=== PATIENT | female | born 2000 | race African-American/Black ===

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

== ENCOUNTER 2018-11-23 10:47 | Emergency (ER) | payer OTHER, SELFPAY ==
--- NOTE | 2018-11-23 11:02 | ER ---
Nurse's Notes [facility] Name: Emily Rahman Age: 18 yrs Sex: Female : 2000 Arrival Date: 11/23/2018 Time: 10:51 Bed Waiting Private MD: Diagnosis: Otitis media, unspecified, left ear Presentation: 11/23 10:58 Presenting complaint: Patient states: my left ear has been clogged for like a week. aa5 Transition of care: patient was not received from another setting of care. Onset of symptoms was November 16, 2018. Risk Assessment: Do you want to hurt yourself or someone else? Patient reports no desire to harm self or others. Initial Sepsis Screen: Does the patient meet any 2 criteria? No. Patient's initial sepsis screen is negative. Does the patient have a suspected source of infection? No. Patient's initial sepsis screen is negative. Care prior to arrival: None. 10:58 Method Of Arrival: Ambulatory aa5 10:58 Acuity: CUCA 5 aa5 Triage Assessment: 10:59 General: Appears in no apparent distress. Behavior is calm, cooperative. Pain: Denies aa5 pain. EENT: Reports "clogged ear". 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 - Social history:: Smoking status: Patient/guardian denies using tobacco. - Ebola Screening: : Patient negative for fever greater than or equal to 101.5 degrees Fahrenheit, and additional compatible Ebola Virus Disease symptoms Patient denies exposure to infectious person Patient denies travel to an Ebola-affected area in the 21 days before illness onset No symptoms or risks identified at this time. Screenin:00 Abuse screen: Denies threats or abuse. Nutritional screening: No deficits noted. aa5 Tuberculosis screening: No symptoms or risk factors identified. Fall Risk None identified. Assessment: 11:00 General: Appears comfortable, Behavior is calm, cooperative. Pain: Denies pain. Neuro: aa5 Level of Consciousness is awake, alert, obeys commands, Oriented to person, place, time, situation. Cardiovascular: Patient's skin is warm and dry. Respiratory: Airway is patent Respiratory effort is even, unlabored, Respiratory pattern is regular, symmetrical. GI: No signs and/or symptoms were reported involving the gastrointestinal system. : No signs and/or symptoms were reported regarding the genitourinary system. EENT: Reports "my left ear was clogged" . Derm: Skin is dry, Skin is normal, Skin temperature is warm. Musculoskeletal: Range of motion: intact in all extremities. Vital Signs: 10:59 BP 128 / 79; Pulse 76; Resp 18; Temp 98.2; Pulse Ox 99% ; Weight 89.81 kg; Height 5 ft. aa5 4 in. (162.56 cm); Pain 0/10; 10:59 Body Mass Index 33.99 (89.81 kg, 162.56 cm) aa5 ED Course: 10:51 Patient arrived in ED. mr 10:51 Peyton Westbrook [facility]C [facility] kb 10:51 Vijay Fowler MD is Attending Physician. kb 10:59 Triage completed. aa5 11:00 Arm band placed on right wrist. aa5 11:00 Patient has correct armband on for positive identification. aa5 11:00 No provider procedures requiring assistance completed. Patient did not have IV access aa5 during this emergency room visit. 11:09 Brianna Villegas, RN is Primary Nurse. aa5 Administered Medications: No medications were administered Outcome: 11:01 Discharge ordered by MD. kb 11:22 Discharged to home ambulatory. aj 11:22 Condition: good 11:22 Discharge instructions given to patient, Instructed on discharge instructions, follow up and referral plans. medication usage, Demonstrated understanding of instructions, follow-up care, medications, Prescriptions given X 1. 11:22 Patient left the ED. aj Signatures: Peyton Westbrook FNP-C FNP-Cara Pena RN RN aj Rivera, Mary mr Brianna Villegas, SOHA RN aa5 Corrections: (The following items were deleted from the chart) 11:28 11:00 Derm: Skin is pink, warm \\T\\ dry. aa5 aa5
--- NOTE | 2018-11-23 11:02 | EDPHYS ---
Physician Documentation [facility] Name: Emily Rahman Age: 18 yrs Sex: Female : 2000 Arrival Date: 11/23/2018 Time: 10:51 Bed Waiting Private MD: ED Physician Vijay Fowler HPI: 11/23 11:03 This 18 yrs old Black Female presents to ER via Ambulatory with complaints of Ear Pain. kb 11:03 The patient presents with "clogged". The complaints affect the left ear. Onset: The kb symptoms/episode began/occurred 1 week(s) ago. Modifying factors: The symptoms are alleviated by nothing, the symptoms are aggravated by nothing. Associated signs and symptoms: The patient has no apparent associated signs or symptoms. Severity of symptoms: At their worst the symptoms were moderate in the emergency department the symptoms are unchanged. The patient has not experienced similar symptoms in the past. The patient has not recently seen a physician. Pt reports her left ear has been clogged for a week. . BUSHLER: 10:59 LMP 11/16/2018 aa5 Historical: - Allergies: 10:59 No Known Allergies; aa5 - Home Meds: 10:59 None [Active]; aa5 - PMHx: 10:59 None; aa5 - PSHx: 10:59 Tonsillectomy; aa5 - Immunization history:: Adult Immunizations up to date. - Social history:: Smoking status: Patient/guardian denies using tobacco. - Ebola Screening: : Patient negative for fever greater than or equal to 101.5 degrees Fahrenheit, and additional compatible Ebola Virus Disease symptoms Patient denies exposure to infectious person Patient denies travel to an Ebola-affected area in the 21 days before illness onset No symptoms or risks identified at this time. ROS: 11:02 Constitutional: Negative for fever, chills, and weight loss, Cardiovascular: Negative kb for chest pain, palpitations, and edema, Respiratory: Negative for shortness of breath, cough, wheezing, and pleuritic chest pain, Abdomen/GI: Negative for abdominal pain, nausea, vomiting, diarrhea, and constipation, MS/Extremity: Negative for injury and deformity, Skin: Negative for injury, rash, and discoloration, Neuro: Negative for headache, weakness, numbness, tingling, and seizure. 11:02 ENT: Positive for ear pain. Exam: 11:02 Constitutional: This is a well developed, well nourished patient who is awake, alert, kb and in no acute distress. Head/Face: Normocephalic, atraumatic. Chest/axilla: Normal chest wall appearance and motion. Nontender with no deformity. No lesions are appreciated. Cardiovascular: Regular rate and rhythm with a normal S1 and S2. No gallops, murmurs, or rubs. Normal PMI, no JVD. No pulse deficits. Respiratory: Lungs have equal breath sounds bilaterally, clear to auscultation and percussion. No rales, rhonchi or wheezes noted. No increased work of breathing, no retractions or nasal flaring. Abdomen/GI: Soft, non-tender, with normal bowel sounds. No distension or tympany. No guarding or rebound. No evidence of tenderness throughout. Back: No spinal tenderness. No costovertebral tenderness. Full range of motion. Skin: Warm, dry with normal turgor. Normal color with no rashes, no lesions, and no evidence of cellulitis. MS/ Extremity: Pulses equal, no cyanosis. Neurovascular intact. Full, normal range of motion. Neuro: Awake and alert, GCS 15, oriented to person, place, time, and situation. Cranial nerves II-XII grossly intact. Motor strength 5/5 in all extremities. Sensory grossly intact. Cerebellar exam normal. Normal gait. 11:02 ENT: External ear(s): are unremarkable, Ear canal(s): marked amount of cerumen, no impaction, TM's: bulging, on the left. Vital Signs: 10:59 BP 128 / 79; Pulse 76; Resp 18; Temp 98.2; Pulse Ox 99% ; Weight 89.81 kg; Height 5 ft. aa5 4 in. (162.56 cm); Pain 0/10; 10:59 Body Mass Index 33.99 (89.81 kg, 162.56 cm) aa5 MDM: 10:52 Patient medically screened. kb 11:01 Data reviewed: vital signs, nurses notes. Data interpreted: Pulse oximetry: on room air kb is 99 %. Interpretation: normal. Counseling: I had a detailed discussion with the patient and/or guardian regarding: the historical points, exam findings, and any diagnostic results supporting the discharge/admit diagnosis, the need for outpatient follow up, an ENT specialist, to return to the emergency department if symptoms worsen or persist or if there are any questions or concerns that arise at home. Administered Medications: No medications were administered Disposition: 11:57 Co-signature as Attending Physician, Vijay Fowler MD. rn Disposition: 11/23/18 11:01 Discharged to Home. Impression: Otitis media, unspecified, left ear. - Condition is Stable. - Discharge Instructions: Otitis Media, Adult, [id number]. - Prescriptions for Amoxicillin 875 mg Oral Tablet - take 1 tablet by ORAL route every 12 hours for 10 days; 20 tablet. - Medication Reconciliation Form, Thank You Letter, Antibiotic Education, Prescription Opioid Use form. - Follow up: Emergency Department; When: As needed; Reason: Worsening of condition. Follow up: Private Physician; When: 2 - 3 days; Reason: Recheck today's complaints, Continuance of care, Re-evaluation by your physician. Signatures: Peyton Westbrook, [facility] CASH ON DELIVERY CLERK-Cara Pena RN Vijay Buck MD MD rn Calderon, Audri, RN RN aa5 Corrections: (The following items were deleted from the chart) 11:22 11:01 11/23/2018 11:01 Discharged to Home. Impression: Otitis media, unspecified, left aj ear. Condition is Stable. Forms are Medication Reconciliation Form, Thank You Letter, Antibiotic Education, Prescription Opioid Use. Follow up: Emergency Department; When: As needed; Reason: Worsening of condition. Follow up: Private Physician; When: 2 - 3 days; Reason: Recheck today's complaints, Continuance of care, Re-evaluation by your physician. kb
[2018-11-23 11:29] VITALS: BP 128/79; TEMP 98.2; O2SAT 99
== END 2018-11-23 11:22 | disposition home or self-care (01) ==
LOC: ER 10:47
DX: H66.92 Otitis media, unspecified, left ear (principal)
CPT/HCPCS: 99282

== ENCOUNTER 2019-06-23 13:26 | Emergency (ER) | payer OTHER, SELFPAY ==
--- OUTSIDE RECORDS SUMMARY | 2019-06-23 13:28 | XMS REPORT | Summary of Care ---
:2000 Author Organization [facility] Address [address] [place] [address] Care Team Providers Name Role Phone Doctor Unassigned, [place] Insurance Hmo Unavailable Ami Rahman Primary Care Provider Reason for Referral (Routine) Status Reason Specialty Diagnoses / Referred By Referred To Procedures Contact Contact New Request Maternal Diagnoses Supervision of high risk , antepartum Radha Arboleda Medicine Procedures CONSULT MATERNAL MEDICINE ULTRASOUND Preferred Location: [facility] [address] [place] [address] Reason for Visit Reason Comments Care Encounter Details Date Type Department Care Team Description 02/21/2019 Routine [facility]- Radha Arboleda Supervision of high risk , antepartum (Primary Dx); Visit [facility]; [address] Obesity affecting in second trimester [facility] [address] [place], [place] [phone] [id number] Allergies No Known Allergiesdocumented as of this encounter (statuses as of 02/21/2019) Medications Medication Sig Dispensed Refills Start Date End Date Status PNV 67-iron ps-folate Take 1 Each by 30 capsule 11 04/22/2017 Active no.1-dha (VITAFOL mouth daily. ULTRA) 29 mg iron- 1 mg-200 mg CapIndications: Missed menses doxylamine-pyridoxine Take 2 tablets by 120 tablet 1 05/20/2017 Active , vit B6, (DICLEGIS) mouth at bedtime. 10-10 mg per tabletIndications: Nausea and vomiting during prior to 22 weeks gestation ferrous sulfate 325 Take 1 tablet by 60 tablet 2 12/10/2017 Active mg (65 mg iron) mouth 2 (two) tabletIndications: times daily. Anemia of mother in , antepartum ascorbic acid, Take 1 tablet by 90 tablet 2 12/10/2017 Active vitamin C, 500 mg mouth 3 (three) tabletIndications: times daily. Anemia of mother in , antepartum documented as of this encounter (statuses as of 02/21/2019) Active Problems Patient Care Coordination Note iol 12-18-17 at 7am Problem Noted Date Susceptible to varicella (non-immune), currently 12/20/2018 Overview: Address pp [facility] 12/17/2018 Supervision of high risk , antepartum 04/22/2017 Obesity affecting 04/22/2017 Estimated Date of Delivery Comments Yes 08/17/2019 Based on last menstrual period of 11/10/2018 (Within Days) documented as of this encounter (statuses as of 02/21/2019) Resolved Problems Problem Noted Date Resolved Date Contraceptive management 10/27/2017 12/17/2018 Overview: Declines tubal Nausea and vomiting during prior to 22 weeks 05/20/2017 12/17/2018 gestation Abnormal maternal glucose tolerance, antepartum 04/23/2017 12/17/2018 Overview: passed 3hr Susceptible to varicella (non-immune), currently 04/23/20172018 documented as of this encounter (statuses as of 02/21/2019) Immunizations Name Administration Dates Next Due Tdap 10/13/2017 documented as of this encounter Social History Tobacco Use Types Packs/Day Years Used Date Never Smoker Smokeless Tobacco: Never Used Alcohol Use Drinks/Week oz/Week Comments No last sexual intercourse 12/09/2018 Estimated Date of Delivery Comments Yes 08/17/2019 Based on last menstrual period of 11/10/2018 (Within Days) Sex Assigned at Date Recorded Not on file Job Start Date Occupation Industry Not on file Not on file Not on file Travel History Travel Start Travel End No recent travel history available. documented as of this encounter Last Filed Vital Signs Vital Sign Reading Time Taken Comments Blood Pressure 134/77 02/21/2019 2:44 PM CDT Pulse 101 02/21/2019 2:44 PM CDT Temperature 37 C (98.6 F) 02/21/2019 2:44 PM CDT Respiratory Rate 16 02/21/2019 2:44 PM CDT Oxygen Saturation - - Inhaled Oxygen Concentration - - Weight 94.1 kg (207 lb 8 oz) 02/21/2019 2:44 PM CDT Height 160 cm (5' 3") 02/21/2019 2:44 PM CDT Body Mass Index 36.76 02/21/2019 2:44 PM CDT documented in this encounter Progress Notes Radha Arboleda, WIND OPERATIONS SUPERVISOR - 02/21/2019 6:00 PM CDT Chief complaint: Chief Complaint Patient presents with Care HPI CC: Follow Up Visit Emily Rahman is a 19 year old, , Black or female. Patient's last menstrual period was 11/10/2018 (within days). She is 14w5d with an intrauterine . Her estimated date of delivery is 2019, by Last Menstrual Period. She has no complaints today. She denies FM, contractions, LOF and bleeding today. Histories OB History Para Term AB Living 2 1 1 1 SAB TAB Ectopic Multiple Live Births 1 # Outcome Date GA Lbr Eben/2nd Weight Sex Delivery Anes PTL Lv 2 Current 1 Term 12/17/17 38w6d 5 lb 6 oz (2.438 kg) F VAGINAL N KRISTEL OB History Para Term AB Living 2 1 1 1 SAB TAB Ectopic Multiple Live Births 1 # Outcome Date GA Lbr Eben/2nd Weight Sex Delivery Anes PTL Lv 2 Current 1 Term 12/17/17 38w6d 5 lb 6 oz (2.438 kg) F VAGINAL N KRISTEL Past Medical History: Diagnosis Date Abnormal maternal glucose tolerance, antepartum 04/23/2017 Asthma 2001 resolved Family History Problem Relation Age of Onset Hypertension Mother Diabetes Maternal Aunt Arthritis NoFHx Asthma NoFHx defects NoFHx Breast Cancer NoFHx Colon Cancer NoFHx Ovarian Cancer NoFHx Uterine Cancer NoFHx Cancer NoFHx Depression NoFHx Genetic NoFHx Heart NoFHx High cholesterol NoFHx Mental retardation NoFHx Neurological NoFHx Osteoporosis NoFHx Psychiatry NoFHx Family Status Relation Name Status Mo (Not Specified) MAunt (Not Specified) NoFHx (Not Specified) Past Surgical History: Procedure Laterality Date CONSULT INTERVENTIONAL RADIOLOGY on Right gluteus TONSILLECTOMY 2004 Social History Socioeconomic History Marital status: Single Spouse name: Not on file Number of children: Not on file Years of education: Not on file Highest education level: Not on file Occupational History Not on file Social Needs Financial resource strain: Not on file Food insecurity: Worry: Not on file Inability: Not on file Transportation needs: Medical: Not on file Non-medical: Not on file Tobacco Use Smoking status: Never Smoker Smokeless tobacco: Never Used Substance and Sexual Activity Alcohol use: No Comment: last sexual intercourse 12/09/2018 Drug use: No Sexual activity: Yes Partners: Male Comment: last sexual intercourse 04/01/2017 Lifestyle Physical activity: Days per week: Not on file Minutes per session: Not on file Stress: Not on file Relationships Social connections: Talks on phone: Not on file Gets together: Not on file Attends pentecostalism service: Not on file Active member of club or organization: Not on file Attends meetings of clubs or organizations: Not on file Relationship status: Not on file Intimate partner violence: Fear of current or ex partner: Not on file Emotionally abused: Not on file Physically abused: Not on file Forced sexual activity: Not on file Other Topics Concern Not on file Social History Narrative Patient currently lives with mother and child. Patient denies history of abuse. Family has no pets Social History Substance and Sexual Activity Sexual Activity Yes Partners: Male Comment: last sexual intercourse 04/01/2017 Labs No new labs Radiology Radiology pending. Allergies Emily has No Known Allergies. Medications Emily has a current medication list which includes the following prescription(s ): ascorbic acid (vitamin c), ferrous sulfate, doxylamine-pyridoxine (vit b6), and pnv 67-iron ps-folate no.1-dha. Review of Systems Eyes: Negative for visual disturbance. Cardiovascular: Negative for leg swelling. Gastrointestinal: Negative for abdominal pain, nausea and vomiting. Genitourinary: Negative for vaginal bleeding, vaginal discharge and pelvic pain. Neurological: Negative for headaches. BP 134/77 (BP Location: Right arm, Patient Position: Sitting, BP CUFF SIZE: Adult Medium) | Pulse 101 | Temp 37 C (98.6 F) (Oral) | Resp 16 | Ht 5' 3" (1.6 m) | Wt 207 lb 8 oz (94.1 kg) | LMP11/10/2018 (Within Days) | BMI 36.76 kg/m Pregravid BMI: Could not be calculated Physical Exam PHYSICAL: General Exam: Neurological: Normal Abdomen: Normal Extremities: Normal Pelvic Exam: Uterus: 12cm Weeks Assessment/Plan Supervision of high risk , antepartum (primary encounter diagnosis) [facility] Comment:Routine Visit Plan: POCT URINALYSIS W SPECIFIC GRAVITY, CONSULT MATERNAL MEDICINE ULTRASOUND Preferred Location: [place] Denies zika virus risk, signs and symptoms such as fever,rash,joint pain, conjunctivitis (red eyes), muscle pain, headaches; outside [place] travel to areas affected by zika, and FOB exposure to zika. Educated on use of mosquito repellent. Obesity affecting in second trimester Comment: See BMI Plan: Patient encouraged to limit weight gain and sensible diet. Return to clinic in 4 weeks. Discussed treatment options. Medications as ordered. Reviewed patient instructions and provided printed copy. This visit did not involve counseling and coordination that comprised more than 50% of the visit time. [facility] Hua 02/21/2019 3:04 PM documented in this encounter Plan of Treatment Date Type Specialty Care Team Description 03/21/2019 Routine Visit OB Satellites Radha Arboleda FNP [address] [place] [address] [phone] Health Maintenance Due Date Last Done Comments MENINGOCOCCAL B VACCINES (1 01/10/2008 of 2 - Risk Bexsero 2-dose series) VARICELLA VACCINES (1 of 2 - 2011 13+ 2-dose series) HPV VACCINES (1 - Female 2013 3-dose series) PAP SMEAR 2019 INFLUENZA VACCINE (#1) 2019 CHLAMYDIA SCREENING 12/18/2019 12/17/2018, 12/09/2017, 10/13/2017, Additional history exists DTaP,Tdap,and Td Vaccines (2 10/14/2027 10/13/2017 - Td) MENINGOCOCCAL VACCINE Aged Out No longer eligible based on patient's age to complete this topic PNEUMOCOCCAL 0-64 YEARS Aged Out No longer eligible COMBINED SERIES based on patient's age to complete this topic documented as of this encounter Procedures Procedure Name Priority Date/Time Associated Diagnosis Comments POCT URINALYSIS Routine 02/21/2019 2:44 PM Supervision of high Results for this CDT risk , procedure are in antepartum the results section. documented in this encounter Results POCT URINALYSIS W SPECIFIC GRAVITY (02/21/2019 2:44 PM CDT) POCT U SP GRAV . 1.005 - 1.025 mg/dl POCT PH U . 5 - 8 mg/dl POCT U LEUK EST . Negative - Negative POCT U NIT . Negative - Negative POCT U PROT 2+ Negative - Negative POCT U GLU neg Negative - Negative POCT U KETONE . Negative - Negative POCT U UROBILI . 0.2 - 1 mg/dl POCT U BILI . Negative - Negative POCT U BLD . Negative - Negative POCT U COLOR POCT U APPEAR Specimen Urine - URINE, CLEAN CATCH documented in this encounter Visit Diagnoses Diagnosis Supervision of high risk , antepartum - Primary [facility] Obesity affecting in second trimester documented in this encounter Insurance Payer Benefit Plan / Subscriber ID Effective Dates Phone Address Type Group [facility] xxxxxxxxx 2019-Present Medicaid HEALTH PLAN - HEALTH MANAGED MEDICAID documented as of this encounter Advance Directives Name Relationship Healthcare Agent Relationship Communication Julieth Espinosa Mother Primary healthcare agent
--- OUTSIDE RECORDS SUMMARY | 2019-06-23 13:28 | XMS REPORT ---
:2000 [facility] Address [address] [place] [address] Dr. Vergara [address] [place] [address] Care Team Providers Name Role Phone Unavailable Unavailable Unavailable Problems This patient has no known problems. Allergies, Adverse Reactions, Alerts This patient has no known allergies or adverse reactions. Medications This patient has no known medications.
--- OUTSIDE RECORDS SUMMARY | 2019-06-23 13:29 | XMS REPORT | Summary of Care ---
:2000 Author Organization [facility] Address [address] [place] [address] Care Team Providers Name Role Phone Doctor Unassigned, [place] Insurance Hmo Unavailable Josiah Ami Marcela BRUSH HEAD MAKER Primary Care Provider Reason for Visit Reason Comments ULTRASOUND (Routine) Status Reason Specialty Diagnoses / Referred By Referred To Procedures Contact Contact Closed Maternal Diagnoses Supervision of high risk , antepartum [place], Medicine Procedures CONSULT MATERNAL MEDICINE ULTRASOUND Preferred Location: Moro Theresa , [facility] [address] [facility] [place] [address] Encounter Details Date Type Department Care Team Description 02/23/2019 Event Staff Visit [facility] Sabrina Vickers Uterine size- date Ultrasound- Araseli Bahena MD discrepancy in second [address] [facility] [place], [place] [address] [place], [place] [phone] [address] Allergies No Known Allergiesdocumented as of this encounter (statuses as of 02/23/2019) Medications Medication Sig Dispensed Refills Start Date [...] as of this encounter (statuses as of 02/23/2019) Active Problems Patient Care Coordination Note iol 12-18-17 at 7am Problem Noted Date Susceptible to varicella (non-immune), currently 12/20/2018 Overview: Address pp Multiparity 12/17/2018 Supervision of high risk , antepartum 04/22/2017 Obesity affecting 04/22/2017 Estimated Date of Delivery Comments Yes 08/17/2019 Based on last menstrual period of 11/10/2018 (Within Days) documented as of this encounter (statuses as of 02/23/2019) Resolved Problems Problem Noted Date Resolved Date Contraceptive management 10/27/2017 12/17/2018 Overview: Declines tubal Nausea and vomiting during prior to 22 weeks 05/20/2017 12/17/2018 gestation Abnormal maternal glucose tolerance, antepartum 04/23/2017 12/17/2018 Overview: passed 3hr Susceptible to varicella (non-immune), currently 04/23/20172018 documented as of this encounter (statuses as of 02/23/2019) Immunizations Name Administration Dates Next Due Tdap [...] of this encounter Last Filed Vital Signs Not on filedocumented in this encounter Plan of Treatment Date Type Specialty Care Team Description 03/21/2019 Routine Visit OB Satellites RoblesRadha, BRUSH HEAD MAKER [address] [place] [address] [phone] 03/22/2019 Event Staff Visit Maternal Medicine Health Maintenance Due Date Last Done Comments [...] this topic documented as of this encounter Results Not on filedocumented in this encounter Visit Diagnoses Diagnosis Uterine size-date discrepancy in second trimester Uterine size date discrepancy, antepartum condition or complication documented in this encounter Insurance Payer Benefit Plan / Subscriber ID Effective Dates Phone Address Type Group [facility] xxxxxxxxx 2019-Present Medicaid HEALTH PLAN - HEALTH MANAGED MEDICAID documented as of this encounter Advance Directives Name Relationship Healthcare Agent Relationship Communication Julieth Espinosa Mother Primary healthcare agent
--- OUTSIDE RECORDS SUMMARY | 2019-06-23 13:29 | XMS REPORT | Summary of Care ---
:2000 Author Organization [facility] Address [address] [place] [address] Care Team Providers Name Role Phone Doctor Unassigned, [place] Insurance Hmo Unavailable Ami Rahman [facility] Primary Care Provider Reason for Visit Reason Comments Care Encounter Details Date Type Department Care Team Description 03/22/2019 Routine [facility]- Ami Rahman, [employer] [address] [place] [facility] [place] [address] [phone] Supervision of high risk , antepartum (Primary Dx); Visit [place] Theresa Lord, [facility] [address] [facility] [place] [address] [phone] Multiparity; [address] Susceptible to varicella (non-immune), currently ; [place], [place] Obesity affecting in second trimester [id number] Allergies No Known Allergiesdocumented as of this encounter (statuses as of 03/22/2019) Medications Medication Sig Dispensed Refills Start Date [...] as of this encounter (statuses as of 03/22/2019) Active Problems Patient Care Coordination Note iol 12-18-17 at 7am Problem Noted Date Susceptible to varicella (non-immune), currently 12/20/2018 Overview: Address pp Multiparity 12/17/2018 Supervision of high risk , antepartum 04/22/2017 Obesity affecting 04/22/2017 Estimated Date of Delivery Comments Yes 08/17/2019 Based on last menstrual period of 11/10/2018 (Within Days) documented as of this encounter (statuses as of 03/22/2019) Resolved Problems Problem Noted Date Resolved Date Contraceptive management 10/27/2017 12/17/2018 Overview: Declines tubal Nausea and vomiting during prior to 22 weeks 05/20/2017 12/17/2018 gestation Abnormal maternal glucose tolerance, antepartum 04/23/2017 12/17/2018 Overview: passed 3hr Susceptible to varicella (non-immune), currently 04/23/20172018 documented as of this encounter (statuses as of 03/22/2019) Immunizations Name Administration Dates Next Due Tdap [...] Sign Reading Time Taken Comments Blood Pressure 113/72 03/22/2019 2:25 PM CDT Pulse 93 03/22/2019 2:25 PM CDT Temperature 36.9 C (98.5 F) 03/22/2019 2:25 PM CDT Respiratory Rate 16 03/22/2019 2:25 PM CDT Oxygen Saturation - - Inhaled Oxygen Concentration - - Weight 93.4 kg (206 lb) 03/22/2019 2:25 PM CDT Height 160 cm (5' 3") 03/22/2019 2:25 PM CDT Body Mass Index 36.49 03/22/2019 2:25 PM CDT documented in this encounter Progress Notes Theresa Lord, WHCNP - 03/22/2019 2:15 PM CDT Chief complaint: Chief Complaint Patient presents with Care HPI CC: Follow Up Visit Emily Rahman is a 19 year old, , Black or female. Patient's last menstrual period was 11/10/2018 (within days). She is 18w6d with an intrauterine . Her estimated date of delivery is 2019, by Last Menstrual Period. She has no complaints today. Histories OB History Para Term AB [...] sexual intercourse 04/01/2017 Labs No new labs and Routine Visit on 02/21/2019 Component Date Value POCT U SP GRAV 02/21/2019 . POCT PH U 02/21/2019 . POCT U LEUK EST 02/21/2019 . POCT U NIT 02/21/2019 . POCT U PROT 02/21/2019 2+ POCT U GLU 02/21/2019 neg POCT U KETONE 02/21/2019 . POCT U UROBILI 02/21/2019 . POCT U BILI 02/21/2019 . POCT U BLD 02/21/2019 . Routine Visit on 01/17/2019 Component Date Value POCT U SP GRAV 01/17/2019 . POCT PH U 01/17/2019 . POCT U LEUK EST 01/17/2019 . POCT U NIT 01/17/2019 . POCT U PROT 01/17/2019 neg POCT U GLU 01/17/2019 neg POCT U KETONE 01/17/2019 . POCT U UROBILI 01/17/2019 . POCT U BILI 01/17/2019 . POCT U BLD 01/17/2019 . Leather Dresser Visit on 12/23/2018 Component Date Value GLUC 1 HR 12/23/2018 90* Radiology Radiology pending. Allergies Emily has No Known Allergies. Medications Emily has a current medication list which includes the following prescription(s ): ascorbic acid (vitamin c), ferrous sulfate, doxylamine-pyridoxine (vit b6), and pnv 67-iron ps-folate no.1-dha. Review of Systems Constitutional: Negative. HENT: Negative. Eyes: Negative. Respiratory: Negative. Breasts: Negative. Cardiovascular: Negative. Gastrointestinal: Negative. Genitourinary: Negative. Musculoskeletal: Negative. Skin: Negative. Neurological: Negative. Psychiatric/Behavioral: Negative. Endocrine: Endocrine negative BP 113/72 (BP Location: Right arm, Patient Position: Sitting, BP CUFF SIZE: Adult Medium) | Pulse 93 | Temp 36.9 C (98.5 F) (Oral) | Resp 16 | Ht 5 ' 3" (1.6 m) | Wt 206 lb (93.4 kg) | LMP 11/10/2018 (Within Days) | BMI 36.49 kg/m Pregravid BMI: Could not be calculated Physical Exam PHYSICAL: General Exam: Neurological: Normal Abdomen: Normal gravid Extremities: Normal Pelvic Exam: Uterus: 19 Weeks Assessment/Plan Return to clinic in 4 weeks. Denies zika virus risk, signs and symptoms such as fever,rash,joint pain, conjunctivitis (red eyes),muscle pain, headaches; outside [place] travel to areas affected by zika, and FOB exposure to zika. Educated on use of mosquito repellent. Supervision of high risk , antepartum (primary encounter diagnosis) Multiparity Comment: routine visit Plan: POCT URINALYSIS W SPECIFIC GRAVITY, QUAD SCRN Susceptible to varicella (non-immune), currently Comment: no mgmt today Plan: address pp Obesity affecting in second trimester Comment: see bmi Plan: limit weight gain and sensible diet. This visit did not involve counseling and coordination that comprised more than 50% of the visit time. LINDA Vergara 03/22/2019 2:53 PM documented in this encounter Plan of Treatment Date Type Specialty Care Team Description 04/19/2019 Routine Visit OB Satellites Theresa Lord WHCNP [address] [place] [address] [phone] Name Type Priority Associated Diagnoses Order Schedule QUAD SCRN LAB Routine Supervision of high risk , Ordered: 2018 antepartum Health Maintenance Due Date Last Done Comments [...] Date/Time Associated Diagnosis Comments POCT URINALYSIS Routine 03/22/2019 2:31 PM Supervision of high Results for this CDT risk , procedure are in antepartum the results section. documented in this encounter Results POCT URINALYSIS W SPECIFIC GRAVITY (03/22/2019 2:31 PM CDT) POCT U SP GRAV . 1.005 - 1.025 mg/dl POCT PH U . 5 - 8 mg/dl POCT U LEUK EST . Negative - Negative POCT U NIT . Negative - Negative POCT U PROT Trace Negative - Negative POCT U GLU Neg Negative - Negative POCT U KETONE . Negative - Negative POCT U UROBILI . 0.2 - 1 mg/dl POCT U BILI . Negative - Negative POCT U BLD . Negative - Negative POCT U COLOR POCT U APPEAR Specimen Urine - URINE, CLEAN CATCH documented in this encounter Visit Diagnoses Diagnosis Supervision of high risk , antepartum - Primary Multiparity Susceptible to varicella (non-immune), currently Supervision of other high-risk Obesity affecting in second trimester documented in this encounter Insurance Payer Benefit Plan / Subscriber ID Effective Dates Phone Address Type Group [place] [facility] [place] [facility] xxxxxxxxx 2019-Present Medicaid HEALTH PLAN - HEALTH MANAGED MEDICAID documented as of this encounter Advance Directives Name Relationship Healthcare Agent Relationship Communication Julieth Espinosa Mother Primary healthcare agent
--- OUTSIDE RECORDS SUMMARY | 2019-06-23 13:29 | XMS REPORT | Summary of Care ---
:2000 Author Organization [facility] Address [address] [place] [address] Care Team Providers Name Role Phone Doctor Unassigned, [place] Insurance Hmo Unavailable Ami Rahman Primary Care Provider Encounter Details Date Type Department Care Team Description 02/23/[address] [facility] [place], [facility] [address] [facility] [address] [place] [address] [place] [address] [phone] Allergies No Known Allergiesdocumented as of this [...] Active Problems Patient Care Coordination Note iol 6-15-18 at 7am Problem Noted Date Susceptible to [...] Description 03/21/2019 Routine Visit OB Satellites Radha Arboleda, OPERATION SUPERVISOR [address] [place] [address] [phone] 03/22/2019 Coal Bagger Visit Maternal Medicine Health Maintenance Due Date [...] Results Not on filedocumented in this encounter Insurance Payer Benefit Plan / Subscriber ID Effective Dates Phone Address Type Group [facility] xxxxxxxxx 2019-Present Medicaid HEALTH PLAN - HEALTH MANAGED MEDICAID documented as of this encounter Advance Directives Name Relationship Healthcare Agent Relationship Communication Juliethvicky Espinosa Mother Primary healthcare agent
--- OUTSIDE RECORDS SUMMARY | 2019-06-23 13:29 | XMS REPORT | Summary of Care ---
:2000 Author Organization [facility] Address [address] [place] [address] Care Team Providers Name Role Phone Doctor Unassigned, [place] Insurance Hmo Unavailable Ami Rahman Primary Care Provider Reason for Referral (Routine) Status Reason Specialty Diagnoses / Referred By Referred To Procedures Contact Contact New Request Maternal Diagnoses Supervision of high risk , antepartum Radha Arboleda Medicine Procedures CONSULT MATERNAL MEDICINE ULTRASOUND Preferred Location: NATI Serna [address] [place] [address] Reason for Visit Reason Comments Care Encounter Details Date Type Department Care Team Description 02/21/2019 Routine [facility]- Radha Arboleda Supervision of high risk , antepartum (Primary Dx); Visit NATI Serna Multiparity; [address] Obesity affecting in second trimester [facility] [address] [place], [place] [phone] [address] Allergies No Known Allergiesdocumented as of [...] in this encounter Progress Notes Radha Arboleda, CORRECTIONS UNIT SUPERVISOR - 02/21/2019 6:00 PM CDT Chief [...] file Gets together: Not on file Attends restoration service: Not on file Active member of [...] GRAVITY, CONSULT MATERNAL MEDICINE ULTRASOUND Preferred Location: [place] Denies zika virus risk, signs and symptoms [...] OB Satellites Radha Arboleda FNP [address] [place] [address] [phone] Health Maintenance Due Date Last Done Comments [...] ID Effective Dates Phone Address Type Group [facility] xxxxxxxxx 2019-Present Medicaid HEALTH PLAN - HEALTH MANAGED MEDICAID documented as of this encounter Advance Directives Name Relationship Healthcare Agent Relationship Communication Julieth Espinosa Mother Primary healthcare agent
--- OUTSIDE RECORDS SUMMARY | 2019-06-23 13:30 | XMS REPORT | Summary of Care ---
:2000 Author Organization [facility] Address [address] [place] [address] Care Team Providers Name Role Phone Doctor Unassigned, [place] Insurance Hmo Unavailable Dee Rahmanily Marcela MASH PREPARATORY OPERATOR Primary Care Provider Reason for Visit Reason Comments LAB Encounter Details Date Type Department Care Team Description 03/22/2019 Telephone [facility] Theresa Lord, LAB [address] [place] [address] [address] [facility] [phone] [place] [address] Allergies No Known Allergiesdocumented as of [...] Description 04/19/2019 Routine Visit OB Satellites Theresa Lord, WHCNP [address] [place] [address] [phone] Health Maintenance Due Date Last Done Comments [...] ID Effective Dates Phone Address Type Group [place] [facility] [place] CHILDRENS xxxxxxxxx 2019-Present Medicaid HEALTH PLAN - HEALTH MANAGED MEDICAID documented as of this encounter Advance Directives Name Relationship Healthcare Agent Relationship Communication Julieth Espinosa Mother Primary healthcare agent
--- OUTSIDE RECORDS SUMMARY | 2019-06-23 13:30 | XMS REPORT | Summary of Care ---
:2000 Author Organization [facility] Address [address] [place] [address] Care Team Providers Name Role Phone Doctor Unassigned, [place] Insurance Hmo Unavailable Dee Rahmanily Marcela CORROSION CONTROL SPECIALIST Primary Care Provider Reason for Visit Reason Comments LAB Encounter Details Date Type Department Care Team Description 03/22/2019 Telephone [facility] Theresa Lord, LAB [address] [place] [address] [address] [facility] [phone] [place] [address] Allergies No Known Allergiesdocumented as of this encounter (statuses as of 03/23/2019) Medications Medication Sig Dispensed Refills Start Date [...] as of this encounter (statuses as of 03/23/2019) Active Problems Patient Care Coordination Note iol 12-18-17 at 7am Problem Noted Date Susceptible to varicella (non-immune), currently 12/20/2018 Overview: Address pp Multiparity 12/17/2018 Supervision of high risk , antepartum 04/22/2017 Obesity affecting 04/22/2017 Estimated Date of Delivery Comments Yes 08/17/2019 Based on last menstrual period of 11/10/2018 (Within Days) documented as of this encounter (statuses as of 03/23/2019) Resolved Problems Problem Noted Date Resolved Date Contraceptive management 10/27/2017 12/17/2018 Overview: Declines tubal Nausea and vomiting during prior to 22 weeks 05/20/2017 12/17/2018 gestation Abnormal maternal glucose tolerance, antepartum 04/23/2017 12/17/2018 Overview: passed 3hr Susceptible to varicella (non-immune), currently 04/23/20172018 documented as of this encounter (statuses as of 03/23/2019) Immunizations Name Administration Dates Next Due Tdap [...] OB Satellites Theresa Lord, WHCNP [address] [place] [address] [phone] Health Maintenance Due Date Last Done Comments [...] ID Effective Dates Phone Address Type Group [place] [facility] [place] CHILDRENS xxxxxxxxx 2019-Present Medicaid HEALTH PLAN - HEALTH MANAGED MEDICAID documented as of this encounter Advance Directives Name Relationship Healthcare Agent Relationship Communication Julieth Espinosa Mother Primary healthcare agent
--- OUTSIDE RECORDS SUMMARY | 2019-06-23 13:30 | XMS REPORT | Summary of Care ---
:2000 Author Organization [facility] Address [address] [place] [address] Care Team Providers Name Role Phone Doctor Unassigned, [place] Insurance Hmo Unavailable Dee Rahmanily Marcela MANUAL QA TESTER Primary Care Provider Reason for Visit Reason Comments LAB Encounter Details Date Type Department Care Team Description 03/22/2019 Telephone [facility] Theresa Lord, LAB [address] [place] [address] [address] [facility] [phone] [place] [address] Allergies No Known Allergiesdocumented as [...] OB Satellites Theresa Lord, WHCNP [address] [place] [address] [phone] Health Maintenance Due Date Last Done Comments [...] ID Effective Dates Phone Address Type Group [place] [facility] [place] CH[facility]DRENS xxxxxxxxx 2019-Present Medicaid HEALTH PLAN - HEALTH MANAGED MEDICAID documented as of this encounter Advance Directives Name Relationship Healthcare Agent Relationship Communication Julieth Espinosa Mother Primary healthcare agent
[2019-06-23] MEDS ORDERED: ONDANSETRON 4 MG/2 ML VIAL ONE (14:32)
[2019-06-23] MEDS ORDERED: NA CHLORIDE 0.9% 1,000 ML ONE (14:32)
[2019-06-23 15:13] LABS: Absolute Lymphocytes (CBC) 2.3 K/uL (0.7-4.9); Basophils % 0.3 % (0-1.3); Hematocrit 33.5 % (36.0-45.0); Lymphocytes % 21.6 % (15.3-44.8); MPV 9.9 fL (7.6-11.3); RBC Red Blood Cell Count 4.58 M/uL (3.86-4.86)
[2019-06-23 15:28] LABS: ALT/SGPT 12 U/L (12-78); AST/SGOT 10 U/L (15-37); Albumin 2.8 g/dL (3.4-5.0); Alkaline Phosphatase 150 U/L (45-117); BUN Blood Urea Nitrogen 6 mg/dL (7-18); Bicarbonate 24 mmol/L (21-32); Bilirubin Direct 0.1 mg/dL (0-0.2); Bilirubin Total 0.3 mg/dL (0.2-1.0); Glucose Level 81 mg/dL (74-106); Lipase 99 U/L (73-393); Potassium 3.3 mmol/L (3.5-5.1); Protein, Total 6.9 g/dL (6.4-8.2); Sodium Level 138 mmol/L (136-145)
[2019-06-23 16:23] LABS: Urine Blood NEGATIVE (NEG); Urine Glucose NEGATIVE (NEG); Urine Protein NEGATIVE (NEG); Urine Specific Gravity 1.015 (1.005-1.030)
[2019-06-23 16:37] LABS: Urine Bacteria 20-50 /HPF (<20); Urine Culture Reflex Order NOT NEEDED; Urine RBC <5 /HPF (NONE SEEN)
--- NOTE | 2019-06-23 17:08 | ER ---
Nurse's Notes [facility] Name: Emily Rahman Age: 19 yrs Sex: Female : 2000 Arrival Date: 06/23/2019 Time: 13:29 Bed 24 Private MD: Diagnosis: Urinary tract infection, site not specified;Vomiting, unspecified Presentation: 06/23 13:51 Presenting complaint: Patient states: N/V/D and epigastric pain that began 3 days ago. ss Pt is 32 weeks . Denies lower abd discomfort. Believes she picked up the same stomach bug that her daughter had as she has similar symptoms. Transition of care: patient was not received from another setting of care. Onset of symptoms was June 20, 2019. Risk Assessment: Do you want to hurt yourself or someone else? Patient reports no desire to harm self or others. Initial Sepsis Screen: Does the patient meet any 2 criteria? HR > 90 bpm. Does the patient have a suspected source of infection? No. Patient's initial sepsis screen is negative. Care prior to arrival: None. 13:51 Method Of Arrival: Ambulatory ss 13:51 Acuity: CUCA 3 ss BARTACKER: 14:50 2, Full Term 1 tr5 Historical: - Allergies: 13:52 No Known Allergies; ss - Home Meds: 13:52 None [Active]; ss - PMHx: 13:52 None; ss - PSHx: 13:52 Tonsillectomy; ss - Immunization history:: Adult Immunizations up to date. - Social history:: Smoking status: Patient/guardian denies using tobacco. - Ebola Screening: : Patient denies exposure to infectious person Patient denies travel to an Ebola-affected area in the 21 days before illness onset. - Family history:: not pertinent. - Hospitalizations: : No recent hospitalization is reported. Screenin:50 Abuse screen: Denies threats or abuse. Nutritional screening: No deficits noted. tr5 Tuberculosis screening: No symptoms or risk factors identified. Fall Risk None identified. Assessment: 14:50 General: Appears uncomfortable, Behavior is calm, cooperative, appropriate for age. tr5 Pain: Complains of pain in abdomen. Neuro: Level of Consciousness is awake, alert, obeys commands, Oriented to person, place, time, Bakery Machine Mechanic Supervisor are equal bilaterally Moves all extremities. Cardiovascular: Heart tones present Capillary refill < 3 seconds. Respiratory: Airway is patent Respiratory effort is even, unlabored, Respiratory pattern is regular, symmetrical. GI: Bowel sounds present X 4 quads. Abd is soft X 4 quads. GI: Reports upper abdominal pain, diarrhea, nausea, vomiting. : No signs and/or symptoms were reported regarding the genitourinary system. EENT: No signs and/or symptoms were reported regarding the EENT system. Derm: No signs and/or symptoms reported regarding the dermatologic system. Musculoskeletal: No signs and/or symptoms reported regarding the musculoskeletal system. 16:00 Reassessment: Patient appears in no apparent distress at this time. Patient and/or tr5 family updated on plan of care and expected duration. Pain level reassessed. Patient is alert, oriented x 3, equal unlabored respirations, skin warm/dry/pink. Vital Signs: 13:50 BP 111 / 75; Pulse 111; Resp 16; Temp 98.5; Pulse Ox 100% on R/A; Weight 94.8 kg; ss Height 5 ft. 4 in. (162.56 cm); Pain 6/10; 15:00 BP 97 / 71; Pulse 92; Resp 16; Pulse Ox 100% on R/A; tr5 13:50 Body Mass Index 35.87 (94.80 kg, 162.56 cm) ss Vitals: 14:50 Heart Tones 140 BPM. tr5 ED Course: 13:29 Patient arrived in ED. as 13:50 Lewis Mitchell, RN is Primary Nurse. tr5 13:52 Triage completed. ss 13:53 Arm band placed on right wrist. ss 14:11 Vijay Fowler MD is Attending Physician. rn 14:40 Initial lab(s) drawn, by mo, sent to lab. Inserted saline lock: 22 gauge in right tr5 antecubital area, using aseptic technique. 14:50 Bed in low position. Call light in reach. Side rails up X 1. tr5 14:56 Flu Sent. tr5 17:37 No provider procedures requiring assistance completed. IV discontinued. tr5 Administered Medications: 14:56 Drug: Zofran 4 mg Route: IVP; Site: right antecubital; tr5 14:59 Drug: NS 0.9% 1000 ml Route: IV; Rate: 1000 ml; Site: right antecubital; tr5 Outcome: 17:07 Discharge ordered by . rn 17:37 Discharged to home ambulatory. tr5 17:37 Condition: stable 17:37 Discharge instructions given to patient. 17:41 Patient left the ED. tr5 Signatures: Colleen Castaneda Roman, MD MD rn Smirch, Shelby, RN RN ss Rodriguez, Tommie, RN RN tr5
--- NOTE | 2019-06-23 17:09 | EDPHYS ---
Physician Documentation [facility] Name: Emily Rahman Age: 19 yrs Sex: Female : 2000 Arrival Date: 06/23/2019 Time: 13:29 Bed 24 Private MD: ED Physician Vijay Fowler HPI: 06/23 15:08 This 19 yrs old Black Female presents to ER via Ambulatory with complaints of Vomiting, rn diarrhea. 15:08 The patient presents to the emergency department with nausea, vomiting, diarrhea. rn Onset: The symptoms/episode began/occurred 3 day(s) ago. Possible causes: unknown. The symptoms are aggravated by nothing. The symptoms are alleviated by nothing. Severity of symptoms: At their worst the symptoms were mild in the emergency department the symptoms are unchanged. The patient has not experienced similar symptoms in the past. Reports nausea/vomiting/diarrhea, began 3 days ago, is 32 weeks but does not feel like anything wrong with . Daughter with similar symptoms recently and told has stomach bug. Throwing up about 3 times/day. No fever. No abd pain. No leakage of fluid or vaginal bleeding. . RELAY MAN: 14:50 2, Full Term 1 tr5 Historical: - Allergies: 13:52 No Known Allergies; ss - Home Meds: 13:52 None [Active]; ss - PMHx: 13:52 None; ss - PSHx: 13:52 Tonsillectomy; ss - Immunization history:: Adult Immunizations up to date. - Social history:: Smoking status: Patient/guardian denies using tobacco. - Ebola Screening: : Patient denies exposure to infectious person Patient denies travel to an Ebola-affected area in the 21 days before illness onset. - Family history:: not pertinent. - Hospitalizations: : No recent hospitalization is reported. ROS: 15:08 Constitutional: Negative for fever, chills, and weight loss, Eyes: Negative for injury, rn pain, redness, and discharge, Neck: Negative for injury, pain, and swelling, Cardiovascular: Negative for chest pain, palpitations, and edema, Respiratory: Negative for shortness of breath, cough, wheezing, and pleuritic chest pain, Abdomen/GI: Negative for diarrhea, and constipation, MS/Extremity: Negative for injury and deformity, Skin: Negative for injury, rash, and discoloration, Neuro: Negative for headache, weakness, numbness, tingling, and seizure. Exam: 15:08 Constitutional: This is a well developed, well nourished patient who is awake, alert, rn and in no acute distress. Laying on back watching something on her phone. Head/Face: Normocephalic, atraumatic. Eyes: Pupils equal round and reactive to light, extra-ocular motions intact. Lids and lashes normal. Conjunctiva and sclera are non-icteric and not injected. Cornea within normal limits. Periorbital areas with no swelling, redness, or edema. ENT: MMM Cardiovascular: Tachycardic, regular, No pulse deficits. Respiratory: No increased work of breathing, no retractions or nasal flaring. Abdomen/GI: soft, non-tender, no rebound or gaurding, no focal tenderness MS/ Extremity: Pulses equal, no cyanosis. Neurovascular intact. Full, normal range of motion. Equal circumference. Neuro: Awake and alert, GCS 15 Vital Signs: 13:50 BP 111 / 75; Pulse 111; Resp 16; Temp 98.5; Pulse Ox 100% on R/A; Weight 94.8 kg; ss Height 5 ft. 4 in. (162.56 cm); Pain 6/10; 15:00 BP 97 / 71; Pulse 92; Resp 16; Pulse Ox 100% on R/A; tr5 13:50 Body Mass Index 35.87 (94.80 kg, 162.56 cm) ss MDM: 14:11 Patient medically screened. rn 17:02 Differential diagnosis: viral gastroenteritis, gastroenteritis. Data reviewed: vital rn signs, nurses notes, lab test result(s), and as a result, I will discharge patient. Counseling: I had a detailed discussion with the patient and/or guardian regarding: the historical points, exam findings, and any diagnostic results supporting the discharge/admit diagnosis, lab results, the need for outpatient follow up, to return to the emergency department if symptoms worsen or persist or if there are any questions or concerns that arise at home. Special discussion: I discussed with the patient/guardian in detail that at this point there is no indication for admission to the hospital. It is understood, however, that if the symptoms persist or worsen the patient needs to return immediately for re-evaluation. ED course: Pt improved, some bacteria in urine, will dc home with zofran and macrobid.. 06/23 14:22 Order name: Basic Metabolic Panel; Complete Time: 15:51 rn 06/23 14:22 Order name: CBC with Diff; Complete Time: 15:51 rn 06/23 14:22 Order name: Creatinine for Radiology; Complete Time: 15:51 rn 06/23 14:22 Order name: Hepatic Function; Complete Time: 15:51 rn 06/23 14:22 Order name: Lipase; Complete Time: 15:51 rn 06/23 14:22 Order name: Urine Microscopic Only; Complete Time: 17:01 rn 06/23 14:22 Order name: IV Saline Lock; Complete Time: 15:00 rn 06/23 14:22 Order name: Labs collected and sent; Complete Time: 15:00 rn 06/23 14:22 Order name: Urine Dipstick-Ancillary (obtain specimen); Complete Time: 16:10 06/23 14:23 Order name: Flu; Complete Time: 16:24 rn 06/23 16:11 Order name: Urine Dipstick--Ancillary (enter results); Complete Time: 17:01 [facility] 06/23 16:11 Order name: Urine --Ancillary (enter results); Complete Time: 17:01 [facility] 06/23 14:22 Order name: FHT's; Complete Time: 14:59 rn Administered Medications: 14:56 Drug: Zofran 4 mg Route: IVP; Site: right antecubital; tr5 14:59 Drug: NS 0.9% 1000 ml Route: IV; Rate: 1000 ml; Site: right antecubital; tr5 Disposition: 06/23/19 17:07 Discharged to Home. Impression: Urinary tract infection, site not specified, Vomiting, unspecified. - Condition is Stable. - Discharge Instructions: Urinary Tract Infection, Adult. - Prescriptions for Zofran ODT 4 mg Oral tablet,disintegrating - place 1 tablet by TRANSLINGUAL route every 8 hours As needed; 15 tablet. Macrobid 100 mg Oral Capsule - take 1 capsule by ORAL route every 12 hours for 7 days; 14 capsule. - Medication Reconciliation Form, Thank You Letter, Antibiotic Education, Prescription Opioid Use form. - Follow up: Private Physician; When: As needed; Reason: Recheck today's complaints, Re-evaluation by your physician. - Problem is new. - Symptoms have improved. Signatures: Dispatcher [employer] Vijay Jordan MD MD rn Smirch, Shelby, RN RN ss Rodriguez, Tommie, RN RN tr5 Corrections: (The following items were deleted from the chart) 17:41 17:07 06/23/2019 17:07 Discharged to Home. Impression: Urinary tract infection, site tr5 not specified; Vomiting, unspecified. Condition is Stable. Forms are Medication Reconciliation Form, Thank You Letter, Antibiotic Education, Prescription Opioid Use. Follow up: Private Physician; When: As needed; Reason: Recheck today's complaints, Re-evaluation by your physician. Problem is new. Symptoms have improved. rn
[2019-06-23 18:09] VITALS: TEMP 98.5; O2SAT 100
[2019-06-23 18:10] VITALS: BP 97/71
== END 2019-06-23 17:41 | disposition home or self-care (01) ==
LOC: ER 13:26
DX: O23.43 Unspecified infection of urinary tract in pregnancy, third trimester (principal); Z3A.32 32 weeks gestation of pregnancy
CPT/HCPCS: 85025; 80048; 36415; 81025; 80076; 83690; 87804 ×2; 96374; 99284; J7030; J2405; 81003; 81015

== ENCOUNTER 2019-10-14 14:07 | Emergency (ER) | payer OTHER ==
--- OUTSIDE RECORDS SUMMARY | 2019-10-14 14:09 | XMS REPORT ---
:2000 Author Organization [facility] t Address [address] Vergara [address] [place] [id number] Care Team Providers Name Role Phone Unavailable Unavailable Unavailable Problems This patient has no known problems. Allergies, Adverse Reactions, Alerts This patient has no known allergies or adverse reactions. Medications This patient has no known medications.
--- OUTSIDE RECORDS SUMMARY | 2019-10-14 14:12 | XMS REPORT | Summary of Care ---
:2000 Author Organization [facility] Address [address] [place] [address] Care Team Providers Name Role Phone Doctor Unassigned, Name Insurance Hmo Unavailable Naheed Lord HUMERA Primary Care Provider Reason for Visit Reason Comments Blood Pressure (Routine) Status Reason Specialty Diagnoses / Referred By Referred To Procedures Contact Contact New Request OB Satellites Diagnoses Susceptible to varicella (non-immune), currently Obesity (BMI 30-39.9) 39 weeks gestation of (spontaneous vaginal delivery) Single live History of asthma Supervision of high risk , antepartum Monique Friedman FNP [facility] [address] Procedures DISCHARGE FOLLOW-UP: [employer] [place] [address] Encounter Details Date Type Department Care Team Description 08/18/2019 Nurse Visit [facility]- Thiago Lord [facility] [address] [place] [address] [facility] check [place] [facility] [address] [place] [address] Allergies No Known Allergiesdocumented as of this encounter (statuses as of 08/18/2019) Medications Medication Sig Dispensed Refills Start Date End Date Status docusate calcium 240 Take 1 capsule by 60 capsule 1 08/12/2019 Active mg capsuleIndications: mouth once daily 39 weeks gestation of as needed for , Constipation. (spontaneous vaginal delivery), [facility] ibuprofen 600 mg Take 1 tablet by 60 tablet 1 08/12/2019 Active tabletIndications: 39 mouth every 6 weeks gestation of (six) hours as , needed (Pain). (spontaneous vaginal Take with food or delivery), [facility] milk. Iron Fum & P-FA-Vit B Take 1 capsule by 30 capsule 2 0 Active & C No.9 (INTEGRA mouth daily. PLUS) 125 mg iron- 1 mg CapIndications: 39 weeks gestation of , (spontaneous vaginal delivery), [facility] documented as of this encounter (statuses as of 08/18/2019) Active Problems Patient Care Coordination Note iol 12-18-17 at 7am Problem Noted Date (spontaneous vaginal delivery) 08/12/2019 Single live 08/12/2019 History of asthma 08/12/2019 Gestational hypertension 08/11/2019 Obesity (BMI 30-39.9) 08/10/2019 39 weeks gestation of 08/10/2019 Susceptible to varicella (non-immune), currently pregn ant 12/20/2018 Overview: Address pp documented as of this encounter (statuses as of 08/18/2019) Resolved Problems Problem Noted Date Resolved Date Multip[facility] 12/17/2018 08/13/2019 Contraceptive management 10/27/2017 12/17/2018 Overview: Declines tubal Nausea and vomiting during prior to 22 weeks 05/2012/17/2018 gestation Abnormal maternal glucose tolerance, antepartum 04/23/2017 12/17/2018 Overview: passed 3hr Susceptible to varicella (non-immune), currently 12/17/2018 Supervision of high risk , antepartum 04/22/2017 08/13/2019 Obesity affecting 04/22/2017 08/13/2019 documented as of this encounter (statuses as of 08/18/2019) Immunizations Name Administration Dates Next Due Tdap 05/30/2019, 10/13/2017 Varicella (varivax)(chicken pox) 08/13/2019 () documented as of this encounter Social History Tobacco Use Types Packs/Day Years Used Date Never Smoker Smokeless Tobacco: Never Used Alcohol Use Drinks/Week oz/Week Comments No last sexual inte rcourse 12/09/2018 Sex Assigned at Date Recorded Not on file Job Start Date Occupation Industry Not on file Not on file Not on file Travel History Travel Start Travel End No recent travel history available. documented as of this encounter Last Filed Vital Signs Vital Sign Reading Time Taken Comments Blood Pressure 124/80 08/18/2019 3:56 PM DIAL BRUSHER Pulse 92 08/18/2019 3:56 PM DIAL BRUSHER Temperature 37.2 C (99 F) 08/18/2019 3:56 PM DIAL BRUSHER Respiratory Rate 16 08/18/2019 3:56 PM DIAL BRUSHER Oxygen Saturation - - Inhaled Oxygen Concentration - - Weight 86.6 kg (190 lb 14.4 oz) 08/18/2019 3:56 PM DIAL BRUSHER Height 160 cm (5' 3") 08/18/2019 3:56 PM DIAL BRUSHER Body Mass Index 33.82 08/18/2019 3:56 PM DIAL BRUSHER documented in this encounter Progress Notes Loretta Preciado RN - 08/18/2019 9:00 AM CSTPatient present for 1 week bp check post delivery. Vitals WNL, Patient denies BAJWA, blurry vision, and or swelling. Strict er warnings given. Patient verbalized understanding. LORETTA PRECIADO RN 08/18/2019 3:59 PM BRUSHER documented in this encounter Plan of Treatment Date Type Specialty Care Team Description 09/01/2019 Routine Visit OB Satellites [facility] [address], [place] [address] [phone] Health Maintenance Due Date Last Done Comments WELL CARE VISIT: -01/10/2020 2019 YEARS (yearly) PAP SMEAR 04/24/2020 Postponed from 2019 (Preg nant or ) HPV VACCINES (1 - Female 06/03/2020 Postpon ed from 2-dose series) 2009 (Preg nant or ) MENINGOCOCCAL B VACCINES (1 06/12/2020 Post poned from of 2 - Risk Bexsero 2-dose 01/09 ( or series) ) INFLUENZA VACCINE (#1) 2020 Postponed from 03/06/2019 (Refu sed) VARICELLA VACCINES (1 of 2 06/13/2020 Postp oned from - 2-dose childhood series) 01/09 ( or ) CHLAMYDIA SCREENING 07/26/2020 07/26/2019, 12/17/2018, 12/09/2017, Additional history exists DTaP,Tdap,and Td Vaccines 05/30/2029 05/30/2019, 10/13/2017 (3 - Td) MENINGOCOCCAL VACCINE Aged Out No longer eligible based on patient 's age to complete this topic PNEUMOCOCCAL 0-64 YEARS Aged Out No longe r eligible COMBINED SERIES based on patient 's age to complete this topic documented as of this encounter Results Not on filedocumented in this encounter Visit Diagnoses Diagnosis Blood pressure check - Primary Screening for hypertension documented in this encounter Insurance Payer Benefit Plan / Subscriber ID Effective Dates Phone Addre ss Type Group [place] [employer] [place] [employer] xxxxxxxxx 2019-Present Medicaid HEALTH PLAN - HEALTH MANAGED MEDICAID documented as of this encounter Advance Directives Name Relationship Healthcare Agent Relationship Co mmunication Julieth Espinosa Mother Primary healthcare agent
--- OUTSIDE RECORDS SUMMARY | 2019-10-14 14:13 | XMS REPORT | Summary of Care ---
:2000 Author Organization [facility] Address [address] [place] [address] Care Team Providers Name Role Phone Doctor Unassigned, Name Insurance Hmo Unavailable Naheed Lord [facility] Primary Care Provider Reason for Visit Reason Comments Care Encounter Details Date Type Department Care Team Description 07/26/2019 Routine [facility] [place], [facility] vision of high risk , antepartum (Primary Dx); Visit [place] Theresa Farfan [facility]; [address] Susceptible to varicella (no n-immune), currently ; [facility] Obesity affecting in third [facility] [phone] [facility] [phone] [place] [address] Allergies No Known Allergiesdocumented as of this encounter (statuses as of 07/26/2019) Medications Medication Sig Dispensed Refills Start Date End Date Status PNV 67-iron ps-folate Take 1 Each by 30 capsule 11 04/22/2017 Active no.1-dha (VITAFOL mouth daily. ULTRA) 29 mg iron- 1 mg-200 mg CapIndications: Missed menses doxylamine-pyridoxine Take 2 tablets by 120 tablet 1 7 Active , vit B6, (DICLEGIS) mouth at [...] as of this encounter (statuses as of 07/26/2019) Active Problems Patient Care Coordination Note iol 6-15-18 at 7am Problem Noted Date Susceptible to varicella (non-immune), currently pregn ant 12/20/2018 Overview: Address pp [facility] 12/17/2018 Supervision of high risk , antepartum 017 Obesity affecting 04/22/2017 Estimated Date of Delivery Comments Yes 08/17/2019 Based on last menstr ual period of 11/10/2018 (Within Days) documented as of this encounter (statuses as of 07/26/2019) Resolved Problems Problem Noted Date Resolved Date Contraceptive management 10/27/2017 12/17/2018 Overview: Declines tubal Nausea and vomiting during prior to 22 weeks 05/2012/17/2018 gestation Abnormal maternal glucose tolerance, antepartum 04/23/2017 12/17/2018 Overview: passed 3hr Susceptible to varicella (non-immune), currently 12/17/2018 documented as of this encounter (statuses as of 07/26/2019) Immunizations Name Administration Dates Next Due Tdap 05/30/2019, 10/13/2017 documented as of this encounter Social History Tobacco Use Types Packs/Day Years Used Date Never Smoker Smokeless Tobacco: Never Used Alcohol Use Drinks/Week oz/Week Comments No last sexual inte rcourse 12/09/2018 Estimated Date of Delivery Comments Yes 08/17/2019 Based on last menstr ual period of 11/10/2018 (Within Days) Sex Assigned at Date Recorded Not on file Job Start Date Occupation Industry Not on file Not on file Not on file Travel History Travel Start Travel End No recent travel history available. documented as of this encounter Last Filed Vital Signs Vital Sign Reading Time Taken Comments Blood Pressure 134/87 07/26/2019 3:14 PM BOW MACHINE OPERATOR Pulse 92 07/26/2019 3:14 PM BOW MACHINE OPERATOR Temperature 37.7 C (99.9 F) 07/26/2019 3:14 PM BOW MACHINE OPERATOR Respiratory Rate 16 07/26/2019 3:14 PM BOW MACHINE OPERATOR Oxygen Saturation - - Inhaled Oxygen Concentration - - Weight 96.4 kg (212 lb 8 oz) 07/26/2019 3:14 PM BOW MACHINE OPERATOR Height 165.1 cm (5' 5") 07/26/2019 3:14 PM BOW MACHINE OPERATOR Body Mass Index 35.36 07/26/2019 3:14 PM BOW MACHINE OPERATOR documented in this encounter Progress Notes Pham Sharma RN - 07/26/2019 2:45 PM CSTPatient BW has been scheduled for IOL on 08/10/2019 @ 39.0wks, 7:30pm. Theresa Alvarez HUMERA - 07/26/2019 2:45 PM BOW MACHINE OPERATOR Chief complaint: Chief Complaint Patient presents with Care HPI CC: Follow Up Visit Emily Rahman is a 19 year old, , Black or female. Patient's last menstrual period was 11/10/2018 (within days). She is 36w6d with an intrauterine . Her estimated date of delivery is 08/17/2019, by Last Menstrual Period. She has no complaints today. She reports +FM and denies contractions, LOF and bleeding today. Histories OB History Para Term AB Living 2 1 1 1 SAB TAB Ectopic Multiple Live Births 1 # Outcome Date GA Lbr Eben/2nd Weight Sex Delivery Anes PTL Lv 2 Current 1 Term 12/17/17 38w6d 5 lb 6 oz (2.438 kg) F VAGINAL N KRISTEL Past Medical History: Diagnosis Date Abnormal maternal glucose tolerance, antepartum 04/23/2017 Asthma 2000 resolved Family History Problem Relation Age of [...] file Gets together: Not on file Attends [employer] service: Not on file Active member of [...] last sexual intercourse 04/01/2017 Labs No new labs, Labs are pending. and Routine Visit on 07/11/2019 Component Date Value POCT U SP GRAV 07/11/2019 . POCT PH U 07/11/2019 . POCT U LEUK EST 07/11/2019 . POCT U NIT 07/11/2019 . POCT U PROT 07/11/2019 Trace POCT U GLU 07/11/2019 Neg POCT U KETONE 07/11/2019 . POCT U UROBILI 07/11/2019 . POCT U BILI 07/11/2019 . POCT U BLD 07/11/2019 . Routine Visit on 06/13/2019 Component Date Value POCT U SP GRAV 06/13/2019 . POCT PH U 06/13/2019 . POCT U LEUK EST 06/13/2019 . POCT U NIT 06/13/2019 . POCT U PROT 06/13/2019 1+ POCT U GLU 06/13/2019 Neg POCT U KETONE 06/13/2019 . POCT U UROBILI 06/13/2019 . POCT U BILI 06/13/2019 . POCT U BLD 06/13/2019 . Routine Visit on 05/30/2019 Component Date Value HIV 1/2 Ag-Ab with Reflex 05/30/2019 Negative HIV Semi-quantitative 05/30/2019 0.08 POCT U SP GRAV 05/30/2019 . POCT PH U 05/30/2019 . POCT U LEUK EST 05/30/2019 . POCT U NIT 05/30/2019 . POCT U PROT 05/30/2019 1+ POCT U GLU 05/30/2019 Neg POCT U KETONE 05/30/2019 . POCT U UROBILI 05/30/2019 . POCT U BILI 05/30/2019 . POCT U BLD 05/30/2019 . Routine Visit on 05/16/2019 Component Date Value GLUC 1 HR 05/16/2019 113* WBC 05/16/2019 9.96 RBC 05/16/2019 4.55 HGB 05/16/2019 10.9* HCT 05/16/2019 36.0 MCV 05/16/2019 79.1* MCH 05/16/2019 24.0* MCHC 05/16/2019 30.3* RDW-SD 05/16/2019 38.5* RDW-CV 05/16/2019 13.5 PLT 05/16/2019 271 MPV 05/16/2019 12.1 NRBC/100 WBC 05/16/2019 0.0 NRBC x10^3 05/16/2019 <0.01 GRAN MAT (NEUT) % 05/16/2019 70.4 IMM GRAN % 05/16/2019 0.30 LYMPH % 05/16/2019 24.0 MONO % 05/16/2019 4.9 EOS % 05/16/2019 0.3 BASO % 05/16/2019 0.1 GRAN MAT x10^3(ANC) 05/16/2019 7.01 IMM GRAN x10^3 05/16/2019 0.03 LYMPH x10^3 05/16/2019 2.39 MONO x10^3 05/16/2019 0.49 EOS x10^3 05/16/2019 0.03 BASO x10^3 05/16/2019 <0.03 POCT U SP GRAV 05/16/2019 . POCT PH U 05/16/2019 . POCT U LEUK EST 05/16/2019 . POCT U NIT 05/16/2019 . POCT U PROT 05/16/2019 Trace POCT U GLU 05/16/2019 Neg POCT U KETONE 05/16/2019 . POCT U UROBILI 05/16/2019 . POCT U BILI 05/16/2019 . POCT U BLD 05/16/2019 . Syphilis IgG/IgM 05/16/2019 Non-reactive Radiology No new radiology. Allergies Emily has No Known Allergies. Medications Emily has a current medication list which includes the following prescription(s): ascorbic acid (vitamin c), ferrous sulfate, doxylamine- pyridoxine (vit b6), and pnv 67-iron ps-folate no.1-dha. Review of Systems Constitutional: Negative. HENT: Negative. Eyes: Negative. Respiratory: Negative. Breasts: Negative. Cardiovascular: Negative. Gastrointestinal: Negative. Genitourinary: Negative. Musculoskeletal: Negative. Skin: Negative. Neurological: Negative. Psychiatric/Behavioral: Negative. Endocrine: Endocrine negative BP 134/87 (BP Location: Right arm, Patient Position: Sitting, BP CUFF SIZE: Adult Medium) | Pulse 92 | Temp 37.7 C (99.9 F) (Oral) | Resp 16 | Ht 5' 5" (1.651 m) | Wt 212 lb 8 oz (96.4 kg) | LMP 11/10/2018 (Within Days) | BMI 35.36 kg/m Pregravid BMI: Could not be calculated Physical Exam PHYSICAL: General Exam: Neurological: Normal Abdomen: Normal gravid Extremities: Normal Pelvic Exam: Uterus: 37 Weeks Assessment/Plan Return to clinic in 1 weeks. Denies zika virus risk, signs and symptoms such as fever,rash,joint pain, conjunctivitis (red eyes),muscle pain, headaches; outside [place] travel to areas affected by zika, and FOB exposure to zika. Educated on use of mosquito repellent. Supervision of high risk , antepartum (primary encounter diagnosis) [facility] Comment: routine Plan: POCT URINALYSIS W SPECIFIC GRAVITY Susceptible to varicella (non-immune), currently Comment: no mgmt today Plan: address pp Obesity affecting in third trimester Comment: see bmi Plan: limit weight gain and sensible diet. This visit did not involve counseling and coordination that comprised more than 50% of the visit time. LINDA Vergara 07/26/2019 3:32 PM MACHINE OPERATOR documented in this encounter Plan of Treatment Date Type Specialty Care Team Description 08/02/2019 Routine Visit OB Satellites Steven Lord WHCNP [address], [place] [address] [phone] Name Type Priority Associated Diagnoses Date/Ti me GROUP B STREPTOCOCCUS BY LAB Routine Supervision of h igh risk 07/26/2019 3:37 PM PCR , antepartum BOW MACHINE OPERATOR GC & CHLAMYDIA AMPLIFIED LAB Routine Supervision of h igh risk 07/26/2019 3:37 PM ASSAY , antepartum BOW MACHINE OPERATOR CBC WITH DIFF LAB Routine Supervision of high risk 3:36 PM , antepartum BOW MACHINE OPERATOR CBC WITH DIFFERENTIAL LAB Routine Supervision of high risk 07/26/2019 3:36 PM , antepartum BOW MACHINE OPERATOR Health Maintenance Due Date Last Done Comments CHLAMYDIA SCREENING 12/18/2019 12/17/2018, 12/09/2017, 10/13/2017, Additional history exists PAP SMEAR 04/24/2020 Postponed from 2019 (Preg [...] 2-dose childhood series) 01/09 ( or ) DTaP,Tdap,and Td Vaccines 05/30/2029 05/30/2019, 10/13/2017 (3 - Td) MENINGOCOCCAL VACCINE Aged Out No longer eligible based on patient 's age to complete this topic PNEUMOCOCCAL 0-64 YEARS Aged Out No longe r eligible COMBINED SERIES based on patient 's age to complete this topic documented as of this encounter Procedures Procedure Name Priority Date/Time Associated Diagnosis Comme nts POCT URINALYSIS Routine 07/26/2019 3:46 PM Supervision of [facility] h Results for this BOW MACHINE OPERATOR risk , procedure ar e in antepartum the results section. documented in this encounter Results POCT URINALYSIS W SPECIFIC GRAVITY (07/26/2019 3:46 PM BOW MACHINE OPERATOR) Pathologist Sig nature POCT U SP GRAV . 1.005 - [...] Diagnoses Diagnosis Supervision of high risk , ante - Primary [facility] Susceptible to varicella (non-immune), c urrently Supervision of other high-risk Obesity affecting in third [facility] documented in this encounter Insurance Payer Benefit Plan / Subscriber ID Effective Dates Phone Addre ss Type Group [place] [place] [employer] [place] [employer] xxxxxxxxx 2019-Present Medicaid HEALTH PLAN - HEALTH MANAGED MEDICAID documented as of this encounter Advance Directives Name Relationship Healthcare Agent Relationship Co mmunication Julieth Espinosa Mother Primary healthcare agent
--- OUTSIDE RECORDS SUMMARY | 2019-10-14 14:13 | XMS REPORT | Summary of Care ---
:2000 Author Organization [facility] Address [address] [place] [address] Care Team Providers Name Role Phone Doctor Unassigned, Name Insurance Hmo Unavailable Naheed Lord [facility] Primary Care Provider Reason for Visit Reason Comments Care Encounter Details Date Type Department Care Team Description 08/03/2019 Routine [facility]- A[place]ijonathon, Super vision of high Visit Araseli Farfan HUMERA risk , [address] antepartum ([place], [place] ST [place]x) [phone] ALIZA A [phone] [place] [address] Allergies No Known Allergiesdocumented as of this encounter (statuses as of 08/03/2019) Medications Medication Sig Dispensed Refills Start Date [...] as of this encounter (statuses as of 08/03/2019) Active Problems Patient Care Coordination Note iol 6-15-18 at 7am Problem Noted Date Susceptible to varicella (non-immune), currently pregn ant 12/20/2018 Overview: Address pp Multiparity 12/17/2018 Supervision of high risk , antepartum 017 Obesity affecting 04/22/2017 Estimated Date of Delivery Comments Yes 08/17/2019 Based on last menstr ual period of 11/10/2018 (Within Days) documented as of this encounter (statuses as of 08/03/2019) Resolved Problems Problem Noted Date Resolved Date Contraceptive management 10/27/2017 12/17/2018 Overview: Declines tubal Nausea and vomiting during prior to 22 weeks 05/2012/17/2018 gestation Abnormal maternal glucose tolerance, antepartum 04/23/2017 12/17/2018 Overview: passed 3hr Susceptible to varicella (non-immune), currently 12/17/2018 documented as of this encounter (statuses as of 08/03/2019) Immunizations Name Administration Dates Next Due Tdap [...] Sign Reading Time Taken Comments Blood Pressure 116/75 08/03/2019 1:39 PM PODIATRY DOCTOR Pulse 116 08/03/2019 1:39 PM PODIATRY DOCTOR Temperature 37 C (98.6 F) 08/03/2019 1:39 PM PODIATRY DOCTOR Respiratory Rate 16 08/03/2019 1:39 PM PODIATRY DOCTOR Oxygen Saturation - - Inhaled Oxygen Concentration - - Weight 95.4 kg (210 lb 4 oz) 08/03/2019 1:39 PM PODIATRY DOCTOR Height 165.1 cm (5' 5") 08/03/2019 1:39 PM PODIATRY DOCTOR Body Mass Index 34.99 08/03/2019 1:39 PM PODIATRY DOCTOR documented in this encounter Progress Notes Theresa Lord, WHCNP - 08/03/2019 12:45 PM CST Chief complaint: Chief Complaint Patient presents with Care HPI CC: Follow Up Visit Emily Rahman is a 19 year old, , Black or female. Patient's last menstrual period was 11/10/2018 (within days). She is 38w0d with an intrauterine . Her estimated date [...] file Gets together: Not on file Attends sabianism service: Not on file Active member of [...] No new labs and Routine Visit on 07/26/2019 Component Date Value POCT U SP GRAV 07/26/2019 . POCT PH U 07/26/2019 . POCT U LEUK EST 07/26/2019 . POCT U NIT 07/26/2019 . POCT U PROT 07/26/2019 Trace POCT U GLU 07/26/2019 Neg POCT U KETONE 07/26/2019 . POCT U UROBILI 07/26/2019 . POCT U BILI 07/26/2019 . POCT U BLD 07/26/2019 . Group B Streptococcus by* 07/26/2019 Negative C. trachomatis Nucleic A* 07/26/2019 Negative N. gonorrhoeae Nucleic A* 07/26/2019 Negative WBC 07/26/2019 9.86 RBC 07/26/2019 4.85 HGB 07/26/2019 10.4* HCT 07/26/2019 35.9 MCV 07/26/2019 74.0* MCH 07/26/2019 21.4* MCHC 07/26/2019 29.0* RDW-SD 07/26/2019 40.7 RDW-CV 07/26/2019 15.4 PLT 07/26/2019 261 MPV 07/26/2019 12.9 NRBC/100 WBC 07/26/2019 0.0 NRBC x10^3 07/26/2019 <0.01 GRAN MAT (NEUT) % 07/26/2019 61.2 IMM GRAN % 07/26/2019 0.50 LYMPH % 07/26/2019 28.8 MONO % 07/26/2019 8.7 EOS % 07/26/2019 0.7 BASO % 07/26/2019 0.1 GRAN MAT x10^3(ANC) 07/26/2019 6.03 IMM GRAN x10^3 07/26/2019 0.05 LYMPH x10^3 07/26/2019 2.84 MONO x10^3 07/26/2019 0.86 EOS x10^3 07/26/2019 0.07 BASO x10^3 07/26/2019 <0.03 Routine Visit on 07/11/2019 Component Date Value [...] Negative. Psychiatric/Behavioral: Negative. Endocrine: Endocrine negative BP 116/75 (BP Location: Right arm, Patient Position: Sitting, BP CUFF SIZE: Adult Medium) | Pulse 116 | Temp 37 C (98.6 F) (Oral) | Resp 16 | Ht 5' 5" (1.651 m) | Wt 210 lb 4 oz (95.4 kg) | LMP 11/10/2018 (Within Days) | BMI 34.99 kg/m Pregravid BMI: Could not be calculated Physical Exam PHYSICAL: General Exam: Neurological: Normal Abdomen: Normal gravid Extremities: Normal Pelvic Exam: Uterus: 38 Weeks Assessment/Plan Return to clinic in 1 weeks. IOL schedule for 20 at 1930. Patient desires induction all paperwork given. Induction risk and benefits discussed. Patient verbalized understanding. Labor warning given, patient verbalized understanding Denies zika virus risk, signs and symptoms such as fever,rash,joint pain, conjunctivitis (red eyes),muscle pain, headaches; outside [place] travel to areas affected by zika, and FOB exposure to zika. Educated on use of mosquito repellent. Supervision of high risk , antepartum Comment: routine Plan: POCT URINALYSIS W SPECIFIC GRAVITY This visit did not involve counseling and coordination that comprised more than 50% of the visit time. LINDA Vergara 08/03/2019 1:59 PM ATRY DOCTOR documented in this encounter Plan of Treatment Date Type Specialty Care Team Description 08/08/2019 Routine Visit OB Satellites Steven Lord WHCNP [address], [place] [address] [phone] Health Maintenance Due Date Last Done Comments WELL CARE VISIT: 06-2501/10/2020 2019 YEARS (yearly) PAP SMEAR 04/24/2020 Postponed [...] Associated Diagnosis Comme nts POCT URINALYSIS Routine 08/03/2019 1:42 PM Supervision of [facility] Results for this PODIATRY DOCTOR risk , procedure ar e in antepartum the results section. documented in this encounter Results POCT URINALYSIS W SPECIFIC GRAVITY (08/03/2019 1:42 PM PODIATRY DOCTOR) Pathologist Sig nature POCT U SP GRAV . 1.005 - 1.025 mg/dl POCT PH U . 5 - 8 mg/dl POCT U LEUK EST . Negative - Negative POCT U NIT . Negative - Negative POCT U PROT 1+ Negative - Negative POCT U GLU Neg [...] of high risk , ante - Primary documented in this encounter Insurance Payer Benefit Plan / Subscriber ID Effective Dates Phone Addre ss Type Group [place] [facility] [place] [facility] xxxxxxxxx 2019-Present Medicaid HEALTH PLAN - HEALTH MANAGED MEDICAID documented as of this encounter Advance Directives Name Relationship Healthcare Agent Relationship Co mmunication Julieth Espinosa Mother Primary healthcare agent
--- OUTSIDE RECORDS SUMMARY | 2019-10-14 14:13 | XMS REPORT | Summary of Care ---
:2000 Author Organization [facility] Address [address] [place] [address] Care Team Providers Name Role Phone Doctor Unassigned, Name Insurance Hmo Unavailable Naheed Lord [facility] Primary Care Provider Reason for Visit Reason Comments Care Encounter Details Date Type Department Care Team Description 08/03/2019 Routine [facility] Health [facility]- Akinsijonathon, Super vision of high Visit Araseli Farfan HUMERA risk , [address] antepartum (Primary [place], [place]) [phone] ALIZA A [phone] [place] [address] Allergies No Known Allergiesdocumented as [...] Comments Blood Pressure 116/75 08/03/2019 1:39 PM ORTHOPEDIC SPECIALIST Pulse 116 08/03/2019 1:39 PM ORTHOPEDIC SPECIALIST Temperature 37 C (98.6 F) 08/03/2019 1:39 PM ORTHOPEDIC SPECIALIST Respiratory Rate 16 08/03/2019 1:39 PM ORTHOPEDIC SPECIALIST Oxygen Saturation - - Inhaled Oxygen Concentration - - Weight 95.4 kg (210 lb 4 oz) 08/03/2019 1:39 PM ORTHOPEDIC SPECIALIST Height 165.1 cm (5' 5") 08/03/2019 1:39 PM ORTHOPEDIC SPECIALIST Body Mass Index 34.99 08/03/2019 1:39 PM ORTHOPEDIC SPECIALIST documented in this encounter Progress Notes Theresa [...] visit time. LINDA Vergara 08/03/2019 1:59 PM OPEDIC SPECIALIST documented in this encounter Plan of Treatment Date Type Specialty Care Team Description 08/08/2019 Routine Visit OB Satellites Steven Lord WHCNP [address] [place], [place] [address] [phone] Health Maintenance Due Date Last Done Comments WELL CARE VISIT: 06-2501/09/2010 YEARS (yearly) PAP SMEAR 04/24/2020 Postponed from [...] URINALYSIS Routine 08/03/2019 1:42 PM Supervision of [facility] Results for this ORTHOPEDIC SPECIALIST risk , procedure ar e in antepartum the results section. documented in this encounter Results POCT URINALYSIS W SPECIFIC GRAVITY (08/03/2019 1:42 PM ORTHOPEDIC SPECIALIST) Pathologist Sig nature POCT U SP GRAV [...]
--- OUTSIDE RECORDS SUMMARY | 2019-10-14 14:15 | XMS REPORT | Summary of Care ---
:2000 Author Organization [facility] Address [address] [place] [id number] Care Team Providers Name Role Phone Doctor Unassigned, Name Insurance Hmo Unavailable [facility] Provider Reason for Referral (Routine) Status Reason Specialty Diagnoses / Referred By Referred To Procedures Contact Contact New Request OB Satellites Diagnoses Susceptible to varicella (non-immune), currently Obesity (BMI 30-39.9) 39 weeks gestation of (spontaneous vaginal delivery) Single live History of asthma Supervision of high risk , antepartum Monique Friedman FNP Multiparity [address] Procedures DISCHARGE FOLLOW-UP: [facility] [address] Reason for Visit Auth/Cert Status Reason Specialty Diagnoses / Referred By Contact Refe rred To Contact Procedures Obstetrics Diagnoses Labor J3c [address] [place] [phone] Phone: Fax: Encounter Details Date Type Department Care Team Description 08/10/2019 - Hospital Encounter Mother Baby Unit Sabrina Vickers (spontaneous 08/13/2019 (J7C) MD Shruti vaginal delivery) [address] [place] [address] [id number] [place] [address] [id number] Allergies No Known Allergiesdocumented as of this encounter (statuses as of 08/13/2019) Medications Medication Sig Dispensed Refills Start Date End Date Status docusate calcium Take 1 capsule 60 capsule 1 08/12/2019 Active 240 mg by mouth once capsuleIndications daily as : 39 weeks needed for gestation of Constipation. , (spontaneous vaginal delivery), Multiparity ibuprofen 600 mg Take 1 tablet 60 tablet 1 08/12/2019 Active tabletIndications: by mouth every 39 weeks gestation 6 (six) hours of , as needed (spontaneous (Pain). Take vaginal delivery), with food or Multiparity milk. Iron Fum & Take 1 capsule 30 capsule 2 08/12/2019 Ac tive P-FA-Vit B & C by mouth No.9 (INTEGRA daily. PLUS) 125 mg iron- 1 mg CapIndications: 39 weeks gestation of , (spontaneous vaginal delivery), Multiparity PNV 67-iron Take 1 Each by 30 capsule 11 04/22/2017 08/12/2019 Discontinued ps-folate no.1-dha mouth daily. (VITAFOL ULTRA) 29 mg iron- 1 mg-200 mg CapIndications: Missed menses doxylamine-pyridox Take 2 tablets 120 tablet 1 05/20/20170 01/2020 Discontinued ine, vit B6, by mouth at (DICLEGIS) 10-10 bedtime. mg per tabletIndications: Nausea and vomiting during prior to 22 weeks gestation ferrous sulfate Take 1 tablet 60 tablet 2 12/10/2017 0 Discontinued 325 mg (65 mg by mouth 2 iron) (two) times tabletIndications: daily. Anemia of mother in , antepartum ascorbic acid, Take 1 tablet 90 tablet 2 12/10/2017 08/12/2019 Discontinued vitamin C, 500 mg by mouth 3 tabletIndications: (three) times Anemia of mother daily. in , antepartum documented as of this encounter (statuses as of 08/13/2019) Active Problems Patient Care Coordination Note iol 12-18-17 at 7am Problem Noted Date (spontaneous vaginal delivery) 08/12/2019 Single live 08/12/2019 History of asthma 08/12/2019 Gestational hypertension 08/11/2019 Obesity (BMI 30-39.9) 08/10/2019 39 weeks gestation of 08/10/2019 Susceptible to varicella (non-immune), currently pregn ant 12/20/2018 Overview: Address pp Comments Yes documented as of this encounter (statuses as of 08/13/2019) Resolved Problems Problem Noted Date Resolved Date Multiparity 12/17/2018 08/13/2019 Contraceptive management 10/27/2017 12/17/2018 Overview: Declines tubal Nausea and vomiting during prior to 22 weeks 05/2012/17/2018 gestation Abnormal maternal glucose tolerance, antepartum 04/23/2017 12/17/2018 Overview: passed 3hr Susceptible to varicella (non-immune), currently 12/17/2018 Supervision of high risk , antepartum 04/22/2017 08/13/2019 Obesity affecting 04/22/2017 08/13/2019 documented as of this encounter (statuses as of 08/13/2019) Immunizations Name Administration Dates Next Due Tdap 05/30/2019, 10/13/2017 Varicella (varivax)(chicken pox) 08/13/2019 () documented as of this encounter Social History Tobacco Use Types Packs/Day Years Used Date Never Smoker Smokeless Tobacco: Never Used Alcohol Use Drinks/Week oz/Week Comments No last sexual inte rcourse 12/09/2018 Comments Yes Sex Assigned at Date Recorded Not on file Job Start Date Occupation Industry Not on file Not on file Not on file Travel History Travel Start Travel End No recent travel history available. documented as of this encounter Last Filed Vital Signs Vital Sign Reading Time Taken Comments Blood Pressure 119/76 08/13/2019 8:00 AM COPY EDITOR Pulse 74 08/13/2019 8:00 AM COPY EDITOR Temperature 37 C (98.6 F) 08/13/2019 8:00 AM COPY EDITOR Respiratory Rate 18 08/13/2019 8:00 AM COPY EDITOR Oxygen Saturation 99% 08/13/2019 8:00 AM COPY EDITOR Inhaled Oxygen Concentration - - Weight 94.3 kg (208 lb) 08/10/2019 8:00 PM COPY EDITOR Height 162 cm (5' 3.78") 08/10/2019 8:00 PM COPY EDITOR Body Mass Index 35.95 08/10/2019 8:00 PM COPY EDITOR documented in this encounter Discharge Summaries Josie Torres CNM - 08/13/2019 8:30 AM CST DISCHARGE SUMMARY - VAGINAL DELIVERY Date of Service: 08/13/2019 ADMIT DATE: 08/10/2019 DISCHARGE DATE: 08/13/2019 ATTENDING MD: Dr Sabrina Vickers ATTENDING MD AT DISCHARGE: Sabrina Vickers MD PHYSICIAN/CNM: Josie Torres CNM PCP: Theresa Lord REASON FOR ADMISSION Admit For: IOL at term For: routine care FINAL DIAGNOSIS: (the reason, after study, for admitting the patient to the hospital) S/P Vaginal Delivery SECONDARY DIAGNOSIS: (any diagnosis that, on this admission, required clinical evaluation, therapeutic treatment, diagnostic procedures, extended hospital stay, or additional nursing care/monitoring): Principal Problem: (spontaneous vaginal delivery) (08/12/2019) POA: No Assessment: 39 week gestation Plan: discharge home today as held yesterday due to nutritional needs of Active Problems: Susceptible to varicella (non-immune), currently (12/20/2018) POA: Yes Assessment: Plan: To receive varicella vaccine prior to discharge. Second dose to be given 4-6 weeks and to avoid for 3 months after last dose. Obesity (BMI 30-39.9) (08/10/2019) POA: Yes Assessment: Plan: address in clinic and educate on diet and exercise 39 weeks gestation of (08/10/2019) POA: Yes Assessment: Plan: delivered Gestational hypertension (08/11/2019) POA: No Assessment: asymptomatic with normal BP Plan: reviewed ER precautions Monitor BP at home RTC 1 week for BP check Single live (08/12/2019) POA: No Assessment: Plan: care by pedi History of asthma (08/12/2019) POA: Yes Assessment: asymptomatic Plan: inhaler as needed PRINCIPAL PROCEDURE: Cephalic vaginal delivery ADDITIONAL PROCEDURES: epidural anesthesia Electronic monitor SUBJECTIVE Patient has no complaints. Patient denies SOB, vertigo, BAJWA, blurred vision, epigastric pain or palpitations. Patient reports voiding without difficulty with good urine output. Patient reports ambulating unassisted without difficulty. Tolerating diet, passing flatus. Breast/bottle feeding. No evidence of depression. Patient desires discharge home today. Condition at discharge was good. SIGNIFICANT LAB/X-RAYS: HCT (%) Date Value 08/12/2019 35.5 (L) HGB (g/dL) Date Value 08/12/2019 10.3 (L) 08/11/2019 10.8 (L) Rubella: immune Type and Screen: O and RH postive DIET: Regular diet ACTIVITY: as tolerated, no strenuous activity and no heavy lifting PHYSICAL EXAM General: well-developed, well-nourished HEENT: pupils equal, round, reactive to light; extraocular movements intact; oropharynx clear; moistmucous membranes Neck: supple, no lymphadenopathy, no bruits, no JVD Lungs: clear to auscultation bilaterally Cardiology: S1, S2 normal; no murmurs, rubs or gallops Abdomen: guarding - no tenderness - normal : fundus firm with normal lochia, perineum healing Extremities: no clubbing, cyanosis, or edema Skin: no rashes Neuro: alert and oriented x 3 DISCHARGE MEDICATIONS: Current Discharge Medication List START taking these medications Details docusate calcium (SURFAK) 240 mg Take 240 mg by mouth once daily as needed for Constipation. Qty: 60 capsule, Refills: 1 Start date: 08/12/2019 Associated Diagnoses: 39 weeks gestation of ; (spontaneous vaginal delivery); Multiparity ibuprofen (IBU) 600 mg Take 600 mg by mouth every 6 (six) hours as needed (Pain). Take with food or milk. Qty: 60 tablet, Refills: 1 Start date: 08/12/2019 Associated Diagnoses: 39 weeks gestation of ; (spontaneous vaginal delivery); Multiparity Iron Fum & P-FA-Vit B & C No.9 (INTEGRA PLUS) 1 capsule Take 1 capsule by mouth daily. Qty: 30 capsule, Refills: 2 Start date: 08/12/2019 Associated Diagnoses: 39 weeks gestation of ; (spontaneous vaginal delivery); Multiparity STOP taking these medications ascorbic acid (vitamin C) (VITAMIN C) 500 mg Comments: Reason for Stopping: ferrous sulfate 325 mg Comments: Reason for Stopping: doxylamine-pyridoxine (vit B6) (DICLEGIS) 2 tablets Comments: Reason for Stopping: PNV 67-iron ps-folate no.1-dha (VITAFOL ULTRA) 1 Each Comments: Reason for Stopping: WOUND CARE: routine pericare DISCHARGE: Discharged: Home INSTRUCTIONS Routine instructions reviewed with patient. Precautions re: bleed/injury, depression, infection & DVT's reviewed. She was instructed to return to ER if Temp greater that 100.4 F, BAJWA unresolved with pain medications, visual disturbances including double or blurry vision, seeing spots, upper ABD pain or vaginal bleeding greater than 1 pad per hour. Pelvicrest for 6 weeks and no heavy lifting. FOLLOW-UP APPOINTMENT: With [facility] in 1 week for BP check and 3 week(s) for routine visit. Josie Torres APRN CNM EDITOR Associated attestation - Sabrina Vickers MD - 08/13/2019 2:15 PM CSTS/P . Patient was evaluated by Josie Torres CNM before discharge home. I personally participated in the evaluation of the patient and agree with the plan as written. Please see Ms. oTrres's note for additional details.Monique Friedman FNP - 08/12/2019 7:37 AM CST DISCHARGE SUMMARY - VAGINAL DELIVERY Date of Service: 08/12/2019 ADMIT DATE: 08/10/2019 DISCHARGE DATE: 08/12/2019 ATTENDING MD: Sabrina Vickers MD ATTENDING MD AT DISCHARGE: Bri Galdamez MD, CNM/PEANUT SORTER: NATI Gilbert PCP: Theresa Lord REASON FOR ADMISSION Admit For: IOL For: care for FINAL DIAGNOSIS: (the reason, after study, for admitting the patient to the hospital) S/P Vaginal Delivery SECONDARY DIAGNOSIS: (any diagnosis that, on this admission, required clinical evaluation, therapeutic treatment, diagnostic procedures, extended hospital stay, or additional nursing care/monitoring): GHTN Principal Problem: (spontaneous vaginal delivery) (08/12/2019) POA: No Assessment: Delivered Plan: Routine course Active Problems: 39 weeks gestation of (08/10/2019) POA: Yes Single live (08/12/2019) POA: No Assessment: 2660g with 9/9 Apgars Plan: Infant in care of pediatricians Susceptible to varicella (non-immune), currently (12/20/2018) POA: Yes Assessment: Varicella non-immune Plan: Pt aware she needs the varicella vaccine prior to d/c home and # 2 vaccine at 4-6wks pp. Pt also aware to avoid for 3 months post vaccine. Obesity (BMI 30-39.9) (08/10/2019) POA: Yes Assessment: see BMI Plan: advised to avoid excessive exertion during immediate 6 weeks PP and encouraged healthy dietarymodification. Gestational hypertension (08/11/2019) POA: No Assessment: tox labs negative, Pr/Cr ration of 0.1. Pt r/i for GHTN PP BP readings ranging from 110's-130's/ 80's-90's, Discussed signs and symptoms of PIH , pt is asymptomatic. Plan: Keep monitoring and D/C home today w/ 1 week F/U on BP recheck at the clinic. Strong ED warnings given History of asthma (08/12/2019) POA: Yes Assessment: no recent hospitalization or hx of intubation Plan: Albuterol PRN, ED warnings given PRINCIPAL PROCEDURE: Cephalic vaginal delivery ADDITIONAL PROCEDURES: Past Surgical History: Procedure Laterality Date CONSULT INTERVENTIONAL RADIOLOGY on Right gluteus TONSILLECTOMY 2004 [facility] SIGNIFICANT LAB/X-RAYS: HCT (%) Date Value 08/12/2019 35.5 (L) HGB (g/dL) Date Value 08/12/2019 10.3 (L) 08/11/2019 10.8 (L) Rubella: immune Varicella: not immune Type and Screen: O and RH postive S: Patient has no complaints. Patient denies sob, vertigo, headache, blurred vision, epigastric pain orpalpitations. Patient reports voiding without difficulty with good urine output. Patient reports ambulating unassisted without difficulty. Tolerating diet, passing flatus. Breast/bottlefeeding. Happy with new baby.No evidence of depression. Patient desires discharge home today. Contraception: Nothing O: General: Alert and oriented. No apparent distress Affect appropriate Heart: regular rate and rhythm. Lungs: good inspiratory effort to inspections, lungs clear to auscultation bilaterally. Breast: soft Abdomen: soft non-tender. Fundus: firm at umbilicus Perineum: intact, no edema, hematoma or abcess Lochia: scant rubra, no clots Extremities: no edema bilaterally. No calf tenderness BP: (93-151)/(62-99) Temp: [36.8 C (98.3 F)-37.9 C (100.2 F)] Temp source: Oral (08/12 0400) Pulse: [76-115] Resp: [16-18] SpO2: [95 %-100 %] Height: -- Weight: -- BMI (calculated): -- P: Routine instructions reviewed w/ pt. Precautions re: bleed/injury, depression, infection & DVT's reviewed. She was instructed to return to ER if Temp greater than 100.4F, headache unresolved with pain medications, visual disturbances including double orblurry vision, seeing spots, upper abdominal pain, or vaginal bleeding greater than 1 pad per hour. Pelvic rest 6 weeks, and no heavy lifting. DIET: Regular diet ACTIVITY: as tolerated, no strenuous activity and no heavy lifting DISCHARGE MEDICATIONS: Current Discharge Medication List START taking these medications Details docusate calcium (SURFAK) 240 mg Take 240 mg by mouth once daily as needed for Constipation. Qty: 60 capsule, Refills: 1 Start date: 08/12/2019 Associated Diagnoses: 39 weeks gestation of ; (spontaneous vaginal delivery); Multiparity ibuprofen (IBU) 600 mg Take 600 mg by mouth every 6 (six) hours as needed (Pain). Take with food or milk. Qty: 60 tablet, Refills: 1 Start date: 08/12/2019 Associated Diagnoses: 39 weeks gestation of ; (spontaneous vaginal delivery); Multiparity Iron Fum & P-FA-Vit B & C No.9 (INTEGRA PLUS) 1 capsule Take 1 capsule by mouth daily. Qty: 30 capsule, Refills: 2 Start date: 08/12/2019 Associated Diagnoses: 39 weeks gestation of ; (spontaneous vaginal delivery); Multiparity STOP taking these medications ascorbic acid (vitamin C) (VITAMIN C) 500 mg Comments: Reason for Stopping: ferrous sulfate 325 mg Comments: Reason for Stopping: doxylamine-pyridoxine (vit B6) (DICLEGIS) 2 tablets Comments: Reason for Stopping: PNV 67-iron ps-folate no.1-dha (VITAFOL ULTRA) 1 Each Comments: Reason for Stopping: WOUND CARE: .Encouraged appropriate pericare DISCHARGE: Discharged: Home CONDITION AT TIME OF DISCHARGE: Stable FOLLOW-UP APPOINTMENT: With [facility] in 1 week for BP check and in 3 week(s) PP visit. NATI Gilbert EDITOR Associated attestation - Bri Galdamez MD - 08/13/2019 8:01 AM CSTAgree with CNM's note and plan of management.documented in this encounter Discharge Instructions Margaret Frederick RN - 08/13/2019Multidisciplinary Discharge Instructions (may include diet, dressing changes, activity limits, written materials given to patient: DIET: Eat a well balanced diet; drink 6-8 glasses of fluids daily; eat fruits and green, leafy vegetables. DAILY ACTIVITIES: 1. As much as you feel able to do. Rest when you are tired. 2. Limitations: Specify; No heavy lifting other than your baby for 4 weeks if you had surgery. TREATMENT AT HOME 1. Use a well-fitting bra to prevent breast engorgement 2. Resume intercourse as instructed by your physician. 3. Do not use douches or tampons for four weeks. 4. To help prevent urinary tract infection; after each urination and bowel movement, wipe and dry from front to back and change nathaniel pad. 5. Follow discharge instructions regarding baby care. 6. Follow family planning instructions. IMMEDIATE TREATMENT - Call Clinic or Your Physician 1. Increase in pain and tenderness of uterus. 2. Increased vaginal bleeding (bright red blood which soaks 2 pads in 1 hour or pass large clots). 3. Foul smelling vaginal discharge. 4. Burning in the tube that empties the urine from the bladder. 5. Painful breast engorgement or cracked nipples. 6. Pain, discharges, or gaping incision. 7. Temperature greater than 38.0C or 100.4F 8. Pain and tenderness of calf or thigh muscles. 9. No bowel movements in 4 days. For Problems or Questions Call: OB Clinic Family Planning [phone] or Emergency: Go to the closest emergency room or call 911 documented in this encounter Progress Notes Osiris Maldonado MD - 08/11/2019 7:39 AM CST PROGRESS NOTE GHTN - based on mild-ranging BP and P/C 0.1 - BP 110s-130s/60-80s - asymptomatic 08/10/2019 22:05 HGB 10.8 (L) HCT 36.6 PLT x10^3 247 CREATININE 0.50 URIC ACID 4.1 P/C ratio urine 0.1 ALTv 10 AST(SGOT) 22 LDH 433 Osiris Maldonado MD iJoel Palma MD - 08/11/2019 7:21 AM CSTIntrapartum Progress Note 08/11/2019 7:21 AM Subjective: Patient has no complaints Objective: Vitals last 24 hours: Temp: [36.8 C (98.2 F)-37 C (98.6 F)] 36.8 C (98.2 F) Pulse: [68-116] 89 Resp: [18-19] 18 BP: (113-145)/(64-93) 128/82 Intake/Output : No intake/output data recorded. I/O last 3 completed shifts: In: 1065 [I.V.:1065] Out: - Assessment Active movement: Yes Mode: EFM Uterine Activity: Mode: [place] Contractions (number / 10 minute): 2 Contraction duration (seconds): 50-60 Resting tone: Soft;Palpation Membrane Status Membrane status: Intact Cervical Exam % / -3 Assessment/Plan: Emily Rahman is a 19 year old at 39w1d OB Assessment: IOL, GHTN OB Plan: FB@2220, Pit@2230, tox labs Emily Rahman is a 19 year old at 39w0d by d/u(10) who presents for IOL. IOL - SVE: 07/30/-3 - Contractions (number / 10 minute): placed - FB @ 2230, pit @2330 Anemia of -H/H 10.4/35.9 on 07/26/2019 -CBC 10.8/36.6 Obesity affecting -Body mass index is 35.86 kg/m. -The patient is asked to make an attempt to improve diet and exercise patterns to aid in medical management of this problem. Asthma -Diagnosed in childhood -No hospitalizations/ intubations -Last used emergency inhaler 8-9 months ago Antepartum course reviewed - 1 h 115, 3h 109 , sero negative, Rimmune, VZVnot immune, O positive/IAT negative, GBS negative, NoPap - 19 yrs old - H/H, plt: 10.4 / 35.9, 261 on 07/26/2019 - [facility] Fetus - Presentation on admission: vertex - anterior placenta - EFW: 6lbs 7oz by 2U/S - FHT reactive baseline rate 150's - Normal anatomy scan Joel Mccurdy MD EDITOR Associated attestation - Bri Galdamez MD - 08/11/2019 1:23 PM CSTI personally examined the patient on 08/11/[address] Hayes's resident note as written. I actively participated in the decision-making process. Please see the resident's note for additional details. documented in this encounter Plan of Treatment Date Type Specialty Care Team Description 08/18/2019 Nurse Visit OB Satellites Visit, [facility] Nurse 09/01/2019 Routine Visit OB Satellites Steven Lord, BENP [address], [place] [address] [phone] Health Maintenance Due Date Last Done Comments [...] encounter Procedures Procedure Name Priority Date/Time Associated Comments Diagnosis CBC WITH DIFFERENTIAL Routine 08/12/2019 3:42 Re sults for this AM COPY EDITOR procedure are i n the results section. CBC WITH DIFFERENTIAL Routine 08/12/2019 3:42 Re sults for this AM COPY EDITOR procedure are i n the results section. VENOUS CORD GAS RADHA 08/11/2019 5:27 Results for this PM COPY EDITOR procedure are i n the results section. ARTERIAL CORD GAS RADHA 08/11/2019 5:27 Result s for this PM COPY EDITOR procedure are i n the results section. PROTEIN CREAT RATIO STAT 08/11/2019 6:19 Resu lts for this URINE RANDOM AM COPY EDITOR procedure are i n the results section. URINALYSIS STAT 08/11/2019 6:19 Results for this AM COPY EDITOR procedure are i n the results section. CBC WITH DIFFERENTIAL STAT 08/11/2019 1:31 Re sults for this AM COPY EDITOR procedure are i n the results section. CBC WITH DIFFERENTIAL STAT 08/11/2019 1:31 Re sults for this AM COPY EDITOR procedure are i n the results section. LACTATE DEHYDROGENASE STAT 08/11/2019 1:31 Re sults for this AM COPY EDITOR procedure are i n the results section. GALV ONLY - SYPHILIS RADHA 08/10/2019 10:05 Res ults for this IGG/IGM PM COPY EDITOR procedure are i n the results section. HEPATITIS B SURFACE RADHA 08/10/2019 10:05 Resu lts for this ANTIGEN PM COPY EDITOR procedure are i n the results section. URIC ACID STAT Add-On 08/10/2019 10:05 Results for this PM COPY EDITOR procedure are i n the results section. ALANINE AMINO STAT Add-On 08/10/2019 10:05 Results fo r this TRANSFERASE(SGPT PM COPY EDITOR procedure a re in the results section. CREATININE STAT Add-On 08/10/2019 10:05 Results for this PM COPY EDITOR procedure are i n the results section. SGOT (ASPARTATE AMINO STAT Add-On 08/10/2019 10:05 Re sults for this TRANSFER) PM COPY EDITOR procedure are i n the results section. RHO (D) IMMUNE Routine 08/10/2019 10:04 Results f or this GLOBULIN PM COPY EDITOR procedure are i n the results section. HB ABO GROUPING RADHA 08/10/2019 10:04 Results for this PM COPY EDITOR procedure are i n the results section. documented in this encounter Results CBC WITH DIFFERENTIAL (08/12/2019 3:42 AM COPY EDITOR) Pathologist Sig nature WBC 14.22 (H) 4.30 - 11.10 [facility] 10*3/L SERVICES RBC 4.80 3.93 - 5.25 [facility] 10*6/L SERVICES HGB 10.3 (L) 11.6 - 15.0 [facility] g/dL SERVICES HCT 35.5 (L) 35.7 - 45.2 % [facility] MCV 74.0 (L) 80.6 - 95.5 fL [facility] MCH 21.5 (L) 25.9 - 32.8 pg [facility] MCHC 29.0 (L) 31.6 - 35.1 [facility] g/dL SERVICES RDW-SD 44.3 39.0 - 49.9 fL [facility] RDW-CV 16.9 (H) 12.0 - 15.5 % [facility] PLT 206 166 - 358 [facility] 10*3/L SERVICES MPV 12.1 9.5 - 12.9 fL [facility] NRBC/100 WBC 0.0 0.0 - 10.0 /100 [facility] WBCs SERVICES NRBC x10^3 <0.01 10*3/L [facility] GRAN MAT (NEUT) % 70.9 % [facility] IMM GRAN % 0.50 % [facility] LYMPH % 21.0 % [facility] MONO % 7.2 % [facility] EOS % 0.2 % [facility] BASO % 0.2 % [facility] GRAN MAT x10^3(ANC) 10.09 (H) 1.88 - 7.09 [facility] 10*3/uL SERVICES IMM GRAN x10^3 0.07 (H) 0.00 - 0.06 [facility] 10*3/uL SERVICES LYMPH x10^3 2.98 1.32 - 3.29 [facility] 10*3/uL SERVICES MONO x10^3 1.02 (H) 0.33 - 0.92 [facility] 10*3/uL SERVICES EOS x10^3 0.03 0.03 - 0.39 [facility] 10*3/uL SERVICES BASO x10^3 0.03 0.01 - 0.07 [facility] 10*3/uL SERVICES Specimen Blood - HAND, LEFT Performing Organization Address City/[facility]/Zipcode Phone Number [facility] CLIA: [id number], [address] [place] [address] [address] [facility] ARTERIAL CORD GAS (08/11/2019 5:27 PM COPY EDITOR) Pathologist Sig nature BASE EXCESS, CORD -4.9 mEq/L [facility] AC PH, CORD (BEAKER) 7.28 7.18 - 7.38 [facility] PC02, CORD 49 32 - 66 mmHg [facility] PO2, CORD 29 10 - 30 mmHg [facility] BICARBONATE, CORD 22 17 - 27 mEq/L [facility] Specimen Blood - CORD Performing Organization Address [facility] Phone Number [facility] CLIA: [id number], [address] [place] [address] [address] [facility] VENOUS CORD GAS (08/11/2019 5:27 PM COPY EDITOR) Pathologist Sig nature VENOUS BASE EXCESS, -2.4 mEq/L [facility] CORD SERVICES VENOUS PH, CORD 7.37 7.25 - 7.45 [facility] VENOUS PC02, CORD 41 27 - 49 mmHg [facility] VENOUS PO2, CORD 38 17 - 41 mmHg [facility] VENOUS BICARBONATE, 23 12 - 29 mEq/L [facility] CORD SERVICES Specimen Blood - CORD Performing Organization Address City/[facility] Cent[facility]ode Phone Number [facility] CLIA: [id number], [address] [place] [address] 555 [facility] Urinalysis (08/11/2019 6:19 AM COPY EDITOR) APPEARANCE Hazy (A) Clear [facility] COLOR Yellow Yellow [facility] PH 6.0 4.8 - 8.0 [facility] SP GRAVITY 1.018 1.003 - 1.030 [facility] GLU U QUAL Normal Normal [facility] BLOOD NegativeComment: Negative [facility] INTERFERENCE FROM SERVICES ASCORBIC ACID MAY CAUSE FALSE NEGATIVE RESULT KETONES 5 mg/dL (A) Negative [facility] PROTEIN 30 mg/dL (A) Negative [facility] UROBILIN 4.0 mg/dL (A) Normal [facility] BILIRUBIN Negative Negative [facility] NITRITE Negative Negative [facility] LEUK REFUGIO 25/uL (A) Negative [facility] RBC/HPF 2 0 - 3 HPF [facility] WBC/HPF 7 (H) 0 - 5 HPF [facility] BACTERIA Moderate (A) Negative [facility] MUCOUS Marked (A) Negative LPF [facility] SQ EPITH 9 (H) <=2 HPF [facility] Specimen Urine - URINE, CLEAN CATCH Performing Organization Address City/[facility] Centercooh Phone Number [facility] CLIA: [id number], [address] [place] [address] 555 [facility] Protein CREAT Ratio Urine Random (08/11/2019 6:19 AM COPY EDITOR) Pathologist Sig nature T. PROT U 12 mg/dL [facility] CREAT U 215.7 mg/dL [facility] Protein/Creatinine 0.1 0.0 - 2.0 [facility] SERVIC ES Ratio Urine Specimen Urine - URINE, CLEAN CATCH Performing Organization Address [facility] Centercooh Phone Number [facility] CLIA: [id number], [address] [place] [address] 555 [facility] CBC WITH DIFFERENTIAL (08/11/2019 1:31 AM COPY EDITOR) Pathologist Sig nature WBC 7.61 4.30 - 11.10 [facility] 10*3/L SERVICES RBC 4.99 3.93 - 5.25 [facility] 10*6/L SERVICES HGB 10.8 (L) 11.6 - 15.0 [facility] g/dL SERVICES HCT 36.6 35.7 - 45.2 % [facility] MCV 73.3 (L) 80.6 - 95.5 fL [facility] MCH 21.6 (L) 25.9 - 32.8 pg [facility] MCHC 29.5 (L) 31.6 - 35.1 [facility] g/dL SERVICES RDW-SD 43.4 39.0 - 49.9 fL [facility] RDW-CV 17.0 (H) 12.0 - 15.5 % [facility] PLT 247 166 - 358 [facility] 10*3/L SERVICES MPV 11.5 9.5 - 12.9 fL [facility] NRBC/100 WBC 0.0 0.0 - 10.0 /100 [facility] WBCs SERVICES NRBC x10^3 <0.01 10*3/L [facility] GRAN MAT (NEUT) % 50.4 % [facility] IMM GRAN % 0.30 % [facility] LYMPH % 39.9 % [facility] MONO % 8.3 % [facility] EOS % 0.8 % [facility] BASO % 0.3 % [facility] GRAN MAT x10^3(ANC) 3.84 1.88 - 7.09 [facility] 10*3/uL SERVICES IMM GRAN x10^3 <0.03 0.00 - 0.06 [facility] 10*3/uL SERVICES LYMPH x10^3 3.04 1.32 - 3.29 [facility] 10*3/uL SERVICES MONO x10^3 0.63 0.33 - 0.92 [facility] 10*3/uL SERVICES EOS x10^3 0.06 0.03 - 0.39 [facility] 10*3/uL SERVICES BASO x10^3 <0.03 0.01 - 0.07 [facility] 10*3/uL SERVICES Specimen Blood - ARM, LEFT Performing Organization Address City/State/Zipcode Phone Number [facility] CLIA: [id number], [address] [place] [address] 555 [facility] Lactate Dehydrogenase (08/11/2019 1:31 AM COPY EDITOR) Pathologist Sig nature LDH 433 300 - 600 U/L [facility] Specimen Blood - ARM, LEFT Performing Organization Address City/State/Zipcode Phone Number [facility] CLIA: [id number], [address] [place] [address] 555 [facility] Alanine Amino Transferase (SGPT) (08/10/2019 10:05 PM COPY EDITOR) Pathologist Sig [facility] ALTv 10 5 - 35 U/L [facility] Specimen Blood - ARM, RIGHT Performing Organization Address City/[facility]/Zipcode Phone Number [facility] CLIA: [id number], [address] [place] [address] 555 [facility] SGOT (Asparate Amino Transfer) (08/10/2019 10:05 PM COPY EDITOR) Pathologist Sig [facility] AST(SGOT) 22 13 - 40 U/L [facility] SERVICES Specimen Blood - ARM, RIGHT Performing Organization Address [facility] Centercode Phone Number [facility] CLIA: [id number], [address] [place] [address] 555 [facility] Serum Creatinine (08/10/2019 10:05 PM COPY EDITOR) Pathologist [facility] CREATININE 0.50 0.50 - 1.04 [facility] mg/dL SERVICES eGFR Calculation 155.7 mL/min/1.73m2 [facility] (Non-) SERVICES eGFR Calculation 188.8 mL/min/1.73m2 [facility] () SERVICES Specimen Blood - ARM, RIGHT Narrative Performed At Association of Glomerular Filtration Rate (GFR) and St aging [facility] of Kidney Disease* + + +------- ------ + | GFR (mL/min/1.73 m2) | With Kidney Damage | Wi thout Kidney Damage + + +------- ------ + | >90 | Stage one | Normal + + +------- ------ + | 60-89 | Stage two | Decreased GFR + + +------- ------ + | 30-59 | Stage three | Stage three + + +------- ------ + | 15-29 | Stage four | Stage four + + +------- ------ + | <15 (or dialysis) | Stage five | Stage five + + +------- ------ + *Each stage assumes the associated GFR level has been in effect for at least three months. Stages 1 to 5, wit h or without kidney disease, indicate chronic kidney disease. Notes: Determination of stages one and two (with eGFR >59mL/min/1.73 m2) requires estimation of kidney damag e for at least three months as defined by structural or func tional abnormalities of the kidney, manifested by either: Pathological abnormalities or Markers of kidney damage (including abnormalities in the composition of the blo od or urine or abnormalities in imaging tests) . Performing Organization Address [facility]/Zipcode Phone Number [facility] CLIA: [id number], [address] [place] [address] [address] [facility] Uric Acid Serum (08/10/2019 10:05 PM COPY EDITOR) Pathologist Sig [facility] URIC ACID 4.1 2.9 - 6.0 mg/dL [facility] Specimen Blood - ARM, RIGHT Performing Organization Address [facility]/Zipcode Phone Number [facility] CLIA: [id number], [address] [place] [address] [address] [facility] GALV ONLY - SYPHILIS IGG/IGM (08/10/2019 10:05 PM COPY EDITOR) Pathologist [facility] Syphilis IgG/IgM Non-reactive Non-reactive [facility] Specimen Blood - VENOUS Narrative Performed At [facility] Non-reactive - No serologic evidence of T. pallidum infection. Cannot exclude incubating or early syphilis . Submit a second specimen in 2-4 weeks if syphilis is clinically suspected. Equivocal - Further testing to follow. Reactive - Further testing to follow. Performing Organization Address [facility] [place] [facility] Centercooh Phone Number [facility] CLIA: [id number], [address] [place] [address] [address] [facility] Hepatitis B Surface Antigen (08/10/2019 10:05 PM COPY EDITOR) [facility] HBsAg Negative Negative [facility] HBsAg 0.04 [facility] Semi-Quantitative SERVICES Specimen Blood - ARM, RIGHT Performing Organization Address [facility] [place] [facility] Centercode Phone Number [facility] CLIA: [id number], [address] [place] [address] 555 [facility] RHO (D) IMMUNE GLOBULIN (08/10/2019 10:04 PM COPY EDITOR) Pathologist Sig [facility] RHIG CANDIDATE? No- see comment LAB Comment: Patient is not a candidate for RhIg- Patient is Rh Pos itive. Performed at [facility] - [facility] Blood [facility] [address] [place] [address], [place], [place] [address] Toll Free: [phone] CLIA No. [id number] Specimen Blood - VENOUS Performing Organization Address City/State/Zipcode Phone Number [facility] Type and Screen - ONCE RADHA (08/10/2019 10:04 PM COPY EDITOR) Pathologist Sig nature ABO & RH O POSITIVE LAB Comment: Performed at [facility] Services - [facility] Blood [place] [address] Toll Free: [phone] CLIA No. [id number] IAT Negative LAB Comment: Performed at [facility] Services - [facility] Blood [place] [address] Toll Free: [phone] CLIA No. [id number] Specimen Blood - VENOUS Performing Organization Address City/State/Zipcode Phone Number [facility] documented in this encounter Visit Diagnoses Diagnosis (spontaneous vaginal delivery) - Jazlyn petersen Normal delivery Susceptible to varicella (non-immune), c urrently Supervision of other high-risk Obesity (BMI 30-39.9) Obesity, unspecified 39 weeks gestation of state, incidental Single live Outcome of delivery, single liveborn History of asthma Personal history of other diseases of re spiratory system Supervision of high risk , ante Multiparity Obesity affecting Gestational hypertension Unspecified hypertension complicating pr egnancy, childbirth, or the puerperium, unspecified as to episode of care documented in this encounter Administered Medications Medication Order MAR Action Action Date Dose Rate Site acetaminophen (TYLENOL) tablet Given 08/13/2019 4:19 AM COPY EDITOR 650 mg 650 mg 650 mg, Oral, Q6HPRN, Starting Zeina 08/11/19 at 2044, Until Discontinued, Routine, Pain (scale 1-3) Given 08/12/2019 6:45 PM COPY EDITOR 650 mg Given 08/12/2019 10:22 AM COPY EDITOR 650 mg docusate calcium (SURFAK) capsule 240 mg Given 08/13/2019 7:58 AM COPY EDITOR 240 mg 240 mg, Oral, QDAILYPRN, Starting Zeina 08/11/19 at 2044, Until Discontinued, Routine, Constipation ferrous sulfate tablet 325 mg Given 08/13/2019 7:58 AM COPY EDITOR 325 mg 325 mg, Oral, DAILY, First dose on Thu08/12/19 at 0900, Until Discontinued, Routine Given 08/12/2019 10:21 AM COPY EDITOR 325 mg ibuprofen (IBU) tablet 600 mg Given 08/13/2019 4:20 AM COPY EDITOR 600 mg 600 mg, Oral, Q6HPRN, Starting Zeina 08/11/19 at 2044, Until Discontinued, Routine, Pain (scale 4-6) Given 08/12/2019 4:07 PM COPY EDITOR 600 mg Given 08/12/2019 8:34 AM COPY EDITOR 600 mg vitamin w/FA (PRENATABS RX) Given 08/13/2019 7:[address] 1 tablet tablet 1 tablet 1 tablet, Oral, DAILY, First dose on Thu08/12/19 at 0900, Until Discontinued, Routine Given 08/12/2019 10:22 AM COPY EDITOR 1 tablet varicella virus vaccine live (VARIVAX (P F)) injection 0.5 mL 0.5 mL, Subcutaneous, ONCE-PRIOR TO DISC HARGE, 1 dose, Starting 08/13/19 at 0726, Until Discontinued, Routine, Give vaccine prior to dis charge Medication Order MAR Action Action Date Dose Rate Site amnioinfusion IV infusion via Given 08/11/2019 2:06 PM 1,000 mL 750 mL/hr GRAVITY 0.9 NaCL 1,000 mL COPY EDITOR at 750 mL/hr, Intrauterine, ONCE, 1 dose, Zeina 08/11/19 at 1400, RADHA, Infuse via gravity 750 ml over 1 hour. Once 750 mL has been infused, the infusion may be dicsontinued or decreased to 100 mL/hr until the liter is complete. Notify Supervisor [employer] if uterine resting tone exceeds 25 mmHg at any time during the amnioinfusion. Obstetrics (KARINA) Aminoinfusion Orders, D5W-LR IV infusion 1,000 mL New Bag 08/10/2019 10:02 PM COPY EDITOR 1,000 mL 125 mL/hr at 125 mL/hr, IV Infusion, CONTINUOUS, Starting 08/10/19 at 2200, Until Zeina 08/11/19 at 2045, Routine lactated ringers IV infusion 500 New Bag 08/11/2019 10:[address] 500 mL 999 mL/hr mL at 999 mL/hr, 500 mL, IV Infusion, ONCE, 1 dose, Zeina 08/11/19 at 1145, Routine LR 1000 mL + oxytocin 20 Rate Change 08/11/2019 2:30 PM 2 julio-u nits/min 6 mL/hr units IV Solution COPY EDITOR 2 julio-units/min (6 mL/hr), at 6 mL/hr, IV Infusion, TITRATE, Starting 08/10/19 at 2155, Until Zeina 08/11/19 at 2046, RADHA, Oxytocin Induction / Augmentation of Labor. Rate Change 08/11/2019 2:00 PM COPY EDITOR 6 julio-units/min 18 mL/hr Rate Change 08/11/2019 12:45 PM COPY EDITOR 10 julio-units/min 30 mL/hr LR 1000 mL + oxytocin 20 units IV Given 08/11/2019 9:20 PM COPY EDITOR 125 mL/hr Solution at 125 mL/hr, IV Infusion, ONCE, 1 dose, Zeina 08/11/19 at 2100, Routine ondansetron (ZOFRAN (PF)) injection 4 mg Given 08/11/2019 1:12 AM COPY EDITOR 4 mg 4 mg, Slow IV Push, ONCE, 1 dose, Zeina 08/11/19 at 0215, Routine sodium citrate-citric acid (BICITRA) 500-334 Given 12/2019 10:38 AM COPY EDITOR 30 mL mg/5 mL solution 30 mL 30 mL, Oral, PRE-PROCEDURE ONCE, 1 dose, Starting 08/10/19 at 2151, Until Zeina 08/11/19 at 1038, Routine, Surgery/Procedure documented in this encounter Insurance Payer Benefit Plan / Subscriber ID Effective Dates Phone Addre ss Type Group [place] xxxxxxxxx 2019-Present Medicaid HEALTH PLAN - HEALTH MANAGED MEDICAID documented as of this encounter Advance Directives Name Relationship Healthcare Agent Relationship Co mmunication Julieth Espinosa Mother Primary healthcare agent
--- OUTSIDE RECORDS SUMMARY | 2019-10-14 14:15 | XMS REPORT | Summary of Care ---
:2000 Author Organization [facility] Address [address] [place] [address] Care Team Providers Name Role Phone Doctor Unassigned, Name Insurance Hmo Unavailable Naheed Lord [facility] Primary Care Provider Reason for Visit Reason Comments Care Encounter Details Date Type Department Care Team Description 09/01/2019 Routine [facility] Col[facility] Lord Visit Araseli Farfan [facility] follow-up (Primary [address]) [facility] [id number] [facility] [phone] [place] [address] Allergies No Known Allergiesdocumented as of this encounter (statuses as of 09/01/2019) Medications Medication Sig Dispensed Refills Start Date [...] as of this encounter (statuses as of 09/01/2019) Active Problems Patient Care Coordination Note iol 6-15-18 at 7am Problem Noted Date Routine follow-up 09/01/2019 History of asthma 08/12/2019 Gestational hypertension 08/11/2019 Obesity (BMI 30-39.9) 08/10/2019 Susceptible to varicella (non-immune), currently pregn ant 12/20/2018 Overview: Address pp documented as of this encounter (statuses as of 09/01/2019) Resolved Problems Problem Noted Date Resolved Date (spontaneous vaginal delivery) 08/12/201909/01 Single live 08/12/2019 09/01/2019 39 weeks gestation of 08/10/2019 09/01/19 20 Multiparity 12/17/2018 08/13/2019 Contraceptive management 10/27/2017 12/17/2018 Overview: Declines tubal Nausea and vomiting during prior to 22 weeks 05/2012/17/2018 gestation Abnormal maternal glucose tolerance, antepartum 04/23/2017 12/17/2018 Overview: passed 3hr Susceptible to varicella (non-immune), currently 12/17/2018 Supervision of high risk , antepartum 04/22/2017 08/13/2019 Obesity affecting 04/22/2017 08/13/2019 documented as of this encounter (statuses as of 09/01/2019) Immunizations Name Administration Dates Next Due Tdap [...] Sign Reading Time Taken Comments Blood Pressure 114/68 09/01/2019 10:15 AM LINE CONSTRUCTION SUPERVISOR Pulse 74 09/01/2019 10:15 AM LINE CONSTRUCTION SUPERVISOR Temperature 36.7 C (98.1 F) 09/01/2019 10:15 AM LINE CONSTRUCTION SUPERVISOR Respiratory Rate 16 09/01/2019 10:15 AM LINE CONSTRUCTION SUPERVISOR Oxygen Saturation - - Inhaled Oxygen Concentration - - Weight 85.3 kg (188 lb 2 oz) 09/01/2019 10:15 AM LINE CONSTRUCTION SUPERVISOR Height 162.6 cm (5' 4") 09/01/2019 10:15 AM LINE CONSTRUCTION SUPERVISOR Body Mass Index 32.29 09/01/2019 10:15 AM LINE CONSTRUCTION SUPERVISOR documented in this encounter Patient Instructions Patient InstructionsPranav Mitchell RN - 09/01/2019 9:30 AM LINE CONSTRUCTION SUPERVISOR Etonogestrel implant What is this medicine? ETONOGESTREL (et oh marielena DERIC trel) is a contraceptive ( control) device. It is used to prevent . It can be used for up to 3 years. How should I use this medicine? This device is inserted just under the skin on the inner side of your upper arm by a health nurse care manager. Talk to your family sociologist regarding the use of this medicine in children. Special care may be needed. What side effects may I notice from receiving this medicine? Side effects that you should report to your doctor or health nurse care manager as soon as possible: allergic reactions like skin rash, itching or hives, swelling of the face, lips, or tongue breast lumps changes in emotions or moods depressed mood heavy or prolonged menstrual bleeding pain, irritation, swelling, or bruising at the insertion site scar at site of insertion signs of infection at the insertion site such as fever, and skin redness, pain or discharge signs of signs and symptoms of a blood clot such as breathing problems; changes in vision; chest pain; severe, sudden headache; pain, swelling, warmth in the leg; trouble speaking; sudden numbness or weakness of the face, arm or leg signs and symptoms of liver injury like dark yellow or brown urine; general ill feeling or flu-like symptoms; light-colored stools; loss of appetite; nausea; right upper belly pain; unusually weak or tired; yellowing of the eyes or skin unusual vaginal bleeding, discharge signs and symptoms of a stroke like changes in vision; confusion; trouble speaking or understanding; severe headaches; sudden numbness or weakness of the face, arm or leg; trouble walking; dizziness; loss of balance or coordination Side effects that usually do not require medical attention (report to your doctor or health nurse care manager if they continue or are bothersome): acne back pain breast pain changes in weight dizziness general ill feeling or flu-like symptoms headache irregular menstrual bleeding nausea sore throat vaginal irritation or inflammation What may interact with this medicine? Do not take this medicine with any of the following medications: amprenavir bosentan fosamprenavir This medicine may also interact with the following medications: barbiturate medicines for inducing sleep or treating seizures certain medicines for fungal infections like ketoconazole and itraconazole grapefruit juice griseofulvin medicines to treat seizures like carbamazepine, felbamate, oxcarbazepine, phenytoin, topiramate modafinil phenylbutazone rifampin rufinamide some medicines to treat HIV infection like atazanavir, indinavir, lopinavir, nelfinavir, tipranavir, ritonavir Cecilia's wort What if I miss a dose? This does not apply. Where should I keep my medicine? This drug is given in a hospital or clinic and will not be stored at home. What should I tell my health care provider before I take this medicine? They need to know if you have any of these conditions: abnormal vaginal bleeding blood vessel disease or blood clots cancer of the breast, cervix, or liver depression diabetes gallbladder disease headaches heart disease or recent heart attack high blood pressure high cholesterol kidney disease liver disease renal disease seizures tobacco smoker an unusual or allergic reaction to etonogestrel, other hormones, anesthetics or antiseptics, medicines, foods, dyes, or preservatives or trying to get breast-feeding What should I watch for while using this medicine? This product does not protect you against HIV infection (AIDS) or other sexually transmitted diseases. You should be able to feel the implant by pressing your fingertips over the skin where it was inserted. Contact your doctor if you cannot feel the implant, and use a non-hormonal control method (such as condoms) until your doctor confirms that the implant is in place. If you feel that the implant may have broken or become bent while in your arm, contact your healthcare provider. NOTE:This sheet is a summary. It may not cover all possible information. If you have questions aboutthis medicine, talk to your doctor, pharmacist, or health care provider. Copyright 2018 Elsevier Understanding Depression Youve just had a baby. You expected to be excited and happy. But instead you find yourself cryingfor no reason. You may have trouble coping with your daily tasks. You feel sad, tired, and hopeless most of the time. You may even feel ashamed or guilty. But what youre going through is not your fault and you can feel better. Talk to your healthcare provider. He or she can help. What is depression? Depression is a mood disorder that affects the way you think and feel. The most common symptom is a feeling of deep sadness. You may also feel as if you just cant cope with life. Other symptoms include: Gaining or losing a lot of weight Sleeping too much or too little Feeling tired all the time Feeling restless Crying a lot Having too little or too much appetite. Withdrawing from friends and family Having headaches, aches and pains, or stomach problems that won't go away. Fears of harming your baby Lack of interest in your baby Feeling worthless or guilty No longer finding pleasure in things you used to Having trouble thinking clearly or making decisions Thinking about or suicide Depression after childbirth You may be weepy and tired right after giving . These feelings are normal. Theyre sometimes called the baby blues. These blues go away after 1 to 2 weeks. However, (meaning after ) depression lasts much longer and is more severe than the "baby blues." It can make you feel sad and hopeless. You may also fear that your baby will be harmed and worry about being a bad mother. What causes depression? The exact cause of depression is unknown. Changes in brain chemistry or structure are believed to play a big role in depression.It may be due to changes in your hormones during and after childbirth. You may also be tired from caring for your baby and adjusting to being a mother. All thesefactors may make you feel depressed. In some cases, your genes may also play a role. Depression can be treated There are many ways to treat depression. Talking to your healthcare provider is the firststep toward feeling better. When to call your healthcare provider Call your healthcare provider if you: Cry for no clear reason Have trouble sleeping, eating, and making choices Questions whether you can handle caring for a baby Have intense feelings of sadness, anxiety, or despair that prevent you from being able to do yourdaily tasks Resources National Helper of Mental Wlwpei750-069-8916xpx.[facility].nih.gov National [place] on Mental Bdmwzvb950-115-8679uim.elia.org Mental Health Clwosde068-850-4131qoo.[facility].org National Suicide Qelbcqj897-914-8383 (800-SUICIDE) Reji last reviewed this educational content on 01/03/201719997768-1083 [employer]. [address] [place] [address]. All rights reserved. This information is not intended as a substitute for professional medical care. Always follow your healthcare professional's instructions. Control Choices control keeps you from getting during sex. There are many types of control. Some are more effective than others. New types are being tested all the time. Your healthcare provider can help you decide which type of control is best for you. But no matter which type you choose, you and your partnermust use it the right way each time you have sex.Some of the most common types are described below. Condom A condom is a thin covering that fits over the penis. (The female condom fits inside the vagina.) A condom catches sperm that come out of the penis during sex. Spermicide Spermicide is a gel, foam, cream, tablet, or sponge (although the sponge has barrier properties in addition to spermicidal properties). It is put in the vagina before sex to kill sperm. Diaphragm and cervical cap Diaphragms and cervical caps are round rubber cups that keep sperm out of the uterus. They also holdspermicide in place. Intrauterine device (IUD) An IUD is a small device that is placed in the uterus by a healthcare provider to prevent . The pill The control pill is taken daily. It contains hormones that stop a womans body from releasing an egg each month. Other hormones Hormones that stop a womans egg from being released each month can be delivered in other ways. These include injection, implant, patch, or vaginal ring. Other choices Here are some other control methods: Male sterilization (vasectomy). Thisis surgery that ties off or cuts the tubes (vas deferens) in the testes. This is done so spermcan'tcome out when the man ejaculates. Female sterilization. Thisis surgery to block or cut the woman's fallopian tubes. It can be done by placing a tool into the uterus (hysteroscopy). This is done toplacesmall coils into the fallopian tubes. The FDA has placed restrictions on this method. If you are interested in this method, talk with your healthcare provider about possible risks. Female sterilization can also be donethroughthe belly (laparoscopy) to block the tubes. Or to removepart or all of the tubes. Withdrawal method. This is when the male doesn't ejaculate into the vagina. Instead he withdraws his penis justbefore he ejaculates. But the failure rate for this method ranges from 22% to 28%. Fertility awareness method. This is when a woman keeps track of her fertile days. She only has sex at times when she is not likely to get . This method is hard for women who have irregular periods. Emergency contraception (EC) Emergency contraception can help prevent after unprotected sex. Hormone pills (morning after pills) are available over the counter to anyone. A second type of EC, a copper IUD, needs to be inserted by a trainedhealthcare provider. Either type of EC can be used up to 5 days after sex. But it should be taken as soon as possible. The sooner it is used after unprotected sex, the more likely it is to be effective. EC will not work if youre already . Things to consider Think about the following: Choose a type of control that is easy for you to use. Read the package and follow your healthcare provider's instructionsto learn to use your control the right way. Most forms of control don't protect you from sexually transmitted infections (STIs). To protect against STIs, always use a latex condom. If you are allergic to latex, a nonlatex condom may offer some protection. [employer] | Anywhere last reviewed this educational content on 12/04/201819999976-2293 [employer]. [address] [place] [address]. All rights reserved. This information is not intended as a substitute for professional medical care. Always follow your healthcare professional's instructions. CONSTRUCTION SUPERVISOR documented in this encounter Progress Notes Theresa Lord, WHCNP - 09/01/2019 9:30 AM CST Chief complaint: Chief Complaint Patient presents with Care HPI The patient is here for a routine PP visit. She has no complaints today. She states that she is /formula feeding her infant, is bonding well, and coping well with less sleep. She reports that she has no pain, small lochia, and denies all s/s of PP depression. She wants nexplanon for PP contraception. Histories OB History Para Term AB Living 2 2 2 2 SAB TAB Ectopic Multiple Live Births 0 2 # Outcome Date GA Lbr Eben/2nd Weight Sex Delivery Anes PTL Lv 2 Term 08/11/19 39w1d 5 lb 13.8 oz (2.66 kg) M NORMAL SPONT EPI KRISTEL 1 Term 12/17/17 38w6d 5 lb 6 oz (2.438 kg) F VAGINAL N KRISTEL Past Medical History: Diagnosis Date Abnormal maternal glucose tolerance, antepartum 04/23/2017 Asthma 2001 resolved Gestational hypertension 08/11/2019 Family History Problem Relation Age of Onset [...] file Gets together: Not on file Attends anabaptist service: Not on file Active member of [...] intercourse 04/01/2017 Labs No new labs and Admission on 08/10/2019, Discharged on 08/13/2019 Component Date Value HBsAg 08/10/2019 Negative HBsAg Semi-Quantitative 08/10/2019 0.04 Syphilis IgG/IgM 08/10/2019 Non-reactive ABO & RH 08/10/2019 O POSITIVE IAT 08/10/2019 Negative VENOUS BASE EXCESS, CORD 08/11/2019 -2.4 VENOUS PH, CORD 08/11/2019 7.37 VENOUS PC02, CORD 08/11/2019 41 VENOUS PO2, CORD 08/11/2019 38 VENOUS BICARBONATE, CORD 08/11/2019 23 BASE EXCESS, CORD 08/11/2019 -4.9 AC PH, CORD (BEAKER) 08/11/2019 7.28 PC02, CORD 08/11/2019 49 PO2, CORD 08/11/2019 29 BICARBONATE, CORD 08/11/2019 22 URIC ACID 08/10/2019 4.1 T. PROT U 08/11/2019 12 CREAT U 08/11/2019 215.7 Protein/Creatinine Ratio* 08/11/2019 0.1 CREATININE 08/10/2019 0.50 eGFR Calculation (Non-Af* 08/10/2019 155.7 eGFR Calculation (Karyn* 08/10/2019 188.8 AST(SGOT) 08/10/2019 22 ALTv 08/10/2019 10 LDH 08/11/2019 433 APPEARANCE 08/11/2019 Hazy* COLOR 08/11/2019 Yellow PH 08/11/2019 6.0 SP GRAVITY 08/11/2019 1.018 GLU U QUAL 08/11/2019 Normal BLOOD 08/11/2019 Negative KETONES 08/11/2019 5 mg/dL* PROTEIN 08/11/2019 30 mg/dL* UROBILIN 08/11/2019 4.0 mg/dL* BILIRUBIN 08/11/2019 Negative NITRITE 08/11/2019 Negative LEUK REFUGIO 08/11/2019 25/uL* RBC/HPF 08/11/2019 2 WBC/HPF 08/11/2019 7* BACTERIA 08/11/2019 Moderate* MUCOUS 08/11/2019 Marked* SQ EPITH 08/11/2019 9* WBC 08/11/2019 7.61 RBC 08/11/2019 4.99 HGB 08/11/2019 10.8* HCT 08/11/2019 36.6 MCV 08/11/2019 73.3* MCH 08/11/2019 21.6* MCHC 08/11/2019 29.5* RDW-SD 08/11/2019 43.4 RDW-CV 08/11/2019 17.0* PLT 08/11/2019 247 MPV 08/11/2019 11.5 NRBC/100 WBC 08/11/2019 0.0 NRBC x10^3 08/11/2019 <0.01 GRAN MAT (NEUT) % 08/11/2019 50.4 IMM GRAN % 08/11/2019 0.30 LYMPH % 08/11/2019 39.9 MONO % 08/11/2019 8.3 EOS % 08/11/2019 0.8 BASO % 08/11/2019 0.3 GRAN MAT x10^3(ANC) 08/11/2019 3.84 IMM GRAN x10^3 08/11/2019 <0.03 LYMPH x10^3 08/11/2019 3.04 MONO x10^3 08/11/2019 0.63 EOS x10^3 08/11/2019 0.06 BASO x10^3 08/11/2019 <0.03 RHIG CANDIDATE? 08/10/2019 No- see comment WBC 08/12/2019 14.22* RBC 08/12/2019 4.80 HGB 08/12/2019 10.3* HCT 08/12/2019 35.5* MCV 08/12/2019 74.0* MCH 08/12/2019 21.5* MCHC 08/12/2019 29.0* RDW-SD 08/12/2019 44.3 RDW-CV 08/12/2019 16.9* PLT 08/12/2019 206 MPV 08/12/2019 12.1 NRBC/100 WBC 08/12/2019 0.0 NRBC x10^3 08/12/2019 <0.01 GRAN MAT (NEUT) % 08/12/2019 70.9 IMM GRAN % 08/12/2019 0.50 LYMPH % 08/12/2019 21.0 MONO % 08/12/2019 7.2 EOS % 08/12/2019 0.2 BASO % 08/12/2019 0.2 GRAN MAT x10^3(ANC) 08/12/2019 10.09* IMM GRAN x10^3 08/12/2019 0.07* LYMPH x10^3 08/12/2019 2.98 MONO x10^3 08/12/2019 1.02* EOS x10^3 08/12/2019 0.03 BASO x10^3 08/12/2019 0.03 Routine Visit on 08/03/2019 Component Date Value POCT U SP GRAV 08/03/2019 . POCT PH U 08/03/2019 . POCT U LEUK EST 08/03/2019 . POCT U NIT 08/03/2019 . POCT U PROT 08/03/2019 1+ POCT U GLU 08/03/2019 Neg POCT U KETONE 08/03/2019 . POCT U UROBILI 08/03/2019 . POCT U BILI 08/03/2019 . POCT U BLD 08/03/2019 . Routine Visit on 07/26/2019 Component Date Value [...] 06/13/2019 . POCT U BLD 06/13/2019 . Radiology No new radiology. Allergies Emily has No Known Allergies. Medications Emily has a current medication list which includes the following prescription(s): iron fum & p-fa-vit b & c no.9, docusate calcium, and ibuprofen. Review of Systems Constitutional: Negative. HENT: Negative. Eyes: Negative. Respiratory: Negative. Breasts: Negative. Cardiovascular: Negative. Gastrointestinal: Negative. Genitourinary: Negative. Musculoskeletal: Negative. Skin: Negative. Neurological: Negative. Psychiatric/Behavioral: Negative. Endocrine: Endocrine negative BP 114/68 (BP Location: Right arm, Patient Position: Sitting, BP CUFF SIZE: Adult Medium) | Pulse 74 | Temp 36.7 C (98.1 F) (Oral) | Resp 16 | Ht 5' 4" (1.626 m) | Wt 188 lb 2 oz (85.3 kg) | LMP 11/10/2018 (Within Days) | BMI 32.29 kg/m Pregravid BMI: Could not be calculated Physical Exam Vitals reviewed. Constitutional: She is oriented to person, place, and time. She appears well- developed, well-nourished and well-groomed. Cardiovascular: Regular rate and rhythm. No peripheral edema present. Pulmonary/Chest: Normal inspiratory effort. Abdominal: Abdomen is soft. Normal appearance. No mass palpated. No tenderness present. There is no hepatosplenomegaly, splenomegaly or hepatomegaly. There is no rigidity and no guarding. No hernia palpated or inspected. Fundus firm Neuro/Psychiatric: She has a normal mood and affect. She is oriented to person, place, and time. Skin: Skin normal. Breast: Right breast exhibits no mass, no nipple discharge and no tenderness. Left breast exhibits no mass, no nipple discharge and no tenderness. Breasts are symmetrical. Normal left breast and normalright breast Rectal: Rectal exam with normal anal tone. No mass, no external hemorrhoid and no internal hemorrhoid palpated or inspected. normal rectum External genitalia: Normal external genitalia appropriate for age. Normal hair distribution. No labial lesion. Vagina:No lesion inspected. Normal estrogen effect. Normal support. Vaginal discharge found. Lochia WNL, small rubra Uterus: Uterus is normal size, normal contour, normal position and non-tender. Involution WNL Normal uterus Assessment/Plan Return to clinic in 3 weeks. for WWE and contraceptive management Routine follow-up (primary encounter diagnosis) Comment: routine Plan: as needed mgmt This visit did not involve counseling and coordination that comprised more than 50% of the visit time. LINDA Vergara 09/01/2019 10:40 AM CONSTRUCTION SUPERVISOR Pranav Mitchell, RN - 09/01/2019 9:30 AM CSTPt in clinic today for 3 wk pp visit. 1) Delivery method vaginal 2) Patient delivered on 08/11/2019 at [facility] 3) Patient is currently /bottlefeeding 4) Desired BCM: nexplanon 5) Patient denies pp depression CONSTRUCTION SUPERVISOR documented in this encounter Plan of Treatment Health Maintenance Due Date Last Done Comments [...] filedocumented in this encounter Visit Diagnoses Diagnosis Routine follow-up - Primary documented in this encounter Insurance Payer Benefit Plan / Subscriber ID Effective Dates Phone Addre ss Type Group [place] [employer] [place] [employer] xxxxxxxxx 2019-Present Medicaid HEALTH PLAN - HEALTH MANAGED MEDICAID documented as of this encounter Advance Directives Name Relationship Healthcare Agent Relationship Co mmunication Julieth Espinosa Mother Primary healthcare agent
--- OUTSIDE RECORDS SUMMARY | 2019-10-14 14:16 | XMS REPORT | Summary of Care ---
:2000 Author Organization [facility] Address [address] [place] [address] Care Team Providers Name Role Phone Doctor Unassigned, Name Insurance Hmo Unavailable Naheed Lord [facility] Primary Care Provider Reason for Visit Reason Comments CONTROL Well Woman Exam Encounter Details Date Type Department Care Team Description [facility] female [facility] (Primary Dx); Araseli Farfan [facility] Well woman exam; [address] Obesity (BMI 30-39.9); [place], [place] A Need for HPV vaccination [id number] [place] [address] [phone] Allergies No Known Allergiesdocumented as of this encounter (statuses as of 09/23/2019) Medications Medication Sig Dispensed Refills Start Date [...] gestation of , (spontaneous vaginal delivery), [facility], or Other Ordered Dose Route Frequency Start Date End Date Status Facility Administered Medication etonogestrel (NEXPLANON) 68 mg Sdrm ONCE NOW 09/23/201909/04 Ended implant 68 mgIndications: Encounter for female control documented as of this encounter (statuses as of 09/23/2019) Active Problems Patient Care Coordination Note iol 6-15-18 at 7am Problem Noted Date Routine follow-up 09/01/2019 History of asthma 08/12/2019 Gestational hypertension 08/11/2019 Obesity (BMI 30-39.9) 08/10/2019 Susceptible to varicella (non-immune), currently pregn ant 12/20/2018 Overview: Address pp documented as of this encounter (statuses as of 09/23/2019) Resolved Problems Problem Noted Date Resolved Date [...] as of this encounter (statuses as of 09/23/2019) Immunizations Name Administration Dates Next Due HPV9 09/23/2019 Tdap 05/30/2019, 10/13/2017 Varicella (varivax)(chicken pox) 08/13/2019 [...] Sign Reading Time Taken Comments Blood Pressure 125/77 09/23/2019 3:15 PM CDT Pulse 78 09/23/2019 3:15 PM CDT Temperature 37.1 C (98.8 F) 09/23/2019 3:15 PM CDT Respiratory Rate 16 09/23/2019 3:15 PM CDT Oxygen Saturation - - Inhaled Oxygen Concentration - - Weight 85.5 kg (188 lb 7 oz) 09/23/2019 3:15 PM CDT Height 162.6 cm (5' 4") 09/23/2019 3:15 PM CDT Body Mass Index 32.35 09/23/2019 3:15 PM CDT documented in this encounter Progress Notes Theresa Lord, WHCNP - 09/23/2019 3:00 PM CDT Chief complaint: Chief Complaint Patient presents with CONTROL Well Woman Exam HPI: the patient is here today for WWE and contraceptive management/. She reports she is doing well with no issues or concerns today. She desires STI testing today but declines the need for HIV testingtoday. She reports she desires nexplanon for control on today. She is currently on her menses t hat started on 09/17/19. Pt (denies) current or past physical, sexual or emotional abuse. Histories OB History Para Term AB Living [...] activity: Yes Partners: Male Comment: last sexual intercourse: Before baby Lifestyle Physical activity: Days per week: Not on file Minutes per session: Not on file Stress: Not on file Relationships Social connections: Talks on phone: Not on file Gets together: Not on file Attends jew service: Not on file Active member of [...] Activity Yes Partners: Male Comment: last sexual intercourse: Before baby Labs Labs are pending. Radiology No new radiology. Allergies Emily has No Known Allergies. Medications Emily has a current medication list which includes the following prescription(s): docusate calcium,ibuprofen, and iron fum & p-fa-vit b & c no.9. Review of Systems Constitutional: Negative. HENT: Negative. Eyes: Negative. Respiratory: Negative. Breasts: Negative. Cardiovascular: Negative. Gastrointestinal: Negative. Genitourinary: Negative. Musculoskeletal: Negative. Skin: Negative. Neurological: Negative. Psychiatric/Behavioral: Negative. Endocrine: Endocrine negative BP 125/77 (BP Location: Right arm, Patient Position: Sitting, BP CUFF SIZE: Adult Medium) | Pulse 78 | Temp 37.1 C (98.8 F) (Oral) | Resp 16 | Ht 5' 4" (1.626 m) | Wt 188 lb 7 oz (85.5 kg) | BMI 32.35 kg/m Pregravid BMI: Could not be calculated Physical Exam Vitals reviewed. Constitutional: She is oriented to person, place, and time. She appears well- developed. Her body habitus is normal. Neck: No tenderness and no mass. No thyroid nodules and no thyromegaly palpated. No neck adenopathy. Cardiovascular: Regular rate and rhythm. No gallop, no friction rub and no murmur auscultated. No peripheral edema present. Pulmonary/Chest: Breath sounds clear to auscultation. Normal inspiratory effort. Abdominal: Abdomen is soft. No mass palpated. No tenderness present. There is no hepatosplenomegaly,splenomegaly or hepatomegaly. There is no rigidity. No hernia palpated or inspected. Neuro/Psychiatric: She has a normal mood and affect. She is oriented to person, place, and time. Skin: No lesion, no rash and no ulceration present. Lymphadenopathy: No neck adenopathy present. No axillary adenopathy present. No inguinal adenopathy present. Breast: Right breast exhibits no mass, no nipple discharge and no tenderness. Left breast exhibits no mass, no nipple discharge and no tenderness. Breasts are symmetrical. Normal left breast and normalright breast Rectal: Rectal exam with normal anal tone. No mass, no external hemorrhoid and no internal hemorrhoid palpated or inspected. External genitalia: Normal external genitalia appropriate for age. Normal hair distribution. No labial lesion. Urethral meatus: Normal urethral meatus size, location and no lesion. No prolapse present. Normal urethral meatus Urethra: Normal urethra. No urethral tenderness, no mass and no urethral scarring palpated. Bladder: Bladder has no fullness, no mass palpated and no tenderness. Normal bladder Vagina:Normal vagina. No lesion inspected. Normal estrogen effect. Normal support. No abnormal vaginal discharge found. Cervix: Normal cervix. No lesion. No tenderness and no discharge present. Uterus: Uterus is normal size, normal contour, normal position and non-tender. Normal uterus Adnexa: Right adnexa without tenderness, ovary enlargement or mass. Left adnexa without tenderness, ovary enlargement or mass. Normal left adnexa and normal right adnexa Anus/perineum: Normal perineum and normal anus. Assessment/Plan Return to clinic in 2 weeks. for telehealth visit due to current COVID-19 Return to clinic in 1 year for WWE or sooner as needed Rubella/VZV: immune/pending BMI 32 Td 2019 Pap Smear: today Gardasil: Gardasil #1 today, #2 in 2 months, and #3 in 6 months Mammogram/Guaiac/Colonoscopy Encounter for female control (primary encounter diagnosis) Comment: as ordered Plan: POCT TEST Well woman exam Comment: routine Plan: PAP Smear-Liquid Based, GC & CHLAMYDIA AMPLIFIED ASSAY, PAP Smear-Liquid Based, GC & CHLAMYDIA AMPLIFIED ASSAY Obesity (BMI 30-39.9) Comment: see bmi Plan: BMI discussed, appropriate weight gain, sensible diet, and exercise HPV Vac Comment: desires Plan: Gardasil #1 today, #2 in 2 months, and #3 in 6 months This visit did not involve counseling and coordination that comprised more than 50% of the visit time LINDA Vergara 09/23/2019 3:49 PM . Theresa Lord WHCNP - 09/23/2019 3:00 PM CDTNexplanon PLACEMENT PROCEDURE NOTE Preoperative Diagnoses: desires LARC The risks, benefits and alternatives were discussed. The patient voiced her understanding. She wished to proceed and an informed consent was obtained. Patient has been identified by name and and will be undergoing Nexplanon placement. Patient is right handed. Patient, procedure and site have been confirmed by the following clinicians: Dolly Lord DNP and Loretta Lopez RN . Timeout performed by LINDA Vergara at [id number]. Procedure: The patient is placed on the exam table in a supine position. Her non-dominant arm is flexed at the elbow and externally rotated so her wrist is parallel to her ear and her hand is positioned next to her head. The inner aspect of the upper arm is marked at 8cm and 12cm superior to the medial epicondyle, in the mid-portion of the upper arm, parallel with the humerus. The surface of the inner arm is then prepped with alcohol. Sterile drapes are applied. The insertion area is injected subcutaneously with 2 ccs of lidocaine 1% without epinephrine along the planned insertion tunnel. The Nex planon insertion needle is then inserted at 8cm superior to the medial epicondyle, using counter traction and lifting the skin to keep the needle in the subdermal connective tissue. The needle is advanced to 12 cm above the medial epicondyle. The cannula is then retracted and needle is removed. Thereis minimal bleeding from the insertion site. The Nexplanon capsule is easily palpable by myself and the patient. Sterile gauze and a pressure dressing is placed over the insertion site. The patient tolerated the procedure well and there were no complications. Post-procedure instructions given. Patient verbalized understanding. Findings/Assessment Nexplanon inserted successfully, patient tolerated procedure well Plan Return to clinic in 2 weeks. Nexplanon Lot #: [id number] Year removal date: 09/25 Patient palpated implant: Yes Loretta Romero RN - 09/23/2019 3:00 PM CDT19 year old presents to the clinic for wwe. 1) Previous BCM: none 2) Desired BCM: nexplanon 3) LMP: 09/04/2019 4) Last [place]: before baby 5) Last Pap: never Results: N/a 6) Tdap: 2019 7) Gardasil: unsure 8) C/O: Pt denies any symptoms 9) Patient denies history of physical, emotional, or sexual abuse. Patient states that she currently feels safe at home. Pt in clinic for Nexplanon placement. Last date of sexual intercourse was before baby. LMP 09/04/2019 UPT negative. Informed consent signed and obtained from pt Pt instructed to use a back up control method for the first 7 days, side effects and ER warnings discussed, verbalized understanding. Nexplanon (lot:[id number] exp:12/28/21)dispensed from clinic stock to provider for placement. LORETTA PRECIADO RN 09/23/2019 3:37 PM documented in this encounter Plan of Treatment Date Type Specialty Care Team Description 10/07/2019 [facility]medicine Visit [facility] Lord[facility] [address], [place] [address] [phone] 11/23/2019 Nurse Visit [facility] Satellites Visit, [facility] Nurse Name Type Priority Associated Diagnoses Date/Ti me PAP Smear-Liquid Based LAB Routine Well woman exam 3:45 PM CDT GC & CHLAMYDIA AMPLIFIED LAB Routine Well woman exam 09/23/2019 3:45 PM CDT ASSAY Name Type Priority Associated Diagnoses Order S chedule PAP Smear-Liquid LAB Routine Well woman exam Expected : 09/23/2019, Based Expires: 2020 GC & CHLAMYDIA LAB Routine Well woman exam Expected: 09/23/2019, AMPLIFIED ASSAY Expires: GARDASIL 9 (HPV 9V) IMMUNIZATION/I Routine Need for HPV 3 Occu rrences VACCINE NJECTION vaccination starting 2019 until 1, 1 completed Health Maintenance Due Date Last Done Comments [...] Name Priority Date/Time Associated Diagnosis Comme nts GARDASIL 9 (HPV 9V) Routine 09/23/2019 4:08 PM Need for HPV VACCINE CDT vaccination POCT TEST Routine 09/23/2019 3:16 PM Encounter for female Results for this CDT control procedure are in the results section. documented in this encounter Results POCT TEST (09/23/2019 3:16 PM CDT) Pathologist Sig nature POCT PREG Negative On board controls acceptable Yes with C Line POCT PREG LOT # POCT PREG TEST DATE Specimen Urine - URINE, CLEAN CATCH documented in this encounter Visit Diagnoses Diagnosis Encounter for female control - Jazlyn petersen Other specified contraceptive management Well woman exam Routine general medical examination at a health care facility Obesity (BMI 30-39.9) Obesity, unspecified Need for HPV vaccination Need for prophylactic vaccination and in oculation against other viral diseases documented in this encounter Administered Medications Medication Order MAR Action Action Date Dose Rate Site etonogestrel (NEXPLANON) Given 09/23/2019 3:45 PM CDT 68 mg Left Arm implant 68 mg 68 mg, Subdermal, ONCE NOW, 1 dose, Thu09/23/19 at 1645, Routine, Use approved by: SUPERVISORY CBP OFFICER documented in this encounter Insurance Payer Benefit Plan / Subscriber ID Effective Dates Phone Addre ss Type Group [place] xxxxxxxxx 2019-Present Medicaid HEALTH PLAN - HEALTH MANAGED MEDICAID documented as of this encounter Advance Directives Name Relationship Healthcare Agent Relationship Co mmunication Julieth Espinosa Mother Primary healthcare agent
--- OUTSIDE RECORDS SUMMARY | 2019-10-14 14:16 | XMS REPORT | Summary of Care ---
:2000 Author Organization [facility] Address [address] [place] [address] Care Team Providers Name Role Phone Doctor Unassigned, Name Insurance Hmo Unavailable Naheed Lord Primary Care Provider Reason for Visit Reason Comments Appointment telehealth Encounter Details Date Type Department Care Team Description 10/06/2019 Telephone [facility]- Theresa Lord Mai ointment LINDA Sahu (telehealth) [address] [facility] [address] [facility] [id number] [place], [place] [id number] Allergies No Known Allergiesdocumented as of this encounter (statuses as of 10/06/2019) Medications Medication Sig Dispensed Refills Start Date [...] as of this encounter (statuses as of 10/06/2019) Active Problems Patient Care Coordination Note iol 6-15-18 at 7am Problem Noted Date Routine follow-up 09/01/2019 History of asthma 08/12/2019 Gestational hypertension 08/11/2019 Obesity (BMI 30-39.9) 08/10/2019 Susceptible to varicella (non-immune), currently pregn ant 12/20/2018 Overview: Address pp documented as of this encounter (statuses as of 10/06/2019) Resolved Problems Problem Noted Date Resolved Date [...] as of this encounter (statuses as of 10/06/2019) Immunizations Name Administration Dates Next Due HPV9 [...] Treatment Date Type Specialty Care Team Description 11/23/2019 Nurse Visit [facility] Satellites Visit, [facility] Nurse Health Maintenance Due Date Last Done Comments HPV VACCINES (2 - Female 10/21/2019 09/23/2019 3-dose series) WELL CARE VISIT: -01/10/2020 2019 YEARS (yearly) MENINGOCOCCAL B VACCINES (1 06/12/2020 Post poned from of 2 - Risk Bexsero 2-dose 01/09 ( or series) ) INFLUENZA VACCINE (#1) 2020 Postponed from 03/06/2019 (Refu sed) VARICELLA VACCINES (1 of 2 06/13/2020 Postp oned from - 2-dose childhood series) 01/09 ( or ) CHLAMYDIA SCREENING 09/22/2020 09/23/2019, 07/26/2019, 12/17/2018, Additional history exists PAP SMEAR 09/22/2022 09/23/2019 DTaP,Tdap,and Td Vaccines 05/30/2029 05/30/2019, 10/13/2017 (3 [...]
--- OUTSIDE RECORDS SUMMARY | 2019-10-14 14:16 | XMS REPORT | Summary of Care ---
:2000 Author Organization [facility] Address [address] [place] [address] Care Team Providers Name Role Phone Doctor Unassigned, Name Insurance Hmo Unavailable Naheed Lord [facility] Primary Care Provider Encounter Details Date Type Department Care Team Description 09/23/2019 Orders Only [facility] Doctor Unassigned, No [address] [facility] [place] [address] [address] [place] [address] Allergies No Known Allergiesdocumented as of this encounter (statuses as of 09/29/2019) Medications Medication Sig Dispensed Refills Start Date [...] as of this encounter (statuses as of 09/29/2019) Active Problems Patient Care Coordination Note iol 12-18-17 at 7am Problem Noted Date Routine follow-up 09/01/2019 History of asthma 08/12/2019 Gestational hypertension 08/11/2019 Obesity (BMI 30-39.9) 08/10/2019 Susceptible to varicella (non-immune), currently pregn ant 12/20/2018 Overview: Address pp documented as of this encounter (statuses as of 09/29/2019) Resolved Problems Problem Noted Date Resolved Date [...] as of this encounter (statuses as of 09/29/2019) Immunizations Name Administration Dates Next Due HPV9 [...] 10/07/2019 Telemedicine Visit [facility] Thiago Lord, CNP [address] [facility] [place] [address] [phone] 11/23/2019 Nurse Visit [facility] Satellites Visit, [facility] Nurse Health Maintenance Due Date Last [...] Name Priority Date/Time Associated Diagnosis Comme nts CONSENT FOR CONTRACEPTION Routine 09/23/2019 12:01 AM CDT documented in this encounter Results Not on filedocumented in this encounter Insurance Payer Benefit Plan / Subscriber ID Effective Dates Phone Addre ss Type Group [place] xxxxxxxxx 2019-Present Medicaid HEALTH PLAN - HEALTH MANAGED MEDICAID documented as of this encounter Advance Directives Name Relationship Healthcare Agent Relationship Co mmunication Julieth Espinosa Mother Primary healthcare agent
--- OUTSIDE RECORDS SUMMARY | 2019-10-14 14:16 | XMS REPORT | Summary of Care ---
:2000 Author Organization [facility] Address [address] [place] [address] Care Team Providers Name Role Phone Doctor Unassigned, Name Insurance Hmo Unavailable Naheed Lord [facility] Primary Care Provider Reason for Visit Reason Comments CONTROL Well Woman Exam Encounter Details Date Type Department Care Team Description [facility]/23[facility] for female control (Primary Dx); Araseli Farfan [facility] Well woman exam; [address] Obesity (BMI 30-39.9); [place], [place] A Need for HPV vaccination [id number] [place] [address] [phone] Allergies No Known Allergiesdocumented as of this [...] file Gets together: Not on file Attends shinto service: Not on file Active member of [...] . Timeout performed by LINDA Vergara at 1785. Procedure: The patient is placed on the [...] clinic in 2 weeks. Nexplanon Lot #: [id number] Year removal date: 09/25 Patient palpated implant: Yes Loretta Romero RN - 09/23/2019 3:00 PM CDT19 year old presents to the clinic for wwe. 1) Previous BCM: none 2) Desired BCM: nexplanon 3) LMP: 09/04/2019 4) Last [place]: before baby 5) Last Pap: never Results: [...] and ER warnings discussed, verbalized understanding. Nexplanon (lot:[id number] exp:12/28/21)dispensed from clinic stock to provider for placement. LORETTA PRECIADO RN 09/23/2019 3:37 PM documented in this encounter Plan of Treatment Date Type Specialty Care Team Description 10/07/2019 Telemedicine Visit [facility] [address], [place] [address] [phone] 11/23/2019 Nurse Visit [facility] Satellites Visit, [facility] Nurse Name Type Priority Associated Diagnoses Date/Ti [...] Thu09/23/19 at 1645, Routine, Use approved by: DISPATCHER CHIEF OIL documented in this encounter Insurance Payer Benefit Plan / Subscriber ID Effective Dates Phone Addre ss Type Group [place] [place] xxxxxxxxx 2019-Present Medicaid HEALTH PLAN - HEALTH MANAGED MEDICAID documented as of this encounter Advance Directives Name Relationship Healthcare Agent Relationship Co mmunication Julieth Espinosa Mother Primary healthcare agent
[2019-10-14 15:01] LABS: Urine Blood 1+ (NEG); Urine Glucose NEGATIVE (NEG); Urine Protein 1+ (NEG); Urine Specific Gravity 1.015 (1.005-1.030)
[2019-10-14] MEDS ORDERED: ONDANSETRON 4 MG/2 ML VIAL ONE (15:07)
[2019-10-14] MEDS ORDERED: KETOROLAC 30 MG/ML INJ ONE (15:07)
[2019-10-14] MEDS ORDERED: NA CHLORIDE 0.9% 1,000 ML ONE (15:07)
[2019-10-14 15:43] LABS: Absolute Lymphocytes (CBC) 1.3 K/uL (0.7-4.9); Basophils % 0.4 % (0-1.3); Hematocrit 40.3 % (36.0-45.0); Lymphocytes % 12.4 % (15.3-44.8); MPV 9.9 fL (7.6-11.3); RBC Red Blood Cell Count 5.64 M/uL (3.86-4.86)
[2019-10-14 15:49] LABS: Urine Specific Gravity 1.015 (1.005-1.030)
[2019-10-14 16:02] LABS: Albumin 3.6 g/dL (3.4-5.0); Bilirubin Direct 0.2 mg/dL (0-0.2); Bilirubin Total 0.9 mg/dL (0.2-1.0); Potassium 3.4 mmol/L (3.5-5.1); Protein, Total 8.5 g/dL (6.4-8.2)
--- NOTE | 2019-10-14 16:02 | RAD REPORT ---
EXAM DESCRIPTION: CT - Stone Protocol - 10/14/2019 3:44 pm CLINICAL HISTORY: Flank pain. Right flank pain COMPARISON: No comparisons TECHNIQUE: Axial images were obtained without oral or IV contrast. Lack of contrast limits solid org an and vascular assessment. The [id number] spans the entirety of the system partially obscuring uppermost abdomen and lung bases. Coronal reformatted images were obtained and reviewed. All CT scans are performed using dose optimization technique as appropriate and may include automated exposure control or mA/KV adjustment according to patient size. FINDINGS: The lower lung fu are clear. Imaged portions of the liver and spleen show no suspicious findings on non-contrast imaging. The panc reas and adrenal glands are normal. No pathologic lymphadenopathy in the abdomen or pelvis. No urinary tract stones or obstructive uropathy. No bowel obstruction, free air, free fluid or abscess. Normal appendix noted. No significant bony abnormality. IMPRESSION: No urinary tract stones or obstructive uropathy.
--- NOTE | 2019-10-14 16:17 | ER ---
Nurse's Notes [facility] Name: Emily Rahman Age: 19 yrs Sex: Female : 2000 Arrival Date: 10/14/2019 Time: 14:13 Bed 20 Private MD: Diagnosis: Right Flank Pain, UTI Presentation: 10/13 14:21 Chief complaint: Patient states: Right flank pain x 2 days, denies urinary symptoms, jl7 denies N/V/D, denies cough, denies SOB. Pt's temp 102.7 in triage, pt denies knowledge of having a fever, denies chills. Coronavirus screen: Patient denies a cough. Patient denies shortness of breath or difficulty breathing. Patient reports a measured and/or subjective temperature greater than 100.4F. Patient denies travel on a cruise ship or to a country the [facility] currently lists as an affected area. Patient denies contact with known and/or suspected case of COVID-19. Ebola Screen: No symptoms or risks identified at this time. Initial Sepsis Screen: Does the patient meet any 2 criteria? Temp <36.0*C (96.8*F)) or > 38.3*C (100.9*F). HR > 90 bpm. Does the patient have a suspected source of infection? No. Patient's initial sepsis screen is negative. Risk Assessment: Do you want to hurt yourself or someone else? Patient reports no desire to harm self or others. Onset of symptoms was October 12, 2019. Care prior to arrival: None. 14:21 Method Of Arrival: Ambulatory [facility] 14:21 Acuity: [facility] 3 jl7 Triage Assessment: 14:27 General: Appears in no apparent distress. uncomfortable, Behavior is calm, cooperative, jl7 appropriate for age. Pain: Complains of pain in right flank Pain currently is 8 out of 10 on a pain scale. 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 - Social history:: Smoking status: Patient denies any tobacco usage or history of. Screenin:40 Abuse screen: Denies threats or abuse. Nutritional screening: No deficits noted. Tuberculosis screening: No symptoms or risk factors identified. Fall Risk None identified. Assessment: 14:45 General: Appears in no apparent distress. Behavior is calm, cooperative. Pain: Complains of pain in anterior aspect of right lateral abdomen Pain radiates to low back area Pain currently is 7 out of 10 on a pain scale. Pain began 2-3 days ago. Neuro: Level of Consciousness is awake, alert, Oriented to person, place, time. Cardiovascular: Heart tones S1 S2 Capillary refill < 3 seconds Patient's skin is warm and dry. Pulses are palpable in right radial artery, right dorsalis pedis artery, left radial artery and left dorsalis pedis artery. Respiratory: Airway is patent Respiratory effort is even, unlabored, Respiratory pattern is regular, symmetrical, Breath sounds are clear. GI: Abdomen is non-distended, Bowel sounds present X 4 quads. Abd is non tender. : No signs and/or symptoms were reported regarding the genitourinary system. Denies burning with urination, urinary frequency. EENT: No signs and/or symptoms were reported regarding the EENT system. Derm: No signs and/or symptoms reported regarding the dermatologic system. Musculoskeletal: No signs and/or symptoms reported regarding the musculoskeletal system. Vital Signs: 14:21 BP 179 / 77; Pulse 117; Resp 17; Temp 102.7; Pulse Ox 100% ; Weight 85.28 kg; Height 5 jl7 ft. 4 in. (162.56 cm); Pain 8/10; 16:13 BP 118 / 78; Pulse 106; Resp 16; Temp 99.9; Pulse Ox 100% ; ah 14:21 Body Mass Index 32.27 (85.28 kg, 162.56 cm) jl7 ED Course: 14:13 Patient arrived in ED. am2 14:16 Andrea Tapia MD is Attending Physician. kdr 14:26 Triage completed. jl7 14:27 Arm band placed on right wrist. jl7 14:56 Fátima Mendoza, RN is Primary Nurse. ah 15:28 Radiology exam delayed due to test not completed at this time. vm2 15:40 Patient has correct armband on for positive identification. Placed in gown. Bed in low ah position. Call light in reach. 15:[address] via wheelchair. 15:41 Inserted saline lock: 20 gauge in right antecubital area, using aseptic technique. 15:44 CT Stone Protocol In Process Unspecified. EDMS 16:40 No provider procedures requiring assistance completed. IV discontinued, intact, ah bleeding controlled, No redness/swelling at site. Pressure dressing applied. Administered Medications: 15:15 Drug: NS 0.9% 1000 ml Route: IV; Rate: 1 bolus; Site: right antecubital; 16:41 Follow up: Response: No adverse reaction; IV Status: Completed infusion; IV Intake: ah 1000ml 15:18 Drug: Zofran (Ondansetron) 4 mg Route: IVP; Site: right antecubital; 16:14 Follow up: Response: No adverse reaction; Nausea is decreased 15:30 Drug: TORadol - Ketorolac 15 mg Route: IVP; Site: right antecubital; 16:15 Follow up: Response: No adverse reaction; Pain is decreased ah Intake: 16:41 IV: 1000ml; Total: 1000ml. Outcome: 16:17 Discharge ordered by . kdr 16:39 Discharged to home ambulatory. ah 16:39 Condition: good 16:39 Discharge instructions given to patient, Instructed on discharge instructions, follow up and referral plans. medication usage, Demonstrated understanding of instructions, follow-up care, medications, Prescriptions given X 2. 16:42 Patient left the ED. Signatures: Dispatcher [employer] EDMS Andrea Tapia MD MD kdr Leal, Jahala RN RN [email or web address] Cara Beauchamp [facility] Fátima Mendoza, RN RN
--- NOTE | 2019-10-14 16:17 | EDPHYS ---
Physician Documentation [facility] Name: Emily Rahman Age: 19 yrs Sex: Female : 2000 Arrival Date: 10/14/2019 Time: 14:13 Bed 20 Private MD: ED Physician Andrea Tapia HPI: 10/13 16:45 This 19 yrs old Black Female presents to ER via Ambulatory with complaints of Flank kdr Pain. 16:45 The patient complains of pain in the Right flank pain. The pain does not radiate. kdr Onset: The symptoms/episode began/occurred gradually, 2 day(s) ago. Modifying factors: The symptoms are alleviated by nothing. the symptoms are aggravated by nothing. Associated signs and symptoms: Pertinent positives: nausea. Severity of pain: At its worst the pain was moderate in the emergency department the pain is unchanged. The patient has not experienced similar symptoms in the past. The patient has not recently seen a physician. 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 - Social history:: Smoking status: Patient denies any tobacco usage or history of. ROS: 16:45 Constitutional: Negative for fever, chills, and weight loss, Eyes: Negative for injury, kdr pain, redness, and discharge, Neck: Negative for injury, pain, and swelling, Cardiovascular: Negative for chest pain, palpitations, and edema, Respiratory: Negative for shortness of breath, cough, wheezing, and pleuritic chest pain, Abdomen/GI: Negative for abdominal pain, nausea, vomiting, diarrhea, and constipation, MS/Extremity: Negative for injury and deformity, Skin: Negative for injury, rash, and discoloration, Neuro: Negative for headache, weakness, numbness, tingling, and seizure activity. Psych: Negative for depression, anxiety, suicide ideation, homicidal ideation, and hallucinations, Allergy/Immunology: Negative for hives, rash, and allergies, Endocrine: Negative for neck swelling, polydipsia, polyuria, polyphagia, and marked weight changes. 16:45 Back: Positive for of the right mid back. Exam: 16:45 Constitutional: This is a well developed, well nourished patient who is awake, alert, kdr and in no acute distress. Head/Face: Normocephalic, atraumatic. Eyes: Pupils equal round and reactive to light, extra-ocular motions intact. Lids and lashes normal. Conjunctiva and sclera are non-icteric and not injected. Cornea within normal limits. Periorbital areas with no swelling, redness, or edema. Neck: Trachea midline, no thyromegaly or masses palpated, and no cervical lymphadenopathy. Supple, full range of motion without nuchal rigidity, or vertebral point tenderness. No Meningismus. Chest/axilla: Normal chest wall appearance and motion. Nontender with no deformity. No lesions are appreciated. Cardiovascular: Regular rate and rhythm with a normal S1 and S2. No gallops, murmurs, or rubs. Normal PMI, no JVD. No pulse deficits. Respiratory: Lungs have equal breath sounds bilaterally, clear to auscultation and percussion. No rales, rhonchi or wheezes noted. No increased work of breathing, no retractions or nasal flaring. Abdomen/GI: Soft, non-tender, with normal bowel sounds. No distension or tympany. No guarding or rebound. No evidence of tenderness throughout. Skin: Warm, dry with normal turgor. Normal color with no rashes, no lesions, and no evidence of cellulitis. 16:45 Abdomen/GI: Palpation: mild abdominal tenderness, in the posterior aspect of right lateral abdomen. Vital Signs: 14:21 BP 179 / 77; Pulse 117; Resp 17; Temp 102.7; Pulse Ox 100% ; Weight 85.28 kg; Height 5 jl7 ft. 4 in. (162.56 cm); Pain 8/10; 16:13 BP 118 / 78; Pulse 106; Resp 16; Temp 99.9; Pulse Ox 100% ; ah 14:21 Body Mass Index 32.27 (85.28 kg, 162.56 cm) jl7 MDM: 16:17 Patient medically screened. kdr 16:45 Data reviewed: vital signs, nurses notes, lab test result(s), radiologic studies. kdr Counseling: I had a detailed discussion with the patient and/or guardian regarding: the historical points, exam findings, and any diagnostic results supporting the discharge/admit diagnosis, lab results, radiology results, the need for outpatient follow up. 10/13 14:48 Order name: Urine Dipstick--Ancillary (enter results); Complete Time: 16:10 10/13 14:58 Order name: Basic Metabolic Panel; Complete Time: 16:10 [facility] 10/13 14:58 Order name: CBC with Diff; Complete Time: 16:11 [facility] 10/13 14:58 Order name: Creatinine for Radiology; Complete Time: 16:11 kdr 10/13 14:58 Order name: Hepatic Function; Complete Time: 16:11 [facility] 10/13 15:36 Order name: Urine --Ancillary (enter results); Complete Time: 16:11 10/13 14:58 Order name: IV Saline Lock; Complete Time: 15:39 kdr 10/13 14:58 Order name: Labs collected and sent; Complete Time: 15:39 kdr 10/13 14:58 Order name: Urine Dipstick-Ancillary (obtain specimen); Complete Time: 15:39 [facility] 10/13 14:58 Order name: Urine Test (obtain specimen); Complete Time: 15:39 [facility] 10/13 14:58 Order name: CT Stone Protocol; Complete Time: 16:11 kdr Administered Medications: 15:15 Drug: NS 0.9% 1000 ml Route: IV; Rate: 1 bolus; Site: right antecubital; ah 16:41 Follow up: Response: No adverse reaction; IV Status: Completed infusion; IV Intake: ah 1000ml 15:18 Drug: Zofran (Ondansetron) 4 mg Route: IVP; Site: right antecubital; ah 16:14 Follow up: Response: No adverse reaction; Nausea is decreased 15:30 Drug: TORadol - Ketorolac 15 mg Route: IVP; Site: right antecubital; ah 16:15 Follow up: Response: No adverse reaction; Pain is decreased Disposition: 10/14/19 16:17 Discharged to Home. Impression: Right Flank Pain, UTI. - Condition is Fair. - Discharge Instructions: Urinary Tract Infection, Adult, [id number], Flank Pain, [id number]. - Prescriptions for Ibuprofen 600 mg Oral Tablet - take 1 tablet by ORAL route every 6 hours As needed take with food; 30 tablet. Bactrim DS 800- 160 mg Oral Tablet - take 1 tablet by ORAL route every 12 hours for 3 days; 6 tablet. - Medication Reconciliation Form, Thank You Letter, Antibiotic Education form. - Follow up: Private Physician; When: 2 - 3 days; Reason: If symptoms return, Further diagnostic work-up, Recheck today's complaints, Continuance of care, Re-evaluation by your physician. - Problem is new. - Symptoms have improved. Signatures: Dispatcher [employer] EDIA Andrea Tapia MD MD [facility] Steve Greer RN RN jl7 Fátima Mendoza RN RN Corrections: (The following items were deleted from the chart) 16:42 16:17 10/14/2019 16:17 Discharged to Home. Impression: Right Flank Pain, UTI. Condition ah is Fair. Forms are Medication Reconciliation Form, Thank You Letter, Antibiotic Education, Prescription Opioid Use. Follow up: Private Physician; When: 2 - 3 days; Reason: If symptoms return, Further diagnostic work-up, Recheck today's complaints, Continuance of care, Re-evaluation by your physician. Problem is new. Symptoms have improved. kdr
[2019-10-14 16:51] VITALS: O2SAT 100
[2019-10-14 16:52] VITALS: BP 118/78; TEMP 99.9
== END 2019-10-14 16:42 | disposition home or self-care (01) ==
LOC: ER 14:07
DX: N39.0 Urinary tract infection, site not specified (principal)
CPT/HCPCS: 96361; 85025; 80048; 36415; 81025; 80076; 81003; 76377; 74176; 96375; 96374; 99284; J7030; J2405

== ENCOUNTER 2022-05-17 14:38 | Emergency (ER) | payer BC, OTHER ==
--- OUTSIDE RECORDS SUMMARY | 2022-05-17 14:44 | XMS REPORT | Continuity of Care Document ---
:2000 Author Organization [facility] t Address [address] [place] [address] [address] [place] [address] Care Team Providers Name Role Phone Visit, [place] Nurse Attending Clinician Unavailable Theresa Salgado Attending Clinician [phone] THERESA LORD Attending Clinician Unavailable Doctor Unassigned, [place] Attending Clinician Unavailable Sabrina Vickers MD Attending Clinician Ami Paige Attending Clinician Ultrasound, [place] Attending Clinician Unavailable Radha Barnett Attending Clinician Sabrina Vickers MD Admitting Clinician Payers Payer Name Policy Type Policy Number Effective Date Expiration Date Alexa RODRIGUEZ [id number] 2019 HEALTH 00:00:00 Problems Condition Condition Condition Status Onset Resolution Last Treating Co mments Source Name Details Category Date Date Treatment Clinician Date Nexplanon Nexplanon Disease Active 2020-[address] in place 5-06 ity of 00:00: [place] [id number] Medical Branch Other Other Disease Active 2020-0 Univers general general 5-06 ity of counseling [place] and advice and advice 00 [facility] dical for for Branch contracept contracept margie margie management management Routine Routine Disease Active 2020-0 Univers 2-27 it y of follow-up follow-up 00:00: [facility] Disease Active 2020-0 Univers (spontaneo (spontaneo 2-07 it y of [place] vaginal [place] vaginal [place] delivery[place] 00 [facility] Branch Single Single Disease Active 2020-0 Univers live live 2-07 it y of 00:00: [address] History of History of Disease Active 2020-0 U nivers asthma asthma 2-07 ity of 00:00: [address] Gestationa Gestationa Disease Active 2020-0 U nivers l l 2-06 ity of hypertensi hypertensi [place] [facility] Obesity Obesity Disease Active 2019- Univers (BMI (BMI 2-05 ity of 30-39.9) 30-39.9) 00:00: [address] 39 weeks 39 weeks Disease Active 2019- Unive rs gestation gestation 2-05 ity of of of 00:00: [place] 00 [facility] Susceptibl Susceptibl Disease Active Overview : Univers e to e to 6-17 Address ity of varicella varicella 00:00: pp Karlee holden (non-immun (non-immun 00 Me dical e), e), Branch currently currently Multiparit Multiparit Disease Active U nivers y y 6-14 ity of 00:00: [address] Obesity Obesity Disease Active 2016-07 Univers affecting affecting 0-18 [place] [facility] Supervisio Supervisio Disease Active 2016-07 U nivers n of high n of high 0-18 ity of risk risk 00:00: [place] , , 00 Me dical antepartum antepartum Br anch Allergies, Adverse Reactions, Alerts Allergy Allergy Status Severity Reaction(s) Onset Inactive Treating Comm ents Source Name Type Date Date Clinician NO KNOWN Drug Active Univers ALLERGIE Class ity of S [facility] Social History Social Habit Start Date Stop Date Quantity Comments Source ASSERTION 2018-11-24 University of 00:00:00 [facility] Exposure to Not sure [facility] SARS-CoV-2 [facility] (event) [place] Sex Assigned At Universit y of [facility] Tobacco use and 2020-02-20 2020-02-20 Never used Universit y of exposure 00:00:00 00:00:00 [facility] Alcohol intake 2020-02-20 2020-02-20 Current University of 00:00:00 00:00:00 non-drinker of [facility] alcohol (finding) Branch Alcohol Comment 2018-12-17 2018-12-17 last sexual Universi ty of 00:00:00 00:00:00 intercourse [facility] 12/09/2018 Branch Smoking Status Start Date Stop Date Source Never smoker [facility] Branch Medications Ordered Filled Start Stop Current Ordering Indication Dosage Frequency Signature Comments Components Source Medication Medication Date Date Medication? Clinician (SIG) Name Name etonogestre 2020- No [id number] 68mg Univers l -22 09-20 ity of (NEXPLANON) 21:45: 20:45 [place] implant 68 00 :00 Medical mg Branch etonogestre 2020- No [id number] 68mg 68 mg, Univers l 09-22-20 Subdermal, ity of (NEXPLANON) 21:45: 20:45 ONCE NOW, [place] implant 68 00 :00 1 dose, Medica l mg [facility] 09/23/19 at 1645, Routine
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
Use approved by: STRAW HAT WASHER OPERATOR varicella Yes .5mL 0.5 mL, Unive rs virus 208 Subcutaneo ity of vaccine 13:26: , [place] live 45 ONCE-PRIOR Medical (VARIVAX TO Branch (PF)) DISCHARGE, injection 1 dose, 0.5 mL Starting 08/13/19 at 0726, Until Discontinu ed, Routine, Give vaccine prior to discharge ferrous Yes 325mg 325 mg, Univer s sulfate 2-07 Oral, ity of tablet 325 15:00: DAILY, [place] mg 00 First dose Medical on Thu Branch 08/12/19 at 0900, Until Discontinu ed, Routine ibuprofen Yes 600mg 600 mg, Univ ers (IBU) 2-07 Oral, ity of tablet 600 02:45: Q6HPRN, [place] mg 55 Starting Medical [place] 08/11/19 Branch at 2044, Until Discontinu ed, Routine, Pain (scale 4-6) acetaminoph 2020-0 Yes 650mg 650 mg, Un yanira en 2- Oral, ity of (TYLENOL) 02:45: Q6HPRN, [place] tablet 650 55 Starting Medic al mg [place] 08/11/19 Branch at 2044, Until Discontinu ed, Routine, Pain (scale 1-3) diphenhydrA 2020-0 Yes 25mg 25 mg, Univ ers MINE 2- Oral, ity of (BENADRYL) 02:45: Q6HPRN, [place] tablet 25 55 Starting Medica l mg [place] 08/11/19 Branch at 2044, Until Discontinu ed, Routine, Sleep, Itching ondansetron 2020-0 Yes 4mg 4 mg, Slow Univers (ZOFRAN 2- IV Push, ity of (PF)) 02:45: Q8HPRN, [place] injection 4 55 Starting Medi surya mg [place] 08/11/19 Branch at 2044, Until Discontinu ed, Routine, Nausea and Vomiting (N/V) simethicone 2020-0 Yes 160mg 160 mg, Un yanira (GAS RELIEF 2- Oral, ity of (SIMETHICON 02:45: PC+HSPRN, [place] E)) 55 Starting Medical chewable [place] 08/11/19 Branc h tablet 160 at 2044, mg Until Discontinu ed, Routine, Gas docusate 2020-0 Yes 240mg 240 mg, Unive rs calcium 2- Oral, ity of (SURFAK) 02:45: QDAILYPRN, [place] capsule 240 55 Starting Medi surya mg [place] 08/11/19 Branch at 2044, Until Discontinu ed, Routine, Constipati on magnesium 2020-0 Yes 30mL 30 mL, Univer s hydroxide 2-07 Oral, ity of (MILK OF 02:45: QDAILYPRN, [place] MAGNESIA) 55 Starting Medica l 400 mg/5 mL [place] 08/11/19 Br anch suspension at 2044, 30 mL Until Discontinu ed, Routine, Constipati on benzocaine- 2020-0 Yes Topical, Un yanira menthol 2-07 PRN, ity of (DERMOPLAST 02:45: [place] ) 20-0.5 % 55 [place] 08/11/19 Med ical topical at 2044, Branch spray Until Discontinu ed, Routine, Perineum discomfort docusate 2020-0 Yes [id number] 240mg Take 1 Un yanira calcium 240 2-07 capsule by it y of mg capsule 00:00: mouth once [place] 00 daily as Medical needed for Branch Constipati on. ibuprofen 2020-0 Yes [id number] 600mg Take 1 U nivers 600 mg 2-07 tablet by ity of tablet 00:00: mouth [place] 00 every 6 Medical (six) Branch hours as needed (Pain). Take with food or milk. Iron Fum & 2020-0 Yes [id number] 1{capsu Take 1 Univers P-FA-Vit B 2-07 le} capsule by ity of & C No.9 00:00: mouth [place] (INTEGRA 00 daily. Medical PLUS) 125 Branch mg iron- 1 mg Cap docusate 2020-0 Yes [id number] 240mg Take 1 Un yanira calcium 240 2-07 capsule by it y of mg capsule 00:00: mouth once [place] 00 daily as Medical needed for Branch Constipati on. ibuprofen 2020-0 Yes [id number] 600mg Take 1 U nivers 600 mg 2-07 tablet by ity of tablet 00:00: mouth [place] 00 every 6 Medical (six) Branch hours as needed (Pain). Take with food or milk. Iron Fum & 2020-0 Yes [id number] 1{capsu Take 1 Univers P-FA-Vit B 2-07 le} capsule by ity of & C No.9 00:00: mouth [place] (INTEGRA 00 daily. Medical PLUS) 125 Branch mg iron- 1 mg Cap docusate 2020-0 Yes [id number] 240mg Take 1 Un yanira calcium 240 2-07 capsule by it y of mg capsule 00:00: mouth once [place] 00 daily as Medical needed for Branch Constipati on. ibuprofen 2020-0 Yes [id number] 600mg Take 1 U nivers 600 mg 2-07 tablet by ity of tablet 00:00: mouth [place] 00 every 6 Medical (six) Branch hours as needed (Pain). Take with food or milk. Iron Fum & 2020-0 Yes [id number] 1{capsu Take 1 Univers P-FA-Vit B 2-07 le} capsule by ity of & C No.9 00:00: mouth [place] (INTEGRA 00 daily. Medical PLUS) 125 Branch mg iron- 1 mg Cap docusate 2020-0 Yes [id number] 240mg Take 1 Un yanira calcium 240 2-07 capsule by it y of mg capsule 00:00: mouth once [place] 00 daily as Medical needed for Branch Constipati on. ibuprofen 2020-0 Yes [id number] 600mg Take 1 U nivers 600 mg 2-07 tablet by ity of tablet 00:00: mouth [place] 00 every 6 Medical (six) Branch hours as needed (Pain). Take with food or milk. Iron Fum & 2020-0 Yes [id number] 1{capsu Take 1 Univers P-FA-Vit B 2-07 le} capsule by ity of & C No.9 00:00: mouth [place] (INTEGRA 00 daily. Medical PLUS) 125 Branch mg iron- 1 mg Cap docusate 2020-0 Yes [id number] 240mg Take 1 Un yanira calcium 240 2-07 capsule by it y of mg capsule 00:00: mouth once [place] 00 daily as Medical needed for Branch Constipati on. ibuprofen 2020-0 Yes [id number] 600mg Take 1 U nivers 600 mg 2-07 tablet by ity of tablet 00:00: mouth [place] 00 every 6 Medical (six) Branch hours as needed (Pain). Take with food or milk. Iron Fum & 2020-0 Yes [id number] 1{capsu Take 1 Univers P-FA-Vit B 2-07 le} capsule by ity of & C No.9 00:00: mouth [place] (INTEGRA 00 daily. Medical PLUS) 125 Branch mg iron- 1 mg Cap docusate 2020-0 Yes [id number] 240mg Take 1 Un yanira calcium 240 2-07 capsule by it y of mg capsule 00:00: mouth once [place] 00 daily as Medical needed for Branch Constipati on. ibuprofen 2020-0 Yes [id number] 600mg Take 1 U nivers 600 mg 2-07 tablet by ity of tablet 00:00: mouth [place] 00 every 6 Medical (six) Branch hours as needed (Pain). Take with food or milk. Iron Fum & 2020-0 Yes [id number] 1{capsu Take 1 Univers P-FA-Vit B 2-07 le} capsule by ity of & C No.9 00:00: mouth [place] (INTEGRA 00 daily. Medical PLUS) 125 Branch mg iron- 1 mg Cap docusate 2020-0 Yes [id number] 240mg Take 1 Un yanira calcium 240 2-07 capsule by it y of mg capsule 00:00: mouth once [place] 00 daily as Medical needed for Branch Constipati on. ibuprofen 2020-0 Yes [id number] 600mg Take 1 U nivers 600 mg 2-07 tablet by ity of tablet 00:00: mouth [place] 00 every 6 Medical (six) Branch hours as needed (Pain). Take with food or milk. Iron Fum & 2020-0 Yes [id number] 1{capsu Take 1 Univers P-FA-Vit B 2-07 le} capsule by ity of & C No.9 00:00: mouth [place] (INTEGRA 00 daily. Medical PLUS) 125 Branch mg iron- 1 mg Cap docusate 2020-0 Yes [id number] 240mg Take 1 Un yanira calcium 240 2-07 capsule by it y of mg capsule 00:00: mouth once [place] 00 daily as Medical needed for Branch Constipati on. ibuprofen 2020-0 Yes [id number] 600mg Take 1 U nivers 600 mg 2-07 tablet by ity of tablet 00:00: mouth [place] 00 every 6 Medical (six) Branch hours as needed (Pain). Take with food or milk. Iron Fum & 2020-0 Yes [id number] 1{capsu Take 1 Univers P-FA-Vit B 2-07 le} capsule by ity of & C No.9 00:00: mouth [place] (INTEGRA 00 daily. Medical PLUS) 125 Branch mg iron- 1 mg Cap docusate 2020-0 Yes [id number] 240mg Take 1 Un yanira calcium 240 2-07 capsule by it y of mg capsule 00:00: mouth once [place] 00 daily as Medical needed for Branch Constipati on. ibuprofen 2020-0 Yes [id number] 600mg Take 1 U nivers 600 mg 2-07 tablet by ity of tablet 00:00: mouth [place] 00 every 6 Medical (six) Branch hours as needed (Pain). Take with food or milk. Iron Fum & 2020-0 Yes [id number] 1{capsu Take 1 Univers P-FA-Vit B 2-07 le} capsule by ity of & C No.9 00:00: mouth [place] (INTEGRA 00 daily. Medical PLUS) 125 Branch mg iron- 1 mg Cap docusate 2020-0 Yes [id number] 240mg Take 1 Un yanira calcium 240 2-07 capsule by it y of mg capsule 00:00: mouth once [place] 00 daily as Medical needed for Branch Constipati on. ibuprofen 2019-0 Yes [id number] 600mg Take 1 U nivers 600 mg 2-07 tablet by ity of tablet 00:00: mouth [place] 00 every 6 Medical (six) Branch hours as needed (Pain). Take with food or milk. Iron Fum & 2020-0 Yes [id number] 1{capsu Take 1 Univers P-FA-Vit B 2-07 le} capsule by ity of & C No.9 00:00: mouth [place] (INTEGRA 00 daily. Medical PLUS) 125 Branch mg iron- 1 mg Cap amnioinfusi 2020- No 1000mL at 750 U nivers on IV 206 02-06 mL/hr, ity of infusion 20:00: 20:06 Intrauteri [place] via GRAVITY 00 :00 ne, ONCE, Med ical 0.9 NaCL 1 dose, Branch 1,000 mL Ze[place] 08/11/19 at 1400, RADHA
In fuse via gravity 750 ml over 1 hour.&nbsp ; Once 750 mL has been infused, the infusion may be dicsontinu ed or decreased to 100 mL/hr until the liter is complete.& nbsp;&nbsp ;Notify Automatic Cigar Wrapper Tender if uterine resting tone exceeds 25 mmHg at any time during the amnioinfus ion. Obst etrics (KARINA) Aminoinfus ion Orders
lactated 2019-2019- No 500mL at 999 Unive rs ringers IV 2 02-06 mL/hr, 500 it y of infusion 17:45: 16:45 mL, IV [place] 500 mL 00 :00 Infusion, Medical ONCE, 1 Branch dose, Zeina 08/11/19 at 1145, Routine ondansetron 2019- No 4mg 4 mg, Slow Univers (ZOFRAN 2 02-06 IV Push, ity of (PF)) 08:15: 07:12 ONCE, 1 [place] injection 4 00 :00 dose, [place] Med ical mg 08/11/19 at Branch 0215, Routine D5W-LR IV 2020-0 2020- No 1000mL at 125 Uni vers infusion 08-11-07 mL/hr, IV ity o f 1,000 mL 04:00: 02:46 Infusion, [place] as 00 :09 CONTINUOUS Medical , Starting Branch 08/10/19 at 2200, Until Zeina 08/11/19 at 204, Routine LR 1000 mL 2019-0 2020- No 2mU/min 2 Uni vers + oxytocin 08-11 julio-unit it y of 20 units IV 03:55: 02:46 s/min (6 [place] Solution 08 :09 mL/hr), at Medic al 6 mL/hr, Branch IV Infusion, TITRATE, Starting 08/10/19 at 2155, Until [place] 08/11/19 at 2045, RADHA, Oxytocin Induction / Augmentati on of Labor. sodium 2019-0 2020- No 30mL 30 mL, Univers citrate-cit 08-11 Oral, ity of jaycee acid 03:51: 16:38 PRE-PROCED [place] (BICITRA) 29 :00 URE ONCE, Medic al 500-334 1 dose, Branch mg/5 mL Starting solution 30 Thu08/10/19 mL at 215, Until Discontinu ed, Routine, Surgery/Pr ocedure ferrous 2018-0 Yes [id number] 325mg Take 1 Un yanira sulfate 325 6-07 tablet by ity of mg (65 mg 00:00: mouth 2 [place] iron) 00 (two) Medical tablet times Branch daily. ascorbic 2018-0 Yes [id number] 500mg Take 1 U nivers acid, 6-07 tablet by ity of vitamin C, 00:00: mouth 3 [place] 500 mg 00 (three) Medical tablet times Branch daily. ferrous 2018-0 Yes [id number] 325mg Take 1 Un yanira sulfate 325 6-07 tablet by ity of mg (65 mg 00:00: mouth 2 [place] iron) 00 (two) Medical tablet times Branch daily. ascorbic 2018-0 Yes [id number] 500mg Take 1 U nivers acid, 6-07 tablet by ity of vitamin C, 00:00: mouth 3 [place] 500 mg 00 (three) Medical tablet times Branch daily. ferrous 2018-0 Yes [id number] 325mg Take 1 Un yanira sulfate 325 6-07 tablet by ity of mg (65 mg 00:00: mouth 2 [place] iron) 00 (two) Medical tablet times Branch daily. ascorbic 2018-0 Yes [id number] 500mg Take 1 U nivers acid, 6-07 tablet by ity of vitamin C, 00:00: mouth 3 [place] 500 mg 00 (three) Medical tablet times Branch daily. ferrous 2018-0 Yes [id number] 325mg Take 1 Un yanira sulfate 325 6-07 tablet by ity of mg (65 mg 00:00: mouth 2 [place] iron) 00 (two) Medical tablet times Branch daily. ascorbic 2018-0 Yes [id number] 500mg Take 1 U nivers acid, 6-07 tablet by ity of vitamin C, 00:00: mouth 3 [place] 500 mg 00 (three) Medical tablet times Branch daily. ferrous 2017-0 Yes [id number] 325mg Take 1 Un yanira sulfate 325 6-07 tablet by ity of mg (65 mg 00:00: mouth 2 [place] iron) 00 (two) Medical tablet times Branch daily. ascorbic 2017-0 Yes [id number] 500mg Take 1 U nivers acid, 6-07 tablet by ity of vitamin C, 00:00: mouth 3 [place] 500 mg 00 (three) Medical tablet times Branch daily. ferrous 2017-0 Yes [id number] 325mg Take 1 Un yanira sulfate 325 6-07 tablet by ity of mg (65 mg 00:00: mouth 2 [place] iron) 00 (two) Medical tablet times Branch daily. ascorbic 2017-0 Yes [id number] 500mg Take 1 U nivers acid, 6-07 tablet by ity of vitamin C, 00:00: mouth 3 [place] 500 mg 00 (three) Medical tablet times Branch daily. ferrous 2018-0 Yes [id number] 325mg Take 1 Un yanira sulfate 325 6-07 tablet by ity of mg (65 mg 00:00: mouth 2 [place] iron) 00 (two) Medical tablet times Branch daily. ascorbic 2018-0 Yes [id number] 500mg Take 1 U nivers acid, 6-07 tablet by ity of vitamin C, 00:00: mouth 3 [place] 500 mg 00 (three) Medical tablet times Branch daily. ferrous 2018-0 Yes [id number] 325mg Take 1 Un yanira sulfate 325 6-07 tablet by ity of mg (65 mg 00:00: mouth 2 [place] iron) 00 (two) Medical tablet times Branch daily. ascorbic 2017- Yes [id number] 500mg Take 1 U nivers acid, 6-07 tablet by ity of vitamin C, 00:00: mouth 3 [place] 500 mg 00 (three) Medical tablet times Branch daily. ferrous 2017-0 Yes [id number] 325mg Take 1 Un yanira sulfate 325 6-07 tablet by ity of mg (65 mg 00:00: mouth 2 [place] iron) 00 (two) Medical tablet times Branch daily. ascorbic 2017-0 Yes [id number] 500mg Take 1 U nivers acid, 6-07 tablet by ity of vitamin C, 00:00: mouth 3 [place] 500 mg 00 (three) Medical tablet times Branch daily. ferrous 2017- Yes [id number] 325mg Take 1 Un yanira sulfate 325 6-07 tablet by ity of mg (65 mg 00:00: mouth 2 [place] iron) 00 (two) Medical tablet times Branch daily. ascorbic 2017- Yes [id number] 500mg Take 1 U nivers acid, 6-07 tablet by ity of vitamin C, 00:00: mouth 3 [place] 500 mg 00 (three) Medical tablet times Branch daily. ferrous 2017- Yes [id number] 325mg Take 1 Un yanira sulfate 325 6-07 tablet by ity of mg (65 mg 00:00: mouth 2 [place] iron) 00 (two) Medical tablet times Branch daily. ascorbic 2017- Yes [id number] 500mg Take 1 U nivers acid, 6-07 tablet by ity of vitamin C, 00:00: mouth 3 [place] 500 mg 00 (three) Medical tablet times Branch daily. ferrous 2020- No [id number] 325mg Take 1 U nivers sulfate 325 6-07 02-07 tablet by it y of mg (65 mg 00:00: 00:00 mouth 2 [place] iron) 00 :00 (two) Medical tablet times Branch daily. ascorbic 2020- No [id number] 500mg Take 1 Univers acid, 6-07 02-07 tablet by ity of vitamin C, 00:00: 00:00 mouth 3 [place] 500 mg 00 :00 (three) Medical tablet times Branch daily. doxylamine- 2016-07 Yes [id number] 2{tbl} Take 2 Univers pyridoxine, 1-15 tablets by it y of vit B6, 00:00: mouth at [facility]) 00 bedtime. Medic al 10-10 mg Branch per tablet doxylamine2016-07 Yes [id number] 2{tbl} Take 2 Univers pyridoxine, 1-15 tablets by it y of vit B6, 00:00: mouth at [facility]) 00 bedtime. Medic al 10-10 mg Branch per tablet doxylamine2016-07 Yes [id number] 2{tbl} Take 2 Univers pyridoxine, 1-15 tablets by it y of vit B6, 00:00: mouth at [facility]) 00 bedtime. Medic al 10-10 mg Branch per tablet doxylamine2016-07 Yes [id number] 2{tbl} Take 2 Univers pyridoxine, 1-15 tablets by it y of vit B6, 00:00: mouth at [facility] 00 bedtime. Medic al 10-10 mg Branch per tablet doxylamine2016-07 Yes [id number] 2{tbl} Take 2 Univers pyridoxine, 1-15 tablets by it y of vit B6, 00:00: mouth at [facility]) 00 bedtime. Medic al 10-10 mg Branch per tablet doxylamine2016-07 Yes [id number] 2{tbl} Take 2 Univers pyridoxine, 1-15 tablets by it y of vit B6, 00:00: mouth at [facility] 00 bedtime. Medic al 10-10 mg Branch per tablet doxylamine2016-07 Yes [id number] 2{tbl} Take 2 Univers pyridoxine, 1-15 tablets by it y of vit B6, 00:00: mouth at [facility]) 00 bedtime. Medic al 10-10 mg Branch per tablet doxylamine2016-07 Yes [id number] 2{tbl} Take 2 Univers pyridoxine, 1-15 tablets by it y of vit B6, 00:00: mouth at [place] ([facility]) 00 bedtime. Medic al 10-10 mg Branch per tablet doxylamine2016-07 Yes [id number] 2{tbl} Take 2 Univers pyridoxine, 1-15 tablets by it y of vit B6, 00:00: mouth at [place] ([facility]) 00 bedtime. Medic al 10-10 mg Branch per tablet doxylamine- 2016-07 Yes [id number] 2{tbl} Take 2 Univers pyridoxine, 1-15 tablets by it y of vit B6, 00:00: mouth at [place] ([facility]) 00 bedtime. Medic al 10-10 mg Branch per tablet doxylamine- 2016-07 Yes [id number] 2{tbl} Take 2 Univers pyridoxine, 1-15 tablets by it y of vit B6, 00:00: mouth at [place] ([facility]) 00 bedtime. Medic al 10-10 mg Branch per tablet doxylamine- 2016-07 2020- No [id number] 2{tbl} Take 2 Univers pyridoxine, 1-15 02-07 tablets by i ty of vit B6, 00:00: 00:00 mouth at [place] ([facility]) 00 :00 bedtime. Medic al 10-10 mg Branch per tablet PNV 67-iron 2016-07 Yes [id number] 1{each} Take 1 Univers ps-folate 0-18 Each by ity of no.1-dha 00:00: mouth [place] (VITAFOL 00 daily. Medical ULTRA) 29 Branch mg iron- 1 mg-200 mg Cap PNV 67-iron 2016-07 Yes [id number] 1{each} Take 1 Univers ps-folate 0-18 Each by ity of no.1-dha 00:00: mouth [place] (VITAFOL 00 daily. Medical ULTRA) 29 Branch mg iron- 1 mg-200 mg Cap PNV 67-iron 2016-07 Yes [id number] 1{each} Take 1 Univers ps-folate 0-18 Each by ity of no.1-dha 00:00: mouth [place] (VITAFOL 00 daily. Medical ULTRA) 29 Branch mg iron- 1 mg-200 mg Cap PNV 67-iron 2016-07 Yes [id number] 1{each} Take 1 Univers ps-folate 0-18 Each by ity of no.1-dha 00:00: mouth [place] (VITAFOL 00 daily. Medical ULTRA) 29 Branch mg iron- 1 mg-200 mg Cap PNV 67-iron 2016-07 Yes [id number] 1{each} Take 1 Univers ps-folate 0-18 Each by ity of no.1-dha 00:00: mouth [place] (VITAFOL 00 daily. Medical ULTRA) 29 Branch mg iron- 1 mg-200 mg Cap PNV 67-iron 2016-07 Yes [id number] 1{each} Take 1 Univers ps-folate 0-18 Each by ity of no.1-dha 00:00: mouth [place] (VITAFOL 00 daily. Medical ULTRA) 29 Branch mg iron- 1 mg-200 mg Cap PNV 67-iron 2016-07 Yes [id number] 1{each} Take 1 Univers ps-folate 0-18 Each by ity of no.1-dha 00:00: mouth [place] (VITAFOL 00 daily. Medical ULTRA) 29 Branch mg iron- 1 mg-200 mg Cap PNV 67-iron 2016-07 Yes [id number] 1{each} Take 1 Univers ps-folate 0-18 Each by ity of no.1-dha 00:00: mouth [place] (VITAFOL 00 daily. Medical ULTRA) 29 Branch mg iron- 1 mg-200 mg Cap PNV 67-iron 2016-07 Yes [id number] 1{each} Take 1 Univers ps-folate 0-18 Each by ity of no.1-dha 00:00: mouth [place] (VITAFOL 00 daily. Medical ULTRA) 29 Branch mg iron- 1 mg-200 mg Cap PNV 67-iron 2016-07 Yes [id number] 1{each} Take 1 Univers ps-folate 0-18 Each by ity of no.1-dha 00:00: mouth [place] (VITAFOL 00 daily. Medical ULTRA) 29 Branch mg iron- 1 mg-200 mg Cap PNV 67-iron 2016-07 Yes [id number] 1{each} Take 1 Univers ps-folate 0-18 Each by ity of no.1-dha 00:00: mouth [place] (VITAFOL 00 daily. Medical ULTRA) 29 Branch mg iron- 1 mg-200 mg Cap PNV 67-iron 2016-07 2020- No [id number] 1{each} Take 1 Univers ps-folate 0-18 02-07 Each by ity of no.1-dha 00:00: 00:00 mouth [place] (VITAFOL 00 :00 daily. Medical ULTRA) 29 Branch mg iron- 1 mg-200 mg Cap Immunizations Ordered Filled Immunization Date Status Comments [facility] e Immunization Name Name HPV9 2020-02-20 Completed [facility] 00:00:00 [facility] HPV9 2019-09-23 Completed University of 00:00:00 [place] [facility] HPV9 2019-09-23 Completed University of 00:00:00 [place] [facility] HPV9 2019-09-23 Completed University of 00:00:00 [place] [facility] HPV9 2019-09-23 Completed University of 00:00:00 [place] [facility] HPV9 2019-09-23 Completed University of 00:00:00 [place] [facility] HPV9 2019-09-23 Completed University of 00:00:00 [place] [facility] HPV9 2019-09-23 Completed University of 00:00:00 [place] [facility] Tdap 2019-05-30 Completed University of 00:00:00 [place] [facility] Tdap 2019-05-30 Completed University of 00:00:00 [place] [facility] Tdap 2019-05-30 Completed University of 00:00:00 [place] [facility] Tdap 2019-05-30 Completed University of 00:00:00 [place] [facility] Tdap 2019-05-30 Completed University of 00:00:00 [place] [facility] Tdap 2019-05-30 Completed University of 00:00:00 [facility] Tdap 2019-05-30 Completed [facility] 00:00:00 [facility] Tdap 2019-05-30 Completed [facility] 00:00:00 [facility] Tdap 2019-05-30 Completed [facility] 00:00:00 [facility] Tdap 2019-05-30 Completed [facility] 00:00:00 [facility] Tdap 2019-05-30 Completed [facility] 00:00:00 [facility] TDAP 2019-05-30 Completed [facility] 00:00:00 [facility] TDAP 2019-05-30 Completed [facility] 00:00:00 [facility] Tdap 2017-10-13 Completed [facility] 00:00:00 [facility] Tdap 2017-10-13 Completed [facility] 00:00:00 [facility] Tdap 2017-10-13 Completed [facility] 00:00:00 [facility] Tdap 2017-10-13 Completed [facility] 00:00:00 [facility] Tdap 2017-10-13 Completed [facility] 00:00:00 [facility] Tdap 2017-10-13 Completed [facility] 00:00:00 [facility] Tdap 2017-10-13 Completed [facility] 00:00:00 [facility] Tdap 2017-10-13 Completed [facility] 00:00:00 [facility] Tdap 2017-10-13 Completed University of 00:00:00 [facility] Tdap 2017-10-13 Completed [facility] 00:00:00 [facility] Tdap 2017-10-13 Completed [facility] 00:00:00 [facility] Tdap 2017-10-13 Completed [facility] 00:00:00 [facility] TDAP 2017-10-13 Completed University [facility] 00:00:00 [facility] TDAP 2017-10-13 Completed [facility] 00:00:00 [facility] Tdap 2017-10-13 Completed [facility] 00:00:00 [facility] Tdap 2017-10-13 Completed [facility] 00:00:00 [facility] Tdap 2017-10-13 Completed [facility] of 00:00:00 [facility] Tdap 2017-10-13 Completed [facility] of 00:00:00 [facility] Tdap 2017-10-13 Completed [facility] 00:00:00 [facility] Tdap 2017-10-13 Completed [facility] 00:00:00 [facility] Tdap 2017-10-13 Completed [facility] 00:00:00 [facility] Vital Signs Vital Name Observation Time Observation Value Comments Source Systolic blood 2020-02-20 18:45:00 109 mm[Hg] Univer sity of pressure [facility] Diastolic blood 2020-02-20 18:45:00 73 mm[Hg] Unive rsity of [facility] Heart rate 2020-02-20 18:45:00 77 /min [facility] Body temperature 2020-02-20 18:45:00 36.89 Isa [facility] rate 2020-02-20 18:45:00 16 /min [facility] Body height 2020-02-20 18:45:00 162.6 cm [facility] Body weight 2020-02-20 18:45:00 91.768 kg [facility] BMI 2020-02-20 18:45:00 34.73 kg/m2 [facility] Systolic blood 2019-09-23 20:15:00 125 mm[Hg] Univer sity of pressure [facility] Diastolic blood 2019-09-23 20:15:00 77 mm[Hg] Unive rsity of pressure [facility] Heart rate 2019-09-23 20:15:00 78 /min [facility]i ty [facility] Body temperature 2019-09-23 20:15:00 37.11 Isa Univ ersity of [facility] Respiratory rate 2019-09-23 20:15:00 16 /min Univ ersity of [facility] Body height 2019-09-23 20:15:00 162.6 cm [facility] Body weight 2019-09-23 20:15:00 85.475 kg [facility] BMI 2019-09-23 20:15:00 32.35 kg/m2 [facility] Systolic blood 2019-09-01 16:15:00 114 mm[Hg] Univer sity of pressure [facility] Diastolic blood 2019-09-01 16:15:00 68 mm[Hg] Unive rsity of pressure [facility] Heart rate 2019-09-01 16:15:00 74 /min [facility] Body temperature 2019-09-01 16:15:00 36.72 Isa Univ ersity of [facility] Respiratory rate 2019-09-01 16:15:00 16 /min Univ ersity of [facility] Body height 2019-09-01 16:15:00 162.6 cm [facility] Body weight 2019-09-01 16:15:00 85.333 kg [facility] BMI 2019-09-01 16:15:00 32.29 kg/m2 [facility] Systolic blood 2019-08-18 21:56:00 124 mm[Hg] Univer sity of pressure [facility] Diastolic blood 2019-08-18 21:56:00 80 mm[Hg] Unive rsity of pressure [facility] Heart rate 2019-08-18 21:56:00 92 /min [facility] Body temperature 2019-08-18 21:56:00 37.22 Isa Univ ersity of [facility] Respiratory rate 2019-08-18 21:56:00 16 /min Univ ersity of [facility] Body height 2019-08-18 21:56:00 160 cm [facility] Body weight 2019-08-18 21:56:00 86.592 kg [facility] BMI 2019-08-18 21:56:00 33.82 kg/m2 [facility] Systolic blood 2019-08-13 14:00:00 119 mm[Hg] Univer sity of pressure [facility] Diastolic blood 2019-08-13 14:00:00 76 mm[Hg] Unive rsity of pressure [facility] Heart rate 2019-08-13 14:00:00 74 /min Universi ty of [facility] Body temperature 2019-08-13 14:00:00 37 Isa Univ ersity of [facility] Respiratory rate 2019-08-13 14:00:00 18 /min Univ ersity of [facility] Oxygen saturation in 2019-08-13 14:00:00 99 /min University of Arterial blood by [facility] Pulse oximetry Branch Body height 2019-08-11 02:00:00 162 cm Universi ty of [facility] Body weight 2019-08-11 02:00:00 94.348 kg [facility] BMI 2019-08-11 02:00:00 35.95 kg/m2 Universi ty of [facility] Systolic blood 2019-08-03 19:39:00 116 mm[Hg] Univer sity of pressure [facility] Diastolic blood 2019-08-03 19:39:00 75 mm[Hg] Unive rsity of pressure [facility] Heart rate 2019-08-03 19:39:00 116 /min Universi ty of [facility] Body temperature 2019-08-03 19:39:00 37 Isa Univ ersity of [facility] Respiratory rate 2019-08-03 19:39:00 16 /min Univ ersity of [facility] Body height 2019-08-03 19:39:00 165.1 cm Universi ty of [facility] Body weight 2019-08-03 19:39:00 95.369 kg Universi ty [facility] BMI 2019-08-03 19:39:00 34.99 kg/m2 Universi ty of [facility] Systolic blood 2019-07-26 21:14:00 134 mm[Hg] Univer sity of pressure [facility] Diastolic blood 2019-07-26 21:14:00 87 mm[Hg] Unive rsity of pressure [facility] Heart rate 2019-07-26 21:14:00 92 /min Universi ty of [facility] Body temperature 2019-07-26 21:14:00 37.72 Isa Univ ersity of [facility] Respiratory rate 2019-07-26 21:14:00 16 /min Univ ersity of [facility] Body height 2019-07-26 21:14:00 165.1 cm [facility]i [facility] Body weight 2019-07-26 21:14:00 96.389 kg [facility] BMI 2019-07-26 21:14:00 35.36 kg/m2 [facility] Systolic blood 2019-03-22 19:25:00 113 mm[Hg] Univer sity of pressure [facility] Diastolic blood 2019-03-22 19:25:00 72 mm[Hg] Unive rsity of pressure [facility] Heart rate 2019-03-22 19:25:00 93 /min [facility]i [facility] Body temperature 2019-03-22 19:25:00 36.94 Isa Univ ersity of [facility] Respiratory rate 2019-03-22 19:25:00 16 /min Univ [facility] Body height 2019-03-22 19:25:00 160 cm [facility]i [facility] Body weight 2019-03-22 19:25:00 93.441 kg [facility] BMI 2019-03-22 19:25:00 36.49 kg/m2 [facility] Systolic blood 2019-02-21 19:44:00 134 mm[Hg] Univer sity of pressure [facility] Diastolic blood 2019-02-21 19:44:00 77 mm[Hg] Unive rsity of pressure [facility] Heart rate 2019-02-21 19:44:00 101 /min [facility] Body temperature 2019-02-21 19:44:00 37 Isa Univ ersity of [facility] Respiratory rate 2019-02-21 19:44:00 16 /min Univ ersity of [facility] Body height 2019-02-21 19:44:00 160 cm [facility] Body weight 2019-02-21 19:44:00 94.121 kg [facility] BMI 2019-02-21 19:44:00 36.76 kg/m2 [facility] Procedures Procedure Date / Time Performing Clinician Source Performed GARDASIL 9 (HPV 9V) 2020-02-20 19:16:37 Theresa Lord [facility] VACCINE [facility] ASSIGNMENT OF BENEFITS 2020-02-20 18:38:40 Doctor Unassigned, No [facility] GARDASIL 9 (HPV 9V) 2019-09-23 21:08:55 Theresa Lord [facility] POCT TEST 2019-09-23 20:16:00 Theresa Lord [facility] CONSENT FOR 2019-09-23 05:01:00 Doctor Unassigned, No [facility] CONTRACEPTION [facility] CBC WITH DIFFERENTIAL 2019-08-12 09:42:00 Tasha Alberto [facility] VENOUS CORD GAS 2019-08-11 23:27:00 Pedro Carranza [facility] URINALYSIS 2019-08-11 12:19:00 Sergio [facility] PROTEIN CREAT RATIO 2019-08-11 12:19:00 Sergio [facility] URINE RANDOM [facility] LACTATE DEHYDROGENASE 2019-08-11 07:31:00 Sergio [facility] CBC WITH DIFFERENTIAL 2019-08-11 07:31:00 Sergio [facility] SGOT (ASPARTATE AMINO 2019-08-11 04:05:00 Sergio [facility] TRANSFER) Medical Branch CREATININE 2019-08-11 04:05:00 Sergio [facility] ALANINE AMINO 2019-08-11 04:05:00 Sergio [facility] TRANSFERASE(SGPT Medical Branch URIC ACID 2019-08-11 04:05:00 Sergio [facility] HEPATITIS B SURFACE 2019-08-11 04:05:00 Pedro Carranza [facility] ANTIGEN [facility] GALV ONLY - SYPHILIS 2019-08-11 04:05:00 Pedro Carranza [facility] IGG/IGM [facility] HB ABO GROUPING 2019-08-11 04:04:00 Pedro Carranza [facility] RHO (D) IMMUNE GLOBULIN 2019-08-11 04:04:00 Tasha Alberto [facility] ersity [facility] POCT URINALYSIS 2019-08-03 19:42:00 Theresa Lord Univers ity [facility] POCT URINALYSIS 2019-07-26 21:46:00 Theresa Lord Univers ity [facility] POCT URINALYSIS 2019-03-22 19:31:00 Theresa Lord Univers ity [facility] POCT URINALYSIS 2019-02-21 19:44:00 Theresa Lord Univers [facility] Encounters Start End Encounter Admission Attending Care Care Encounter Source Date/Time Date/Time Type Type Clinicians Facility Department ID 2020-05-23 2020-05-23 Outpatient R [facility] [id number] Univers 14:00:00 14:00:00 ity of [facility] 2020-02-20 2020-02-20 [facility] 1.2 .840.114 [id number] Univers 13:40:12 14:05:43 Visit Theresa Lord [employer]PERATOR 350.1.13. 10 ity [facility] [id number] Darrin as MATERNAL [phone] Med ical & CHILD [address] [place] [address] 2020-02-20 2020-02-20 [facility] [id number] Univers 13:30:00 13:30:00 THERESA henson [facility] 2020-02-20 2020-02-20 Orders Doctor ARELI 1.2.840.114 [id number] Univers 00:00:00 00:00:00 Only Unassigned, LINDA 350.1.13.10 ity of [facility] 4.2.7.2.686 Darrin as [phone] [address] 2019-11-23 2019-11-23 Outpatient R [facility] [id number] Univers 13:00:00 13:00:00 ity of [facility] 2019-11-09 2019-11-09 [facility] [id number] Univers 14:15:00 14:15:00 THERESA huang o [facility] 2019-11-09 2019-11-09 [facility] 1.2.840.114 [id number] Univers 12:42:08 12:57:08 ne Visit Theresa Naheed [employer] W[employer]ER OPERATOR [id number] ity of [facility] [id number] Darrin as MATERNAL [id number] [facility] & [address] 2019-10-07 2019-10-07 Outpatient R RISA, [facility] [id number] Univers 13:30:00 13:30:00 THERESA ity o f [facility] 2019-10-06 2019-10-06 [facility] [id number] Univers 08:45:00 08:45:00 THERESA ceceliay o f [facility] 2019-10-06 2019-10-06 Telephone [facility] 1.2.840.114 [id number] Univers 00:00:00 00:00:00 [facility] STRAW HAT WASHER OPERATOR 350.1.13.10 ity of [facility] 4.2.7.2.686 Darrin as MATERNAL [phone] [address] 2019-09-23 2019-09-23 Office [facility] [id number] Univers 15:04:55 16:09:38 Visit Theresa C [employer]AW H[employer] WASHER OPERATOR [id number] ity of [facility] 4.2.7.2.686 Darrin as MATERNAL [id number] [address] 2019-09-23 2019-09-23 Outpatient R RISA, [facility] [id number] Univers 15:00:00 15:00:00 THERESA huang o [facility] 2019-09-23 2019-09-23 Orders Doctor [place] 1.2.840.114 [id number] Univers 00:00:00 00:00:00 Only Unassigned, LINDA 350.1.13.[address] [place] [facility] 4.2.7.2.686 Darrin as [phone] [address] 2019-09-01 2019-09-01 Routine [facility] [id number] Univers 10:02:22 10:17:22 Theresa C [employer] H[employer] W[employer]ER OPERATOR 350.1.13.10 ity of Visit REGIONAL 4.2.7.2.686 Darrin as MATERNAL [phone] [facility] ical & CHILD [address] [place] [address] 2019-09-01 2019-09-01 Outpatient R RISA [facility] [id number] Univers 09:30:00 09:30:00 THERESA raiy o f [facility] 2019-08-18 2019-08-18 Nurse Visit, Ang-Rmchp Nurse [facility] 1.2 .840.114 [id number] Univers 09:28:08 09:52:41 Visit Theresa Lord C [employer] H[employer] W[employer]ER OPERATOR 350.1.13. 10 ity of [facility] 4.2.7.2.686 Darrin as MATERNAL [phone] [facility] & CHILD [address] [place] [address] 2019-08-10 2019-08-13 [facility] [id number] Univers 18:34:00 14:36:00 Encounter Sabrina MCKEON 350.1.13.[address] [facility] 4.2.7.2.686 Darrin as [id number] [address] 2019-08-03 2019-08-03 Routine Risa [facility] [id number] Univers 13:13:09 13:53:30 Theresa C STRAW HAT WASHER OPERATOR 350.1.13.10 ity of Visit [facility] 4.2.7.2.686 Darrin as MATERNAL [phone] [facility] & CHILD [address] [place] [address] 2019-07-26 2019-07-26 Routine Risa, [facility] [id number] Univers 14:51:29 15:37:05 Theresa C STRAW HAT WASHER OPERATOR 350.1.13.10 ity of Visit [facility] 4.2.7.2.686 Darrin as MATERNAL [phone] [facility] & CHILD [address] [place] [address] 2019-03-22 2019-03-22 Routine Theresa Lord [facility] [id number] [id number] Univers 14:01:38 14:51:32 JosiahAmi Marcela [employer]AW H[employer] WASHER OPERATOR 350.1.13.10 ity of Visit REGIONAL 4.2.7.2.686 Darrin [address] MATERNAL [phone] [facility] ical & CHILD [address] [place] [address] 2019-03-22 2019-03-22 Telephone Marcussidrajonathon DEEDUARDA 1.2.840.114 [id number] Univers 00:00:00 00:00:00 Theresa Farfan STRAW HAT WASHER OPERATOR 350.1.13.10 ity of [facility] 4.2.7.2.686 Darrin [address] MATERNAL [phone] [facility] ical & CHILD [address] [place] [address] 2019-02-23 2019-02-23 Unscrambler Ultrasound, Crystal [facility] 1.2 .840.114 [id number] [facility] 11:21:38 11:46:18 Visit Sabrina Vickers STRAW H[employer] WASHER OPERATOR 350.1.13.10 ity of [facility]AL 4.2.7.2.686 Darrin as MATERNAL [phone] [facility] ical & CHILD [facility] 2019-02-23 2019-02-23 Abstract Robles [facility] 1.2.840.114 [id number] Univers 00:00:00 00:00:00 Radha Moody STRAW HAT WASHER OPERATOR 350.1.13.10 ity of [facility] 4.2.7.2.686 Darrin as MATERNAL [id number] [facility] & CHILD [address] [place] [address] 2019-02-21 2019-02-21 Routine Robles [facility] 1.2.840.114 [id number] Univers 14:37:15 15:06:20 Stephennda R STRAW HAT WASHER OPERATOR 350.1.13.10 ity of Visit REGIONAL 4.2.7.2.686 Darrin as MATERNAL [id number] [facility] ical & CHILD [address] [place] [address] Results Test Description Test Time Test Comments Results Result Comments Source POCT TEST 2019-09-23 20:17:00 Test Item Value Reference Range Interpretation Comme nts POCT PREG (test code = 1605) Negative On board controls acceptable with C Line (test code = 3574) Yes POCT PREG LOT # (test code = 3575) POCT PREG TEST DATE (test code = 3576) [id number] 20:17:00 Test Item Value Reference Range Interpretation Comments POCT PREG (test code = 1605) Negative On board controls acceptable with C Yes Line (test code = 3574) POCT PREG LOT # (test code = 3575) POCT PREG TEST DATE (test code = 3576) [facility] [place] [id number] 14:54:00 Test Item Value Reference Range Interpretation Comments Syphilis IgG/IgM (test Non-reactive Non-reactive code = 46917-5) FARHAD (test code = FARHAD) Non-reactive - No serologic evidence of T. pallidum infection. Cannot exclude incubating or early syphilis. Submit a second specimen in 2-4 weeks if syphilis is clinically suspected. Equivocal - Further testing to follow. Reactive - Further testing to follow. Lab Interpretation (test Normal code = 63470-4) [facility] [id number] 10:19:00 Test Item Value Reference Range Interpretation Comments WBC (test code = See_Comment H [Automated 0090-2) message] The system which generated this result transmit darren reference range : 4.30 - 11.10 10*3/?L. The reference range was not used to interpret this result as normal/abnormal . RBC (test code = See_Comment [Automated 849-8) message] The system which generated this result transmit darren reference range : 3.93 - 5.25 10*6/?L. The reference range was not used to interpret this result as normal/abnormal . HGB (test code = 10.3 g/dL 11.6-15 L 718-7) HCT (test code = 35.5 % 35.7-45.2 L 4544-3) MCV (test code = 74.0 fL 80.6-95.5 L 787-2) MCH (test code = 21.5 pg 25.9-32.8 L 785-6) MCHC (test code = 29.0 g/dL 31.6-35.1 L 786-4) RDW-SD (test code = 44.3 fL 39-49.9 26480-3) RDW-CV (test code = 16.9 % 12-15.5 H 788-0) PLT (test code = See_Comment [Automated 777-3) message] The system which generated this result transmit darren reference range : 166 - 358 10*3/ ?L. The reference range was not u sed to interpret th is result as normal/abnormal . MPV (test code = 12.1 fL 9.5-12.9 29802-8) NRBC/100 WBC (test See_Comment [Automat ed code = 9642962979) message] The system which generated this result transmit darren reference range : 0.0 - 10.0 /100 WBCs. The reference range was not used to interpret this result as normal/abnormal . NRBC x10^3 (test code <0.01 See_Comment [Auto mated = 5051277621) message] The system which generated this result transmit darren reference range : 10*3/?L. The reference range was not used to interpret this result as normal/abnormal . GRAN MAT (NEUT) % 70.9 % (test code = 770-8) IMM GRAN % (test code 0.50 % = 8026698840) LYMPH % (test code = 21.0 % 736-9) MONO % (test code = 7.2 % 5905-5) EOS % (test code = 0.2 % 713-8) BASO % (test code = 0.2 % 706-2) GRAN MAT x10^3(ANC) 10.09 10*3/uL 1.88-7.09 H (test code = 0674135775) IMM GRAN x10^3 (test 0.07 10*3/uL 0-0.06 H code = 0650294792) LYMPH x10^3 (test code 2.98 10*3/uL 1.32-3.29 = 731-0) MONO x10^3 (test code 1.02 10*3/uL 0.33-0.92 H = 742-7) EOS x10^3 (test code = 0.03 10*3/uL 0.03-0.39 711-2) BASO x10^3 (test code 0.03 10*3/uL 0.01-0.07 = 704-7) Lab Interpretation Abnormal (test code = 85425-7) [facility] (D) IMMUNE [id number] 02:49:21 Test Item Value Reference Range Interpretation Comments RHIG CANDIDATE? No- see comment Patient i s not a (test code = candidate for R hIg- 5055) Patient is Rh Positive.Perfor med at [facility] Laboratory Services - [facility] Blood [address] [place] [address]Pexp Free: [phone] A No. [id number] [facility] [id number] 23:39:00 Test Item Value Reference Range Interpretation Comments VENOUS BASE EXCESS, mEq/L CORD (test code = 3587925216) VENOUS PH, CORD (test 7.25-7.45 code = 5572525389) VENOUS PC02, CORD See_Comment [Automate d message] The (test code = system which ge nerated 0526868583) this result tra nsmitted reference range : 27 - 49 mmHg. The refer ence range was not used to interpret this result as normal/abnormal . VENOUS PO2, CORD (test See_Comment [Aut omated message] The code = 7192208337) system [facility] generated this result tra nsmitted reference range : 17 - 41 mmHg. The refer ence range was not used to interpret this result as normal/abnormal . VENOUS BICARBONATE, See_Comment [Automa darren message] The CORD (test code = system wh ch generated 3371372411) this result tra nsmitted reference range : 12 - 29 mEq/L. The refe rence range was not used to interpret this result as normal/abnormal . [facility] BranchAR[facility]IAL CORD [id number] 23:39:00 Test Item Value Reference Range Interpretation Comments BASE EXCESS, CORD mEq/L (test code = 9842124919) AC PH, CORD (BEAKER) 7.18-7.38 (test code = 4491475500) PC02, CORD (test code See_Comment [Auto mated message] The = 8635511348) system which g enerated this result transmit darren reference range : 32 - 66 mmHg. The refer ence range was not used to interpret this result as normal/abnormal . PO2, CORD (test code See_Comment [Autom ated message] The = 9950985848) system which g enerated this result transmit darren reference range : 10 - 30 mmHg. The refer ence range was not used to interpret this result as normal/abnormal . BICARBONATE, CORD See_Comment [Automate d message] The (test code = system which ge nerated this 1092126407) result transmit darren reference range : 17 - 27 mEq/L. The refe rence range was not used to interpret this result as normal/abnormal . [facility] Ratio Urine [id number] 13:03:00 Test Item Value Reference Range Interpretation Comments T. PROT U (test code = 2888-6) 12 mg/dL CREAT U (test code = 4514381972) 215.7 mg/dL Protein/Creatinine Ratio Urine 0.0-2.0 (test code = 9072144294) [facility]inalysis2020-02-[facility] 12:45:00 Test Item Value Reference Range Interpretation Comments APPEARANCE (test code = Hazy Clear A 3814210743) COLOR (test code = Yellow Yellow 0029193510) PH (test code = 4.8-8.0 5536516343) SP GRAVITY (test code = 1.003-1.030 8744005924) GLU U QUAL (test code = Normal Normal 0936850150) BLOOD (test code = Negative Negative INTERFERE NCE FROM 7508560502) ASCORBIC ACID M AY CAUSE FALSE NEG ATIVE RESULT KETONES (test code = 5 mg/dL Negative A 7192665704) PROTEIN (test code = 30 mg/dL Negative A 2887-8) UROBILIN (test code = 4.0 mg/dL Normal A 5567969848) BILIRUBIN (test code = Negative Negative 5631704858) NITRITE (test code = Negative Negative 2049222072) LEUK REFUGIO (test code = 25/uL Negative A 9896545334) RBC/HPF (test code = See_Comment [Autom ated message] 6309096214) The system [employer] generated this result transmitted ref erence range: 0 - 3 HP F. The reference range was not used to int erpret this result as normal/abnormal . WBC/HPF (test code = See_Comment H [Autom ated message] 8993124891) The system [employer] generated this result transmitted ref erence range: 0 - 5 HP F. The reference range was not used to int erpret this result as normal/abnormal . BACTERIA (test code = Moderate Negative A 8751173353) MUCOUS (test code = Marked Negative LPF A 6082064293) SQ EPITH (test code = See_Comment H [Auto mated message] 6631796470) The system [employer] generated this result transmitted ref erence range: <=2 HPF. The reference range was not used to int erpret this result as normal/abnormal . Lab Interpretation Abnormal (test code = 54995-4) [facility] Surface [id number] 09:09:00 Test Item Value Reference Range Interpretation Comments HBsAg Semi-Quantitative (test code = Negative Negative 5195-3) [facility] [id number] 08:41:00 Test Item Value Reference Range Interpretation Comments LDH (test code = 6079321866) 433 U/L 300-600 Lab Interpretation (test code = Normal 42410-8) [facility] [id number] 08:11:00 Test Item Value Reference Range Interpretation Comments URIC ACID (test code = 3098018634) 4.1 mg/dL 2.9-6 Lab Interpretation (test code = Normal 83275-5) [facility] [id number] 08:11:00 Test Item Value Reference Range Interpretation Comments CREATININE (test code 0.50 mg/dL 0.5-1.04 = 0087150225) eGFR Calculation mL/min/1.73m2 (Non-) (test code = 0626313322) eGFR Calculation mL/min/1.73m2 () (test code = 0896326898) FARHAD (test code = FARHAD) Association of Glomerular Filtration Rate (GFR) and Staging of Kidney Disease* + -+ + ---+| GFR (mL/min/1.73 m2) ?| With Kidney Damage ?| ?Without Kidney Damage+ -------+ ------+ ---------+| ?>90 ?| ?Stage one ?| ? Normal ?+ --+ -+ ----+| ?60-89 ?| ?Stage two ?| ? Decreased GFR ? + -+ + ---+| ?30-59 ?| ?Stage three ?| ? Stage three ? + -+ + ---+| ?15-29 ?| ?Stage four ? | ? Stage four ?+ --+ -+ ----+| ?<15 (or dialysis) ? ?| ?Stage five ? | ? Stage five ?+ --+ -+ ----+ *Each stage assumes the associated GFR level has been in effect for at least three months. ?Stages 1 to 5, with or without kidney disease, indicate chronic kidney disease. Notes: Determination of stages one and two (with eGFR >59mL/min/1.73 m2) requires estimation of kidney damage for at least three months as defined by structural or functional abnormalities of the kidney, manifested by either:Pathological abnormalities or Markers of kidney damage (including abnormalities in the composition of the blood or urine or abnormalities in imaging tests). [facility] (Asparate Amino Transfer)2019-08-11 08:11:00 Test Item Value Reference Range Interpretation Comments AST(SGOT) (test code = 7372547856) 22 U/L 13-40 Lab Interpretation (test code = Normal 60642-7) [facility]anine Amino Transferase (SGPT)2019-08-11 08:11:00 Test Item Value Reference Range Interpretation Comments ALTv (test code = 1742-6) 10 U/L 5-35 Lab Interpretation (test code = Normal 53328-6) [facility] WITH [id number] 07:44:00 Test Item Value Reference Range Interpretation Comments WBC (test code = See_Comment [Automated 7527-2) message] The sy stem which generated this result transmitted reference range : 4.30 - 11.10 10*3/?L. The reference range was not used to interpret this result as normal/abnormal . RBC (test code = See_Comment [Automated 933-8) message] The sy stem which generated this result transmitted reference range : 3.93 - 5.25 10*6/?L. The reference range was not used to interpret this result as normal/abnormal . HGB (test code = 10.8 g/dL 11.6-15 L 718-7) HCT (test code = 36.6 % 35.7-45.2 4544-3) MCV (test code = 73.3 fL 80.6-95.5 L 787-2) MCH (test code = 21.6 pg 25.9-32.8 L 785-6) MCHC (test code = 29.5 g/dL 31.6-35.1 L 786-4) RDW-SD (test code = 43.4 fL 39-49.9 54607-9) RDW-CV (test code = 17.0 % 12-15.5 H 788-0) PLT (test code = See_Comment [Automated 777-3) message] The sy stem which generated this result transmitted reference range : 166 - 358 10*3/ ?L. The reference r gladys was not used to interpret this result as normal/abnormal . MPV (test code = 11.5 fL 9.5-12.9 99816-0) NRBC/100 WBC (test See_Comment [Automat ed code = 9501010315) message] The system which generated this result transmitted reference range : 0.0 - 10.0 /100 WBCs. The refer ence range was not u sed to interpret th is result as normal/abnormal . NRBC x10^3 (test code <0.01 See_Comment [Auto mated = 9490183851) message] The s ystem which generated this result transmitted reference range : 10*3/?L. The reference range was not used to interpret this result as normal/abnormal . GRAN MAT (NEUT) % 50.4 % (test code = 770-8) IMM GRAN % (test code 0.30 % = 7648692606) LYMPH % (test code = 39.9 % 736-9) MONO % (test code = 8.3 % 5905-5) EOS % (test code = 0.8 % 713-8) BASO % (test code = 0.3 % 706-2) GRAN MAT x10^3(ANC) 3.84 10*3/uL 1.88-7.09 (test code = 3308101516) IMM GRAN x10^3 (test <0.03 0-0.06 code = 0377223832) LYMPH x10^3 (test code 3.04 10*3/uL 1.32-3.29 = 731-0) MONO x10^3 (test code 0.63 10*3/uL 0.33-0.92 = 742-7) EOS x10^3 (test code = 0.06 10*3/uL 0.03-0.39 711-2) BASO x10^3 (test code <0.03 0.01-0.07 = 704-7) Lab Interpretation Abnormal (test code = 33915-4) [facility] HospitalType and Screen - ONCE [id number] 04:44:04 Test Item Value Reference Range Interpretation Comments ABO & RH (test code O POSITIVE Performe d at [facility] = 20) Laboratory Serv [facility] Blood Bank3 01 [facility] [id number] Free: [phone] A No. [id number] IAT (test code = Negative Performed a t [facility] 1185) Laboratory Serv [facility] Blood Bank3 [facility] [id number] Free: [phone] A No. [id number] [facility] W SPECIFIC [id number] 19:42:00 Test Item Value Reference Range Interpretation Comments POCT U SP GRAV (test code = 3255) . 1.005-1.025 POCT PH U (test code = 3254) . 5-8 POCT U LEUK EST (test code = 3263) . Negative - Negative POCT U NIT (test code = 3262) . Negative - Negative POCT U PROT (test code = 3259) 1+ Negative - Negative POCT U GLU (test code = 3256) Neg Negative - Negative POCT U KETONE (test code = 3258) . Negative - Negative POCT U UROBILI (test code = 3260) . 0.2-1 POCT U BILI (test code = 3261) . Negative - Negative POCT U BLD (test code = 3257) . Negative - Negative POCT U COLOR (test code = 3266) POCT U APPEAR (test code = 3267) [facility] [id number] 19:42:00 Test Item Value Reference Range Interpretation Comments POCT U SP GRAV (test code = 3255) . 1.005-1.025 POCT PH U (test code = 3254) . 5-8 POCT U LEUK EST (test code = 3263) . Negative - Negative POCT U NIT (test code = 3262) . Negative - Negative POCT U PROT (test code = 3259) 1+ Negative - Negative POCT U GLU (test code = 3256) Neg Negative - Negative POCT U KETONE (test code = 3258) . Negative - Negative POCT U UROBILI (test code = 3260) . 0.2-1 POCT U BILI (test code = 3261) . Negative - Negative POCT U BLD (test code = 3257) . Negative - Negative POCT U COLOR (test code = 3266) POCT U APPEAR (test code = 3267) [facility] URINALYSIS W SPECIFIC [id number] 21:46:00 Test Item Value Reference Range Interpretation Comments POCT U SP GRAV (test code = 3255) . 1.005-1.025 POCT PH U (test code = 3254) . 5-8 POCT U LEUK EST (test code = 3263) . Negative - Negative POCT U NIT (test code = 3262) . Negative - Negative POCT U PROT (test code = 3259) Trace Negative - Negative POCT U GLU (test code = 3256) Neg Negative - Negative POCT U KETONE (test code = 3258) . Negative - Negative POCT U UROBILI (test code = 3260) . 0.2-1 POCT U BILI (test code = 3261) . Negative - Negative POCT U BLD (test code = 3257) . Negative - Negative POCT U COLOR (test code = 3266) POCT U APPEAR (test code = 3267) [facility] URINALYSIS W SPECIFIC [id number] 19:31:00 Test Item Value Reference Range Interpretation Comments POCT U SP GRAV (test code = 3255) . 1.005-1.025 POCT PH U (test code = 3254) . 5-8 POCT U LEUK EST (test code = 3263) . Negative - Negative POCT U NIT (test code = 3262) . Negative - Negative POCT U PROT (test code = 3259) Trace Negative - Negative POCT U GLU (test code = 3256) Neg Negative - Negative POCT U KETONE (test code = 3258) . Negative - Negative POCT U UROBILI (test code = 3260) . 0.2-1 POCT U BILI (test code = 3261) . Negative - Negative POCT U BLD (test code = 3257) . Negative - Negative POCT U COLOR (test code = 3266) POCT U APPEAR (test code = 3267) [facility] URINALYSIS W SPECIFIC [id number] 19:45:00 Test Item Value Reference Range Interpretation Comments POCT U SP GRAV (test code = . 1.005-1.025 3255) POCT PH U (test code = 3254) . 5-8 POCT U LEUK EST (test code = . Negative - Negative 3263) POCT U NIT (test code = 3262) . Negative - Negative POCT U PROT (test code = 3259) 2+ Negative - Negative POCT U GLU (test code = 3256) neg Negative - Negative POCT U KETONE (test code = 3258) . Negative - Negative POCT U UROBILI (test code = . 0.2-1 3260) POCT U BILI (test code = 3261) . Negative - Negative POCT U BLD (test code = 3257) . Negative - Negative POCT U COLOR (test code = 3266) POCT U APPEAR (test code = 3267) Lab Interpretation (test code = Abnormal 62698-0) [facility] URINALYSIS W SPECIFIC [id number] 19:45:00 Test Item Value Reference Range Interpretation Comments POCT U SP GRAV (test code = . 1.005-1.025 3255) POCT PH U (test code = 3254) . 5-8 POCT U LEUK EST (test code = . Negative - Negative 3263) POCT U NIT (test code = 3262) . Negative - Negative POCT U PROT (test code = 3259) 2+ Negative - Negative POCT U GLU (test code = 3256) neg Negative - Negative POCT U KETONE (test code = 3258) . Negative - Negative POCT U UROBILI (test code = . 0.2-1 3260) POCT U BILI (test code = 3261) . Negative - Negative POCT U BLD (test code = 3257) . Negative - Negative POCT U COLOR (test code = 3266) POCT U APPEAR (test code = 3267) Lab Interpretation (test code = Abnormal 12084-9) [facility]"
--- NOTE | 2022-05-17 16:21 | ER ---
Nurse's Notes [facility] Name: Emily Rahman Age: 22 yrs Sex: Female : 2000 Arrival Date: 05/17/2022 Time: 14:45 Bed 12 Private MD: Diagnosis: Streptococcal pharyngitis Presentation: 05/17 15:08 Chief complaint: Patient states: chest pain started when waking up at 10am today and mb9 comes and goes. Pt states she has a sore throat for 2 days and that her daughter has the flu. Coronavirus screen: Vaccine status: Patient reports receiving the 2nd dose of the covid vaccine. Ebola Screen: No symptoms or risks identified at this time. Initial Sepsis Screen: Does the patient meet any 2 criteria? No. Patient's initial sepsis screen is negative. Does the patient have a suspected source of infection? No. Patient's initial sepsis screen is negative. Risk Assessment: Do you want to hurt yourself or someone else? Patient reports no desire to harm self or others. Onset of symptoms was May 17, 2022. 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 - Social history:: Smoking status: Reported history of juuling and/or vaping. Screenin:12 Abuse screen: Denies threats or abuse. Nutritional screening: No deficits noted. mb9 Tuberculosis screening: No symptoms or risk factors identified. Fall Risk None identified. Assessment: 15:12 General: Appears in no apparent distress. comfortable, Behavior is calm, cooperative, mb9 appropriate for age. Pain: Complains of pain in chest Pain does not radiate. Pain currently is 0 out of 10 on a pain scale. Quality of pain is described as aching, Pain began suddenly, Is intermittent. Neuro: Level of Consciousness is awake, alert, obeys commands, Oriented to person, place, time, situation, Appropriate for age. Cardiovascular: Heart tones S1 S2 present Rhythm is regular. Respiratory: Reports cough that is non-productive, Airway is patent Respiratory effort is even, unlabored, Respiratory pattern is regular, symmetrical, Breath sounds are clear bilaterally. GI: Abdomen is round Bowel sounds present X 4 quads. Reports nausea, pt states she threw up yesterday. : No signs and/or symptoms were reported regarding the genitourinary system. EENT: No signs and/or symptoms were reported regarding the EENT system. Derm: Skin is intact, Skin is dry, Skin is normal, Skin temperature is warm. Musculoskeletal: Range of motion: intact in all extremities. 16:44 General: Appears in no apparent distress. comfortable, Behavior is calm, cooperative, mb9 appropriate for age. Pain:. Neuro: Level of Consciousness is awake, alert, obeys commands, Oriented to person, place, time, situation, Appropriate for age. Cardiovascular: Heart tones S1 S2 present Rhythm is regular. Respiratory: Airway is patent Respiratory effort is even, unlabored, Respiratory pattern is regular, symmetrical, Breath sounds are clear bilaterally. Derm: Skin is pink, warm \T\ dry. Vital Signs: 15:08 BP 127 / 82; Pulse 80; Resp 16; Temp 99.1(O); Pulse Ox 100% on R/A; Weight 113.4 kg mb9 (R); Height 5 ft. 6 in. (167.64 cm) (R); Pain 5/10; 15:10 BP 127 / 82; Pulse 80; Resp 16; Temp 99.1; Pulse Ox 100% ; mb9 16:51 BP 122 / 81; Pulse 74; Resp 16; Pulse Ox 100% on R/A; mb9 15:08 Body Mass Index 40.35 (113.40 kg, 167.64 cm) 9 ED Course: 14:45 Patient arrived in ED. as 14:48 [facility] jl9 14:48 Sudha Wren MD is Attending Physician. jl9 15:01 Brianna Villegas, SOHA is Primary Nurse. aa5 15:01 Arm band placed on. mb9 15:01 Bed in low position. Call light in reach. Side rails up X 1. Client placed on 9 continuous cardiac and pulse oximetry monitoring. NIBP monitoring applied. color television console monitor on. 15:10 Triage completed. mb9 15:19 No provider procedures requiring assistance completed. Patient maintains SpO2 mb9 saturation greater than 95% on room air. 15:25 Strep Sent. mb9 15:25 Flu Sent. mb9 16:51 Patient did not have IV access during this emergency room visit. mb9 Administered Medications: No medications were administered Medication: 15:18 VIS not applicable for this client. mb9 Outcome: 16:20 Discharge ordered by . jl9 16:51 Discharged to home ambulatory. mb9 16:51 Condition: stable 16:51 Discharge instructions given to patient, Instructed on discharge instructions, follow up and referral plans. Demonstrated understanding of instructions, follow-up care, medications, Prescriptions given X 2. 16:51 Patient left the ED. mb9 Signatures: Colleen Castaneda Audri, RN RN Saman Gleason Mary Beth, RN RN mb9 Corrections: (The following items were deleted from the chart) 15:12 15:11 Home Meds: Ferrous Sulfate Oral; mb9 mb9 15:12 15:11 PSHx: None; mb9 mb9
--- NOTE | 2022-05-17 16:21 | EDPHYS ---
Physician Documentation [facility] Name: Emily Rahman Age: 22 yrs Sex: Female : 2000 Arrival Date: 05/17/2022 Time: 14:45 Bed 12 Private MD: ED Physician Sudha Wren HPI: 05/17 16:16 This 22 yrs old Black Female presents to ER via Ambulatory with complaints of Sore jl9 Throat. Family at home sick with the flu. . 16:16 Onset: The symptoms/episode began/occurred yesterday. Associated signs and symptoms: jl9 Pertinent positives: sore throat. Modifying factors: The patient symptoms are alleviated by nothing, the patient symptoms are aggravated by swallowing. 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 - Social history:: Smoking status: Reported history of juuling and/or vaping. ROS: 16:17 Constitutional: Negative for fever, chills, and weight loss, Eyes: Negative for injury, jl9 pain, redness, and discharge. 16:17 Neck: Negative for injury, pain, and swelling, Cardiovascular: Negative for chest pain, palpitations, and edema, Respiratory: Negative for shortness of breath, cough, wheezing, and pleuritic chest pain, Abdomen/GI: Negative for abdominal pain, nausea, vomiting, diarrhea, and constipation, Back: Negative for injury and pain, : Negative for injury, bleeding, discharge, and swelling, MS/Extremity: Negative for injury and deformity, Skin: Negative for injury, rash, and discoloration, Neuro: Negative for headache, weakness, numbness, tingling, and seizure, Psych: Negative for depression, anxiety, suicide ideation, homicidal ideation, and hallucinations, Allergy/Immunology: Negative for hives, rash, and allergies, Endocrine: Negative for neck swelling, polydipsia, polyuria, polyphagia, and marked weight changes, Hematologic/Lymphatic: Negative for swollen nodes, abnormal bleeding, and unusual bruising. 16:17 ENT: Positive for sore throat. Exam: 16:17 Constitutional: This is a well developed, well nourished patient who is awake, alert, jl9 and in no acute distress. Head/Face: Normocephalic, atraumatic. Eyes: Pupils equal round and reactive to light, extra-ocular motions intact. Lids and lashes normal. Conjunctiva and sclera are non-icteric and not injected. Cornea within normal limits. Periorbital areas with no swelling, redness, or edema. Neck: Trachea midline, no thyromegaly or masses palpated, and no cervical lymphadenopathy. Supple, full range of motion without nuchal rigidity, or vertebral point tenderness. No Meningismus. Chest/axilla: Normal chest wall appearance and motion. Nontender with no deformity. No lesions are appreciated. 16:17 Cardiovascular: Regular rate and rhythm with a normal S1 and S2. No gallops, murmurs, or rubs. Normal PMI, no JVD. No pulse deficits. Respiratory: Lungs have equal breath sounds bilaterally, clear to auscultation and percussion. No rales, rhonchi or wheezes noted. No increased work of breathing, no retractions or nasal flaring. Abdomen/GI: Soft, non-tender, with normal bowel sounds. No distension or tympany. No guarding or rebound. No evidence of tenderness throughout. Back: No spinal tenderness. No costovertebral tenderness. Full range of motion. Skin: Warm, dry with normal turgor. Normal color with no rashes, no lesions, and no evidence of cellulitis. MS/ Extremity: Pulses equal, no cyanosis. Neurovascular intact. Full, normal range of motion. Neuro: Awake and alert, GCS 15, oriented to person, place, time, and situation. Cranial nerves II-XII grossly intact. Motor strength 5/5 in all extremities. Sensory grossly intact. Cerebellar exam normal. Normal gait. Psych: Awake, alert, with orientation to person, place and time. Behavior, mood, and affect are within normal limits. 16:17 ENT: External ear(s): are unremarkable, Ear canal(s): are normal, TM's: are normal, Nose: is normal, Mouth: is normal, Posterior pharynx: erythema, exudate. Vital Signs: 15:08 BP 127 / 82; Pulse 80; Resp 16; Temp 99.1(O); Pulse Ox 100% on R/A; Weight 113.4 kg mb9 (R); Height 5 ft. 6 in. (167.64 cm) (R); Pain 5/10; 15:10 BP 127 / 82; Pulse 80; Resp 16; Temp 99.1; Pulse Ox 100% ; mb9 16:51 BP 122 / 81; Pulse 74; Resp 16; Pulse Ox 100% on R/A; mb9 15:08 Body Mass Index 40.35 (113.40 kg, 167.64 cm) 9 MDM: 15:02 Patient medically screened. jl9 16:17 Differential diagnosis: viral Infection, bacterial infection, URI. Data reviewed: vital jl9 signs, nurses notes. Counseling: I had a detailed discussion with the patient and/or guardian regarding: the historical points, exam findings, and any diagnostic results supporting the discharge/admit diagnosis, lab results, the need for outpatient follow up, to return to the emergency department if symptoms worsen or persist or if there are any questions or concerns that arise at home. 05/17 15:10 Order name: Flu; Complete Time: 16:16 jl9 05/17 15:10 Order name: Strep; Complete Time: 16:16 jl9 Administered Medications: No medications were administered Disposition Summary: 05/17/22 16:20 Discharge Ordered Location: Home jl9 Condition: Stable jl9 Diagnosis - Streptococcal pharyngitis jl9 Followup: jl9 - With: Private Physician - When: 1 - 2 days - Reason: Recheck today's complaints, Continuance of care, Re-evaluation by your physician Discharge Instructions: - Discharge Summary Sheet jl9 - Strep Throat, Adult jl9 Forms: - Medication Reconciliation Form jl9 - Thank You Letter jl9 - Antibiotic Education jl9 - Prescription Opioid Use jl9 Prescriptions: - Augmentin 875-125 mg Oral Tablet - take 1 tablet by ORAL route every 12 hours for 10 days; 20 tablet; Refills: 0, jl9 Product Selection Permitted - Medrol (Branden) 4 mg Oral Tablets, Dose Pack - take 1 tablet by ORAL route as directed - follow package instructions; 1 jl9 packet; Refills: 0, Product Selection Permitted Signatures: Dispatcher [employer] Saman Rasheed9 Anat Persaud RN RN mb9 Corrections: (The following items were deleted from the chart) : 15:11 Home Meds: Ferrous Sulfate Oral; brian mb9 15 15:11 PSHx: None; brian mb9
[2022-05-17 17:14] VITALS: TEMP 99.1; O2SAT 100
[2022-05-17 17:50] VITALS: BP 122/81
== END 2022-05-17 16:51 | disposition home or self-care (01) ==
LOC: ER 14:38
DX: J02.0 Streptococcal pharyngitis (principal)
CPT/HCPCS: 87081; 87804; 99284

== ENCOUNTER 2022-12-07 13:25 | Emergency (ER) | payer OTHER ==
--- OUTSIDE RECORDS SUMMARY | 2022-12-07 13:30 | XMS REPORT | Continuity of Care Document ---
:2000 Author Organization [facility] t Address [address] [facility] [address] [place] [address] Care Team Providers Name Role Phone Theresa Salgado Primary Care Physician [phone] JOSIE ERAZO Attending Clinician Unavailable Josie Erazo CNM Attending Clinician Doctor Unassigned, [place] Attending Clinician Unavailable THERESA LORD Attending Clinician Unavailable Theresa Salgado Attending Clinician [phone] Visit, Sarahchstewart Nurse Attending Clinician Unavailable Sabrina Vickers MD Attending Clinician Ami Paige Attending Clinician Ultrasound, Crytsal Attending Clinician Unavailable Radha Barnett Attending Clinician Sabrina Vickers MD Admitting Clinician Payers Payer Name Policy Type Policy Number Effective Date Expiration Date S fernandoce [place]ID OF [place] [id number] 2022 00:00:00 [place] [facility] [id number] 2019 HEALTH 00:00:00 Problems Condition Condition Condition Status Onset Resolution Last Treating Co mments Source Name Details Category Date Date Treatment Clinician Date Nexplanon Nexplanon Disease Active Uni vers in place in place 11-08 ity of 00:00: [place] [address] Medical Branch Other Other Disease Active 2020-0 Univers general general 5-06 [place] of counseling [place] and advice and advice 00 Me dical for for Branch contracept contracept margie margie management management Routine Routine Disease Active 2020-0 Univers 2-27 [place] of [place] [facility] Disease Active 2020-0 Univers (spontaneo (spontaneo 2-07 [place] y of [place] vaginal [place] vaginal [place] delivery[place] delivery[place] 00 [facility] Single Single Disease Active 2020-0 Univers live live 2-07 it y of 00:00: [place] [facility] Branch History of History of Disease Active 2020-0 U nivers asthma asthma 2-07 ity of 00:00: [place] [facility] Gestationa Gestationa Disease Active 2020-0 U nivers l l 2-06 ity of hypertensi hypertensi 00:[place] [facility] Gestationa Gestationa Disease Active 2020-0 U nivers l l 2-06 ity of hypertensi hypertensi 00:[place] [facility] Obesity Obesity Disease Active 2020-0 Univers (BMI (BMI 2-05 ity of 30-39.9) 30-39.9) 00:00: [facility] 39 weeks 39 weeks Disease Active 2020-0 Unive rs gestation gestation 2-05 ity of of of 00:00: [place] 00 [facility] Susceptibl Susceptibl Disease Active 2019 Overview : Univers e to e to 6-17 Formattin ity of varicella varicella 00:00: g of this [place] (non-immun (non-immun 00 note Me dical e), e), might be Branch currently currently different from the original. Address pp Multiparit Multiparit Disease Active 2019- U nivers y y 6-14 ity of 00:00: [facility] Branch Obesity Obesity Disease Active 2016-07 Univers affecting affecting 0-18 [place] of [place] [facility] Supervisio Supervisio Disease Active 2016-07 U nivers n of high n of high 0-18 ity of risk risk 00:00: [place] , , 00 Me dical antepartum antepartum Br anch Allergies, Adverse Reactions, Alerts Allergy Allergy Status Severity Reaction(s) Onset Inactive Treating Comm ents Source Name Type Date Date Clinician NO KNOWN Drug Active Univers ALLERGIE Class ity of S [facility] Social History Social Habit Start Date Stop Date Quantity Comments Source ASSERTION 2018-11-24 University 00:00:00 [facility] Exposure to 2022-09-26 2022-10-06 Not sure [facility]-CoV-2 00:00:00 08:16:00 [facility] (event) [place] Tobacco use and 2022-10-06 2022-10-06 Smokeless tobacco Un iversity of exposure 00:00:00 00:00:00 non-user [facility] Alcohol intake 2022-10-06 2022-10-06 Current University 00:00:00 00:00:00 non-drinker of [facility] alcohol (finding) [place] Alcohol Comment 2018-12-17 2018-12-17 last sexual Universi ty of 00:00:00 00:00:00 intercourse [facility] 12/09/2018 Branch Sex Assigned At [birth year] Universit y of 00:00:00 00:00:00 [facility] Smoking Status Start Date Stop Date Source Never smoked tobacco [facility] Medications Ordered Filled Start Stop Current Ordering Indication Dosage Frequency Signature Comments Components Source Medication Medication Date Date Medication? Clinician (SIG) Name Name etonogestre 2019- No [id number] 68mg Univers l 3-20 -20 ity of (NEXPLANON) 21:45: 20:45 [place] implant 68 00 :00 Medical mg [place] etonogestre 2019- No [id number] 68mg 68 mg, Univers l -20 -20 Subdermal, ity of (NEXPLANON) 21:45: 20:45 ONCE NOW, [place] implant 68 00 :00 1 dose, Medica l mg Fri [place] 09/23/19 at 1645, Routine
Use approved by: MANAGER ADMINISTRATION etonogestre 2020- No [id number] 68mg Univers l 3-20 -20 ity of (NEXPLANON) 21:45: 20:45 [place] implant 68 00 :00 Medical mg Branch etonogestre 2020- No [id number] 68mg 68 mg, Univers l 3-20 -20 Subdermal, ity of (NEXPLANON) 21:45: 20:45 ONCE NOW, [place] implant 68 00 :00 1 dose, Medica l mg Thu Branch 09/23/19 at 1645, Routine
Use approved by: MANAGER [employer]MINISTRATION varicella 2020-0 Yes .5mL 0.5 mL, Unive rs virus 2 Subcutaneo ity of vaccine 13:26: , [place] live 45 ONCE-PRIOR Medical (VARIVAX TO Branch (PF)) DISCHARGE, injection 1 dose, 0.5 mL Starting 08/13/19 at 0726, Until Discontinu ed, Routine, Give vaccine prior to discharge ferrous 2020-0 Yes 325mg 325 mg, Univer s sulfate 2- Oral, ity of tablet 325 15:00: DAILY, [place] mg 00 First dose Medical on Thu Branch 08/12/19 at 0900, Until Discontinu ed, Routine ibuprofen 2020-0 Yes 600mg 600 mg, Univ ers (IBU) 2- Oral, ity of tablet 600 02:45: Q6HPRN, [place] mg 55 Starting Medical [place] 08/11/19 Branch at 2044, Until Discontinu ed, Routine, Pain (scale 4-6) acetaminoph 2020-0 Yes 650mg 650 mg, Un yanira en 2-07 Oral, ity of (TYLENOL) 02:45: Q6HPRN, [place] tablet 650 55 Starting Medic al mg [place] 08/11/19 Branch at 2044, Until Discontinu ed, Routine, Pain (scale 1-3) diphenhydrA 2020-0 Yes 25mg 25 mg, Univ ers MINE 2- Oral, ity of (BENADRYL) 02:45: [facility] Starting Medica l mg [place] 08/11/19 Branch at 2044, Until Discontinu ed, Routine, Sleep, Itching ondansetron 2020-0 Yes 4mg 4 mg, Slow Univers (ZOFRAN 2-07 IV Push, ity of (PF)) 02:45: Q8HPRN, [place] injection 4 55 Starting Medi surya mg [place] 08/11/19 Branch at 2044, Until Discontinu ed, Routine, Nausea and Vomiting (N/V) simethicone 2019-0 Yes 160mg 160 mg, Un yanira (GAS RELIEF 2-07 Oral, ity of (SIMETHICON 02:45: PC+HSPRN, [place] E)) 55 Starting Medical chewable [place] 08/11/19 Branc h tablet 160 at 2044, mg Until Discontinu ed, Routine, Gas docusate 2020-0 Yes 240mg 240 mg, Unive rs calcium 2-07 Oral, ity of (SURFAK) 02:45: QDAILYPRN, [place] [...] ed, Routine, Perineum discomfort docusate 2020-0 Yes [id number] 240mg Take 1 Un yanira calcium 240 2-07 capsule by it y of mg capsule 00:00: mouth once [place] 00 daily as Medical needed for Branch Constipati on. ibuprofen 2020-0 Yes [id number] 600mg Take 1 U nivers 600 mg 2-07 tablet by ity of tablet 00:00: mouth [place] 00 every 6 Medical (six) Branch hours as needed (Pain). Take with food or milk. Iron Fum & 2020-0 Yes [id number] 1{capsu Take 1 Univers P-FA-Vit B 2-07 le} capsule by ity of & C No.9 00:00: mouth [place] (INTEGRA 00 daily. Medical PLUS) 125 Branch mg iron- 1 mg Cap docusate 2020-0 Yes [id number] 240mg Take 1 Un yanira calcium 240 2-07 capsule by it y of mg capsule 00:00: mouth once [place] 00 daily as Medical needed for Branch Constipati on. ibuprofen 2020-0 Yes [id number] 600mg Take 1 U nivers 600 mg 2-07 tablet by ity of tablet 00:00: mouth [place] 00 every 6 Medical (six) Branch hours as needed (Pain). Take with food or milk. Iron Fum & 2020-0 Yes [id number] 1{capsu Take 1 Univers P-FA-Vit B 2-07 le} capsule by ity of & C No.9 00:00: mouth [place] (INTEGRA 00 daily. Medical PLUS) 125 Branch mg iron- 1 mg Cap docusate 2020-0 Yes [id number] 240mg Take 1 Un yanira calcium 240 2-07 capsule by it y of mg capsule 00:00: mouth once [place] 00 daily as Medical needed for Branch Constipati on. ibuprofen 2020-0 Yes [id number] 600mg Take 1 U nivers 600 mg 2-07 tablet by ity of tablet 00:00: mouth [place] 00 every 6 Medical (six) Branch hours as needed (Pain). Take with food or milk. Iron Fum & 2020-0 Yes [id number] 1{capsu Take 1 Univers P-FA-Vit B 2-07 le} capsule by ity of & C No.9 00:00: mouth [place] (INTEGRA 00 daily. Medical PLUS) 125 Branch mg iron- 1 mg Cap docusate 2020-0 Yes [id number] 240mg Take 1 Un yanira calcium 240 2-07 capsule by it y of mg capsule 00:00: mouth once [place] 00 daily as Medical needed for Branch Constipati on. ibuprofen 2020-0 Yes [id number] 600mg Take 1 U nivers 600 mg 2-07 tablet by ity of tablet 00:00: mouth [place] 00 every 6 Medical (six) Branch hours as needed (Pain). Take with food or milk. Iron Fum & 2020-0 Yes [id number] 1{capsu Take 1 Univers P-FA-Vit B 2-07 le} capsule by ity of & C No.9 00:00: mouth [place] (INTEGRA 00 daily. Medical PLUS) 125 Branch mg iron- 1 mg Cap docusate 2020-0 Yes [id number] 240mg Take 1 Un yanira calcium 240 2-07 capsule by it y of mg capsule 00:00: mouth once [place] 00 daily as Medical needed for Branch Constipati on. ibuprofen 2020-0 Yes [id number] 600mg Take 1 U nivers 600 mg 2-07 tablet by ity of tablet 00:00: mouth [place] 00 every 6 Medical (six) Branch hours as needed (Pain). Take with food or milk. Iron Fum & 2020-0 Yes [id number] 1{capsu Take 1 Univers P-FA-Vit B 2-07 le} capsule by ity of & C No.9 00:00: mouth [place] (INTEGRA 00 daily. Medical PLUS) 125 Branch mg iron- 1 mg Cap docusate 2020-0 Yes [id number] 240mg Take 1 Un yanira calcium 240 2-07 capsule by it y of mg capsule 00:00: mouth once [place] 00 daily as Medical needed for Branch Constipati on. ibuprofen 2020-0 Yes [id number] 600mg Take 1 U nivers 600 mg 2-07 tablet by ity of tablet 00:00: mouth [place] 00 every 6 Medical (six) Branch hours as needed (Pain). Take with food or milk. Iron Fum & 2020-0 Yes [id number] 1{capsu Take 1 Univers P-FA-Vit B 2-07 le} capsule by ity of & C No.9 00:00: mouth [place] (INTEGRA 00 daily. Medical PLUS) 125 Branch mg iron- 1 mg Cap docusate 2020-0 Yes [id number] 240mg Take 1 Un yanira calcium 240 2-07 capsule by it y of mg capsule 00:00: mouth once [place] 00 daily as Medical needed for Branch Constipati on. ibuprofen 2020-0 Yes [id number] 600mg Take 1 U nivers 600 mg 2-07 tablet by ity of tablet 00:00: mouth [place] 00 every 6 Medical (six) Branch hours as needed (Pain). Take with food or milk. Iron Fum & 2020-0 Yes [id number] 1{capsu Take 1 Univers P-FA-Vit B 2-07 le} capsule by ity of & C No.9 00:00: mouth [place] (INTEGRA 00 daily. Medical PLUS) 125 Branch mg iron- 1 mg Cap docusate 2020-0 Yes [id number] 240mg Take 1 Un yanira calcium 240 2-07 capsule by it y of mg capsule 00:00: mouth once [place] 00 daily as Medical needed for Branch Constipati on. ibuprofen 2020-0 Yes [id number] 600mg Take 1 U nivers 600 mg 2-07 tablet by ity of tablet 00:00: mouth [place] 00 every 6 Medical (six) Branch hours as needed (Pain). Take with food or milk. Iron Fum & 2020-0 Yes [id number] 1{capsu Take 1 Univers P-FA-Vit B 2-07 le} capsule by ity of & C No.9 00:00: mouth [place] (INTEGRA 00 daily. Medical PLUS) 125 Branch mg iron- 1 mg Cap docusate 2020-0 Yes [id number] 240mg Take 1 Un yanira calcium 240 2-07 capsule by it y of mg capsule 00:00: mouth once [place] 00 daily as Medical needed for Branch Constipati on. ibuprofen 2020-0 Yes [id number] 600mg Take 1 U nivers 600 mg 2-07 tablet by ity of tablet 00:00: mouth [place] 00 every 6 Medical (six) Branch hours as needed (Pain). Take with food or milk. Iron Fum & 2020-0 Yes [id number] 1{capsu Take 1 Univers P-FA-Vit B 2-07 le} capsule by ity of & C No.9 00:00: mouth [place] (INTEGRA 00 daily. Medical PLUS) 125 Branch mg iron- 1 mg Cap docusate 2020-0 Yes [id number] 240mg Take 1 Un yanira calcium 240 2-07 capsule by it y of mg capsule 00:00: mouth once [place] 00 daily as Medical needed for Branch Constipati on. ibuprofen 2020-0 Yes [id number] 600mg Take 1 U nivers 600 mg 2-07 tablet by ity of tablet 00:00: mouth [place] 00 every 6 Medical (six) Branch hours as needed (Pain). Take with food or milk. Iron Fum & 2020-0 Yes [id number] 1{capsu Take 1 Univers P-FA-Vit B 2-07 le} capsule by ity of & C No.9 00:00: mouth [place] (INTEGRA 00 daily. Medical PLUS) 125 Branch mg iron- 1 mg Cap docusate 2020-0 Yes [id number] 240mg Take 1 Un yanira calcium 240 2-07 capsule by it y of mg capsule 00:00: mouth once [place] 00 daily as Medical needed for Branch Constipati on. ibuprofen 2020-0 Yes [id number] 600mg Take 1 U nivers 600 mg 2-07 tablet by ity of tablet 00:00: mouth [place] 00 every 6 Medical (six) Branch hours as needed (Pain). Take with food or milk. Iron Fum & 2019- Yes [id number] 1{capsu Take 1 Univers P-FA-Vit B 08-12 le} capsule by ity of & C No.9 00:00: mouth [place] (INTEGRA 00 daily. Medical PLUS) 125 Branch mg iron- 1 mg Cap docusate 2022- No [id number] 240mg Take 1 U nivers calcium 240 08-12 capsule by i ty of mg capsule 00:00: 00:00 mouth once [place] 00 :00 daily as Medical needed for Branch Constipati on. ibuprofen 2022- No [id number] 600mg Take 1 Univers 600 mg -09-25 tablet by ity of tablet 00:00: 00:00 mouth [place] 00 :00 every 6 Medical (six) Branch hours as needed (Pain). Take with food or milk. Iron Fum & 2022- No [id number] 1{capsu Take 1 Univers P-FA-Vit B 08-12 le} capsule by it y of & C No.9 00:00: 00:00 mouth [place] (INTEGRA 00 :00 daily. Medical PLUS) 125 Branch mg iron- 1 mg Cap docusate 2022- No [id number] 240mg Take 1 U nivers calcium 240 08-12 capsule by i ty of mg capsule 00:00: 00:00 mouth once [place] 00 :00 daily as Medical needed for Branch Constipati on. ibuprofen 2022- No [id number] 600mg Take 1 Univers 600 mg 209-25 tablet by ity of tablet 00:00: 00:00 mouth [place] 00 :00 every 6 Medical (six) Branch hours as needed (Pain). Take with food or milk. Iron Fum & 2022- No [id number] 1{capsu Take 1 Univers P-FA-Vit B 08-12 le} capsule by it y of & C No.9 00:00: 00:00 mouth [place] (INTEGRA 00 :00 daily. Medical PLUS) 125 Branch mg iron- 1 mg Cap amnioinfusi 2019- No 1000mL at 750 U nivers on IV 2 02-06 mL/hr, ity of infusion 20:00: 20:06 [...] until the liter is complete.& nbsp;&nbsp ;Notify Oxyacetylene Welder if uterine resting tone exceeds 25 mmHg at any time during the amnioinfus ion. Obst etrics (KARINA) Aminoinfus ion Orders
lactated 2019- 2020- No 500mL at 999 Unive rs ringers IV 08-11-06 mL/hr, 500 it y of infusion 17:45: 16:45 mL, IV [place] 500 mL 00 :00 Infusion, Medical ONCE, 1 Branch dose, [place] 08/11/19 at 1145, Routine ondansetron 2020- No 4mg 4 mg, Slow Univers (ZOFRAN 08-11 IV Push, ity of (PF)) 08:15: 07:12 ONCE, 1 [place] injection 4 00 :00 dose, [place] Med ical mg 08/11/19 at Branch 0215, Routine D5W-LR IV 2019-0 2020- No 1000mL at 125 Uni vers infusion 08-11- mL/hr, IV ity o f 1,000 mL 04:00: 02:46 Infusion, [place] as 00 :09 CONTINUOUS Medical , Starting Branch 08/10/19 at 2200, Until [place] 08/11/19 at 2045, Routine LR 1000 mL 2019-0 2020- No 2mU/min 2 Uni vers + oxytocin 08-11- julio-unit it y of 20 units IV 03:55: 02:46 s/min (6 [place] Solution 08 :09 mL/hr), at Medic al 6 mL/hr, Branch IV Infusion, TITRATE, Starting 08/10/19 at 2155, Until [place] 08/11/19 at 2045, RADHA, Oxytocin Induction / Augmentati on of Labor. sodium 2020-0 2020- No 30mL 30 mL, Univers citrate-cit 08-11- Oral, ity of jaycee acid 03:51: 16:38 PRE-PROCED [place] (BICITRA) 29 :00 URE ONCE, Medic al 500-334 1 dose, Branch mg/5 mL Starting solution 30 Thu 25/20 mL at 2151, Until Discontinu ed, Routine, Surgery/Pr ocedure ferrous 2017- Yes [id number] 325mg Take 1 Un yanira sulfate 325 6-07 tablet by ity of mg (65 mg 00:00: mouth 2 [place] iron) 00 (two) Medical tablet times Branch daily. ascorbic Yes [id number] 500mg Take 1 U nivers acid, 6-07 tablet by ity of vitamin C, 00:00: mouth 3 [place] 500 mg 00 (three) Medical tablet times Branch daily. ferrous Yes [id number] 325mg Take 1 Un yanira sulfate 325 6-07 tablet by ity of mg (65 mg 00:00: mouth 2 [place] iron) 00 (two) Medical tablet times Branch daily. ascorbic Yes [id number] 500mg Take 1 U nivers acid, 6-07 tablet by ity of vitamin C, 00:00: mouth 3 [place] 500 mg 00 (three) Medical tablet times Branch daily. ferrous Yes [id number] 325mg Take 1 Un yanira sulfate 325 6-07 tablet by ity of mg (65 mg 00:00: mouth 2 [place] iron) 00 (two) Medical tablet times Branch daily. ascorbic Yes [id number] 500mg Take 1 U nivers acid, 6-07 tablet by ity of vitamin C, 00:00: mouth 3 [place] 500 mg 00 (three) Medical tablet times Branch daily. ferrous Yes [id number] 325mg Take 1 Un yanira sulfate 325 6-07 tablet by ity of mg (65 mg 00:00: mouth 2 [place] iron) 00 (two) Medical tablet times Branch daily. ascorbic 2017- Yes [id number] 500mg Take 1 U nivers acid, 6-07 tablet by ity of vitamin C, 00:00: mouth 3 [place] 500 mg 00 (three) Medical tablet times Branch daily. ferrous Yes [id number] 325mg Take 1 Un yanira sulfate 325 6-07 tablet by ity of mg (65 mg 00:00: mouth 2 [place] iron) 00 (two) Medical tablet times Branch daily. ascorbic 2017- Yes [id number] 500mg Take 1 U nivers acid, 6-07 tablet by ity of vitamin C, 00:00: mouth 3 [place] 500 mg 00 (three) Medical tablet times Branch daily. ferrous 2018-0 Yes [id number] 325mg Take 1 Un yanira sulfate 325 6-07 tablet by ity of mg (65 mg 00:00: mouth 2 [place] iron) 00 (two) Medical tablet times Branch daily. ascorbic 2018-0 Yes [id number] 500mg Take 1 U nivers acid, 6-07 tablet by ity of vitamin C, 00:00: mouth 3 [place] 500 mg 00 (three) Medical tablet times Branch daily. ferrous 2018-0 Yes [id number] 325mg Take 1 Un yanira sulfate 325 6-07 tablet by ity of mg (65 mg 00:00: mouth 2 [place] iron) 00 (two) Medical tablet times Branch daily. ascorbic 2018-0 Yes [id number] 500mg Take 1 U nivers acid, 6-07 tablet by ity of vitamin C, 00:00: mouth 3 [place] 500 mg 00 (three) Medical tablet times Branch daily. ferrous 2017-0 Yes [id number] 325mg Take 1 Un yanira sulfate 325 6-07 tablet by ity of mg (65 mg 00:00: mouth 2 [place] iron) 00 (two) Medical tablet times Branch daily. ascorbic 2017-0 Yes [id number] 500mg Take 1 U nivers acid, 6-07 tablet by ity of vitamin C, 00:00: mouth 3 [place] 500 mg 00 (three) Medical tablet times Branch daily. ferrous 2018-0 Yes [id number] 325mg Take 1 Un yanira sulfate 325 6-07 tablet by ity of mg (65 mg 00:00: mouth 2 [place] iron) 00 (two) Medical tablet times Branch daily. ascorbic 2018-0 Yes [id number] 500mg Take 1 U nivers acid, 6-07 tablet by ity of vitamin C, 00:00: mouth 3 [place] 500 mg 00 (three) Medical tablet times Branch daily. ferrous 2018-0 Yes [id number] 325mg Take 1 Un yanira sulfate 325 6-07 tablet by ity of mg (65 mg 00:00: mouth 2 [place] iron) 00 (two) Medical tablet times Branch daily. ascorbic 2018-0 Yes [id number] 500mg Take 1 U nivers acid, 6-07 tablet by ity of vitamin C, 00:00: mouth 3 [place] 500 mg 00 (three) Medical tablet times Branch daily. ferrous 2017- Yes [id number] 325mg Take 1 Un yanira sulfate 325 6-07 tablet by ity of mg (65 mg 00:00: mouth 2 [place] iron) 00 (two) Medical tablet times Branch daily. ascorbic Yes [id number] 500mg Take 1 U nivers acid, 6-07 tablet by ity of vitamin C, 00:00: mouth 3 [place] 500 mg 00 (three) Medical tablet times Branch daily. ferrous 2020- No [id number] 325mg Take 1 U nivers sulfate 325 6-07 02-07 tablet by it y of mg (65 mg 00:00: 00:00 mouth [place] iron) 00 :00 (two) Medical tablet times Branch daily. ascorbic 2020- No [id number] 500mg Take 1 Univers acid, 6-07 02-07 tablet by ity of vitamin C, 00:00: 00:00 mouth 3 [place] 500 mg 00 :00 (three) Medical tablet times Branch daily. doxylamine- 2016-07 Yes [id number] 2{tbl} Take 2 Univers pyridoxine, 1-15 tablets by it y of vit B6, 00:00: mouth at [facility] 00 bedtime. Medic al 10-10 mg Branch per tablet doxylamine2016-07 Yes [id number] 2{tbl} Take 2 Univers pyridoxine, 1-15 tablets by it y of vit B6, 00:00: mouth at [facility] 00 bedtime. Medic al 10-10 mg Branch per tablet doxylamine- 2016-07 Yes [id number] 2{tbl} Take 2 Univers pyridoxine, 1-15 tablets by it y of vit B6, 00:00: mouth at [facility] 00 bedtime. Medic al 10-10 mg Branch per tablet doxylamine2016-07 Yes [id number] 2{tbl} Take 2 Univers pyridoxine, 1-15 tablets by it y of vit B6, 00:00: mouth at [facility] 00 bedtime. Medic al 10-10 mg Branch per tablet doxylamine- 2016-07 Yes [id number] 2{tbl} Take 2 Univers pyridoxine, 1-15 tablets by it y of vit B6, 00:00: mouth at [place] ([facility]) 00 bedtime. Medic al 10-10 mg Branch per tablet doxylamine- 2016-07 Yes [id number] 2{tbl} Take 2 Univers pyridoxine, 1-15 tablets by it y of vit B6, 00:00: mouth at [place] ([facility]) 00 bedtime. Medic al 10-10 mg Branch per tablet doxylamine- 2016-07 Yes [id number] 2{tbl} Take 2 Univers pyridoxine, 1-15 tablets by it y of vit B6, 00:00: mouth at [facility]) 00 bedtime. Medic al 10-10 mg Branch per tablet doxylamine- 2016-07 Yes [id number] 2{tbl} Take 2 Univers pyridoxine, 1-15 tablets by it y of vit B6, 00:00: mouth at [facility]) 00 bedtime. Medic al 10-10 mg Branch per tablet doxylamine- 2016-07 Yes [id number] 2{tbl} Take 2 Univers pyridoxine, 1-15 tablets by it y of vit B6, 00:00: mouth at [facility]) 00 bedtime. Medic al 10-10 mg Branch per tablet doxylamine- 2016-07 Yes [id number] 2{tbl} Take 2 Univers pyridoxine, 1-15 tablets by it y of vit B6, 00:00: mouth at [facility]) 00 bedtime. Medic al 10-10 mg Branch per tablet doxylamine- 2016-07 Yes [id number] 2{tbl} Take 2 Univers pyridoxine, 1-15 tablets by it y of vit B6, 00:00: mouth at [facility]) 00 bedtime. Medic al 10-10 mg Branch per tablet doxylamine- 2016-07 2020- No [id number] 2{tbl} Take 2 Univers pyridoxine, 1-15 02-07 tablets by i ty of vit B6, 00:00: 00:00 mouth at [place] ([facility]) 00 :00 bedtime. Medic al 10-10 mg Branch per tablet PNV 67-iron 2016-07 Yes [id number] 1{each} Take 1 Univers ps-folate 0-18 Each by ity of no.1-dha 00:00: mouth [place] (VITAFOL 00 daily. Medical ULTRA) 29 Branch mg iron- 1 mg-200 mg Cap PNV 67-iron 2016-07 Yes [id number] 1{each} Take 1 Univers ps-folate 0-18 Each by ity of no.1-dha 00:00: mouth [place] (VITAFOL 00 daily. Medical ULTRA) 29 Branch mg iron- 1 mg-200 mg Cap PNV 67-iron 2016-07 Yes [id number] 1{each} Take 1 Univers ps-folate 0-18 Each by ity of no.1-dha 00:00: mouth [place] (VITAFOL 00 daily. Medical ULTRA) 29 Branch mg iron- 1 mg-200 mg Cap PNV 67-iron 2016-07 Yes [id number] 1{each} Take 1 Univers ps-folate 0-18 Each by ity of no.1-dha 00:00: mouth [place] (VITAFOL 00 daily. Medical ULTRA) 29 Branch mg iron- 1 mg-200 mg Cap PNV 67-iron 2016-07 Yes [id number] 1{each} Take 1 Univers ps-folate 0-18 Each by ity of no.1-dha 00:00: mouth [place] (VITAFOL 00 daily. Medical ULTRA) 29 Branch mg iron- 1 mg-200 mg Cap PNV 67-iron 2016-07 Yes [id number] 1{each} Take 1 Univers ps-folate 0-18 Each by ity of no.1-dha 00:00: mouth [place] (VITAFOL 00 daily. Medical ULTRA) 29 Branch mg iron- 1 mg-200 mg Cap PNV 67-iron 2016-07 Yes [id number] 1{each} Take 1 Univers ps-folate 0-18 Each by ity of no.1-dha 00:00: mouth [place] (VITAFOL 00 daily. Medical ULTRA) 29 Branch mg iron- 1 mg-200 mg Cap PNV 67-iron 2016-07 Yes [id number] 1{each} Take 1 Univers ps-folate 0-18 Each by ity of no.1-dha 00:00: mouth [place] (VITAFOL 00 daily. Medical ULTRA) 29 Branch mg iron- 1 mg-200 mg Cap PNV 67-iron 2016-07 Yes [id number] 1{each} Take 1 Univers ps-folate 0-18 Each by ity of no.1-dha 00:00: mouth [place] (VITAFOL 00 daily. Medical ULTRA) 29 Branch mg iron- 1 mg-200 mg Cap PNV 67-iron 2016-07 Yes [id number] 1{each} Take 1 Univers ps-folate 0-18 Each by ity of no.1-dha 00:00: mouth [place] (VITAFOL 00 daily. Medical ULTRA) 29 Branch mg iron- 1 mg-200 mg Cap PNV 67-iron 2016-07 Yes [id number] 1{each} Take 1 Univers ps-folate 0-18 Each by ity of no.1-dha 00:00: mouth [place] (VITAFOL 00 daily. Medical ULTRA) 29 Branch mg iron- 1 mg-200 mg Cap PNV 67-iron 2016-07 2020- No [id number] 1{each} Take 1 Univers ps-folate 0-18 02-07 Each by ity of no.1-dha 00:00: 00:00 mouth [place] (VITAFOL 00 :00 daily. Medical ULTRA) 29 Branch mg iron- 1 mg-200 mg Cap Immunizations Ordered Immunization Filled Immunization Date Status Commen ts Source Name Name HPV9 2022-09-25 Completed [facility] 00:00:00 [facility] HPV9 2022-09-25 Completed [facility] 00:00:00 [facility] HPV9 2022-09-25 Completed [facility] of 00:00:00 [facility] HPV9 2022-09-25 Completed [facility] of 00:00:00 [facility] HPV9 2022-09-25 Completed [facility] of 00:00:00 [facility] SARS-COV-2 COVID-19 2020-10-23 Completed Unive rsity of VACCINE - (MODERNA) 00:00:00 [facility] SARS-COV-2 COVID-19 2020-10-23 Completed Unive rsity of VACCINE - (MODERNA) 00:00:00 [facility] SARS-COV-2 COVID-19 2020-10-23 Completed Unive rsity of VACCINE - (MODERNA) 00:00:00 [facility] SARS-COV-2 COVID-19 2020-10-23 Completed Unive rsity of VACCINE - (MODERNA) 00:00:00 [facility] SARS-COV-2 COVID-19 2020-10-23 Completed Unive rsity of VACCINE - (MODERNA) 00:00:00 [facility] HPV9 2020-02-20 Completed University [facility] 00:00:00 [facility] HPV9 2020-02-20 Completed [facility] 00:00:00 [facility] HPV9 2020-02-20 Completed University of 00:00:00 [facility] HPV9 2020-02-20 Completed University of 00:00:00 [facility] HPV9 2020-02-20 Completed [facility] 00:00:00 [facility] HPV9 2020-02-20 Completed [facility] of 00:00:00 [facility] HPV9 2020-02-20 Completed University of 00:00:00 [facility] HPV9 2019-09-23 Completed University of 00:00:00 [facility] HPV9 2019-09-23 Completed University of 00:00:00 [facility] HPV9 2019-09-23 Completed University of 00:00:00 [facility] HPV9 2019-09-23 Completed [facility] 00:00:00 [facility] HPV9 2019-09-23 Completed [facility] 00:00:00 [facility] HPV9 2019-09-23 Completed [facility] of 00:00:00 [facility] HPV9 2019-09-23 Completed University of 00:00:00 [facility] HPV9 2019-09-23 Completed [facility] 00:00:00 [facility] HPV9 2019-09-23 Completed [facility] of 00:00:00 [facility] HPV9 2019-09-23 Completed University of 00:00:00 [facility] HPV9 2019-09-23 Completed University of 00:00:00 [facility] HPV9 2019-09-23 Completed University of 00:00:00 [facility] HPV9 2019-09-23 Completed University of 00:00:00 [facility] Tdap 2019-05-30 Completed University of 00:00:00 [facility] Tdap 2019-05-30 Completed University of 00:00:00 [facility] Tdap 2019-05-30 Completed [facility] of 00:00:00 [facility] Tdap 2019-05-30 Completed University of 00:00:00 [facility] Tdap 2019-05-30 Completed University of 00:00:00 [facility] Tdap 2019-05-30 Completed University of 00:00:00 [facility] Tdap 2019-05-30 Completed [facility] 00:00:00 [facility] Tdap 2019-05-30 Completed [facility] 00:00:00 [facility] Tdap 2019-05-30 Completed [facility] 00:00:00 [facility] Tdap 2019-05-30 Completed [facility] 00:00:00 [facility] Tdap 2019-05-30 Completed [facility] 00:00:00 [facility] TDAP 2019-05-30 Completed [facility] 00:00:00 [facility] TDAP 2019-05-30 Completed [facility] 00:00:00 [facility] TDAP 2019-05-30 Completed [facility] 00:00:00 [facility] TDAP 2019-05-30 Completed [facility] 00:00:00 [facility] TDAP 2019-05-30 Completed [facility] 00:00:00 [facility] TDAP 2019-05-30 Completed [facility] 00:00:00 [facility] TDAP 2019-05-30 Completed [facility] 00:00:00 [facility] TDAP 2019-05-30 Completed [facility] 00:00:00 [facility] Tdap 2017-10-13 Completed [facility] 00:00:00 [facility] Tdap 2017-10-13 Completed [facility] 00:00:00 [facility] Tdap 2017-10-13 Completed [facility] 00:00:00 [facility] Tdap 2017-10-13 Completed [facility] 00:00:00 [facility] Tdap 2017-10-13 Completed University [facility] 00:00:00 [facility] Tdap 2017-10-13 Completed [facility] 00:00:00 [facility] Tdap 2017-10-13 Completed [facility] 00:00:00 [facility] Tdap 2017-10-13 Completed [facility] 00:00:00 [facility] Tdap 2017-10-13 Completed [facility] 00:00:00 [facility] Tdap 2017-10-13 Completed [facility] 00:00:00 [facility] Tdap 2017-10-13 Completed [facility] 00:00:00 [facility] Tdap 2017-10-13 Completed [facility] 00:00:00 [facility] TDAP 2017-10-13 Completed [facility] 00:00:00 [facility] TDAP 2017-10-13 Completed [facility] 00:00:00 [facility] Tdap 2017-10-13 Completed [facility] 00:00:00 [facility] TDAP 2017-10-13 Completed [facility] of 00:00:00 [facility] TDAP 2017-10-13 Completed University of 00:00:00 [facility] Tdap 2017-10-13 Completed University of 00:00:00 [facility] TDAP 2017-10-13 Completed University of 00:00:00 [facility] TDAP 2017-10-13 Completed University of 00:00:00 [facility] Tdap 2017-10-13 Completed University of 00:00:00 [facility] TDAP 2017-10-13 Completed [facility] of 00:00:00 [facility] TDAP 2017-10-13 Completed University of 00:00:00 [facility] Tdap 2017-10-13 Completed University of 00:00:00 [facility] Tdap 2017-10-13 Completed University of 00:00:00 [facility] Tdap 2017-10-13 Completed University of 00:00:00 [facility] Tdap 2017-10-13 Completed [facility] 00:00:00 [facility] Meningococcal 2016-02-01 Completed [facility] Polysaccharide 00:00:00 [place] [facility] (groups A, C, Y and Branc h W-135) conjugate vaccine (MCV4P) Meningococcal 2016-02-01 Completed [facility] Polysaccharide 00:00:00 [place] [facility] (groups A, C, Y and Branc h W-135) conjugate vaccine (MCV4P) Meningococcal 2016-02-01 Completed [facility] Polysaccharide 00:00:00 [place] [facility] (groups A, C, Y and Branc h W-135) conjugate vaccine (MCV4P) Meningococcal 2016-02-01 Completed [facility] Polysaccharide 00:00:00 [place] [facility] (groups A, C, Y and Branc h W-135) conjugate vaccine (MCV4P) Meningococcal 2016-02-01 Completed [facility] Polysaccharide 00:00:00 [place] [facility] (groups A, C, Y and Branc h W-135) conjugate vaccine (MCV4P) Meningococcal 2016-02-01 Completed [facility] Polysaccharide 00:00:00 [place] [facility] (groups A, C, Y and Branc h W-135) conjugate vaccine (MCV4P) MMR 2002-01-26 Completed [facility] of 00:00:00 [facility] MMR 2002-01-26 Completed University of 00:00:00 [facility] DTaP, Unspecified 2002-01-26 Completed Univers ity of Formulation 00:00:00 [facility] Hep B, Adol or Pedi 2002-01-26 Completed Unive rsity of Dosage 00:00:00 [facility] IPV 2002-01-26 Completed University of 00:00:00 [facility] MMR 2002-01-26 Completed [facility] of 00:00:00 [facility] DTaP, Unspecified 2002-01-26 Completed Univers ity of Formulation 00:00:00 [facility] Hep B, Adol or Pedi 2002-01-26 Completed Unive rsity of Dosage 00:00:00 [facility] IPV 2002-01-26 Completed University of 00:00:00 [facility] MMR 2002-01-26 Completed [facility] of 00:00:00 [facility] DTaP, Unspecified 2002-01-26 Completed Univers ity of Formulation 00:00:00 [facility] Hep B, Adol or Pedi 2002-01-26 Completed Unive rsity of Dosage 00:00:00 [facility] IPV 2002-01-26 Completed University of 00:00:00 [facility] MMR 2002-01-26 Completed [facility] of 00:00:00 [facility] DTaP, Unspecified 2002-01-26 Completed Univers ity of Formulation 00:00:00 [facility] Hep B, Adol or Pedi 2002-01-26 Completed Unive rsity of Dosage 00:00:00 [facility] IPV 2002-01-26 Completed University of 00:00:00 [facility] MMR 2002-01-26 Completed [facility] of 00:00:00 [facility] DTaP, Unspecified 2002-01-26 Completed Univers ity of Formulation 00:00:00 [facility] Hep B, Adol or Pedi 2002-01-26 Completed Unive rsity of Dosage 00:00:00 [facility] IPV 2002-01-26 Completed [facility] of 00:00:00 [facility] MMR 1999-05-01 Completed [facility] of 00:00:00 [facility] Varicella 1999-05-01 Completed University of (varivax)(chicken 00:00:00 [place] [facility]ox[facility] MMR 1999-05-01 Completed [facility] of 00:00:00 [facility] Varicella 1999-05-01 Completed University of (varivax)(chicken 00:00:00 [place] [facility] pox[facility] HIB PRP-D,booster 1999-05-01 Completed Univers ity of 00:00:00 [facility] MMR 1999-05-01 Completed [facility] of 00:00:00 [facility] Varicella 1999-05-01 Completed University of (varivax)(chicken 00:00:00 [place] [facility] pox) [facility] HIB PRP-D,booster 1999-05-01 Completed Univers ity of 00:00:00 [facility] MMR 1999-05-01 Completed [facility] of 00:00:00 [facility] Varicella 1999-05-01 Completed University of (varivax)(chicken 00:00:00 [place] [facility] pox) [facility] HIB PRP-D,booster 1999-05-01 Completed Univers ity of 00:00:00 [facility] MMR 1999-05-01 Completed University of 00:00:00 [facility] Varicella 1999-05-01 Completed University of (varivax)(chicken 00:00:00 [place] [facility] pox) [facility] HIB PRP-D,booster 1999-05-01 Completed Univers ity of 00:00:00 [facility] MMR 1999-05-01 Completed [facility] of 00:00:00 [facility] Varicella 1999-05-01 Completed University of (varivax)(chicken 00:00:00 [place] [facility] pox) [facility] HIB PRP-D,booster 1999-05-01 Completed Univers ity of 00:00:00 [facility] DTP 1998 Completed University of 00:00:00 [facility] Hib-HbOC 1998 Completed University of 00:00:00 [facility] Poliovirus, Live, 1998 Completed Univers ity of Oral, Trivalent 00:00:00 [facility] DTP 1998 Completed University of 00:00:00 [facility] Hib-HbOC 1998 Completed University of 00:00:00 [facility] Poliovirus, Live, 1998 Completed Univers ity of Oral, Trivalent 00:00:00 [facility] DTP 1998 Completed University of 00:00:00 [facility] Hib-HbOC 1998 Completed University of 00:00:00 [facility] Poliovirus, Live, 1998 Completed Univers ity of Oral, Trivalent 00:00:00 [facility] DTP 1998 Completed University of 00:00:00 [facility] Hib-HbOC 1998 Completed University of 00:00:00 [facility] Poliovirus, Live, 1998 Completed Univers ity of Oral, Trivalent 00:00:00 [facility] DTP 1998 Completed University of 00:00:00 [facility] Hib-HbOC 1998 Completed University of 00:00:00 [facility] Poliovirus, Live, 1998 Completed Univers ity of Oral, Trivalent 00:00:00 [facility] DTaP, Unspecified 1998 Completed Univers ity of Formulation 00:00:00 [facility] Hep B, Adol or Pedi 1998 Completed Unive rsity of Dosage 00:00:00 [facility] HIB PRP-D,booster 1998 Completed Univers ity of 00:00:00 [facility] Poliovirus, Live, 1998 Completed Univers ity of Oral, Trivalent 00:00:00 [facility] DTaP, Unspecified 1998 Completed Univers ity of Formulation 00:00:00 [facility] Hep B, Adol or Pedi 1998 Completed Unive rsity of Dosage 00:00:00 [facility] HIB PRP-D,booster 1998 Completed Univers ity of 00:00:00 [facility] Poliovirus, Live, 1998 Completed Univers ity of Oral, Trivalent 00:00:00 [facility] DTaP, Unspecified 1998 Completed Univers ity of Formulation 00:00:00 [facility] Hep B, Adol or Pedi 1998 Completed Unive rsity of Dosage 00:00:00 [facility] HIB PRP-D,booster 1998 Completed Univers ity of 00:00:00 [facility] Poliovirus, Live, 1998 Completed Univers ity of Oral, Trivalent 00:00:00 [facility] DTaP, Unspecified 1998 Completed Univers ity of Formulation 00:00:00 [facility] Hep B, Adol or Pedi 1998 Completed Unive rsity of Dosage 00:00:00 [facility] HIB PRP-D,booster 1998 Completed Univers ity of 00:00:00 [facility] Poliovirus, Live, 1998 Completed Univers ity of Oral, Trivalent 00:00:00 [facility] DTaP, Unspecified 1998 Completed Univers ity of Formulation 00:00:00 [facility] Hep B, Adol or Pedi 1998 Completed Unive rsity of Dosage 00:00:00 [facility] HIB PRP-D,booster 1998 Completed Univers ity of 00:00:00 [facility] Poliovirus, Live, 1998 Completed Univers ity of Oral, Trivalent 00:00:00 [facility] DTaP, Unspecified 1998 Completed Univers ity of Formulation 00:00:00 [facility] Hep B, Adol or Pedi 1998 Completed Unive rsity of Dosage 00:00:00 [facility] Haemophilus 1998 Completed University of influenzae type b 00:00:00 [facility] edical vaccine, conjugate Branch unspecified formulation IPV 1998 Completed University of 00:00:00 [facility] DTaP, Unspecified 1998 Completed Univers ity of Formulation 00:00:00 [facility] Hep B, Adol or Pedi 1998 Completed Unive rsity of Dosage 00:00:00 [facility] Haemophilus 1998 Completed University of influenzae type b 00:00:00 [facility] edical vaccine, conjugate Branch unspecified formulation IPV 1998 Completed University of 00:00:00 [facility] DTaP, Unspecified 1998 Completed Univers ity of Formulation 00:00:00 [facility] Hep B, Adol or Pedi 1998 Completed Unive rsity of Dosage 00:00:00 [facility] Haemophilus 1998 Completed University of influenzae type b 00:00:00 [facility] edical vaccine, conjugate Branch unspecified formulation IPV 1998 Completed University of 00:00:00 [facility] DTaP, Unspecified 1998 Completed Univers ity of Formulation 00:00:00 [facility] Hep B, Adol or Pedi 1998 Completed Unive rsity of Dosage 00:00:00 [facility] Haemophilus 1998 Completed University of influenzae type b 00:00:00 [facility] edical vaccine, conjugate Branch unspecified formulation IPV 1998 Completed University of 00:00:00 [facility] DTaP, Unspecified 1998 Completed Univers ity of Formulation 00:00:00 [facility] Hep B, Adol or Pedi 1998 Completed Unive rsity of Dosage 00:00:00 [facility] Haemophilus 1998 Completed University of influenzae type b 00:00:00 [facility] edical vaccine, conjugate Branch unspecified formulation IPV 1998 Completed University of 00:00:00 [facility] Hep B, Adol or Pedi 1998 Completed Unive rsity of Dosage 00:00:00 [facility] Hep B, Adol or Pedi 1998 Completed Unive rsity of Dosage 00:00:00 [facility] Hep B, Adol or Pedi 1998 Completed Unive rsity of Dosage 00:00:00 [facility] Hep B, Adol or Pedi 1998 Completed Unive rsity of Dosage 00:00:00 [facility] Hep B, Adol or Pedi 1998 Completed Unive rsity of Dosage 00:00:00 [facility] Vital Signs Vital Name Observation Time Observation Value Comments Source Systolic blood 2022-10-06 13:30:00 113 mm[Hg] Univer sity of pressure [facility] Diastolic blood 2022-10-06 13:30:00 73 mm[Hg] Unive rsity of pressure [facility] Heart rate 2022-10-06 13:30:00 77 /min [facility] Body temperature 2022-10-06 13:30:00 36.17 [facility] 2022-10-06 13:30:00 18 /[facility] height 2022-10-06 13:30:00 162.6 cm [facility] Body weight 2022-10-06 13:30:00 106.051 kg [facility] BMI 2022-10-06 13:30:00 40.13 kg/m2 [facility] Systolic blood 2022-09-25 18:35:00 125 mm[Hg] Univer sity of pressure [facility] Diastolic blood 2022-09-25 18:35:00 84 mm[Hg] Unive rsity of pressure [facility] Heart rate 2022-09-25 18:35:00 110 /min [facility] Body temperature 2022-09-25 18:35:00 36.78 Isa Univ ers[facility] of [facility] Respiratory rate 2022-09-25 18:35:00 20 /min Univ ers[facility] of [facility] Body height 2022-09-25 18:35:00 162.6 cm [facility] Body weight 2022-09-25 18:35:00 103.964 kg [facility] BMI 2022-09-25 18:35:00 39.34 kg/m2 [facility] Systolic blood 2020-02-20 18:45:00 109 mm[Hg] Univer sity of pressure [facility] Diastolic blood 2020-02-20 18:45:00 73 mm[Hg] Unive rsity of pressure [facility] Heart rate 2020-02-20 18:45:00 77 /min [facility] Body temperature 2020-02-20 18:45:00 36.89 Isa [facility] Respiratory rate 2020-02-20 18:45:00 16 /min Univ ers[facility] Body height 2020-02-20 18:45:00 162.6 cm [facility] Body weight 2020-02-20 18:45:00 91.768 kg [facility] BMI 2020-02-20 18:45:00 34.73 kg/m2 [facility] Systolic blood 2019-09-23 20:15:00 125 mm[Hg] Univer sity of pressure [facility] Diastolic blood 2019-09-23 20:15:00 77 mm[Hg] Unive rsity of pressure [facility] Heart rate 2019-09-23 20:15:00 78 /min [facility] Body temperature 2019-09-23 20:15:00 37.11 Isa Univ [facility] Respiratory rate 2019-09-23 20:15:00 16 /min Univ ers[facility] Body height 2019-09-23 20:15:00 162.6 cm [facility] Body weight 2019-09-23 20:15:00 85.475 kg [facility] BMI 2019-09-23 20:15:00 32.35 kg/m2 [facility] Systolic blood 2019-09-01 16:15:00 114 mm[Hg] Univer sity of pressure [facility] Diastolic blood 2019-09-01 16:15:00 68 mm[Hg] Unive rsity of pressure [facility] Heart rate 2019-09-01 16:15:00 74 /min [facility] Body temperature 2019-09-01 16:15:00 36.72 Isa [facility] Respiratory rate 2019-09-01 16:15:00 16 /min Univ [facility] Body height 2019-09-01 16:15:00 162.6 cm [facility] Body weight 2019-09-01 16:15:00 85.333 kg [facility] BMI 2019-09-01 16:15:00 32.29 kg/m2 [facility] Systolic blood 2019-08-18 21:56:00 124 mm[Hg] Univer [facility]ity of pressure [facility] Diastolic blood 2019-08-18 21:56:00 80 mm[Hg] Unive rsity of pressure [facility] Heart rate 2019-08-18 21:56:00 92 /min [facility] Body temperature 2019-08-18 21:56:00 37.22 Isa Univ [facility] Respiratory rate 2019-08-18 21:56:00 16 /min Univ ers[facility] Body height 2019-08-18 21:56:00 160 cm [facility] Body weight 2019-08-18 21:56:00 86.592 kg [facility] BMI 2019-08-18 21:56:00 33.82 kg/m2 [facility] Systolic blood 2019-08-13 14:00:00 119 mm[Hg] Univer sity of pressure [facility] Diastolic blood 2019-08-13 14:00:00 76 mm[Hg] Unive rsity of pressure [facility] Heart rate 2019-08-13 14:00:00 74 /min [facility] [place] Body temperature 2019-08-13 14:00:00 37 Isa Univ ersity of [facility] Respiratory rate 2019-08-13 14:00:00 18 /min Univ ersity of [facility] Oxygen saturation in 2019-08-13 14:00:00 99 /min University of Arterial blood by [facility] Pulse oximetry Branch Body height 2019-08-11 02:00:00 162 cm [facility] Body weight 2019-08-11 02:00:00 94.348 kg [facility] BMI 2019-08-11 02:00:00 35.95 kg/m2 [facility] of [facility] Systolic blood 2019-08-03 19:39:00 116 mm[Hg] Univer sity of pressure [facility] Diastolic blood 2019-08-03 19:39:00 75 mm[Hg] Unive rsity of pressure [facility] Heart rate 2019-08-03 19:39:00 116 /min [facility] [place] Body temperature 2019-08-03 19:39:00 37 Isa [facility] Respiratory rate 2019-08-03 19:39:00 16 /min Univ ersity of [facility] Body height 2019-08-03 19:39:00 165.1 cm [facility] Body weight 2019-08-03 19:39:00 95.369 kg [facility] BMI 2019-08-03 19:39:00 34.99 kg/m2 [facility] Systolic blood 2019-07-26 21:14:00 134 mm[Hg] Univer [facility]ity of pressure [facility] Diastolic blood 2019-07-26 21:14:00 87 mm[Hg] Unive rsity of pressure [facility] Heart rate 2019-07-26 21:14:00 92 /min [facility] Body temperature 2019-07-26 21:14:00 37.72 Isa [facility] Respiratory rate 2019-07-26 21:14:00 16 /min Univ [facility] Body height 2019-07-26 21:14:00 165.1 cm [facility] Body weight 2019-07-26 21:14:00 96.389 kg [facility] BMI 2019-07-26 21:14:00 35.36 kg/m2 [facility] Systolic blood 2019-03-22 19:25:00 113 mm[Hg] Univer sity of pressure [facility] Diastolic blood 2019-03-22 19:25:00 72 mm[Hg] Unive rsity of pressure [facility] Heart rate 2019-03-22 19:25:00 93 /min [facility] Body temperature 2019-03-22 19:25:00 36.94 Isa Univ [facility] Respiratory rate 2019-03-22 19:25:00 16 /min Univ ers[facility] Body height 2019-03-22 19:25:00 160 cm [facility] Body weight 2019-03-22 19:25:00 93.441 kg [facility] [place] BMI 2019-03-22 19:25:00 36.49 kg/m2 [facility] Systolic blood 2019-02-21 19:44:00 134 mm[Hg] Univer [facility]ity of pressure [facility] Diastolic blood 2019-02-21 19:44:00 77 mm[Hg] Unive rsity of pressure [facility] Heart rate 2019-02-21 19:44:00 101 /min [facility] Body temperature 2019-02-21 19:44:00 37 Isa [facility] Respiratory rate 2019-02-21 19:44:00 16 /min [facility] [place] Body height 2019-02-21 19:44:00 160 cm [facility] Body weight 2019-02-21 19:44:00 94.121 kg [facility] BMI 2019-02-21 19:44:00 36.76 kg/m2 Universi ty [facility] [place] Procedures Procedure Date / Time Performing Clinician Source Performed DISCLOSURE AND CONSENT, 2022-10-06 05:01:00 Doctor Unassigned, N o [facility] MEDICAL AND SURGICAL Name Medical [facility] PROCEDURES GARDASIL 9 (HPV 9V) 2022-09-25 18:54:20 Theresa Lord [facility] VACCINE [facility] ASSIGNMENT OF BENEFITS 2022-09-25 18:15:42 Doctor Unassigned, No [facility] [place] Name Medical [facility] GARDASIL 9 (HPV 9V) 2020-02-20 19:16:37 Theresa Lord [facility] ASSIGNMENT OF BENEFITS 2020-02-20 18:38:40 Doctor Unassigned, No [facility] GARDASIL 9 (HPV 9V) 2019-09-23 21:08:55 Theresa Lord [facility] POCT TEST 2019-09-23 20:16:00 Theresa Lord [facility] CONSENT FOR 2019-09-23 05:01:00 Doctor Unassigned, No [facility] CBC WITH DIFFERENTIAL 2019-08-12 09:42:00 Tasha Alberto [facility] VENOUS CORD GAS 2019-08-11 23:27:00 Pedro Carranza [facility] URINALYSIS 2019-08-11 12:19:00 [place] [facility] PROTEIN CREAT RATIO 2019-08-11 12:19:00 Sergio [facility] URINE RANDOM [facility] LACTATE DEHYDROGENASE 2019-08-11 07:31:00 Sergio [facility] CBC WITH DIFFERENTIAL 2019-08-11 07:31:00 Sergio [facility] SGOT (ASPARTATE AMINO 2019-08-11 04:05:00 Sergio [facility] TRANSFER) [facility] CREATININE 2019-08-11 04:05:00 Sergio [facility] ALANINE AMINO 2019-08-11 04:05:00 Sergio [facility] TRANSFERASE(SGPT [facility] URIC ACID 2019-08-11 04:05:00 Sergio [facility] HEPATITIS B SURFACE 2019-08-11 04:05:00 Pedro Carranza [facility] ANTIGEN [facility] GALV ONLY - SYPHILIS 2019-08-11 04:05:00 Pedro Carranza [facility] IGG/IGM [facility] HB ABO GROUPING 2019-08-11 04:04:00 Pedro Carranza [facility] RHO (D) IMMUNE GLOBULIN 2019-08-11 04:04:00 Tasha Alberto [facility] POCT URINALYSIS 2019-08-03 19:42:00 Theresa Lord [facility] POCT URINALYSIS 2019-07-26 21:46:00 Theresa Lord [facility] POCT URINALYSIS 2019-03-22 19:31:00 Theresa Lord [facility] POCT URINALYSIS 2019-02-21 19:44:00 Theresa Lord [facility] Encounters Start End Encounter Admission Attending Care Care Encounter Source Date/Time Date/Time Type Type Clinicians Facility Department ID 2022-10-06 2022-10-06 Outpatient R CASTRO [facility] [id number] Univers 08:30:00 08:59:30 JOSIE huang [facility] 2022-10-06 2022-10-06 Office Castro [facility] 1.2.840.114 [id number] Univers 08:30:00 08:59:30 Visit Josie Salazar MANAGER ADMINISTRATION 350.1.13.10 i ty [facility] 4.2.7.2.686 Darrin as MATERNAL [phone] Med ical & CHILD [address] [place] [address] 2022-10-06 2022-10-06 Orders Doctor ARELI 1.2.840.114 [id number] Univers 00:00:00 00:00:00 Only Unassigned, LINDA 350.1.13.10 ity of [place] [facility] 4.2.7.2.686 Darrin as [phone] [address] 2022-09-25 2022-09-25 Outpatient R RISA [facility] [id number] Univers 13:15:00 14:35:28 THERESA huang o f [facility] 2022-09-25 2022-09-25 Office Risa [facility] [id number] Univers 13:15:00 14:35:28 Visit Theresa Farfan MANAGER ADMINISTRATION 350.1.13.[address] [facility] 4.2.7.2.686 Darrin as MATERNAL [phone] [facility] [address] [place] [address] 2022-09-25 2022-09-25 Orders Doctor ARELI 1.2.840.114 [id number] Univers 00:00:00 00:00:00 Only Unassigned, LINDA 350.1.13.10 [place] of [place] [facility] 4.2.7.2.686 Darrin as [phone] [address] 2020-05-23 2020-05-23 Outpatient R [facility] [id number] Univers 14:00:00 14:00:00 ity of [facility] 2020-02-20 2020-02-20 [facility] 1.2 .840.114 [id number] Univers 13:40:12 14:05:43 Visit Theresa Lord MANAGER ADMINISTRATION 350.1.13. [address] [facility] 4.2.7.2.686 Darrin as MATERNAL [phone] [facility] [address] [place] [address] 2020-02-20 2020-02-20 Outpatient R RISA [facility] [id number] Univers 13:30:00 13:30:00 THERESA trevino [facility] 2020-02-20 2020-02-20 Orders Doctor ARELI 1.2.840.114 [id number] Univers 00:00:00 00:00:00 Only Unassigned, LINDA 350.1.13.10 [facility] 4.2.7.2.686 Darrin as [phone] [address] 2019-11-23 2019-11-23 Outpatient R [facility] [id number] Univers 13:00:00 13:00:00 ity of [facility] 2019-11-09 2019-11-09 Outpatient R RISA [facility] [id number] Univers 14:15:00 14:15:00 THERESA henson [facility] 2019-11-09 2019-11-09 Telemedici Risa [facility] 1.2.840.114 [id number] Univers 12:42:08 12:57:08 ne Visit Theresa C MANAGER ADMINISTRATION 350.1.13.[address] [facility] 4.2.7.2.686 Darrin as MATERNAL [phone] [facility] & [address] 2019-10-07 2019-10-07 [facility] [id number] Univers 13:30:00 13:30:00 THERESA ity o [facility] 2019-10-06 2019-10-06 [facility] [id number] Univers 08:45:00 08:45:00 THERESA ity o [facility] 2019-10-06 2019-10-06 Telephone [facility] 1.2.840.114 [id number] Univers 00:00:00 00:00:00 Theresa C MANAGER ADMINISTRATION 350.1.13.[address] [facility] 4.2.7.2.686 Darrin as MATERNAL [id number] [address] 2019-09-23 2019-09-23 Office [facility] 1.2.674.653 [id number] Univers 15:04:55 16:09:38 Visit Theresa C MANAGER ADMINISTRATION 350.1.13.[address] [facility] 4.2.7.2.686 Darrin as MATERNAL [phone] [facility] & [address] 2019-09-23 2019-09-23 Outpatient R [facility] [id number] Univers 15:00:00 15:00:00 THERESA ity o [facility] 2019-09-23 2019-09-23 Orders Doctor ARELI 1.2.840.114 [id number] Univers 00:00:00 00:00:00 Only Unassigned, LINDA 350.1.13.10 [facility] 4.2.7.2.686 Darrin as [phone] [address] 2019-09-01 2019-09-01 Routine [facility] 1.2.778.936 [id number] Univers 10:02:22 10:17:22 Theresa C MANAGER ADMINISTRATION 350.1.13.10 ity of Visit REGIONAL 4.2.7.2.686 Darrin as MATERNAL [phone] [facility] ical & CHILD [address] [place] [address] 2019-09-01 2019-09-01 Outpatient R KAN LORD [facility] [id number] Univers 09:30:00 09:30:00 THERESA ity o f [facility] 2019-08-18 2019-08-18 Nurse Visit, Ang-Rmchp Nurse [facility] 1.2 .840.114 [id number] Univers 09:28:08 09:52:41 Visit Theresa Lord MANAGER ADMINISTRATION 350.1.13. [address] [facility] 4.2.7.2.686 Darrin as MATERNAL [id number] [facility] [address] [place] [address] 2019-08-10 2019-08-13 [facility] ARELI Vickers 1.2.410.747 [id number] Univers 18:34:00 14:36:00 Encounter Sabrina MCKEON 350.1.13.10 ity of HOSPITAL 4.2.7.2.686 Darrin as [phone] [address] 2019-08-03 2019-08-03 Routine Risa [facility] 1.2.980.198 [id number] Univers 13:13:09 13:53:30 Theresa C MANAGER ADMINISTRATION 350.1.13.10 ity of Visit REGIONAL 4.2.7.2.686 Darrin as MATERNAL [id number] [facility] [address] [place] [address] 2019-07-26 2019-07-26 Routine Risa [facility] 1.2.458.535 [id number] Univers 14:51:29 15:37:05 Theresa C MANAGER ADMINISTRATION 350.1.13.10 ity of Visit REGIONAL 4.2.7.2.686 Darrin as MATERNAL [id number] [facility] & CHILD [address] [place] [address] 2019-03-22 2019-03-22 Routine Tammi Lordola C [facility] 1.2.8 40.114 [id number] Univers 14:01:38 14:51:32 Ami Carreno MANAGER ADMINISTRATION 350.1.13.10 ity of Visit REGIONAL 4.2.7.2.686 Darrin as MATERNAL [phone] [facility] ical & CHILD [address] [facility] 2019-03-22 2019-03-22 Telephone Risa SDEDUARDA 1.2.840.114 [id number] Univers 00:00:00 00:00:00 Theresa Farfan MANAGER ADMINISTRATION 350.1.13.10 ity of REGIONAL 4.2.7.2.686 Darrin [address] MATERNAL [phone] [facility] ical & CHILD [address] [place] [address] 2019-02-23 2019-02-23 Bean Sprout Grower Ultrasound, Crystal [facility] 1.2 .840.114 [id number] Univers 11:21:38 11:46:18 Visit Sabrina Vickers MANAGER ADMINISTRATION 350.1.13.10 ity of REGIONAL 4.2.7.2.686 Darrin [address] MATERNAL [phone] [facility] ical & CHILD [facility] 2019-02-23 2019-02-23 Abstract Robles [facility] 1.2.840.114 [id number] Univers 00:00:00 00:00:00 Radha Moody MANAGER ADMINISTRATION 350.1.13.10 ity of REGIONAL 4.2.7.2.686 Darrin as MATERNAL [id number] [facility] [address] [place] [address] 2019-02-21 2019-02-21 Routine oRbles [facility] 1.2.840.114 [id number] Univers 14:37:15 15:06:20 Stephennda R MANAGER ADMINISTRATION 350.1.13.10 ity of Visit REGIONAL 4.2.7.2.686 Darrin [address] MATERNAL [phone] [facility] ical & CHILD [address] [place] [address] Results Test Description Test Time Test Comments Results Result Comments Source POCT TEST 2019-09-23 20:17:00 Test Item Value Reference Range Interpretation Comme nts POCT PREG (test code = 1605) Negative On board controls acceptable with C Line (test code = 3574) Yes POCT PREG LOT # (test code = 3575) POCT PREG TEST DATE (test code = 3576) [facility] [id number] 20:17:00 Test Item Value Reference Range Interpretation Comments POCT PREG (test code = 1605) Negative On board controls acceptable with C Yes Line (test code = 3574) POCT PREG LOT # (test code = 3575) POCT PREG TEST DATE (test code = 3576) [facility] - SYPHILIS [id number] 14:54:00 Test Item Value Reference Range Interpretation Comments Syphilis IgG/IgM (test Non-reactive Non-reactive code = 38349-2) FARHAD (test code = FARHAD) Non-reactive - No serologic evidence of T. pallidum infection. Cannot exclude incubating or early syphilis. Submit a second specimen in 2-4 weeks if syphilis is clinically suspected. Equivocal - Further testing to follow. Reactive - Further testing to follow. Lab Interpretation (test Normal code = 69991-5) [facility] WITH [id number] 10:19:00 Test Item Value Reference Range Interpretation Comments WBC (test code = See_Comment H [Automated 8390-2) message] The system which generated this result transmit darren reference range : 4.30 - 11.10 10*3/?L. The reference range was not used to interpret this result as normal/abnormal . RBC (test code = See_Comment [Automated 789-8) message] The system which generated this result [...] RDW-SD (test code = 44.3 fL 39-49.9 68226-5) RDW-CV (test code = 16.9 % 12-15.5 H 788-0) PLT (test code = See_Comment [Automated 777-3) message] The system which generated this result transmit darren reference range : 166 - 358 10*3/ ?L. The reference range was not u sed to interpret th is result as normal/abnormal . MPV (test code = 12.1 fL 9.5-12.9 10163-2) NRBC/100 WBC (test See_Comment [Automat ed code = 1542609569) message] The system which generated this result transmit darren reference range : 0.0 - 10.0 /100 WBCs. The reference range was not used to interpret this result as normal/abnormal . NRBC x10^3 (test code <0.01 See_Comment [Auto mated = 3081505340) message] The system which generated this result transmit darren reference range : 10*3/?L. The reference range was not used to interpret this result as normal/abnormal . GRAN MAT (NEUT) % 70.9 % (test code = 770-8) IMM GRAN % (test code 0.50 % = 3204514116) LYMPH % (test code = 21.0 % 736-9) MONO % (test code = 7.2 % 5905-5) EOS % (test code = 0.2 % 713-8) BASO % (test code = 0.2 % 706-2) GRAN MAT x10^3(ANC) 10.09 10*3/uL 1.88-7.09 H (test code = 0837476474) IMM GRAN x10^3 (test 0.07 10*3/uL 0-0.06 H code = 3045732386) LYMPH x10^3 (test code 2.98 10*3/uL 1.32-3.29 = 731-0) MONO x10^3 (test code 1.02 10*3/uL 0.33-0.92 H = 742-7) EOS x10^3 (test code = 0.03 10*3/uL 0.03-0.39 711-2) BASO x10^3 (test code 0.03 10*3/uL 0.01-0.07 = 704-7) Lab Interpretation Abnormal (test code = 87484-9) [facility] IMMUNE [id number] 02:49:21 Test Item Value Reference Range Interpretation Comments RHIG CANDIDATE? No- see comment Patient i s not a (test code = candidate for R hIg- 5055) Patient is Rh Positive.Perfor med at [facility] Laboratory Services - [facility] Blood [address] [place] [address]Skph Free: [phone] A No. [id number] [facility] BranchVENOUS CORD [id number] 23:39:00 Test Item Value Reference Range Interpretation Comments VENOUS BASE EXCESS, mEq/L CORD (test code = 7690253325) VENOUS PH, CORD (test 7.25-7.45 code = 3872770568) VENOUS PC02, CORD See_Comment [Automate d message] The (test code = system which ge nerated 2382202544) this result tra nsmitted reference range : 27 - 49 mmHg. The refer ence range was not used to interpret this result as normal/abnormal . VENOUS PO2, CORD (test See_Comment [Aut omated message] The code = 1386493287) system wh [facility] generated this result tra nsmitted reference range : 17 - 41 mmHg. The refer ence range was not used to interpret this result as normal/abnormal . VENOUS BICARBONATE, See_Comment [Automa darren message] The CORD (test code = system whi ch generated 3868127620) this result tra nsmitted reference range : 12 - 29 mEq/L. The refe rence range was not used to interpret this result as normal/abnormal . [facility] BranchARTERIAL CORD [id number] 23:39:00 Test Item Value Reference Range Interpretation Comments BASE EXCESS, CORD mEq/L (test code = 5129689855) AC PH, CORD (BEAKER) 7.18-7.38 (test code = 7168873830) PC02, CORD (test code See_Comment [Auto mated message] The = 8558863646) system which g enerated this result transmit darren reference range : 32 - 66 mmHg. The refer ence range was not used to interpret this result as normal/abnormal . PO2, CORD (test code See_Comment [Autom ated message] The = 2441057780) system which g enerated this result transmit darren reference range : 10 - 30 mmHg. The refer ence range was not used to interpret this result as normal/abnormal . BICARBONATE, CORD See_Comment [Automate d message] The (test code = system which ge nerated this 9088069025) result transmit darren reference range : 17 - 27 mEq/L. The refe rence range was not used to interpret this result as normal/abnormal . [facility] CREAT Ratio Urine [id number] 13:03:00 Test Item Value Reference Range Interpretation Comments T. PROT U (test code = 2888-6) 12 mg/dL CREAT U (test code = 0368551581) 215.7 mg/dL Protein/Creatinine Ratio Urine 0.0-2.0 (test code = 4591918040) [facility] HospitalUrinalysis2020-02-06 12:45:00 Test Item Value Reference Range Interpretation Comments APPEARANCE (test code = Hazy Clear A 2178116772) COLOR (test code = Yellow Yellow 4302839672) PH (test code = 4.8-8.0 4327879742) SP GRAVITY (test code = 1.003-1.030 8608968753) GLU U QUAL (test code = Normal Normal 0047943041) BLOOD (test code = Negative Negative INTERFERE NCE FROM 4730477596) ASCORBIC ACID M AY CAUSE FALSE NEG ATIVE RESULT KETONES (test code = 5 mg/dL Negative A 7209470826) PROTEIN (test code = 30 mg/dL Negative A 2887-8) UROBILIN (test code = 4.0 mg/dL Normal A 8846259516) BILIRUBIN (test code = Negative Negative 0165595922) NITRITE (test code = Negative Negative 8222533681) LEUK REFUGIO (test code = 25/uL Negative A 6485924358) RBC/HPF (test code = See_Comment [Autom ated message] 3722194080) The system RUN generated this result transmitted ref erence range: 0 - 3 HP F. The reference range was not used to int erpret this result as normal/abnormal . WBC/HPF (test code = See_Comment H [Autom ated message] 3627577517) The system RUN generated this result transmitted ref erence range: 0 - 5 HP F. The reference range was not used to int erpret this result as normal/abnormal . BACTERIA (test code = Moderate Negative A 1773097248) MUCOUS (test code = Marked Negative LPF A 9293220625) SQ EPITH (test code = See_Comment H [Auto mated message] 3746347759) The system RUN generated this result transmitted ref erence range: <=2 HPF. The reference range was not used to int erpret this result as normal/abnormal . Lab Interpretation Abnormal (test code = 89903-6) [facility] Surface [id number] 09:09:00 Test Item Value Reference Range Interpretation Comments HBsAg Semi-Quantitative (test code = Negative Negative 5195-3) [facility] HospitalLactate [id number] 08:41:00 Test Item Value Reference Range Interpretation Comments LDH (test code = 3743239413) 433 U/L 300-600 Lab Interpretation (test code = Normal 85241-1) [facility] HospitalUric Acid [id number] 08:11:00 Test Item Value Reference Range Interpretation Comments URIC ACID (test code = 7007598154) 4.1 mg/dL 2.9-6 Lab Interpretation (test code = Normal 04426-5) [facility] [id number] 08:11:00 Test Item Value Reference Range Interpretation Comments CREATININE (test code 0.50 mg/dL 0.5-1.04 = 6376349600) eGFR Calculation mL/min/1.73m2 (Non-) (test code = 2890129470) eGFR Calculation mL/min/1.73m2 () (test code = 4587225435) FARHAD (test code = FARHAD) Association of [...] or urine or abnormalities in imaging tests). [facility] HospitalSGOT (Asparate Amino Transfer)2019-08-11 08:11:00 Test Item Value Reference Range Interpretation Comments AST(SGOT) (test code = 0170427923) 22 U/L 13-40 Lab Interpretation (test code = Normal 12074-6) [facility] HospitalAlanine Amino Transferase (SGPT)2019-08-11 08:11:00 Test Item Value Reference Range Interpretation Comments ALTv (test code = 1742-6) 10 U/L 5-35 Lab Interpretation (test code = Normal 88582-4) [facility] WITH [id number] 07:44:00 Test Item Value Reference Range Interpretation Comments WBC (test code = See_Comment [Automated 0890-2) message] The sy stem which generated this result transmitted reference range : 4.30 - 11.10 10*3/?L. The reference range was not used to interpret this result as normal/abnormal . RBC (test code = See_Comment [Automated 829-8) message] The sy stem which generated this [...] RDW-SD (test code = 43.4 fL 39-49.9 48098-7) RDW-CV (test code = 17.0 % 12-15.5 H 788-0) PLT (test code = See_Comment [Automated 777-3) message] The sy stem which generated this result transmitted reference range : 166 - 358 10*3/ ?L. The reference r gladys was not used to interpret this result as normal/abnormal . MPV (test code = 11.5 fL 9.5-12.9 78311-3) NRBC/100 WBC (test See_Comment [Automat ed code = 6737384017) message] The system which generated this result transmitted reference range : 0.0 - 10.0 /100 WBCs. The refer ence range was not u sed to interpret th is result as normal/abnormal . NRBC x10^3 (test code <0.01 See_Comment [Auto mated = 9207610699) message] The s ystem which generated this result transmitted reference range : 10*3/?L. The reference range was not used to interpret this result as normal/abnormal . GRAN MAT (NEUT) % 50.4 % (test code = 770-8) IMM GRAN % (test code 0.30 % = 7443030829) LYMPH % (test code = 39.9 % 736-9) MONO % (test code = 8.3 % 5905-5) EOS % (test code = 0.8 % 713-8) BASO % (test code = 0.3 % 706-2) GRAN MAT x10^3(ANC) 3.84 10*3/uL 1.88-7.09 (test code = 2729054401) IMM GRAN x10^3 (test <0.03 0-0.06 code = 7842380436) LYMPH x10^3 (test code 3.04 10*3/uL 1.32-3.29 = 731-0) MONO x10^3 (test code 0.63 10*3/uL 0.33-0.92 = 742-7) EOS x10^3 (test code = 0.06 10*3/uL 0.03-0.39 711-2) BASO x10^3 (test code <0.03 0.01-0.07 = 704-7) Lab Interpretation Abnormal (test code = 48895-9) [facility] HospitalType and Screen - ONCE [id number] 04:44:04 Test Item Value Reference Range Interpretation Comments ABO & RH (test code O POSITIVE Performe d at [facility] = 20) Laboratory [facility] [facility] s [address]Mrgy Free: [phone] A No. [id number] IAT (test code = Negative Performed a t [facility] 1185) [facility] [facility] s [address]Siqt Free: [phone] A No. [id number] [facility] W SPECIFIC [id number] 19:42:00 Test Item Value Reference Range Interpretation [...] POCT U APPEAR (test code = 3267) [facility] W SPECIFIC [id number] 19:42:00 Test Item Value Reference Range Interpretation [...] POCT U APPEAR (test code = 3267) [facility] URINALYSIS W SPECIFIC [id number] 21:46:00 Test Item Value Reference Range Interpretation [...] POCT U APPEAR (test code = 3267) [facility] URINALYSIS W SPECIFIC [id number] 19:31:00 Test Item Value Reference Range Interpretation [...] POCT U APPEAR (test code = 3267) [facility] W SPECIFIC [id number] 19:45:00 Test Item Value Reference Range Interpretation [...] 3267) Lab Interpretation (test code = Abnormal 69588-3) [facility] HospitalPOCO URINALYSIS W SPECIFIC [id number] 19:45:00 Test Item Value Reference Range Interpretation [...] 3267) Lab Interpretation (test code = Abnormal 92833-5) [facility]"
--- NOTE | 2022-12-07 13:38 | EDPHYS ---
Physician Documentation [facility] Name: Emily Rahman Age: 22 yrs Sex: Female : 2000 Arrival Date: 12/07/2022 Time: 13:25 Bed IW1 Private MD: ED Physician Naren Shah HPI: 12/07 14:07 This 22 yrs old Black Female presents to ER via Ambulatory with complaints of Toothache.snw 14:07 Onset: The symptoms/episode began/occurred suddenly, 3 day(s) ago. The patient has snw experienced similar episodes in the past. 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 - Social history:: Smoking status: Patient denies any tobacco usage or history of. ROS: 14:07 Constitutional: Negative for fever, chills, and weight loss, Eyes: Negative for injury, snw pain, redness, and discharge, Neck: Negative for injury, pain, and swelling, Cardiovascular: Negative for chest pain, palpitations, and edema, Respiratory: Negative for shortness of breath, cough, wheezing, and pleuritic chest pain, Abdomen/GI: Negative for abdominal pain, nausea, vomiting, diarrhea, and constipation, Back: Negative for injury and pain, : Negative for injury, bleeding, discharge, and swelling, MS/Extremity: Negative for injury and deformity, Skin: Negative for injury, rash, and discoloration, Neuro: Negative for headache, weakness, numbness, tingling, and seizure, Psych: Negative for depression, anxiety, suicide ideation, homicidal ideation, and hallucinations. 14:07 ENT: Positive for dental pain, of the mouth and lower right second molar (#31). Exam: 14:06 Constitutional: This is a well developed, well nourished patient who is awake, alert, snw and in no acute distress. Head/Face: Normocephalic, atraumatic. Eyes: Pupils equal round and reactive to light, extra-ocular motions intact. Lids and lashes normal. Conjunctiva and sclera are non-icteric and not injected. Cornea within normal limits. Periorbital areas with no swelling, redness, or edema. Neck: Trachea midline, no thyromegaly or masses palpated, and no cervical lymphadenopathy. Supple, full range of motion without nuchal rigidity, or vertebral point tenderness. No Meningismus. Chest/axilla: Normal chest wall appearance and motion. Nontender with no deformity. No lesions are appreciated. Cardiovascular: Regular rate and rhythm with a normal S1 and S2. No gallops, murmurs, or rubs. Normal PMI, no JVD. No pulse deficits. Respiratory: Lungs have equal breath sounds bilaterally, clear to auscultation and percussion. No rales, rhonchi or wheezes noted. No increased work of breathing, no retractions or nasal flaring. Abdomen/GI: Soft, non-tender, with normal bowel sounds. No distension or tympany. No guarding or rebound. No evidence of tenderness throughout. Back: No spinal tenderness. No costovertebral tenderness. Full range of motion. Skin: Warm, dry with normal turgor. Normal color with no rashes, no lesions, and no evidence of cellulitis. MS/ Extremity: Pulses equal, no cyanosis. Neurovascular intact. Full, normal range of motion. Neuro: Awake and alert, GCS 15, oriented to person, place, time, and situation. Cranial nerves II-XII grossly intact. Motor strength 5/5 in all extremities. Sensory grossly intact. Cerebellar exam normal. Normal gait. Psych: Awake, alert, with orientation to person, place and time. Behavior, mood, and affect are within normal limits. 14:06 ENT: External ear(s): are unremarkable, TM's: are normal, Nose: is normal, Mouth: is normal, Posterior pharynx: is normal, Dental exam: dental caries, that is moderate, specifically in the lower right second molar (#31), pain, that is moderate, that is severe, specifically in the lower right second molar (#31), Voice: is normal. Vital Signs: 13:34 BP 129 / 84; Pulse 80; Resp 17; Temp 98.7; Pulse Ox 97% ; Weight 104.33 kg; Height 5 jl7 ft. 6 in. ; Pain 9/10; 13:34 Body Mass Index 37.12 (104.33 kg, 167.64 cm) jl7 13:34 Pain Scale: Adult jl7 MDM: 13:36 Differential diagnosis: dental caries, gingivitis, dental abscess. Data reviewed: vital snw signs, nurses notes. I considered the following discharge prescriptions or medication management in the emergency department Medications were administered in the Emergency Department. See MAR. Counseling: I had a detailed discussion with the patient and/or guardian regarding: the historical points, exam findings, and any diagnostic results supporting the discharge/admit diagnosis, the need for outpatient follow up, to return to the emergency department if symptoms worsen or persist or if there are any questions or concerns that arise at home. Special discussion: Based on the history and exam findings, there is no indication for further emergent testing or inpatient evaluation. I discussed with the patient/guardian the need to see a dentist for further evaluation of the symptoms. 13:37 Patient medically screened. snw Administered Medications: 13:44 Drug: Amoxicillin-Clavulanate PO 875 mg Route: PO; 7 13:44 Follow up: Response: Medication administered at discharge. jl7 13:44 Drug: HYDROcodone-acetaminophen PO 5 mg-325 mg 1 tabs Route: PO; 7 13:44 Follow up: Response: Medication administered at discharge. jl7 Disposition Summary: 12/07/22 13:37 Discharge Ordered Location: Home snw Condition: Stable snw Diagnosis - Dental caries, unspecified snw Followup: snw - With: Emergency Department - When: As needed - Reason: Worsening of condition Followup: snw - With: Private Physician - When: 2 - 3 days - Reason: Recheck today's complaints, Continuance of care, Re-evaluation by your physician Discharge Instructions: - Discharge Summary Sheet snw - Dental Caries, Adult snw - Dental Pain snw - Diet and Dental Disease snw Forms: - Medication Reconciliation Form snw - Thank You Letter snw - Antibiotic Education snw - Prescription Opioid Use snw Prescriptions: - chlorhexidine gluconate 0.12 % Mucous Membrane Mouthwash - swish 15 milliliter by BUCCAL route 2 times per day; 480 milliliter; Refills: snw 0, Product Selection Permitted - Augmentin 500-125 mg Oral Tablet - take 1 tablet by ORAL route every 8 hours for 10 days; 30 tablet; Refills: 0, snw Product Selection Permitted - Tramadol 50 mg Oral Tablet - take 1 tablet by ORAL route every 8 hours as needed; 12 tablet; Refills: 0, snw Product Selection Permitted Signatures: China Yoon, NATI-C BIBLE TEACHER-[employer] Steve Greer, RN RN jl7
--- NOTE | 2022-12-07 13:38 | ER ---
Nurse's Notes [facility] Name: Emily Rahman Age: 22 yrs Sex: Female : 2000 Arrival Date: 12/07/2022 Time: 13:25 Bed IW1 Private MD: Diagnosis: Dental caries, unspecified Presentation: 12/07 13:34 Chief complaint: Patient states: Right bottom tooth pain x 3-4 days. Coronavirus jl7 screen: At this time, the client does not indicate any symptoms associated with coronavirus-19. Ebola Screen: No symptoms or risks identified at this time. Initial Sepsis Screen: Does the patient meet any 2 criteria? No. Patient's initial sepsis screen is negative. Does the patient have a suspected source of infection? No. Patient's initial sepsis screen is negative. Risk Assessment: Do you want to hurt yourself or someone else? Patient reports no desire to harm self or others. Onset of symptoms was December 04, 2022. Care prior to arrival: None. 13:34 Method Of Arrival: Ambulatory jl7 13:34 Acuity: CUCA 4 jl7 Triage Assessment: 13:35 General: Appears in no apparent distress. uncomfortable, Behavior is calm, cooperative, jl7 appropriate for age. Pain: Complains of pain in mouth Pain currently is 9 out of 10 on a pain scale. EENT: Reports pain in mouth. 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 - Social history:: Smoking status: Patient denies any tobacco usage or history of. Vital Signs: 13:34 BP 129 / 84; Pulse 80; Resp 17; Temp 98.7; Pulse Ox 97% ; Weight 104.33 kg; Height 5 jl7 ft. 6 in. ; Pain 9/10; 13:34 Body Mass Index 37.12 (104.33 kg, 167.64 cm) jl7 13:34 Pain Scale: Adult jl7 ED Course: 13:29 Patient arrived in ED. mr 13:30 China Yoon FNP-C [facility]. snw 13:30 Naren Shah MD is Attending Physician. snw 13:34 Steve Greer, RN is Primary Nurse. jl7 13:35 Triage completed. jl7 13:35 Arm band placed on right wrist. jl7 13:44 Patient has correct armband on for positive identification. jl7 13:44 No provider procedures requiring assistance completed. Patient did not have IV access jl7 during this emergency room visit. Administered Medications: 13:44 Drug: Amoxicillin-Clavulanate PO 875 mg Route: PO; jl7 13:44 Follow up: Response: Medication administered at discharge. jl7 13:44 Drug: HYDROcodone-acetaminophen PO 5 mg-325 mg 1 tabs Route: PO; jl7 13:44 Follow up: Response: Medication administered at discharge. jl7 Medication: 13:44 VIS not applicable for this client. jl7 Outcome: 13:37 Discharge ordered by MD. snw 13:44 Discharged to home ambulatory. jl7 13:44 Condition: stable 13:44 Discharge instructions given to patient, Instructed on discharge instructions, follow up and referral plans. medication usage, Demonstrated understanding of instructions, follow-up care, medications, Prescriptions given X 3. 13:44 Patient left the ED. jl7 Signatures: China Yoon FNP-C INSIGHTS ANALYST-[facility] [place] mr Steve Greer, RN RN jl7
[2022-12-07] MEDS ORDERED: HYDROCODONE/APAP 5/325 MG TAB ONE (13:48)
[2022-12-07] MEDS ORDERED: AMOX/K CLAV 875 MG TAB ONE (13:48)
[2022-12-07 13:51] VITALS: BP 129/84; TEMP 98.7; O2SAT 97
== END 2022-12-07 13:44 | disposition home or self-care (01) ==
LOC: ER 13:25
DX: K02.9 Dental caries, unspecified (principal)
CPT/HCPCS: 99283

== ENCOUNTER 2023-02-22 13:12 | Emergency (ER) | payer OTHER ==
--- OUTSIDE RECORDS SUMMARY | 2023-02-22 13:17 | XMS REPORT | Continuity of Care Document ---
:2000 Author Organization [facility] t Address [address] [facility] [address] [place] [address] Care Team Providers Name Role Phone THERESA LORD Primary Care Physician Unavailable JOSIE ERAZO Attending Clinician Unavailable Josie Erazo CNM Attending Clinician Doctor Unassigned, [place] Attending Clinician Unavailable THERESA LORD Attending Clinician Unavailable Risa WHTheresa GRUBBS Attending Clinician [phone] Visit, AntonRmchp Nurse Attending Clinician Unavailable Sabrina Vickers MD Attending Clinician Ami Paige Attending Clinician Ultrasound, AntonMfjosiah Attending Clinician Unavailable Radha Barnett Attending Clinician Sabrina Vickers MD Admitting Clinician Payers Payer Name Policy Type Policy Number Effective Date Expiration Date S ource [place] OF [place] [id number] 2022 00:00:00 [place] [facility] [id number] 2019 HEALTH 00:00:00 Problems Condition Condition Condition Status Onset Resolution Last Treating Co mments Source Name Details Category Date Date Treatment Clinician Date Nexplanon Nexplanon Disease Active 2019- Uni vers in place in place 11-08 ity of 00:00: [place] 00 Medical Branch Other Other Disease Active Univers general general 5-06 [place] of counseling [place] and advice and advice 00 Me dical for for Branch contracept contracept margie margie management management Routine Routine Disease Active 2019- Univers 2-27 [place] of [place] [facility] Disease Active 2020-0 Univers (spontaneo (spontaneo 2-07 it y of [place] vaginal [place] vaginal [place] delivery[place] [facility] Single Single Disease Active 2020-0 Univers live live 2-07 it y of 00:: [place] [facility] History of History of Disease Active 2020-0 U nivers asthma asthma 2-07 ity of 00:00: [place] [facility] Gestationa Gestationa Disease Active 2020-0 U nivers l l 2-06 ity of hypertensi hypertensi [place] [facility] Gestationa Gestationa Disease Active 2020-0 U nivers l l 2-06 ity of hypertensi hypertensi [place] [facility] Obesity Obesity Disease Active 2019- Univers (BMI (BMI 2-05 ity of 30-39.9) 30-39.9) 00:00: [place] [facility] 39 weeks 39 weeks Disease Active 2019-0 Unive rs gestation gestation 2-05 ity of of of 00:00: [place] 00 [facility] Susceptibl Susceptibl Disease Active Overview : Univers e to e to 6-17 Formattin ity of varicella varicella 00:00: [place] of this [place] (non-immun (non-immun 00 note Me dical e), e), might be Branch currently currently different from the original. Address pp Multiparit Multiparit Disease Active U nivers y y 6-14 ity of 00:00: [facility] Obesity Obesity Disease Active 2016-07 Univers affecting affecting 0-18 [place] [facility] Branch Supervisio Supervisio Disease Active 2016-07 U nivers n of high n of high 0-18 ity of risk risk 00:00: [place] , , 00 Me dical antepartum antepartum Br anch Allergies, Adverse Reactions, Alerts Allergy Allergy Status Severity Reaction(s) Onset Inactive Treating Comm ents Source Name Type Date Date Clinician NO KNOWN Drug Active Univers ALLERGIE Class ity of S [facility] Social History Social Habit Start Date Stop Date Quantity Comments Source ASSERTION 2018-11-24 University of 00:00:00 [facility] Exposure to 2022-09-26 2022-10-06 Not sure [facility]-CoV-2 00:00:00 08:16:00 [facility] (event) [place] Tobacco use and 2022-10-06 2022-10-06 Smokeless tobacco Un iversity of exposure 00:00:00 00:00:00 non-user [facility] Alcohol intake 2022-10-06 2022-10-06 Current University of 00:00:00 00:00:00 non-drinker of [facility] alcohol (finding) [place] Alcohol Comment 2018-12-17 2018-12-17 last sexual Universi ty of 00:00:00 00:00:00 intercourse [facility] 12/09/2018 Branch Sex Assigned At [birth year] Universit y of 00:00:00 00:00:00 [facility] Smoking Status Start Date Stop Date Source Never smoked tobacco [facility] Medications Ordered Filled Start Stop Current Ordering Indication Dosage Frequency Signature Comments Components Source Medication Medication Date Date Medication? Clinician (SIG) Name Name etonogestre 2019- No [id number] 68mg Univers l -22 09-20 ity of (NEXPLANON) 21:45: 20:45 [place] implant 68 00 :00 Medical mg [place] etonogestre 2019- No [id number] 68mg 68 mg, Univers l -22 09-20 Subdermal, ity of (NEXPLANON) 21:45: 20:45 ONCE NOW, [place] implant 68 00 :00 1 dose, Medica l mg Fri [place] 09/23/19 at 1645, Routine
Use approved by: ELECTORATE OFFICER etonogestre 2020- No [id number] 68mg Univers l -20 -20 ity of (NEXPLANON) 21:45: 20:45 [place] implant 68 00 :00 Medical mg [place] etonogestre 2020- No [id number] 68mg 68 mg, Univers l -20 -20 Subdermal, ity of (NEXPLANON) 21:45: 20:45 ONCE NOW, [place] implant 68 00 :00 1 dose, Medica l mg Fri Branch 09/23/19 at 1645, Routine
Use approved by: ELECTORATE OFFICER varicella 2020-0 Yes .5mL 0.5 mL, Unive rs virus 2-08 Subcutaneo ity of vaccine 13:26: , [place] live 45 ONCE-PRIOR Medical (VARIVAX TO Branch (PF)) DISCHARGE, injection 1 dose, 0.5 mL Starting 08/13/19 at 0726, Until Discontinu ed, Routine, Give vaccine prior to discharge ferrous 2020-0 Yes 325mg 325 mg, Univer s sulfate 2- Oral, ity of tablet 325 15:00: DAILY, [place] mg 00 First dose Medical on Thu Branch 08/12/19 at 0900, Until Discontinu ed, Routine ibuprofen 2019-0 Yes 600mg 600 mg, Univ ers (IBU) 2- Oral, ity of tablet 600 02:45: Q6HPRN, [place] mg 55 Starting Medical [place] 08/11/19 Branch at 2044, Until Discontinu ed, Routine, Pain (scale 4-6) acetaminoph 2019-0 Yes 650mg 650 mg, Un yanira en 2-07 Oral, ity of (TYLENOL) 02:45: Q6HPRN, [place] tablet 650 55 Starting Medic al mg [facility] 08/11/19 Branch at 2044, Until Discontinu ed, Routine, Pain (scale 1-3) diphenhydrA 2019-0 Yes 25mg 25 mg, Univ ers MINE 2- Oral, ity of (BENADRYL) 02:45: Q6HPRN, [facility] s tablet 25 55 Starting Medica l mg [facility] 08/11/19 Branch at 2044, Until Discontinu ed, Routine, Sleep, Itching ondansetron 2020-0 Yes 4mg 4 mg, Slow Univers (ZOFRAN 2-07 IV Push, ity of (PF)) 02:45: Q8HPRN, [place] injection 4 55 Starting Medi surya mg [facility] 08/11/19 Branch at 2044, Until Discontinu ed, [...] ed, Routine, Perineum discomfort docusate 2020-0 Yes [id number] 240mg Take 1 Un yanira calcium 240 2-07 capsule by it y of mg capsule 00:00: mouth once [place] 00 daily as Medical needed for Branch Constipati on. ibuprofen 2020-0 Yes [id number] 600mg Take 1 U nivers 600 mg 2-07 tablet by ity of tablet 00:00: mouth [place] 00 every 6 Medical (six) Branch hours as needed (Pain). Take with food or milk. Iron Fum & 2020-0 Yes [id number] 1{capsu Take 1 Univers P-FA-Vit B 2-07 le} capsule by ity of & C No.9 00:00: mouth [place] (INTEGRA 00 daily. Medical PLUS) 125 Branch mg iron- 1 mg Cap docusate 2020-0 Yes [id number] 240mg Take 1 Un yanira calcium 240 2-07 capsule by it y of mg capsule 00:00: mouth once [place] 00 daily as Medical needed for Branch Constipati on. ibuprofen 2020-0 Yes [id number] 600mg Take 1 U nivers 600 mg 2-07 tablet by ity of tablet 00:00: mouth [place] 00 every 6 Medical (six) Branch hours as needed (Pain). Take with food or milk. Iron Fum & 2020-0 Yes [id number] 1{capsu Take 1 Univers P-FA-Vit B 2-07 le} capsule by ity of & C No.9 00:00: mouth [place] (INTEGRA 00 daily. Medical PLUS) 125 Branch mg iron- 1 mg Cap docusate 2020-0 Yes [id number] 240mg Take 1 Un yanira calcium 240 2-07 capsule by it y of mg capsule 00:00: mouth once [place] 00 daily as Medical needed for Branch Constipati on. ibuprofen 2020-0 Yes [id number] 600mg Take 1 U nivers 600 mg 2-07 tablet by ity of tablet 00:00: mouth [place] 00 every 6 Medical (six) Branch hours as needed (Pain). Take with food or milk. Iron Fum & 2020-0 Yes [id number] 1{capsu Take 1 Univers P-FA-Vit B 2-07 le} capsule by ity of & C No.9 00:00: mouth [place] (INTEGRA 00 daily. Medical PLUS) 125 Branch mg iron- 1 mg Cap docusate 2020-0 Yes [id number] 240mg Take 1 Un yanira calcium 240 2-07 capsule by it y of mg capsule 00:00: mouth once [place] 00 daily as Medical needed for Branch Constipati on. ibuprofen 2020-0 Yes [id number] 600mg Take 1 U nivers 600 mg 2-07 tablet by ity of tablet 00:00: mouth [place] 00 every 6 Medical (six) Branch hours as needed (Pain). Take with food or milk. Iron Fum & 2020-0 Yes [id number] 1{capsu Take 1 Univers P-FA-Vit B 2-07 le} capsule by ity of & C No.9 00:00: mouth [place] (INTEGRA 00 daily. Medical PLUS) 125 Branch mg iron- 1 mg Cap docusate 2020-0 Yes [id number] 240mg Take 1 Un yanira calcium 240 2-07 capsule by it y of mg capsule 00:00: mouth once [place] 00 daily as Medical needed for Branch Constipati on. ibuprofen 2020-0 Yes [id number] 600mg Take 1 U nivers 600 mg 2-07 tablet by ity of tablet 00:00: mouth [place] 00 every 6 Medical (six) Branch hours as needed (Pain). Take with food or milk. Iron Fum & 2020-0 Yes [id number] 1{capsu Take 1 Univers P-FA-Vit B 2-07 le} capsule by ity of & C No.9 00:00: mouth [place] (INTEGRA 00 daily. Medical PLUS) 125 Branch mg iron- 1 mg Cap docusate 2020-0 Yes [id number] 240mg Take 1 Un yanira calcium 240 2-07 capsule by it y of mg capsule 00:00: mouth once [place] 00 daily as Medical needed for Branch Constipati on. ibuprofen 2020-0 Yes [id number] 600mg Take 1 U nivers 600 mg 2-07 tablet by ity of tablet 00:00: mouth [place] every 6 Medical (six) Branch hours as needed (Pain). Take with food or milk. Iron Fum & 2020-0 Yes [id number] 1{capsu Take 1 Univers P-FA-Vit B 2-07 le} capsule by ity of & C No.9 00:00: mouth [place] (INTEGRA 00 daily. Medical PLUS) 125 Branch mg iron- 1 mg Cap docusate 2020-0 Yes [id number] 240mg Take 1 Un yanira calcium 240 2-07 capsule by it y of mg capsule 00:00: mouth once [place] 00 daily as Medical needed for Branch Constipati on. ibuprofen 2020-0 Yes [id number] 600mg Take 1 U nivers 600 mg 2-07 tablet by ity of tablet 00:00: mouth [place] 00 every 6 Medical (six) Branch hours as needed (Pain). Take with food or milk. Iron Fum & 2020-0 Yes [id number] 1{capsu Take 1 Univers P-FA-Vit B 2-07 le} capsule by ity of & C No.9 00:00: mouth [place] (INTEGRA 00 daily. Medical PLUS) 125 Branch mg iron- 1 mg Cap docusate 2020-0 Yes [id number] 240mg Take 1 Un yanira calcium 240 2-07 capsule by it y of mg capsule 00:00: mouth once [place] 00 daily as Medical needed for Branch Constipati on. ibuprofen 2020-0 Yes [id number] 600mg Take 1 U nivers 600 mg 2-07 tablet by ity of tablet 00:00: mouth [place] 00 every 6 Medical (six) Branch hours as needed (Pain). Take with food or milk. Iron Fum & 2020-0 Yes [id number] 1{capsu Take 1 Univers P-FA-Vit B 2-07 le} capsule by ity of & C No.9 00:00: mouth [place] (INTEGRA 00 daily. Medical PLUS) 125 Branch mg iron- 1 mg Cap docusate 2020-0 Yes [id number] 240mg Take 1 Un yanira calcium 240 2-07 capsule by it y of mg capsule 00:00: mouth once [place] 00 daily as Medical needed for Branch Constipati on. ibuprofen 2020-0 Yes [id number] 600mg Take 1 U nivers 600 mg 2-07 tablet by ity of tablet 00:00: mouth [place] 00 every 6 Medical (six) Branch hours as needed (Pain). Take with food or milk. Iron Fum & 2020-0 Yes [id number] 1{capsu Take 1 Univers P-FA-Vit B 2-07 le} capsule by ity of & C No.9 00:00: mouth [place] (INTEGRA 00 daily. Medical PLUS) 125 Branch mg iron- 1 mg Cap docusate 2020-0 Yes [id number] 240mg Take 1 Un yanira calcium 240 2-07 capsule by it y of mg capsule 00:00: mouth once [place] 00 daily as Medical needed for Branch Constipati on. ibuprofen 2020-0 Yes [id number] 600mg Take 1 U nivers 600 mg 2-07 tablet by ity of tablet 00:00: mouth [place] 00 every 6 Medical (six) Branch hours as needed (Pain). Take with food or milk. Iron Fum & 2020-0 Yes [id number] 1{capsu Take 1 Univers P-FA-Vit B 2-07 le} capsule by ity of & C No.9 00:00: mouth [place] (INTEGRA 00 daily. Medical PLUS) 125 Branch mg iron- 1 mg Cap docusate 2020-0 Yes [id number] 240mg Take 1 Un yanira calcium 240 2-07 capsule by it y of mg capsule 00:00: mouth once [place] 00 daily as Medical needed for Branch Constipati on. ibuprofen 2020-0 Yes [id number] 600mg Take 1 U nivers 600 mg 2-07 tablet by ity of tablet 00:00: mouth [place] 00 every 6 Medical (six) Branch hours as needed (Pain). Take with food or milk. Iron Fum & 2020-0 Yes [id number] 1{capsu Take 1 Univers P-FA-Vit B 2- le} capsule by ity of & C No.9 00:00: mouth [place] (INTEGRA 00 daily. Medical PLUS) 125 Branch mg iron- 1 mg Cap docusate 2022- No [id number] 240mg Take 1 U nivers calcium 240 209-25 capsule by i ty of mg capsule 00:00: 00:00 mouth once [place] 00 :00 daily as Medical needed for Branch Constipati on. ibuprofen 2022- No [id number] 600mg Take 1 Univers 600 mg 2-01 05- tablet by ity of tablet 00:00: 00:00 mouth [place] 00 :00 every 6 Medical (six) Branch hours as needed (Pain). Take with food or milk. Iron Fum & 2022- No [id number] 1{capsu Take 1 Univers P-FA-Vit B 209-25 le} capsule by it y of & C No.9 00:00: 00:00 mouth [place] (INTEGRA 00 :00 daily. Medical PLUS) 125 Branch mg iron- 1 mg Cap docusate 2022- No [id number] 240mg Take 1 U nivers calcium 240 08-12 capsule by i ty of mg capsule 00:00: 00:00 mouth once [place] 00 :00 daily as Medical needed for Branch Constipati on. ibuprofen 2022- No [id number] 600mg Take 1 Univers 600 mg 2-09-25 tablet by ity of tablet 00:00: 00:00 mouth [place] 00 :00 every 6 Medical (six) Branch hours as needed (Pain). Take with food or milk. Iron Fum & 2022- No [id number] 1{capsu Take 1 Univers P-FA-Vit B 209-25 le} capsule by it y of & C No.9 00:00: 00:00 mouth [place] (INTEGRA 00 :00 daily. Medical PLUS) 125 Branch mg iron- 1 mg Cap amnioinfusi 2019- No 1000mL at 750 U nivers on IV 2-06 02-06 mL/hr, ity of infusion 20:00: 20:06 [...] until the liter is complete.& nbsp;&nbsp ;Notify Consulting Manager if uterine resting tone exceeds 25 mmHg at any time during the amnioinfus ion. Obst etrics (KARINA) Aminoinfus ion Orders
lactated 2020-0 2020- No 500mL at 999 Unive rs ringers IV 08-11-06 mL/hr, 500 it y of infusion 17:45: 16:45 mL, IV [place] 500 mL 00 :00 Infusion, Medical ONCE, 1 Branch dose, [place] 08/11/19 at 1145, Routine ondansetron 2019- 2020- No 4mg 4 mg, Slow Univers (ZOFRAN 08-11- IV Push, ity of (PF)) 08:15: 07:12 [...] dose, Branch mg/5 mL Starting solution 30 Thu5/20 mL at 2151, Until Discontinu ed, Routine, Surgery/Pr ocedure ferrous 2017-0 Yes [id number] 325mg Take 1 Un yanira sulfate 325 6-07 tablet by ity of mg (65 mg 00:00: mouth 2 [place] iron) 00 (two) Medical tablet times Branch daily. ascorbic 2017- Yes [id number] 500mg Take 1 U nivers acid, 6-07 tablet by ity of vitamin C, 00:00: mouth 3 [place] 500 mg 00 (three) Medical tablet times Branch daily. ferrous 2017- Yes [id number] 325mg Take 1 Un yanira sulfate 325 6-07 tablet by ity of mg (65 mg 00:00: mouth 2 [place] iron) 00 (two) Medical tablet times Branch daily. ascorbic 2017- Yes [id number] 500mg Take 1 U nivers acid, 6-07 tablet by ity of vitamin C, 00:00: mouth 3 [place] 500 mg 00 (three) Medical tablet times Branch daily. ferrous Yes [id number] 325mg Take 1 Un yanira sulfate 325 6-07 tablet by ity of mg (65 mg 00:00: mouth 2 [place] iron) 00 (two) Medical tablet times Branch daily. ascorbic 2017- Yes [id number] 500mg Take 1 U nivers acid, 6-07 tablet by ity of vitamin C, 00:00: mouth 3 [place] 500 mg 00 (three) Medical tablet times Branch daily. ferrous 2017- Yes [id number] 325mg Take 1 Un yanira sulfate 325 6-07 tablet by ity of mg (65 mg 00:00: mouth 2 [place] iron) 00 (two) Medical tablet times Branch daily. ascorbic 2017- Yes [id number] 500mg Take 1 U nivers acid, 6-07 tablet by ity of vitamin C, 00:00: mouth 3 [place] 500 mg 00 (three) Medical tablet times Branch daily. ferrous 2017-0 Yes [id number] 325mg Take 1 Un yanira sulfate 325 6-07 tablet by ity of mg (65 mg 00:00: mouth 2 [place] iron) 00 (two) Medical tablet times Branch daily. ascorbic 2017- Yes [id number] 500mg Take 1 U nivers acid, 6-07 tablet by ity of vitamin C, 00:00: mouth 3 [place] 500 mg 00 (three) Medical tablet times Branch daily. ferrous 2018-0 Yes [id number] 325mg Take 1 Un yanira sulfate 325 6-07 tablet by ity of mg (65 mg 00:00: mouth 2 [place] iron) 00 (two) Medical tablet times Branch daily. ascorbic 2018-0 Yes [id number] 500mg Take 1 U nivers acid, 6-07 tablet by ity of vitamin C, 00:00: mouth 3 [place] 500 mg 00 (three) Medical tablet times Branch daily. ferrous 2018-0 Yes [id number] 325mg Take 1 Un yanira sulfate 325 6-07 tablet by ity of mg (65 mg 00:00: mouth 2 [place] iron) 00 (two) Medical tablet times Branch daily. ascorbic 2017-0 Yes [id number] 500mg Take 1 U nivers acid, 6-07 tablet by ity of vitamin C, 00:00: mouth 3 [place] 500 mg 00 (three) Medical tablet times Branch daily. ferrous 2017-0 Yes [id number] 325mg Take 1 Un yanira sulfate 325 6-07 tablet by ity of mg (65 mg 00:00: mouth 2 [place] iron) 00 (two) Medical tablet times Branch daily. ascorbic 2017-0 Yes [id number] 500mg Take 1 U nivers acid, 6-07 tablet by ity of vitamin C, 00:00: mouth 3 [place] 500 mg 00 (three) Medical tablet times Branch daily. ferrous 2017-0 Yes [id number] 325mg Take 1 Un yanira sulfate 325 6-07 tablet by ity of mg (65 mg 00:00: mouth 2 [place] iron) 00 (two) Medical tablet times Branch daily. ascorbic 2017-0 Yes [id number] 500mg Take 1 U nivers acid, 6-07 tablet by ity of vitamin C, 00:00: mouth 3 [place] 500 mg 00 (three) Medical tablet times Branch daily. ferrous 2018-0 Yes [id number] 325mg Take 1 Un yanira sulfate 325 6-07 tablet by ity of mg (65 mg 00:00: mouth 2 [place] iron) 00 (two) Medical tablet times Branch daily. ascorbic 2017-0 Yes [id number] 500mg Take 1 U nivers acid, 6-07 tablet by ity of vitamin C, 00:00: mouth 3 [place] 500 mg 00 (three) Medical tablet times Branch daily. ferrous Yes [id number] 325mg Take 1 Un yanira sulfate 325 -07 tablet by ity of mg (65 mg 00:00: mouth 2 [place] iron) 00 (two) Medical tablet times Branch daily. ascorbic Yes [id number] 500mg Take 1 U nivers acid, 6- tablet by ity of vitamin C, 00:00: mouth 3 [place] 500 mg 00 (three) Medical tablet times Branch daily. ferrous 2020- No [id number] 325mg Take 1 U nivers sulfate 325 - 02- tablet by it y of mg (65 mg 00:00: 00:00 mouth [place] iron) 00 :00 (two) Medical tablet times Branch daily. ascorbic 2019- No [id number] 500mg Take 1 Univers acid, 12-10 02- tablet by ity of vitamin C, 00:00: 00:00 mouth 3 [place] 500 mg 00 :00 (three) Medical tablet times Branch daily. doxylamine- 2016-07 Yes [id number] 2{tbl} Take 2 Univers pyridoxine, 1-15 tablets by it y of vit B6, 00:00: mouth at [place] ([facility]) 00 bedtime. Medic al 10-10 mg Branch per tablet doxylamine- 2016-07 Yes [id number] 2{tbl} Take 2 Univers pyridoxine, 1-15 tablets by it y of vit B6, 00:00: mouth at [place] ([facility]) 00 bedtime. Medic al 10-10 mg Branch per tablet doxylamine- 2016-07 Yes [id number] 2{tbl} Take 2 Univers pyridoxine, 1-15 tablets by it y of vit B6, 00:00: mouth at [place] ([facility]) 00 bedtime. Medic al 10-10 mg Branch per tablet doxylamine- 2016-07 Yes [id number] 2{tbl} Take 2 Univers pyridoxine, 1-15 tablets by it y of vit B6, 00:00: mouth at [place] ([facility]) 00 bedtime. Medic al 10-10 mg Branch per tablet doxylamine- 2016-07 Yes [id number] 2{tbl} Take 2 Univers pyridoxine, 1-15 tablets by it y of vit B6, 00:00: mouth at [place] ([facility]) 00 bedtime. Medic al 10-10 mg Branch per tablet doxylamine- 2016-07 Yes [id number] 2{tbl} Take 2 Univers pyridoxine, 1-15 tablets by it y of vit B6, 00:00: mouth at [place] ([facility]) 00 bedtime. Medic al 10-10 mg Branch per tablet doxylamine- 2016-07 Yes [id number] 2{tbl} Take 2 Univers pyridoxine, 1-15 tablets by it y of vit B6, 00:00: mouth at [place] ([facility]) 00 bedtime. Medic al 10-10 mg Branch per tablet doxylamine- 2016-07 Yes [id number] 2{tbl} Take 2 Univers pyridoxine, 1-15 tablets by it y of vit B6, 00:00: mouth at [place] ([facility]) 00 bedtime. Medic al 10-10 mg Branch per tablet doxylamine- 2016-07 Yes [id number] 2{tbl} Take 2 Univers pyridoxine, 1-15 tablets by it y of vit B6, 00:00: mouth at [place] ([facility]) 00 bedtime. Medic al 10-10 mg Branch per tablet doxylamine- 2016-07 Yes [id number] 2{tbl} Take 2 Univers pyridoxine, 1-15 tablets by it y of vit B6, 00:00: mouth at [facility]) 00 bedtime. Medic al 10-10 mg Branch per tablet doxylamine2016-07 Yes [id number] 2{tbl} Take 2 Univers pyridoxine, 1-15 tablets by it y of vit B6, 00:00: mouth at [place] ([facility]) 00 bedtime. Medic al 10-10 mg Branch per tablet doxylamine- 2016-07 2020- No [id number] 2{tbl} Take 2 Univers pyridoxine, 1-15 02-07 tablets by i ty of vit B6, 00:00: 00:00 mouth at [place] ([facility]) 00 :00 bedtime. Medic al 10-10 mg Branch per tablet PNV 67-iron 2016-07 Yes [id number] 1{each} Take 1 Univers ps-folate 0-18 Each by ity of no.1-dha 00:00: mouth [place] (VITAFOL 00 daily. Medical ULTRA) 29 Branch mg iron- 1 mg-200 mg Cap PNV 67-iron 2016-07 Yes [id number] 1{each} Take 1 Univers ps-folate 0-18 Each by ity of no.1-dha 00:00: mouth [place] (VITAFOL 00 daily. Medical ULTRA) 29 Branch mg iron- 1 mg-200 mg Cap PNV 67-iron 2016-07 Yes [id number] 1{each} Take 1 Univers ps-folate 0-18 Each by ity of no.1-dha 00:00: mouth [place] (VITAFOL 00 daily. Medical ULTRA) 29 Branch mg iron- 1 mg-200 mg Cap PNV 67-iron 2016-07 Yes [id number] 1{each} Take 1 Univers ps-folate 0-18 Each by ity of no.1-dha 00:00: mouth [place] (VITAFOL 00 daily. Medical ULTRA) 29 Branch mg iron- 1 mg-200 mg Cap PNV 67-iron 2016-07 Yes [id number] 1{each} Take 1 Univers ps-folate 0-18 Each by ity of no.1-dha 00:00: mouth [place] (VITAFOL 00 daily. Medical ULTRA) 29 Branch mg iron- 1 mg-200 mg Cap PNV 67-iron 2016-07 Yes [id number] 1{each} Take 1 Univers ps-folate 0-18 Each by ity of no.1-dha 00:00: mouth [place] (VITAFOL 00 daily. Medical ULTRA) 29 Branch mg iron- 1 mg-200 mg Cap PNV 67-iron 2016-07 Yes [id number] 1{each} Take 1 Univers ps-folate 0-18 Each by ity of no.1-dha 00:00: mouth [place] (VITAFOL 00 daily. Medical ULTRA) 29 Branch mg iron- 1 mg-200 mg Cap PNV 67-iron 2016-07 Yes [id number] 1{each} Take 1 Univers ps-folate 0-18 Each by ity of no.1-dha 00:00: mouth [place] (VITAFOL 00 daily. Medical ULTRA) 29 Branch mg iron- 1 mg-200 mg Cap PNV 67-iron 2016-07 Yes [id number] 1{each} Take 1 Univers ps-folate 0-18 Each by ity of no.1-dha 00:00: mouth [place] (VITAFOL 00 daily. Medical ULTRA) 29 Branch mg iron- 1 mg-200 mg Cap PNV 67-iron 2016-07 Yes [id number] 1{each} Take 1 Univers ps-folate 0-18 Each by ity of no.1-dha 00:00: mouth [place] (VITAFOL 00 daily. Medical ULTRA) 29 Branch mg iron- 1 mg-200 mg Cap PNV 67-iron 2016-07 Yes [id number] 1{each} Take 1 Univers ps-folate 0-18 Each by ity of no.1-dha 00:00: mouth [place] (VITAFOL 00 daily. Medical ULTRA) 29 Branch mg iron- 1 mg-200 mg Cap PNV 67-iron 2016-07 2020- No [id number] 1{each} Take 1 Univers ps-folate 0-18 02-07 Each by ity of no.1-dha 00:00: 00:00 mouth [place] (VITAFOL 00 :00 daily. Medical ULTRA) 29 Branch mg iron- 1 mg-200 mg Cap Immunizations Ordered Immunization Filled Immunization Date Status Commen ts Source Name Name HPV9 2022-09-25 Completed University of 00:00:00 [facility] HPV9 2022-09-25 Completed University of 00:00:00 [facility] HPV9 2022-09-25 Completed University of 00:00:00 [facility] HPV9 2022-09-25 Completed University of 00:00:00 [facility] HPV9 2022-09-25 Completed University of 00:00:00 [facility] SARS-COV-2 COVID-19 2020-10-23 Completed Unive rsity of VACCINE - (MODERNA) 00:00:00 [facility] SARS-COV-2 COVID-19 2020-10-23 Completed Unive rsity of VACCINE - (MODERNA) 00:00:00 [facility] SARS-COV-2 COVID-19 2020-10-23 Completed Unive rsity of VACCINE - (MODERNA) 00:00:00 [facility] SARS-COV-2 COVID-19 2020-10-23 Completed [facility] of VACCINE - (MODERNA) 00:00:00 [facility] SARS-COV-2 COVID-19 2020-10-23 Completed [facility] of VACCINE - (MODERNA) 00:00:00 [facility] HPV9 2020-02-20 Completed University of 00:00:00 [facility] HPV9 2020-02-20 Completed University of 00:00:00 [facility] HPV9 2020-02-20 Completed University of 00:00:00 [facility] HPV9 2020-02-20 Completed University of 00:00:00 [facility] HPV9 2020-02-20 Completed University of 00:00:00 [facility] HPV9 2020-02-20 Completed University of 00:00:00 [facility] HPV9 2020-02-20 Completed University of 00:00:00 [facility] HPV9 2019-09-23 Completed University of 00:00:00 [facility] HPV9 2019-09-23 Completed University of 00:00:00 [facility] HPV9 2019-09-23 Completed University of 00:00:00 [facility] HPV9 2019-09-23 Completed University of 00:00:00 [facility] HPV9 2019-09-23 Completed University of 00:00:00 [facility] HPV9 2019-09-23 Completed University of 00:00:00 [facility] HPV9 2019-09-23 Completed University of 00:00:00 [facility] HPV9 2019-09-23 Completed University of 00:00:00 [facility] HPV9 2019-09-23 Completed University of 00:00:00 [facility] HPV9 2019-09-23 Completed University of 00:00:00 [facility] HPV9 2019-09-23 Completed University of 00:00:00 [facility] HPV9 2019-09-23 Completed University of 00:00:00 [facility] HPV9 2019-09-23 Completed University of 00:00:00 [facility] Tdap 2019-05-30 Completed University of 00:00:00 [facility] Tdap 2019-05-30 Completed University of 00:00:00 [facility] Tdap 2019-05-30 Completed University of 00:00:00 [facility] Tdap 2019-05-30 Completed University of 00:00:00 [facility] Tdap 2019-05-30 Completed University of 00:00:00 [facility] Tdap 2019-05-30 Completed University of 00:00:00 [facility] Tdap 2019-05-30 Completed [facility] 00:00:00 [facility] Tdap 2019-05-30 Completed University of 00:00:00 [facility] Tdap 2019-05-30 Completed University of 00:00:00 [facility] Tdap 2019-05-30 Completed University of 00:00:00 [facility] Tdap 2019-05-30 Completed University of 00:00:00 [facility] TDAP 2019-05-30 Completed University of 00:00:00 [facility] TDAP 2019-05-30 Completed University of 00:00:00 [facility] TDAP 2019-05-30 Completed University of 00:00:00 [facility] TDAP 2019-05-30 Completed University of 00:00:00 [facility] TDAP 2019-05-30 Completed University of 00:00:00 [facility] TDAP 2019-05-30 Completed University of 00:00:00 [facility] TDAP 2019-05-30 Completed University of 00:00:00 [facility] TDAP 2019-05-30 Completed University of 00:00:00 [facility] Tdap 2017-10-13 Completed University of 00:00:00 [facility] Tdap 2017-10-13 Completed University of 00:00:00 [facility] Tdap 2017-10-13 Completed University of 00:00:00 [facility] Tdap 2017-10-13 Completed University of 00:00:00 [facility] Tdap 2017-10-13 Completed University of 00:00:00 [facility] Tdap 2017-10-13 Completed University of 00:00:00 [facility] Tdap 2017-10-13 Completed University of 00:00:00 [facility] Tdap 2017-10-13 Completed University of 00:00:00 [facility] Tdap 2017-10-13 Completed University of 00:00:00 [facility] Tdap 2017-10-13 Completed University of 00:00:00 [facility] Tdap 2017-10-13 Completed University of 00:00:00 [facility] Tdap 2017-10-13 Completed University of 00:00:00 [facility] TDAP 2017-10-13 Completed University of 00:00:00 [facility] TDAP 2017-10-13 Completed University of 00:00:00 [facility] Tdap 2017-10-13 Completed University of 00:00:00 [facility] TDAP 2017-10-13 Completed University of 00:00:00 [facility] TDAP 2017-10-13 Completed University of 00:00:00 [facility] Tdap 2017-10-13 Completed University of 00:00:00 [facility] TDAP 2017-10-13 Completed University of 00:00:00 [facility] TDAP 2017-10-13 Completed University of 00:00:00 [facility] Tdap 2017-10-13 Completed University of 00:00:00 [facility] TDAP 2017-10-13 Completed University of 00:00:00 [facility] TDAP 2017-10-13 Completed University of 00:00:00 [facility] Tdap 2017-10-13 Completed University of 00:00:00 [facility] Tdap 2017-10-13 Completed University of 00:00:00 [facility] Tdap 2017-10-13 Completed University of 00:00:00 [facility] Tdap 2017-10-13 Completed University of 00:00:00 [facility] Meningococcal 2016-02-01 Completed [facility] Polysaccharide 00:00:00 [facility] (groups A, C, Y and Branc h W-135) conjugate vaccine (MCV4P) Meningococcal 2016-02-01 Completed [facility] Polysaccharide 00:00:00 [facility] (groups A, C, Y and Branc h W-135) conjugate vaccine (MCV4P) Meningococcal 2016-02-01 Completed [facility] Polysaccharide 00:00:00 [facility] (groups A, C, Y and Branc h W-135) conjugate vaccine (MCV4P) Meningococcal 2016-02-01 Completed [facility] Polysaccharide 00:00:00 [facility] (groups A, C, Y and Branc h W-135) conjugate vaccine (MCV4P) Meningococcal 2016-02-01 Completed [facility] Polysaccharide 00:00:00 [facility] (groups A, C, Y and Branc h W-135) conjugate vaccine (MCV4P) Meningococcal 2016-02-01 Completed [facility] Polysaccharide 00:00:00 [facility] (groups A, C, Y and Branc h W-135) conjugate vaccine (MCV4P) MMR 2002-01-26 Completed University of 00:00:00 [facility] MMR 2002-01-26 Completed University of 00:00:00 [facility] DTaP, Unspecified 2002-01-26 Completed Univers ity of Formulation 00:00:00 [facility] Hep B, Adol or Pedi 2002-01-26 Completed [facility]ive rsity of Dosage 00:00:00 [facility] IPV 2002-01-26 Completed University of 00:00:00 [facility] MMR 2002-01-26 Completed University of 00:00:00 [facility] DTaP, Unspecified 2002-01-26 Completed Univers ity of Formulation 00:00:00 [facility] Hep B, Adol or Pedi 2002-01-26 Completed [facility] rsity of Dosage 00:00:00 [facility] IPV 2002-01-26 Completed University of 00:00:00 [facility] MMR 2002-01-26 Completed University of 00:00:00 [facility] DTaP, Unspecified 2002-01-26 Completed Univers ity of Formulation 00:00:00 [facility] Hep B, Adol or Pedi 2002-01-26 Completed [facility] rsity of Dosage 00:00:00 [facility] IPV 2002-01-26 Completed University of 00:00:00 [facility] MMR 2002-01-26 Completed University of 00:00:00 [facility] DTaP, Unspecified 2002-01-26 Completed Univers ity of Formulation 00:00:00 [facility] Hep B, Adol or Pedi 2002-01-26 Completed [facility]ive rsity of Dosage 00:00:00 [facility] IPV 2002-01-26 Completed University of 00:00:00 [facility] MMR 2002-01-26 Completed University of 00:00:00 [facility] DTaP, Unspecified 2002-01-26 Completed Univers ity of Formulation 00:00:00 [facility] Hep B, Adol or Pedi 2002-01-26 Completed [facility]ive rsity of Dosage 00:00:00 [facility] IPV 2002-01-26 Completed University of 00:00:00 [facility] MMR 1999-05-01 Completed [facility] of 00:00:00 [facility] Varicella 1999-05-01 Completed University of (varivax)(chicken 00:00:00 [facility]ox[facility] MMR 1999-05-01 Completed [facility] of 00:00:00 [facility] Varicella 1999-05-01 Completed University of (varivax)(chicken 00:00:00 [facility] pox[facility] HIB PRP-D,booster 1999-05-01 Completed Univers ity of 00:00:00 [facility] MMR 1999-05-01 Completed University of 00:00:00 [facility] Varicella 1999-05-01 Completed University of (varivax)(chicken 00:00:00 [facility] pox) [facility] HIB PRP-D,booster 1999-05-01 Completed Univers ity of 00:00:00 [facility] MMR 1999-05-01 Completed University of 00:00:00 [facility] Varicella 1999-05-01 Completed University of (varivax)(chicken 00:00:00 [facility] pox) [facility] HIB PRP-D,booster 1999-05-01 Completed Univers ity of 00:00:00 [facility] MMR 1999-05-01 Completed University of 00:00:00 [facility] Varicella 1999-05-01 Completed University of (varivax)(chicken 00:00:00 [facility] pox) [facility] HIB PRP-D,booster 1999-05-01 Completed Univers ity of 00:00:00 [facility] MMR 1999-05-01 Completed University of 00:00:00 [facility] Varicella 1999-05-01 Completed University of (varivax)(chicken 00:00:00 [place] [facility] pox[facility] HIB PRP-D,booster 1999-05-01 Completed Univers ity of 00:00:00 [facility] DTP 1998 Completed University of 00:00:00 [facility] Hib-HbOC 1998 Completed University of 00:00:00 [facility] Poliovirus, Live, 1998 Completed Univers ity of Oral, Trivalent 00:00:00 [facility] DTP 1998 Completed University of 00:00:00 [facility] Hib-HbOC 1998 Completed University of 00:00:00 [facility] Poliovirus, Live, 1998 Completed Univers ity of Oral, Trivalent 00:00:00 [facility] DTP 1998 Completed University of 00:00:00 [facility] Hib-HbOC 1998 Completed University of 00:00:00 [facility] Poliovirus, Live, 1998 Completed Univers ity of Oral, Trivalent 00:00:00 [facility] DTP 1998 Completed University of 00:00:00 [facility] Hib-HbOC 1998 Completed University of 00:00:00 [facility] Poliovirus, Live, 1998 Completed Univers ity of Oral, Trivalent 00:00:00 [facility] DTP 1998 Completed University of 00:00:00 [facility] Hib-HbOC 1998 Completed University of 00:00:00 [facility] Poliovirus, Live, 1998 Completed Univers ity of Oral, Trivalent 00:00:00 [facility] DTaP, Unspecified 1998 Completed Univers ity of Formulation 00:00:00 [facility] Hep B, Adol or Pedi 1998 Completed Unive rsity of Dosage 00:00:00 [facility] HIB PRP-D,booster 1998 Completed Univers ity of 00:00:00 [facility] Poliovirus, Live, 1998 Completed Univers ity of Oral, Trivalent 00:00:00 [facility] DTaP, Unspecified 1998 Completed Univers ity of Formulation 00:00:00 [facility] Hep B, Adol or Pedi 1998 Completed Unive rsity of Dosage 00:00:00 [facility] HIB PRP-D,booster 1998 Completed Univers ity of 00:00:00 [facility] Poliovirus, Live, 1998 Completed Univers ity of Oral, Trivalent 00:00:00 [facility] DTaP, Unspecified 1998 Completed Univers ity of Formulation 00:00:00 [facility] Hep B, Adol or Pedi 1998 Completed Unive rsity of Dosage 00:00:00 [facility] HIB PRP-D,booster 1998 Completed Univers ity of 00:00:00 [facility] Poliovirus, Live, 1998 Completed Univers ity of Oral, Trivalent 00:00:00 [facility] DTaP, Unspecified 1998 Completed Univers ity of Formulation 00:00:00 [facility] Hep B, Adol or Pedi 1998 Completed Unive rsity of Dosage 00:00:00 [facility] HIB PRP-D,booster 1998 Completed Univers ity of 00:00:00 [facility] Poliovirus, Live, 1998 Completed Univers ity of Oral, Trivalent 00:00:00 [facility] DTaP, Unspecified 1998 Completed Univers ity of Formulation 00:00:00 [facility] Hep B, Adol or Pedi 1998 Completed Unive rsity of Dosage 00:00:00 [facility] HIB PRP-D,booster 1998 Completed Univers ity of 00:00:00 [facility] Poliovirus, Live, 1998 Completed Univers ity of Oral, Trivalent 00:00:00 [facility] DTaP, Unspecified 1998 Completed Univers ity of Formulation 00:00:00 [facility] Hep B, Adol or Pedi 1998 Completed Unive rsity of Dosage 00:00:00 [facility] Haemophilus 1998 Completed University of influenzae type b 00:00:00 [facility] edical vaccine, conjugate Branch unspecified formulation IPV 1998 Completed University of 00:00:00 [facility] DTaP, Unspecified 1998 Completed Univers ity of Formulation 00:00:00 [facility] Hep B, Adol or Pedi 1998 Completed Unive rsity of Dosage 00:00:00 [facility] Haemophilus 1998 Completed University of influenzae type b 00:00:00 [facility] edical vaccine, conjugate Branch unspecified formulation IPV 1998 Completed University of 00:00:00 [facility] DTaP, Unspecified 1998 Completed Univers ity of Formulation 00:00:00 [facility] Hep B, Adol or Pedi 1998 Completed Unive rsity of Dosage 00:00:00 [facility] Haemophilus 1998 Completed University of influenzae type b 00:00:00 [place] [facility] vaccine, conjugate [facility] unspecified formulation IPV 1998 Completed University of 00:00:00 [facility] DTaP, Unspecified 1998 Completed Univers ity of Formulation 00:00:00 [facility] Hep B, Adol or Pedi 1998 Completed Unive rsity of Dosage 00:00:00 [facility] Haemophilus 1998 Completed University of influenzae type b 00:00:00 [place] [facility] vaccine, conjugate Branch unspecified formulation IPV 1998 Completed University of 00:00:00 [facility] DTaP, Unspecified 1998 Completed Univers ity of Formulation 00:00:00 [facility] Hep B, Adol or Pedi 1998 Completed Unive rsity of Dosage 00:00:00 [facility] Haemophilus 1998 Completed [facility] influenzae type b 00:00:00 [facility] edical vaccine, conjugate Branch unspecified formulation IPV 1998 Completed University of 00:00:00 [facility] Hep B, Adol or Pedi 1998 Completed Unive rsity of Dosage 00:00:00 [facility] Hep B, Adol or Pedi 1998 Completed Unive rsity of Dosage 00:00:00 [facility] Hep B, Adol or Pedi 1998 Completed Unive rsity of Dosage 00:00:00 [facility] Hep B, Adol or Pedi 1998 Completed Unive rsity of Dosage 00:00:00 [facility] Hep B, Adol or Pedi 1998 Completed Unive rs[facility] of Dosage 00:00:00 [facility] Vital Signs Vital Name Observation Time Observation Value Comments Source Systolic blood 2022-10-06 13:30:00 113 mm[Hg] Univer sity of pressure [facility] Diastolic blood 2022-10-06 13:30:00 73 mm[Hg] Unive rsity of pressure [facility] Heart rate 2022-10-06 13:30:00 77 /min [facility] Body temperature 2022-10-06 13:30:00 36.17 Isa [facility] 2022-10-06 13:30:00 18 /min [facility] height 2022-10-06 13:30:00 162.6 cm [facility] Body weight 2022-10-06 13:30:00 106.051 kg [facility] BMI 2022-10-06 13:30:00 40.13 kg/m2 [facility] Systolic blood 2022-09-25 18:35:00 125 mm[Hg] Univer [facility]ity of pressure [facility] Diastolic blood 2022-09-25 18:35:00 84 mm[Hg] Unive rsity of pressure [facility] Heart rate 2022-09-25 18:35:00 110 /min [facility] Body temperature 2022-09-25 18:35:00 36.78 Isa Univ ers[facility] of [facility] Respiratory rate 2022-09-25 18:35:00 20 /min Univ ers[facility] of [facility] Body height 2022-09-25 18:35:00 162.6 cm [facility] Body weight 2022-09-25 18:35:00 103.964 kg [facility] BMI 2022-09-25 18:35:00 39.34 kg/m2 [facility] Systolic blood 2020-02-20 18:45:00 109 mm[Hg] Univer [facility]ity of pressure [facility] Diastolic blood 2020-02-20 18:45:00 73 mm[Hg] Unive rsity of pressure [facility] Heart rate 2020-02-20 18:45:00 77 /min [facility] Body temperature 2020-02-20 18:45:00 36.89 Isa [facility] ers[facility] of [facility] Respiratory rate 2020-02-20 18:45:00 16 /min Univ ers[facility] of [facility] Body height 2020-02-20 18:45:00 162.6 cm [facility] Body weight 2020-02-20 18:45:00 91.768 kg [facility] BMI 2020-02-20 18:45:00 34.73 kg/m2 [facility] Systolic blood 2019-09-23 20:15:00 125 mm[Hg] Univer sity of pressure [facility] Diastolic blood 2019-09-23 20:15:00 77 mm[Hg] Unive rsity of pressure [facility] Heart rate 2019-09-23 20:15:00 78 /min [facility] Body temperature 2019-09-23 20:15:00 37.11 Isa Univ [facility] of [facility] Respiratory rate 2019-09-23 20:15:00 16 /min Univ ers[facility] of [facility] Body height 2019-09-23 20:15:00 162.6 cm [facility] Body weight 2019-09-23 20:15:00 85.475 kg [facility] BMI 2019-09-23 20:15:00 32.35 kg/m2 [facility] Systolic blood 2019-09-01 16:15:00 114 mm[Hg] Univer [facility]ity of pressure [facility] Diastolic blood 2019-09-01 16:15:00 68 mm[Hg] Unive rsity of pressure [facility] Heart rate 2019-09-01 16:15:00 74 /min [facility] Body temperature 2019-09-01 16:15:00 36.72 Isa Univ ers[facility] of [facility] Respiratory rate 2019-09-01 16:15:00 16 /min Univ ers[facility] of [facility] Body height 2019-09-01 16:15:00 162.6 cm [facility] Body weight 2019-09-01 16:15:00 85.333 kg [facility] BMI 2019-09-01 16:15:00 32.29 kg/m2 [facility] Systolic blood 2019-08-18 21:56:00 124 mm[Hg] Univer [facility]ity of pressure [facility] Diastolic blood 2019-08-18 21:56:00 80 mm[Hg] Unive rsity of pressure [facility] Heart rate 2019-08-18 21:56:00 92 /min [facility] Body temperature 2019-08-18 21:56:00 37.22 Isa Univ ers[facility] Respiratory rate 2019-08-18 21:56:00 16 /min Univ ers[facility] of [facility] Body height 2019-08-18 21:56:00 160 cm [facility] Body weight 2019-08-18 21:56:00 86.592 kg [facility] BMI 2019-08-18 21:56:00 33.82 kg/m2 [facility] Systolic blood 2019-08-13 14:00:00 119 mm[Hg] Univer [facility]ity of pressure [facility] Diastolic blood 2019-08-13 14:00:00 76 mm[Hg] Unive rsity of pressure [facility] Heart rate 2019-08-13 14:00:00 74 /min [facility] Body temperature 2019-08-13 14:00:00 37 Isa Univ ersity of [facility] Respiratory rate 2019-08-13 14:00:00 18 /min Univ ersity of [facility] Oxygen saturation in 2019-08-13 14:00:00 99 /min University of Arterial blood by [facility] Pulse oximetry [place] Body height 2019-08-11 02:00:00 162 cm Universi ty of [facility] Body weight 2019-08-11 02:00:00 94.348 kg Universi ty of [facility] BMI 2019-08-11 02:00:00 35.95 kg/m2 Universi ty of [facility] Systolic blood 2019-08-03 19:39:00 116 mm[Hg] Univer sity of pressure [facility] Diastolic blood 2019-08-03 19:39:00 75 mm[Hg] Unive rsity of pressure [facility] Heart rate 2019-08-03 19:39:00 116 /min Universi ty of [facility] Body temperature 2019-08-03 19:39:00 37 Isa Univ ersity of [facility] Respiratory rate 2019-08-03 19:39:00 16 /min Univ ersity of [facility] Body height 2019-08-03 19:39:00 165.1 cm [facility] of [facility] Body weight 2019-08-03 19:39:00 95.369 kg [facility]i [facility] of [facility] BMI 2019-08-03 19:39:00 34.99 kg/m2 [facility] Systolic blood 2019-07-26 21:14:00 134 mm[Hg] Univer sity of pressure [facility] Diastolic blood 2019-07-26 21:14:00 87 mm[Hg] Unive rsity of pressure [facility] Heart rate 2019-07-26 21:14:00 92 /min Universi ty of [facility] Body temperature 2019-07-26 21:14:00 37.72 Isa Univ ersity of [facility] Respiratory rate 2019-07-26 21:14:00 16 /min Univ ersity of [facility] Body height 2019-07-26 21:14:00 165.1 cm [facility]i [facility] of [facility] Body weight 2019-07-26 21:14:00 96.389 kg Universi ty of [facility] BMI 2019-07-26 21:14:00 35.36 kg/m2 [facility] Systolic blood 2019-03-22 19:25:00 113 mm[Hg] Univer sity of pressure [facility] Diastolic blood 2019-03-22 19:25:00 72 mm[Hg] Unive rsity of pressure [facility] Heart rate 2019-03-22 19:25:00 93 /min [facility] [place] Body temperature 2019-03-22 19:25:00 36.94 Isa [facility] [place] Respiratory rate 2019-03-22 19:25:00 16 /min [facility] [place] Body height 2019-03-22 19:25:00 160 cm [facility] Body weight 2019-03-22 19:25:00 93.441 kg [facility] BMI 2019-03-22 19:25:00 36.49 kg/m2 [facility] [place] Systolic blood 2019-02-21 19:44:00 134 mm[Hg] Univer sity of pressure [facility] Diastolic blood 2019-02-21 19:44:00 77 mm[Hg] Unive rsity of pressure [facility] Heart rate 2019-02-21 19:44:00 101 /min [facility] [place] Body temperature 2019-02-21 19:44:00 37 Isa [facility] Respiratory rate 2019-02-21 19:44:00 16 /min [facility] [place] Body height 2019-02-21 19:44:00 160 cm [facility] Body weight 2019-02-21 19:44:00 94.121 kg [facility] BMI 2019-02-21 19:44:00 36.76 kg/m2 [facility] [place] Procedures Procedure Date / Time Performing Clinician Source Performed DISCLOSURE AND CONSENT, 2022-10-06 05:01:00 Doctor Unassigned, N o [facility] MEDICAL AND SURGICAL Name Medical [facility] PROCEDURES GARDASIL 9 (HPV 9V) 2022-09-25 18:54:20 Theresa Lord [facility] VACCINE [facility] ASSIGNMENT OF BENEFITS 2022-09-25 18:15:42 Doctor Unassigned, No [facility] Name Medical Branch GARDASIL 9 (HPV 9V) 2020-02-20 19:16:37 Theresa Lord [facility] VACCINE [facility] ASSIGNMENT OF BENEFITS 2020-02-20 18:38:40 Doctor Unassigned, No [facility] GARDASIL 9 (HPV 9V) 2019-09-23 21:08:55 Theresa Lord [facility] POCT TEST 2019-09-23 20:16:00 Theresa Lord [facility] CONSENT FOR 2019-09-23 05:01:00 Doctor Unassigned, No [facility] CBC WITH DIFFERENTIAL 2019-08-12 09:42:00 Tasha Alberto [facility] VENOUS CORD GAS 2019-08-11 23:27:00 Pedro Carranza [facility] URINALYSIS 2019-08-11 12:19:00 Sergio [facility] PROTEIN CREAT RATIO 2019-08-11 12:19:00 Sergio [facility] URINE RANDOM [facility] LACTATE DEHYDROGENASE 2019-08-11 07:31:00 Sergio [facility] CBC WITH DIFFERENTIAL 2019-08-11 07:31:00 Sergio [facility] SGOT (ASPARTATE AMINO 2019-08-11 04:05:00 [facility] TRANSFER) Medical Branch CREATININE 2019-08-11 04:05:00 Sergio [facility] ALANINE AMINO 2019-08-11 04:05:00 Sergio [facility] TRANSFERASE(SGPT [facility] URIC ACID 2019-08-11 04:05:00 Sergio [facility] HEPATITIS B SURFACE 2019-08-11 04:05:00 Pedro Carranza [facility] ANTIGEN [facility] GALV ONLY - SYPHILIS 2019-08-11 04:05:00 Pedro Carranza [facility] IGG/IGM [facility] HB ABO GROUPING 2019-08-11 04:04:00 Pedro Carranza [facility] RHO (D) IMMUNE GLOBULIN 2019-08-11 04:04:00 Tasha Alberto [facility] POCT URINALYSIS 2019-08-03 19:42:00 Theresa Lord [facility] POCT URINALYSIS 2019-07-26 21:46:00 Theresa Lord [facility] POCT URINALYSIS 2019-03-22 19:31:00 Theresa Lord [facility] POCT URINALYSIS 2019-02-21 19:44:00 Theresa Lord [facility] Encounters Start End Encounter Admission Attending Care Care Encounter Source Date/Time Date/Time Type Type Clinicians Facility Department ID 2022-10-06 2022-10-06 Outpatient R CASTRO [facility] [id number] Univers 08:30:00 08:59:30 JOSIE itkatarina [facility] 2022-10-06 2022-10-[address] [facility] 1.2.840.114 [id number] Univers 08:30:00 08:59:30 Visit Josie Salazar ELECTORATE OFFICER 350.1.13.10 i [facility] 4.2.7.2.686 Darrin as MATERNAL [phone] Med ical & CHILD [address] [place] [address] 2022-10-06 2022-10-06 Orders Doctor ARELI 1.2.840.114 [id number] Univers 00:00:00 00:00:00 Only Unassigned, LINDA 350.1.13.10 ity of [place] [facility] 4.2.7.2.686 Darrin as [phone] [address] 2022-09-25 2022-09-25 Outpatient R RISA [facility] [id number] Univers 13:15:00 14:35:28 THERESA huang o f [facility] 2022-09-25 2022-09-[address] [facility] [id number] Univers 13:15:00 14:35:28 Visit Theresa Farfan ELECTORATE OFFICER 350.1.13.10 ity [facility] 4.2.7.2.686 Darrin as MATERNAL [id number] [facility] CH[facility] [address] [place] [address] 2022-09-25 2022-09-25 Orders Doctor ARELI 1.2.840.114 [id number] Univers 00:00:00 00:00:00 Only Unassigned, LINDA 350.1.13.10 ity of [place] [facility] 4.2.7.2.686 Darrin as [phone] [address] 2020-05-23 2020-05-23 Outpatient R [facility] [id number] Univers 14:00:00 14:00:00 ity of [facility] 2020-02-20 2020-02-20 [facility] 1.2 .840.114 [id number] Univers 13:40:12 14:05:43 Visit Theresa Lord ELECTORATE OFFICER 350.1.13. 10 ity of [facility] 4.2.7.2.686 Darrin as MATERNAL [id number] [facility] & [address] 2020-02-20 2020-02-20 Outpatient R RISA, [facility] [id number] Univers 13:30:00 13:30:00 THERESA henson [facility] 2020-02-20 2020-02-20 Orders Doctor ARELI 1.2.840.114 [id number] Univers 00:00:00 00:00:00 Only Unassigned, LINDA 350.1.13.10 ity of [place] [facility] 4.2.7.2.686 Darrin as [phone] [address] 2019-11-23 2019-11-23 Outpatient R [facility] [id number] Univers 13:00:00 13:00:00 ity of [facility] 2019-11-09 2019-11-09 Outpatient R RISA, [facility] [id number] Univers 14:15:00 14:15:00 THERESA henson [facility] 2019-11-09 2019-11-[address] [facility] 1.2.840.114 [id number] Univers 12:42:08 12:57:08 ne Visit Theresa C ELECTORATE OFFICER 350.1.13.10 ity of [facility] 4.2.7.2.686 Darrin as MATERNAL [phone] [facility] & [address] 2019-10-07 2019-10-07 Outpatient R RISA [facility] [id number] Univers 13:30:00 13:30:00 THERESA raiy o [facility] 2019-10-06 2019-10-06 [facility] [id number] Univers 08:45:00 08:45:00 THERESA ceceliay o f [facility] 2019-10-06 2019-10-06 Telephone [facility] 1.2.840.114 [id number] Univers 00:00:00 00:00:00 Theresa C ELECTORATE OFFICER 350.1.13.10 ity of [facility] 4.2.7.2.686 Darrin as MATERNAL [phone] [address] 2019-09-23 2019-09-23 Office [facility] [id number] [id number] Univers 15:04:55 16:09:38 Visit Theresa C ELECTORATE OFFICER 350.1.13.10 ity of [facility] 4.2.7.2.686 Darrin as MATERNAL [id number] [facility] & [address] 2019-09-23 2019-09-23 [facility] [id number] Univers 15:00:00 15:00:00 THERESA huang o [facility] 2019-09-23 2019-09-23 Orders Doctor ARELI 1.2.840.114 [id number] Univers 00:00:00 00:00:00 Only Unassigned, LINDA 350.1.13.10 ity of [place] [facility] 4.2.7.2.686 Darrin as [phone] [address] 2019-09-01 2019-09-01 Routine [facility] [id number] Univers 10:02:22 10:17:22 Theresa C ELECTORATE OFFICER 350.1.13.10 ity of Visit [facility] 4.2.7.2.686 Darrin as MATERNAL [id number] Med ical & CHILD [address] [facility] 2019-09-01 2019-09-01 Outpatient R RISA SDEDUARDA [facility] [id number] Univers 09:30:00 09:30:00 THERESA itkatarina o f [facility] 2019-08-18 2019-08-18 Nurse Visit, Ang-Rmchp Nurse [facility] 1.2 .840.114 [id number] Univers 09:28:08 09:52:41 Visit Theresa Lord ELECTORATE OFFICER 350.1.13. 10 ity of [facility] 4.2.7.2.686 Darrin as MATERNAL [id number] Med ical & CHILD [address] [place] [address] 2019-08-10 2019-08-13 [facility] ARELI Vickers [id number] Univers 18:34:00 14:36:00 Encounter Sabrina MCKEON 350.1.13.10 ity of [facility] 4.2.7.2.686 Darrin as [phone] [address] 2019-08-03 2019-08-03 Routine Risa, [facility] 1.2.250.381 [id number] Univers 13:13:09 13:53:30 Theresa C ELECTORATE OFFICER 350.1.13.10 ity of Visit [facility] 4.2.7.2.686 Adrrin as MATERNAL [phone] Med ical & CHILD [address] [place] [address] 2019-07-26 2019-07-[address] [facility] 1.2.442.115 [id number] Univers 14:51:29 15:37:05 Theresa C ELECTORATE OFFICER 350.1.13.10 ity of Visit [facility] 4.2.7.2.686 Darrin as MATERNAL [id number] Med ical & CHILD [address] [place] [address] 2019-03-22 2019-03-22 Routine Theresa Lord [facility] 1.2.8 40.114 [id number] Univers 14:01:38 14:51:32 Ami Carreno ELECTORATE OFFICER 350.1.13.10 ity of Visit [facility] 4.2.7.2.686 Darrin as MATERNAL [phone] Med ical & CHILD 107 [facility] 2019-03-22 2019-03-[address] [facility] 1.2.840.114 [id number] Univers 00:00:00 00:00:00 Theresa Farfan ELECTORATE OFFICER 350.1.13.10 ity of [facility] 4.2.7.2.686 Darrin as MATERNAL [id number] [facility] ical & CHILD 107 [facility] 2019-02-23 2019-02-23 C4 Planner Ultrasound, Crystal [facility] 1.2 .840.114 [id number] Univers 11:21:38 11:46:18 Visit Sabrina Vickers ELECTORATE OFFICER 350.1.13.10 ity of [facility] 4.2.7.2.686 Darrin as MATERNAL [phone] [facility] ical & CHILD [address] [facility] 2019-02-23 2019-02-23 Abstract Robles SDEDUARDA 1.2.840.114 [id number] Univers 00:00:00 00:00:00 Radha Moody ELECTORATE OFFICER 350.1.13.10 ity of [facility] 4.2.7.2.686 Darrin as MATERNAL [id number] [facility] ical & CHILD [address] [place] [address] 2019-02-21 2019-02-21 Routine Robles SDEDUARDA 1.2.840.114 [id number] Univers 14:37:15 15:06:20 Roslarrynda R ELECTORATE OFFICER 350.1.13.10 ity of Visit [facility] 4.2.7.2.686 Darrin as MATERNAL [phone] [facility] ical & CHILD [address] [place] [address] Results Test Description Test Time Test Comments Results Result Comments Source POCT TEST 2019-09-23 20:17:00 Test Item Value Reference Range Interpretation Comme nts POCT PREG (test code = 1605) Negative On board controls acceptable with C Line (test code = 3574) Yes POCT PREG LOT # (test code = 3575) POCT PREG TEST DATE (test code = 3576) [facility] [id number] 20:17:00 Test Item Value Reference Range Interpretation Comments POCT PREG (test code = 1605) Negative On board controls acceptable with C Yes Line (test code = 3574) POCT PREG LOT # (test code = 3575) POCT PREG TEST DATE (test code = 3576) [facility] - SYPHILIS [id number] 14:54:00 Test Item Value Reference Range Interpretation Comments Syphilis IgG/IgM (test Non-reactive Non-reactive code = 13639-0) FARHAD (test code = FARHAD) Non-reactive - No serologic evidence of T. pallidum infection. Cannot exclude incubating or early syphilis. Submit a second specimen in 2-4 weeks if syphilis is clinically suspected. Equivocal - Further testing to follow. Reactive - Further testing to follow. Lab Interpretation (test Normal code = 30770-3) [facility] WITH [id number] 10:19:00 Test Item Value Reference Range Interpretation Comments WBC (test code = See_Comment H [Automated 0050-2) message] The system which generated this result transmit darren reference range : 4.30 - 11.10 10*3/?L. The reference range was not used to interpret this result as normal/abnormal . RBC (test code = See_Comment [Automated 799-8) message] The system which generated this result [...] RDW-SD (test code = 44.3 fL 39-49.9 65563-1) RDW-CV (test code = 16.9 % 12-15.5 H 788-0) PLT (test code = See_Comment [Automated 777-3) message] The system which generated this result transmit darren reference range : 166 - 358 10*3/ ?L. The reference range was not u sed to interpret th is result as normal/abnormal . MPV (test code = 12.1 fL 9.5-12.9 16459-2) NRBC/100 WBC (test See_Comment [Automat ed code = 1170726177) message] The system which generated this result transmit darren reference range : 0.0 - 10.0 /100 WBCs. The reference range was not used to interpret this result as normal/abnormal . NRBC x10^3 (test code <0.01 See_Comment [Auto mated = 8013465425) message] The system which generated this result transmit darren reference range : 10*3/?L. The reference range was not used to interpret this result as normal/abnormal . GRAN MAT (NEUT) % 70.9 % (test code = 770-8) IMM GRAN % (test code 0.50 % = 2529968053) LYMPH % (test code = 21.0 % 736-9) MONO % (test code = 7.2 % 5905-5) EOS % (test code = 0.2 % 713-8) BASO % (test code = 0.2 % 706-2) GRAN MAT x10^3(ANC) 10.09 10*3/uL 1.88-7.09 H (test code = 4828712180) IMM GRAN x10^3 (test 0.07 10*3/uL 0-0.06 H code = 3564470021) LYMPH x10^3 (test code 2.98 10*3/uL 1.32-3.29 = 731-0) MONO x10^3 (test code 1.02 10*3/uL 0.33-0.92 H = 742-7) EOS x10^3 (test code = 0.03 10*3/uL 0.03-0.39 711-2) BASO x10^3 (test code 0.03 10*3/uL 0.01-0.07 = 704-7) Lab Interpretation Abnormal (test code = 23696-0) [facility] IMMUNE [id number] 02:49:21 Test Item Value Reference Range Interpretation Comments RHIG CANDIDATE? No- see comment Patient i s not a (test code = candidate for R [facility]- 5055) Patient is Rh Positive.Perfor med at [facility] Laboratory Services - [facility] Blood [id number] [place] [id number] Free: [phone] A No. [id number] [facility] AliceVENOUS CORD [id number] 23:39:00 Test Item Value Reference Range Interpretation Comments VENOUS BASE EXCESS, mEq/L CORD (test code = 9409688163) VENOUS PH, CORD (test 7.25-7.45 code = 2899518887) VENOUS PC02, CORD See_Comment [Automate d message] The (test code = system which ge nerated 6344160863) this result tra nsmitted reference range : 27 - 49 mmHg. The refer ence range was not used to interpret this result as normal/abnormal . VENOUS PO2, CORD (test See_Comment [Aut omated message] The code = 7182454895) system [facility] generated this result tra nsmitted reference range : 17 - 41 mmHg. The refer ence range was not used to interpret this result as normal/abnormal . VENOUS BICARBONATE, See_Comment [Automa darren message] The CORD (test code = system [facility] generated 2663632896) this result tra nsmitted reference range : 12 - 29 mEq/L. The refe rence range was not used to interpret this result as normal/abnormal . [facility] [id number] 23:39:00 Test Item Value Reference Range Interpretation Comments BASE EXCESS, CORD mEq/L (test code = 4039734647) AC PH, CORD (BEAKER) 7.18-7.38 (test code = 1748257485) PC02, CORD (test code See_Comment [Auto mated message] The = 3871601448) system which g enerated this result transmit darren reference range : 32 - 66 mmHg. The refer ence range was not used to interpret this result as normal/abnormal . PO2, CORD (test code See_Comment [Autom ated message] The = 6604420576) system which g enerated this result transmit darren reference range : 10 - 30 mmHg. The refer ence range was not used to interpret this result as normal/abnormal . BICARBONATE, CORD See_Comment [Automate d message] The (test code = system which ge nerated this 7834374013) result transmit darren reference range : 17 - 27 mEq/L. The refe rence range was not used to interpret this result as normal/abnormal . [facility] Alice[facility] CREAT Ratio Urine [id number] 13:03:00 Test Item Value Reference Range Interpretation Comments T. PROT U (test code = 2888-6) 12 mg/dL CREAT U (test code = 2784400963) 215.7 mg/dL Protein/Creatinine Ratio Urine 0.0-2.0 (test code = 1411432112) [facility] AliceUrinalysis2020-02-06 12:45:00 Test Item Value Reference Range Interpretation Comments APPEARANCE (test code = Hazy Clear A 3844012748) COLOR (test code = Yellow Yellow 8448534981) PH (test code = 4.8-8.0 1512920720) SP GRAVITY (test code = 1.003-1.030 5454444220) GLU U QUAL (test code = Normal Normal 1743388884) BLOOD (test code = Negative Negative INTERFERE NCE FROM 9253679245) ASCORBIC ACID M AY CAUSE FALSE NEG ATIVE RESULT KETONES (test code = 5 mg/dL Negative A 9011144980) PROTEIN (test code = 30 mg/dL Negative A 2887-8) UROBILIN (test code = 4.0 mg/dL Normal A 1480511448) BILIRUBIN (test code = Negative Negative 8333095816) NITRITE (test code = Negative Negative 5351983711) LEUK REFUGIO (test code = 25/uL Negative A 9044740554) RBC/HPF (test code = See_Comment [Autom ated message] 9858026885) The system mon.ki generated this result transmitted ref erence range: 0 - 3 HP F. The reference range was not used to int erpret this result as normal/abnormal . WBC/HPF (test code = See_Comment H [Autom ated message] 5044476160) The system mon.ki generated this result transmitted ref erence range: 0 - 5 HP F. The reference range was not used to int erpret this result as normal/abnormal . BACTERIA (test code = Moderate Negative A 5703723610) MUCOUS (test code = Marked Negative LPF A 2972138074) SQ EPITH (test code = See_Comment H [Auto mated message] 3378610122) The system mon.ki generated this result transmitted ref erence range: <=2 HPF. The reference range was not used to int erpret this result as normal/abnormal . Lab Interpretation Abnormal (test code = 94218-6) [facility] AliceHepatitis B Surface [id number] 09:09:00 Test Item Value Reference Range Interpretation Comments HBsAg Semi-Quantitative (test code = Negative Negative 5195-3) [facility] AliceLactate [id number] 08:41:00 Test Item Value Reference Range Interpretation Comments LDH (test code = 8283750289) 433 U/L 300-600 Lab Interpretation (test code = Normal 87410-2) [facility] AliceUric Acid [id number] 08:11:00 Test Item Value Reference Range Interpretation Comments URIC ACID (test code = 5951946909) 4.1 mg/dL 2.9-6 Lab Interpretation (test code = Normal 45075-7) [facility] [id number] 08:11:00 Test Item Value Reference Range Interpretation Comments CREATININE (test code 0.50 mg/dL 0.5-1.04 = 0821405552) eGFR Calculation mL/min/1.73m2 (Non-) (test code = 7864186432) eGFR Calculation mL/min/1.73m2 () (test code = 2792088361) FARHAD (test code = FARHAD) Association of [...] urine or abnormalities in imaging tests). [facility] Alice[facility]OT (Asparate Amino Transfer)2019-08-11 08:11:00 Test Item Value Reference Range Interpretation Comments AST(SGOT) (test code = 7028766546) 22 U/L 13-40 Lab Interpretation (test code = Normal 75476-7) [facility] AliceAlanine Amino Transferase (SGPT)2019-08-11 08:11:00 Test Item Value Reference Range Interpretation Comments ALTv (test code = 1742-6) 10 U/L 5-35 Lab Interpretation (test code = Normal 79683-5) [facility] WITH [id number] 07:44:00 Test Item Value Reference Range Interpretation Comments WBC (test code = See_Comment [Automated 1290-2) message] The sy stem which generated this result transmitted reference range : 4.30 - 11.10 10*3/?L. The reference range was not used to interpret this result as normal/abnormal . RBC (test code = See_Comment [Automated 729-8) message] The sy stem which generated this [...] RDW-SD (test code = 43.4 fL 39-49.9 75869-1) RDW-CV (test code = 17.0 % 12-15.5 H 788-0) PLT (test code = See_Comment [Automated 777-3) message] The sy stem which generated this result transmitted reference range : 166 - 358 10*3/ ?L. The reference r gladys was not used to interpret this result as normal/abnormal . MPV (test code = 11.5 fL 9.5-12.9 83923-8) NRBC/100 WBC (test See_Comment [Automat ed code = 6809770927) message] The system which generated this result transmitted reference range : 0.0 - 10.0 /100 WBCs. The refer ence range was not u sed to interpret th is result as normal/abnormal . NRBC x10^3 (test code <0.01 See_Comment [Auto mated = 5314227682) message] The s ystem which generated this result transmitted reference range : 10*3/?L. The reference range was not used to interpret this result as normal/abnormal . GRAN MAT (NEUT) % 50.4 % (test code = 770-8) IMM GRAN % (test code 0.30 % = 4679430409) LYMPH % (test code = 39.9 % 736-9) MONO % (test code = 8.3 % 5905-5) EOS % (test code = 0.8 % 713-8) BASO % (test code = 0.3 % 706-2) GRAN MAT x10^3(ANC) 3.84 10*3/uL 1.88-7.09 (test code = 4646120226) IMM GRAN x10^3 (test <0.03 0-0.06 code = 6510416792) LYMPH x10^3 (test code 3.04 10*3/uL 1.32-3.29 = 731-0) MONO x10^3 (test code 0.63 10*3/uL 0.33-0.92 = 742-7) EOS x10^3 (test code = 0.06 10*3/uL 0.03-0.39 711-2) BASO x10^3 (test code <0.03 0.01-0.07 = 704-7) Lab Interpretation Abnormal (test code = 40251-0) [facility] AliceType and Screen - ONCE [id number] 04:44:04 Test Item Value Reference Range Interpretation Comments ABO & RH (test code O POSITIVE Performe d at [facility] = 20) Laboratory Serv [facility]3 [address] [facility] s [address]Ocls Free: [phone] A No. [id number] IAT (test code = Negative Performed a t [facility] 1185) Laboratory Serv [facility] [address] [facility] s [address]Jqiy Free: [phone] A No. [id number] [facility] AlicePOP[facility] URINALYS[facility] W SPECIFIC [id number] 19:42:00 Test Item Value Reference Range Interpretation [...] U APPEAR (test code = 3267) [facility] AlicePOCT URINALYSIS W SPECIFIC [id number] 19:42:00 Test Item Value Reference Range Interpretation [...] POCT U APPEAR (test code = 3267) [facility] URINALYSIS W SPECIFIC [id number] 21:46:00 Test Item Value Reference Range Interpretation [...] POCT U APPEAR (test code = 3267) [facility] URINALYSIS W SPECIFIC [id number] 19:31:00 Test Item Value Reference Range Interpretation [...] U APPEAR (test code = 3267) [facility] W SPECIFIC [id number] 19:45:00 Test Item Value Reference Range Interpretation [...] 3267) Lab Interpretation (test code = Abnormal 45577-4) [facility] UR[facility] W SPECIFIC [id number] 19:45:00 Test Item Value Reference Range Interpretation [...] 3267) Lab Interpretation (test code = Abnormal 72548-3) [facility]"
--- NOTE | 2023-02-22 14:56 | RAD REPORT ---
EXAM DESCRIPTION: RAD - Facial Bones <3 Views - 02/22/2023 2:43 pm CLINICAL HISTORY: FACIAL PAIN COMPARISON: No comparisons FINDINGS/IMPRESSION: Grossly, no facial fracture identified. The orbital rim appears intact. CT is m ore sensitive. No air-fluid leveling at the sinuses. Curvilinear foreign body within the soft tissues at the right aspect of the nose. .
--- NOTE | 2023-02-22 15:24 | EDPHYS ---
Physician Documentation [facility] Name: Emily Rahman Age: 23 yrs Sex: Female : 2000 Arrival Date: 02/22/2023 Time: 13:12 Bed 10 Private MD: ED Physician Beronica David HPI: 02/22 14:13 This 23 yrs old Black Female presents to ER via Ambulatory with complaints of Eye snw Swelling - left. 14:13 The patient sustained contusion. Onset: The symptoms/episode began/occurred suddenly, 4 snw day(s) ago, and became persistent. Duration: the symptoms are continuous. Severity of symptoms: At their worst the symptoms were moderate. The patient has experienced a previous episode. It is unknown whether or not the patient has recently seen a physician. Historical: - Allergies: 13:34 No Known Allergies; nj1 - PMHx: 13:34 Asthma; nj1 - PSHx: 13:34 Tonsillectomy; nj1 - Immunization history:: Client reports receiving the 1st dose of the Covid vaccine. - Social history:: Smoking status: Reported history of juuling and/or vaping. ROS: 14:12 Constitutional: Negative for fever, chills, and weight loss, ENT: Negative for injury, snw pain, and discharge, Neck: Negative for injury, pain, and swelling, Cardiovascular: Negative for chest pain, palpitations, and edema, Respiratory: Negative for shortness of breath, cough, wheezing, and pleuritic chest pain, Abdomen/GI: Negative for abdominal pain, nausea, vomiting, diarrhea, and constipation, Back: Negative for injury and pain, : Negative for injury, bleeding, discharge, and swelling, MS/Extremity: Negative for injury and deformity, Skin: Negative for injury, rash, and discoloration, Neuro: Negative for headache, weakness, numbness, tingling, and seizure, Psych: Negative for depression, anxiety, suicide ideation, homicidal ideation, and hallucinations. 14:12 Eyes: Positive for pain, swelling, of the left upper eyelid and left lower eyelid. Exam: 14:11 Constitutional: This is a well developed, well nourished patient who is awake, alert, snw and in no acute distress. ENT: Nares patent. No nasal discharge, no septal abnormalities noted. Tympanic membranes are normal and external auditory canals are clear. Oropharynx with no redness, swelling, or masses, exudates, or evidence of obstruction, uvula midline. Mucous membranes moist. Neck: Trachea midline, no thyromegaly or masses palpated, and no cervical lymphadenopathy. Supple, full range of motion without nuchal rigidity, or vertebral point tenderness. No Meningismus. Chest/axilla: Normal chest wall appearance and motion. Nontender with no deformity. No lesions are appreciated. Cardiovascular: Regular rate and rhythm with a normal S1 and S2. No gallops, murmurs, or rubs. Normal PMI, no JVD. No pulse deficits. Respiratory: Lungs have equal breath sounds bilaterally, clear to auscultation and percussion. No rales, rhonchi or wheezes noted. No increased work of breathing, no retractions or nasal flaring. Abdomen/GI: Soft, non-tender, with normal bowel sounds. No distension or tympany. No guarding or rebound. No evidence of tenderness throughout. Back: No spinal tenderness. No costovertebral tenderness. Full range of motion. Skin: Warm, dry with normal turgor. Normal color with no rashes, no lesions, and no evidence of cellulitis. MS/ Extremity: Pulses equal, no cyanosis. Neurovascular intact. Full, normal range of motion. Neuro: Awake and alert, GCS 15, oriented to person, place, time, and situation. Cranial nerves II-XII grossly intact. Motor strength 5/5 in all extremities. Sensory grossly intact. Cerebellar exam normal. Normal gait. Psych: Awake, alert, with orientation to person, place and time. Behavior, mood, and affect are within normal limits. 14:11 Head/face: Noted is contusion, that is deep, of the left eye, Sinus tenderness, that is moderate, is located over the left maxillary sinus. 14:11 Eyes: Periorbital structures: swelling, ecchymosis, Pupils: no acute changes, Extraocular movements: no acute changes, Conjunctiva: subconjunctival hemorrhage(s), at 3 o'clock, Sclera: no acute changes, Lids and lashes: appear normal, bilaterally. Vital Signs: 13:32 Pulse 91; Resp 17; Temp 99.6; Pulse Ox 99% ; Weight 104.33 kg; Height 5 ft. 6 in. ; nj1 Pain 6/10; 13:32 Body Mass Index 37.12 (104.33 kg, 167.64 cm) nj1 13:32 Pain Scale: Adult nj1 Visual Acuity: 14:22 Left Eye Visual acuity 20/50, ; Right Eye Visual acuity 20/30, ; Both Eyes Visual hb acuity 20/30; With Lenses; MDM: 14:07 Patient medically screened. snw 14:54 Data reviewed: vital signs, nurses notes, radiologic studies, plain films. Counseling: snw I had a detailed discussion with the patient and/or guardian regarding the historical points, exam findings, and any diagnostic results supporting the discharge/admit diagnosis, the need for outpatient follow up, for definitive care. Special discussion: Based on the history and exam findings, there is no indication for further emergent testing or inpatient evaluation. I discussed with the patient/guardian the need to see the ENT specialist for further evaluation of the symptoms. I discussed with the patient/guardian the need to see the opthamologist for further evaluation of the symptoms, I discussed with the patient/guardian the need to see the primary care provider for further evaluation of the symptoms. 02/22 14:08 Order name: Facial Bones <3 Views XRAY: left maxilla; Complete Time: 15:09 snw 02/22 14:13 Order name: Visual Acuity; Complete Time: 14:21 snw Administered Medications: No medications were administered Disposition Summary: 02/22/23 15:24 Discharge Ordered Location: Home snw Condition: Stable snw Diagnosis - Facial contusion snw - Subconjunctival hemorrhage snw - maxillary sinus contusion snw Followup: snw - With: Emergency Department - When: As needed - Reason: Worsening of condition Followup: snw - With: Private Physician - When: 2 - 3 days - Reason: Recheck today's complaints, Continuance of care, Re-evaluation by your physician Discharge Instructions: - Discharge Summary Sheet snw - Eye Contusion snw - Facial or Scalp Contusion snw - Subconjunctival Hemorrhage snw Forms: - Medication Reconciliation Form snw - Thank You Letter snw - Antibiotic Education snw - Prescription Opioid Use snw - Patient Portal Instructions snw - Leadership Thank You Letter snw Prescriptions: - Amoxicillin 875 mg Oral Tablet - take 1 tablet by ORAL route every 12 hours for 10 days; 20 tablet; Refills: 0, snw Product Selection Permitted - Tramadol 50 mg Oral Tablet - take 1 tablet by ORAL route every 8 hours as needed; 12 tablet; Refills: 0, snw Product Selection Permitted Signatures: Dispatcher [employer] China Morgan, NATI-C HAND CARVER-[place] Anastasiia Claudio, RN RN nj1
--- NOTE | 2023-02-22 15:24 | ER ---
Nurse's Notes [facility] Name: Emily Rahman Age: 23 yrs Sex: Female : 2000 Arrival Date: 02/22/2023 Time: 13:12 Bed 10 Private MD: Diagnosis: Facial contusion;Subconjunctival hemorrhage;maxillary sinus contusion Presentation: 02/22 13:32 Chief complaint: Patient states: Left eye swelling and localized redness. Was hit on it nj1 2 days ago with a basketball, states bruising came after but swelling has worsen and the redness was first noticed today. Denies vision problems, no eyeball pain, pain on lower eyelid where she has bruising. Coronavirus screen: Vaccine status: Patient reports receiving the 1st dose of the Covid vaccine. Ebola Screen: Patient denies travel to an Ebola-affected area in the 21 days before illness onset. Initial Sepsis Screen: Does the patient meet any 2 criteria? HR > 90 bpm. No. Patient's initial sepsis screen is negative. Does the patient have a suspected source of infection? No. Patient's initial sepsis screen is negative. Risk Assessment: Do you want to hurt yourself or someone else? Patient reports no desire to harm self or others. Onset of symptoms was February 20, 2023. 13:32 Method Of Arrival: Ambulatory [facility] 13:32 Acuity: CUCA 4 nj1 Triage Assessment: 13:35 General: Appears in no apparent distress. comfortable, Behavior is calm, cooperative, nj1 appropriate for age. Pain: Complains of pain in left lower eyelid. Neuro: Level of Consciousness is awake, alert, obeys commands, Oriented to person, place, time, situation. 13:35 EENT: Sclera/Cornea Localized redness noted to outer aspect of sclera/cornea.. Denies nj1 Vision problems. Cardiovascular: Patient's skin is warm and dry. Respiratory: Airway is patent Respiratory effort is even, unlabored. Derm: Bruising that is dark purple, on left lower eyelid. Historical: - Allergies: 13:34 No Known Allergies; nj1 - PMHx: 13:34 Asthma; nj1 - PSHx: 13:34 Tonsillectomy; nj1 - Immunization history:: Client reports receiving the 1st dose of the Covid vaccine. - Social history:: Smoking status: Reported history of juuling and/or vaping. Screenin:52 [facility] ED Fall Risk Assessment (Adult) Score/Fall Risk Level 0 - 2 = Low Risk nj Oriented to surroundings, Maintained a safe environment, Hourly rounding (assess needs \T\ fall precautionary measures) done. Abuse screen: Denies threats or abuse. Denies injuries from another. Nutritional screening: No deficits noted. Tuberculosis screening: No symptoms or risk factors identified. Vital Signs: 13:32 Pulse 91; Resp 17; Temp 99.6; Pulse Ox 99% ; Weight 104.33 kg; Height 5 ft. 6 in. ; nj1 Pain 6/10; 13:32 Body Mass Index 37.12 (104.33 kg, 167.64 cm) nj1 13:32 Pain Scale: Adult nj Visual Acuity: 14:22 Left Eye Visual acuity 20/50, ; Right Eye Visual acuity 20/30, ; Both Eyes Visual hb acuity 20/30; With Lenses; ED Course: 13:16 Patient arrived in ED. im 13:33 China Yoon FNP-C is PHCP. snw 13:33 Beronica David MD is Attending Physician. snw 13:34 Triage completed. nj1 13:35 Arm band placed on right wrist. nj1 13:40 Patient has correct armband on for positive identification. Bed in low position. Call nj light in reach. Side rails up X 1. Provided Education on: fall precautions, call light. 14:45 Facial Bones <3 Views XRAY: left maxilla In Process Unspecified. EDMS Administered Medications: No medications were administered Outcome: 15:24 Discharge ordered by . snw 15:33 Patient left the ED. hb Signatures: Dispatcher [employer] EDMS China Yoon FNP-C FNP-Csnw Yara Dejesus RN SOHA Anastasiia Claudio RN RN nj1 Yuly Wick im
[2023-02-22 15:37] VITALS: TEMP 99.6; O2SAT 99
== END 2023-02-22 15:33 | disposition home or self-care (01) ==
LOC: ER 13:12
DX: H11.32 Conjunctival hemorrhage, left eye (principal); S00.83XA Contusion of other part of head, initial encounter
CPT/HCPCS: 70140; 99281

== ENCOUNTER 2023-06-05 12:30 | Emergency (ER) | payer SELFPAY ==
--- OUTSIDE RECORDS SUMMARY | 2023-06-05 12:34 | XMS REPORT | Continuity of Care Document ---
:2000 Author Organization [facility] [place] [facility] t Address [address] [place] [address] Care Team Providers Name Role Phone THERESA LORD Primary Care Physician Unavailable [email or web address] Attending Clinician Unavailable JOSIE ERAZO Attending Clinician Unavailable Josie Erazo CNM Attending Clinician Doctor Unassigned, [place] Attending Clinician Unavailable THERESA LORD Attending Clinician Unavailable Risa Theresa GRUBBS Attending Clinician [phone] Visit, Sarahstewart Nurse Attending Clinician Unavailable Sabrina Vickers MD Attending Clinician Ami Paige Attending Clinician Ultrasound, [place] Attending Clinician Unavailable Radha Barnett Attending Clinician [email or web address] Admitting Clinician Unavailable Sabrina Vickers MD Admitting Clinician Payers Payer Name Policy Type Policy Number Effective Date Expiration Date S ource [place] [id number] 2022 00:00:00 [place] [facility] [id number] 2019 HEALTH 00:00:00 Problems Condition Condition Condition Status Onset Resolution Last Treating Co mments Source Name Details Category Date Date Treatment Clinician Date Nexplanon Nexplanon Disease Active Uni vers in place in place 5-06 ity of 00:00: [facility] Branch Other Other Disease Active 2020-0 Univers general general 5-06 it[place] of counseling [place] and advice and advice 00 Me dical for for Branch contracept contracept margie margie management management Routine Routine Disease Active 2020-0 Univers 2-27 [place] [facility] Disease Active 2020-0 Univers (spontaneo (spontaneo 2-07 it y of [place] vaginal [place] vaginal [place] delivery[place] delivery[place] 00 [facility] Single Single Disease Active 2020-0 Univers live live 2-07 it y of 00:00: [facility] History of History of Disease Active 2020-0 U nivers asthma asthma 2-07 ity of 00:00: [facility] Gestationa Gestationa Disease Active 2020-0 U nivers l l 2-06 ity of hypertensi hypertensi 00:[place] [facility] Gestationa Gestationa Disease Active 2020-0 U nivers l l 2-06 ity of hypertensi hypertensi [place] [facility] Obesity Obesity Disease Active 2020-0 Univers (BMI (BMI 2-05 ity of 30-39.9) 30-39.9) 00:00: [place] [facility] 39 weeks 39 weeks Disease Active 2020-0 Unive rs gestation gestation 2-05 ity of of of 00:00: [place] 00 [facility] Susceptibl Susceptibl Disease Active 2019 Overview : Univers e to e to 6-17 Formattin ity of varicella varicella 00:00: g of this [place] (non-immun (non-immun 00 note Me dical e), e), might be Branch currently currently different from the original. Address pp Multiparit Multiparit Disease Active 2019- U nivers y y 6-14 ity of 00:00: [place] [facility] Obesity Obesity Disease Active 2016-07 Univers affecting affecting 0-18 [place] [facility] [place] Supervisio Supervisio Disease Active 2016-07 U nivers n of high n of high 0-18 ity of risk risk 00:00: [place] , , 00 Me dical antepartum antepartum Br anch Allergies, Adverse Reactions, Alerts Allergy Allergy Status Severity Reaction(s) Onset Inactive Treating Comm ents Source Name Type Date Date Clinician NO KNOWN Drug Active Univers ALLERGIE Class ity of S [facility] Social History Social Habit Start Date Stop Date Quantity Comments Source ASSERTION 2018-11-24 [facility] 00:00:00 [facility] Exposure to 2022-09-26 2022-10-06 Not sure [facility] SARS-CoV-2 00:00:00 08:16:00 [facility] (event) [place] Tobacco use and 2022-10-06 2022-10-06 Smokeless tobacco Un iversity of exposure 00:00:00 00:00:00 non-user [facility] Alcohol intake 2022-10-06 2022-10-06 Current University 00:00:00 00:00:00 non-drinker of [facility] alcohol (finding) [place] Alcohol Comment 2018-12-17 2018-12-17 last sexual Universi ty of 00:00:00 00:00:00 intercourse [facility] 12/09/2018 Branch Sex Assigned At [birth year] Universit y of 00:00:00 00:00:00 [facility] Smoking Status Start Date Stop Date Source Never smoked tobacco [facility] Medications Ordered Filled Start Stop Current Ordering Indication Dosage Frequency Signature Comments Components Source Medication Medication Date Date Medication? Clinician (SIG) Name Name etonogestre 2020- No [id number] 68mg Univers l 3-20 03-20 ity of (NEXPLANON) 21:45: 20:45 [place] implant 68 00 :00 Medical mg [place] etonogestre 2020- No [id number] 68mg 68 mg, Univers l 3-20 03-20 Subdermal, ity of (NEXPLANON) 21:45: 20:45 ONCE NOW, [place] implant 00 :00 1 dose, Medica l mg Fri [place] 09/23/19 at 1645, Routine
Use approved by: [employer]ALER etonogestre 2019- 2020- No [id number] 68mg Univers l 3-20 03-20 ity of (NEXPLANON) 21:45: 20:45 [place] implant 68 00 :00 Medical mg [place] etonogestre 2020-0 2020- No [id number] 68mg 68 mg, Univers l 09-22 Subdermal, ity of (NEXPLANON) 21:45: 20:45 ONCE NOW, [place] implant 68 00 :00 1 dose, Medica l mg Fri Branch 09/23/19 at 1645, Routine
Use approved by: [employer] varicella 2019-0 Yes .5mL 0.5 mL, Unive rs virus 208 Subcutaneo ity of vaccine 13:26: , [place] live 45 ONCE-PRIOR Medical (VARIVAX TO Branch (PF)) DISCHARGE, injection 1 dose, 0.5 mL Starting 08/13/19 at 0726, Until Discontinu ed, Routine, Give vaccine prior to discharge ferrous 2019-0 Yes 325mg 325 mg, Univer s sulfate 2- Oral, ity of tablet 325 15:00: DAILY, [place] mg 00 First dose Medical on Thu Branch 08/12/19 at 0900, Until Discontinu ed, Routine ibuprofen 2019-0 Yes 600mg 600 mg, Univ ers (IBU) 2-07 Oral, ity of tablet 600 02:45: [facility] Starting Medical [place] 08/11/19 Branch at 2044, Until Discontinu ed, Routine, Pain (scale 4-6) acetaminoph 2019-0 Yes 650mg 650 mg, Un yanira en 2-07 Oral, ity of (TYLENOL) 02:45: Q6HPRN, [place] tablet 650 55 Starting Medic al mg [place] 08/11/19 Branch at 2044, Until Discontinu ed, Routine, Pain (scale 1-3) diphenhydrA 2019-0 Yes 25mg 25 mg, Univ ers MINE 2-07 Oral, ity of (BENADRYL) 02:45: Q[facility]PRN, [facility] 55 Starting Medica l mg [place] 08/11/19 Branch at 2044, Until Discontinu ed, Routine, Sleep, Itching ondansetron 2019-0 Yes 4mg 4 mg, Slow Univers (ZOFRAN 2-07 IV Push, ity of (PF)) 02:45: Q8HPRN, [place] injection 4 55 Starting Medi surya mg [...] Until Discontinu ed, Routine, Constipati on benzocaine- 2019-0 Yes Topical, Un yanira menthol 2-07 PRN, ity of (DERMOPLAST 02:45: [place] ) 20-0.5 % 55 [place] 08/11/19 Med ical topical at 2044, Branch spray Until Discontinu ed, Routine, Perineum discomfort docusate 2020-0 Yes [id number] 240mg Take 1 Un yanira calcium 240 2-07 capsule by it y of mg capsule 00:00: mouth once [place] 00 daily as Medical needed for Branch Constipati on. ibuprofen 2020-0 Yes [id number] 600mg Take 1 U nivers 600 mg 2-07 tablet by ity of tablet 00:00: mouth [place] 00 every 6 Medical (six) Branch hours as needed (Pain). Take with food or milk. Iron Fum & 2020-0 Yes [id number] 1{capsu Take 1 Univers P-FA-Vit B 2-07 le} capsule by ity of & C No.9 00:00: mouth [place] (INTEGRA 00 daily. Medical PLUS) 125 Branch mg iron- 1 mg Cap docusate 2020-0 Yes [id number] 240mg Take 1 Un yanira calcium 240 2-07 capsule by it y of mg capsule 00:00: mouth once [place] 00 daily as Medical needed for Branch Constipati on. ibuprofen 2020-0 Yes [id number] 600mg Take 1 U nivers 600 mg 2-07 tablet by ity of tablet 00:00: mouth [place] 00 every 6 Medical (six) Branch hours as needed (Pain). Take with food or milk. Iron Fum & 2020-0 Yes [id number] 1{capsu Take 1 Univers P-FA-Vit B 2-07 le} capsule by ity of & C No.9 00:00: mouth [place] (INTEGRA 00 daily. Medical PLUS) 125 Branch mg iron- 1 mg Cap docusate 2020-0 Yes [id number] 240mg Take 1 Un yanira calcium 240 2-07 capsule by it y of mg capsule 00:00: mouth once [place] 00 daily as Medical needed for Branch Constipati on. ibuprofen 2020-0 Yes [id number] 600mg Take 1 U nivers 600 mg 2-07 tablet by ity of tablet 00:00: mouth [place] 00 every 6 Medical (six) Branch hours as needed (Pain). Take with food or milk. Iron Fum & 2020-0 Yes [id number] 1{capsu Take 1 Univers P-FA-Vit B 2-07 le} capsule by ity of & C No.9 00:00: mouth [place] (INTEGRA 00 daily. Medical PLUS) 125 Branch mg iron- 1 mg Cap docusate 2020-0 Yes [id number] 240mg Take 1 Un yanira calcium 240 2-07 capsule by it y of mg capsule 00:00: mouth once [place] 00 daily as Medical needed for Branch Constipati on. ibuprofen 2020-0 Yes [id number] 600mg Take 1 U nivers 600 mg 2-07 tablet by ity of tablet 00:00: mouth [place] 00 every 6 Medical (six) Branch hours as needed (Pain). Take with food or milk. Iron Fum & 2020-0 Yes [id number] 1{capsu Take 1 Univers P-FA-Vit B 2-07 le} capsule by ity of & C No.9 00:00: mouth [place] (INTEGRA 00 daily. Medical PLUS) 125 Branch mg iron- 1 mg Cap docusate 2020-0 Yes [id number] 240mg Take 1 Un yanira calcium 240 2-07 capsule by it y of mg capsule 00:00: mouth once [place] 00 daily as Medical needed for Branch Constipati on. ibuprofen 2020-0 Yes [id number] 600mg Take 1 U nivers 600 mg 2-07 tablet by ity of tablet 00:00: mouth [place] 00 every 6 Medical (six) Branch hours as needed (Pain). Take with food or milk. Iron Fum & 2020-0 Yes [id number] 1{capsu Take 1 Univers P-FA-Vit B 2-07 le} capsule by ity of & C No.9 00:00: mouth [place] (INTEGRA 00 daily. Medical PLUS) 125 Branch mg iron- 1 mg Cap docusate 2020-0 Yes [id number] 240mg Take 1 Un yanira calcium 240 2-07 capsule by it y of mg capsule 00:00: mouth once [place] 00 daily as Medical needed for Branch Constipati on. ibuprofen 2020-0 Yes [id number] 600mg Take 1 U nivers 600 mg 2-07 tablet by ity of tablet 00:00: mouth [place] 00 every 6 Medical (six) Branch hours as needed (Pain). Take with food or milk. Iron Fum & 2020-0 Yes [id number] 1{capsu Take 1 Univers P-FA-Vit B 2-07 le} capsule by ity of & C No.9 00:00: mouth [place] (INTEGRA 00 daily. Medical PLUS) 125 Branch mg iron- 1 mg Cap docusate 2020-0 Yes [id number] 240mg Take 1 Un yanira calcium 240 2-07 capsule by it y of mg capsule 00:00: mouth once [place] 00 daily as Medical needed for Branch Constipati on. ibuprofen 2020-0 Yes [id number] 600mg Take 1 U nivers 600 mg 2-07 tablet by ity of tablet 00:00: mouth [place] 00 every 6 Medical (six) Branch hours as needed (Pain). Take with food or milk. Iron Fum & 2020-0 Yes [id number] 1{capsu Take 1 Univers P-FA-Vit B 2-07 le} capsule by ity of & C No.9 00:00: mouth [place] (INTEGRA 00 daily. Medical PLUS) 125 Branch mg iron- 1 mg Cap docusate 2020-0 Yes [id number] 240mg Take 1 Un yanira calcium 240 2-07 capsule by it y of mg capsule 00:00: mouth once [place] 00 daily as Medical needed for Branch Constipati on. ibuprofen 2020-0 Yes [id number] 600mg Take 1 U nivers 600 mg 2-07 tablet by ity of tablet 00:00: mouth [place] 00 every 6 Medical (six) Branch hours as needed (Pain). Take with food or milk. Iron Fum & 2020-0 Yes [id number] 1{capsu Take 1 Univers P-FA-Vit B 2-07 le} capsule by ity of & C No.9 00:00: mouth [place] (INTEGRA 00 daily. Medical PLUS) 125 Branch mg iron- 1 mg Cap docusate 2020-0 Yes [id number] 240mg Take 1 Un yanira calcium 240 2-07 capsule by it y of mg capsule 00:00: mouth once [place] 00 daily as Medical needed for Branch Constipati on. ibuprofen 2020-0 Yes [id number] 600mg Take 1 U nivers 600 mg 2-07 tablet by ity of tablet 00:00: mouth [place] 00 every 6 Medical (six) Branch hours as needed (Pain). Take with food or milk. Iron Fum & 2020-0 Yes [id number] 1{capsu Take 1 Univers P-FA-Vit B 2-07 le} capsule by ity of & C No.9 00:00: mouth [place] (INTEGRA 00 daily. Medical PLUS) 125 Branch mg iron- 1 mg Cap docusate 2020-0 Yes [id number] 240mg Take 1 Un yanira calcium 240 2-07 capsule by it y of mg capsule 00:00: mouth once [place] 00 daily as Medical needed for Branch Constipati on. ibuprofen 2020-0 Yes [id number] 600mg Take 1 U nivers 600 mg 2-07 tablet by ity of tablet 00:00: mouth [place] 00 every 6 Medical (six) Branch hours as needed (Pain). Take with food or milk. Iron Fum & 2020-0 Yes [id number] 1{capsu Take 1 Univers P-FA-Vit B 2-07 le} capsule by ity of & C No.9 00:00: mouth [place] (INTEGRA 00 daily. Medical PLUS) 125 Branch mg iron- 1 mg Cap docusate 2020-0 Yes [id number] 240mg Take 1 Un yanira calcium 240 2-07 capsule by it y of mg capsule 00:00: mouth once [place] 00 daily as Medical needed for Branch Constipati on. ibuprofen 2020-0 Yes [id number] 600mg Take 1 U nivers 600 mg 2-07 tablet by ity of tablet 00:00: mouth [place] 00 every 6 Medical (six) Branch hours as needed (Pain). Take with food or milk. Iron Fum & 2019- Yes [id number] 1{capsu Take 1 Univers P-FA-Vit B 2- le} capsule by ity of & C No.9 00:00: mouth [place] (INTEGRA 00 daily. Medical PLUS) 125 Branch mg iron- 1 mg Cap docusate 2022- No [id number] 240mg Take 1 U nivers calcium 240 08-12 capsule by i ty of mg capsule 00:00: 00:00 mouth once [place] 00 :00 daily as Medical needed for Branch Constipati on. ibuprofen 2022- No [id number] 600mg Take 1 Univers 600 mg 2-01 05- tablet by ity of tablet 00:00: 00:00 mouth [place] 00 :00 every 6 Medical (six) Branch hours as needed (Pain). Take with food or milk. Iron Fum & 2022- No [id number] 1{capsu Take 1 Univers P-FA-Vit B 2-09-25 le} capsule by it y of & C No.9 00:00: 00:00 mouth [place] (INTEGRA 00 :00 daily. Medical PLUS) 125 Branch mg iron- 1 mg Cap docusate 2022- No [id number] 240mg Take 1 U nivers calcium 240 08-12 capsule by i ty of mg capsule 00:00: 00:00 mouth once [place] 00 :00 daily as Medical needed for Branch Constipati on. ibuprofen 2022- No [id number] 600mg Take 1 Univers 600 mg 209-25 tablet by ity of tablet 00:00: 00:00 mouth [place] 00 :00 every 6 Medical (six) Branch hours as needed (Pain). Take with food or milk. Iron Fum & 2022- No [id number] 1{capsu Take 1 Univers P-FA-Vit B 209-25 [...] until the liter is complete.& nbsp;&nbsp ;Notify Tribal Judge if uterine resting tone exceeds 25 mmHg at any time during the amnioinfus ion. Obst etrics (KARINA) Aminoinfus ion Orders
lactated 2019-0 2020- No 500mL at 999 Unive rs ringers IV 2 02-06 mL/hr, 500 it y of infusion 17:45: 16:45 mL, IV [place] 500 mL 00 :00 Infusion, Medical ONCE, 1 Branch dose, [place] 08/11/19 at 1145, Routine ondansetron 2020- No 4mg 4 mg, Slow Univers (ZOFRAN 08-11-06 IV Push, ity of (PF)) 08:15: 07:12 ONCE, 1 [place] injection 4 00 :00 dose, [place] Med ical mg 08/11/19 at Branch 0215, Routine D5W-LR IV 2019-0 2020- No 1000mL at 125 Uni vers infusion 08-11 02-07 mL/hr, IV ity o f 1,000 mL 04:00: 02:46 Infusion, [place] as 00 :09 CONTINUOUS Medical , Starting Branch 08/10/19 at 2200, Until [place] 08/11/19 at 2045, Routine LR 1000 mL 2020-0 2020- No 2mU/min 2 Uni vers + oxytocin 08-11 02-07 julio-unit it y of 20 units IV 03:55: 02:46 s/min (6 [place] Solution 08 :09 mL/hr), at Medic al 6 mL/hr, Branch IV Infusion, TITRATE, Starting 08/10/19 at 2155, Until [place] 08/11/19 at 2046, RADHA, Oxytocin Induction / Augmentati on of Labor. sodium 2020-0 2020- No 30mL 30 mL, Univers citrate-cit 2-06 02-06 Oral, ity of jaycee acid 03:51: 16:38 PRE-PROCED [place] (BICITRA) 29 :00 URE ONCE, Medic al 500-334 1 dose, Branch mg/5 mL Starting solution 30 2/5/20 mL at 2151, Until Discontinu ed, Routine, Surgery/Pr ocedure ferrous 2017- Yes [id number] 325mg Take 1 Un yanira sulfate 325 6-07 tablet by ity of mg (65 mg 00:00: mouth 2 [place] iron) 00 (two) Medical tablet times Branch daily. ascorbic Yes [id number] 500mg Take 1 U nivers acid, 6-07 tablet by ity of vitamin C, 00:00: mouth 3 [place] 500 mg 00 (three) Medical tablet times Branch daily. ferrous 2017- Yes [id number] 325mg Take 1 Un yanira sulfate 325 6-07 tablet by ity of mg (65 mg 00:00: mouth 2 [place] iron) 00 (two) Medical tablet times Branch daily. ascorbic Yes [id number] 500mg Take 1 U nivers acid, 6-07 tablet by ity of vitamin C, 00:00: mouth [place] 500 mg 00 (three) Medical tablet times Branch daily. ferrous Yes [id number] 325mg Take 1 Un yanira sulfate 325 6-07 tablet by ity of mg (65 mg 00:00: mouth 2 [place] iron) 00 (two) Medical tablet times Branch daily. ascorbic 2017- Yes [id number] 500mg Take 1 U nivers acid, 6-07 tablet by ity of vitamin C, 00:00: mouth 3 [place] 500 mg 00 (three) Medical tablet times Branch daily. ferrous Yes [id number] 325mg Take 1 Un yanira sulfate 325 6-07 tablet by ity of mg (65 mg 00:00: mouth 2 [place] iron) 00 (two) Medical tablet times Branch daily. ascorbic 2017- Yes [id number] 500mg Take 1 U nivers acid, 6-07 tablet by ity of vitamin C, 00:00: mouth 3 [place] 500 mg 00 (three) Medical tablet times Branch daily. ferrous Yes [id number] 325mg Take 1 Un yanira sulfate 325 6-07 tablet by ity of mg (65 mg 00:00: mouth 2 [place] iron) 00 (two) Medical tablet times Branch daily. ascorbic 2018-0 Yes [id number] 500mg Take 1 U nivers acid, 6-07 tablet by ity of vitamin C, 00:00: mouth 3 [place] 500 mg 00 (three) Medical tablet times Branch daily. ferrous 2018-0 Yes [id number] 325mg Take 1 Un yanira sulfate 325 6-07 tablet by ity of mg (65 mg 00:00: mouth 2 [place] iron) 00 (two) Medical tablet times Branch daily. ascorbic 2017-0 Yes [id number] 500mg Take 1 U nivers acid, 6-07 tablet by ity of vitamin C, 00:00: mouth 3 [place] 500 mg 00 (three) Medical tablet times Branch daily. ferrous 2017-0 Yes [id number] 325mg Take 1 Un yanira sulfate 325 6-07 tablet by ity of mg (65 mg 00:00: mouth 2 [place] iron) 00 (two) Medical tablet times Branch daily. ascorbic 2017-0 Yes [id number] 500mg Take 1 U nivers acid, 6-07 tablet by ity of vitamin C, 00:00: mouth 3 [place] 500 mg 00 (three) Medical tablet times Branch daily. ferrous 2017-0 Yes [id number] 325mg Take 1 Un yanira sulfate 325 6-07 tablet by ity of mg (65 mg 00:00: mouth 2 [place] iron) 00 (two) Medical tablet times Branch daily. ascorbic 2017-0 Yes [id number] 500mg Take 1 U nivers acid, 6-07 tablet by ity of vitamin C, 00:00: mouth 3 [place] 500 mg 00 (three) Medical tablet times Branch daily. ferrous 2017-0 Yes [id number] 325mg Take 1 Un yanira sulfate 325 6-07 tablet by ity of mg (65 mg 00:00: mouth 2 [place] iron) 00 (two) Medical tablet times Branch daily. ascorbic 2017-0 Yes [id number] 500mg Take 1 U nivers acid, 6-07 tablet by ity of vitamin C, 00:00: mouth 3 [place] 500 mg 00 (three) Medical tablet times Branch daily. ferrous 2017-0 Yes [id number] 325mg Take 1 Un yanira sulfate 325 6-07 tablet by ity of mg (65 mg 00:00: mouth 2 [place] iron) 00 (two) Medical tablet times Branch daily. ascorbic Yes [id number] 500mg Take 1 U nivers acid, 6-07 tablet by ity of vitamin C, 00:00: mouth 3 [place] 500 mg 00 (three) Medical tablet times Branch daily. ferrous Yes [id number] 325mg Take 1 Un yanira sulfate 325 6-07 tablet by ity of mg (65 mg 00:00: mouth 2 [place] iron) 00 (two) Medical tablet times Branch daily. ascorbic Yes [id number] 500mg Take 1 U nivers acid, 6-07 tablet by ity of vitamin C, 00:00: mouth 3 [place] 500 mg 00 (three) Medical tablet times Branch daily. ferrous 2020- No [id number] 325mg Take 1 U nivers sulfate 325 6-07 02-07 tablet by it y of mg (65 mg 00:00: 00:00 mouth [place] iron) 00 :00 (two) Medical tablet times Branch daily. ascorbic 2020- No [id number] 500mg Take 1 Univers acid, 6-07 02-07 tablet by ity of vitamin C, 00:00: 00:00 mouth 3 [place] 500 mg 00 :00 (three) Medical tablet times Branch daily. doxylamine- 2016-07 Yes [id number] 2{tbl} Take 2 Univers pyridoxine, 1-15 tablets by it y of vit B6, 00:00: mouth at [facility] 00 bedtime. Medic al 10-10 mg Branch per tablet doxylamine- 2016-07 Yes [id number] 2{tbl} Take 2 Univers pyridoxine, 1-15 tablets by it y of vit B6, 00:00: mouth at [facility] 00 bedtime. Medic al 10-10 mg Branch per tablet doxylamine- 2016-07 Yes [id number] 2{tbl} Take 2 Univers pyridoxine, 1-15 tablets by it y of vit B6, 00:00: mouth at [facility] 00 bedtime. Medic al 10-10 mg Branch per tablet doxylamine- 2016-07 Yes [id number] 2{tbl} Take 2 Univers pyridoxine, 1-15 tablets by it y of vit B6, 00:00: mouth at [facility] 00 bedtime. Medic al 10-10 mg Branch per tablet doxylamine- 2016-07 Yes [id number] 2{tbl} Take 2 Univers pyridoxine, 1-15 tablets by it y of vit B6, 00:00: mouth at [facility] 00 bedtime. Medic al 10-10 mg Branch per tablet doxylamine- 2016-07 Yes [id number] 2{tbl} Take 2 Univers pyridoxine, 1-15 tablets by it y of vit B6, 00:00: mouth at [facility] 00 bedtime. Medic al 10-10 mg Branch per tablet doxylamine- 2016-07 Yes [id number] 2{tbl} Take 2 Univers pyridoxine, 1-15 tablets by it y of vit B6, 00:00: mouth at [facility] 00 bedtime. Medic al 10-10 mg Branch per tablet doxylamine2016-07 Yes [id number] 2{tbl} Take 2 Univers pyridoxine, 1-15 tablets by it y of vit B6, 00:00: mouth at [facility] 00 bedtime. Medic al 10-10 mg Branch per tablet doxylamine2016-07 Yes [id number] 2{tbl} Take 2 Univers pyridoxine, 1-15 tablets by it y of vit B6, 00:00: mouth at [facility] 00 bedtime. Medic al 10-10 mg Branch per tablet doxylamine2016-07 Yes [id number] 2{tbl} Take 2 Univers pyridoxine, 1-15 tablets by it y of vit B6, 00:00: mouth at [facility] 00 bedtime. Medic al 10-10 mg Branch per tablet doxylamine- 2016-07 Yes [id number] 2{tbl} Take 2 Univers pyridoxine, 1-15 tablets by it y of vit B6, 00:00: mouth at [facility] 00 bedtime. Medic al 10-10 mg Branch per tablet doxylamine- 2016-07 2020- No [id number] 2{tbl} Take 2 Univers pyridoxine, 1-15 02-07 tablets by i ty of vit B6, 00:00: 00:00 mouth at [facility]) 00 :00 bedtime. Medic al 10-10 mg Branch per tablet PNV 67-iron 2016-07 Yes [id number] 1{each} Take 1 Univers ps-folate 0-18 Each by ity of no.1-dha 00:00: mouth [place] (VITAFOL 00 daily. Medical ULTRA) 29 Branch mg iron- 1 mg-200 mg Cap PNV 67-iron 2016-07 Yes [id number] 1{each} Take 1 Univers ps-folate 0-18 Each by ity of no.1-dha 00:00: mouth [place] (VITAFOL 00 daily. Medical ULTRA) 29 Branch mg iron- 1 mg-200 mg Cap PNV 67-iron 2016-07 Yes [id number] 1{each} Take 1 Univers ps-folate 0-18 Each by ity of no.1-dha 00:00: mouth [place] (VITAFOL 00 daily. Medical ULTRA) 29 Branch mg iron- 1 mg-200 mg Cap PNV 67-iron 2016-07 Yes [id number] 1{each} Take 1 Univers ps-folate 0-18 Each by ity of no.1-dha 00:00: mouth [place] (VITAFOL 00 daily. Medical ULTRA) 29 Branch mg iron- 1 mg-200 mg Cap PNV 67-iron 2016-07 Yes [id number] 1{each} Take 1 Univers ps-folate 0-18 Each by ity of no.1-dha 00:00: mouth [place] (VITAFOL 00 daily. Medical ULTRA) 29 Branch mg iron- 1 mg-200 mg Cap PNV 67-iron 2016-07 Yes [id number] 1{each} Take 1 Univers ps-folate 0-18 Each by ity of no.1-dha 00:00: mouth [place] (VITAFOL 00 daily. Medical ULTRA) 29 Branch mg iron- 1 mg-200 mg Cap PNV 67-iron 2016-07 Yes [id number] 1{each} Take 1 Univers ps-folate 0-18 Each by ity of no.1-dha 00:00: mouth [place] (VITAFOL 00 daily. Medical ULTRA) 29 Branch mg iron- 1 mg-200 mg Cap PNV 67-iron 2016-07 Yes [id number] 1{each} Take 1 Univers ps-folate 0-18 Each by ity of no.1-dha 00:00: mouth [place] (VITAFOL 00 daily. Medical ULTRA) 29 Branch mg iron- 1 mg-200 mg Cap PNV 67-iron 2016-07 Yes [id number] 1{each} Take 1 Univers ps-folate 0-18 Each by ity of no.1-dha 00:00: mouth [place] (VITAFOL 00 daily. Medical ULTRA) 29 Branch mg iron- 1 mg-200 mg Cap PNV 67-iron 2016-07 Yes [id number] 1{each} Take 1 Univers ps-folate 0-18 Each by ity of no.1-dha 00:00: mouth [place] (VITAFOL 00 daily. Medical ULTRA) 29 Branch mg iron- 1 mg-200 mg Cap PNV 67-iron 2016-07 Yes [id number] 1{each} Take 1 Univers ps-folate 0-18 Each by ity of no.1-dha 00:00: mouth [place] (VITAFOL 00 daily. Medical ULTRA) 29 Branch mg iron- 1 mg-200 mg Cap PNV 67-iron 2016-07 2020- No [id number] 1{each} Take 1 Univers ps-folate 0-18 02-07 Each by ity of no.1-dha 00:00: 00:00 mouth [place] (VITAFOL 00 :00 daily. Medical ULTRA) 29 Branch mg iron- 1 mg-200 mg Cap Vital Signs Vital Name Observation Time Observation Value Comments Source Systolic blood 2022-10-06 13:30:00 113 mm[Hg] Univer sity [facility] Diastolic blood 2022-10-06 13:30:00 73 mm[Hg] Unive [facility] Heart rate 2022-10-06 13:30:00 77 /min [facility] Body temperature 2022-10-06 13:30:00 36.17 Isa [facility] Respiratory rate 2022-10-06 13:30:00 18 /min [facility] Body height 2022-10-06 13:30:00 162.6 cm [facility] Body weight 2022-10-06 13:30:00 106.051 kg [facility] BMI 2022-10-06 13:30:00 40.13 kg/m2 [facility] Systolic blood 2022-09-25 18:35:00 125 mm[Hg] Univer sity [facility] Diastolic blood 2022-09-25 18:35:00 84 mm[Hg] Unive rsity [facility] Heart rate 2022-09-25 18:35:00 110 /min [facility] Body temperature 2022-09-25 18:35:00 36.78 Isa [facility] Respiratory rate 2022-09-25 18:35:00 20 /min [facility] Body height 2022-09-25 18:35:00 162.6 cm [facility] Body weight 2022-09-25 18:35:00 103.964 kg [facility] BMI 2022-09-25 18:35:00 39.34 kg/m2 [facility] Systolic blood 2020-02-20 18:45:00 109 mm[Hg] Univer sity [facility] Diastolic blood 2020-02-20 18:45:00 73 mm[Hg] Unive rsity of [facility] Heart rate 2020-02-20 18:45:00 77 /min [facility] Body temperature 2020-02-20 18:45:00 36.89 Isa [facility] Respiratory rate 2020-02-20 18:45:00 16 /min [facility] Body height 2020-02-20 18:45:00 162.6 cm [facility] Body weight 2020-02-20 18:45:00 91.768 kg [facility] BMI 2020-02-20 18:45:00 34.73 kg/m2 [facility] Systolic blood 2019-09-23 20:15:00 125 mm[Hg] Univer sity [facility] Diastolic blood 2019-09-23 20:15:00 77 mm[Hg] Unive rsity of [facility] Heart rate 2019-09-23 20:15:00 78 /min [facility] Body temperature 2019-09-23 20:15:00 37.11 Isa [facility] Respiratory rate 2019-09-23 20:15:00 16 /min Univ [facility] Body height 2019-09-23 20:15:00 162.6 cm [facility] Body weight 2019-09-23 20:15:00 85.475 kg [facility] BMI 2019-09-23 20:15:00 32.35 kg/m2 [facility] Systolic blood 2019-09-01 16:15:00 114 mm[Hg] Univer sity [facility] Diastolic blood 2019-09-01 16:15:00 68 mm[Hg] Unive rsity of [facility] Heart rate 2019-09-01 16:15:00 74 /min [facility] Body temperature 2019-09-01 16:15:00 36.72 Isa [facility] Respiratory rate 2019-09-01 16:15:00 16 /min [facility] Body height 2019-09-01 16:15:00 162.6 cm [facility] Body weight 2019-09-01 16:15:00 85.333 kg [facility] BMI 2019-09-01 16:15:00 32.29 kg/m2 [facility] Systolic blood 2019-08-18 21:56:00 124 mm[Hg] Univer sity [facility] Diastolic blood 2019-08-18 21:56:00 80 mm[Hg] Unive rsity of [facility] Heart rate 2019-08-18 21:56:00 92 /min [facility] Body temperature 2019-08-18 21:56:00 37.22 Isa [facility] Respiratory rate 2019-08-18 21:56:00 16 /min Univ [facility] Body height 2019-08-18 21:56:00 160 cm [facility] Body weight 2019-08-18 21:56:00 86.592 kg [facility] BMI 2019-08-18 21:56:00 33.82 kg/m2 [facility] Systolic blood 2019-08-13 14:00:00 119 mm[Hg] Univer sity [facility] Diastolic blood 2019-08-13 14:00:00 76 mm[Hg] Unive rsity of [facility] Heart rate 2019-08-13 14:00:00 74 /min [facility] Body temperature 2019-08-13 14:00:00 37 Isa Univ ersity of [facility] Respiratory rate 2019-08-13 14:00:00 18 /min [facility] Oxygen saturation in 2019-08-13 14:00:00 99 /min University Arterial blood by [facility] Pulse oximetry [place] Body height 2019-08-11 02:00:00 162 cm Universi ty of [facility] Body weight 2019-08-11 02:00:00 94.348 kg Universi ty of [facility] BMI 2019-08-11 02:00:00 35.95 kg/m2 Universi ty of [facility] Systolic blood 2019-08-03 19:39:00 116 mm[Hg] Univer sity of pressure [facility] Diastolic blood 2019-08-03 19:39:00 75 mm[Hg] Unive rsity of pressure [facility] Heart rate 2019-08-03 19:39:00 116 /min Universi ty of [facility] Body temperature 2019-08-03 19:39:00 37 Isa Univ ersity of [facility] Respiratory rate 2019-08-03 19:39:00 16 /min Univ ersity of [facility] Body height 2019-08-03 19:39:00 165.1 cm Universi ty of [facility] Body weight 2019-08-03 19:39:00 95.369 kg Universi ty of [facility] BMI 2019-08-03 19:39:00 34.99 kg/m2 Universi ty of [facility] Systolic blood 2019-07-26 21:14:00 134 mm[Hg] Univer sity of pressure [facility] Diastolic blood 2019-07-26 21:14:00 87 mm[Hg] Unive rsity of pressure [facility] Heart rate 2019-07-26 21:14:00 92 /min Universi ty of [facility] Body temperature 2019-07-26 21:14:00 37.72 Isa Univ ersity of [facility] Respiratory rate 2019-07-26 21:14:00 16 /min Univ ersity of [facility] Body height 2019-07-26 21:14:00 165.1 cm Universi ty of [facility] Body weight 2019-07-26 21:14:00 96.389 kg Universi ty of [facility] Branch BMI 2019-07-26 21:14:00 35.36 kg/m2 [facility] [place] Systolic blood 2019-03-22 19:25:00 113 mm[Hg] Univer sity of [facility] Diastolic blood 2019-03-22 19:25:00 72 mm[Hg] Unive rsity of [facility] [place] Heart rate 2019-03-22 19:25:00 93 /min Universi ty of [facility] Body temperature 2019-03-22 19:25:00 36.94 Isa Univ ersity of [facility] Respiratory rate 2019-03-22 19:25:00 16 /min Univ ersity of [facility] Body height 2019-03-22 19:25:00 160 cm [facility] [place] Body weight 2019-03-22 19:25:00 93.441 kg Universi ty of [facility] BMI 2019-03-22 19:25:00 36.49 kg/m2 Universi ty of [facility] Systolic blood 2019-02-21 19:44:00 134 mm[Hg] Univer [facility]ity of [facility] [place] Diastolic blood 2019-02-21 19:44:00 77 mm[Hg] Unive rsity of pressure [facility] Heart rate 2019-02-21 19:44:00 101 /min Universi ty of [facility] Body temperature 2019-02-21 19:44:00 37 Isa [facility] Respiratory rate 2019-02-21 19:44:00 16 /min Univ ersity of [facility] Body height 2019-02-21 19:44:00 160 cm [facility] [place] Body weight 2019-02-21 19:44:00 94.121 kg Universi ty of [facility] BMI 2019-02-21 19:44:00 36.76 kg/m2 Universi ty [facility] Medical [place] Procedures Procedure Date / Time Performing Clinician Source Performed DISCLOSURE AND CONSENT, 2022-10-06 05:01:00 Doctor Unassigned, N o [facility] MEDICAL AND SURGICAL [place] PROCEDURES GARDASIL 9 (HPV 9V) 2022-09-25 18:54:20 Theresa Lord [facility] ASSIGNMENT OF BENEFITS 2022-09-25 18:15:42 Doctor Unassigned, No [facility] GARDASIL 9 (HPV 9V) 2020-02-20 19:16:37 Theresa Lord [facility] VACCINE [facility] ASSIGNMENT OF BENEFITS 2020-02-20 18:38:40 Doctor Unassigned, No [facility] GARDASIL 9 (HPV 9V) 2019-09-23 21:08:55 Theresa Lord [facility] POCT TEST 2019-09-23 20:16:00 Theresa Lord [facility] CONSENT FOR 2019-09-23 05:01:00 Doctor Unassigned, No [facility] CONTRACEPTION [facility] CBC WITH DIFFERENTIAL 2019-08-12 09:42:00 Tasha Alberto [facility] VENOUS CORD GAS 2019-08-11 23:27:00 [facility] 2019-08-11 12:19:00 Sergio [facility] PROTEIN CREAT RATIO 2019-08-11 12:19:00 Sergio [facility] URINE RANDOM [facility] LACTATE DEHYDROGENASE 2019-08-11 07:31:00 Sergio [facility] CBC WITH DIFFERENTIAL 2019-08-11 07:31:00 Sergio [facility] SGOT (ASPARTATE AMINO 2019-08-11 04:05:00 Sergio [facility] TRANSFER) Medical Branch CREATININE 2019-08-11 04:05:00 Sergio [facility] ALANINE AMINO 2019-08-11 04:05:00 Sergio [facility] TRANSFERASE(SGPT Medical Branch URIC ACID 2019-08-11 04:05:00 Sergio [facility] HEPATITIS B SURFACE 2019-08-11 04:05:00 Tere [facility] ANTIGEN [facility] GALV ONLY - SYPHILIS 2019-08-11 04:05:00 Pedro Carranza [facility] IGG/IGM [facility] HB ABO GROUPING 2019-08-11 04:04:00 Perry-DinahPedro mccoyi [facility] RHO (D) IMMUNE GLOBULIN 2019-08-11 04:04:00 Tasha Alberto [facility] POCT URINALYSIS 2019-08-03 19:42:00 Theresa Lord [facility] POCT URINALYSIS 2019-07-26 21:46:00 Theresa Lord [facility] POCT URINALYSIS 2019-03-22 19:31:00 Theresa Lord [facility] POCT URINALYSIS 2019-02-21 19:44:00 Theresa Lord [facility] Encounters Start End Encounter Admission Attending Care Care Encounter Source Date/Time Date/Time Type Type Clinicians Facility Department ID 2023-05-02 2023-05-02 Outpatient [id number] PRIV PRIV [id number] [facility] 00:00:00 00:00:00 dimichellea_S [id number] Medic al 2022-10-06 2022-10-[address] [facility] [id number] Univers 08:30:00 08:59:30 JOSIE huang [facility] 2022-10-06 2022-10-06 Office Castro [facility] 1.2.840.114 [id number] Univers 08:30:00 08:59:30 Visit Josie Salazar DRY CELL SEALER [id number] i ty of [facility] 4.2.7.2.686 Darrin as MATERNAL [phone] Med ical & CHILD [address] [place] [address] 2022-10-06 2022-10-06 Orders Doctor ARELI [id number] [id number] Univers 00:00:00 00:00:00 Only Unassigned, LINDA 350.1.13.10 ity of [place] [facility] 42.7.2.686 Darrin as [id number] [address] 2022-09-25 2022-09-[address] [facility] [id number] Univers 13:15:00 14:35:28 THERESA huang o f [facility] 2022-09-25 2022-09-25 Office Risa [facility] [id number] Univers 13:15:00 14:35:28 Visit Theresa Farfan DRY CELL SEALER [id number] ity of [facility] 4.2.7.2.686 Darrin as MATERNAL [phone] [facility] & CHILD [address] [place] [address] 2022-09-25 2022-09-25 Orders Doctor ARELI 1.2.840.114 [id number] Univers 00:00:00 00:00:00 Only Unassigned, LINDA 350.1.13.10 ity of [place] [facility] 4.2.7.2.686 Darrin as [id number] [address] 2020-05-23 2020-05-[address] [facility] [id number] Univers 14:00:00 14:00:00 ity of [facility] 2020-02-20 2020-02-20 Nurse Visit, [facility] Nurse RUST 1.2 .840.114 [id number] Univers 13:40:12 14:05:43 Visit Theresa Lord DRY CELL SEALER 350.1.13. 10 ity of [facility] 4.2.7.2.686 Darrin as MATERNAL [id number] [facility] & CHILD [address] [place] [address] 2020-02-20 2020-02-20 [facility] [id number] Univers 13:30:00 13:30:00 THERESA henson [facility] 2020-02-20 2020-02-20 Orders Doctor ARELI 1.2.840.114 [id number] Univers 00:00:00 00:00:00 Only Unassigned, LINDA 350.1.13.10 ity of [place] [facility] 4.2.7.2.686 Darrin as [id number] [address] 2019-11-23 2019-11-[address] [facility] [id number] Univers 13:00:00 13:00:00 ity of [facility] 2019-11-09 2019-11-09 [facility] [id number] Univers 14:15:00 14:15:00 THERESA trevino f [facility] 2019-11-09 2019-11-09 [facility] 1.2.840.114 [id number] Univers 12:42:08 12:57:08 ne Visit Theresa C DRY CELL SEALER 350.1.13.10 ity of [facility] 4.2.7.2.686 Darrin as MATERNAL [id number] [facility] & [address] 2019-10-07 2019-10-07 Outpatient R RISA, [facility] [id number] Univers 13:30:00 13:30:00 THERESA huang o f [facility] 2019-10-06 2019-10-06 Outpatient R RISA, [facility] [id number] Univers 08:45:00 08:45:00 THERESA huang o f [facility] 2019-10-06 2019-10-06 [facility]phone [facility] 1.2.840.114 [id number] Univers 00:00:00 00:00:00 [facility][1] DRY CELL SEALER 350.1.13.10 ity of [facility] 4.2.7.2.686 Darrin as MATERNAL [phone] [address] 2019-09-23 2019-09-23 Office [facility] [id number] Univers 15:04:55 16:09:38 Visit Theresa Naheed DRY CELL SEALER 350.1.13.10 ity of [facility] 4.2.7.2.686 [place]arr[place] as MATERNAL [id number] [address] 2019-09-23 2019-09-23 Outpatient R RISA, [facility] [id number] Univers 15:00:00 15:00:00 THERESA huang o [facility] 2019-09-23 2019-09-23 Orders Doctor ARELI 1.2.840.114 [id number] Univers 00:00:00 00:00:00 Only Unassigned, LINDA 350.1.13.10 ity of [place] [facility] 4.2.7.2.686 Darrin as [id number] [address] 2019-09-01 2019-09-01 Routine [facility] [id number] Univers 10:02:22 10:17:22 Theresa C DRY CELL SEALER 350.1.13.10 ity of Visit [facility] 4.2.7.2.686 Darrin as MATERNAL [id number] [facility] ical & CHILD [address] [place] [address] 2019-09-01 2019-09-[address] [facility] [id number] Univers 09:30:00 09:30:00 THERESA ity o f [facility] 2019-08-18 2019-08-18 Nurse Visit, [facility] Nurse RUST 1.2 .840.114 [id number] Univers 09:28:08 09:52:41 Visit Theresa Lord C DRY CELL SEALER 350.1.13. 10 ity of [facility] 4.2.7.2.686 Darrin as MATERNAL [phone] [facility] & CHILD [address] [place] [address] 2019-08-10 2019-08-13 [facility] [id number] Univers 18:34:00 14:36:00 Encounter Sabrina MCKEON 350.1.13.10 ity of [facility] 4.2.7.2.686 Darrin as [id number] [address] 2019-08-03 2019-08-03 Routine Risa [facility] [id number] Univers 13:13:09 13:53:30 Theresa C DRY CELL SEALER 350.1.13.10 ity of Visit [facility] 4.2.7.2.686 Darrin as MATERNAL [id number] [facility] ical & CHILD [address] [place] [address] 2019-07-26 2019-07-26 Routine Risa, [facility] [id number] Univers 14:51:29 15:37:05 Theresa C DRY CELL SEALER 350.1.13.10 ity of Visit [facility] 4.2.7.2.686 Darrin as MATERNAL [id number] [facility] & CHILD [address] [place] [address] 2019-03-22 2019-03-22 Routine Theresa Lord [facility] [id number] [id number] Univers 14:01:38 14:51:32 Josiah Ami Medrano DRY CELL SEALER 350.1.13.10 ity of Visit REGIONAL 4.2.7.2.686 Darrin as MATERNAL [phone] [facility] ical & CHILD [address] [place] [address] 2019-03-22 2019-03-22 Telephone Keishasidrajonathon [facility] 1.2.840.114 [id number] Univers 00:00:00 00:00:00 Theresa Farfan DRY CELL SEALER 350.1.13.10 ity of REGIONAL 4.2.7.2.686 Darrin as MATERNAL [id number] [facility] & CHILD [address] [place] [address] 2019-02-23 2019-02-23 Junior Software Engineer [facility]tras[facility] 1.2 .840.114 [id number] Univers 11:21:38 11:46:18 Visit Sabrina Vickers DRY CELL SEALER 350.1.13.10 ity of REGIONAL 4.2.7.2.686 Darrin as MATERNAL [id number] [facility] & CHILD [address] [place] [address] 2019-02-23 2019-02-23 Abstract Robles [facility] 1.2.840.114 [id number] Univers 00:00:00 00:00:00 Radha Moody DRY CELL SEALER 350.1.13.10 ity of REGIONAL 4.2.7.2.686 Darrin as MATERNAL [id number] [facility] & [address] 2019-02-21 2019-02-21 [facility]ine [facility] 1.2.840.114 [id number] Univers 14:37:15 15:06:20 Stephennda R DRY CELL SEALER 350.1.13.10 ity of Visit REGIONAL 4.2.7.2.686 Darrin as MATERNAL [phone] [facility] & CHILD [address] [place] [address] Results Test Description Test Time Test Comments Results Result Comments Source POCT TEST 2019-09-23 20:17:00 Test Item Value Reference Range Interpretation Comme nts POCT PREG (test code = 1605) Negative On board controls acceptable with C Line (test code = 3574) Yes POCT PREG LOT # (test code = 3575) POCT PREG TEST DATE (test code = 3576) [id number] 20:17:00 Test Item Value Reference Range Interpretation Comments POCT PREG (test code = 1605) Negative On board controls acceptable with C Yes Line (test code = 3574) POCT PREG LOT # (test code = 3575) POCT PREG TEST DATE (test code = 3576) [facility] SYPHILIS [id number] 14:54:00 Test Item Value Reference Range Interpretation Comments Syphilis IgG/IgM (test Non-reactive Non-reactive code = 03082-6) FARHAD (test code = FARHAD) Non-reactive - No serologic evidence of T. pallidum infection. Cannot exclude incubating or early syphilis. Submit a second specimen in 2-4 weeks if syphilis is clinically suspected. Equivocal - Further testing to follow. Reactive - Further testing to follow. Lab Interpretation (test Normal code = 68491-0) [facility] WITH [id number] 10:19:00 Test Item Value Reference Range Interpretation Comments WBC (test code = See_Comment H [Automated 4290-2) message] The system which generated this result transmit darren reference range : 4.30 - 11.10 10*3/?L. The reference range was not used to interpret this result as normal/abnormal . RBC (test code = See_Comment [Automated 459-8) message] The system which generated this result [...] RDW-SD (test code = 44.3 fL 39-49.9 71786-9) RDW-CV (test code = 16.9 % 12-15.5 H 788-0) PLT (test code = See_Comment [Automated 777-3) message] The system which generated this result transmit darren reference range : 166 - 358 10*3/ ?L. The reference range was not u sed to interpret th is result as normal/abnormal . MPV (test code = 12.1 fL 9.5-12.9 30170-9) NRBC/100 WBC (test See_Comment [Automat ed code = 2068886279) message] The system which generated this result transmit darren reference range : 0.0 - 10.0 /100 WBCs. The reference range was not used to interpret this result as normal/abnormal . NRBC x10^3 (test code <0.01 See_Comment [Auto mated = 2669653969) message] The system which generated this result transmit darren reference range : 10*3/?L. The reference range was not used to interpret this result as normal/abnormal . GRAN MAT (NEUT) % 70.9 % (test code = 770-8) IMM GRAN % (test code 0.50 % = 6279828821) LYMPH % (test code = 21.0 % 736-9) MONO % (test code = 7.2 % 5905-5) EOS % (test code = 0.2 % 713-8) BASO % (test code = 0.2 % 706-2) GRAN MAT x10^3(ANC) 10.09 10*3/uL 1.88-7.09 H (test code = 7367901970) IMM GRAN x10^3 (test 0.07 10*3/uL 0-0.06 H code = 9567260869) LYMPH x10^3 (test code 2.98 10*3/uL 1.32-3.29 = 731-0) MONO x10^3 (test code 1.02 10*3/uL 0.33-0.92 H = 742-7) EOS x10^3 (test code = 0.03 10*3/uL 0.03-0.39 711-2) BASO x10^3 (test code 0.03 10*3/uL 0.01-0.07 = 704-7) Lab Interpretation Abnormal (test code = 09164-8) [facility] (D) IMMUNE [id number] 02:49:21 Test Item Value Reference Range Interpretation Comments RHIG CANDIDATE? No- see comment Patient i s not a (test code = candidate for R hIg- 5055) Patient is Rh Positive.Perfor med at [facility] - [facility] Blood [address] [place] [address] [id number] Free: [phone] A No. [id number] [facility] CORD [id number] 23:39:00 Test Item Value Reference Range Interpretation Comments VENOUS BASE EXCESS, mEq/L CORD (test code = 5637001186) VENOUS PH, CORD (test 7.25-7.45 code = 6969686326) VENOUS PC02, CORD See_Comment [Automate d message] The (test code = system which ge nerated 1073931568) this result tra nsmitted reference range : 27 - 49 mmHg. The refer ence range was not used to interpret this result as normal/abnormal . VENOUS PO2, CORD (test See_Comment [Aut omated message] The code = 9441049516) system [facility] generated this result tra nsmitted reference range : 17 - 41 mmHg. The refer ence range was not used to interpret this result as normal/abnormal . VENOUS BICARBONATE, See_Comment [Automa darren message] The CORD (test code = system wh ch generated 7720400240) this result tra nsmitted reference range : 12 - 29 mEq/L. The refe rence range was not used to interpret this result as normal/abnormal . [facility] CORD [id number] 23:39:00 Test Item Value Reference Range Interpretation Comments BASE EXCESS, CORD mEq/L (test code = 8490320521) AC PH, CORD (BEAKER) 7.18-7.38 (test code = 9336430705) PC02, CORD (test code See_Comment [Auto mated message] The = 4172787983) system which g enerated this result transmit darren reference range : 32 - 66 mmHg. The refer ence range was not used to interpret this result as normal/abnormal . PO2, CORD (test code See_Comment [Autom ated message] The = 2206452991) system which g enerated this result transmit darren reference range : 10 - 30 mmHg. The refer ence range was not used to interpret this result as normal/abnormal . BICARBONATE, CORD See_Comment [Automate d message] The (test code = system which ge nerated this 9998781545) result transmit darren reference range : 17 - 27 mEq/L. The refe rence range was not used to interpret this result as normal/abnormal . [facility] CREAT Ratio Urine [id number] 13:03:00 Test Item Value Reference Range Interpretation Comments T. PROT U (test code = 2888-6) 12 mg/dL CREAT U (test code = 4156862840) 215.7 mg/dL Protein/Creatinine Ratio Urine 0.0-2.0 (test code = 4811413471) [facility] HospitalUrinalysis2020-02-06 12:45:00 Test Item Value Reference Range Interpretation Comments APPEARANCE (test code = Hazy Clear A 9421446825) COLOR (test code = Yellow Yellow 1589471105) PH (test code = 4.8-8.0 2680712172) SP GRAVITY (test code = 1.003-1.030 3524590565) GLU U QUAL (test code = Normal Normal 9598861722) BLOOD (test code = Negative Negative INTERFERE NCE FROM 5276542445) ASCORBIC ACID M AY CAUSE FALSE NEG ATIVE RESULT KETONES (test code = 5 mg/dL Negative A 4274713398) PROTEIN (test code = 30 mg/dL Negative A 2887-8) UROBILIN (test code = 4.0 mg/dL Normal A 1334028835) BILIRUBIN (test code = Negative Negative 7808207636) NITRITE (test code = Negative Negative 5824469338) LEUK REFUGIO (test code = 25/uL Negative A 4361108267) RBC/HPF (test code = See_Comment [Autom ated message] 1182031677) The system [employer] generated this result transmitted ref erence range: 0 - 3 HP F. The reference range was not used to int erpret this result as normal/abnormal . WBC/HPF (test code = See_Comment H [Autom ated message] 7712067560) The system [employer] generated this result transmitted ref erence range: 0 - 5 HP F. The reference range was not used to int erpret this result as normal/abnormal . BACTERIA (test code = Moderate Negative A 6409754247) MUCOUS (test code = Marked Negative LPF A 2620078032) SQ EPITH (test code = See_Comment H [Auto mated message] 4900734249) The system [employer] generated this result transmitted ref erence range: <=2 HPF. The reference range was not used to int erpret this result as normal/abnormal . Lab Interpretation Abnormal (test code = 52953-9) [facility] Surface [id number] 09:09:00 Test Item Value Reference Range Interpretation Comments HBsAg Semi-Quantitative (test code = Negative Negative 5195-3) [facility] [id number] 08:41:00 Test Item Value Reference Range Interpretation Comments LDH (test code = 4656759217) 433 U/L 300-600 Lab Interpretation (test code = Normal 92136-5) [facility] Acid [id number] 08:11:00 Test Item Value Reference Range Interpretation Comments URIC ACID (test code = 8185768221) 4.1 mg/dL 2.9-6 Lab Interpretation (test code = Normal 82665-0) [facility] [id number] 08:11:00 Test Item Value Reference Range Interpretation Comments CREATININE (test code 0.50 mg/dL 0.5-1.04 = 1369745383) eGFR Calculation mL/min/1.73m2 (Non-) (test code = 0286247113) eGFR Calculation mL/min/1.73m2 () (test code = 1161886251) FARHAD (test code = FARHAD) Association of [...] or urine or abnormalities in imaging tests). [facility] (Asparate Amino Transfer)2019-08-11 08:11:00 Test Item Value Reference Range Interpretation Comments AST(SGOT) (test code = 3075269848) 22 U/L 13-40 Lab Interpretation (test code = Normal 13424-4) [facility] Hospital[facility] Amino Transferase (SGPT)2019-08-11 08:11:00 Test Item Value Reference Range Interpretation Comments ALTv (test code = 1742-6) 10 U/L 5-35 Lab Interpretation (test code = Normal 20247-2) [facility] WITH [id number] 07:44:00 Test Item Value Reference Range Interpretation Comments WBC (test code = See_Comment [Automated 1481-2) message] The sy stem which generated this result transmitted reference range : 4.30 - 11.10 10*3/?L. The reference range was not used to interpret this result as normal/abnormal . RBC (test code = See_Comment [Automated 448-8) message] The sy stem which generated this [...] RDW-SD (test code = 43.4 fL 39-49.9 87353-0) RDW-CV (test code = 17.0 % 12-15.5 H 788-0) PLT (test code = See_Comment [Automated 777-3) message] The sy stem which generated this result transmitted reference range : 166 - 358 10*3/ ?L. The reference r gladys was not used to interpret this result as normal/abnormal . MPV (test code = 11.5 fL 9.5-12.9 95644-6) NRBC/100 WBC (test See_Comment [Automat ed code = 9569054217) message] The system which generated this result transmitted reference range : 0.0 - 10.0 /100 WBCs. The refer ence range was not u sed to interpret th is result as normal/abnormal . NRBC x10^3 (test code <0.01 See_Comment [Auto mated = 6981121055) message] The s ystem which generated this result transmitted reference range : 10*3/?L. The reference range was not used to interpret this result as normal/abnormal . GRAN MAT (NEUT) % 50.4 % (test code = 770-8) IMM GRAN % (test code 0.30 % = 3098071612) LYMPH % (test code = 39.9 % 736-9) MONO % (test code = 8.3 % 5905-5) EOS % (test code = 0.8 % 713-8) BASO % (test code = 0.3 % 706-2) GRAN MAT x10^3(ANC) 3.84 10*3/uL 1.88-7.09 (test code = 8282848501) IMM GRAN x10^3 (test <0.03 0-0.06 code = 3520498125) LYMPH x10^3 (test code 3.04 10*3/uL 1.32-3.29 = 731-0) MONO x10^3 (test code 0.63 10*3/uL 0.33-0.92 = 742-7) EOS x10^3 (test code = 0.06 10*3/uL 0.03-0.39 711-2) BASO x10^3 (test code <0.03 0.01-0.07 = 704-7) Lab Interpretation Abnormal (test code = 88654-8) [facility] HospitalType and Screen - ONCE [id number] 04:44:04 Test Item Value Reference Range Interpretation Comments ABO & RH (test code O POSITIVE Performe d at RUST = 20) Laboratory [facility] Blood [facility]3 [address] [facility] [address]Pjbs Free: [phone] A No. [id number] IAT (test code = Negative Performed a t RUST 1185) Laboratory [facility] Blood [facility]3 [address] [facility] s [address]Qahb Free: [phone] A No. [id number] [facility] W SPECIFIC [id number] 19:42:00 Test Item Value Reference Range Interpretation [...] POCT U APPEAR (test code = 3267) [facility] SPECIFIC [id number] 19:42:00 Test Item Value Reference Range Interpretation [...] POCT U APPEAR (test code = 3267) [facility] URINALYSIS W SPECIFIC [id number] 21:46:00 Test Item Value Reference Range Interpretation [...] POCT U APPEAR (test code = 3267) [facility] URINALYSIS W SPECIFIC [id number] 19:31:00 Test Item Value Reference Range Interpretation [...] POCT U APPEAR (test code = 3267) [facility] URINALYSIS W SPECIFIC [id number] 19:45:00 Test Item Value Reference Range Interpretation [...] 3267) Lab Interpretation (test code = Abnormal 06296-4) [facility] URINALYSIS W SPECIFIC [id number] 19:45:00 Test Item Value Reference Range Interpretation [...] 3267) Lab Interpretation (test code = Abnormal 73182-8) [facility]"
[2023-06-05 13:39] LABS: SARS-CoV-2 Antigen Rapid Res Negative (Negative)
--- NOTE | 2023-06-05 13:59 | EDPHYS ---
Physician Documentation [facility] Name: Emily Rahman Age: 23 yrs Sex: Female : 2000 Arrival Date: 06/05/2023 Time: 12:30 Bed DIS3 Private MD: ED Physician Vijay Fowler HPI: 06/05 13:56 This 23 yrs old Black Female presents to ER via Ambulatory with complaints of Cough, rn Sore Throat. 13:56 The patient or guardian reports cough, Sore throat. Onset: The symptoms/episode rn began/occurred 2 day(s) ago. Severity of symptoms: At their worst the symptoms were mild, in the emergency department the symptoms are unchanged. Modifying factors: The symptoms are alleviated by nothing, the symptoms are aggravated by nothing. The patient has not experienced similar symptoms in the past. Patient reports 2 to 3 days of cough and sore throat. Positive headache positive subjective fever no shortness of breath.. Historical: - Allergies: 12:52 No Known Drug Allergies; hb - PMHx: 12:52 Asthma; hb - PSHx: 12:52 Tonsillectomy; hb - Immunization history:: Adult Immunizations up to date. - Social history:: Smoking status: Patient denies any tobacco usage or history of. - Family history:: not pertinent. - Hospitalizations: : No recent hospitalization is reported. ROS: 13:56 Constitutional: Positive chills ENT: Positive sore throat Cardiovascular: Negative for rn chest pain, palpitations, and edema, Respiratory: Positive cough, negative for shortness of breath Abdomen/GI: Negative for abdominal pain, nausea, vomiting, diarrhea, and constipation, MS/Extremity: Negative for injury and deformity, Skin: Negative for injury, rash, and discoloration, Neuro: Positive for headache Exam: 13:56 Constitutional: This is a well developed, well nourished patient who is awake, alert, rn and in no acute distress. Head/Face: Normocephalic, atraumatic. ENT: Mild pharyngeal erythema, no stridor. Uvula midline. No evidence of peritonsillar abscess Neck: Nontender cervical lymphadenopathy Respiratory: No increased work of breathing, no retractions or nasal flaring. Vital Signs: 12:50 BP 141 / 86; Pulse 87; Resp 16; Temp 97.5(TE); Pulse Ox 97% on R/A; Weight 97.52 kg; hb Height 5 ft. 6 in. ; Pain 8/10; 12:50 Body Mass Index 34.70 (97.52 kg, 167.64 cm) hb 12:50 Pain Scale: Adult hb MDM: 12:38 Patient medically screened. rn 13:56 Differential Diagnosis: Influenza Upper Respiratory Infection Sinusitis Pharyngitis rn Viral Syndrome. Data reviewed: vital signs, nurses notes, lab test result(s), and as a result, I will discharge patient. Counseling: I had a detailed discussion with the patient and/or guardian regarding the historical points, exam findings, and any diagnostic results supporting the discharge/admit diagnosis, lab results, the need for outpatient follow up, to return to the emergency department if symptoms worsen or persist or if there are any questions or concerns that arise at home. Special discussion: I discussed with the patient/guardian in detail that at this point there is no indication for admission to the hospital. It is understood, however, that if the symptoms persist or worsen the patient needs to return immediately for re-evaluation. 06/05 12:38 Order name: SARS RAPID; Complete Time: 13:46 rn 06/05 12:38 Order name: Flu; Complete Time: 13:46 rn 06/05 12:38 Order name: Strep; Complete Time: 13:46 rn Administered Medications: No medications were administered Disposition Summary: 06/05/23 13:58 Discharge Ordered Notes: Location: Home rn Problem: new rn Symptoms: are unchanged rn Condition: Stable rn Diagnosis - Streptococcal pharyngitis rn Followup: rn - With: Private Physician - When: As needed - Reason: Recheck today's complaints, Re-evaluation by your physician Discharge Instructions: - Discharge Summary Sheet rn - Pharyngitis rn - Strep Throat, Adult rn Forms: - Medication Reconciliation Form rn - Thank You Letter rn - Antibiotic morning babysitter - Prescription Opioid Use rn - Patient Portal Instructions rn - Leadership Thank You Letter rn Prescriptions: - Augmentin 875-125 mg Oral Tablet - take 1 tablet ORAL route every 12 hours for 10 days; 20 tablet; Refills: 0, rn Product Selection Permitted Signatures: Dispatcher [employer] EDVijay Art MD MD rn Baxter, Heather, RN RN hb
--- NOTE | 2023-06-05 13:59 | ER ---
Nurse's Notes [facility] Name: Emily Rahman Age: 23 yrs Sex: Female : 2000 Arrival Date: 06/05/2023 Time: 12:30 Bed DIS3 Private MD: Diagnosis: Streptococcal pharyngitis Presentation: 06/05 12:50 Chief complaint: Headache, sore throat, cough, and body aches x 2-3 days. Coronavirus hb screen: Client presents with at least one sign or symptom that may indicate coronavirus-19. Provider contacted for isolation considerations. Ebola Screen: No symptoms or risks identified at this time. Initial Sepsis Screen: Does the patient meet any 2 criteria? No. Patient's initial sepsis screen is negative. Does the patient have a suspected source of infection? No. Patient's initial sepsis screen is negative. Risk Assessment: Do you want to hurt yourself or someone else? Patient reports no desire to harm self or others. Onset of symptoms was July 02, 2023. 12:50 Method Of Arrival: Ambulatory hb 12:50 Acuity: CUCA 4 hb Historical: - Allergies: 12:52 No Known Drug Allergies; hb - PMHx: 12:52 Asthma; hb - PSHx: 12:52 Tonsillectomy; hb - Immunization history:: Adult Immunizations up to date. - Social history:: Smoking status: Patient denies any tobacco usage or history of. - Family history:: not pertinent. - Hospitalizations: : No recent hospitalization is reported. Screenin:12 [facility] ED Fall Risk Assessment (Adult) Score/Fall Risk Level 0 - 2 = Low Risk jl7 Oriented to surroundings, Maintained a safe environment. Abuse screen: Denies threats or abuse. Denies injuries from another. Nutritional screening: No deficits noted. Tuberculosis screening: No symptoms or risk factors identified. Vital Signs: 12:50 BP 141 / 86; Pulse 87; Resp 16; Temp 97.5(TE); Pulse Ox 97% on R/A; Weight 97.52 kg; hb Height 5 ft. 6 in. ; Pain 8/10; 12:50 Body Mass Index 34.70 (97.52 kg, 167.64 cm) hb 12:50 Pain Scale: Adult hb ED Course: 12:32 Patient arrived in ED. rg4 12:38 Vijay Fowler MD is Attending Physician. rn 12:52 Triage completed. hb 12:52 Arm band placed on. hb 14:12 Patient has correct armband on for positive identification. jl7 14:12 No provider procedures requiring assistance completed. Patient did not have IV access jl7 during this emergency room visit. Administered Medications: No medications were administered Medication: 14:12 VIS not applicable for this client. jl7 Outcome: 13:58 Discharge ordered by . rn 14:12 Discharged to home ambulatory, jl7 14:12 Condition: stable 14:12 Discharge instructions given to patient, Instructed on discharge instructions, follow up and referral plans. medication usage, Demonstrated understanding of instructions, follow-up care, medications, Prescriptions given X 1, 14:13 Patient left the ED. jl7 Signatures: Vijay Fowler MD MD rn Baxter, Heather, RN Micki Garcia rg4 Steve Greer RN RN jl7
[2023-06-05 14:18] VITALS: BP 141/86; TEMP 97.5; O2SAT 97
== END 2023-06-05 14:13 | disposition home or self-care (01) ==
LOC: ER 12:30
DX: J02.0 Streptococcal pharyngitis (principal); Z11.52 Encounter for screening for COVID-19
CPT/HCPCS: 36415; 87081; 87804; 87811; 99283

== ENCOUNTER → 2023-07-29 | Emergency (ER) | payer SELFPAY ==
--- OUTSIDE RECORDS SUMMARY | 2023-07-29 18:59 | XMS REPORT | Continuity of Care Document ---
Author Name Unknown Address [address] [facility] [address] [place] [address] [facility] thconnect Address [address] [facility] [place] [address] Care Team Providers Care Recruiter Account Manager Name Role Phone THERESA LORD Primary Care Physician Wilfrid jarrell GC_GCBZW_Nida_S Attending Clinician JOSIE Johnston Attending Clinician Josie Johnston CNM Attending Clinician [phone] Doctor Unassigned, [place] Attending Clinician U THERESA Maciel Attending Clinician Dung Lord WHTheresa GRUBBS Attending Clinician + Visit, [facility] Nurse Attending Clinician Jacqueline Vickers MD, Sabrina Bahena Attending Clinician [phone] Ami Paige Attending Clinician [phone] Ultrasound, AntonMfjosiah Attending Clinician Radha Granados Attending Clinician + [phone] NATANAEL_GCBZW_Nida_S Admitting Clinician Sabrina Mistry MD Admitting Clinician [phone] Payers Payer Name Policy Type Policy Number Effective Date Expirati on Date Source [employer] [place] [id number] 2022 00:00:00 [facility] [id number] 2019 00:00:00 Problems Condition Name Condition Details Condition Category Status Onset Date Resolution Date Last Treatment Date Treating Clinician Comments Source Nexplanon in place Nexplanon in place Disease Active 5 00:00: 00 [facility] Other general counseling and advice for contracept margie management Other general counseling and advice for contracept margie management Disease Active 5- 00:00: 00 [facility] Routine follow-up Routine follow-up Disease Active 09-01 00:00: 00 [facility] (spontaneo us vaginal delivery) (spontaneo us vaginal delivery) Disease Active 2-07 00:00: 00 [facility] Single live Single live Disease Active 2- 00:00: 00 [facility] History of asthma History of asthma Disease Active 2-07 00:00: 00 [facility] Gestationa l hypertensi on Gestationa l hypertensi on Disease Active 206 00:00: 00 [facility] Gestationa l hypertensi on Gestationa l hypertensi on Disease Active 206 00:00: 00 [facility] Obesity (BMI 30-39.9) Obesity (BMI 30-39.9) Disease Active 2-05 00:00: 00 [facility] 39 weeks gestation of 39 weeks gestation of Disease Active 205 00:00: 00 [facility] Susceptibl e to varicella (non-immun e), currently Susceptibl e to varicella (non-immun e), currently Disease Active 12-20 00:00: 00 Overview: Formattin g of this note might be different from the original. Address pp [facility] Multiparit y Multiparit y Disease Active 12-17 00:00: 00 [facility] Obesity affecting Obesity affecting Disease Active 2016-07 00:00: 00 [facility] Supervisio n of high risk , antepartum Supervisio n of high risk , antepartum Disease Active 2017-1 0-18 00:00: 00 [facility] Allergies, Adverse Reactions, Alerts Allergy Name Allergy Type Status Severity Reaction(s) Onset Date Inactive Date Treating Clinician Comments Source NO KNOWN ALLERGIE S Drug Class Active [facility] Social History Social Habit Start Date Stop Date Quantity Comments Source ASSERTION 2018-11-24 00:00:00 [facility] Exposure to SARS-CoV-2 (event) 2022-09-26 00:00:00 2022-10-06 08:16:00 Not sure [facility] Tobacco use and exposure 2022-10-06 00:00:00 2022-10-06 00:00:00 Smokeless tobacco non-user [facility] Alcohol intake 2022-10-06 00:00:00 2022-10-06 00:00:00 Current non-drinker of alcohol (finding) [facility] Alcohol Comment 2018-12-17 00:00:00 2018-12-17 00:00:00 last sexual intercourse 12/09/2018 [facility] Sex Assigned At 1998 00:00:00 1998 00:00:00 [facility] Smoking Status Start Date Stop Date Source Never smoked tobacco [facility] Medications Ordered Medication Name Filled Medication Name Start Date Stop Date Current Medication? Ordering Clinician Indication Dosage Frequency Signature (SIG) Comments Components Source etonogestre l (NEXPLANON) implant 68 mg 2020-0 3-20 21:45: 00 09-22 20:45 :00 No [id number] 68mg [facility] etonogestre l (NEXPLANON) implant 68 mg 2020-0 3-20 21:45: 00 09-22 20:45 :00 No [id number] 68mg 68 mg, Subdermal, ONCE NOW, 1 dose, 09/23/19 at 1645, Routine
Use approved by: [employer] [facility] etonogestre l (NEXPLANON) implant 68 mg 2020-0 3-20 21:45: 00 09-22 20:45 :00 No [id number] 68mg [facility] etonogestre l (NEXPLANON) implant 68 mg 2020-0 3-20 21:45: 00 09-22 20:45 :00 No [id number] 68mg 68 mg, Subdermal, ONCE NOW, 1 dose, Thu09/23/19 at 1645, Routine
Use approved by: [employer] [facility] varicella virus vaccine live (VARIVAX (PF)) injection 0.5 mL 08-13 13:26: 45 Yes .5mL 0.5 mL, Subcutaneo us, ONCE-PRIOR TO DISCHARGE, 1 dose, Starting 08/13/19 at 0726, Until Discontinu ed, Routine, Give vaccine prior to discharge [facility] ferrous sulfate tablet 325 mg 08-12 15:00: 00 Yes 325mg 325 mg, Oral, DAILY, First dose on Thu08/12/19 at 0900, Until Discontinu ed, Routine [facility] ibuprofen (IBU) tablet 600 mg 08-12 02:45: 55 Yes 600mg 600 mg, Oral, Q6HPRN, Starting [facility] 08/11/19 at 2044, Until Discontinu ed, Routine, Pain (scale 4-6) [facility] acetaminoph en (TYLENOL) tablet 650 mg 08-12 02:45: 55 Yes 650mg 650 mg, Oral, Q6HPRN, Starting [facility] 08/11/19 at 2044, Until Discontinu ed, Routine, Pain (scale 1-3) [facility] diphenhydrA MINE (BENADRYL) tablet 25 mg 08-12 02:45: 55 Yes 25mg 25 mg, Oral, Q6HPRN, Starting [facility] 08/11/19 at 2044, Until Discontinu ed, Routine, Sleep, Itching [facility] ondansetron (ZOFRAN (PF)) injection 4 mg 08-12 02:45: 55 Yes 4mg 4 mg, Slow IV Push, Q8HPRN, Starting [facility] 08/11/19 at 2044, Until Discontinu ed, Routine, Nausea and Vomiting (N/V) [facility] simethicone (GAS RELIEF (SIMETHICON E)) chewable tablet 160 mg 08-12 02:45: 55 Yes 160mg 160 mg, Oral, PC+HSPRN, Starting [facility] 08/11/19 at 2044, Until Discontinu ed, Routine, Gas [facility] docusate calcium (SURFAK) capsule 240 mg 08-12 02:45: 55 Yes 240mg 240 mg, Oral, QDAILYPRN, Starting [facility] 08/11/19 at 2044, Until Discontinu ed, Routine, Constipati on [facility] magnesium hydroxide (MILK OF MAGNESIA) 400 mg/5 mL suspension 30 mL 08-12 02:45: 55 Yes 30mL 30 mL, Oral, QDAILYPRN, Starting [facility] 08/11/19 at 2044, Until Discontinu ed, Routine, Constipati on [facility] benzocaine- menthol (DERMOPLAST ) 20-0.5 % topical spray 08-12 02:45: 55 Yes Topical, PRN, Starting [facility] 08/11/19 at 2044, Until Discontinu ed, Routine, Perineum discomfort [facility] docusate calcium 240 mg capsule 08-12 00:00: 00 Yes [id number] 240mg Take 1 capsule by mouth once daily as needed for Constipati on. [facility] ibuprofen 600 mg tablet 08-12 00:00: 00 Yes [id number] 600mg Take 1 tablet by mouth every 6 (six) hours as needed (Pain). Take with food or milk. [facility] Iron Fum & P-FA-Vit B & C No.9 (INTEGRA PLUS) 125 mg iron- 1 mg Cap 08-12 00:00: 00 Yes [id number] 1{capsu le} Take 1 capsule by mouth daily. [facility] docusate calcium 240 mg capsule 08-12 00:00: 00 Yes [id number] 240mg Take 1 capsule by mouth once daily as needed for Constipati on. [facility] ibuprofen 600 mg tablet 08-12 00:00: 00 Yes [id number] 600mg Take 1 tablet by mouth every 6 (six) hours as needed (Pain). Take with food or milk. [facility] Iron Fum & P-FA-Vit B & C No.9 (INTEGRA PLUS) 125 mg iron- 1 mg Cap 2020-0 2-07 00:00: 00 Yes [id number] 1{capsu le} Take 1 capsule by mouth daily. [facility] docusate calcium 240 mg capsule 2020-0 2-07 00:00: 00 Yes [id number] 240mg Take 1 capsule by mouth once daily as needed for Constipati on. [facility] ibuprofen 600 mg tablet 2020-0 2-07 00:00: 00 Yes [id number] 600mg Take 1 tablet by mouth every 6 (six) hours as needed (Pain). Take with food or milk. [facility] Iron Fum & P-FA-Vit B & C No.9 (INTEGRA PLUS) 125 mg iron- 1 mg Cap 2020-0 2-07 00:00: 00 Yes [id number] 1{capsu le} Take 1 capsule by mouth daily. [facility] docusate calcium 240 mg capsule 2020-0 2-07 00:00: 00 Yes [id number] 240mg Take 1 capsule by mouth once daily as needed for Constipati on. [facility] ibuprofen 600 mg tablet 2020-0 2-07 00:00: 00 Yes [id number] 600mg Take 1 tablet by mouth every 6 (six) hours as needed (Pain). Take with food or milk. [facility] Iron Fum & P-FA-Vit B & C No.9 (INTEGRA PLUS) 125 mg iron- 1 mg Cap 2020-0 2-07 00:00: 00 Yes [id number] 1{capsu le} Take 1 capsule by mouth daily. [facility] docusate calcium 240 mg capsule 2020-0 2-07 00:00: 00 Yes [id number] 240mg Take 1 capsule by mouth once daily as needed for Constipati on. [facility] ibuprofen 600 mg tablet 2020-0 2-07 00:00: 00 Yes [id number] 600mg Take 1 tablet by mouth every 6 (six) hours as needed (Pain). Take with food or milk. [facility] Iron Fum & P-FA-Vit B & C No.9 (INTEGRA PLUS) 125 mg iron- 1 mg Cap 2020-0 2-07 00:00: 00 Yes [id number] 1{capsu le} Take 1 capsule by mouth daily. [facility] docusate calcium 240 mg capsule 2020-0 2-07 00:00: 00 Yes [id number] 240mg Take 1 capsule by mouth once daily as needed for Constipati on. [facility] ibuprofen 600 mg tablet 2020-0 2-07 00:00: 00 Yes [id number] 600mg Take 1 tablet by mouth every 6 (six) hours as needed (Pain). Take with food or milk. [facility] Iron Fum & P-FA-Vit B & C No.9 (INTEGRA PLUS) 125 mg iron- 1 mg Cap 2020-0 2-07 00:00: 00 Yes [id number] 1{capsu le} Take 1 capsule by mouth daily. [facility] docusate calcium 240 mg capsule 2020-0 2-07 00:00: 00 Yes [id number] 240mg Take 1 capsule by mouth once daily as needed for Constipati on. [facility] ibuprofen 600 mg tablet 2020-0 2-07 00:00: 00 Yes [id number] 600mg Take 1 tablet by mouth every 6 (six) hours as needed (Pain). Take with food or milk. [facility] Iron Fum & P-FA-Vit B & C No.9 (INTEGRA PLUS) 125 mg iron- 1 mg Cap 2020-0 2-07 00:00: 00 Yes [id number] 1{capsu le} Take 1 capsule by mouth daily. [facility] docusate calcium 240 mg capsule 2020-0 2-07 00:00: 00 Yes [id number] 240mg Take 1 capsule by mouth once daily as needed for Constipati on. [facility] ibuprofen 600 mg tablet 2020-0 2-07 00:00: 00 Yes [id number] 600mg Take 1 tablet by mouth every 6 (six) hours as needed (Pain). Take with food or milk. [facility] Iron Fum & P-FA-Vit B & C No.9 (INTEGRA PLUS) 125 mg iron- 1 mg Cap 2020-0 2-07 00:00: 00 Yes [id number] 1{capsu le} Take 1 capsule by mouth daily. [facility] docusate calcium 240 mg capsule 2020-0 2-07 00:00: 00 Yes [id number] 240mg Take 1 capsule by mouth once daily as needed for Constipati on. [facility] ibuprofen 600 mg tablet 2020-0 2-07 00:00: 00 Yes [id number] 600mg Take 1 tablet by mouth every 6 (six) hours as needed (Pain). Take with food or milk. [facility] Iron Fum & P-FA-Vit B & C No.9 (INTEGRA PLUS) 125 mg iron- 1 mg Cap 2020-0 2-07 00:00: 00 Yes [id number] 1{capsu le} Take 1 capsule by mouth daily. [facility] docusate calcium 240 mg capsule 2020-0 2-07 00:00: 00 Yes [id number] 240mg Take 1 capsule by mouth once daily as needed for Constipati on. [facility] ibuprofen 600 mg tablet 2020-0 2-07 00:00: 00 Yes [id number] 600mg Take 1 tablet by mouth every 6 (six) hours as needed (Pain). Take with food or milk. [facility] Iron Fum & P-FA-Vit B & C No.9 (INTEGRA PLUS) 125 mg iron- 1 mg Cap 2020-0 2-07 00:00: 00 Yes [id number] 1{capsu le} Take 1 capsule by mouth daily. [facility] docusate calcium 240 mg capsule 2019-0 2-07 00:00: 00 Yes [id number] 240mg Take 1 capsule by mouth once daily as needed for Constipati on. [facility] ibuprofen 600 mg tablet 2020-0 2-07 00:00: 00 Yes [id number] 600mg Take 1 tablet by mouth every 6 (six) hours as needed (Pain). Take with food or milk. [facility] Iron Fum & P-FA-Vit B & C No.9 (INTEGRA PLUS) 125 mg iron- 1 mg Cap 2020-0 2-07 00:00: 00 Yes [id number] 1{capsu le} Take 1 capsule by mouth daily. [facility] docusate calcium 240 mg capsule 2020-0 2-07 00:00: 00 09-25 00:00 :00 No [id number] 240mg Take 1 capsule by mouth once daily as needed for Constipati on. [facility] ibuprofen 600 mg tablet 08-12 00:00: 09-25 00:00 :00 No [id number] 600mg Take 1 tablet by mouth every 6 (six) hours as needed (Pain). Take with food or milk. [facility] Iron Fum & P-FA-Vit B & C No.9 (INTEGRA PLUS) 125 mg iron- 1 mg Cap 08-12 00:00: 09-25 00:00 :00 No [id number] 1{capsu le} Take 1 capsule by mouth daily. [facility] docusate calcium 240 mg capsule 08-12 00:00: 09-25 00:00 :00 No [id number] 240mg Take 1 capsule by mouth once daily as needed for Constipati on. [facility] ibuprofen 600 mg tablet 08-12 00:00: 09-25 00:00 :00 No [id number] 600mg Take 1 tablet by mouth every 6 (six) hours as needed (Pain). Take with food or milk. [facility] Iron Fum & P-FA-Vit B & C No.9 (INTEGRA PLUS) 125 mg iron- 1 mg Cap 08-12 00:00: 09-25 00:00 :00 No [id number] 1{capsu le} Take 1 capsule by mouth daily. [facility] amnioinfusi on IV infusion via GRAVITY 0.9 NaCL 1,000 mL 08-11 20:00: 08-11 20:06 :00 No 1000mL at 750 mL/hr, Intrauteri ne, ONCE, 1 dose, Zeina 08/11/19 at 1400, RADHA
In fuse via gravity 750 ml over 1 hour.&nbsp ; Once 750 mL has been infused, the infusion may be dicsontinu ed or decreased to 100 mL/hr until the liter is complete.& nbsp;&nbsp ;Notify Multiple Slide Operator if uterine resting tone exceeds 25 mmHg at any time during the amnioinfus ion. Obst etrics (KARINA) Aminoinfus ion Orders
[facility] lactated ringers IV infusion 500 mL 08-11 17:45: 00 08-11 16:45 :00 No 500mL at 999 mL/hr, 500 mL, IV Infusion, ONCE, 1 dose, Zeina 08/11/19 at 1145, Routine [facility] ondansetron (ZOFRAN (PF)) injection 4 mg 08-11 08:15: 00 08-11 07:12 :00 No 4mg 4 mg, Slow IV Push, ONCE, 1 dose, Zeina 08/11/19 at 0215, Routine [facility] [id number] IV infusion 1,000 mL 08-11 04:00: 00 08-12 02:46 :09 No 1000mL at 125 mL/hr, IV Infusion, CONTINUOUS , Starting Thu08/10/19 at 2200, Until Zeina 08/11/19 at 2046, Routine [facility] LR 1000 mL + oxytocin 20 units IV Solution 08-11 03:55: 08 08-12 02:46 :09 No 2mU/min 2 julio-unit s/min (6 mL/hr), at 6 mL/hr, IV Infusion, TITRATE, Starting 08/10/19 at 2155, Until Zeina 2 at 2046, RADHA, Oxytocin Induction / Augmentati on of Labor. [facility] sodium citrate-cit jaycee acid (BICITRA) 500-334 mg/5 mL solution 30 mL 08-11 03:51: 29 08-11 16:38 :00 No 30mL 30 mL, Oral, PRE-PROCED URE ONCE, 1 dose, Starting Thu08/10/19 at 2151, Until Discontinu ed, Routine, Surgery/Pr ocedure [facility] ferrous sulfate 325 mg (65 mg iron) tablet 12-10 00:00: 00 Yes [id number] 325mg Take 1 tablet by mouth 2 (two) times daily. [facility] ascorbic acid, vitamin C, 500 mg tablet 12-10 00:00: 00 Yes [id number] 500mg Take 1 tablet by mouth 3 (three) times daily. [facility] ferrous sulfate 325 mg (65 mg iron) tablet 12-10 00:00: 00 Yes [id number] 325mg Take 1 tablet by mouth 2 (two) times daily. [facility] ascorbic acid, vitamin C, 500 mg tablet 12-10 00:00: 00 Yes [id number] 500mg Take 1 tablet by mouth 3 (three) times daily. [facility] ferrous sulfate 325 mg (65 mg iron) tablet 12-10 00:00: 00 Yes [id number] 325mg Take 1 tablet by mouth 2 (two) times daily. [facility] ascorbic acid, vitamin C, 500 mg tablet 12-10 00:00: 00 Yes [id number] 500mg Take 1 tablet by mouth 3 (three) times daily. [facility] ferrous sulfate 325 mg (65 mg iron) tablet 12-10 00:00: 00 Yes [id number] 325mg Take 1 tablet by mouth 2 (two) times daily. [facility] ascorbic acid, vitamin C, 500 mg tablet 12-10 00:00: 00 Yes [id number] 500mg Take 1 tablet by mouth 3 (three) times daily. [facility] ferrous sulfate 325 mg (65 mg iron) tablet 12-10 00:00: 00 Yes [id number] 325mg Take 1 tablet by mouth 2 (two) times daily. [facility] ascorbic acid, vitamin C, 500 mg tablet 12-10 00:00: 00 Yes [id number] 500mg Take 1 tablet by mouth 3 (three) times daily. [facility] ferrous sulfate 325 mg (65 mg iron) tablet 12-10 00:00: 00 Yes [id number] 325mg Take 1 tablet by mouth 2 (two) times daily. [facility] ascorbic acid, vitamin C, 500 mg tablet 12-10 00:00: 00 Yes [id number] 500mg Take 1 tablet by mouth 3 (three) times daily. [facility] ferrous sulfate 325 mg (65 mg iron) tablet 12-10 00:00: 00 Yes [id number] 325mg Take 1 tablet by mouth 2 (two) times daily. [facility] ascorbic acid, vitamin C, 500 mg tablet 12-10 00:00: 00 Yes [id number] 500mg Take 1 tablet by mouth 3 (three) times daily. [facility] ferrous sulfate 325 mg (65 mg iron) tablet 12-10 00:00: 00 Yes [id number] 325mg Take 1 tablet by mouth 2 (two) times daily. [facility] ascorbic acid, vitamin C, 500 mg tablet 12-10 00:00: 00 Yes [id number] 500mg Take 1 tablet by mouth 3 (three) times daily. [facility] ferrous sulfate 325 mg (65 mg iron) tablet 12-10 00:00: 00 Yes [id number] 325mg Take 1 tablet by mouth 2 (two) times daily. [facility] ascorbic acid, vitamin C, 500 mg tablet 12-10 00:00: 00 Yes [id number] 500mg Take 1 tablet by mouth 3 (three) times daily. [facility] ferrous sulfate 325 mg (65 mg iron) tablet 12-10 00:00: 00 Yes [id number] 325mg Take 1 tablet by mouth 2 (two) times daily. [facility] ascorbic acid, vitamin C, 500 mg tablet 12-10 00:00: 00 Yes [id number] 500mg Take 1 tablet by mouth 3 (three) times daily. [facility] ferrous sulfate 325 mg (65 mg iron) tablet 12-10 00:00: 00 Yes [id number] 325mg Take 1 tablet by mouth 2 (two) times daily. [facility] ascorbic acid, vitamin C, 500 mg tablet 12-10 00:00: 00 Yes [id number] 500mg Take 1 tablet by mouth 3 (three) times daily. [facility] ferrous sulfate 325 mg (65 mg iron) tablet 12-10 00:00: 00 08-12 00:00 :00 No [id number] 325mg Take 1 tablet by mouth 2 (two) times daily. [facility] ascorbic acid, vitamin C, 500 mg tablet 2017-12-10 00:00: 00 08-12 00:00 :00 No [id number] 500mg Take 1 tablet by mouth 3 (three) times daily. [facility] doxylamine- pyridoxine, vit B6, (DICLEGIS) 10-10 mg per tablet 2016-07 00:00: 00 Yes [id number] 2{tbl} Take 2 tablets by mouth at bedtime. [facility] doxylamine- pyridoxine, vit B6, (DICLEGIS) 10-10 mg per tablet 2016-07 00:00: 00 Yes [id number] 2{tbl} Take 2 tablets by mouth at bedtime. [facility] doxylamine- pyridoxine, vit B6, (DICLEGIS) 10-10 mg per tablet 2016-07 00:00: 00 Yes [id number] 2{tbl} Take 2 tablets by mouth at bedtime. [facility] doxylamine- pyridoxine, vit B6, (DICLEGIS) 10-10 mg per tablet 2016-07 00:00: 00 Yes [id number] 2{tbl} Take 2 tablets by mouth at bedtime. [facility] doxylamine- pyridoxine, vit B6, (DICLEGIS) 10-10 mg per tablet 2016-07 00:00: 00 Yes [id number] 2{tbl} Take 2 tablets by mouth at bedtime. [facility] doxylamine- pyridoxine, vit B6, (DICLEGIS) 10-10 mg per tablet 2016-07 00:00: 00 Yes [id number] 2{tbl} Take 2 tablets by mouth at bedtime. [facility] doxylamine- pyridoxine, vit B6, (DICLEGIS) 10-10 mg per tablet 2016-07 00:00: 00 Yes [id number] 2{tbl} Take 2 tablets by mouth at bedtime. [facility] doxylamine- pyridoxine, vit B6, (DICLEGIS) 10-10 mg per tablet 2016-07 00:00: 00 Yes [id number] 2{tbl} Take 2 tablets by mouth at bedtime. [facility] doxylamine- pyridoxine, vit B6, (DICLEGIS) 10-10 mg per tablet 2016-07 00:00: 00 Yes [id number] 2{tbl} Take 2 tablets by mouth at bedtime. [facility] doxylamine- pyridoxine, vit B6, (DICLEGIS) 10-10 mg per tablet 2016-07 00:00: 00 Yes [id number] 2{tbl} Take 2 tablets by mouth at bedtime. [facility] doxylamine- pyridoxine, vit B6, (DICLEGIS) 10-10 mg per tablet 2016-07 00:00: 00 Yes [id number] 2{tbl} Take 2 tablets by mouth at bedtime. [facility] doxylamine- pyridoxine, vit B6, (DICLEGIS) 10-10 mg per tablet 2016-07 00:00: 00 08-12 00:00 :00 No [id number] 2{tbl} Take 2 tablets by mouth at bedtime. [facility] PNV 67-iron ps-folate no.1-dha (VITAFOL ULTRA) 29 mg iron- 1 mg-200 mg Cap 2016-07 00:00: 00 Yes [id number] 1{each} Take 1 Each by mouth daily. [facility] PNV 67-iron ps-folate no.1-dha (VITAFOL ULTRA) 29 mg iron- 1 mg-200 mg Cap 2016-07 00:00: 00 Yes [id number] 1{each} Take 1 Each by mouth daily. [facility] PNV 67-iron ps-folate no.1-dha (VITAFOL ULTRA) 29 mg iron- 1 mg-200 mg Cap 2016-07 00:00: 00 Yes [id number] 1{each} Take 1 Each by mouth daily. [facility] PNV 67-iron ps-folate no.1-dha (VITAFOL ULTRA) 29 mg iron- 1 mg-200 mg Cap 2016-07 00:00: 00 Yes [id number] 1{each} Take 1 Each by mouth daily. [facility] PNV 67-iron ps-folate no.1-dha (VITAFOL ULTRA) 29 mg iron- 1 mg-200 mg Cap 2016-07 00:00: 00 Yes [id number] 1{each} Take 1 Each by mouth daily. [facility] PNV 67-iron ps-folate no.1-dha (VITAFOL ULTRA) 29 mg iron- 1 mg-200 mg Cap 2016-07 00:00: 00 Yes [id number] 1{each} Take 1 Each by mouth daily. [facility] PNV 67-iron ps-folate no.1-dha (VITAFOL ULTRA) 29 mg iron- 1 mg-200 mg Cap 2016-07 00:00: 00 Yes [id number] 1{each} Take 1 Each by mouth daily. [facility] PNV 67-iron ps-folate no.1-dha (VITAFOL ULTRA) 29 mg iron- 1 mg-200 mg Cap 2016-07 00:00: 00 Yes [id number] 1{each} Take 1 Each by mouth daily. [facility] PNV 67-iron ps-folate no.1-dha (VITAFOL ULTRA) 29 mg iron- 1 mg-200 mg Cap 2016-07 00:00: 00 Yes [id number] 1{each} Take 1 Each by mouth daily. [facility] PNV 67-iron ps-folate no.1-dha (VITAFOL ULTRA) 29 mg iron- 1 mg-200 mg Cap 2016-07 00:00: 00 Yes [id number] 1{each} Take 1 Each by mouth daily. [facility] PNV 67-iron ps-folate no.1-dha (VITAFOL ULTRA) 29 mg iron- 1 mg-200 mg Cap 2016-07 00:00: 00 Yes [id number] 1{each} Take 1 Each by mouth daily. [facility] PNV 67-iron ps-folate no.1-dha (VITAFOL ULTRA) 29 mg iron- 1 mg-200 mg Cap 2016-07 00:00: 00 08-12 00:00 :00 No [id number] 1{each} Take 1 Each by mouth daily. [facility] Vital Signs Vital Name Observation Time Observation Value Comments S ourtamir Systolic blood pressure 2022-10-06 13:30:00 113 mm[Hg] [facility] Diastolic blood pressure 2022-10-06 13:30:00 73 mm[Hg] [facility] Heart rate 2022-10-06 13:30:00 77 /min [facility] Body temperature 2022-10-06 13:30:00 36.17 [facility] Respiratory rate 2022-10-06 13:30:00 18 /min [facility] Body height 2022-10-06 13:30:00 162.6 cm [facility] Body weight 2022-10-06 13:30:00 106.051 kg [facility] BMI 2022-10-06 13:30:00 40.13 kg/m2 [facility] Systolic blood pressure 2022-09-25 18:35:00 125 mm[Hg] [facility] Diastolic blood pressure 2022-09-25 18:35:00 84 mm[Hg] [facility] Heart rate 2022-09-25 18:35:00 110 /min [facility] Body temperature 2022-09-25 18:35:00 36.78 Isa [facility] Respiratory rate 2022-09-25 18:35:00 20 /min [facility] Body height 2022-09-25 18:35:00 162.6 cm [facility] Body weight 2022-09-25 18:35:00 103.964 kg [facility] BMI 2022-09-25 18:35:00 39.34 kg/m2 [facility] Systolic blood pressure 2020-02-20 18:45:00 109 mm[Hg] [facility] Diastolic blood pressure 2020-02-20 18:45:00 73 mm[Hg] [facility] Heart rate 2020-02-20 18:45:00 77 /min [facility] Body temperature 2020-02-20 18:45:00 36.89 Isa [facility] Respiratory rate 2020-02-20 18:45:00 16 /min [facility] Body height 2020-02-20 18:45:00 162.6 cm [facility] Body weight 2020-02-20 18:45:00 91.768 kg [facility] BMI 2020-02-20 18:45:00 34.73 kg/m2 [facility] Systolic blood pressure 2019-09-23 20:15:00 125 mm[Hg] [facility] Diastolic blood pressure 2019-09-23 20:15:00 77 mm[Hg] [facility] Heart rate 2019-09-23 20:15:00 78 /min [facility] Body temperature 2019-09-23 20:15:00 37.11 Isa [facility] Respiratory rate 2019-09-23 20:15:00 16 /min [facility] Body height 2019-09-23 20:15:00 162.6 cm [facility] Body weight 2019-09-23 20:15:00 85.475 kg [facility] BMI 2019-09-23 20:15:00 32.35 kg/m2 [facility] Systolic blood pressure 2019-09-01 16:15:00 114 mm[Hg] [place] [facility] Diastolic blood pressure 2019-09-01 16:15:00 68 mm[Hg] [facility] Heart rate 2019-09-01 16:15:00 74 /min [facility] Body temperature 2019-09-01 16:15:00 36.72 Isa [facility] Respiratory rate 2019-09-01 16:15:00 16 /min [facility] Body height 2019-09-01 16:15:00 162.6 cm [facility] Body weight 2019-09-01 16:15:00 85.333 kg [facility] BMI 2019-09-01 16:15:00 32.29 kg/m2 [facility] Systolic blood pressure 2019-08-18 21:56:00 124 mm[Hg] [facility] Diastolic blood pressure 2019-08-18 21:56:00 80 mm[Hg] [facility] Heart rate 2019-08-18 21:56:00 92 /min [facility] Body temperature 2019-08-18 21:56:00 37.22 Isa [facility] Respiratory rate 2019-08-18 21:56:00 16 /min [facility] Body height 2019-08-18 21:56:00 160 cm [facility] Body weight 2019-08-18 21:56:00 86.592 kg [facility] BMI 2019-08-18 21:56:00 33.82 kg/m2 [facility] Systolic blood pressure 2019-08-13 14:00:00 119 mm[Hg] [facility] Diastolic blood pressure 2019-08-13 14:00:00 76 mm[Hg] [facility] Heart rate 2019-08-13 14:00:00 74 /min [facility] Body temperature 2019-08-13 14:00:00 37 Isa [facility] Respiratory rate 2019-08-13 14:00:00 18 /min [facility] Oxygen saturation in Arterial blood by Pulse oximetry 2019-08-13 14:00:00 99 /min [facility] Body height 2019-08-11 02:00:00 162 cm [facility] Body weight 2019-08-11 02:00:00 94.348 kg [facility] BMI 2019-08-11 02:00:00 35.95 kg/m2 [facility] Systolic blood pressure 2019-08-03 19:39:00 116 mm[Hg] [facility] Diastolic blood pressure 2019-08-03 19:39:00 75 mm[Hg] [facility] Heart rate 2019-08-03 19:39:00 116 /min [facility] Body temperature 2019-08-03 19:39:00 37 Isa [facility] Respiratory rate 2019-08-03 19:39:00 16 /min [facility] Body height 2019-08-03 19:39:00 165.1 cm [facility] Body weight 2019-08-03 19:39:00 95.369 kg [facility] BMI 2019-08-03 19:39:00 34.99 kg/m2 [facility] Systolic blood pressure 2019-07-26 21:14:00 134 mm[Hg] [facility] Diastolic blood pressure 2019-07-26 21:14:00 87 mm[Hg] [facility] Heart rate 2019-07-26 21:14:00 92 /min [facility] Body temperature 2019-07-26 21:14:00 37.72 Isa [facility] Respiratory rate 2019-07-26 21:14:00 16 /min [facility] Body height 2019-07-26 21:14:00 165.1 cm [facility] Body weight 2019-07-26 21:14:00 96.389 kg [facility] BMI 2019-07-26 21:14:00 35.36 kg/m2 [facility] Systolic blood pressure 2019-03-22 19:25:00 113 mm[Hg] [facility] Diastolic blood pressure 2019-03-22 19:25:00 72 mm[Hg] [facility] Heart rate 2019-03-22 19:25:00 93 /min [facility] Body temperature 2019-03-22 19:25:00 36.94 Isa [facility] Respiratory rate 2019-03-22 19:25:00 16 /min [facility] Body height 2019-03-22 19:25:00 160 cm [facility] Body weight 2019-03-22 19:25:00 93.441 kg [facility] BMI 2019-03-22 19:25:00 36.49 kg/m2 [facility] Systolic blood pressure 2019-02-21 19:44:00 134 mm[Hg] [facility] Diastolic blood pressure 2019-02-21 19:44:00 77 mm[Hg] [facility] Heart rate 2019-02-21 19:44:00 101 /min [facility] Body temperature 2019-02-21 19:44:00 37 Isa [facility] Respiratory rate 2019-02-21 19:44:00 16 /min [facility] Body height 2019-02-21 19:44:00 160 cm [facility] Body weight 2019-02-21 19:44:00 94.121 kg [facility] BMI 2019-02-21 19:44:00 36.76 kg/m2 [facility] Procedures Procedure Date / Time Performed Performing Clinician Source DISCLOSURE AND CONSENT, MEDICAL AND SURGICAL PROCEDURES 2022-10-06 05:01:00 Doctor Unassigned, [place] [facility] GARDASIL 9 (HPV 9V) VACCINE 2022-09-25 18:54:20 Theresa Lord [facility] ASSIGNMENT OF BENEFITS 2022-09-25 18:15:42 Jose Cruz florence Unassigned, [place] [facility] GARDASIL 9 (HPV 9V) VACCINE 2020-02-20 19:16:37 Theresa Lord [facility] ASSIGNMENT OF BENEFITS 2020-02-20 18:38:40 Docsang r Unassigned, [place] [facility] GARDASIL 9 (HPV 9V) VACCINE 2019-09-23 21:08:55 Theresa Lord [facility] POCT TEST 2019-09-23 20:16:00 Jeet Lord [facility] CONSENT FOR CONTRACEPTION 2019-09-23 05:01:00 Doctor Unassigned, [place] [facility] CBC WITH DIFFERENTIAL 2019-08-12 09:42:00 Tian Alberto [facility] VENOUS CORD GAS 2019-08-11 23:27:00 Artem Carranza [facility] URINALYSIS 2019-08-11 12:19:00 [place] [facility] PROTEIN CREAT RATIO URINE RANDOM 2019-08-11 12:19:00 [place] [facility] LACTATE DEHYDROGENASE 2019-08-11 07:31:00 [facility] CBC WITH DIFFERENTIAL 2019-08-11 07:31:00 [place] [facility] SGOT (ASPARTATE AMINO TRANSFER) 2019-08-11 04:05:00 Sergio Pauly [facility] CREATININE 2019-08-11 04:05:00 [place] [facility] ALANINE AMINO TRANSFERASE(SGPT 2019-08-11 04:05:00 [place] [facility] URIC ACID 2019-08-11 04:05:00 [place] [facility] HEPATITIS B SURFACE ANTIGEN 2019-08-11 04:05:00 Pedro Carranza [facility] GALV ONLY - SYPHILIS IGG/IGM 2019-08-11 04:05:00 Pedro Carranza [facility] HB ABO GROUPING 2019-08-11 04:04:00 Artem Carranza [facility] RHO (D) IMMUNE GLOBULIN 2019-08-11 04:04:00 Nell Alberto [facility] POCT URINALYSIS 2019-08-03 19:42:00 Theresa Lord [facility] POCT URINALYSIS 2019-07-26 21:46:00 Theresa Lord [facility] POCT URINALYSIS 2019-03-22 19:31:00 Theresa Lord [facility] POCT URINALYSIS 2019-02-21 19:44:00 Theresa Lord [facility] Encounters Start Date/Time End Date/Time Encounter Type Admission Type Attending [facility] Care Facility Care Department Encounter ID Source 2023-05-02 00:00:00 2023-05-02 00:00:00 Outpatient [id number] [facility] [id number] [facility] 2022-10-06 08:30:00 2022-10-06 08:59:30 Outpatient [facility] [id number] [facility] 2022-10-06 08:30:00 2022-10-06 08:59:30 Office Visit Josie Torres [facility] DIE [facility] 1.0.114 350.1.13.10 4.2.7.2.686 [id number] [facility] 2022-10-06 00:00:00 2022-10-06 00:00:00 Orders Only Doctor Unassigned, [place] [facility] 1.2840.114 350.1.13.10 4.2.7.2.686 [id number] [id number] [facility] 2022-09-25 13:15:00 2022-09-25 14:35:28 Outpatient R [facility] [id number] [facility] 2022-09-25 13:15:00 2022-09-25 14:35:28 Office Visit Theresa Lord [facility] DIE [facility] 1.840.114 350.1.13.10 4.2.7.2.686 [id number] [facility] 2022-09-25 00:00:00 2022-09-25 00:00:00 Orders Only Doctor Unassigned, [place] [facility] 1.2.114 350.1.13.10 4.2.7.2.686 [id number] [id number] [facility] 2020-05-23 14:00:00 2020-05-23 14:00:00 Outpatient R [facility] [id number] [facility] 2020-02-20 13:40:12 2020-02-20 14:05:43 Nurse Visit Visit, Ang-Rmchp Nurse Theresa Lord [facility] DIE [facility]ILD [facility] 1..114 350.1.13.10 4.2.7.2.686 [id number] [facility] 2020-02-20 13:30:00 2020-02-20 13:30:00 Outpatient R [facility] [id number] [facility] 2020-02-20 00:00:00 2020-02-20 00:00:00 Orders Only Doctor Unassigned, [place] [facility] 1..114 350.1.13.10 4.2.7.2.686 [id number] [id number] [facility] 2019-11-23 13:00:00 2019-11-23 13:00:00 Outpatient R [facility] [id number] [facility] 2019-11-09 14:15:00 2019-11-09 14:15:00 Outpatient R [facility] [id number] [facility] 2019-11-09 12:42:08 2019-11-09 12:57:08 Telemedici ne Visit Theresa Lord [facility] DIE [facility] 1..114 350.1.13.10 4.2.7.2.686 [id number] [facility] 2019-10-07 13:30:00 2019-10-07 13:30:00 Outpatient R [facility] [id number] [facility] 2019-10-06 08:45:00 2019-10-06 08:45:00 Outpatient R [facility] [id number] [facility] 2019-10-06 00:00:00 2019-10-06 00:00:00 Telephone Theresa Lord [facility] DIE [facility]ILD [facility] 1..114 350.1.13.10 4.2.7.2.686 [id number] [facility] 2019-09-23 15:04:55 2019-09-23 16:09:38 Office Visit Theresa Lord [facility] DIE [facility]ILD [facility] 1.840.114 350.1.13.10 4.2.7.2.686 [id number] [facility] 2019-09-23 15:00:00 2019-09-23 15:00:00 Outpatient R [facility] [id number] [facility] 2019-09-23 00:00:00 2019-09-23 00:00:00 Orders Only Doctor Unassigned, [place] [facility] 1.2.840.114 350.1.13.10 4.2.7.2.686 [id number] [facility] 2019-09-01 10:02:22 2019-09-01 10:17:22 Routine Visit Theresa Lord [facility] DIE [facility]ILD [facility] 1.2840.114 350.1.13.10 4.2.7.2.686 [id number] [facility] 2019-09-01 09:30:00 2019-09-01 09:30:00 Outpatient R [facility] [id number] [facility] 2019-08-18 09:28:08 2019-08-18 09:52:41 Nurse Visit Visit, Ang-Rmchp Nurse Theresa Lord [facility] 1.2840.114 350.1.13.10 4.2.7.2.686 [id number] [facility] 2019-08-10 18:34:00 2019-08-13 14:36:00 Hospital Encounter Sabrina Vickers [facility] 1.2840.114 350.1.13.10 4.2.7.2.686 [id number] [facility] 2019-08-03 13:13:09 2019-08-03 13:53:30 Routine Visit Theresa Lord [facility] DIE [facility]ILD [facility] 1.2840.114 350.1.13.10 4.2.7.2.686 [id number] [facility] 2019-07-26 14:51:29 2019-07-26 15:37:05 Routine Visit Theresa Lord [facility] DIE [facility] 1.2.840.114 350.1.13.10 4.2.7.2.686 [id number] [facility] 2019-03-22 14:01:38 2019-03-22 14:51:32 Routine Visit Theresa Lord Emily N [facility] DIE [facility] 1.2.840.114 350.1.13.10 4.2.7.2.686 [id number] [facility] 2019-03-22 00:00:00 2019-03-22 00:00:00 Telephone Theresa Lord [facility] DIE [facility]ILD [facility] 1.2.840.114 350.1.13.10 4.2.7.2.686 [id number] [facility] 2019-02-23 11:21:38 2019-02-23 11:46:18 Aids Social Worker Visit Ultrasound, Sabrina Prabhakar [facility] DIE [facility] 1.2.840.114 350.1.13.10 4.2.7.2.686 [id number] [facility] 2019-02-23 00:00:00 2019-02-23 00:00:00 Abstract Radha Arboleda [facility]IE [facility] 1.2.840.114 350.1.13.10 4.2.7.2.686 [id number] [facility] 2019-02-21 14:37:15 2019-02-21 15:06:20 Routine Visit Radha Arboleda [facility] DIE [facility] 1.2.840.114 350.1.13.10 4.2.7.2.686 [id number] [facility] Results Test Description Test Time Test Comments Results Result Co mments Source [facility] [id number] 20:17:00* Test Item Value Reference Range Interpretation Comme nts POCT PREG (test code = 1605) Negative On board controls acceptable with C Line (test code = 3574) Yes POCT PREG LOT # (test code = 3575) POCT PREG TEST DATE ( test code = 3576) [facility] SYPHILIS [id number] 14:54:00* Test Item Value Reference Range Interpretation Comme nts Syphilis IgG/IgM (test code = 01487-7) Non-reactive Non-reactive FARHAD (test code = FARHAD) Non-reactive - No serologic evidence of T. pallidum infection. Cannot exclude incubating or early syphilis. Submit a second specimen in 2-4 weeks if syphilis is clinically suspected. Equivocal - Further testing to follow. Reactive - Further testing to follow. Lab Interpretation (test code = 34960-5) Normal [facility] WITH [id number] 10:19:00* Test Item Value Reference Range Interpretation Comme nts WBC (test code = 6690-2) See_Comment H [Automated message] The system which generated this result transmitted reference range: 4.30 - 11.10 10*3/?L. The reference range was not used to interpret this result as normal/abnormal. RBC (test code = 789-8) See_Comment [Automated message] The system which generated this result transmitted reference range: 3.93 - 5.25 10*6/?L. The reference range was not used to interpret this result as normal/abnormal. HGB (test code = 718-7) 10.3 g/dL 11.6-15 L HCT (test code = 4544-3) 35.5 % 35.7-45.2 L MCV (test code = 787-2) 74.0 fL 80.6-95.5 L MCH (test code = 785-6) 21.5 pg 25.9-32.8 L MCHC (test code = 786-4) 29.0 g/dL 31.6-35.1 L RDW-SD (test code = 95436-5) 44.3 fL 39-49.9 RDW-CV (test code = 788-0) 16.9 % 12-15.5 H PLT (test code = 777-3) See_Comment [Automated message] The system which generated this result transmitted reference range: 166 - 358 10*3/?L. The reference range was not used to interpret this result as normal/abnormal. MPV (test code = 97737-6) 12.1 fL 9.5-12.9 NRBC/100 WBC (test code = 1322668429) See_Comment [Automated message] The system which generated this result transmitted reference range: 0.0 - 10.0 /100 WBCs. The reference range was not used to interpret this result as normal/abnormal. NRBC x10^3 (test code = 6906871545) <0.01 See_Comment [Automated message] The system which generated this result transmitted reference range: 10*3/?L. The reference range was not used to interpret this result as normal/abnormal. GRAN MAT (NEUT) % (test code = 770-8) 70.9 % IMM GRAN % (test code = 7630358069) 0.50 % LYMPH % (test code = 736-9) 21.0 % MONO % (test code = 5905-5) 7.2 % EOS % (test code = 713-8) 0.2 % BASO % (test code = 706-2) 0.2 % GRAN MAT x10^3(ANC) (test code = 2406015585) 10.09 10*3/uL 1.88-7.09 H IMM GRAN x10^3 (test code = 6164622034) 0.07 10*3/uL 0-0.06 H LYMPH x10^3 (test code = 731-0) 2.98 10*3/uL 1.32-3.29 MONO x10^3 (test code = 742-7) 1.02 10*3/uL 0.33-0.92 H EOS x10^3 (test code = 711-2) 0.03 10*3/uL 0.03-0.39 BASO x10^3 (test code = 704-7) 0.03 10*3/uL 0.01-0.07 Lab Interpretation (test code = 72591-3) [facility]normal [facility] IMMUNE [id number] 02:49:21* Test Item Value Reference Range Interpretation Comme nts RHIG CANDIDATE? (test code = 5055) No- see comment Patient is not a candidate for RhIg- Patient is Rh Positive.Performed at [facility] Laboratory Services - [facility] Blood [address] [place] [id number] Free: [phone] No. [id number] [facility] CenterVENOUS CORD [id number] 23:39:00* Test Item Value Reference Range Interpretation Comme nts VENOUS BASE EXCESS, CORD (test code = 7289856086) mEq/L VENOUS PH, CORD (test code = 4983564590) 7.25-7.45 VENOUS PC02, CORD (test code = 9618792594) See_Comment [Automated messa ge] The system which generated this result transmitted reference range: 27 - 49 mmHg. The reference range was not used to interpret this result as normal/abnormal. VENOUS PO2, CORD (test code = 6172428530) See_Comment [Automated me ssage] The system which generated this result transmitted reference range: 17 - 41 mmHg. The reference range was not used to interpret this result as normal/abnormal. VENOUS BICARBONATE, CORD (test code = 0004985994) See_Comment [Automated messa ge] The system which generated this result transmitted reference range: 12 - 29 mEq/L. The reference range was not used to interpret this result as normal/abnormal. [facility]AR[facility] CORD [id number] 23:39:00* Test Item Value Reference Range Interpretation Comme nts BASE EXCESS, CORD (test code = 1024308239) mEq/L AC PH, CORD (BEAKER) (test code = 4305963319) 7.18-7.38 PC02, CORD (test code = 6994793617) See_Comment [Automated messa ge] The system which generated this result transmitted reference range: 32 - 66 mmHg. The reference range was not used to interpret this result as normal/abnormal. PO2, CORD (test code = 6060017767) See_Comment [Automated messa ge] The system which generated this result transmitted reference range: 10 - 30 mmHg. The reference range was not used to interpret this result as normal/abnormal. BICARBONATE, CORD (test code = 9931959004) See_Comment [Automated [employer]] The system which generated this result transmitted reference range: 17 - 27 mEq/L. The reference range was not used to interpret this result as normal/abnormal. [facility] CREAT Ratio Urine [id number] 13:03:00* Test Item Value Reference Range Interpretation Comme nts T. PROT U (test code = 2888-6) 12 mg/dL CREAT U (test code = 2549905058) 215.7 mg/dL Protein/Creatinine Ratio Uri ne (test code = 1923472326) 0.0-2.0 [facility] CenterUrinalysis2020-02-06 12:45:00* Test Item Value Reference Range Interpretation Comme nts APPEARANCE (test code = 1939649051) Hazy Clear A COLOR (test code = 9998373599) Yellow Yellow PH (test code = 2787106569) 4.8-8.0 SP GRAVITY (test code = 3771166815) 1.003-1.030 GLU U QUAL (test code = 8635966345) Normal Normal BLOOD (test code = 0363003708) Negative Negative INTERFERENCE FRO M ASCORBIC ACID MAY CAUSE FALSE NEGATIVE RESULT KETONES (test code = 2090887855) 5 mg/dL Negative A PROTEIN (test code = 2887-8) 30 mg/dL Negative A UROBILIN (test code = 9587052043) 4.0 mg/dL Normal A BILIRUBIN (test code = 1160938211) Negative Negative NITRITE (test code = 5862918839) Negative Negative LEUK REFUGIO (test code = 9188527049) 25/uL Negative A RBC/HPF (test code = 7375198910) See_Comment [Automated [employer]] The system which generated this result transmitted reference range: 0 - 3 HPF. The reference range was not used to interpret this result as normal/abnormal. WBC/HPF (test code = 7635956573) See_Comment H [Automated [employer]] The system which generated this result transmitted reference range: 0 - 5 HPF. The reference range was not used to interpret this result as normal/abnormal. BACTERIA (test code = 2369147342) Moderate Negative A MUCOUS (test code = 3855945069) Marked Negative LPF A SQ EPITH (test code = 8125322522) See_Comment H [Automated messa ge] The system which generated this result transmitted reference range: <=2 HPF. The reference range was not used to interpret this result as normal/abnormal. Lab Interpretation (test code = 82339-1) Abnormal [facility] CenterHepatitis B Surface [id number] 09:09:00 * Test Item Value Reference Range Interpretation Comme nts HBsAg Semi-Quantitative (darryl t code = 5195-3) Negative Negative [facility] CenterLactate [id number] 08:41:00* Test Item Value Reference Range Interpretation Comme nts LDH (test code = 3520151494) 433 U/L 300-600 Lab Interpretation (test cod e = 88414-9) Normal [facility] CenterU[facility] Acid [id number] 08:11:00* Test Item Value Reference Range Interpretation Comme [facility] URIC ACID (test code = 9259836446) 4.1 mg/dL 2.9-6 Lab Interpretation (test cod e = 17789-4) Normal [facility] [id number] 08:11:00* Test Item Value Reference Range Interpretation Comme [facility] CREATININE (test code = 6073313078) 0.50 mg/dL 0.5-1.04 eGFR Calculation (Non-) (test code = 5217376382) mL/min/1.73m2 eGFR Calculation () (test code = 6155469579) mL/min/1.73m2 FARHAD (test code = FARHAD) Association of [...] or urine or abnormalities in imaging tests). [facility] CenterSGOT (Asparate Amino Transfer)2019-08-11 08:11:00* Test Item Value Reference Range Interpretation Comme nts AST(SGOT) (test code = 0415910463) 22 U/L 13-40 Lab Interpretation (test cod e = 66949-1) [facility]2019-08-11 08:11:00* Test Item Value Reference Range Interpretation Comme nts ALTv (test code = 1742-6) 10 U/L 5-35 Lab Interpretation (test cod e = 59236-1) Normal [facility] WITH [id number] 07:44:00* Test Item Value Reference Range Interpretation Comme nts WBC (test code = 6690-2) See_Comment [Automated [employer]] The system which generated this result transmitted reference range: 4.30 - 11.10 10*3/?L. The reference range was not used to interpret this result as normal/abnormal. RBC (test code = 789-8) See_Comment [Automated [employer]] The system which generated this result transmitted reference range: 3.93 - 5.25 10*6/?L. The reference range was not used to interpret this result as normal/abnormal. HGB (test code = 718-7) 10.8 g/dL 11.6-15 L HCT (test code = 4544-3) 36.6 % 35.7-45.2 MCV (test code = 787-2) 73.3 fL 80.6-95.5 L MCH (test code = 785-6) 21.6 pg 25.9-32.8 L MCHC (test code = 786-4) 29.5 g/dL 31.6-35.1 L RDW-SD (test code = 74309-0) 43.4 fL 39-49.9 RDW-CV (test code = 788-0) 17.0 % 12-15.5 H PLT (test code = 777-3) See_Comment [Automated messa ge] The system which generated this result transmitted reference range: 166 - 358 10*3/?L. The reference range was not used to interpret this result as normal/abnormal. MPV (test code = 19015-1) 11.5 fL 9.5-12.9 NRBC/100 WBC (test code = 6643518216) See_Comment [Automated [employer] ssage] The system which generated this result transmitted reference range: 0.0 - 10.0 /100 WBCs. The reference range was not used to interpret this result as normal/abnormal. NRBC x10^3 (test code = 5286186110) <0.01 See_Comment [Automated messa ge] The system which generated this result transmitted reference range: 10*3/?L. The reference range was not used to interpret this result as normal/abnormal. GRAN MAT (NEUT) % (test code = 770-8) 50.4 % IMM GRAN % (test code = 7317492924) 0.30 % LYMPH % (test code = 736-9) 39.9 % MONO % (test code = 5905-5) 8.3 % EOS % (test code = 713-8) 0.8 % BASO % (test code = 706-2) 0.3 % GRAN MAT x10^3(ANC) (test code = 0563779312) 3.84 10*3/uL 1.88-7.09 IMM GRAN x10^3 (test code = 7651232086) <0.03 0-0.06 LYMPH x10^3 (test code = 731-0) 3.04 10*3/uL 1.32-3.29 MONO x10^3 (test code = 742-7) 0.63 10*3/uL 0.33-0.92 EOS x10^3 (test code = 711-2) 0.06 10*3/uL 0.03-0.39 BASO x10^3 (test code = 704-7) <0.03 0.01-0.07 Lab Interpretation (test code = 18193-5) [facility] - ONCE [id number] 04:44:04 * Test Item Value Reference Range Interpretation Comme nts ABO & RH (test code = 20) O POSITIVE Performed at [facility] Laboratory Services - [facility] Blood [address] Free: [phone] No. [id number] IAT (test code = 1185) Negative Performed at [facility] Laboratory Services [facility] Blood [address] Free: [phone] No. [id number] [facility]CIFIC [id number] 19:42:00* Test Item Value Reference Range Interpretation Comme nts POCT U SP GRAV (test code = 3255) . 1.005-1.025 POCT PH U (test code = 3254) . 5-8 POCT U LEUK EST (test code = 3263) . Negative - N egative POCT U NIT (test code = 3262) . Negative - Negati ve POCT U PROT (test code = 3259) 1+ Negative - Negat margie POCT U GLU (test code = 3256) Neg Negative - Negati ve POCT U KETONE (test code = 3258) . Negative - Neg ative POCT U UROBILI (test code = 3260) . 0.2-1 POCT U BILI (test code = 3261) . Negative - Negat margie POCT U BLD (test code = 3257) . Negative - Negati ve POCT U COLOR (test code = 3266) POCT U APPEAR (test code = 3267) [facility] [id number] 19:42:00* Test Item Value Reference Range Interpretation Comme nts POCT U SP GRAV (test code = 3255) . 1.005-1.025 POCT PH U (test code = 3254) . 5-8 POCT U LEUK EST (test code = 3263) . Negative - N egative POCT U NIT (test code = 3262) . Negative - Negati ve POCT U PROT (test code = 3259) 1+ Negative - Negat margie POCT U GLU (test code = 3256) Neg Negative - Negati ve POCT U KETONE (test code = 3258) . Negative - Neg ative POCT U UROBILI (test code = 3260) . 0.2-1 POCT U BILI (test code = 3261) . Negative - Negat margie POCT U BLD (test code = 3257) . Negative - Negati ve POCT U COLOR (test code = 3266) POCT U APPEAR (test code = 3267) [facility] URINALYSIS W SPECIFIC [id number] 21:46:00* Test Item Value Reference Range Interpretation Comme nts POCT U SP GRAV (test code = 3255) . 1.005-1.025 POCT PH U (test code = 3254) . 5-8 POCT U LEUK EST (test code = 3263) . Negative - N egative POCT U NIT (test code = 3262) . Negative - Negati ve POCT U PROT (test code = 3259) Trace Negative - Negat margie POCT U GLU (test code = 3256) Neg Negative - Negati ve POCT U KETONE (test code = 3258) . Negative - Neg ative POCT U UROBILI (test code = 3260) . 0.2-1 POCT U BILI (test code = 3261) . Negative - Negat margie POCT U BLD (test code = 3257) . Negative - Negati ve POCT U COLOR (test code = 3266) POCT U APPEAR (test code = 3267) [facility] URINALYSIS W SPECIFIC [id number] 19:31:00* Test Item Value Reference Range Interpretation Comme nts POCT U SP GRAV (test code = 3255) . 1.005-1.025 POCT PH U (test code = 3254) . 5-8 POCT U LEUK EST (test code = 3263) . Negative - N egative POCT U NIT (test code = 3262) . Negative - Negati ve POCT U PROT (test code = 3259) Trace Negative - Negat margie POCT U GLU (test code = 3256) Neg Negative - Negati ve POCT U KETONE (test code = 3258) . Negative - Neg ative POCT U UROBILI (test code = 3260) . 0.2-1 POCT U BILI (test code = 3261) . Negative - Negat margie POCT U BLD (test code = 3257) . Negative - Negati ve POCT U COLOR (test code = 3266) POCT U APPEAR (test code = 3267) [facility] [id number] 19:45:00* Test Item Value Reference Range Interpretation Comme nts POCT U SP GRAV (test code = 3255) . 1.005-1.025 POCT PH U (test code = 3254) . 5-8 POCT U LEUK EST (test code = 3263) . Negative - Negative POCT U NIT (test code = 3262) . Negative - Negati ve POCT U PROT (test code = 3259) 2+ Negative - Negat margie POCT U GLU (test code = 3256) neg Negative - Negati ve POCT U KETONE (test code = 3258) . Negative - Neg ative POCT U UROBILI (test code = 3260) . 0.2-1 POCT U BILI (test code = 3261) . Negative - Negat margie POCT U BLD (test code = 3257) . Negative - Negati ve POCT U COLOR (test code = 3266) POCT U APPEAR (test code = 3267) Lab Interpretation (test cod e = 08920-4) [facility]normal [facility] [id number] 19:45:00* Test Item Value Reference Range Interpretation Comme nts POCT U SP GRAV (test code = 3255) . 1.005-1.025 POCT PH U (test code = 3254) . 5-8 POCT U LEUK EST (test code = 3263) . Negative - Negative POCT U NIT (test code = 3262) . Negative - Negati ve POCT U PROT (test code = 3259) 2+ Negative - Negat margie POCT U GLU (test code = 3256) neg Negative - Negati ve POCT U KETONE (test code = 3258) . Negative - Neg ative POCT U UROBILI (test code = 3260) . 0.2-1 POCT U BILI (test code = 3261) . Negative - Negat margie POCT U BLD (test code = 3257) . Negative - Negati ve POCT U COLOR (test code = 3266) POCT U APPEAR (test code = 3267) Lab Interpretation (test cod e = 48851-7) [facility]"
--- NOTE | 2023-07-29 19:30 | EDPHYS ---
Physician Documentation [facility] Name: Emily Rahman Age: 23 yrs Sex: Female : 2000 Arrival Date: 07/29/2023 Time: 18:55 Bed IW9 Private MD: ED Physician Vijay Fowler HPI: 07/29 19:27 This 23 yrs old Black Female presents to ER via Unassigned with complaints of Toothache.kb 19:27 The patient presents with pain, redness, swelling. The problem is located in the upper kb right second molar, lower right second bicuspid, lower right first molar, lower right second molar and right jaw. Onset: The symptoms/episode began/occurred 1 week(s) ago. Duration: The symptoms are continuous. Modifying factors: The symptoms are alleviated by nothing, the symptoms are aggravated by nothing. Associated signs and symptoms: Pertinent positives: pain, redness in area, swelling, Pertinent negatives: fever. Severity of symptoms: At their worst the symptoms were mild, moderate, in the emergency department the symptoms are unchanged. The patient has experienced similar episodes in the past, a few times. The patient has not recently seen a physician. 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 - Social history:: Smoking status: Patient denies any tobacco usage or history of. Patient/guardian denies using alcohol, street drugs. ROS: 19:27 Constitutional: Negative for fever, chills, and weight loss, kb 19:27 ENT: Positive for dental pain, 19:27 All other systems are negative, Exam: 19:27 Constitutional: This is a well developed, well nourished patient who is awake, alert, kb and in no acute distress. Head/Face: Normocephalic, atraumatic. Cardiovascular: Regular rate Respiratory: Respirations even and unlabored. No increased work of breathing. Talking in full sentences Skin: Warm, dry with normal turgor. Normal color. MS/ Extremity: Pulses equal, no cyanosis. Neurovascular intact. Full, normal range of motion. Neuro: Awake and alert, GCS 15, oriented to person, place, time, and situation. Moves all extremities. Normal gait. 19:27 ENT: Dental exam: gum swelling, that is mild, pain, that is moderate, erythema to gums, Vital Signs: 19:31 BP 127 / 88; Pulse 72; Resp 16; Temp 98.2(IR); Pulse Ox 100% on R/A; Weight 104.33 kg; km8 Height 5 ft. 6 in. ; Pain 8/10; 19:31 Body Mass Index 37.12 (104.33 kg, 167.64 cm) [facility] 19:31 Pain Scale: Adult km8 MDM: 19:14 Patient medically screened. kb 19:29 Differential diagnosis: dental caries, gingivitis, dental abscess, pericoronitis. Data kb reviewed: vital signs, nurses notes. Counseling: I had a detailed discussion with the patient and/or guardian regarding the historical points, exam findings, and any diagnostic results supporting the discharge/admit diagnosis, the need for outpatient follow up, a dentist, to return to the emergency department if symptoms worsen or persist or if there are any questions or concerns that arise at home. Administered Medications: No medications were administered Disposition: 07/30 09:02 Co-signature as Attending Physician, Vijay Fowler MD I reviewed the patient's care rn provided by the Advanced Practice Provider and agree with the diagnosis and treatment plan. Disposition Summary: 07/29/23 19:30 Discharge Ordered Notes: Location: Home kb Condition: Stable kb Diagnosis - Toothache kb Followup: kb - With: Emergency Department - When: As needed - Reason: Worsening of condition Followup: kb - With: Private Physician - When: 2 - 3 days - Reason: Recheck today's complaints, Continuance of care, Re-evaluation by your physician Discharge Instructions: - Discharge Summary Sheet kb - Dental Pain, [id number] kb - Dental Abscess, [id number] kb Forms: - Medication Reconciliation Form kb - Thank You Letter kb - Antibiotic Education kb - Prescription Opioid Use kb - Patient Portal Instructions kb - Leadership Thank You Letter kb Prescriptions: - Augmentin 875-125 mg Oral Tablet - take 1 tablet ORAL route every 12 hours for 10 days; 20 tablet; Refills: 0, kb Product Selection Permitted Signatures: Peyton Westbrook, NATI-C LEADERSHIP DEVELOPMENT MANAGER-Vijay Saldana MD MD rn Nadia Barron RN RN km8
--- NOTE | 2023-07-29 19:37 | ER ---
Nurse's Notes [facility] Name: Emily Rahman Age: 23 yrs Sex: Female : 2000 Arrival Date: 07/29/2023 Time: 18:55 Bed IW9 Private MD: Diagnosis: Toothache Presentation: 07/29 19:29 Chief complaint: Patient states: toothache for 1 week with swelling to right jaw km8 starting yesterday; denies fever/chills. Coronavirus screen: Client denies travel out of the [place] in the last 14 days. Ebola Screen: No symptoms or risks identified at this time. Initial Sepsis Screen: Does the patient meet any 2 criteria? No. Patient's initial sepsis screen is negative. Does the patient have a suspected source of infection? No. Patient's initial sepsis screen is negative. Risk Assessment: Do you want to hurt yourself or someone else? Patient reports no desire to harm self or others. Onset of symptoms was July 22, 2023. 19:29 Method Of Arrival: Ambulatory km8 19:29 Acuity: CUCA 4 km8 Triage Assessment: 19:31 General: Appears in no apparent distress. comfortable, Behavior is calm, cooperative, km8 appropriate for age. Pain: Complains of pain in lower right second molar and lower right first molar and lower right second bicuspid and upper right second molar and right jaw Pain currently is 8 out of 10 on a pain scale. EENT: Reports toothache. Neuro: Level of Consciousness is awake, alert, obeys commands, Oriented to person, place, time, situation. Cardiovascular: Denies chest pain, shortness of breath. Respiratory: Airway is patent Respiratory effort is even, unlabored, Respiratory pattern is regular, symmetrical. GI: No signs and/or symptoms were reported involving the gastrointestinal system. : No signs and/or symptoms were reported regarding the genitourinary system. Derm: Skin is intact, is healthy with good turgor, Skin is dry, Skin is pink, warm \T\ dry. normal, Skin temperature is warm. Musculoskeletal: No signs and/or symptoms reported regarding the musculoskeletal system. Circulation, motion, and sensation intact. Range of motion: intact in all extremities. 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 - Social history:: Smoking status: Patient denies any tobacco usage or history of. Patient/guardian denies using alcohol, street drugs. Screenin:33 [facility] ED Fall Risk Assessment (Adult) History of falling in the last 3 months, km8 including since admission No falls in past 3 months (0 pts) Confusion or Disorientation No (0 pts) Intoxicated or Sedated No (0 pts) Impaired Gait No (0 pts) Mobility Assist Device Used No (0 pt) Altered Elimination No (0 pt) Score/Fall Risk Level 0 - 2 = Low Risk Oriented to surroundings, Maintained a safe environment, Educated pt \T\ family on fall prevention, incl call for assistance when getting out of bed, Assessed \T\ reinforced patient's understanding of fall precautions. Abuse screen: Denies threats or abuse. Denies injuries from another. Nutritional screening: No deficits noted. Tuberculosis screening: No symptoms or risk factors identified. Assessment: 19:33 General: see triage assessment/notes. km8 Vital Signs: 19:31 BP 127 / 88; Pulse 72; Resp 16; Temp 98.2(IR); Pulse Ox 100% on R/A; Weight 104.33 kg; km8 Height 5 ft. 6 in. ; Pain 8/10; 19:31 Body Mass Index 37.12 (104.33 kg, 167.64 cm) km8 19:31 Pain Scale: Adult km8 ED Course: 19:12 Patient arrived in ED. mg5 19:14 Peyton Westbrook FNP-C is [facility]. kb 19:14 Vijay Fowler MD is Attending Physician. kb 19:30 Triage completed. km8 19:31 Arm band placed on right wrist. km8 19:33 Patient has correct armband on for positive identification. Provided Education on: d/c km8 teaching. 19:33 No provider procedures requiring assistance completed. Patient did not have IV access km8 during this emergency room visit. Administered Medications: No medications were administered Medication: 19:33 VIS not applicable for this client. km8 Outcome: 19:30 Discharge ordered by MD. weir 19:34 Discharged to home ambulatory, km8 19:34 Condition: good 19:34 Discharge instructions given to patient, Instructed on discharge instructions, follow km8 up and referral plans. medication usage, Demonstrated understanding of instructions, follow-up care, medications, Prescriptions given X 1, 19:37 Patient left the ED. km8 Signatures: Peyton Westbrook FNP-C FNP-Betsy Buchanan mg5 Nadia Barron, RN RN km8
== END ==
LOC: ER 18:55
DX: K08.89 Other specified disorders of teeth and supporting structures (principal)

== ENCOUNTER 2024-02-18 08:11 | Emergency (ER) | payer OTHER, SELFPAY ==
[2024-02-18] MEDS ORDERED: IPRATROPIUM BROM 0.5MG/2.5ML ONE (08:49)
[2024-02-18] MEDS ORDERED: ALBUTEROL 2.5 MG/3 ML NEB SOL ONE (08:51)
[2024-02-18 09:29] LABS: SARS-CoV-2 Antigen CONTROL BLUE LINE VIS/BG OK; SARS-CoV-2 Antigen Rapid Res Negative (Negative)
--- NOTE | 2024-02-18 09:35 | ER ---
Nurse's Notes [facility] Name: Emily Rahman Age: 24 yrs Sex: Female : 2000 Arrival Date: 02/18/2024 Time: 08:11 Bed 19 Private MD: Diagnosis: Streptococcal pharyngitis Presentation: 02/17 08:50 Chief complaint: Patient states: sore throat; cold-like symptoms; non-productive cough; ar6 pt reports, children were ill last week. 08:50 Acuity: CUCA 3 ar6 08:50 Coronavirus screen: Vaccine status: Patient reports receiving the 2nd dose of the covid ar6 vaccine. Client denies travel out of the [place] in the last 14 days. Client presents with at least one sign or symptom that may indicate coronavirus-19. Standard/surgical mask placed on the client. Ebola Screen: Patient negative for fever greater than or equal to 101.5 degrees Fahrenheit, and additional compatible Ebola Virus Disease symptoms Patient denies exposure to infectious person. Patient denies travel to an Ebola-affected area in the 21 days before illness onset. No symptoms or risks identified at this time. Initial Sepsis Screen: Does the patient meet any 2 criteria? No. Patient's initial sepsis screen is negative. Does the patient have a suspected source of infection? No. Patient's initial sepsis screen is negative. Risk Assessment: Do you want to hurt yourself or someone else? Patient reports no desire to harm self or others. Onset of symptoms was February 17, 2024 at 08:00. Care prior to arrival: None. Activity prior to arrival: None. Mechanism of Injury: No Mechanism of Injury. Transition of care: patient was not received from another setting of care. 08:50 Method Of Arrival: Ambulatory ar6 Triage Assessment: 08:50 General: Appears in no apparent distress. Behavior is calm, cooperative, appropriate ar6 for age. Historical: - Allergies: 08:30 No Known Allergies; ar6 - PMHx: 08:30 Asthma; ar6 - PSHx: 08:30 Tonsillectomy; ar6 - Immunization history:: Adult Immunizations up to date. - Infectious Disease History:: Denies. - Social history:: Smoking status: Patient denies any tobacco usage or history of. Screenin:30 [facility] ED Fall Risk Assessment (Adult) History of falling in the last 3 months, ar6 including since admission No falls in past 3 months (0 pts) Confusion or Disorientation No (0 pts) Intoxicated or Sedated No (0 pts) Impaired Gait No (0 pts) Mobility Assist Device Used Yes (1 pt) Altered Elimination No (0 pt) Score/Fall Risk Level 0 - 2 = Low Risk. Abuse screen: Denies threats or abuse. Denies injuries from another. Nutritional screening: No deficits noted. Tuberculosis screening: No symptoms or risk factors identified. Assessment: 08:28 General: Appears in no apparent distress. Behavior is calm, cooperative, appropriate ar6 for age. Pain: Denies pain. Neuro: Level of Consciousness is awake, alert, obeys commands, Oriented to person, place, time. Cardiovascular: Capillary refill < 3 seconds. Respiratory: Airway is patent. GI: Abdomen is round non-distended, Bowel sounds present X 4 quads. Abd is soft and non tender X 4 quads. : No signs and/or symptoms were reported regarding the genitourinary system. EENT: Oral mucosa is moist. Derm: Skin is intact, is healthy with good turgor, Skin is dry, Skin is pink, warm \T\ dry. Musculoskeletal: No signs and/or symptoms reported regarding the musculoskeletal system. Vital Signs: 08:30 BP 117 / 65; Pulse 75; Resp 18; Temp 98.7; Pulse Ox 100% ; Weight 99.79 kg; Height 5 ar6 ft. 6 in. ; Pain 0/10; 09:28 BP 118 / 67; Pulse 77; Resp 16; Pulse Ox 100% on R/A; ar6 09:40 BP 116 / 67; Pulse 75; Resp 18; Pulse Ox 100% on R/A; Pain 0/10; ar6 08:30 Body Mass Index 35.51 (99.79 kg, 167.64 cm) ar6 08:30 Pain Scale: Adult ar6 09:40 Pain Scale: Adult ar6 ED Course: 08:15 Patient arrived in ED. ra3 08:19 Beronica David MD is Attending Physician. sp3 08:24 Alesia Boyle, RN is Primary Nurse. ar6 08:30 No apparent distress. ar6 08:30 Patient has correct armband on for positive identification. Placed in gown. Bed in low ar6 position. Call light in reach. Side rails up X 1. Pulse ox on. NIBP on. Door closed. Noise minimized. Visitors limited. Lights dimmed. Warm blanket given. 08:47 Strep Sent. ar6 08:48 SARS RAPID Sent. ar6 08:48 Flu Sent. ar6 09:36 CXR XRAY In Process Unspecified. EDMS 09:40 Provided Education on:. ar6 09:40 No provider procedures requiring assistance completed. Patient did not have IV access ar6 during this emergency room visit. :44 Triage completed. ar6 09:44 Patient none. ar6 Administered Medications: 08:55 Drug: DuoNeb Nebulize (3:1) (2.5 mg - 0.5 mg) 3 ml Nebulizer once Route: Nebulizer; ar6 09:45 Follow up: Response: No adverse reaction ar6 Medication: 09:40 VIS not applicable for this client. ar6 Outcome: 09:34 Discharge ordered by . sp3 09:40 Discharged to home ambulatory, ar6 09:40 Condition: good 09:40 Discharge instructions given to patient, Instructed on discharge instructions, follow up and referral plans. medication usage, Demonstrated understanding of instructions, follow-up care, medications, Prescriptions given X 1, 09:47 Patient left the ED. ar6 Signatures: Dispatcher [employer] Beronica Canales MD MD sp3 Elle Chambers Amber RN RN ar6
--- NOTE | 2024-02-18 09:35 | EDPHYS ---
Physician Documentation [facility] Name: Emily Rahman Age: 24 yrs Sex: Female : 2000 Arrival Date: 02/18/2024 Time: 08:11 Bed 19 Private MD: ED Physician Beronica David HPI: 02/17 08:50 This 24 yrs old Black Female presents to ER via Unassigned with complaints of Cold sp3 Symptoms. 08:50 24-year-old female with history of asthma presents with a 3-day history of cough, sp3 congestion, mild shortness of breath and rhinorrhea. Patient states she has had pneumonia in the past. She also reports increased use of inhaler over the last 2 days. She denies any fever, known sick contacts, travel history, headache, neck pain, chest pain, abdominal pain, vomiting, diarrhea, syncope, near syncope, rash, or any other signs or symptoms on ROS at this time.. Historical: - Allergies: 08:30 No Known Allergies; ar6 - PMHx: 08:30 Asthma; ar6 - PSHx: 08:30 Tonsillectomy; ar6 - Immunization history:: Adult Immunizations up to date. - Infectious Disease History:: Denies. - Social history:: Smoking status: Patient denies any tobacco usage or history of. ROS: 08:51 Constitutional: Negative for fever, chills, and weight loss, Eyes: Negative for injury, sp3 pain, redness, and discharge, Neck: Negative for injury, pain, and swelling, Cardiovascular: Negative for chest pain, palpitations, and edema, Abdomen/GI: Negative for abdominal pain, nausea, vomiting, diarrhea, and constipation, Back: Negative for injury and pain, MS/Extremity: Negative for injury and deformity, Skin: Negative for injury, rash, and discoloration, Neuro: Negative for headache, weakness, numbness, tingling, and seizure, Psych: Negative for depression, anxiety, suicide ideation, homicidal ideation, and hallucinations, Allergy/Immunology: Negative for hives, rash, and allergies, Endocrine: Negative for neck swelling, polydipsia, polyuria, polyphagia, and marked weight changes, Hematologic/Lymphatic: Negative for swollen nodes, abnormal bleeding, and unusual bruising, 08:51 All other systems are negative, Exam: 08:51 Constitutional: This is a well developed, well nourished patient who is awake, alert, sp3 and in no acute distress. Head/Face: Normocephalic, atraumatic. Eyes: Pupils equal round and reactive to light, extra-ocular motions intact. Lids and lashes normal. Conjunctiva and sclera are non-icteric and not injected. Cornea within normal limits. Periorbital areas with no swelling, redness, or edema. Neck: Trachea midline, no thyromegaly or masses palpated, and no cervical lymphadenopathy. Supple, full range of motion without nuchal rigidity, or vertebral point tenderness. No Meningismus. Chest/axilla: Normal chest wall appearance and motion. Nontender with no deformity. No lesions are appreciated. Cardiovascular: Regular rate and rhythm with a normal S1 and S2. No gallops, murmurs, or rubs. Normal PMI, no JVD. No pulse deficits. Abdomen/GI: Soft, non-tender, with normal bowel sounds. No distension or tympany. No guarding or rebound. No evidence of tenderness throughout. Back: No spinal tenderness. No costovertebral tenderness. Full range of motion. Skin: Warm, dry with normal turgor. Normal color with no rashes, no lesions, and no evidence of cellulitis. MS/ Extremity: Pulses equal, no cyanosis. Neurovascular intact. Full, normal range of motion. Neuro: Awake and alert, GCS 15, oriented to person, place, time, and situation. Cranial nerves II-XII grossly intact. Motor strength 5/5 in all extremities. Sensory grossly intact. Cerebellar exam normal. Normal gait. Psych: Awake, alert, with orientation to person, place and time. Behavior, mood, and affect are within normal limits. 08:51 ENT: Mild pharyngeal erythema. Rhinorrhea noted.. 08:51 Respiratory: Active cough with scattered wheeze. Respiratory rate at 18 breaths/min. No accessory muscle use or respiratory distress noted., Vital Signs: 08:30 BP 117 / 65; Pulse 75; Resp 18; Temp 98.7; Pulse Ox 100% ; Weight 99.79 kg; Height 5 ar6 ft. 6 in. ; Pain 0/10; 09:28 BP 118 / 67; Pulse 77; Resp 16; Pulse Ox 100% on R/A; ar6 09:40 BP 116 / 67; Pulse 75; Resp 18; Pulse Ox 100% on R/A; Pain 0/10; ar6 08:30 Body Mass Index 35.51 (99.79 kg, 167.64 cm) ar6 08:30 Pain Scale: Adult ar6 09:40 Pain Scale: Adult ar6 MDM: 08:20 Patient medically screened. sp3 08:52 Data reviewed: vital signs, nurses notes, radiologic studies. ED course: 24-year-old sp3 female with URI symptoms with history of asthma. Differential diagnosis includes pneumonia, colitis, viral illness, COVID-19, influenza, strep pharyngitis, among others. I am not highly suspicious of vascular pathology, cardiac pathology, sepsis or shock. Workup will include chest x-ray, swabs and treatment will be nebulizer x 1. Disposition pending workup and patient course with probable discharge with any indicated medications.. 09:34 ED course: Group A strep screen is positive. Chest x-ray negative and remainder swabs sp3 are negative. Will discharge home on p.o. Augmentin.. 02/17 08:38 Order name: Flu; Complete Time: 09:33 sp3 02/17 08:38 Order name: SARS RAPID; Complete Time: 09:33 sp3 02/17 08:38 Order name: Strep; Complete Time: 09:33 sp3 02/17 08:38 Order name: CXR XRAY; Complete Time: 09:47 sp3 Administered Medications: 08:55 Drug: DuoNeb Nebulize (3:1) (2.5 mg - 0.5 mg) 3 ml Nebulizer once Route: Nebulizer; ar6 09:45 Follow up: Response: No adverse reaction ar6 Disposition Summary: 02/18/24 09:34 Discharge Ordered Notes: Location: Home sp3 Condition: Stable sp3 Diagnosis - Streptococcal pharyngitis sp3 Followup: sp3 - With: Private Physician - When: Upon discharge from the Emergency Department - Reason: Continuance of care Discharge Instructions: - Discharge Summary Sheet sp3 - Strep Throat, Adult sp3 Forms: - Medication Reconciliation Form sp3 - Antibiotic Education sp3 - Prescription Opioid Use sp3 - Patient Portal Instructions sp3 - Leadership Thank You Letter sp3 Prescriptions: - Augmentin 875-125 mg Oral Tablet - take 1 tablet ORAL route every 12 hours for 10 days; 20 tablet; Refills: 0, sp3 Product Selection Permitted Signatures: Dispatcher [employer] EDMS Beronica David MD MD sp3 Alesia Boyle RN RN ar6 Corrections: (The following items were deleted from the chart) 08:39 08:38 Influenza Screen (A \T\ B)+BA.LAB.BRZ ordered. EDMS EDMS 08:39 08:38 SARS-COV-2 Antigen Rapid+I.LAB.BRZ ordered. EDMS EDMS 08:39 08:38 Group A Streptococcus Rapid Sc+BA.LAB.BRZ ordered. EDMS EDMS
--- NOTE | 2024-02-18 09:43 | RAD REPORT ---
EXAM DESCRIPTION: Jasen Single View02/18/2024 9:34 am CLINICAL HISTORY: cough COMPARISON: none FINDINGS: The lungs appear clear of acute infiltrate. The heart is normal size IMPRESSION: No acute abnormalities displayed
[2024-02-18 09:52] VITALS: TEMP 98.7; O2SAT 100
[2024-02-18 09:55] VITALS: BP 116/67
--- OUTSIDE RECORDS SUMMARY | 2024-02-19 09:24 | XMS REPORT | Continuity of Care Document ---
Author Name Unknown Address [address] [facility] [address] [place] [address] [facility] thconnect Address [address] [facility]. [address] [place] [address] Care Team Providers Care Briquetter Operator Name Role Phone THERESA LORD Primary Care Physician Wilfrid jarrell [email or web address]_S Attending Clinician JOISE Johnston Attending Clinician Josie Johnston CNM Attending Clinician [phone] Doctor Unassigned, [place] Attending Clinician U THERESA Maciel Attending Clinician Dung Lord WHTheresa GRUBBS Attending Clinician + Visit, Ang-Rmchp Nurse Attending Clinician Jacqueline Vickers MD, Sabrina Bahena Attending Clinician [phone] Ami Paige Attending Clinician [phone] Ultrasound, AntonMfjosiah Attending Clinician Radha Granados Attending Clinician + [phone] NATANAEL_GCBZW_Nida_S Admitting Clinician Sabrina Mistry MD Admitting Clinician [phone] Payers Payer Name Policy Type Policy Number Effective Date Expirati on Date Source [place] [id number] 2022 00:00:00 [facility] [id number] 2019 00:00:00 Problems Condition Name Condition Details Condition Category Status Onset Date Resolution Date Last Treatment Date Treating Clinician Comments Source Nexplanon in place Nexplanon in place Disease Active 5 00:00: 00 [facility] Other general counseling and advice for contracept margie management Other general counseling and advice for contracept margie management Disease Active 5- 00:00: 00 [facility] Routine follow-up Routine follow-up Disease Active 09-01 00:00: 00 [facility] (spontaneo us vaginal delivery) (spontaneo us vaginal delivery) Disease Active 2-07 00:00: 00 [facility] Single live Single live Disease Active 2- 00:00: 00 [facility] History of asthma History of asthma Disease Active 2-07 00:00: 00 [facility] Gestationa l hypertensi on Gestationa l hypertensi on Disease Active 206 00:00: 00 [facility] Gestationa l hypertensi on Gestationa l hypertensi on Disease Active 206 00:00: 00 [facility] Obesity (BMI 30-39.9) Obesity (BMI 30-39.9) Disease Active 2-05 00:00: 00 [facility] 39 weeks gestation of 39 weeks gestation of Disease Active 205 00:00: 00 [facility] Susceptibl e to varicella (non-immun e), currently Susceptibl e to varicella (non-immun e), currently Disease Active 12-20 00:00: 00 Overview: Formattin g of this note might be different from the original. Address pp [facility] Multiparit y Multiparit y Disease Active 12-17 00:00: 00 [facility] Obesity affecting Obesity affecting Disease Active 2016-07 00:00: 00 [facility] Supervisio n of high risk , antepartum Supervisio n of high risk , antepartum Disease Active 2017-1 0-18 00:00: 00 [facility] Allergies, Adverse Reactions, Alerts Allergy Name Allergy Type Status Severity Reaction(s) Onset Date Inactive Date Treating Clinician Comments Source NO KNOWN ALLERGIE S Drug Class Active [facility] Social History Social Habit Start Date Stop Date Quantity Comments Source ASSERTION 2018-11-24 00:00:00 [facility] Exposure to SARS-CoV-2 (event) 2022-09-26 00:00:00 2022-10-06 08:16:00 Not sure [facility] Tobacco use and exposure 2022-10-06 00:00:00 2022-10-06 00:00:00 Smokeless tobacco non-user [facility] Alcohol intake 2022-10-06 00:00:00 2022-10-06 00:00:00 Current non-drinker of alcohol (finding) [facility] Alcohol Comment 2018-12-17 00:00:00 2018-12-17 00:00:00 last sexual intercourse 12/09/2018 [facility] Sex Assigned At 1998 00:00:00 2000 00:00:00 [facility] Smoking Status Start Date Stop Date Source Never smoked tobacco [facility] Medications Ordered Medication Name Filled Medication Name Start Date Stop Date Current Medication? Ordering Clinician Indication Dosage Frequency Signature (SIG) Comments Components Source etonogestre l (NEXPLANON) implant 68 mg 09-22 21:45: 00 09-22 20:45 :00 No [id number] 68mg Univer s [facility] varicella virus vaccine live (VARIVAX (PF)) injection 0.5 mL 08-13 13:26: 45 Yes .5mL 0.5 mL, Subcutaneo us, ONCE-PRIOR TO DISCHARGE, 1 dose, Starting 08/13/19 at 0726, Until Discontinu ed, Routine, Give vaccine prior to discharge [facility] ferrous sulfate tablet 325 mg 08-12 15:00: 00 Yes 325mg 325 mg, Oral, DAILY, First dose on 08/12/19 at 0900, Until Discontinu ed, Routine [facility] ibuprofen (IBU) tablet 600 mg 08-12 02:45: 55 Yes 600mg 600 mg, Oral, Q6HPRN, Starting Zeina 08/11/19 at 2044, Until Discontinu ed, Routine, Pain (scale 4-6) [facility] acetaminoph en (TYLENOL) tablet 650 mg 08-12 02:45: 55 Yes 650mg 650 mg, Oral, Q6HPRN, Starting Zeina 08/11/19 at 2044, Until Discontinu ed, Routine, Pain (scale 1-3) [facility] diphenhydrA MINE (BENADRYL) tablet 25 mg 08-12 02:45: 55 Yes 25mg 25 mg, Oral, Q6HPRN, Starting Zeina 08/11/19 at 2044, Until Discontinu ed, Routine, Sleep, Itching [facility] ondansetron (ZOFRAN (PF)) injection 4 mg 08-12 02:45: 55 Yes 4mg 4 mg, Slow IV Push, Q8HPRN, Starting Zeina 08/11/19 at 2044, Until Discontinu ed, Routine, Nausea and Vomiting (N/V) [facility] simethicone (GAS RELIEF (SIMETHICON E)) chewable tablet 160 mg 08-12 02:45: 55 Yes 160mg 160 mg, Oral, PC+HSPRN, Starting Zeina 08/11/19 at 2044, Until Discontinu ed, Routine, Gas [facility] docusate calcium (SURFAK) capsule 240 mg 08-12 02:45: 55 Yes 240mg 240 mg, Oral, QDAILYPRN, Starting Zeina 08/11/19 at 2044, Until Discontinu ed, Routine, Constipati on [facility] magnesium hydroxide (MILK OF MAGNESIA) 400 mg/5 mL suspension 30 mL 08-12 02:45: 55 Yes 30mL 30 mL, Oral, QDAILYPRN, Starting Zeina 08/11/19 at 2044, Until Discontinu ed, Routine, Constipati on [facility] benzocaine- menthol (DERMOPLAST ) 20-0.5 % topical spray 08-12 02:45: 55 Yes Topical, PRN, Starting Zeina 08/11/19 at 2045, Until Discontinu ed, Routine, Perineum discomfort [facility] docusate calcium 240 mg capsule 08-12 00:00: 00 09-25 00:00 :00 No [id number] 240mg Take 1 capsule by mouth once daily as needed for Constipati on. [facility] ibuprofen 600 mg tablet 08-12 00:00: 09-25 00:00 :00 No [id number] 600mg Take 1 tablet by mouth every 6 (six) hours as needed (Pain). Take with food or milk. [facility] Iron Fum & P-FA-Vit B & C No.9 (INTEGRA PLUS) 125 mg iron- 1 mg Cap 08-12 00:00: 00 09-25 00:00 :00 No [id number] 1{capsu le} Take 1 capsule by mouth daily. [facility] amnioinfusi on IV infusion via GRAVITY 0.9 NaCL 1,000 mL 08-11 20:00: 00 08-11 20:06 :00 No 1000mL at 750 mL/hr, Intrauteri ne, ONCE, 1 dose, Zeina 08/11/19 at 1400, RADHA
In fuse via gravity 750 ml over 1 hour.&nbsp ; Once 750 mL has been infused, the infusion may be dicsontinu ed or decreased to 100 mL/hr until the liter is complete.& nbsp;&nbsp ;Notify Hvac Sales Representative if uterine resting tone exceeds 25 mmHg at any time during the amnioinfus ion. Obst etrics (KARINA) Aminoinfus ion Orders
[facility] lactated ringers IV infusion 500 mL 08-11 17:45: 00 08-11 16:45 :00 No 500mL at 999 mL/hr, 500 mL, IV Infusion, ONCE, 1 dose, Zeina 08/11/19 at 1145, Routine [facility] ondansetron (ZOFRAN (PF)) injection 4 mg 08-11 08:15: 00 08-11 07:12 :00 No 4mg 4 mg, Slow IV Push, ONCE, 1 dose, Zeina 08/11/19 at 0215, Routine [facility] D5W-LR IV infusion 1,000 mL 08-11 04:00: 00 08-12 02:46 :09 No 1000mL at 125 mL/hr, IV Infusion, CONTINUOUS , Starting 08/10/19 at 2200, Until Zeina 08/11/19 at 2046, Routine [facility] LR 1000 mL + oxytocin 20 units IV Solution 08-11 03:55: 08 08-12 02:46 :09 No 2mU/min 2 julio-unit s/min (6 mL/hr), at 6 mL/hr, IV Infusion, TITRATE, Starting 08/10/19 at 2155, Until Zeina 08/11/19 at 2045, RADHA, Oxytocin Induction / Augmentati on of Labor. [facility] sodium citrate-cit jaycee acid (BICITRA) 500-334 mg/5 mL solution 30 mL 08-11 03:51: 29 08-11 16:38 :00 No 30mL 30 mL, Oral, PRE-PROCED URE ONCE, 1 dose, Starting Thu08/10/19 at 2151, Until Discontinu ed, Routine, Surgery/Pr ocedure [facility] ferrous sulfate 325 mg (65 mg iron) tablet 12-10 00:00: 00 08-12 00:00 :00 No [id number] 325mg Take 1 tablet by mouth 2 (two) times daily. [facility] ascorbic acid, vitamin C, 500 mg tablet 12-10 00:00: 00 08-12 00:00 :00 No [id number] 500mg Take 1 tablet by mouth 3 (three) times daily. [facility] doxylamine- pyridoxine, vit B6, (DICLEGIS) 10-10 mg per tablet 2016-07 00:00: 00 08-12 00:00 :00 No [id number] 2{tbl} Take 2 tablets by mouth at bedtime. [facility] PNV 67-iron ps-folate no.1-dha (VITAFOL ULTRA) 29 mg iron- 1 mg-200 mg Cap 2017-1 0-18 00:00: 00 08-12 00:00 :00 No [id number] 1{each} Take 1 Each by mouth daily. [facility] Vital Signs Vital Name Observation Time Observation Value Comments S salvatore Systolic blood pressure 2022-10-06 13:30:00 113 mm[Hg] [facility] Diastolic blood pressure 2022-10-06 13:30:00 73 mm[Hg] [facility] Heart rate 2022-10-06 13:30:00 77 /min Unive [facility] Body temperature 2022-10-06 13:30:00 36.17 Isa [facility] Respiratory rate 2022-10-06 13:30:00 18 /min [facility] Body height 2022-10-06 13:30:00 162.6 cm Univ [facility] Body weight 2022-10-06 13:30:00 106.051 kg [facility] BMI 2022-10-06 13:30:00 40.13 kg/m2 Univ [facility] Systolic blood pressure 2022-09-25 18:35:00 125 mm[Hg] [facility] Diastolic blood pressure 2022-09-25 18:35:00 84 mm[Hg] [facility] Heart rate 2022-09-25 18:35:00 110 /min Unive [facility] Body temperature 2022-09-25 18:35:00 36.78 Isa [facility] Respiratory rate 2022-09-25 18:35:00 20 /min [facility] Body height 2022-09-25 18:35:00 162.6 cm Univ [facility] Body weight 2022-09-25 18:35:00 103.964 kg [facility] BMI 2022-09-25 18:35:00 39.34 kg/m2 [facility] Systolic blood pressure 2020-02-20 18:45:00 109 mm[Hg] [facility] Diastolic blood pressure 2020-02-20 18:45:00 73 mm[Hg] [facility] Heart rate 2020-02-20 18:45:00 77 /min [facility] 2020-02-20 18:45:00 36.89 Isa [facility] Respiratory rate 2020-02-20 18:45:00 16 /min [facility] Body height 2020-02-20 18:45:00 162.6 cm [facility] weight 2020-02-20 18:45:00 91.768 kg [facility] BMI 2020-02-20 18:45:00 34.73 kg/m2 [facility] Systolic blood pressure 2019-09-23 20:15:00 125 mm[Hg] [facility] Diastolic blood pressure 2019-09-23 20:15:00 77 mm[Hg] [facility] Heart rate 2019-09-23 20:15:00 78 /min [facility] Body temperature 2019-09-23 20:15:00 37.11 Isa [facility] Respiratory rate 2019-09-23 20:15:00 16 /min [facility] Body height 2019-09-23 20:15:00 162.6 cm [facility] Body weight 2019-09-23 20:15:00 85.475 kg [facility] BMI 2019-09-23 20:15:00 32.35 kg/m2 [facility] Systolic blood pressure 2019-09-01 16:15:00 114 mm[Hg] [facility] Diastolic blood pressure 2019-09-01 16:15:00 68 mm[Hg] [facility] Heart rate 2019-09-01 16:15:00 74 /min [facility] Body temperature 2019-09-01 16:15:00 36.72 Isa [facility] Respiratory rate 2019-09-01 16:15:00 16 /min [facility] Body height 2019-09-01 16:15:00 162.6 cm [facility] Body weight 2019-09-01 16:15:00 85.333 kg Univ ersity [facility] BMI 2019-09-01 16:15:00 32.29 kg/m2 [facility] Systolic blood pressure 2019-08-18 21:56:00 124 mm[Hg] [facility] Diastolic blood pressure 2019-08-18 21:56:00 80 mm[Hg] [facility] Heart rate 2019-08-18 21:56:00 92 /min Unive [facility] Body temperature 2019-08-18 21:56:00 37.22 Isa [facility] Respiratory rate 2019-08-18 21:56:00 16 /min [facility] Body height 2019-08-18 21:56:00 160 cm Univ [facility] Body weight 2019-08-18 21:56:00 86.592 kg [facility] BMI 2019-08-18 21:56:00 33.82 kg/m2 [facility] Systolic blood pressure 2019-08-13 14:00:00 119 mm[Hg] [facility] Diastolic blood pressure 2019-08-13 14:00:00 76 mm[Hg] [facility] Heart rate 2019-08-13 14:00:00 74 /min Unive [facility] Body temperature 2019-08-13 14:00:00 37 Isa [facility] Respiratory rate 2019-08-13 14:00:00 18 /min [facility] Oxygen saturation in Arterial blood by Pulse oximetry 2019-08-13 14:00:00 99 /min [facility] Body height 2019-08-11 02:00:00 162 cm [facility] Body weight 2019-08-11 02:00:00 94.348 kg [facility] BMI 2019-08-11 02:00:00 35.95 kg/m2 Univ [facility] Systolic blood pressure 2019-08-03 19:39:00 116 mm[Hg] [facility] Diastolic blood pressure 2019-08-03 19:39:00 75 mm[Hg] [facility] Heart rate 2019-08-03 19:39:00 116 /min Unive [facility] Body temperature 2019-08-03 19:39:00 37 Isa [facility] Respiratory rate 2019-08-03 19:39:00 16 /min [facility] Body height 2019-08-03 19:39:00 165.1 cm [facility] Body weight 2019-08-03 19:39:00 95.369 kg [facility] BMI 2019-08-03 19:39:00 34.99 kg/m2 [facility] Systolic blood pressure 2019-07-26 21:14:00 134 mm[Hg] [facility] Diastolic blood pressure 2019-07-26 21:14:00 87 mm[Hg] [facility] Heart rate 2019-07-26 21:14:00 92 /min Unive [facility] Body temperature 2019-07-26 21:14:00 37.72 Isa [facility] Respiratory rate 2019-07-26 21:14:00 16 /min [facility] Body height 2019-07-26 21:14:00 165.1 cm [facility] Body weight 2019-07-26 21:14:00 96.389 kg [facility] BMI 2019-07-26 21:14:00 35.36 kg/m2 [facility] Systolic blood pressure 2019-03-22 19:25:00 113 mm[Hg] [facility] Diastolic blood pressure 2019-03-22 19:25:00 72 mm[Hg] [facility] Heart rate 2019-03-22 19:25:00 93 /min Unive [facility] Body temperature 2019-03-22 19:25:00 36.94 Isa [facility] Respiratory rate 2019-03-22 19:25:00 16 /min [facility] Body height 2019-03-22 19:25:00 160 cm [facility] Body weight 2019-03-22 19:25:00 93.441 kg [facility] BMI 2019-03-22 19:25:00 36.49 kg/m2 [facility] Systolic blood pressure 2019-02-21 19:44:00 134 mm[Hg] [facility] Diastolic blood pressure 2019-02-21 19:44:00 77 mm[Hg] [facility] Heart rate 2019-02-21 19:44:00 101 /min [facility] Body temperature 2019-02-21 19:44:00 37 Isa [facility] Respiratory rate 2019-02-21 19:44:00 16 /min [facility] Body height 2019-02-21 19:44:00 160 cm [facility] Body weight 2019-02-21 19:44:00 94.121 kg [facility] BMI 2019-02-21 19:44:00 36.76 kg/m2 [facility] Procedures Procedure Date / Time Performed Performing Clinician Source DISCLOSURE AND CONSENT, MEDICAL AND SURGICAL PROCEDURES 2022-10-06 05:01:00 Doctor Unassigned, [place] [facility] GARDASIL 9 (HPV 9V) VACCINE 2022-09-25 18:54:20 Theresa Lord [facility] ASSIGNMENT OF BENEFITS 2022-09-25 18:15:42 Jose Cruz florence Unassigned, [place] [facility] GARDASIL 9 (HPV 9V) VACCINE 2020-02-20 19:16:37 Theresa Lodr [facility] ASSIGNMENT OF BENEFITS 2020-02-20 18:38:40 Jose Cruz florence Unassigned, [place] [facility] GARDASIL 9 (HPV 9V) VACCINE 2019-09-23 21:08:55 Theresa Lord [facility] POCT TEST 2019-09-23 20:16:00 Jeet Lord [facility] CONSENT FOR CONTRACEPTION 2019-09-23 05:01:00 Doctor Unassigned, [place] [facility] CBC WITH DIFFERENTIAL 2019-08-12 09:42:00 Tian Alberto [facility] VENOUS CORD GAS 2019-08-11 23:27:00 Artem Carranza [facility] URINALYSIS 2019-08-11 12:19:00 Pauly Hill [facility] PROTEIN CREAT RATIO URINE RANDOM 2019-08-11 12:19:00 Pauly Hill [facility] LACTATE DEHYDROGENASE 2019-08-11 07:31:00 Nell Hill [facility] CBC WITH DIFFERENTIAL 2019-08-11 07:31:00 Nell Hill [facility] SGOT (ASPARTATE AMINO TRANSFER) 2019-08-11 04:05:00 Pauly Hill [facility] CREATININE 2019-08-11 04:05:00 Pauly Hill [facility] ALANINE AMINO TRANSFERASE(SGPT 2019-08-11 04:05:00 Pauly Hill [facility] URIC ACID 2019-08-11 04:05:00 Pauly Hill [facility] HEPATITIS B SURFACE ANTIGEN 2019-08-11 04:05:00 Pedro Carranza [facility] GALV ONLY - SYPHILIS IGG/IGM 2019-08-11 04:05:00 Pedro Carranza [facility] HB ABO GROUPING 2019-08-11 04:04:00 Artem Carranza [facility] RHO (D) IMMUNE GLOBULIN 2019-08-11 04:04:00 Nell Alberto [facility] POCT URINALYSIS 2019-08-03 19:42:00 Theresa Lord [facility] POCT URINALYSIS 2019-07-26 21:46:00 Theresa Lord [facility] POCT URINALYSIS 2019-03-22 19:31:00 Theresa Lord [facility] POCT URINALYSIS 2019-02-21 19:44:00 Theresa Lord [facility] Encounters Start Date/Time End Date/Time Encounter Type Admission Type Attending [facility] Care Department Encounter ID Source 2023-05-02 00:00:00 2023-05-02 00:00:00 Outpatient GC_GCBZW_Ka henny_S [facility] [id number] [facility] 2022-10-06 08:30:00 2022-10-06 08:59:30 Outpatient JOSIE BABCOCK [facility] [id number] [facility] 2022-10-06 08:30:00 2022-10-06 08:59:30 Office Visit Josie Torres [facility] ADMINISTRATOR [facility] 1..114 350.1.13.10 [id number] [id number] [facility] 2022-10-06 00:00:00 2022-10-06 00:00:00 Orders Only Doctor Unassigned, [place] [facility] [id number] 350.1.13.10 4.2.7.2.686 [id number] [facility] 2022-09-25 13:15:00 2022-09-25 14:35:28 Outpatient R THERESA LORD [facility] [id number] [facility] 2022-09-25 13:15:00 2022-09-25 14:35:28 Office Visit Theresa Lord [facility] 1.84.114 350.1.13.10 4.2.7.2.686 [id number] [facility] 2022-09-25 00:00:00 2022-09-25 00:00:00 Orders Only Doctor Unassigned, [place] [facility] 1.2.114 350.1.13.10 4.2.7.2.686 [id number] [facility] 2020-05-23 14:00:00 2020-05-23 14:00:00 Outpatient R [facility] [id number] [facility] 2020-02-20 13:40:12 2020-02-20 14:05:43 Nurse Visit Visit, Zane-Rmchp Nurse Theresa Lord [facility] 1.84.114 350.1.13.10 [id number] [id number] [facility] 2020-02-20 13:30:00 2020-02-20 13:30:00 Outpatient R THERESA LORD [facility] [id number] [facility] 2020-02-20 00:00:00 2020-02-20 00:00:00 Orders Only Doctor Unassigned, [place] [facility] 1.114 350.1.13.10 4.2.7.2.686 [id number] [facility] 2019-11-23 13:00:00 2019-11-23 13:00:00 Outpatient R [facility] [id number] [facility] 2019-11-09 14:15:00 2019-11-09 14:15:00 Outpatient R THERESA LORD [facility] [id number] [facility] 2019-11-09 12:42:08 2019-11-09 12:57:08 Telemedici ne Visit Theresa Lord [facility] ADMINISTRATOR [facility] 1..114 350.1.13.10 [id number] [id number] [facility] 2019-10-07 13:30:00 2019-10-07 13:30:00 Outpatient R THERESA LORD [facility] [id number] [facility] 2019-10-06 08:45:00 2019-10-06 08:45:00 Outpatient R THERESA LORD [facility] [id number] [facility] 2019-10-06 00:00:00 2019-10-06 00:00:00 Telephone Theresa Lord [facility] ADMINISTR[facility] 1..114 350.1.13.10 [id number] [id number] [facility] 2019-09-23 15:04:55 2019-09-23 16:09:38 Office Visit Theresa Lord [facility] ADMINISTRATOR [facility] 1..114 350.1.13.10 4.2.7.2.686 [id number] [facility] 2019-09-23 15:00:00 2019-09-23 15:00:00 Outpatient R THERESA LORD [facility] [id number] [facility] 2019-09-23 00:00:00 2019-09-23 00:00:00 Orders Only Doctor Unassigned, [place] [facility] [id number] 350.1.13.10 4.2.7.2.686 [id number] [facility] 2019-09-01 10:02:22 2019-09-01 10:17:22 Routine Visit Theresa Lord [facility] ADMINISTRATOR [facility] [id number] 350.1.13.10 4.2.7.2.686 [id number] [facility] 2019-09-01 09:30:00 2019-09-01 09:30:00 Outpatient R THERESA LORD [facility] [id number] [facility] 2019-08-18 09:28:08 2019-08-18 09:52:41 Nurse Visit Visit, Ang-Rmchp Nurse Theresa Lord [facility] ADMINISTRATOR [facility] [id number] 350.1.13.10 4.2.7.2.686 [id number] [facility] 2019-08-10 18:34:00 2019-08-13 14:36:00 Hospital Encounter Sabrina Vickers [facility] 1.2840.114 350.1.13.10 4.2.7.2.686 [id number] [facility] 2019-08-03 13:13:09 2019-08-03 13:53:30 Routine Visit Theresa Lord [facility] [employer] ADMINISTRATOR [facility]ILD [facility] 1.2840.114 350.1.13.10 4.2.7.2.686 [id number] 107 [id number] [facility] 2019-07-26 14:51:29 2019-07-26 15:37:05 Routine Visit Theresa Lord [facility] [employer] ADMINISTRATOR [facility] 1.2.840.114 350.1.13.10 4.2.7.2.686 [id number] [facility] 2019-03-22 14:01:38 2019-03-22 14:51:32 Routine Visit Theresa Lord Emily N [facility] [employer] ADMINISTRATOR [facility] 1.2.840.114 350.1.13.10 4.2.7.2.686 [id number] 107 [id number] [facility] 2019-03-22 00:00:00 2019-03-22 00:00:00 Telephone Theresa Lord [facility] [employer] ADMINISTRATOR [facility] 1.2.840.114 350.1.13.10 4.2.7.2.686 [id number] [facility] 2019-02-23 11:21:38 2019-02-23 11:46:18 Bank Guard Visit Ultrasound, Sabrina Prabhakar [facility] [employer] ADMINISTRATOR [facility] 1.2.840.114 350.1.13.10 4.2.7.2.686 [id number] [facility] 2019-02-23 00:00:00 2019-02-23 00:00:00 Abstract Radha Arboleda [facility] [employer] ADMINISTRATOR [facility] 1.2.840.114 350.1.13.10 4.2.7.2.686 [id number] [facility] 2019-02-21 14:37:15 2019-02-21 15:06:20 Routine Visit Radha Arboleda [facility] [employer] ADMINISTRATOR [facility] 1.2.840.114 350.1.13.10 4.2.7.2.686 [id number] [facility] Results Test Description Test Time Test Comments Results Result Co mments [id number] 20:17:00* Test Item Value Reference Range Interpretation Comme nts POCT PREG (test code = 1605) Negative On board controls acceptable with C Line (test code = 3574) Yes POCT PREG LOT # (test code = 3575) POCT PREG TEST DATE ( test code = 3576) [facility] - SYPHILIS [id number] 14:54:00* Test Item Value Reference Range Interpretation Comme nts Syphilis IgG/IgM (test code = 36674-0) Non-reactive Non-reactive FARHAD (test code = FARHAD) Non-reactive - No serologic evidence of T. pallidum infection. Cannot exclude incubating or early syphilis. Submit a second specimen in 2-4 weeks if syphilis is clinically suspected. Equivocal - Further testing to follow. Reactive - Further testing to follow. Lab Interpretation (test code = 98996-3) Normal [facility] HospitalCBC WITH [id number] 10:19:00* Test Item Value Reference Range Interpretation [...] g/dL 31.6-35.1 L RDW-SD (test code = 39596-3) 44.3 fL 39-49.9 RDW-CV (test code = 788-0) 16.9 % 12-15.5 H PLT (test code = 777-3) See_Comment [Automated message] The system which generated this result transmitted reference range: 166 - 358 10*3/?L. The reference range was not used to interpret this result as normal/abnormal. MPV (test code = 52061-8) 12.1 fL 9.5-12.9 NRBC/100 WBC (test code = 4099612955) See_Comment [Automated message] The system which generated this result transmitted reference range: 0.0 - 10.0 /100 WBCs. The reference range was not used to interpret this result as normal/abnormal. NRBC x10^3 (test code = 9610942916) <0.01 See_Comment [Automated message] The system which generated this result transmitted reference range: 10*3/?L. The reference range was not used to interpret this result as normal/abnormal. GRAN MAT (NEUT) % (test code = 770-8) 70.9 % IMM GRAN % (test code = 5764808782) 0.50 % LYMPH % (test code = 736-9) 21.0 % MONO % (test code = 5905-5) 7.2 % EOS % (test code = 713-8) 0.2 % BASO % (test code = 706-2) 0.2 % GRAN MAT x10^3(ANC) (test code = 6431701318) 10.09 10*3/uL 1.88-7.09 H IMM GRAN x10^3 (test code = 4941353872) 0.07 10*3/uL 0-0.06 H LYMPH x10^3 (test code = 731-0) 2.98 10*3/uL 1.32-3.29 MONO x10^3 (test code = 742-7) 1.02 10*3/uL 0.33-0.92 H EOS x10^3 (test code = 711-2) 0.03 10*3/uL 0.03-0.39 BASO x10^3 (test code = 704-7) 0.03 10*3/uL 0.01-0.07 Lab Interpretation (test code = 97762-9) Abnormal [facility] HospitalRHO (D) IMMUNE [id number] 02:49:21* Test Item Value Reference Range Interpretation Comme nts RHIG CANDIDATE? (test code = 5055) No- see comment Patient is not a candidate for RhIg- Patient is Rh Positive.Performed at [facility] Laboratory Services - [facility] Blood [address] [address]Yuvg Free: [phone] No. [id number] [facility] HospitalVENOUS CORD [id number] 23:39:00* Test Item Value Reference Range Interpretation Comme nts VENOUS BASE EXCESS, CORD (test code = 2256336672) mEq/L VENOUS PH, CORD (test code = 6975629790) 7.25-7.45 VENOUS PC02, CORD (test code = 0397509570) See_Comment [Automated messa ge] The system which generated this result transmitted reference range: 27 - 49 mmHg. The reference range was not used to interpret this result as normal/abnormal. VENOUS PO2, CORD (test code = 3769284828) See_Comment [Automated me ssage] The system which generated this result transmitted reference range: 17 - 41 mmHg. The reference range was not used to interpret this result as normal/abnormal. VENOUS BICARBONATE, CORD (test code = 2174048917) See_Comment [Automated messa ge] The system which generated this result transmitted reference range: 12 - 29 mEq/L. The reference range was not used to interpret this result as normal/abnormal. [facility] HospitalARTERIAL CORD [id number] 23:39:00* Test Item Value Reference Range Interpretation Comme nts BASE EXCESS, CORD (test code = 3251405308) mEq/L AC PH, CORD (BEAKER) (test code = 8372076350) 7.18-7.38 PC02, CORD (test code = 6013648381) See_Comment [Automated messa ge] The system which generated this result transmitted reference range: 32 - 66 mmHg. The reference range was not used to interpret this result as normal/abnormal. PO2, CORD (test code = 6419904821) See_Comment [Automated messa ge] The system which generated this result transmitted reference range: 10 - 30 mmHg. The reference range was not used to interpret this result as normal/abnormal. BICARBONATE, CORD (test code = 8994138095) See_Comment [Automated messa ge] The system which generated this result transmitted reference range: 17 - 27 mEq/L. The reference range was not used to interpret this result as normal/abnormal. [facility] HospitalProtein CREAT Ratio Urine Mesvvi0109-72-57 13:03:00* Test Item Value Reference Range Interpretation Comme nts T. PROT U (test code = 2888-6) 12 mg/dL CREAT U (test code = 1001771464) 215.7 mg/dL Protein/Creatinine Ratio Uri ne (test code = 6420753771) 0.0-2.0 [facility] HospitalUrinalysis2020-02-06 12:45:00* Test Item Value Reference Range Interpretation Comme nts APPEARANCE (test code = 4356728342) Hazy Clear A COLOR (test code = 5250292489) Yellow Yellow PH (test code = 4394943992) 4.8-8.0 SP GRAVITY (test code = 9412273939) 1.003-1.030 GLU U QUAL (test code = 8151227378) Normal Normal BLOOD (test code = 4902136114) Negative Negative INTERFERENCE FRO M ASCORBIC ACID MAY CAUSE FALSE NEGATIVE RESULT KETONES (test code = 2766040031) 5 mg/dL Negative A PROTEIN (test code = 2887-8) 30 mg/dL Negative A UROBILIN (test code = 6798819447) 4.0 mg/dL Normal A BILIRUBIN (test code = 1159322333) Negative Negative NITRITE (test code = 5976892547) Negative Negative LEUK REFUGIO (test code = 9289957530) 25/uL Negative A RBC/HPF (test code = 5386218137) See_Comment [Automated messa ge] The system which generated this result transmitted reference range: 0 - 3 HPF. The reference range was not used to interpret this result as normal/abnormal. WBC/HPF (test code = 4932743132) See_Comment H [Automated messa ge] The system which generated this result transmitted reference range: 0 - 5 HPF. The reference range was not used to interpret this result as normal/abnormal. BACTERIA (test code = 3590528801) Moderate Negative A MUCOUS (test code = 0298058772) Marked Negative LPF A SQ EPITH (test code = 5491369197) See_Comment H [Automated messa ge] The system which generated this result transmitted reference range: <=2 HPF. The reference range was not used to interpret this result as normal/abnormal. Lab Interpretation (test code = 01009-9) Abnormal [facility] HospitalHepatitis B Surface Jyaqyev9018-00-06 09:09:00 * Test Item Value Reference Range Interpretation Comme nts HBsAg Semi-Quantitative (darryl t code = 5195-3) Negative Negative [facility] HospitalLactate Pxbsfvegjptnf5273-05-83 08:41:00* Test Item Value Reference Range Interpretation Comme nts LDH (test code = 8894276499) 433 U/L 300-600 Lab Interpretation (test cod e = 13691-8) Normal [facility] HospitalUric Acid Fiaoz9560-09-48 08:11:00* Test Item Value Reference Range Interpretation Comme nts URIC ACID (test code = 5366237299) 4.1 mg/dL 2.9-6 Lab Interpretation (test cod e = 72527-6) Normal [facility] Jwmlucilhu6290-16-00 08:11:00* Test Item Value Reference Range Interpretation Comme nts CREATININE (test code = 6786076576) 0.50 mg/dL 0.5-1.04 eGFR Calculation (Non-) (test code = 5559287474) mL/min/1.73m2 eGFR Calculation () (test code = 6834908834) mL/min/1.73m2 FARHAD (test code = FARHAD) Association [...] or urine or abnormalities in imaging tests). [facility] HospitalSGOT (Asparate Amino Transfer)2019-08-11 08:11:00* Test Item Value Reference Range Interpretation Comme [facility] AST(SGOT) (test code = 8688216358) 22 U/L 13-40 Lab Interpretation (test cod e = 12715-4) Normal [facility] HospitalAlanine Amino Transferase (SGPT)2019-08-11 08:11:00* Test Item Value Reference Range Interpretation Comme nts ALTv (test code = 1742-6) 10 U/L 5-35 Lab Interpretation (test cod e = 06276-4) Normal [facility] HospitalCB WITH [id number] 07:44:00* Test Item Value Reference Range Interpretation Comme nts WBC (test code = 6690-2) See_Comment [Automated [employer] zoidu] The system which generated this result transmitted reference range: 4.30 - 11.10 10*3/?L. The reference range was not used to interpret this result as normal/abnormal. RBC (test code = 789-8) See_Comment [Automated [employer] zoidu] The system which generated this result transmitted [...] g/dL 31.6-35.1 L RDW-SD (test code = 68180-7) 43.4 fL 39-49.9 RDW-CV (test code = 788-0) 17.0 % 12-15.5 H PLT (test code = 777-3) See_Comment [Automated [employer] ge] The system which generated this result transmitted reference range: 166 - 358 10*3/?L. The reference range was not used to interpret this result as normal/abnormal. MPV (test code = 44680-3) 11.5 fL 9.5-12.9 NRBC/100 WBC (test code = 7335861742) See_Comment [Automated [employer] ssage] The system which generated this result transmitted reference range: 0.0 - 10.0 /100 WBCs. The reference range was not used to interpret this result as normal/abnormal. NRBC x10^3 (test code = 3565478799) <0.01 See_Comment [Automated [employer] ge] The system which generated this result transmitted reference range: 10*3/?L. The reference range was not used to interpret this result as normal/abnormal. GRAN MAT (NEUT) % (test code = 770-8) 50.4 % IMM GRAN % (test code = 6040530656) 0.30 % LYMPH % (test code = 736-9) 39.9 % MONO % (test code = 5905-5) 8.3 % EOS % (test code = 713-8) 0.8 % BASO % (test code = 706-2) 0.3 % GRAN MAT x10^3(ANC) (test code = 6993724973) 3.84 10*3/uL 1.88-7.09 IMM GRAN x10^3 (test code = 3827403729) <0.03 0-0.06 LYMPH x10^3 (test code = 731-0) 3.04 10*3/uL 1.32-3.29 MONO x10^3 (test code = 742-7) 0.63 10*3/uL 0.33-0.92 EOS x10^3 (test code = 711-2) 0.06 10*3/uL 0.03-0.39 BASO x10^3 (test code = 704-7) <0.03 0.01-0.07 Lab Interpretation (test code = 83836-4) Abnormal [facility] HospitalType and Screen - ONCE [id number] 04:44:04 * Test Item Value Reference Range Interpretation Comme nts ABO & RH (test code = 20) O POSITIVE Performed at [facility] Laboratory Services - [facility] Blood [place] [address]Toll Free: [phone] No. [id number] IAT (test code = 1185) Negative Performed at [facility] Laboratory Services [facility] Blood [address] Free: [phone] No. [id number] [facility] HospitalPOCT URINALYSIS W SPECIFIC [id number] 19:42:00* Test Item Value Reference Range Interpretation [...] POCT U APPEAR (test code = 3267) [facility] URINALYSIS W SPECIFIC [id number] 19:42:00* Test Item Value Reference Range Interpretation [...] POCT U APPEAR (test code = 3267) [facility] URINALYSIS W SPECIFIC [id number] 21:46:00* Test Item Value Reference Range Interpretation [...] POCT U APPEAR (test code = 3267) [facility] URINALYSIS W SPECIFIC [id number] 19:31:00* Test Item Value Reference Range Interpretation [...] POCT U APPEAR (test code = 3267) [facility] URINALYSIS W SPECIFIC [id number] 19:45:00* Test Item Value Reference Range Interpretation [...] 3267) Lab Interpretation (test cod e = 84909-4) Abnormal [facility] URINALYSIS W SPECIFIC [id number] 19:45:00* Test Item Value Reference Range Interpretation [...] 3267) Lab Interpretation (test cod e = 53427-8) Abnormal [facility]"
== END 2024-02-18 09:47 | disposition home or self-care (01) ==
LOC: ER 08:11
DX: J02.0 Streptococcal pharyngitis (principal); Z11.52 Encounter for screening for COVID-19; J45.909 Unspecified asthma, uncomplicated
CPT/HCPCS: 36415; 87081; 87804 ×2; 71045; 94640; 99284; 87811; J7613; J7644

== ENCOUNTER 2024-04-24 14:40 | Emergency (ER) | payer OTHER ==
--- OUTSIDE RECORDS SUMMARY | 2024-04-24 14:45 | XMS REPORT | Continuity of Care Document ---
Author Name Unknown Address [address] [facility] [address] [place] [address] [facility] thconnect Address [address] [facility] [place] [address] Care Team Providers Care Executive Marketing Assistant Name Role Phone THERESA LORD Primary Care Physician Wilfrid jarrell GC_GCBZW_Nida_S Attending Clinician JOSIE Johnston Attending Clinician Josie Johnston CNM Attending Clinician [phone] Doctor Unassigned, [place] Attending Clinician U THERESA Maciel Attending Clinician Dung Lord WHTheresa GRUBBS Attending Clinician + Visit, Ang-Rmchp Nurse Attending Clinician Jacqueline Vickers MD, Sabrina Bahena Attending Clinician [phone] Ami Paige Attending Clinician [phone] Ultrasound, Antonjosiah Attending Clinician Radha Granados Attending Clinician + [phone] NATANAEL_GCBZW_Nida_S Admitting Clinician Sabrina Mistry MD Admitting Clinician [phone] Payers Payer Name Policy Type Policy Number Effective Date Expirati on Date Source [employer] [place] [id number] 2022 00:00:[address] [facility] [id number] 2019 00:00:00 Problems Condition Name Condition Details Condition Category Status Onset Date Resolution Date Last Treatment Date Treating Clinician Comments Source Nexplanon in place Nexplanon in place Disease Active 5 00:00: 00 [facility] Other general counseling and advice for contracept margie management Other general counseling and advice for contracept margie management Disease Active 5- 00:00: 00 [facility] Routine follow-up Routine follow-up Disease Active 09-01 00:00: 00 [facility] (spontaneo us vaginal delivery) (spontaneo us vaginal delivery) Disease Active 2-07 00:00: 00 [facility] Single live Single live Disease Active 2- 00:00: 00 [facility] History of asthma History of asthma Disease Active 2-07 00:00: 00 [facility] Gestationa l hypertensi on Gestationa l hypertensi on Disease Active 206 00:00: 00 [facility] Gestationa l hypertensi on Gestationa l hypertensi on Disease Active 206 00:00: 00 [facility] Obesity (BMI 30-39.9) Obesity (BMI 30-39.9) Disease Active 2-05 00:00: 00 [facility] 39 weeks gestation of 39 weeks gestation of Disease Active 205 00:00: 00 [facility] Susceptibl e to varicella (non-immun e), currently Susceptibl e to varicella (non-immun e), currently Disease Active 12-20 00:00: 00 Overview: Formattin g of this note might be different from the original. Address pp [facility] Multiparit y Multiparit y Disease Active 12-17 00:00: 00 [facility] Obesity affecting Obesity affecting Disease Active 2016-07 00:00: 00 [facility] Supervisio n of high risk , antepartum Supervisio n of high risk , antepartum Disease Active 2017-1 0-18 00:00: 00 [facility] Allergies, Adverse Reactions, Alerts Allergy Name Allergy Type Status Severity Reaction(s) Onset Date Inactive Date Treating Clinician Comments Source NO KNOWN ALLERGIE S Drug Class Active [facility] Social History Social Habit Start Date Stop Date Quantity Comments Source ASSERTION 2018-11-24 00:00:00 [facility] Exposure to SARS-CoV-2 (event) 2022-09-26 00:00:00 2022-10-06 08:16:00 Not sure [facility] Tobacco use and exposure 2022-10-06 00:00:00 2022-10-06 00:00:00 Smokeless tobacco non-user [facility] Alcohol intake 2022-10-06 00:00:00 2022-10-06 00:00:00 Current non-drinker of alcohol (finding) [facility] Alcohol Comment 2018-12-17 00:00:00 2018-12-17 00:00:00 last sexual intercourse 12/09/2018 [facility] Sex Assigned At 1998 00:00:00 2000 00:00:00 [facility] Smoking Status Start Date Stop Date Source Never smoked tobacco [facility] Medications Ordered Medication Name Filled Medication Name Start Date Stop Date Current Medication? Ordering Clinician Indication Dosage Frequency Signature (SIG) Comments Components Source etonogestre l (NEXPLANON) implant 68 mg 09-22 21:45: 00 09-22 20:45 :00 No [id number] 68mg [facility] varicella virus vaccine live (VARIVAX (PF)) injection 0.5 mL 08-13 13:26: 45 Yes .5mL 0.5 mL, Subcutaneo us, ONCE-PRIOR TO DISCHARGE, 1 dose, Starting 08/13/19 at 0726, Until Discontinu ed, Routine, Give vaccine prior to discharge [facility] ferrous sulfate tablet 325 mg 08-12 15:00: 00 Yes 325mg 325 mg, Oral, DAILY, First dose on 08/12/19 at 0900, Until Discontinu ed, Routine [facility] ibuprofen (IBU) tablet 600 mg 08-12 02:45: 55 Yes 600mg 600 mg, Oral, Q6HPRN, Starting Zeina 08/11/19 at 2044, Until Discontinu ed, Routine, Pain (scale 4-6) [facility] acetaminoph en (TYLENOL) tablet 650 mg 08-12 02:45: 55 Yes 650mg 650 mg, Oral, Q6HPRN, Starting Zeina 08/11/19 at 2044, Until Discontinu ed, Routine, Pain (scale 1-3) [facility] diphenhydrA MINE (BENADRYL) tablet 25 mg 08-12 02:45: 55 Yes 25mg 25 mg, Oral, Q6HPRN, Starting Zeina 08/11/19 at 2044, Until Discontinu ed, Routine, Sleep, Itching [facility] ondansetron (ZOFRAN (PF)) injection 4 mg 08-12 02:45: 55 Yes 4mg 4 mg, Slow IV Push, Q8HPRN, Starting Zeina 08/11/19 at 2044, Until Discontinu ed, Routine, Nausea and Vomiting (N/V) [facility] simethicone (GAS RELIEF (SIMETHICON E)) chewable tablet 160 mg 08-12 02:45: 55 Yes 160mg 160 mg, Oral, PC+HSPRN, Starting Zeina 08/11/19 at 2044, Until Discontinu ed, Routine, Gas [facility] docusate calcium (SURFAK) capsule 240 mg 08-12 02:45: 55 Yes 240mg 240 mg, Oral, QDAILYPRN, Starting Zeina 08/11/19 at 2044, Until Discontinu ed, Routine, Constipati on [facility] magnesium hydroxide (MILK OF MAGNESIA) 400 mg/5 mL suspension 30 mL 08-12 02:45: 55 Yes 30mL 30 mL, Oral, QDAILYPRN, Starting Zeina 08/11/19 at 2044, Until Discontinu ed, Routine, Constipati on [facility] benzocaine- menthol (DERMOPLAST ) 20-0.5 % topical spray 08-12 02:45: 55 Yes Topical, PRN, Starting Zeina 08/11/19 at 2045, Until Discontinu ed, Routine, Perineum discomfort [facility] docusate calcium 240 mg capsule 08-12 00:00: 00 09-25 00:00 :00 No [id number] 240mg Take 1 capsule by mouth once daily as needed for Constipati on. [facility] ibuprofen 600 mg tablet 08-12 00:00: 09-25 00:00 :00 No [id number] 600mg Take 1 tablet by mouth every 6 (six) hours as needed (Pain). Take with food or milk. [facility] Iron Fum & P-FA-Vit B & C No.9 (INTEGRA PLUS) 125 mg iron- 1 mg Cap 08-12 00:00: 00 09-25 00:00 :00 No [id number] 1{capsu le} Take 1 capsule by mouth daily. [facility] amnioinfusi on IV infusion via GRAVITY [...] until the liter is complete.& nbsp;&nbsp ;Notify News Anchor if uterine resting tone exceeds 25 mmHg at any time during the amnioinfus ion. Obst etrics (KARINA) Aminoinfus ion Orders
[facility] lactated ringers IV infusion 500 mL 08-11 17:45: 00 08-11 16:45 :00 No 500mL at 999 mL/hr, 500 mL, IV Infusion, ONCE, 1 dose, Zeina 08/11/19 at 1145, Routine [facility] ondansetron (ZOFRAN (PF)) injection 4 mg 08-11 08:15: 00 08-11 07:12 :00 No 4mg 4 mg, Slow IV Push, ONCE, 1 dose, Zeina 08/11/19 at 0215, Routine [facility] D5W-LR IV infusion 1,000 mL 08-11 04:00: 00 08-12 02:46 :09 No 1000mL at 125 mL/hr, IV Infusion, CONTINUOUS , Starting 08/10/19 at 2200, Until Zeina 08/11/19 at 2046, Routine [facility] LR 1000 mL + oxytocin 20 units IV Solution 08-11 03:55: 08 08-12 02:46 :09 No 2mU/min 2 julio-unit s/min (6 mL/hr), at 6 mL/hr, IV Infusion, TITRATE, Starting 08/10/19 at 2155, Until Zeina 08/11/19 at 2045, RADHA, Oxytocin Induction / Augmentati on of Labor. [facility] sodium citrate-cit jaycee acid (BICITRA) 500-334 mg/5 mL solution 30 mL 08-11 03:51: 29 08-11 16:38 :00 No 30mL 30 mL, Oral, PRE-PROCED URE ONCE, 1 dose, Starting Thu08/10/19 at 2151, Until Discontinu ed, Routine, Surgery/Pr ocedure [facility] ferrous sulfate 325 mg (65 mg iron) tablet 12-10 00:00: 00 08-12 00:00 :00 No [id number] 325mg Take 1 tablet by mouth 2 (two) times daily. [facility] ascorbic acid, vitamin C, 500 mg tablet 12-10 00:00: 00 08-12 00:00 :00 No [id number] 500mg Take 1 tablet by mouth 3 (three) times daily. [facility] doxylamine- pyridoxine, vit B6, (DICLEGIS) 10-10 mg per tablet 2016-07 00:00: 00 08-12 00:00 :00 No [id number] 2{tbl} Take 2 tablets by mouth at bedtime. [facility] PNV 67-iron ps-folate no.1-dha (VITAFOL ULTRA) 29 mg iron- 1 mg-200 mg Cap 2017-1 0-18 00:00: 00 08-12 00:00 :00 No [id number] 1{each} Take 1 Each by mouth daily. [facility] Vital Signs Vital Name Observation Time Observation Value Comments S salvatore Systolic blood pressure 2022-10-06 13:30:00 113 mm[Hg] [facility] Diastolic blood pressure 2022-10-06 13:30:00 73 mm[Hg] [facility] Heart rate 2022-10-06 13:30:00 77 /min [facility] Body temperature 2022-10-06 13:30:00 36.17 Isa [facility] Respiratory rate 2022-10-06 13:30:00 18 /min [facility] Body height 2022-10-06 13:30:00 162.6 cm [facility] Body weight 2022-10-06 13:30:00 106.051 kg [facility] BMI 2022-10-06 13:30:00 40.13 kg/m2 [facility] Systolic blood pressure 2022-09-25 18:35:00 125 mm[Hg] [facility] Diastolic blood pressure 2022-09-25 18:35:00 84 mm[Hg] [facility] Heart rate 2022-09-25 18:35:00 110 /min [facility] Body temperature 2022-09-25 18:35:00 36.78 Isa [facility] Respiratory rate 2022-09-25 18:35:00 20 /min [facility] Body height 2022-09-25 18:35:00 162.6 cm [facility] Body weight 2022-09-25 18:35:00 103.964 kg [facility] BMI 2022-09-25 18:35:00 39.34 kg/m2 [facility] Systolic blood pressure 2020-02-20 18:45:00 109 mm[Hg] [facility] Diastolic blood pressure 2020-02-20 18:45:00 73 mm[Hg] [facility] Heart rate 2020-02-20 18:45:00 77 /min [facility] Body temperature 2020-02-20 18:45:00 36.89 Isa [facility] Respiratory rate 2020-02-20 18:45:00 16 /min [facility] Body height 2020-02-20 18:45:00 162.6 cm [facility] weight 2020-02-20 18:45:00 91.768 [facility] BMI 2020-02-20 18:45:00 34.73 kg/m2 [facility] Systolic blood pressure 2019-09-23 20:15:00 125 mm[Hg] [facility] Diastolic blood pressure 2019-09-23 20:15:00 77 mm[Hg] [facility] Heart rate 2019-09-23 20:15:00 78 /min [facility] Body temperature 2019-09-23 20:15:00 37.11 Isa [facility] Respiratory rate 2019-09-23 20:15:00 16 /min [facility] Body height 2019-09-23 20:15:00 162.6 cm [facility] Body weight 2019-09-23 20:15:00 85.475 kg [facility] BMI 2019-09-23 20:15:00 32.35 kg/m2 [facility] Systolic blood pressure 2019-09-01 16:15:00 114 mm[Hg] [facility] Diastolic blood pressure 2019-09-01 16:15:00 68 mm[Hg] [facility] Heart rate 2019-09-01 16:15:00 74 /min [facility] Body temperature 2019-09-01 16:15:00 36.72 Isa [facility] Respiratory rate 2019-09-01 16:15:00 16 /min [facility] Body height 2019-09-01 16:15:00 162.6 cm [facility] Body weight 2019-09-01 16:15:00 85.333 kg Univ ersity [facility] BMI 2019-09-01 16:15:00 32.29 kg/m2 [facility] Systolic blood pressure 2019-08-18 21:56:00 124 mm[Hg] [facility] Diastolic blood pressure 2019-08-18 21:56:00 80 mm[Hg] [facility] Heart rate 2019-08-18 21:56:00 92 /min [facility] Body temperature 2019-08-18 21:56:00 37.22 Isa [facility] Respiratory rate 2019-08-18 21:56:00 16 /min [facility] Body height 2019-08-18 21:56:00 160 cm [facility] Body weight 2019-08-18 21:56:00 86.592 kg [facility] BMI 2019-08-18 21:56:00 33.82 kg/m2 [facility] Systolic blood pressure 2019-08-13 14:00:00 119 mm[Hg] [facility] Diastolic blood pressure 2019-08-13 14:00:00 76 mm[Hg] [facility] Heart rate 2019-08-13 14:00:00 74 /min [facility] Body temperature 2019-08-13 14:00:00 37 Isa [facility] Respiratory rate 2019-08-13 14:00:00 18 /min [facility] Oxygen saturation in Arterial blood by Pulse oximetry 2019-08-13 14:00:00 99 /min [facility] Body height 2019-08-11 02:00:00 162 cm [facility] Body weight 2019-08-11 02:00:00 94.348 kg [facility] BMI 2019-08-11 02:00:00 35.95 kg/m2 [facility] Systolic blood pressure 2019-08-03 19:39:00 116 mm[Hg] [facility] Diastolic blood pressure 2019-08-03 19:39:00 75 mm[Hg] [facility] Heart rate 2019-08-03 19:39:00 116 /min [facility] Body temperature 2019-08-03 19:39:00 37 Isa [facility] Respiratory rate 2019-08-03 19:39:00 16 /min [facility] Body height 2019-08-03 19:39:00 165.1 cm [facility] Body weight 2019-08-03 19:39:00 95.369 kg [facility] BMI 2019-08-03 19:39:00 34.99 kg/m2 [facility] Systolic blood pressure 2019-07-26 21:14:00 134 mm[Hg] [facility] Diastolic blood pressure 2019-07-26 21:14:00 87 mm[Hg] [facility] Heart rate 2019-07-26 21:14:00 92 /min [facility] Body temperature 2019-07-26 21:14:00 37.72 Isa [facility] Respiratory rate 2019-07-26 21:14:00 16 /min [facility] Body height 2019-07-26 21:14:00 165.1 cm [facility] Body weight 2019-07-26 21:14:00 96.389 kg [facility] BMI 2019-07-26 21:14:00 35.36 kg/m2 [facility] Systolic blood pressure 2019-03-22 19:25:00 113 mm[Hg] [facility] Diastolic blood pressure 2019-03-22 19:25:00 72 mm[Hg] [facility] Heart rate 2019-03-22 19:25:00 93 /min [facility] Body temperature 2019-03-22 19:25:00 36.94 Isa [facility] Respiratory rate 2019-03-22 19:25:00 16 /min [facility] Body height 2019-03-22 19:25:00 160 cm [facility] Body weight 2019-03-22 19:25:00 93.441 kg [facility] BMI 2019-03-22 19:25:00 36.49 kg/m2 [facility] Systolic blood pressure 2019-02-21 19:44:00 134 mm[Hg] [facility] Diastolic blood pressure 2019-02-21 19:44:00 77 mm[Hg] [facility] Heart rate 2019-02-21 19:44:00 101 /min [facility] Body temperature 2019-02-21 19:44:00 37 Isa [facility] Respiratory rate 2019-02-21 19:44:00 16 /min [facility] Body height 2019-02-21 19:44:00 160 cm [facility] Body weight 2019-02-21 19:44:00 94.121 kg [facility] BMI 2019-02-21 19:44:00 36.76 kg/m2 [facility] Procedures Procedure Date / Time Performed Performing Clinician Source DISCLOSURE AND CONSENT, MEDICAL AND SURGICAL PROCEDURES 2022-10-06 05:01:00 Doctor Unassigned, [place] [facility] GARDASIL 9 (HPV 9V) VACCINE 2022-09-25 18:54:20 Theresa Lord [facility] ASSIGNMENT OF BENEFITS 2022-09-25 18:15:42 Jose Cruz florence Unassigned, [place] [facility] GARDASIL 9 (HPV 9V) VACCINE 2020-02-20 19:16:37 Theresa Lord [facility] ASSIGNMENT OF BENEFITS 2020-02-20 18:38:40 Jose Cruz florence Unassigned, [place] [facility] GARDASIL 9 (HPV 9V) VACCINE 2019-09-23 21:08:55 Theresa Lord [facility] POCT TEST 2019-09-23 20:16:00 Jeet Lord [facility] CONSENT FOR CONTRACEPTION 2019-09-23 05:01:00 Doctor Unassigned, [place] [facility] CBC WITH DIFFERENTIAL 2019-08-12 09:42:00 Tian Alberto [facility] VENOUS CORD GAS 2019-08-11 23:27:00 Artem Carranza [facility] URINALYSIS 2019-08-11 12:19:00 [facility] PROTEIN CREAT RATIO URINE RANDOM 2019-08-11 12:19:00 Pauly Hill [facility] LACTATE DEHYDROGENASE 2019-08-11 07:31:00 Nell Hill [facility] CBC WITH DIFFERENTIAL 2019-08-11 07:31:00 Nell Hill [facility] SGOT (ASPARTATE AMINO TRANSFER) 2019-08-11 04:05:00 Pauly Hill [facility] CREATININE 2019-08-11 04:05:00 [facility] ALANINE AMINO TRANSFERASE(SGPT 2019-08-11 04:05:00 Pauly Hill [facility] URIC ACID 2019-08-11 04:05:00 [facility] HEPATITIS B SURFACE ANTIGEN 2019-08-11 04:05:00 Pedro Carranza [facility] GALV ONLY - SYPHILIS IGG/IGM 2019-08-11 04:05:00 Pedro Carranza [facility] HB ABO GROUPING 2019-08-11 04:04:00 Artem Carranza [facility] RHO (D) IMMUNE GLOBULIN 2019-08-11 04:04:00 Nell Alberto [facility] POCT URINALYSIS 2019-08-03 19:42:00 Theresa Lord [facility] POCT URINALYSIS 2019-07-26 21:46:00 Theresa Lord [facility] POCT URINALYSIS 2019-03-22 19:31:00 Theresa Lord [facility] POCT URINALYSIS 2019-02-21 19:44:00 Theresa Lord [facility] Encounters Start Date/Time End Date/Time Encounter Type Admission Type Attending [facility] Care Facility Care Department Encounter ID Source 2023-05-02 00:00:00 2023-05-02 00:00:00 Outpatient GC_GCBZW_Ka henny_S [facility] [id number] [facility] 2022-10-06 08:30:00 2022-10-06 08:59:30 Outpatient JOSIE BABCOCK [facility] [id number] [facility] 2022-10-06 08:30:00 2022-10-06 08:59:30 Office Visit Josie Torres [facility] SQL DBA [facility] 1..114 350.1.13.10 4.2.7.2.686 [id number] [facility] 2022-10-06 00:00:00 2022-10-06 00:00:00 Orders Only Doctor Unassigned, [place] [facility] [id number] 350.1.13.10 4.2.7.2.686 [id number] [facility] 2022-09-25 13:15:00 2022-09-25 14:35:28 Outpatient R THERESA LORD [facility] [id number] [facility] 2022-09-25 13:15:00 2022-09-25 14:35:28 Office Visit Theresa Lord [facility] 1.84.114 350.1.13.10 4.2.7.2.686 [id number] [facility] 2022-09-25 00:00:00 2022-09-25 00:00:00 Orders Only Doctor Unassigned, [place] [facility] 1.2.114 350.1.13.10 4.2.7.2.686 [id number] [facility] 2020-05-23 14:00:00 2020-05-23 14:00:00 Outpatient R [facility] [id number] [facility] 2020-02-20 13:40:12 2020-02-20 14:05:43 Nurse Visit Visit, Zane-Rmchp Nurse Theresa Lord [facility] 1.84.114 350.1.13.10 4.2.7.2.686 [id number] [facility] 2020-02-20 13:30:00 2020-02-20 13:30:00 Outpatient R THERESA LORD [facility] [id number] [facility] 2020-02-20 00:00:00 2020-02-20 00:00:00 Orders Only Doctor Unassigned, [place] [facility] 1.114 350.1.13.10 4.2.7.2.686 [id number] [facility] 2019-11-23 13:00:00 2019-11-23 13:00:00 Outpatient R [facility] [id number] [facility] 2019-11-09 14:15:00 2019-11-09 14:15:00 Outpatient R THERESA LORD [facility] [id number] [facility] 2019-11-09 12:42:08 2019-11-09 12:57:08 Telemedici ne Visit Theresa Lord [facility] SQL DBA [facility] CHILD [facility] 1..114 350.1.13.10 4.2.7.2.686 [id number] [facility] 2019-10-07 13:30:00 2019-10-07 13:30:00 Outpatient R THERESA LORD [facility] [id number] [facility] 2019-10-06 08:45:00 2019-10-06 08:45:00 Outpatient R THERESA LORD [facility] [id number] [facility] 2019-10-06 00:00:00 2019-10-06 00:00:00 Telephone Theresa Lord [facility] SQL DBA [facility] CHILD [facility] 1..114 350.1.13.10 4.2.7.2.686 [id number] 107 [id number] [facility] 2019-09-23 15:04:55 2019-09-23 16:09:38 Office Visit Theresa Lord [facility] SQL DBA [facility] CHILD [facility] 1..114 350.1.13.10 4.2.7.2.686 [id number] [facility] 2019-09-23 15:00:00 2019-09-23 15:00:00 Outpatient R THERESA LORD [facility] [id number] [facility] 2019-09-23 00:00:00 2019-09-23 00:00:00 Orders Only Doctor Unassigned, [place] [facility] [id number] 350.1.13.10 4.2.7.2.686 [id number] [facility] 2019-09-01 10:02:22 2019-09-01 10:17:22 Routine Visit Theresa Lord [facility] SQL DBA [facility] CHILD [facility] 1.2840.114 350.1.13.10 4.2.7.2.686 [id number] [facility] 2019-09-01 09:30:00 2019-09-01 09:30:00 Outpatient R THERESA LORD [facility] [id number] [facility] 2019-08-18 09:28:08 2019-08-18 09:52:41 Nurse Visit Visit, Ang-Rmchp Nurse Theresa Lord [facility] SQL DBA [facility] CHILD [facility] 1.840.114 350.1.13.10 4.2.7.2.686 [id number] [facility] 2019-08-10 18:34:00 2019-08-13 14:36:00 Hospital Encounter Sabrina Vickers [facility] 1.2840.114 350.1.13.10 4.2.7.2.686 [id number] [facility] 2019-08-03 13:13:09 2019-08-03 13:53:30 Routine Visit Theresa Lord [facility] SQL DBA [facility] CHILD [facility] 1.2840.114 350.1.13.10 4.2.7.2.686 [id number] [facility] 2019-07-26 14:51:29 2019-07-26 15:37:05 Routine Visit Theresa Lord [facility] SQL DBA [facility] & CHILD [facility] [id number] 350.1.13.10 4.2.7.2.686 [id number] [facility] 2019-03-22 14:01:38 2019-03-22 14:51:32 Routine Visit Theresa Lord Emily N [facility] SQL DBA [facility] & CHILD [facility] [id number] 350.1.13.10 4.2.7.2.686 [id number] 107 [id number] [facility] [facility] 2019-03-22 00:00:00 2019-03-22 00:00:00 Telephone Theresa Lord [facility] SQL DBA [facility] MATERNAL & CHILD [facility] [id number] [facility] 2019-02-23 11:21:38 2019-02-23 11:46:18 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 Ultrasound, Sabrina Prabhakar [facility] SQL D[employer] [facility] MATERNAL & CHILD [facility] [id number] [facility] 2019-02-23 00:00:00 2019-02-23 00:00:00 Abstract Radha Arboleda [facility] SQL D[employer] [facility] MATERNAL & CHILD [facility] [id number] [facility] 2019-02-21 14:37:15 2019-02-21 15:06:20 Routine Visit Radha Arboleda [facility] SQL D[employer] [facility] MATERNAL & [facility] [id number] [facility] Results Test Description Test Time Test Comments Results Result Co mments Source [facility] [id number] 20:17:00* Test Item Value Reference Range Interpretation Comme nts POCT PREG (test code = 1605) Negative On board controls acceptable with C Line (test code = 3574) Yes POCT PREG LOT # (test code = 3575) POCT PREG TEST DATE ( test code = 3576) [facility]GAL[facility] ONLY - SYPHILIS [id number] 14:54:00* Test Item Value Reference Range Interpretation Comme nts Syphilis IgG/IgM (test code = 39438-8) Non-reactive Non-reactive FARHAD (test code = FARHAD) Non-reactive - No serologic evidence of T. pallidum infection. Cannot exclude incubating or early syphilis. Submit a second specimen in 2-4 weeks if syphilis is clinically suspected. Equivocal - Further testing to follow. Reactive - Further testing to follow. Lab Interpretation (test code = 04262-9) Normal [facility]CBC WITH [id number] 10:19:00* Test Item Value Reference Range Interpretation [...] g/dL 31.6-35.1 L RDW-SD (test code = 93073-9) 44.3 fL 39-49.9 RDW-CV (test code = 788-0) 16.9 % 12-15.5 H PLT (test code = 777-3) See_Comment [Automated message] The system which generated this result transmitted reference range: 166 - 358 10*3/?L. The reference range was not used to interpret this result as normal/abnormal. MPV (test code = 94593-0) 12.1 fL 9.5-12.9 NRBC/100 WBC (test code = 8733812827) See_Comment [Automated message] The system which generated this result transmitted reference range: 0.0 - 10.0 /100 WBCs. The reference range was not used to interpret this result as normal/abnormal. NRBC x10^3 (test code = 2617541063) <0.01 See_Comment [Automated message] The system which generated this result transmitted reference range: 10*3/?L. The reference range was not used to interpret this result as normal/abnormal. GRAN MAT (NEUT) % (test code = 770-8) 70.9 % IMM GRAN % (test code = 2189450467) 0.50 % LYMPH % (test code = 736-9) 21.0 % MONO % (test code = 5905-5) 7.2 % EOS % (test code = 713-8) 0.2 % BASO % (test code = 706-2) 0.2 % GRAN MAT x10^3(ANC) (test code = 5630407118) 10.09 10*3/uL 1.88-7.09 H IMM GRAN x10^3 (test code = 5068605881) 0.07 10*3/uL 0-0.06 H LYMPH x10^3 (test code = 731-0) 2.98 10*3/uL 1.32-3.29 MONO x10^3 (test code = 742-7) 1.02 10*3/uL 0.33-0.92 H EOS x10^3 (test code = 711-2) 0.03 10*3/uL 0.03-0.39 BASO x10^3 (test code = 704-7) 0.03 10*3/uL 0.01-0.07 Lab Interpretation (test code = 31401-4) Abnormal [facility]RHO (D) IMMUNE [id number] 02:49:21* Test Item Value Reference Range Interpretation Comme nts RHIG CANDIDATE? (test code = 5055) No- see comment Patient is not a candidate for RhIg- Patient is Rh Positive.Performed at [facility] Laboratory Services - [facility] Blood [address] [address]Tfrc Free: [phone] No. [id number] [facility] CampusVENOUS CORD [id number] 23:39:00* Test Item Value Reference Range Interpretation Comme nts VENOUS BASE EXCESS, CORD (test code = 4638483510) mEq/L VENOUS PH, CORD (test code = 4877966018) 7.25-7.45 VENOUS PC02, CORD (test code = 8015505983) See_Comment [Automated messa ge] The system which generated this result transmitted reference range: 27 - 49 mmHg. The reference range was not used to interpret this result as normal/abnormal. VENOUS PO2, CORD (test code = 0270286003) See_Comment [Automated me ssage] The system which generated this result transmitted reference range: 17 - 41 mmHg. The reference range was not used to interpret this result as normal/abnormal. VENOUS BICARBONATE, CORD (test code = 8639681370) See_Comment [Automated messa ge] The system which generated this result transmitted reference range: 12 - 29 mEq/L. The reference range was not used to interpret this result as normal/abnormal. [facility] CampusARTERIAL CORD [id number] 23:39:00* Test Item Value Reference Range Interpretation Comme nts BASE EXCESS, CORD (test code = 5018302988) mEq/L AC PH, CORD (BEAKER) (test code = 8933371165) 7.18-7.38 PC02, CORD (test code = 5040110482) See_Comment [Automated messa ge] The system which generated this result transmitted reference range: 32 - 66 mmHg. The reference range was not used to interpret this result as normal/abnormal. PO2, CORD (test code = 0569644457) See_Comment [Automated messa ge] The system which generated this result transmitted reference range: 10 - 30 mmHg. The reference range was not used to interpret this result as normal/abnormal. BICARBONATE, CORD (test code = 9069819289) See_Comment [Automated messa ge] The system which generated this result transmitted reference range: 17 - 27 mEq/L. The reference range was not used to interpret this result as normal/abnormal. [facility] CampusProtein CREAT Ratio Urine [id number] 13:03:00* Test Item Value Reference Range Interpretation Comme nts T. PROT U (test code = 2888-6) 12 mg/dL CREAT U (test code = 8546847408) 215.7 mg/dL Protein/Creatinine Ratio Uri ne (test code = 0305184647) 0.0-2.0 [facility] CampusUrinalysis2020-02-06 12:45:00* Test Item Value Reference Range Interpretation Comme nts APPEARANCE (test code = 4568092868) Hazy Clear A COLOR (test code = 2442178119) Yellow Yellow PH (test code = 0603759785) 4.8-8.0 SP GRAVITY (test code = 3688647600) 1.003-1.030 GLU U QUAL (test code = 5766680386) Normal Normal BLOOD (test code = 1391770657) Negative Negative INTERFERENCE FRO M ASCORBIC ACID MAY CAUSE FALSE NEGATIVE RESULT KETONES (test code = 1254560056) 5 mg/dL Negative A PROTEIN (test code = 2887-8) 30 mg/dL Negative A UROBILIN (test code = 9304548382) 4.0 mg/dL Normal A BILIRUBIN (test code = 2226289985) Negative Negative NITRITE (test code = 4319878418) Negative Negative LEUK REFUGIO (test code = 0110374281) 25/uL Negative A RBC/HPF (test code = 6727279057) See_Comment [Automated messa ge] The system which generated this result transmitted reference range: 0 - 3 HPF. The reference range was not used to interpret this result as normal/abnormal. WBC/HPF (test code = 0041021205) See_Comment H [Automated messa ge] The system which generated this result transmitted reference range: 0 - 5 HPF. The reference range was not used to interpret this result as normal/abnormal. BACTERIA (test code = 1559159170) Moderate Negative A MUCOUS (test code = 0711321703) Marked Negative LPF A SQ EPITH (test code = 7058259178) See_Comment H [Automated messa ge] The system which generated this result transmitted reference range: <=2 HPF. The reference range was not used to interpret this result as normal/abnormal. Lab Interpretation (test code = 49010-8) Abnormal [facility] CampusHepatitis B Surface [id number] 09:09:00 * Test Item Value Reference Range Interpretation Comme nts HBsAg Semi-Quantitative (darryl t code = 5195-3) Negative Negative [facility] CampusLactate Iovlpyvctzpko2856-31-24 08:41:00* Test Item Value Reference Range Interpretation Comme nts LDH (test code = 6364517713) 433 U/L 300-600 Lab Interpretation (test cod e = 12578-9) Normal [facility] CampusUric Acid [id number] 08:11:00* Test Item Value Reference Range Interpretation Comme nts URIC ACID (test code = 5721059286) 4.1 mg/dL 2.9-6 Lab Interpretation (test cod e = 35323-3) Normal [facility] [id number] 08:11:00* Test Item Value Reference Range Interpretation Comme nts CREATININE (test code = 1455466787) 0.50 mg/dL 0.5-1.04 eGFR Calculation (Non-) (test code = 6134914829) mL/min/1.73m2 eGFR Calculation () (test code = 0895731328) mL/min/1.73m2 FARHAD (test code = FARHAD) Association [...] or urine or abnormalities in imaging tests). [facility] CampusSGOT (Asparate Amino Transfer)2019-08-11 08:11:00* Test Item Value Reference Range Interpretation Comme [facility] AST(SGOT) (test code = 9813291657) 22 U/L 13-40 Lab Interpretation (test cod e = 92758-7) Normal [facility] CampusAlanine Amino Transferase (SGPT)2019-08-11 08:11:00* Test Item Value Reference Range Interpretation Comme nts ALTv (test code = 1742-6) 10 U/L 5-35 Lab Interpretation (test cod e = 09380-2) Normal [facility] CampusCB WITH [id number] 07:44:00* Test Item Value Reference Range Interpretation Comme nts WBC (test code = 6690-2) See_Comment [Automated [employer]] The system which generated this result transmitted reference range: 4.30 - 11.10 10*3/?L. The reference range was not used to interpret this result as normal/abnormal. RBC (test code = 789-8) See_Comment [Automated [employer]] The system which generated this result transmitted [...] g/dL 31.6-35.1 L RDW-SD (test code = 48605-3) 43.4 fL 39-49.9 RDW-CV (test code = 788-0) 17.0 % 12-15.5 H PLT (test code = 777-3) See_Comment [Automated [employer] ge] The system which generated this result transmitted reference range: 166 - 358 10*3/?L. The reference range was not used to interpret this result as normal/abnormal. MPV (test code = 97853-9) 11.5 fL 9.5-12.9 NRBC/100 WBC (test code = 7548221191) See_Comment [Automated [employer] ssage] The system which generated this result transmitted reference range: 0.0 - 10.0 /100 WBCs. The reference range was not used to interpret this result as normal/abnormal. NRBC x10^3 (test code = 0967544860) <0.01 See_Comment [Automated [employer] ge] The system which generated this result transmitted reference range: 10*3/?L. The reference range was not used to interpret this result as normal/abnormal. GRAN MAT (NEUT) % (test code = 770-8) 50.4 % IMM GRAN % (test code = 1771198966) 0.30 % LYMPH % (test code = 736-9) 39.9 % MONO % (test code = 5905-5) 8.3 % EOS % (test code = 713-8) 0.8 % BASO % (test code = 706-2) 0.3 % GRAN MAT x10^3(ANC) (test code = 0758022806) 3.84 10*3/uL 1.88-7.09 IMM GRAN x10^3 (test code = 5662818961) <0.03 0-0.06 LYMPH x10^3 (test code = 731-0) 3.04 10*3/uL 1.32-3.29 MONO x10^3 (test code = 742-7) 0.63 10*3/uL 0.33-0.92 EOS x10^3 (test code = 711-2) 0.06 10*3/uL 0.03-0.39 BASO x10^3 (test code = 704-7) <0.03 0.01-0.07 Lab Interpretation (test code = 07462-6) Abnormal [facility] CampusType and Screen - ONCE [id number] 04:44:04 * Test Item Value Reference Range Interpretation Comme nts ABO & RH (test code = 20) O POSITIVE Performed at [facility] Laboratory Services - [facility] Blood [place] [address]Toll Free: [phone] No. [id number] IAT (test code = 1185) Negative Performed at [facility] Laboratory Services [facility] Blood [address] Free: [phone] No. [id number] [facility] CampusPOCT URINALYSIS W SPECIFIC [id number] 19:42:00* Test Item Value Reference Range Interpretation [...] POCT U APPEAR (test code = 3267) [facility] URINALYSIS W SPECIFIC [id number] 19:42:00* Test Item Value Reference Range Interpretation [...] POCT U APPEAR (test code = 3267) [facility] URINALYSIS W SPECIFIC [id number] 21:46:00* Test Item Value Reference Range Interpretation [...] POCT U APPEAR (test code = 3267) [facility] URINALYSIS W SPECIFIC [id number] 19:31:00* Test Item Value Reference Range Interpretation [...] POCT U APPEAR (test code = 3267) [facility] URINALYSIS W SPECIFIC [id number] 19:45:00* Test Item Value Reference Range Interpretation [...] 3267) Lab Interpretation (test cod e = 75858-0) Abnormal [facility] URINALYSIS W SPECIFIC [id number] 19:45:00* Test Item Value Reference Range Interpretation [...] 3267) Lab Interpretation (test cod e = 44407-9) Abnormal [facility]"
[2024-04-24 15:12] LABS: Specific Gravity 1.025 (1.005-1.030); Urine Bilirubin NEGATIVE (Negative); Urine Blood 3+ (OVER) (Negative); Urine Clarity Extremely Turbid (Clear); Urine Color Yellow (Yellow); Urine Glucose NEGATIVE (Negative); Urine Ketones NEGATIVE (Negative); Urine Micro Reflex YN NO BILL NO MICROSCOPIC; Urine Nitrite NEGATIVE (Negative); Urine Protein 1+ (Negative); Urine Urobilinogen Normal (Normal); Urine pH 5.5 (5.0-7.0)
[2024-04-24 15:16] LABS: Urine Bacteria None Seen /HPF (<20); Urine Crystals Unidentified Few /HPF (None Seen); Urine Culture Reflex Order REFLEXED; Urine Mucus Slight /HPF (None Seen); Urine RBC >50 /HPF (None Seen); Urine WBC >50 /HPF (<5); Urine WBC Clump Few /HPF (None Seen); Urine Yeast (Budding) Trace /HPF (None Seen)
--- NOTE | 2024-04-24 15:16 | ER ---
Nurse's Notes [facility] Name: Emily Rahman Age: 24 yrs Sex: Female : 2000 Arrival Date: 04/24/2024 Time: 14:40 Bed 13 Private MD: Diagnosis: UTI/ Urinary tract infection, site not specified Presentation: 04/24 14:46 Chief complaint: Patient states: urinary urgency and burning that began 1 week ago. aa5 Coronavirus screen: At this time, the client does not indicate any symptoms associated with coronavirus-19. Ebola Screen: Patient denies travel to an Ebola-affected area in the 21 days before illness onset. Initial Sepsis Screen: Does the patient meet any 2 criteria? No. Patient's initial sepsis screen is negative. Does the patient have a suspected source of infection? No. Patient's initial sepsis screen is negative. Risk Assessment: Do you want to hurt yourself or someone else? Patient reports no desire to harm self or others. Onset of symptoms was April 2024. 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 - Infectious Disease History:: Denies. - Social history:: Smoking status: Reported history of juuling and/or vaping. Screenin:07 [facility] ED Fall Risk Assessment (Adult) History of falling in the last 3 months, me1 including since admission No falls in past 3 months (0 pts) Confusion or Disorientation No (0 pts) Intoxicated or Sedated No (0 pts) Impaired Gait No (0 pts) Mobility Assist Device Used No (0 pt) Altered Elimination No (0 pt) Score/Fall Risk Level 0 - 2 = Low Risk Maintained a safe environment, Provided non-skid footwear, Hourly rounding (assess needs \T\ fall precautionary measures) done. Abuse screen: Denies threats or abuse. Nutritional screening: No deficits noted. Tuberculosis screening: No symptoms or risk factors identified. Assessment: 15:07 General: Appears comfortable, well groomed, well developed, well nourished, Behavior is me1 calm, cooperative, appropriate for age, Reports urinary urgency and frequency starting one week ago. Pain: Denies pain. Neuro: Level of Consciousness is awake, alert, obeys commands, Oriented to person, place, time, situation, Appropriate for age. Cardiovascular: Patient's skin is warm and dry. Respiratory: Airway is patent Respiratory effort is even, unlabored, Respiratory pattern is regular, symmetrical. GI: No signs and/or symptoms were reported involving the gastrointestinal system. : Reports burning with urination, since one week ago urinary frequency, since one week ago. EENT: No signs and/or symptoms were reported regarding the EENT system. Derm: Skin is intact, is healthy with good turgor, Skin is pink, warm \T\ dry. Musculoskeletal: No signs and/or symptoms reported regarding the musculoskeletal system. Vital Signs: 14:46 BP 128 / 85; Pulse 86; Resp 18 S; Temp 98.2(TE); Pulse Ox 100% on R/A; Weight 99.79 kg aa5 (R); Height 5 ft. 6 in. (R); 15:19 BP 119 / 72; Pulse 82; Resp 16; Temp 98.4; Pulse Ox 99% ; me1 14:46 Body Mass Index 35.51 (99.79 kg, 167.64 cm) aa5 ED Course: 14:43 Patient arrived in ED. mr 14:46 Arm band placed on. aa5 14:47 Triage completed. aa5 14:48 [facility]ice Conley [facility]-C [facility] sb4 14:48 Jono Gross MD is Attending Physician. sb4 14:59 Kisha Colon, SOHA is Primary Nurse. me1 15:06 Test, Urine Sent. me1 15:06 UAM Sent. me1 15:07 Patient has correct armband on for positive identification. Bed in low position. Call [facility] in reach. Side rails up X 1. Provided Education on: POC. Verbalized understanding. . Client placed on continuous cardiac and pulse oximetry monitoring. NIBP monitoring applied. Pulse ox on. NIBP on. 15:07 No provider procedures requiring assistance completed. me1 15:09 Urine collected: clean catch specimen, cloudy, tea colored. me1 15:20 Patient did not have IV access during this emergency room visit. aa5 Administered Medications: No medications were administered Medication: 15:07 VIS not applicable for this client. me1 Outcome: 15:15 Discharge ordered by . sb4 15:20 Discharged to home ambulatory, aa5 15:20 Condition: stable 15:20 Discharge instructions given to patient, Instructed on discharge instructions, follow up and referral plans. medication usage, Demonstrated understanding of instructions, follow-up care, medications, Prescriptions given X 1, 15:21 Patient left the ED. aa5 Addendum: 04/27/2024 14:31 Addendum: Culture Results: Positive urine culture. Bacteria is resistant to, has i w intermediate sensitivity, or is not tested against prescribed antibiotics. Report given to KHADRA for further evaluation and then to poultry scalder for follow up with patient. Phone call Prescription called-in to pharmacy of choice. called in Augmentin 875 PO BID X 7 days , #14, no refills to [facility] in [place]. Signatures: Anat Madera, Reg Reg mr Jory Rahman, RN SOHA iw Brianna Villegas RN RN [email or web address] Trice Conley, PA-C PA-C sb4 Kisha Colon RN RN me1
--- NOTE | 2024-04-24 15:16 | EDPHYS ---
Physician Documentation [facility] Name: Emily Rahman Age: 24 yrs Sex: Female : 2000 Arrival Date: 04/24/2024 Time: 14:40 Bed 13 Private MD: ED Physician Jono Gross HPI: 04/24 15:05 This 24 yrs old Black Female presents to ER via Ambulatory with complaints of Urinary sb4 Problem. 15:05 The patient presents with urinary symptoms, dysuria, frequency. Onset: The sb4 symptoms/episode began/occurred 1 week(s) ago. Modifying factors: The symptoms are alleviated by nothing, the symptoms are aggravated by nothing. Associated signs and symptoms: The patient has no apparent associated signs or symptoms. The patient has experienced similar episodes in the past, a few times, today's symptoms are similar. The patient has not recently seen a physician. 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 - Infectious Disease History:: Denies. - Social history:: Smoking status: Reported history of juuling and/or vaping. ROS: 15:05 Positive for injury or acute deformity, burning with urination, sb4 15:05 Constitutional: Negative for fever, chills, and weight loss, 15:05 All other systems are negative, Exam: 15:05 Constitutional: This is a well developed, well nourished patient who is awake, alert, sb4 and in no acute distress. Head/Face: Normocephalic, atraumatic. Eyes: Extra-ocular motions intact. Periorbital areas with no swelling, redness, or edema. ENT: Mucous membranes moist. Respiratory: No increased work of breathing, no retractions or nasal flaring. Skin: Warm, dry with normal turgor. Normal color with no rashes, no lesions, and no evidence of cellulitis. Vital Signs: 14:46 BP 128 / 85; Pulse 86; Resp 18 S; Temp 98.2(TE); Pulse Ox 100% on R/A; Weight 99.79 kg aa5 (R); Height 5 ft. 6 in. (R); 15:19 BP 119 / 72; Pulse 82; Resp 16; Temp 98.4; Pulse Ox 99% ; me1 14:46 Body Mass Index 35.51 (99.79 kg, 167.64 cm) aa5 MDM: 14:48 Medical Screening Exam initiated sb4 15:06 Data reviewed: vital signs, nurses notes, lab test result(s), and as a result, I will sb4 discharge patient. Counseling: I had a detailed discussion with the patient and/or guardian regarding the historical points, exam findings, and any diagnostic results supporting the discharge/admit diagnosis, lab results, to return to the emergency department if symptoms worsen or persist or if there are any questions or concerns that arise at home. 04/24 14:48 Order name: UAM; Complete Time: 15:57 sb4 04/24 14:48 Order name: Test, Urine; Complete Time: 15:13 sb4 Administered Medications: No medications were administered Disposition Summary: 04/24/24 15:15 Discharge Ordered Notes: Location: Home sb4 Problem: new sb4 Symptoms: are unchanged sb4 Condition: Stable sb4 Diagnosis - UTI/ Urinary tract infection, site not specified sb4 Followup: sb4 - With: Emergency Department - When: - Reason: Fever > 102 F, Worsening of condition Discharge Instructions: - Discharge Summary Sheet sb4 - Urinary Tract Infection, Adult, Hjts-bz-Lzjo sb4 Forms: - Antibiotic Education sb4 - Patient Portal Instructions sb4 - Leadership Thank You Letter sb4 Prescriptions: - Macrobid 100 mg Oral Capsule - take 1 capsule ORAL route every 12 hours for 7 days; 14 capsule; Refills: 0, sb4 Product Selection Permitted Signatures: Dispatcher [employer] Brianna Loaiza, RN RN aa5 Trice Conley PAErnesto PAErnesto sb4
[2024-04-24 19:00] VITALS: BP 119/72; TEMP 98.4; O2SAT 99
== END 2024-04-24 15:21 | disposition home or self-care (01) ==
LOC: ER 14:40
DX: N39.0 Urinary tract infection, site not specified (principal)
CPT/HCPCS: 81001; 81025; 87077; 87086; 87088; 87186; 99284

== ENCOUNTER 2024-05-26 14:48 | Emergency (ER) | payer OTHER ==
--- OUTSIDE RECORDS SUMMARY | 2024-05-26 14:51 | XMS REPORT | Continuity of Care Document ---
Author Name Unknown Address [address] [facility] [address] [place] [address] [facility] thconnect Address [address] [facility]. [address] [place] [address] Care Team Providers Care Delivery Agent Name Role Phone THERESA LORD Primary Care Physician Wilfrid jarrell [id number]_S Attending Clinician JOSIE Johnston Attending Clinician Josie Johnston CNM Attending Clinician [phone] Doctor Unassigned, [place]erson Attending Clinician U THERESA Maciel Attending Clinician Dung Lord WHTheresa GRUBBS Attending Clinician + Visit, Ang-Rmchp Nurse Attending Clinician Jacqueline Vickers MD, Sabrina Bahena Attending Clinician [phone] Ami Paige Attending Clinician [phone] Ultrasound, AntonMfjosiah Attending Clinician Radha Granados Attending Clinician + [phone] NATANAEL_GCBZW_Nida_S Admitting Clinician Sabrina Mistry MD Admitting Clinician [phone] Payers Payer Name Policy Type Policy Number Effective Date Expirati on Date Source [employer] [place] [id number] 2022 00:00:[address] [facility] [id number] 2019 00:00:00 Problems Condition Name Condition Details Condition Category Status Onset Date Resolution Date Last Treatment Date Treating Clinician Comments Source Nexplanon in place Nexplanon in place Disease Active 5 00:00: 00 [facility] Other general counseling and advice for contracept margie management Other general counseling and advice for contracept margie management Disease Active 5- 00:00: 00 [facility] Routine follow-up Routine follow-up Disease Active 09-01 00:00: 00 [facility] (spontaneo us vaginal delivery) (spontaneo us vaginal delivery) Disease Active 2-07 00:00: 00 [facility] Single live Single live Disease Active 2- 00:00: 00 [facility] History of asthma History of asthma Disease Active 2-07 00:00: 00 [facility] Gestationa l hypertensi on Gestationa l hypertensi on Disease Active 206 00:00: 00 [facility] Gestationa l hypertensi on Gestationa l hypertensi on Disease Active 206 00:00: 00 [facility] Obesity (BMI 30-39.9) Obesity (BMI 30-39.9) Disease Active 2-05 00:00: 00 [facility] 39 weeks gestation of 39 weeks gestation of Disease Active 205 00:00: 00 [facility] Susceptibl e to varicella (non-immun e), currently Susceptibl e to varicella (non-immun e), currently Disease Active 12-20 00:00: 00 Overview: Formattin g of this note might be different from the original. Address pp [facility] Multiparit y Multiparit y Disease Active 12-17 00:00: 00 [facility] Obesity affecting Obesity affecting Disease Active 2016-07 00:00: 00 [facility] Supervisio n of high risk , antepartum Supervisio n of high risk , antepartum Disease Active 2017-1 0-18 00:00: 00 [facility] Allergies, Adverse Reactions, Alerts Allergy Name Allergy Type Status Severity Reaction(s) Onset Date Inactive Date Treating Clinician Comments Source NO KNOWN ALLERGIE S Drug Class Active [facility] Social History Social Habit Start Date Stop Date Quantity Comments Source ASSERTION 2018-11-24 00:00:00 [facility] Exposure to SARS-CoV-2 (event) 2022-09-26 00:00:00 2022-10-06 08:16:00 Not sure [facility] Tobacco use and exposure 2022-10-06 00:00:00 2022-10-06 00:00:00 Smokeless tobacco non-user [facility] Alcohol intake 2022-10-06 00:00:00 2022-10-06 00:00:00 Current non-drinker of alcohol (finding) [facility] Alcohol Comment 2018-12-17 00:00:00 2018-12-17 00:00:00 last sexual intercourse 12/09/2018 [facility] Sex Assigned At 2000 00:00:00 2000 00:00:00 [facility] Smoking Status Start Date Stop Date Source Never smoked tobacco [facility] Medications Ordered Medication Name Filled Medication Name Start Date Stop Date Current Medication? Ordering Clinician Indication Dosage Frequency Signature (SIG) Comments Components Source etonogestre l (NEXPLANON) implant 68 mg 09-22 21:45: 00 09-22 20:45 :00 No [id number] 68mg Univer s [facility] varicella virus vaccine live (VARIVAX (PF)) injection 0.5 mL 08-13 13:26: 45 Yes .5mL 0.5 mL, Subcutaneo us, ONCE-PRIOR TO DISCHARGE, 1 dose, Starting 08/13/19 at 0726, Until Discontinu ed, Routine, Give vaccine prior to discharge [facility] ferrous sulfate tablet 325 mg 08-12 15:00: 00 Yes 325mg 325 mg, Oral, DAILY, First dose on 08/12/19 at 0900, Until Discontinu ed, Routine [facility] ibuprofen (IBU) tablet 600 mg 08-12 02:45: 55 Yes 600mg 600 mg, Oral, Q6HPRN, Starting Zeina 08/11/19 at 2044, Until Discontinu ed, Routine, Pain (scale 4-6) [facility] acetaminoph en (TYLENOL) tablet 650 mg 08-12 02:45: 55 Yes 650mg 650 mg, Oral, Q6HPRN, Starting Zeina 08/11/19 at 2044, Until Discontinu ed, Routine, Pain (scale 1-3) [facility] diphenhydrA MINE (BENADRYL) tablet 25 mg 08-12 02:45: 55 Yes 25mg 25 mg, Oral, Q6HPRN, Starting Zeina 08/11/19 at 2044, Until Discontinu ed, Routine, Sleep, Itching [facility] ondansetron (ZOFRAN (PF)) injection 4 mg 08-12 02:45: 55 Yes 4mg 4 mg, Slow IV Push, Q8HPRN, Starting Zeina 08/11/19 at 2044, Until Discontinu ed, Routine, Nausea and Vomiting (N/V) [facility] simethicone (GAS RELIEF (SIMETHICON E)) chewable tablet 160 mg 08-12 02:45: 55 Yes 160mg 160 mg, Oral, PC+HSPRN, Starting Zeina 08/11/19 at 2044, Until Discontinu ed, Routine, Gas [facility] docusate calcium (SURFAK) capsule 240 mg 08-12 02:45: 55 Yes 240mg 240 mg, Oral, QDAILYPRN, Starting Zeina 08/11/19 at 2044, Until Discontinu ed, Routine, Constipati on [facility] magnesium hydroxide (MILK OF MAGNESIA) 400 mg/5 mL suspension 30 mL 08-12 02:45: 55 Yes 30mL 30 mL, Oral, QDAILYPRN, Starting Zeina 08/11/19 at 2044, Until Discontinu ed, Routine, Constipati on [facility] benzocaine- menthol (DERMOPLAST ) 20-0.5 % topical spray 08-12 02:45: 55 Yes Topical, PRN, Starting Zeina 08/11/19 at 2045, Until Discontinu ed, Routine, Perineum discomfort [facility] docusate calcium 240 mg capsule 08-12 00:00: 00 09-25 00:00 :00 No [id number] 240mg Take 1 capsule by mouth once daily as needed for Constipati on. [facility] ibuprofen 600 mg tablet 08-12 00:00: 09-25 00:00 :00 No [id number] 600mg Take 1 tablet by mouth every 6 (six) hours as needed (Pain). Take with food or milk. [facility] Iron Fum & P-FA-Vit B & C No.9 (INTEGRA PLUS) 125 mg iron- 1 mg Cap 08-12 00:00: 00 09-25 00:00 :00 No [id number] 1{capsu le} Take 1 capsule by mouth daily. [facility] amnioinfusi on IV infusion via GRAVITY [...] until the liter is complete.& nbsp;&nbsp ;Notify Pairer Odds if uterine resting tone exceeds 25 mmHg at any time during the amnioinfus ion. Obst etrics (KARINA) Aminoinfus ion Orders
[facility] lactated ringers IV infusion 500 mL 08-11 17:45: 00 08-11 16:45 :00 No 500mL at 999 mL/hr, 500 mL, IV Infusion, ONCE, 1 dose, Zeina 08/11/19 at 1145, Routine [facility] ondansetron (ZOFRAN (PF)) injection 4 mg 08-11 08:15: 00 08-11 07:12 :00 No 4mg 4 mg, Slow IV Push, ONCE, 1 dose, Zeina 08/11/19 at 0215, Routine [facility] D5W-LR IV infusion 1,000 mL 08-11 04:00: 00 08-12 02:46 :09 No 1000mL at 125 mL/hr, IV Infusion, CONTINUOUS , Starting 08/10/19 at 2200, Until Zeina 08/11/19 at 2046, Routine [facility] LR 1000 mL + oxytocin 20 units IV Solution 08-11 03:55: 08 08-12 02:46 :09 No 2mU/min 2 julio-unit s/min (6 mL/hr), at 6 mL/hr, IV Infusion, TITRATE, Starting 08/10/19 at 2155, Until Zeina 08/11/19 at 2045, RADHA, Oxytocin Induction / Augmentati on of Labor. [facility] sodium citrate-cit jaycee acid (BICITRA) 500-334 mg/5 mL solution 30 mL 08-11 03:51: 29 08-11 16:38 :00 No 30mL 30 mL, Oral, PRE-PROCED URE ONCE, 1 dose, Starting Thu08/10/19 at 2151, Until Discontinu ed, Routine, Surgery/Pr ocedure [facility] ferrous sulfate 325 mg (65 mg iron) tablet 12-10 00:00: 00 08-12 00:00 :00 No [id number] 325mg Take 1 tablet by mouth 2 (two) times daily. [facility] ascorbic acid, vitamin C, 500 mg tablet 12-10 00:00: 00 08-12 00:00 :00 No [id number] 500mg Take 1 tablet by mouth 3 (three) times daily. [facility] doxylamine- pyridoxine, vit B6, (DICLEGIS) 10-10 mg per tablet 2016-07 00:00: 00 08-12 00:00 :00 No [id number] 2{tbl} Take 2 tablets by mouth at bedtime. [facility] PNV 67-iron ps-folate no.1-dha (VITAFOL ULTRA) 29 mg iron- 1 mg-200 mg Cap 2017-1 0-18 00:00: 00 08-12 00:00 :00 No [id number] 1{each} Take 1 Each by mouth daily. [facility] Vital Signs Vital Name Observation Time Observation Value Comments S salvatore Systolic blood pressure 2022-10-06 13:30:00 113 mm[Hg] [facility] Diastolic blood pressure 2022-10-06 13:30:00 73 mm[Hg] [facility] Heart rate 2022-10-06 13:30:00 77 /min Unive [facility] Body temperature 2022-10-06 13:30:00 36.17 Isa [facility] Respiratory rate 2022-10-06 13:30:00 18 /min [facility] Body height 2022-10-06 13:30:00 162.6 cm Univ [facility] Body weight 2022-10-06 13:30:00 106.051 kg [facility] BMI 2022-10-06 13:30:00 40.13 kg/m2 Univ [facility] Systolic blood pressure 2022-09-25 18:35:00 125 mm[Hg] [facility] Diastolic blood pressure 2022-09-25 18:35:00 84 mm[Hg] [facility] Heart rate 2022-09-25 18:35:00 110 /min Unive [facility] Body temperature 2022-09-25 18:35:00 36.78 Isa [facility] Respiratory rate 2022-09-25 18:35:00 20 /min [facility] Body height 2022-09-25 18:35:00 162.6 cm Univ [facility] Body weight 2022-09-25 18:35:00 103.964 kg [facility] BMI 2022-09-25 18:35:00 39.34 kg/m2 [facility] Systolic blood pressure 2020-02-20 18:45:00 109 mm[Hg] [facility] Diastolic blood pressure 2020-02-20 18:45:00 73 mm[Hg] [facility] Heart rate 2020-02-20 18:45:00 77 /[facility] 2020-02-20 18:45:00 36.89 Isa [facility] Respiratory rate 2020-02-20 18:45:00 16 /min [facility] Body height 2020-02-20 18:45:00 162.6 cm [facility] weight 2020-02-20 18:45:00 91.768 [facility] BMI 2020-02-20 18:45:00 34.73 kg/m2 [facility] Systolic blood pressure 2019-09-23 20:15:00 125 mm[Hg] [facility] Diastolic blood pressure 2019-09-23 20:15:00 77 mm[Hg] [facility] Heart rate 2019-09-23 20:15:00 78 /min [facility] Body temperature 2019-09-23 20:15:00 37.11 Isa [facility] Respiratory rate 2019-09-23 20:15:00 16 /min [facility] Body height 2019-09-23 20:15:00 162.6 cm [facility] Body weight 2019-09-23 20:15:00 85.475 [facility] BMI 2019-09-23 20:15:00 32.35 kg/m2 [facility] Systolic blood pressure 2019-09-01 16:15:00 114 mm[Hg] [facility] Diastolic blood pressure 2019-09-01 16:15:00 68 mm[Hg] [facility] Heart rate 2019-09-01 16:15:00 74 /min [facility] Body temperature 2019-09-01 16:15:00 36.72 Isa [facility] Respiratory rate 2019-09-01 16:15:00 16 /min [facility] Body height 2019-09-01 16:15:00 162.6 cm [facility] Body weight 2019-09-01 16:15:00 85.333 kg Univ ersity [facility] BMI 2019-09-01 16:15:00 32.29 kg/m2 [facility] Systolic blood pressure 2019-08-18 21:56:00 124 mm[Hg] [facility] Diastolic blood pressure 2019-08-18 21:56:00 80 mm[Hg] [facility] Heart rate 2019-08-18 21:56:00 92 /min Unive [facility] Body temperature 2019-08-18 21:56:00 37.22 Isa [facility] Respiratory rate 2019-08-18 21:56:00 16 /min [facility] Body height 2019-08-18 21:56:00 160 cm Univ [facility] Body weight 2019-08-18 21:56:00 86.592 kg [facility] BMI 2019-08-18 21:56:00 33.82 kg/m2 [facility] Systolic blood pressure 2019-08-13 14:00:00 119 mm[Hg] [facility] Diastolic blood pressure 2019-08-13 14:00:00 76 mm[Hg] [facility] Heart rate 2019-08-13 14:00:00 74 /min Unive [facility] Body temperature 2019-08-13 14:00:00 37 Isa [facility] Respiratory rate 2019-08-13 14:00:00 18 /min [facility] Oxygen saturation in Arterial blood by Pulse oximetry 2019-08-13 14:00:00 99 /min [facility] Body height 2019-08-11 02:00:00 162 cm [facility] Body weight 2019-08-11 02:00:00 94.348 kg [facility] BMI 2019-08-11 02:00:00 35.95 kg/m2 Univ [facility] Systolic blood pressure 2019-08-03 19:39:00 116 mm[Hg] [facility] Diastolic blood pressure 2019-08-03 19:39:00 75 mm[Hg] [facility] Heart rate 2019-08-03 19:39:00 116 /min Unive [facility] Body temperature 2019-08-03 19:39:00 37 Isa [facility] Respiratory rate 2019-08-03 19:39:00 16 /min [facility] Body height 2019-08-03 19:39:00 165.1 cm Univ [facility] Body weight 2019-08-03 19:39:00 95.369 kg [facility] BMI 2019-08-03 19:39:00 34.99 kg/m2 [facility] Systolic blood pressure 2019-07-26 21:14:00 134 mm[Hg] [facility] Diastolic blood pressure 2019-07-26 21:14:00 87 mm[Hg] [facility] Heart rate 2019-07-26 21:14:00 92 /min Unive [facility] Body temperature 2019-07-26 21:14:00 37.72 Isa [facility] Respiratory rate 2019-07-26 21:14:00 16 /min [facility] Body height 2019-07-26 21:14:00 165.1 cm [facility] Body weight 2019-07-26 21:14:00 96.389 kg [facility] BMI 2019-07-26 21:14:00 35.36 kg/m2 [facility] Systolic blood pressure 2019-03-22 19:25:00 113 mm[Hg] [facility] Diastolic blood pressure 2019-03-22 19:25:00 72 mm[Hg] [facility] Heart rate 2019-03-22 19:25:00 93 /min Unive [facility] Body temperature 2019-03-22 19:25:00 36.94 Isa [facility] Respiratory rate 2019-03-22 19:25:00 16 /min [facility] Body height 2019-03-22 19:25:00 160 cm [facility] Body weight 2019-03-22 19:25:00 93.441 kg [facility] BMI 2019-03-22 19:25:00 36.49 kg/m2 [facility] Systolic blood pressure 2019-02-21 19:44:00 134 mm[Hg] [facility] Diastolic blood pressure 2019-02-21 19:44:00 77 mm[Hg] [facility] Heart rate 2019-02-21 19:44:00 101 /min [facility] Body temperature 2019-02-21 19:44:00 37 Isa [facility] Respiratory rate 2019-02-21 19:44:00 16 /min [facility] Body height 2019-02-21 19:44:00 160 cm [facility] Body weight 2019-02-21 19:44:00 94.121 kg [facility] BMI 2019-02-21 19:44:00 36.76 kg/m2 [facility] Procedures Procedure Date / Time Performed Performing Clinician Source DISCLOSURE AND CONSENT, MEDICAL AND SURGICAL PROCEDURES 2022-10-06 05:01:00 Doctor Unassigned, Sanderson [facility] GARDASIL 9 (HPV 9V) VACCINE 2022-09-25 18:54:20 Theresa Lord [facility] ASSIGNMENT OF BENEFITS 2022-09-25 18:15:42 Jose Cruz florence Unassigned, Sanderson [facility] GARDASIL 9 (HPV 9V) VACCINE 2020-02-20 19:16:37 Theresa Lord [facility] ASSIGNMENT OF BENEFITS 2020-02-20 18:38:40 Jose Cruz florence Unassigned, Sanderson [facility] GARDASIL 9 (HPV 9V) VACCINE 2019-09-23 21:08:55 Theresa Lord [facility] POCT TEST 2019-09-23 20:16:00 Jeet Lord [facility] CONSENT FOR CONTRACEPTION 2019-09-23 05:01:00 Doctor Unassigned, Sanderson [facility] CBC WITH DIFFERENTIAL 2019-08-12 09:42:00 Tian Alberto [facility] VENOUS CORD GAS 2019-08-11 23:27:00 Artem Carranza [facility] URINALYSIS 2019-08-11 12:19:[address] [facility] PROTEIN CREAT RATIO URINE RANDOM 2019-08-11 12:19:00 Pauly Hill [facility] LACTATE DEHYDROGENASE 2019-08-11 07:31:00 Nell Hill [facility] CBC WITH DIFFERENTIAL 2019-08-11 07:31:00 Nell Hill [facility] SGOT (ASPARTATE AMINO TRANSFER) 2019-08-11 04:05:00 Pauly Hill [facility] CREATININE 2019-08-11 04:05:[address] [facility] ALANINE AMINO TRANSFERASE(SGPT 2019-08-11 04:05:00 Pauly Hill [facility] URIC ACID 2019-08-11 04:05:[address] [facility] HEPATITIS B SURFACE ANTIGEN 2019-08-11 04:05:00 Pedro Carranza [facility] GALV ONLY - SYPHILIS IGG/IGM 2019-08-11 04:05:00 Pedro Carranza [facility] HB ABO GROUPING 2019-08-11 04:04:00 Artem Carranza [facility] RHO (D) IMMUNE GLOBULIN 2019-08-11 04:04:00 Nell Alberto [facility] POCT URINALYSIS 2019-08-03 19:42:00 Theresa Lord [facility] POCT URINALYSIS 2019-07-26 21:46:00 Theresa Lord [facility] POCT URINALYSIS 2019-03-22 19:31:00 Theresa Lord [facility] POCT URINALYSIS 2019-02-21 19:44:00 Theresa Lord [facility] Encounters Start Date/Time End Date/Time Encounter Type Admission Type Attending [facility] Care Facility Care Department Encounter ID Source 2023-05-02 00:00:00 2023-05-02 00:00:00 Outpatient GC_[email or web address] henny_S [facility] [id number] [facility] 2022-10-06 08:30:00 2022-10-06 08:59:30 Outpatient JOSIE BABCOCK [facility] [id number] [facility] 2022-10-06 08:30:00 2022-10-06 08:59:30 Office Visit Josie Torres [facility] [employer] [facility] 1..114 350.1.13.10 [id number] [id number] [facility] 2022-10-06 00:00:00 2022-10-06 00:00:00 Orders Only Doctor Unassigned, [facility] [id number] 350.1.13.10 4.2.7.2.686 [id number] [facility] 2022-09-25 13:15:00 2022-09-25 14:35:28 Outpatient R THERESA LORD [facility] [id number] [facility] 2022-09-25 13:15:00 2022-09-25 14:35:28 Office Visit Theresa Lord [facility] 1.84.114 350.1.13.10 4.2.7.2.686 [id number] [facility] 2022-09-25 00:00:00 2022-09-25 00:00:00 Orders Only Doctor Unassigned, [facility] 1.2.114 350.1.13.10 4.2.7.2.686 [id number] [facility] 2020-05-23 14:00:00 2020-05-23 14:00:00 Outpatient R [facility] [id number] [facility] 2020-02-20 13:40:12 2020-02-20 14:05:43 Nurse Visit Visit, Zane-Rmchp Nurse Theresa Lord [facility] 1.84.114 [id number] 4.2.7.2.686 [id number] [facility] 2020-02-20 13:30:00 2020-02-20 13:30:00 Outpatient R THERESA LORD [facility] [id number] [facility] 2020-02-20 00:00:00 2020-02-20 00:00:00 Orders Only Doctor Unassigned, [facility] 1.114 350.1.13.10 4.2.7.2.686 [id number] [facility] 2019-11-23 13:00:00 2019-11-23 13:00:00 Outpatient R [facility] [id number] [facility] 2019-11-09 14:15:00 2019-11-09 14:15:00 Outpatient R THERESA LORD [facility] [id number] [facility] 2019-11-09 12:42:08 2019-11-09 12:57:08 Telemedici ne Visit Theresa Lord [facility] [employer] [facility] & CHILD [facility] 1..114 350.1.13.10 [id number] [id number] [facility] 2019-10-07 13:30:00 2019-10-07 13:30:00 Outpatient R THERESA LORD [facility] [id number] [facility] 2019-10-06 08:45:00 2019-10-06 08:45:00 Outpatient R THERESA LORD [facility] [id number] [facility] 2019-10-06 00:00:00 2019-10-06 00:00:00 Telephone Theresa Lord [facility] [employer] [facility] & CHILD [facility] 1..114 350.1.13.10 [id number] [id number] [facility] 2019-09-23 15:04:55 2019-09-23 16:09:38 Office Visit Theresa Lord [facility] [employer] [facility] & CHILD [facility] 1..114 350.1.13.10 [id number] [id number] [facility] 2019-09-23 15:00:00 2019-09-23 15:00:00 Outpatient R THERESA LORD [facility] [id number] [facility] 2019-09-23 00:00:00 2019-09-23 00:00:00 Orders Only Doctor Unassigned, [facility] [id number] 350.1.13.10 4.2.7.2.686 [id number] [facility] 2019-09-01 10:02:22 2019-09-01 10:17:22 Routine Visit Theresa Lord [facility] [employer] [facility] & CHILD [facility] [id number] 350.1.13.10 [id number] [id number] [facility] 2019-09-01 09:30:00 2019-09-01 09:30:00 Outpatient R THERESA LORD [facility] [id number] [facility] 2019-08-18 09:28:08 2019-08-18 09:52:41 Nurse Visit Visit, Ang-Rmchp Nurse Theresa Lord [facility] [employer] [facility] & CHILD [facility] 1.840.114 350.1.13.10 4.2.7.2.686 [id number] [facility] 2019-08-10 18:34:00 2019-08-13 14:36:00 Hospital Encounter [facility] [id number] 350.1.13.10 [id number] [id number] [facility] 2019-08-03 13:13:09 2019-08-03 13:53:30 Routine Visit Theresa Lord [facility] [employer] [facility] CHILD [facility] [id number] 350.1.13.10 4.2.7.2.686 [id number] [facility] 2019-07-26 14:51:29 2019-07-26 15:37:05 Routine Visit Theresa Lord [facility] CATHODE RAY TUBE ASSEMBLER [facility] MATERNAL & CHILD [facility] [id number] 350.1.13.10 4.2.7.2.686 [id number] [facility] 2019-03-22 14:01:38 2019-03-22 14:51:32 Routine Visit Theresa Lord Emily N [facility] CATHODE RAY T[employer] ASSEM[employer] [facility]NAL [facility] CHILD [facility] [id number] [id number] 4.2.7.2.686 [id number] [facility] 2019-03-22 00:00:00 2019-03-22 00:00:00 Telephone Theresa Lord [facility] CATHODE R[employer] ASSEM[employer] [facility]NAL [facility] CHILD [facility] [id number] 350.1.13.10 4.2.7.2.686 [id number] [facility] 2019-02-23 11:21:38 2019-02-23 11:46:18 Cafe Assistant Visit Ultrasound, Sabrina Prabhakar [facility] CATH[employer]DE [employer] ASSEM[employer] [facility]NAL [facility] CHILD [facility] [id number] 350.1.13.10 4.2.7.2.686 [id number] [facility] 2019-02-23 00:00:00 2019-02-23 00:00:00 Abstract Radha Arboleda [facility] [employer]ATH[employer]DE [employer] ASSEM[employer] [facility]NAL [facility] CHILD [facility] [id number] 350.1.13.10 4.2.7.2.686 [id number] [facility] 2019-02-21 14:37:15 2019-02-21 15:06:20 Routine Visit Radha Arboleda [facility] CATHODE RAY TUBE ASSEM[employer]ER [facility]NAL [facility] [id number] [id number] [id number] [id number] [facility] Results Test Description Test Time Test Comments Results Result Co mments Source [facility] [id number] 20:17:00* Test Item Value Reference Range Interpretation Comme nts POCT PREG (test code = 1605) Negative On board controls acceptable with C Line (test code = 3574) Yes POCT PREG LOT # (test code = 3575) POCT PREG TEST DATE ( test code = 3576) [facility]GALV ONLY - SYPHILIS IGG/[id number] 14:54:00* Test Item Value Reference Range Interpretation Comme nts Syphilis IgG/IgM (test code = 51619-3) Non-reactive Non-reactive FARHAD (test code = FARHAD) Non-reactive - No serologic evidence of T. pallidum infection. Cannot exclude incubating or early syphilis. Submit a second specimen in 2-4 weeks if syphilis is clinically suspected. Equivocal - Further testing to follow. Reactive - Further testing to follow. Lab Interpretation (test code = 61368-8) Normal [facility] DallasCBC WITH [id number] 10:19:00* Test Item Value Reference Range Interpretation [...] g/dL 31.6-35.1 L RDW-SD (test code = 22827-9) 44.3 fL 39-49.9 RDW-CV (test code = 788-0) 16.9 % 12-15.5 H PLT (test code = 777-3) See_Comment [Automated message] The system which generated this result transmitted reference range: 166 - 358 10*3/?L. The reference range was not used to interpret this result as normal/abnormal. MPV (test code = 01659-9) 12.1 fL 9.5-12.9 NRBC/100 WBC (test code = 2410428530) See_Comment [Automated message] The system which generated this result transmitted reference range: 0.0 - 10.0 /100 WBCs. The reference range was not used to interpret this result as normal/abnormal. NRBC x10^3 (test code = 5269066898) <0.01 See_Comment [Automated message] The system which generated this result transmitted reference range: 10*3/?L. The reference range was not used to interpret this result as normal/abnormal. GRAN MAT (NEUT) % (test code = 770-8) 70.9 % IMM GRAN % (test code = 3557809715) 0.50 % LYMPH % (test code = 736-9) 21.0 % MONO % (test code = 5905-5) 7.2 % EOS % (test code = 713-8) 0.2 % BASO % (test code = 706-2) 0.2 % GRAN MAT x10^3(ANC) (test code = 0146531950) 10.09 10*3/uL 1.88-7.09 H IMM GRAN x10^3 (test code = 0408434059) 0.07 10*3/uL 0-0.06 H LYMPH x10^3 (test code = 731-0) 2.98 10*3/uL 1.32-3.29 MONO x10^3 (test code = 742-7) 1.02 10*3/uL 0.33-0.92 H EOS x10^3 (test code = 711-2) 0.03 10*3/uL 0.03-0.39 BASO x10^3 (test code = 704-7) 0.03 10*3/uL 0.01-0.07 Lab Interpretation (test code = 54842-4) Abnormal [facility] Dallas[facility]HO (D) IMMUNE [id number] 02:49:21* Test Item Value Reference Range Interpretation Comme nts RHIG CANDIDATE? (test code = 5055) No- see comment Patient is not a candidate for RhIg- Patient is Rh Positive.Performed at [facility] Laboratory Services - [facility] Blood [address] [address]Hyav Free: [phone] No. [id number] [facility] DallasVENOUS CORD [id number] 23:39:00* Test Item Value Reference Range Interpretation Comme nts VENOUS BASE EXCESS, CORD (test code = 4265763724) mEq/L VENOUS PH, CORD (test code = 9898206600) 7.25-7.45 VENOUS PC02, CORD (test code = 2431302139) See_Comment [Automated messa ge] The system which generated this result transmitted reference range: 27 - 49 mmHg. The reference range was not used to interpret this result as normal/abnormal. VENOUS PO2, CORD (test code = 4716166481) See_Comment [Automated me ssage] The system which generated this result transmitted reference range: 17 - 41 mmHg. The reference range was not used to interpret this result as normal/abnormal. VENOUS BICARBONATE, CORD (test code = 8999574603) See_Comment [Automated messa ge] The system which generated this result transmitted reference range: 12 - 29 mEq/L. The reference range was not used to interpret this result as normal/abnormal. [facility] DallasARTERIAL CORD [id number] 23:39:00* Test Item Value Reference Range Interpretation Comme nts BASE EXCESS, CORD (test code = 2596607069) mEq/L AC PH, CORD (BEAKER) (test code = 4410263470) 7.18-7.38 PC02, CORD (test code = 5922619170) See_Comment [Automated messa ge] The system which generated this result transmitted reference range: 32 - 66 mmHg. The reference range was not used to interpret this result as normal/abnormal. PO2, CORD (test code = 2987571690) See_Comment [Automated messa ge] The system which generated this result transmitted reference range: 10 - 30 mmHg. The reference range was not used to interpret this result as normal/abnormal. BICARBONATE, CORD (test code = 5022258051) See_Comment [Automated messa ge] The system which generated this result transmitted reference range: 17 - 27 mEq/L. The reference range was not used to interpret this result as normal/abnormal. [facility] DallasProtein CREAT Ratio Urine [id number] 13:03:00* Test Item Value Reference Range Interpretation Comme nts T. PROT U (test code = 2888-6) 12 mg/dL CREAT U (test code = 2238288143) 215.7 mg/dL Protein/Creatinine Ratio Uri ne (test code = 8297071571) 0.0-2.0 [facility] DallasUrinalysis2020-02-06 12:45:00* Test Item Value Reference Range Interpretation Comme nts APPEARANCE (test code = 3499100036) Hazy Clear A COLOR (test code = 1206120916) Yellow Yellow PH (test code = 5008625807) 4.8-8.0 SP GRAVITY (test code = 6620917111) 1.003-1.030 GLU U QUAL (test code = 6901492388) Normal Normal BLOOD (test code = 5726450081) Negative Negative INTERFERENCE FRO M ASCORBIC ACID MAY CAUSE FALSE NEGATIVE RESULT KETONES (test code = 2740934720) 5 mg/dL Negative A PROTEIN (test code = 2887-8) 30 mg/dL Negative A UROBILIN (test code = 4258444756) 4.0 mg/dL Normal A BILIRUBIN (test code = 9622414508) Negative Negative NITRITE (test code = 8349635024) Negative Negative LEUK REFUGIO (test code = 8657524706) 25/uL Negative A RBC/HPF (test code = 1723168136) See_Comment [Automated messa ge] The system which generated this result transmitted reference range: 0 - 3 HPF. The reference range was not used to interpret this result as normal/abnormal. WBC/HPF (test code = 3296762333) See_Comment H [Automated messa ge] The system which generated this result transmitted reference range: 0 - 5 HPF. The reference range was not used to interpret this result as normal/abnormal. BACTERIA (test code = 8232086459) Moderate Negative A MUCOUS (test code = 4998923697) Marked Negative LPF A SQ EPITH (test code = 8083582304) See_Comment H [Automated messa ge] The system which generated this result transmitted reference range: <=2 HPF. The reference range was not used to interpret this result as normal/abnormal. Lab Interpretation (test code = 97755-7) Abnormal [facility] DallasHepatitis B Surface [id number] 09:09:00 * Test Item Value Reference Range Interpretation Comme nts HBsAg Semi-Quantitative (darryl t code = 5195-3) Negative Negative [facility] DallasLactate [id number] 08:41:00* Test Item Value Reference Range Interpretation Comme nts LDH (test code = 3089985674) 433 U/L 300-600 Lab Interpretation (test cod e = 22287-6) Normal [facility] DallasUric Acid [id number] 08:11:00* Test Item Value Reference Range Interpretation Comme nts URIC ACID (test code = 1399112287) 4.1 mg/dL 2.9-6 Lab Interpretation (test cod e = 75241-4) Normal [facility] [id number] 08:11:00* Test Item Value Reference Range Interpretation Comme nts CREATININE (test code = 6496494412) 0.50 mg/dL 0.5-1.04 eGFR Calculation (Non-) (test code = 6405666402) mL/min/1.73m2 eGFR Calculation () (test code = 8139080269) mL/min/1.73m2 FARHAD (test code = FARHAD) Association [...] or urine or abnormalities in imaging tests). [facility] DallasSGOT (Asparate Amino Transfer)2019-08-11 08:11:00* Test Item Value Reference Range Interpretation Comme [facility] AST(SGOT) (test code = 0867428208) 22 U/L 13-40 Lab Interpretation (test cod e = 54717-7) Normal [facility] DallasAlanine Amino Transferase (SGPT)2019-08-11 08:11:00* Test Item Value Reference Range Interpretation Comme nts ALTv (test code = 1742-6) 10 U/L 5-35 Lab Interpretation (test cod e = 93926-3) Normal [facility] DallasCB WITH [id number] 07:44:00* Test Item Value Reference Range Interpretation Comme nts WBC (test code = 6690-2) See_Comment [Automated [employer] G-CON] The system which generated this result transmitted reference range: 4.30 - 11.10 10*3/?L. The reference range was not used to interpret this result as normal/abnormal. RBC (test code = 789-8) See_Comment [Automated [employer] G-CON] The system which generated this result transmitted [...] g/dL 31.6-35.1 L RDW-SD (test code = 73130-7) 43.4 fL 39-49.9 RDW-CV (test code = 788-0) 17.0 % 12-15.5 H PLT (test code = 777-3) See_Comment [Automated [employer] ge] The system which generated this result transmitted reference range: 166 - 358 10*3/?L. The reference range was not used to interpret this result as normal/abnormal. MPV (test code = 95913-7) 11.5 fL 9.5-12.9 NRBC/100 WBC (test code = 1938172410) See_Comment [Automated [employer] ssage] The system which generated this result transmitted reference range: 0.0 - 10.0 /100 WBCs. The reference range was not used to interpret this result as normal/abnormal. NRBC x10^3 (test code = 6436981319) <0.01 See_Comment [Automated [employer] ge] The system which generated this result transmitted reference range: 10*3/?L. The reference range was not used to interpret this result as normal/abnormal. GRAN MAT (NEUT) % (test code = 770-8) 50.4 % IMM GRAN % (test code = 8226755318) 0.30 % LYMPH % (test code = 736-9) 39.9 % MONO % (test code = 5905-5) 8.3 % EOS % (test code = 713-8) 0.8 % BASO % (test code = 706-2) 0.3 % GRAN MAT x10^3(ANC) (test code = 6916542565) 3.84 10*3/uL 1.88-7.09 IMM GRAN x10^3 (test code = 0634305576) <0.03 0-0.06 LYMPH x10^3 (test code = 731-0) 3.04 10*3/uL 1.32-3.29 MONO x10^3 (test code = 742-7) 0.63 10*3/uL 0.33-0.92 EOS x10^3 (test code = 711-2) 0.06 10*3/uL 0.03-0.39 BASO x10^3 (test code = 704-7) <0.03 0.01-0.07 Lab Interpretation (test code = 66483-9) Abnormal [facility] DallasType and Screen - ONCE [id number] 04:44:04 * Test Item Value Reference Range Interpretation Comme nts ABO & RH (test code = 20) O POSITIVE Performed at [facility] Laboratory Services - [facility] Blood [place] [address]Toll Free: [phone] No. [id number] IAT (test code = 1185) Negative Performed at [facility] Laboratory Services [facility] Blood [address] Free: [phone] No. [id number] [facility] DallasPOCT URINALYSIS W SPECIFIC [id number] 19:42:00* Test Item Value Reference Range Interpretation [...] U APPEAR (test code = 3267) [facility] URINALYSIS W SPECIFIC [id number] 19:42:00* Test Item Value Reference Range Interpretation [...] U APPEAR (test code = 3267) [facility] URINALYSIS W SPECIFIC [id number] 21:46:00* Test Item Value Reference Range Interpretation [...] U APPEAR (test code = 3267) [facility] URINALYSIS W SPECIFIC [id number] 19:31:00* Test Item Value Reference Range Interpretation [...] U APPEAR (test code = 3267) [facility] URINALYSIS W SPECIFIC [id number] 19:45:00* Test Item Value Reference Range Interpretation [...] 3267) Lab Interpretation (test cod e = 60292-5) Abnormal [facility] URINALYSIS W SPECIFIC [id number] 19:45:00* Test Item Value Reference Range Interpretation [...] 3267) Lab Interpretation (test cod e = 87339-0) Abnormal [facility]"
[2024-05-26 16:45] LABS: Specific Gravity 1.036 (1.005-1.030)
[2024-05-26 16:47] LABS: Specific Gravity > 1.030 (1.005-1.030); Urine Bacteria <20 /HPF (<20); Urine Bilirubin NEGATIVE (Negative); Urine Blood Negative (Negative); Urine Clarity Extremely Turbid (Clear); Urine Color Yellow (Yellow); Urine Culture Reflex Order NOT NEEDED; Urine Glucose NEGATIVE (Negative); Urine Ketones TRACE (Negative); Urine Microscopic Reflex YN ORDER UMIC; Urine Mucus 2+ /HPF (None Seen); Urine Nitrite NEGATIVE (Negative); Urine Protein 1+ (Negative); Urine Urobilinogen 2+ (Normal); Urine WBC <5 /HPF (<5)
[2024-05-26 17:01] LABS: Absolute Basophils 0.1 K/uL (0-0.5); Absolute Eosinophils 0.1 K/uL (0-0.5); Absolute Lymphocytes (CBC) 3.1 K/uL (0.7-4.9); Absolute Monocytes 0.9 K/uL (0.1-1.3); Absolute Neutrophil 7.8 K/uL (1.8-8.0); Basophils % 0.5 % (0-1.3); Eosinophils % 0.5 % (0-4.4); Hematocrit 43.1 % (36.0-45.0); Hemoglobin 13.8 g/dL (12.0-15.0); Lymphocytes % 26.3 % (15.3-44.8); MCH 25.7 pg (27.0-35.0); MCV 80.2 fL (80-100); MPV 8.9 fL (7.6-11.3); Monocytes % 7.2 % (3.3-12.3); Neutrophils % 65.5 % (41.7-73.7); Platelets 291 thou/uL (152-406); RBC Red Blood Cell Count 5.37 M/uL (3.86-4.86)
[2024-05-26 17:02] LABS: Anion Gap 8.4 mEq/L (5.0-15.0); Potassium 3.4 mEq/L (3.5-5.1)
--- NOTE | 2024-05-26 17:44 | EDPHYS ---
Physician Documentation [facility] Name: Emily Rahman Age: 24 yrs Sex: Female : 2000 Arrival Date: 05/26/2024 Time: 14:48 Bed 26 Private MD: ED Physician Jono Gross HPI: 05/26 15:20 This 24 yrs old Black Female presents to ER via Ambulatory with complaints of Blood cp work. 15:20 Patient is a 24-year-old female who presents to the emergency department requesting cp hormone level test. She reports a positive test 2 days ago. She was seen at the [facility] today and told she needed to go to the emergency room department to have a hormone level checked. She had an ultrasound done today that did not show any in the uterus. She is denying any abdominal pain and/or vaginal bleeding. She is unsure of her last menstrual cycle. 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 - Infectious Disease History:: Denies. - Social history:: Smoking status: Patient denies any tobacco usage or history of. ROS: 15:25 Constitutional: History per HPI cp Exam: 15:30 Constitutional: The patient appears in no acute distress, alert, awake, comfortable, cp non-toxic, well developed, well nourished, 15:30 Head/Face: Normocephalic, atraumatic. cp 15:30 Eyes: Periorbital structures: appear normal, Conjunctiva: normal, no exudate, no injection, Lids and lashes: appear normal, bilaterally, 15:30 ENT: External ear(s): are unremarkable, Nose: is normal, Mouth: Lips: moist, Oral mucosa: pink and intact, moist, Posterior pharynx: Airway: no evidence of obstruction, patent, 15:30 Chest/axilla: Inspection: normal, 15:30 Cardiovascular: Rate: tachycardic, Rhythm: regular, 15:30 Respiratory: the patient does not display signs of respiratory distress, Respirations: normal, no use of accessory muscles, no retractions, labored breathing, is not present, Breath sounds: are clear throughout, no decreased breath sounds, no stridor, no wheezing, 15:30 Abdomen/GI: Inspection: abdomen appears normal, Palpation: abdomen is soft and non-tender, in all quadrants, 15:30 Back: pain, is absent, ROM is normal, Vital Signs: 15:13 BP 127 / 88; MAP 98 mmHg; tm6 15:16 BP 127 / 88; Pulse 100; Resp 18; Temp 97.3(TE); Pulse Ox 100% on R/A; MAP 98 mmHg; tm6 Weight 99.79 kg; Height 5 ft. 6 in. ; Pain 0/10; 16:30 BP 121 / 78; Pulse 85; Resp 16; Pulse Ox 98% ; me1 17:30 BP 129 / 75; Pulse 87; Resp 15; Temp 98.4; Pulse Ox 97% ; me1 15:16 Body Mass Index 35.51 (99.79 kg, 167.64 cm) tm6 15:16 Pain Scale: Adult tm6 MDM: 15:13 Medical Screening Exam initiated cp 16:00 Differential diagnosis: STD, ectopic . cp 17:42 Data reviewed: vital signs, nurses notes, lab test result(s). Counseling: I had a cp detailed discussion with the patient and/or guardian regarding the historical points, exam findings, and any diagnostic results supporting the discharge/admit diagnosis, lab results, the need for outpatient follow up, an OB/Gyne specialist, to return to the emergency department if symptoms worsen or persist or if there are any questions or concerns that arise at home. 05/26 15:17 Order name: Urinalysis w/ reflexes; Complete Time: 17:06 05/26 17:06 Interpretation: Normal except: [facility] Extremely Turbid; Urine SG > 1.030; UKET TRACE; cp UPROT 1+; UUROB 2+; UESTR 75; URBC 5-10. 05/26 15:17 Order name: Quantitative Hcg; Complete Time: 17:24 05/26 17:24 Interpretation: HCGQ 295; Reviewed. 05/26 15:20 Order name: Abo/rh Typing; Complete Time: 17:24 05/26 15:20 Order name: Basic Metabolic Panel; Complete Time: 17:06 05/26 17:06 Interpretation: Normal except: K 3.4; GFR 81. cp 05/26 15:20 Order name: CBC with Diff; Complete Time: 17:24 cp 05/26 15:20 Order name: Test, Urine; Complete Time: 17:06 cp 05/26 17:06 Interpretation: Reviewed. cp 05/26 15:20 Order name: IV Saline Lock; Complete Time: 16:38 cp 05/26 15:20 Order name: Labs collected and sent; Complete Time: 16:38 cp 05/26 15:20 Order name: NPO; Complete Time: 16:27 cp Administered Medications: 17:57 Not Given (Patient Refused): potassium [id number] meq PO once me1 Disposition Summary: 05/26/24 17:43 Discharge Ordered Notes: Location: Home cp Problem: new cp Symptoms: have improved cp Condition: Stable cp Diagnosis - Encounter for test, result positive cp Followup: cp - With: Private Physician - When: 1 week - Reason: Recheck today's complaints Discharge Instructions: - Discharge Summary Sheet cp - Care cp - Alcohol Use During cp - First Trimester of cp - Home Test Information cp - Activity Restriction During cp - Eating Plan for Women cp - Exercise During cp Forms: - Medication Reconciliation Form cp - Antibiotic Education cp - Prescription Opioid Use cp - Patient Portal Instructions cp - Leadership Thank You Letter cp Prescriptions: - 114-iron a-g-folate 1 20 mg iron- 1 mg Oral tablet - take 1 tablet ORAL route every day at bedtime; 60 tablet; Refills: 0, Product cp Selection Permitted Signatures: Dispatcher [employer] EDKY Jono Celestin PA PA cp Sean Platt RN RN tm6 Kisha Colon RN me1 Corrections: (The following items were deleted from the chart) 15:21 15:20 ABO/RH TYPING+BB.LAB.BRZ ordered. EDMS EDMS 15:21 15:20 BASIC METABOLIC PANEL+C.LAB.BRZ ordered. EDMS EDMS 15:21 15:20 CBC+H.LAB.BRZ ordered. EDMS EDMS 15:21 15:20 Test, Urine+UC.LAB.BRZ ordered. EDMS EDMS 17:26 15:17 TEST, SERUM+SC.LAB.BRZ ordered. EDMS EDMS 05/27 16:18 05/26 17:30 Data reviewed: vital signs, nurses notes, lab test result(s), cp cp 05/27 16:18 05/26 17:30 Counseling: I had a detailed discussion with the patient and/or guardian cp regarding the historical points, exam findings, and any diagnostic results supporting the discharge/admit diagnosis, lab results, the need for outpatient follow up, an OB/Gyne specialist, to return to the emergency department if symptoms worsen or persist or if there are any questions or concerns that arise at home, cp
--- NOTE | 2024-05-26 17:44 | ER ---
Nurse's Notes [facility] Name: Emily Rahman Age: 24 yrs Sex: Female : 2000 Arrival Date: 05/26/2024 Time: 14:48 Bed 26 Private MD: Diagnosis: Encounter for test, result positive Presentation: 05/26 15:13 Chief complaint: Patient states: I had a positive test two days ago, I [facility] and they said to go to the ER to get my HCG level tested. They did an US and did not see anything. Coronavirus screen: Client denies travel out of the [place] in the last 14 days. Ebola Screen: Patient negative for fever greater than or equal to 101.5 degrees Fahrenheit, and additional compatible Ebola Virus Disease symptoms Patient denies exposure to infectious person. Patient denies travel to an Ebola-affected area in the 21 days before illness onset. No symptoms or risks identified at this time. Initial Sepsis Screen:. Initial Sepsis Screen: Does the patient meet any 2 criteria? HR > 90 bpm. Does the patient have a suspected source of infection? No. Patient's initial sepsis screen is negative. Risk Assessment: Do you want to hurt yourself or someone else? Patient reports no desire to harm self or others. Onset of symptoms was May 26, 2024. 15:13 Method Of Arrival: Ambulatory tm6 15:13 Acuity: [facility]CA 3 tm6 Triage Assessment: 15:15 General: Appears in no apparent distress. Behavior is calm, cooperative. Pain: Denies tm6 pain. EENT: No signs and/or symptoms were reported regarding the EENT system. Neuro: Level of Consciousness is awake, alert, obeys commands, Oriented to person, place, time, situation. Cardiovascular: Patient's skin is warm and dry. Respiratory: Airway is patent Respiratory effort is even, unlabored, Respiratory pattern is regular, symmetrical. GI: No signs and/or symptoms were reported involving the gastrointestinal system. Abdomen is round. : No signs and/or symptoms were reported regarding the genitourinary system. Derm: No signs and/or symptoms reported regarding the dermatologic system. Musculoskeletal: No signs and/or symptoms reported regarding the musculoskeletal system. 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 - Infectious Disease History:: Denies. - Social history:: Smoking status: Patient denies any tobacco usage or history of. Screenin:20 [facility] ED Fall Risk Assessment (Adult) History of falling in the last 3 months, me1 including since admission No falls in past 3 months (0 pts) Confusion or Disorientation No (0 pts) Intoxicated or Sedated No (0 pts) Impaired Gait No (0 pts) Mobility Assist Device Used No (0 pt) Altered Elimination No (0 pt) Score/Fall Risk Level 0 - 2 = Low Risk Maintained a safe environment, Provided non-skid footwear, Hourly rounding (assess needs \T\ fall precautionary measures) done. Abuse screen: Denies threats or abuse. Nutritional screening: No deficits noted. Tuberculosis screening: No symptoms or risk factors identified. Assessment: 16:20 General: Appears in no apparent distress. obese, well groomed, well developed, Behavior me1 is calm, cooperative, appropriate for age, Reports I had a positive test two days ago, [facility] and they said to go to the ER to get my HCG level tested. They did an US and did not see anything. Pain: Denies pain. Neuro: Level of Consciousness is awake, alert, obeys commands, Oriented to person, place, time, situation, Appropriate for age. Cardiovascular: Patient's skin is warm and dry. Respiratory: Airway is patent Respiratory effort is even, unlabored, Respiratory pattern is regular, symmetrical. GI: No signs and/or symptoms were reported involving the gastrointestinal system. : No signs and/or symptoms were reported regarding the genitourinary system. : Reports I had a positive test two days ago, I went to [facility] and they said to go to the ER to get my HCG level tested. They did an US and did not see anything. EENT: No signs and/or symptoms were reported regarding the EENT system. Derm: Skin is intact, is healthy with good turgor, Skin is pink, warm \T\ dry. Musculoskeletal: No signs and/or symptoms reported regarding the musculoskeletal system. Circulation, motion, and sensation intact. Range of motion: intact in all extremities. Vital Signs: 15:13 BP 127 / 88; MAP 98 mmHg; tm6 15:16 BP 127 / 88; Pulse 100; Resp 18; Temp 97.3(TE); Pulse Ox 100% on R/A; MAP 98 mmHg; tm6 Weight 99.79 kg; Height 5 ft. 6 in. ; Pain 0/10; 16:30 BP 121 / 78; Pulse 85; Resp 16; Pulse Ox 98% ; me1 17:30 BP 129 / 75; Pulse 87; Resp 15; Temp 98.4; Pulse Ox 97% ; me1 15:16 Body Mass Index 35.51 (99.79 kg, 167.64 cm) tm6 15:16 Pain Scale: Adult tm6 ED Course: 14:52 Patient arrived in ED. im 14:56 Jono Celestin PA is PHCP. cp 14:56 Jono Gross MD is Attending Physician. cp 15:15 Triage completed. tm6 15:15 Arm band placed on right wrist. tm6 16:20 Patient has correct armband on for positive identification. Bed in low position. Call co1 light in reach. Side rails up X 1. Provided Education on: POC. Verbalized understanding. . Client placed on continuous cardiac and pulse oximetry monitoring. NIBP monitoring applied. Pulse ox on. NIBP on. 16:20 No provider procedures requiring assistance completed. me1 16:27 Test, Urine Sent. tm6 16:27 Urinalysis w/ reflexes Sent. tm6 16:28 Kisha Colon, SOHA is Primary Nurse. me1 16:38 Abo/rh Typing Sent. me1 16:38 Basic Metabolic Panel Sent. me1 16:38 CBC with Diff Sent. me1 16:38 Initial lab(s) drawn, by co, sent to lab. Inserted saline lock: 22 gauge in right me1 antecubital area, using aseptic technique. 17:52 IV discontinued, intact, bleeding controlled, No redness/swelling at site. Pressure me1 dressing applied. Administered Medications: 17:57 Not Given (Patient Refused): potassium [id number] meq PO once me1 Medication: 16:20 VIS not applicable for this client. co1 Outcome: 17:43 Discharge ordered by . cp 17:52 Discharged to home ambulatory, me1 17:52 Condition: stable 17:52 Discharge instructions given to patient, Instructed on discharge instructions, follow up and referral plans. medication usage, Demonstrated understanding of instructions, follow-up care, medications, Prescriptions given X 1, 17:53 Patient left the ED. me1 Signatures: Jono Celestin PA PA cp Mendoza, Itzel im Eddleman, Michelle, RN RN me1 Sean Platt RN RN tm6 Corrections: (The following items were deleted from the chart) 16:52 15:13 Chief complaint: Patient states: I had a positive test two days ago, I me1 went to the [facility] and they said to go to the ER to get my HCG level tested. They did an US and did not see anything tm6
[2024-05-26 21:11] VITALS: BP 129/75; TEMP 98.4; O2SAT 97
== END 2024-05-26 17:53 | disposition home or self-care (01) ==
LOC: ER 14:48
DX: Z32.01 Encounter for pregnancy test, result positive (principal)
CPT/HCPCS: 36415; 80048; 81001; 81025; 84702; 85025; 86900; 86901; 99284

== ENCOUNTER 2024-05-30 10:43 | Emergency (ER) | payer OTHER ==
--- OUTSIDE RECORDS SUMMARY | 2024-05-30 10:47 | XMS REPORT | Continuity of Care Document ---
Author Name Unknown Address [address] [place] [address] [address] [place] [address] [facility]connect Address [address] [place] [address] [address] [place] [address] Care Team Providers Care Chip Frier Name Role Phone THERESA LORD Primary Care Physician Unav wesly SANTOYO_GCBZW_Nida_S Attending Clinician JOSIE Johnston Attending Clinician Josie Johnston CNM Attending Clinician [phone] Doctor Unassigned, [place] Attending Clinician U THERESA Maciel Attending Clinician Theresa Montaño Attending Clinician + Visit, Ang-Rmchp Nurse Attending Clinician Jacqueline Vickers MD, Sabrina Bahena Attending Clinician [phone] Ami Paige Attending Clinician [phone] Ultrasound, Antonm Attending Clinician Radha Granados Attending Clinician + [phone] NATANAEL_GCBZW_Nida_S Admitting Clinician Sabrina Mistry MD Admitting Clinician [phone] Payers Payer Name Policy Type Policy Number Effective Date Expirati on Date Source [employer] [place] [id number] 2022 00:00:00 [facility] [id number] 2019 00:00:00 Problems Condition Name Condition Details Condition Category Status Onset Date Resolution Date Last Treatment Date Treating Clinician Comments Source Nexplanon in place Nexplanon in place Disease Active 5- 00:00: 00 [facility] Other general counseling and advice for contracept margie management Other general counseling and advice for contracept margie management Disease Active 5-06 00:00: 00 [facility] Routine follow-up Routine follow-up Disease Active 2- 00:00: 00 [facility] (spontaneo us vaginal delivery) (spontaneo us vaginal delivery) Disease Active 2-07 00:00: 00 [facility] Single live Single live Disease Active 2-07 00:00: 00 [facility] History of asthma History of asthma Disease Active 2-07 00:00: 00 [facility] Gestationa l hypertensi on Gestationa l hypertensi on Disease Active 2-06 00:00: 00 [facility] Gestationa l hypertensi on Gestationa l hypertensi on Disease Active 206 00:00: 00 [facility] Obesity (BMI 30-39.9) Obesity (BMI 30-39.9) Disease Active 2-05 00:00: 00 [facility] 39 weeks gestation of 39 weeks gestation of Disease Active 2-05 00:00: 00 [facility] Susceptibl e to varicella (non-immun e), currently Susceptibl e to varicella (non-immun e), currently Disease Active 17 00:00: 00 Overview: Formattin g of this note might be different from the original. Address pp [facility] Multiparit y Multiparit y Disease Active 12-17 00:00: 00 [facility] Obesity affecting Obesity affecting Disease Active 2016-07 00:00: 00 [facility] Supervisio n of high risk , antepartum Supervisio n of high risk , antepartum Disease Active 2016-07 00:00: 00 [facility] Allergies, Adverse Reactions, Alerts Allergy Name Allergy Type Status Severity Reaction(s) Onset Date Inactive Date Treating Clinician Comments Source NO KNOWN ALLERGIE S Drug Class Active [facility] Social History Social Habit Start Date Stop Date Quantity Comments Source ASSERTION 2018-11-24 00:00:[address] [facility] Exposure to SARS-CoV-2 (event) 2022-09-26 00:00:00 2022-10-06 08:16:[address] [facility] Tobacco use and exposure 2022-10-06 00:00:00 2022-10-06 00:00:00 Smokeless tobacco non-user [facility] Alcohol intake 2022-10-06 00:00:00 2022-10-06 00:00:00 Current non-drinker of alcohol (finding) [facility] Alcohol Comment 2018-12-17 00:00:00 2018-12-17 00:00:00 last sexual intercourse 12/09/[address] [facility] Sex Assigned At 2000 00:00:00 1998 00:00:[address] [facility] Smoking Status Start Date Stop Date Source Never smoked tobacco [facility] Medications Ordered Medication Name Filled Medication Name Start Date Stop Date Current Medication? Ordering Clinician Indication Dosage Frequency Signature (SIG) Comments Components Source etonogestre l (NEXPLANON) implant 68 mg 09-22 21:45: 00 09-22 20:45 :00 No [id number] 68mg [facility] varicella virus vaccine live (VARIVAX (PF)) injection 0.5 mL 08-13 13:26: 45 Yes .5mL 0.5 mL, Subcutaneo us, ONCE-PRIOR TO DISCHARGE, 1 dose, Starting 08/13/19 at 0726, Until Discontinu ed, Routine, Give vaccine prior to discharge [facility] ferrous sulfate tablet 325 mg 08-12 15:00: 00 Yes 325mg 325 mg, Oral, DAILY, First dose on 08/12/19 at 0900, Until Discontinu ed, Routine [facility] ibuprofen (IBU) tablet 600 mg 08-12 02:45: 55 Yes 600mg 600 mg, Oral, Q6HPRN, Starting Zeina 08/11/19 at 2044, Until Discontinu ed, Routine, Pain (scale 4-6) [facility] acetaminoph en (TYLENOL) tablet 650 mg 08-12 02:45: 55 Yes 650mg 650 mg, Oral, Q6HPRN, Starting Zeina 08/11/19 at 2044, Until Discontinu ed, Routine, Pain (scale 1-3) [facility] diphenhydrA MINE (BENADRYL) tablet 25 mg 08-12 02:45: 55 Yes 25mg 25 mg, Oral, Q6HPRN, Starting Zeina 08/11/19 at 2044, Until Discontinu ed, Routine, Sleep, Itching [facility] ondansetron (ZOFRAN (PF)) injection 4 mg 08-12 02:45: 55 Yes 4mg 4 mg, Slow IV Push, Q8HPRN, Starting Zeina 08/11/19 at 2044, Until Discontinu ed, Routine, Nausea and Vomiting (N/V) [facility] simethicone (GAS RELIEF (SIMETHICON E)) chewable tablet 160 mg 08-12 02:45: 55 Yes 160mg 160 mg, Oral, PC+HSPRN, Starting Zeina 08/11/19 at 2044, Until Discontinu ed, Routine, Gas [facility] docusate calcium (SURFAK) capsule 240 mg 08-12 02:45: 55 Yes 240mg 240 mg, Oral, QDAILYPRN, Starting Zeina 08/11/19 at 2044, Until Discontinu ed, Routine, Constipati on [facility] magnesium hydroxide (MILK OF MAGNESIA) 400 mg/5 mL suspension 30 mL 08-12 02:45: 55 Yes 30mL 30 mL, Oral, QDAILYPRN, Starting Zeina 08/11/19 at 2044, Until Discontinu ed, Routine, Constipati on [facility] benzocaine- menthol (DERMOPLAST ) 20-0.5 % topical spray 08-12 02:45: 55 Yes Topical, PRN, Starting Zeina 08/11/19 at 2045, Until Discontinu ed, Routine, Perineum discomfort [facility] docusate calcium 240 mg capsule 08-12 00:00: 00 09-25 00:00 :00 No [id number] 240mg Take 1 capsule by mouth once daily as needed for Constipati on. [facility] ibuprofen 600 mg tablet 08-12 00:00: 09-25 00:00 :00 No [id number] 600mg Take 1 tablet by mouth every 6 (six) hours as needed (Pain). Take with food or milk. [facility] Iron Fum & P-FA-Vit B & C No.9 (INTEGRA PLUS) 125 mg iron- 1 mg Cap 08-12 00:00: 00 09-25 00:00 :00 No [id number] 1{capsu le} Take 1 capsule by mouth daily. [facility] amnioinfusi on IV infusion via GRAVITY 0.9 [...] until the liter is complete.& nbsp;&nbsp ;Notify Bookkeeping Service Sales Agent if uterine resting tone exceeds 25 mmHg at any time during the amnioinfus ion. Obst etrics (KARINA) Aminoinfus ion Orders
[facility] lactated ringers IV infusion 500 mL 08-11 17:45: 00 08-11 16:45 :00 No 500mL at 999 mL/hr, 500 mL, IV Infusion, ONCE, 1 dose, Zeina 08/11/19 at 1145, Routine [facility] ondansetron (ZOFRAN (PF)) injection 4 mg 08-11 08:15: 00 08-11 07:12 :00 No 4mg 4 mg, Slow IV Push, ONCE, 1 dose, Zeina 08/11/19 at 0215, Routine [facility] D5W-LR IV infusion 1,000 mL 08-11 04:00: 00 08-12 02:46 :09 No 1000mL at 125 mL/hr, IV Infusion, CONTINUOUS , Starting 08/10/19 at 2200, Until Zeina 08/11/19 at 2046, Routine [facility] LR 1000 mL + oxytocin 20 units IV Solution 08-11 03:55: 08 08-12 02:46 :09 No 2mU/min 2 julio-unit s/min (6 mL/hr), at 6 mL/hr, IV Infusion, TITRATE, Starting 08/10/19 at 2155, Until Zeina 08/11/19 at 6, RADHA, Oxytocin Induction / Augmentati on of Labor. [facility] sodium citrate-cit jaycee acid (BICITRA) 500-334 mg/5 mL solution 30 mL 08-11 03:51: 29 08-11 16:38 :00 No 30mL 30 mL, Oral, PRE-PROCED URE ONCE, 1 dose, Starting Thu08/10/19 at 2151, Until Discontinu ed, Routine, Surgery/Pr ocedure [facility] ferrous sulfate 325 mg (65 mg iron) tablet 12-10 00:00: 00 08-12 00:00 :00 No [id number] 325mg Take 1 tablet by mouth 2 (two) times daily. [facility] ascorbic acid, vitamin C, 500 mg tablet 12-10 00:00: 00 08-12 00:00 :00 No [id number] 500mg Take 1 tablet by mouth 3 (three) times daily. [facility] doxylamine- pyridoxine, vit B6, (DICLEGIS) 10-10 mg per tablet 2016-0715 00:00: 00 08-12 00:00 :00 No [id number] 2{tbl} Take 2 tablets by mouth at bedtime. [facility] PNV 67-iron ps-folate no.1-dha (VITAFOL ULTRA) 29 mg iron- 1 mg-200 mg Cap 2017- 0-18 00:00: 00 08-12 00:00 :00 No [id number] 1{each} Take 1 Each by mouth daily. [facility] Vital Signs Vital Name Observation Time Observation Value Comments S salvatore Systolic blood pressure 2022-10-06 13:30:00 113 mm[Hg] [facility] Diastolic blood pressure 2022-10-06 13:30:00 73 mm[Hg] [facility] Heart rate 2022-10-06 13:30:00 77 /min [facility] Body temperature 2022-10-06 13:30:[address] [facility] Respiratory rate 2022-10-06 13:30:00 18 /min [facility] Body height 2022-10-06 13:30:00 162.6 cm [facility] Body weight 2022-10-06 13:30:00 106.051 kg [facility] BMI 2022-10-06 13:30:00 40.13 kg/m2 [facility] Systolic blood pressure 2022-09-25 18:35:00 125 mm[Hg] [facility] Diastolic blood pressure 2022-09-25 18:35:00 84 mm[Hg] [facility] Heart rate 2022-09-25 18:35:00 110 /min Unive [facility] Body temperature 2022-09-25 18:35:[address] [facility] Respiratory rate 2022-09-25 18:35:00 20 /min [facility] Body height 2022-09-25 18:35:00 162.6 cm [facility] Body weight 2022-09-25 18:35:00 103.964 kg [facility] BMI 2022-09-25 18:35:00 39.34 kg/m2 [facility] Systolic blood pressure 2020-02-20 18:45:00 109 mm[Hg] [facility] Diastolic blood pressure 2020-02-20 18:45:00 73 mm[Hg] [facility] Heart rate 2020-02-20 18:45:00 77 /min [facility] 2020-02-20 18:45:[address] [facility] Respiratory rate 2020-02-20 18:45:00 16 /min [facility] Body height 2020-02-20 18:45:00 162.6 cm [facility] Body weight 2020-02-20 18:45:00 91.768 kg Univ [facility] BMI 2020-02-20 18:45:00 34.73 kg/m2 [facility] Systolic blood pressure 2019-09-23 20:15:00 125 mm[Hg] [facility] Diastolic blood pressure 2019-09-23 20:15:00 77 mm[Hg] [facility] Heart rate 2019-09-23 20:15:00 78 /min [facility] Body temperature 2019-09-23 20:15:[address] [facility] Respiratory rate 2019-09-23 20:15:00 16 /min [facility] Body height 2019-09-23 20:15:00 162.6 cm [facility] Body weight 2019-09-23 20:15:00 85.475 kg [facility] BMI 2019-09-23 20:15:00 32.35 kg/m2 [facility] Systolic blood pressure 2019-09-01 16:15:00 114 mm[Hg] [facility] Diastolic blood pressure 2019-09-01 16:15:00 68 mm[Hg] [facility] Heart rate 2019-09-01 16:15:00 74 /min Unive [facility] Body temperature 2019-09-01 16:15:[address] [facility] Respiratory rate 2019-09-01 16:15:00 16 /min [facility] Body height 2019-09-01 16:15:00 162.6 cm [facility] Body weight 2019-09-01 16:15:00 85.333 kg [facility] BMI 2019-09-01 16:15:00 32.29 kg/m2 [facility] Systolic blood pressure 2019-08-18 21:56:00 124 mm[Hg] [facility] Diastolic blood pressure 2019-08-18 21:56:00 80 mm[Hg] [facility] Heart rate 2019-08-18 21:56:00 92 /min Unive [facility] Body temperature 2019-08-18 21:56:[address] [facility] Respiratory rate 2019-08-18 21:56:00 16 /min [facility] Body height 2019-08-18 21:56:00 160 cm [facility] Body weight 2019-08-18 21:56:00 86.592 kg [facility] BMI 2019-08-18 21:56:00 33.82 kg/m2 [facility] Systolic blood pressure 2019-08-13 14:00:00 119 mm[Hg] [facility] Diastolic blood pressure 2019-08-13 14:00:00 76 mm[Hg] [facility] Heart rate 2019-08-13 14:00:00 74 /min Unive [facility] Body temperature 2019-08-13 14:00:[address] [facility] Respiratory rate 2019-08-13 14:00:00 18 /min [facility] Oxygen saturation in Arterial blood by Pulse oximetry 2019-08-13 14:00:00 99 /min [facility] Body height 2019-08-11 02:00:00 162 cm [facility] Body weight 2019-08-11 02:00:00 94.348 kg [facility] BMI 2019-08-11 02:00:00 35.95 kg/m2 [facility] Systolic blood pressure 2019-08-03 19:39:00 116 mm[Hg] [facility] Diastolic blood pressure 2019-08-03 19:39:00 75 mm[Hg] [facility] Heart rate 2019-08-03 19:39:00 116 /min Unive [facility] Body temperature 2019-08-03 19:39:[address] [facility] Respiratory rate 2019-08-03 19:39:00 16 /min [facility] Body height 2019-08-03 19:39:00 165.1 cm [facility] Body weight 2019-08-03 19:39:00 95.369 kg [facility] BMI 2019-08-03 19:39:00 34.99 kg/m2 [facility] Systolic blood pressure 2019-07-26 21:14:00 134 mm[Hg] [place] [facility] Diastolic blood pressure 2019-07-26 21:14:00 87 mm[Hg] [facility] Heart rate 2019-07-26 21:14:00 92 /min [facility] Body temperature 2019-07-26 21:14:[address] [facility] Respiratory rate 2019-07-26 21:14:00 16 /min [facility] Body height 2019-07-26 21:14:00 165.1 cm [facility] Body weight 2019-07-26 21:14:00 96.389 kg [facility] BMI 2019-07-26 21:14:00 35.36 kg/m2 [facility] Systolic blood pressure 2019-03-22 19:25:00 113 mm[Hg] [facility] Diastolic blood pressure 2019-03-22 19:25:00 72 mm[Hg] [facility] Heart rate 2019-03-22 19:25:00 93 /min Un[facility] Body temperature 2019-03-22 19:25:[address] [facility] Respiratory rate 2019-03-22 19:25:00 16 /min [facility] Body height 2019-03-22 19:25:00 160 cm [facility] Body weight 2019-03-22 19:25:00 93.441 kg [facility] BMI 2019-03-22 19:25:00 36.49 kg/m2 [facility] Systolic blood pressure 2019-02-21 19:44:00 134 mm[Hg] [facility] Diastolic blood pressure 2019-02-21 19:44:00 77 mm[Hg] [facility] Heart rate 2019-02-21 19:44:00 101 /min [facility] Body temperature 2019-02-21 19:44:[address] [facility] Respiratory rate 2019-02-21 19:44:00 16 /min [facility] Body height 2019-02-21 19:44:00 160 cm [facility] Body weight 2019-02-21 19:44:00 94.121 kg [facility] BMI 2019-02-21 19:44:00 36.76 kg/m2 [facility] Procedures Procedure Date / Time Performed Performing Clinician Source DISCLOSURE AND CONSENT, MEDICAL AND SURGICAL PROCEDURES 2022-10-06 05:01:00 Doctor Unassigned, Parmelee [facility] GARDASIL 9 (HPV 9V) VACCINE 2022-09-25 18:54:[address] [facility] ASSIGNMENT OF BENEFITS 2022-09-25 18:15:42 Jose Cruz florence Unassigned, Parmelee [facility] GARDASIL 9 (HPV 9V) VACCINE 2020-02-20 19:16:[address] [facility] ASSIGNMENT OF BENEFITS 2020-02-20 18:38:40 Jose Cruz florence Unassigned, Parmelee [facility] GARDASIL 9 (HPV 9V) VACCINE 2019-09-23 21:08:[address] [facility] POCT TEST 2019-09-23 20:16:[address] [facility] CONSENT FOR CONTRACEPTION 2019-09-23 05:01:00 Doctor Unassigned, Parme[place] [facility] CBC WITH DIFFERENTIAL 2019-08-12 09:42:[address] [facility] VENOUS CORD GAS 2019-08-11 23:27:[address] [facility] URINALYSIS 2019-08-11 12:19:00 Pauly Hill [facility] PROTEIN CREAT RATIO URINE RANDOM 2019-08-11 12:19:[address] [facility] LACTATE DEHYDROGENASE 2019-08-11 07:31:[address] [facility] CBC WITH DIFFERENTIAL 2019-08-11 07:31:[address] [facility] SGOT (ASPARTATE AMINO TRANSFER) 2019-08-11 04:05:[address] [facility] CREATININE 2019-08-11 04:05:00 Pauly Hill [facility] ALANINE AMINO TRANSFERASE(SGPT 2019-08-11 04:05:[address] [facility] URIC ACID 2019-08-11 04:05:00 Pauly Hill [facility] HEPATITIS B SURFACE ANTIGEN 2019-08-11 04:05:[address] [facility] GALV ONLY - SYPHILIS IGG/IGM 2019-08-11 04:05:[address] [facility] HB ABO GROUPING 2019-08-11 04:04:[address] [facility] RHO (D) IMMUNE GLOBULIN 2019-08-11 04:04:[address] [facility] POCT URINALYSIS 2019-08-03 19:42:[address] [facility] POCT URINALYSIS 2019-07-26 21:46:[address] [facility] POCT URINALYSIS 2019-03-22 19:31:[address] [facility] POCT URINALYSIS 2019-02-21 19:44:[address] [facility] Encounters Start Date/Time End Date/Time Encounter Type Admission Type Attending [facility] Care Facility Care Department Encounter ID Source 2023-05-02 00:00:00 2023-05-02 00:00:00 Outpatient [email or web address] cherisea_S [facility] [id number] [facility] 2022-10-06 08:30:00 2022-10-06 08:59:30 Outpatient JOSIE BABCOCK [facility] [id number] [facility] 2022-10-06 08:30:00 2022-10-06 08:59:30 Office Visit Josie Torres [facility] PROFESSOR OF RELIGIOUS STUDIES [facility]ILD [facility] [id number] [id number] [id number] [facility] 2022-10-06 00:00:00 2022-10-06 00:00:00 Orders Only Doctor Unassigned, [place]lee [facility] [id number] [id number] [facility] 2022-09-25 13:15:00 2022-09-25 14:35:28 Outpatient R THERESA LORD [facility] [id number] [facility] 2022-09-25 13:15:00 2022-09-25 14:35:28 Office Visit Theresa Lord [facility] 1..114 [id number] [id number] [facility] 2022-09-25 00:00:00 2022-09-25 00:00:00 Orders Only Doctor Unassigned, [place]lee [facility] [id number] [id number] [id number] [id number] [facility] 2020-05-23 14:00:00 2020-05-23 14:00:00 Outpatient R [facility] [id number] [facility] 2020-02-20 13:40:12 2020-02-20 14:05:43 Nurse Visit Visit, Ang-Rmchp Nurse Theresa Lord [facility] 1..114 [id number] [id number] [id number] [facility] 2020-02-20 13:30:00 2020-02-20 13:30:00 Outpatient R THERESA LORD [facility] [id number] [facility] 2020-02-20 00:00:00 2020-02-20 00:00:00 Orders Only Doctor Unassigned, [place] [facility] 1.114 350.1.13.10 [id number] [id number] [facility] 2019-11-23 13:00:00 2019-11-23 13:00:00 Outpatient R [facility] [id number] [facility] 2019-11-09 14:15:00 2019-11-09 14:15:00 Outpatient R THERESA LORD [facility] [id number] [facility] 2019-11-09 12:42:08 2019-11-09 12:57:08 Telemedici ne Visit Theresa Lord [facility] PROFESSOR OF RELIGIOUS STUDIES [facility] 1.114 [id number] [id number] [facility] 2019-10-07 13:30:00 2019-10-07 13:30:00 Outpatient R THERESA LORD [facility] [id number] [facility] 2019-10-06 08:45:00 2019-10-06 08:45:00 Outpatient R THERESA LORD [facility] [id number] [facility] 2019-10-06 00:00:00 2019-10-06 00:00:00 Telephone Theresa Lord [facility] PROFESSOR OF RELIGIOUS STUDIES [facility] 1.114 350.1.13.10 [id number] [id number] [facility] 2019-09-23 15:04:55 2019-09-23 16:09:38 Office Visit Theresa Lord [facility] PROFESSOR OF RELIGIOUS STUDIES [facility] 1..114 [id number] 4.2.7.2.686 [id number] [facility] 2019-09-23 15:00:00 2019-09-23 15:00:00 Outpatient R THERESA LORD [facility] [id number] [facility] 2019-09-23 00:00:00 2019-09-23 00:00:00 Orders Only Doctor Unassigned, [place] [facility] [id number] [id number] [id number] [id number] [facility] 2019-09-01 10:02:22 2019-09-01 10:17:22 Routine Visit Theresa Lord [facility] PROFESSOR OF RELIGIOUS STUDIES [facility] 1..114 [id number] [id number] [id number] [facility] 2019-09-01 09:30:00 2019-09-01 09:30:00 Outpatient R THERESA LORD [facility] [id number] [facility] 2019-08-18 09:28:08 2019-08-18 09:52:41 Nurse Visit Visit, Ang-Rmchp Nurse Theresa Lord [facility] PROFESSOR OF RELIGIOUS STUDIES [facility] 1..114 350.1.13.10 [id number] [id number] [facility] 2019-08-10 18:34:00 2019-08-13 14:36:00 Hospital Encounter Sabrina Vickers [facility] 1..114 350.1.13.10 4.2.7.2.686 [id number] [facility] 2019-08-03 13:13:09 2019-08-03 13:53:30 Routine Visit Theresa Lord [facility] PROFESSOR OF RELIGIOUS STUDIES [facility] 1.840.114 350.1.13.10 4.2.7.2.686 [id number] [facility] 2019-07-26 14:51:29 2019-07-26 15:37:05 Routine Visit Theresa Lord [facility] PROFESSOR OF RELIGIOUS STUDIES [facility] 1.2.840.114 350.1.13.10 4.2.7.2.686 [id number] [facility] 2019-03-22 14:01:38 2019-03-22 14:51:32 Routine Visit Theresa Lord Emily N [facility] PROFESSOR OF RELIGIOUS STUDIES [facility] 1.2.840.114 350.1.13.10 4.2.7.2.686 [id number] [facility] 2019-03-22 00:00:00 2019-03-22 00:00:00 Telephone Theresa Lord [facility] PROFESSOR OF RELIGIOUS STUDIES [facility] 1.2.840.114 350.1.13.10 4.2.7.2.686 [id number] [facility] 2019-02-23 11:21:38 2019-02-23 11:46:18 Roller Leveler Visit Ultrasound, Sabrina Prabhakar [facility] PROFESSOR OF RELIGIOUS STUDIES [facility] 1.2.840.114 350.1.13.10 4.2.7.2.686 [id number] [facility] 2019-02-23 00:00:00 2019-02-23 00:00:00 Abstract Radha Arboleda [facility] PROFESSOR OF RELIGIOUS STUDIES [facility] 1.2.840.114 350.1.13.10 4.2.7.2.686 [id number] [facility] 2019-02-21 14:37:15 2019-02-21 15:06:20 Routine Visit Radha Arboleda [facility] PROFESSOR OF RELIGIOUS STUDIES [facility] 1.2.840.114 350.1.13.10 4.2.7.2.686 [id number] [facility] Results Test Description Test Time Test Comments Results Result Co mments Source [facility] [id number] 20:17:00* Test Item Value Reference Range Interpretation Comme nts POCT PREG (test code = 1605) Negative On board controls acceptable with C Line (test code = 3574) Yes POCT PREG LOT # (test code = 3575) POCT PREG TEST DATE ( test code = 3576) [facility] - SYPHILIS [id number] 14:54:00* Test Item Value Reference Range Interpretation Comme nts Syphilis IgG/IgM (test code = 00884-5) Non-reactive Non-reactive FARHAD (test code = FARHAD) Non-reactive - No serologic evidence of T. pallidum infection. Cannot exclude incubating or early syphilis. Submit a second specimen in 2-4 weeks if syphilis is clinically suspected. Equivocal - Further testing to follow. Reactive - Further testing to follow. Lab Interpretation (test code = 35574-6) Normal [facility] HospitalCBC WITH [id number] 10:19:00* Test Item Value Reference Range Interpretation [...] g/dL 31.6-35.1 L RDW-SD (test code = 42065-0) 44.3 fL 39-49.9 RDW-CV (test code = 788-0) 16.9 % 12-15.5 H PLT (test code = 777-3) See_Comment [Automated message] The system which generated this result transmitted reference range: 166 - 358 10*3/?L. The reference range was not used to interpret this result as normal/abnormal. MPV (test code = 47761-0) 12.1 fL 9.5-12.9 NRBC/100 WBC (test code = 0512346340) See_Comment [Automated message] The system which generated this result transmitted reference range: 0.0 - 10.0 /100 WBCs. The reference range was not used to interpret this result as normal/abnormal. NRBC x10^3 (test code = 9184539040) <0.01 See_Comment [Automated message] The system which generated this result transmitted reference range: 10*3/?L. The reference range was not used to interpret this result as normal/abnormal. GRAN MAT (NEUT) % (test code = 770-8) 70.9 % IMM GRAN % (test code = 8459619412) 0.50 % LYMPH % (test code = 736-9) 21.0 % MONO % (test code = 5905-5) 7.2 % EOS % (test code = 713-8) 0.2 % BASO % (test code = 706-2) 0.2 % GRAN MAT x10^3(ANC) (test code = 1832275052) 10.09 10*3/uL 1.88-7.09 H IMM GRAN x10^3 (test code = 8451864689) 0.07 10*3/uL 0-0.06 H LYMPH x10^3 (test code = 731-0) 2.98 10*3/uL 1.32-3.29 MONO x10^3 (test code = 742-7) 1.02 10*3/uL 0.33-0.92 H EOS x10^3 (test code = 711-2) 0.03 10*3/uL 0.03-0.39 BASO x10^3 (test code = 704-7) 0.03 10*3/uL 0.01-0.07 Lab Interpretation (test code = 22886-1) Abnormal [facility]RHO (D) IMMUNE [id number] 02:49:21* Test Item Value Reference Range Interpretation Comme nts RHIG CANDIDATE? (test code = 5055) No- see comment Patient is not a candidate for RhIg- Patient is Rh Positive.Performed at [facility] Laboratory Services - [facility] Blood [address] [address]Gy[address] Free: [phone] No. [id number] [facility] HospitalVENOUS CORD [id number] 23:39:00* Test Item Value Reference Range Interpretation Comme nts VENOUS BASE EXCESS, CORD (test code = 5404479824) mEq/L VENOUS PH, CORD (test code = 2706605906) 7.25-7.45 VENOUS PC02, CORD (test code = 2366636528) See_Comment [Automated messa ge] The system which generated this result transmitted reference range: 27 - 49 mmHg. The reference range was not used to interpret this result as normal/abnormal. VENOUS PO2, CORD (test code = 7582616085) See_Comment [Automated me ssage] The system which generated this result transmitted reference range: 17 - 41 mmHg. The reference range was not used to interpret this result as normal/abnormal. VENOUS BICARBONATE, CORD (test code = 7332242844) See_Comment [Automated messa ge] The system which generated this result transmitted reference range: 12 - 29 mEq/L. The reference range was not used to interpret this result as normal/abnormal. [facility] HospitalARTERIAL CORD [id number] 23:39:00* Test Item Value Reference Range Interpretation Comme nts BASE EXCESS, CORD (test code = 5674121996) mEq/L AC PH, CORD (BEAKER) (test code = 6917144594) 7.18-7.38 PC02, CORD (test code = 9938594190) See_Comment [Automated messa ge] The system which generated this result transmitted reference range: 32 - 66 mmHg. The reference range was not used to interpret this result as normal/abnormal. PO2, CORD (test code = 0298158880) See_Comment [Automated messa ge] The system which generated this result transmitted reference range: 10 - 30 mmHg. The reference range was not used to interpret this result as normal/abnormal. BICARBONATE, CORD (test code = 8742981297) See_Comment [Automated Bug Labsa ge] The system which generated this result transmitted reference range: 17 - 27 mEq/L. The reference range was not used to interpret this result as normal/abnormal. [facility] HospitalProtein CREAT Ratio Urine [id number] 13:03:00* Test Item Value Reference Range Interpretation Comme nts T. PROT U (test code = 2888-6) 12 mg/dL CREAT U (test code = 7507361078) 215.7 mg/dL Protein/Creatinine Ratio Uri ne (test code = 7689734689) 0.0-2.[address] HospitalUrinalysis2020-02-06 12:45:00* Test Item Value Reference Range Interpretation Comme nts APPEARANCE (test code = 8247033773) Hazy Clear A COLOR (test code = 1824360903) Yellow Yellow PH (test code = 5590712350) 4.8-8.0 SP GRAVITY (test code = 5987199054) 1.003-1.030 GLU U QUAL (test code = 9838560562) Normal Normal BLOOD (test code = 7536497037) Negative Negative INTERFERENCE FRO M ASCORBIC ACID MAY CAUSE FALSE NEGATIVE RESULT KETONES (test code = 1819361277) 5 mg/dL Negative A PROTEIN (test code = 2887-8) 30 mg/dL Negative A UROBILIN (test code = 7812790250) 4.0 mg/dL Normal A BILIRUBIN (test code = 9198865958) Negative Negative NITRITE (test code = 7192972207) Negative Negative LEUK REFUGIO (test code = 3277732647) 25/uL Negative A RBC/HPF (test code = 5306872663) See_Comment [Automated Bug Labsa ge] The system which generated this result transmitted reference range: 0 - 3 HPF. The reference range was not used to interpret this result as normal/abnormal. WBC/HPF (test code = 1826252749) See_Comment H [Automated messa ge] The system which generated this result transmitted reference range: 0 - 5 HPF. The reference range was not used to interpret this result as normal/abnormal. BACTERIA (test code = 5312671659) Moderate Negative A MUCOUS (test code = 1314983302) Marked Negative LPF A SQ EPITH (test code = 7633786437) See_Comment H [Automated messa ge] The system which generated this result transmitted reference range: <=2 HPF. The reference range was not used to interpret this result as normal/abnormal. Lab Interpretation (test code = 58045-8) Abnormal [facility] HospitalHepatitis B Surface [id number] 09:09:00 * Test Item Value Reference Range Interpretation Comme nts HBsAg Semi-Quantitative (darryl t code = 5195-3) Negative Negative [facility] HospitalLactate [id number] 08:41:00* Test Item Value Reference Range Interpretation Comme nts LDH (test code = 7555661975) 433 U/L 300-600 Lab Interpretation (test cod e = 54004-1) Normal [facility] HospitalUric Acid [id number] 08:11:00* Test Item Value Reference Range Interpretation Comme nts URIC ACID (test code = 7857021905) 4.1 mg/dL 2.9-6 Lab Interpretation (test cod e = 49837-5) Normal [facility] [id number] 08:11:00* Test Item Value Reference Range Interpretation Comme nts CREATININE (test code = 3322417809) 0.50 mg/dL 0.5-1.04 eGFR Calculation (Non-) (test code = 9731575549) mL/min/1.73m2 eGFR Calculation () (test code = 5623124460) mL/min/1.73m2 FARHAD (test code = FARHAD) Association [...] or urine or abnormalities in imaging tests). [facility] HospitalSGOT (Asparate Amino Transfer)2019-08-11 08:11:00* Test Item Value Reference Range Interpretation Comme [facility] AST(SGOT) (test code = 8746292080) 22 U/L 13-40 Lab Interpretation (test cod e = 44310-8) Normal [facility] HospitalAlanine Amino Transferase (SGPT)2019-08-11 08:11:00* Test Item Value Reference Range Interpretation Comme nts ALTv (test code = 1742-6) 10 U/L 5-35 Lab Interpretation (test cod e = 46940-0) Normal [facility] HospitalCB WITH [id number] 07:44:00* Test Item Value Reference Range Interpretation Comme nts WBC (test code = 6690-2) See_Comment [Automated Bug Labsa [employer]] The system which generated this result transmitted reference range: 4.30 - 11.10 10*3/?L. The reference range was not used to interpret this result as normal/abnormal. RBC (test code = 789-8) See_Comment [Automated Bug Labsa [employer]] The system which generated this result transmitted [...] g/dL 31.6-35.1 L RDW-SD (test code = 48044-2) 43.4 fL 39-49.9 RDW-CV (test code = 788-0) 17.0 % 12-15.5 H PLT (test code = 777-3) See_Comment [Automated messa ge] The system which generated this result transmitted reference range: 166 - 358 10*3/?L. The reference range was not used to interpret this result as normal/abnormal. MPV (test code = 35685-9) 11.5 fL 9.5-12.9 NRBC/100 WBC (test code = 2391329847) See_Comment [Automated Shareight ssage] The system which generated this result transmitted reference range: 0.0 - 10.0 /100 WBCs. The reference range was not used to interpret this result as normal/abnormal. NRBC x10^3 (test code = 2144616567) <0.01 See_Comment [Automated messa ge] The system which generated this result transmitted reference range: 10*3/?L. The reference range was not used to interpret this result as normal/abnormal. GRAN MAT (NEUT) % (test code = 770-8) 50.4 % IMM GRAN % (test code = 0837914775) 0.30 % LYMPH % (test code = 736-9) 39.9 % MONO % (test code = 5905-5) 8.3 % EOS % (test code = 713-8) 0.8 % BASO % (test code = 706-2) 0.3 % GRAN MAT x10^3(ANC) (test code = 9079170784) 3.84 10*3/uL 1.88-7.09 IMM GRAN x10^3 (test code = 3256992182) <0.03 0-0.06 LYMPH x10^3 (test code = 731-0) 3.04 10*3/uL 1.32-3.29 MONO x10^3 (test code = 742-7) 0.63 10*3/uL 0.33-0.92 EOS x10^3 (test code = 711-2) 0.06 10*3/uL 0.03-0.39 BASO x10^3 (test code = 704-7) <0.03 0.01-0.07 Lab Interpretation (test code = 33571-7) Abnormal [facility] HospitalType and Screen - ONCE [id number] 04:44:04 * Test Item Value Reference Range Interpretation Comme nts ABO & RH (test code = 20) O POSITIVE Performed at [facility] Laboratory Services - [facility] Blood [address] Free: [phone] No. [id number] IAT (test code = 1185) Negative Performed at [facility] Laboratory Services [facility] Blood [address] Free: [phone] No. [phone] [facility] HospitalPOCT URINALYSIS W SPECIFIC [id number] 19:42:00* Test Item Value Reference Range Interpretation [...] POCT U APPEAR (test code = 3267) [facility] HospitalPOMT URINALYSIS W SPECIFIC [id number] 19:42:00* Test Item Value Reference Range Interpretation [...] POCT U APPEAR (test code = 3267) [facility] URINALYSIS W SPECIFIC [id number] 21:46:00* Test Item Value Reference Range Interpretation [...] POCT U APPEAR (test code = 3267) [facility] URINALYSIS W SPECIFIC [id number] 19:31:00* Test Item Value Reference Range Interpretation [...] POCT U APPEAR (test code = 3267) [facility] URINALYSIS W SPECIFIC [id number] 19:45:00* Test Item Value Reference Range Interpretation [...] 3267) Lab Interpretation (test cod e = 65153-4) Abnormal [facility] URINALYSIS W SPECIFIC [id number] 19:45:00* Test Item Value Reference Range Interpretation [...] 3267) Lab Interpretation (test cod e = 61149-7) Abnormal [facility]"
[2024-05-30 11:27] LABS: Absolute Eosinophils 0.1 K/uL (0-0.5); Absolute Lymphocytes (CBC) 1.7 K/uL (0.7-4.9); Absolute Monocytes 0.5 K/uL (0.1-1.3); Absolute Neutrophil 5.4 K/uL (1.8-8.0); Basophils % 0.4 % (0-1.3); Eosinophils % 0.8 % (0-4.4); Hematocrit 43.6 % (36.0-45.0); Hemoglobin 14.1 g/dL (12.0-15.0); Lymphocytes % 22.7 % (15.3-44.8); MCHC 32.2 g/dL (32.0-36.0); MCV 80.7 fL (80-100); MPV 8.8 fL (7.6-11.3); Monocytes % 6.3 % (3.3-12.3); Neutrophils % 69.8 % (41.7-73.7); Platelets 267 thou/uL (152-406); RBC Red Blood Cell Count 5.41 M/uL (3.86-4.86); Red Cell Distribution Width 13.8 % (12.1-15.2)
[2024-05-30 11:47] LABS: Anion Gap 7.4 mEq/L (5.0-15.0); Potassium 3.4 mEq/L (3.5-5.1)
--- NOTE | 2024-05-30 12:37 | RAD REPORT ---
EXAM: Transvaginal OB HISTORY: VAGINAL BLEEDING COMPARISON: None TECHNIQUE: Multiple grayscale and color Doppler images were obtained in a transvaginal pelvic ultraso und. Spectral analysis of the Doppler waveforms of the ovaries were performed. FINDINGS: UTERUS: No IUP identified. No adnexal mass. No free fluid is seen in the pelvis. RIGHT OVARY: Normal flow without focal mass. LEFT OVARY: Normal flow without focal mass. IMPRESSION: No IUP identified. Therefore, cannot exclude early normal first trimester , fail ed first trimester , or early ectopic. Bilateral ovarian blood flow is present.
--- NOTE | 2024-05-30 12:54 | ER ---
Nurse's Notes [facility] Name: Emily Rahman Age: 24 yrs Sex: Female : 2000 Arrival Date: 05/30/2024 Time: 10:43 Bed 11 Private MD: Diagnosis: Complete or unspecified spontaneous without complication;UTI/ Urinary tract infection, site not specified Presentation: 05/30 10:52 Chief complaint: Patient states: reports being seen here recently and had confirmed aa5 , reports vaginal bleeding today. Denies any pain. Coronavirus screen: At this time, the client does not indicate any symptoms associated with coronavirus-19. Ebola Screen: Patient denies travel to an Ebola-affected area in the 21 days before illness onset. Initial Sepsis Screen: Does the patient meet any 2 criteria? HR > 90 bpm. Does the patient have a suspected source of infection? No. Patient's initial sepsis screen is negative. Risk Assessment: Do you want to hurt yourself or someone else? Patient reports no desire to harm self or others. Onset of symptoms was May 30, 2024. 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 cp Historical: - Allergies: 10:51 No Known Allergies; aa5 - PMHx: 10:51 Asthma; aa5 - PSHx: 10:51 Tonsillectomy; aa5 Screenin:16 [facility] ED Fall Risk Assessment (Adult) History of falling in the last 3 months, tm6 including since admission No falls in past 3 months (0 pts) Confusion or Disorientation No (0 pts) Intoxicated or Sedated No (0 pts) Impaired Gait No (0 pts) Mobility Assist Device Used No (0 pt) Altered Elimination No (0 pt) Score/Fall Risk Level 0 - 2 = Low Risk Oriented to surroundings, Maintained a safe environment, Educated pt \T\ family on fall prevention, incl call for assistance when getting out of bed. Abuse screen: Denies threats or abuse. Denies injuries from another. Nutritional screening: No deficits noted. Tuberculosis screening: No symptoms or risk factors identified. Assessment: 10:52 General: Appears comfortable, Behavior is calm, cooperative. Pain: Denies pain. Neuro: aa5 Level of Consciousness is awake, alert, obeys commands, Oriented to person, place, time, situation. Cardiovascular: Patient's skin is warm and dry. Respiratory: Airway is patent Respiratory effort is even, unlabored, Respiratory pattern is regular, symmetrical. GI: No signs and/or symptoms were reported involving the gastrointestinal system. : Reports vaginal bleeding that is bright red, moderate flow. EENT: No signs and/or symptoms were reported regarding the EENT system. Derm: Skin is dry, Skin is normal, Skin temperature is warm. Musculoskeletal: Range of motion: intact in all extremities. 11:30 Reassessment: Pt ambulatory to restroom to provide urine specimen. . aa5 11:55 Reassessment: Pt back from restroom, reports she forgot to collect urine in provided aa5 cup. Provider notified. . 11:55 Neuro: Level of Consciousness is awake, alert, obeys commands, Oriented to person, aa5 place, time, situation. Respiratory: Airway is patent Respiratory effort is even, unlabored, Respiratory pattern is regular, symmetrical. Derm: Skin is dry, Skin is normal, Skin temperature is warm. 13:16 Reassessment: discharge pending UA results. tm6 14:05 Neuro: Level of Consciousness is awake, alert, obeys commands, Oriented to person, aa5 place, time, situation. Respiratory: Airway is patent Respiratory effort is even, unlabored, Respiratory pattern is regular, symmetrical. Derm: Skin is dry, Skin is normal, Skin temperature is warm. Vital Signs: 10:52 BP 141 / 91; Pulse 110; Resp 18 S; Temp 98.5(TE); Pulse Ox 97% on R/A; Weight 99.79 kg aa5 (R); Height 5 ft. 6 in. (R); 12:00 BP 135 / 96; Pulse 98; Resp 18 S; Pulse Ox 99% on R/A; aa5 10:52 Body Mass Index 35.51 (99.79 kg, 167.64 cm) aa5 ED Course: 10:46 Patient arrived in ED. im 10:50 Jono Celestin PA is PHCP. cp 10:50 Jono Gross MD is Attending Physician. cp 10:51 Arm band placed on. aa5 10:54 Triage completed. aa5 10:55 Brianna Villegas, RN is Primary Nurse. aa5 11:19 Initial lab(s) drawn, by sd, sent to lab. Inserted saline lock: 20 gauge in right aa5 antecubital area, using aseptic technique. Blood collected. Flushed with 10 mL NS. 12:31 US Transvaginal Ob In Process Unspecified. EDMS 13:09 Test, Urine Sent. tm6 13:09 Urinalysis w/ reflexes Sent. tm6 13:16 Patient has correct armband on for positive identification. Bed in low position. Call tm6 light in reach. Provided Education on: wait times. 14:05 No provider procedures requiring assistance completed. IV discontinued, intact, aa5 bleeding controlled, No redness/swelling at site. Pressure dressing applied. Administered Medications: 13:15 Drug: Potassium PO Effervescent Tablet 25 mEq PO once; dissolve in 4 ounces of water or tm6 juice Route: PO; 14:05 Follow up: Response: No adverse reaction aa5 13:15 Drug: Dicyclomine IM 20 mg IM once Route: IM; Site: left ventrogluteal; tm6 14:05 Follow up: Response: No adverse reaction aa5 13:16 Drug: Acetaminophen PO 1000 mg PO once Route: PO; tm6 14:05 Follow up: Response: No adverse reaction aa5 Medication: 14:05 VIS not applicable for this client. aa5 Outcome: 12:54 Discharge ordered by . cp 14:05 Discharged to home ambulatory, aa5 14:05 Condition: stable 14:05 Discharge instructions given to patient, Instructed on discharge instructions, follow up and referral plans. medication usage, Demonstrated understanding of instructions, follow-up care, medications, Prescriptions given X 2, 14:08 Patient left the ED. aa5 Signatures: Dispatcher [employer] [facility] Brianna Villegas, RN RN aa5 Jono Celestin PA PA cp Mendoza, Itzel im Masterson, Tawney, RN RN tm6
--- NOTE | 2024-05-30 12:54 | EDPHYS ---
Physician Documentation [facility] Name: Emily Rahman Age: 24 yrs Sex: Female : 2000 Arrival Date: 05/30/2024 Time: 10:43 Bed 11 Private MD: ED Physician Jono Gross HPI: 05/30 11:00 This 24 yrs old Black Female presents to ER via Ambulatory with complaints of Vaginal cp Bleeding. 11:00 The patient presents to the emergency department with abdominal pain, of the lower cp abdomen, vaginal bleeding. 11:00 course: care: none, Ultrasound: the patient had an ultrasound, which cp showed no IUP observed. Previous pregnancies: in previous pregnancies patient has had no complications. Associated signs and symptoms: Pertinent negatives: diarrhea, fever, vomiting. 11:00 Patient returns to ED after being seen 4 days ago for positive test. Patient cp reports vaginal bleeding and abdominal cramping today. 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, Living 2, Verified cp Historical: - Allergies: 10:51 No Known Allergies; aa5 - PMHx: 10:51 Asthma; aa5 - PSHx: 10:51 Tonsillectomy; aa5 ROS: 11:05 Constitutional: Negative for body aches, chills, fever, poor PO intake, cp 11:05 Eyes: Negative for injury, pain, redness, and discharge, cp 11:05 Cardiovascular: Negative for chest pain, edema, palpitations, 11:05 Respiratory: Negative for cough, shortness of breath, wheezing, 11:05 Abdomen/GI: Positive for abdominal cramps, 11:05 : Positive for vaginal bleeding, 11:05 Neuro: Negative for altered mental status, dizziness, headache, weakness, 11:05 All other systems are negative, Exam: 11:10 Constitutional: The patient appears in no acute distress, alert, awake, non-toxic, well cp developed, well nourished, 11:10 Head/Face: Normocephalic, atraumatic. cp 11:10 Eyes: Periorbital structures: appear normal, Conjunctiva: normal, no exudate, no injection, Sclera: no appreciated abnormality, Lids and lashes: appear normal, bilaterally, 11:10 ENT: External ear(s): are unremarkable, Nose: is normal, Mouth: Lips: moist, Oral mucosa: moist, Posterior pharynx: Airway: no evidence of obstruction, patent, 11:10 Chest/axilla: Inspection: normal, 11:10 Cardiovascular: Rate: tachycardic, Rhythm: regular, 11:10 Respiratory: the patient does not display signs of respiratory distress, Respirations: normal, no use of accessory muscles, no retractions, labored breathing, is not present, Breath sounds: are clear throughout, no decreased breath sounds, no stridor, no wheezing, 11:10 Abdomen/GI: Inspection: abdomen appears normal, Bowel sounds: active, all quadrants, Palpation: soft, in all quadrants, mild abdominal tenderness, in the right lower quadrant and left lower quadrant, 11:10 Back: pain, is absent, ROM is normal, Vital Signs: 10:52 BP 141 / 91; Pulse 110; Resp 18 S; Temp 98.5(TE); Pulse Ox 97% on R/A; Weight 99.79 kg aa5 (R); Height 5 ft. 6 in. (R); 12:00 BP 135 / 96; Pulse 98; Resp 18 S; Pulse Ox 99% on R/A; aa5 10:52 Body Mass Index 35.51 (99.79 kg, 167.64 cm) aa5 MDM: 10:50 Medical Screening Exam initiated cp 11:00 Differential diagnosis: STD, ectopic . 12:54 Data reviewed: vital signs, nurses notes, lab test result(s), radiologic studies, cp ultrasound, and as a result, I will discharge patient. 12:54 I considered the following discharge prescriptions or medication management in the emergency department Medications were administered in the Emergency Department. See MAR. Counseling: I had a detailed discussion with the patient and/or guardian regarding the historical points, exam findings, and any diagnostic results supporting the discharge/admit diagnosis, lab results, radiology results, to return to the emergency department if symptoms worsen or persist or if there are any questions or concerns that arise at home. Special discussion: Based on the patient's Hx, exam, and Dx evaluation, there is no indication for emergent surgery or inpatient Tx. It is understood by the patient/guardian that if the Sx's persist or worsen they need to return immediately for re-evaluation. 05/30 10:59 Order name: Abo/rh Typing; Complete Time: 12:00 05/30 10:59 Order name: Basic Metabolic Panel; Complete Time: 12:00 cp 05/30 12:00 Interpretation: Normal except: K 3.4; GLUC 113; GFR 82. cp 05/30 10:59 Order name: CBC with Diff; Complete Time: 11:39 cp 05/30 11:39 Interpretation: Normal except: RBC 5.41; MCH 26.0. cp 05/30 10:59 Order name: Test, Urine; Complete Time: 13:30 cp 05/30 10:59 Order name: Quantitative Hcg; Complete Time: 12:00 cp 05/30 12:01 Interpretation: HCGQ 30; Reviewed. cp 05/30 10:59 Order name: Urinalysis w/ reflexes; Complete Time: 13:53 05/30 13:34 Order name: Urine Culture EDSC 05/30 12:01 Order name: US Transvaginal Ob; Complete Time: 12:43 05/30 10:59 Order name: IV Saline Lock; Complete Time: 11:21 05/30 10:59 Order name: Labs collected and sent; Complete Time: 11:21 cp 05/30 10:59 Order name: NPO; Complete Time: 11:01 cp Administered Medications: 13:15 Drug: Potassium PO Effervescent Tablet 25 mEq PO once; dissolve in 4 ounces of water or tm6 juice Route: PO; 14:05 Follow up: Response: No adverse reaction aa5 13:15 Drug: Dicyclomine IM 20 mg IM once Route: IM; Site: left ventrogluteal; tm6 14:05 Follow up: Response: No adverse reaction aa5 13:16 Drug: Acetaminophen PO 1000 mg PO once Route: PO; tm6 14:05 Follow up: Response: No adverse reaction aa5 Disposition Summary: 05/30/24 12:54 Discharge Ordered Notes: Location: Home cp Problem: new cp Symptoms: have improved cp Condition: Stable cp Diagnosis - Complete or unspecified spontaneous without complication cp - UTI/ Urinary tract infection, site not specified cp Followup: cp - With: Private Physician - When: 2 - 3 days - Reason: Worsening of condition Discharge Instructions: - Discharge Summary Sheet cp - Miscarriage cp - Managing Loss cp Forms: - Medication Reconciliation Form cp - Antibiotic Education cp - Prescription Opioid Use cp - Patient Portal Instructions cp - Leadership Thank You Letter cp Prescriptions: - Macrobid 100 mg Oral Capsule - take 1 capsule ORAL route every 12 hours for 7 days; 14 capsule; Refills: 0, cp Product Selection Permitted - dicyclomine 20 mg Oral tablet - take 1 tablet ORAL route 4 times per day; 30 tablet; Refills: 0, Product cp Selection Permitted Signatures: Dispatcher [employer] Brianna Loaiza RN RN aa5 Mikael Velasquez, TWX OPERATOR-C TWX OPERATOR-Cla1 Jono Celestin PA PA cp Masterson, Tawney RN RN tm6 Corrections: (The following items were deleted from the chart) 10:59 10:59 ABO/RH TYPING+BB.LAB.BRZ ordered. EDMS EDMS 10:59 10:59 BASIC METABOLIC PANEL+C.LAB.BRZ ordered. EDMS EDMS 10:59 10:59 CBC+H.LAB.BRZ ordered. EDMS EDMS 10:59 10:59 Test, Urine+UC.LAB.BRZ ordered. EDMS EDMS 10:59 10:59 QUANTITATIVE HCG+C.LAB.BRZ ordered. EDMS EDMS 10:59 10:59 Urinalysis+U.LAB.BRZ ordered. EDMS EDMS
[2024-05-30] MEDS ORDERED: DICYCLOMINE HCL 20 MG/2 ML AMP IM ONE (13:02)
[2024-05-30] MEDS ORDERED: ACETAMINOPHEN 500 MG TAB ONE (13:02)
[2024-05-30] MEDS ORDERED: POTASSIUM 25 MEQ EFFERV TAB ONE (13:03)
[2024-05-30 13:27] LABS: Specific Gravity 1.013 (1.005-1.030)
[2024-05-30 13:31] LABS: Specific Gravity 1.013 (1.005-1.030); Urine Bacteria None Seen /HPF (<20); Urine Bilirubin NEGATIVE (Negative); Urine Blood 3+ (OVER) (Negative); Urine Clarity Extremely Turbid (Clear); Urine Color Brown (Yellow); Urine Culture Reflex Order REFLEXED; Urine Glucose NEGATIVE (Negative); Urine Ketones NEGATIVE (Negative); Urine Microscopic Reflex YN ORDER UMIC; Urine Mucus 1+ /HPF (None Seen); Urine Nitrite NEGATIVE (Negative); Urine Protein 1+ (Negative); Urine RBC >50 /HPF (None Seen); Urine Urobilinogen Normal (Normal); Urine WBC >50 /HPF (<5)
[2024-05-30 16:01] VITALS: BP 141/91; TEMP 98.5; O2SAT 97
== END 2024-05-30 14:08 | disposition home or self-care (01) ==
LOC: ER 10:43
DX: O03.9 Complete or unspecified spontaneous abortion without complication (principal); N39.0 Urinary tract infection, site not specified
CPT/HCPCS: 87088; 85025; 81001; 87086; 80048; 36415; 86900; 81025; 86901; 84702; 76817; 96372; 99284; J0500

== ENCOUNTER 2024-09-20 21:08 | Emergency (ER) | payer OTHER ==
--- OUTSIDE RECORDS SUMMARY | 2024-09-20 21:12 | XMS REPORT | Continuity of Care Document ---
Author Name Unknown Address [address] [place] [address] Organization [facility] Address [address] [place] [address] Care Team Providers Care Drawing Kiln Supervisor Name Role Phone THERESA LORD Primary Care Physician Unav ailable CUAUHTEMOC JEONG Attending Clinician Unavailable CUAUHTEMOC JEONG Attending Clinician Unavailable [email or web address]_S Attending Clinician UnavailJOSIE Guzman Attending Clinician Josie Johnston CNM Attending Clinician [phone] Doctor Unassigned, [place] Attending Clinician U navailable THERESA LORD Attending Clinician Unavail able Risa WHTheresa GRUBBS Attending Clinician + Visit, [facility] Nurse Attending Clinician Sabrina Caballero MD Attending Clinician [phone] Ami Paige Attending Clinician [phone] Ultrasound, Zane-Mfjosiah Attending Clinician Radha Granados Attending Clinician [phone] [email or web address]_S Admitting Clinician Sabrina Mistry MD Admitting Clinician [phone] Payers Payer Name Policy Type Policy Number Effective Date Expirati on Date Source [employer] [id number] 2022 00:00:00 [place] [id number] 2022 00:00:00 [facility] [id number] 00:00:00 Problems Condition Name Condition Details Condition Category Status Onset Date Resolution Date Last Treatment Date Treating Clinician Comments Source Nexplanon in place Nexplanon in place Disease Active 5- 00:00: 00 [facility] Other general counseling and advice for contracept margie management Other general counseling and advice for contracept margie management Disease Active 5- 00:00: 00 [facility] Routine follow-up Routine follow-up Disease Active 2- 00:00: 00 [facility] (spontaneo us vaginal delivery) (spontaneo us vaginal delivery) Disease Active 2-07 00:00: 00 [facility] Single live Single live Disease Active 2-07 00:00: 00 [facility] History of asthma History of asthma Disease Active 2-07 00:00: 00 [facility] Gestationa l hypertensi on Gestationa l hypertensi on Disease Active 2-06 00:00: 00 [facility] Gestationa l hypertensi on Gestationa l hypertensi on Disease Active 2-06 00:00: 00 [facility] Obesity (BMI 30-39.9) Obesity (BMI 30-39.9) Disease Active 2-05 00:00: 00 [facility] 39 weeks gestation of 39 weeks gestation of Disease Active 2-05 00:00: 00 [facility] Susceptibl e to varicella (non-immun e), currently Susceptibl e to varicella (non-immun e), currently Disease Active 12-20 00:00: 00 Overview: Formattin g of this note might be different from the original. Address pp [facility] Multiparit y Multiparit y Disease Active 614 00:00: 00 [facility] Obesity affecting Obesity affecting Disease Active 2016-07 0-18 00:00: 00 [facility] Supervisio n of high risk , antepartum Supervisio n of high risk , antepartum Disease Active 2016-07 00:00: 00 [facility] Allergies, Adverse Reactions, Alerts Allergy Name Allergy Type Status Severity Reaction(s) Onset Date Inactive Date Treating Clinician Comments Source NO KNOWN ALLERGIE S Drug Class Active [facility] Social History Social Habit Start Date Stop Date Quantity Comments Source ASSERTION 2018-11-24 00:00:00 [facility] Exposure to SARS-CoV-2 (event) 2022-09-26 00:00:00 2022-10-06 08:16:00 Not sure [facility] Tobacco use and exposure 2022-10-06 00:00:00 2022-10-06 00:00:00 Smokeless tobacco non-user [facility] Alcohol intake 2022-10-06 00:00:00 2022-10-06 00:00:00 Current non-drinker of alcohol (finding) [facility] Alcohol Comment 2018-12-17 00:00:00 2018-12-17 00:00:00 last sexual intercourse 12/09/2018 [facility] Sex Assigned At 2000 00:00:00 2000 00:00:00 [facility] Smoking Status Start Date Stop Date Source Never smoked tobacco [facility] Medications Ordered Medication Name Filled Medication Name Start Date Stop Date Current Medication? Ordering Clinician Indication Dosage Frequency Signature (SIG) Comments Components Source etonogestre l (NEXPLANON) implant 68 mg 09-22 21:45: 00 09-22 20:45 :00 No [id number] 68mg [facility] varicella virus vaccine live (VARIVAX (PF)) injection 0.5 mL 08-13 13:26: 45 Yes .5mL 0.5 mL, Subcutaneo us, ONCE-PRIOR TO DISCHARGE, 1 dose, Starting 08/13/19 at 0726, Until Discontinu ed, Routine, Give vaccine prior to discharge [facility] ferrous sulfate tablet 325 mg 08-12 15:00: 00 Yes 325mg 325 mg, Oral, DAILY, First dose on Thu08/12/19 at 0900, Until Discontinu ed, Routine [facility] ibuprofen (IBU) tablet 600 mg 08-12 02:45: 55 Yes 600mg 600 mg, Oral, Q6HPRN, Starting [facility] 08/11/19 at 2044, Until Discontinu ed, Routine, Pain (scale 4-6) [facility] acetaminoph en (TYLENOL) tablet 650 mg 08-12 02:45: 55 Yes 650mg 650 mg, Oral, Q6HPRN, Starting [facility] 08/11/19 at 2044, Until Discontinu ed, Routine, Pain (scale 1-3) [facility] diphenhydrA MINE (BENADRYL) tablet 25 mg 08-12 02:45: 55 Yes 25mg 25 mg, Oral, Q6HPRN, Starting [facility] 08/11/19 at 2044, Until Discontinu ed, Routine, Sleep, Itching [facility] ondansetron (ZOFRAN (PF)) injection 4 mg 08-12 02:45: 55 Yes 4mg 4 mg, Slow IV Push, Q8HPRN, Starting [facility] 08/11/19 at 2044, Until Discontinu ed, Routine, Nausea and Vomiting (N/V) [facility] simethicone (GAS RELIEF (SIMETHICON E)) chewable tablet 160 mg 08-12 02:45: 55 Yes 160mg 160 mg, Oral, PC+HSPRN, Starting [facility] 08/11/19 at 2044, Until Discontinu ed, Routine, Gas [facility] docusate calcium (SURFAK) capsule 240 mg 08-12 02:45: 55 Yes 240mg 240 mg, Oral, QDAILYPRN, Starting [facility] 08/11/19 at 2044, Until Discontinu ed, Routine, Constipati on [facility] magnesium hydroxide (MILK OF MAGNESIA) 400 mg/5 mL suspension 30 mL 08-12 02:45: 55 Yes 30mL 30 mL, Oral, QDAILYPRN, Starting [facility] 08/11/19 at 2044, Until Discontinu ed, Routine, Constipati on [facility] benzocaine- menthol (DERMOPLAST ) 20-0.5 % topical spray 08-12 02:45: 55 Yes Topical, PRN, Starting [facility] 08/11/19 at 2045, Until Discontinu ed, Routine, Perineum discomfort [facility] docusate calcium 240 mg capsule 08-12 00:00: 00 09-25 00:00 :00 No [id number] 240mg Take 1 capsule by mouth once daily as needed for Constipati on. [facility] ibuprofen 600 mg tablet 08-12 00:00: 00 09-25 00:00 :00 No [id number] 600mg Take 1 tablet by mouth every 6 (six) hours as needed (Pain). Take with food or milk. [facility] Iron Fum & P-FA-Vit B & C No.9 (INTEGRA PLUS) 125 mg iron- 1 mg Cap 08-12 00:00: 00 09-25 00:00 :00 No [id number] 1{capsu le} Take 1 capsule by mouth daily. [facility] amnioinfusi on IV infusion via GRAVITY [...] until the liter is complete.& nbsp;&nbsp ;Notify Operational Risk Consultant if uterine resting tone exceeds 25 mmHg at any time during the amnioinfus ion. Obst etrics (KARINA) Aminoinfus ion Orders
[facility] lactated ringers IV infusion 500 mL 08-11 17:45: 00 08-11 16:45 :00 No 500mL at 999 mL/hr, 500 mL, IV Infusion, ONCE, 1 dose, [facility] 08/11/19 at 1145, Routine [facility] ondansetron (ZOFRAN (PF)) injection 4 mg 08-11 08:15: 00 08-11 07:12 :00 No 4mg 4 mg, Slow IV Push, ONCE, 1 dose, [facility] 08/11/19 at 0215, Routine [facility] D5W-LR IV infusion 1,000 mL 08-11 04:00: 00 08-12 02:46 :09 No 1000mL at 125 mL/hr, IV Infusion, CONTINUOUS , Starting 08/10/19 at 2200, Until [facility] 08/11/19 at 2046, Routine [facility] LR 1000 mL + oxytocin 20 units IV Solution 08-11 03:55: 08 08-12 02:46 :09 No 2mU/min 2 julio-unit s/min (6 mL/hr), at 6 mL/hr, IV Infusion, TITRATE, Starting 08/10/19 at 2155, Until [facility] 08/11/19 at 2045, RADHA, Oxytocin Induction / Augmentati on of Labor. [facility] sodium citrate-cit jayece acid (BICITRA) 500-334 mg/5 mL solution 30 mL 08-11 03:51: 29 08-11 16:38 :00 No 30mL 30 mL, Oral, PRE-PROCED URE ONCE, 1 dose, Starting 08/10/19 at 2151, Until Discontinu ed, Routine, Surgery/Pr ocedure [facility] ferrous sulfate 325 mg (65 mg iron) tablet 12-10 00:00: 00 08-12 00:00 :00 No [id number] 325mg Take 1 tablet by mouth 2 (two) times daily. [facility] ascorbic acid, vitamin C, 500 mg tablet 12-10 00:00: 00 08-12 00:00 :00 No [id number] 500mg Take 1 tablet by mouth 3 (three) times daily. [facility] doxylamine- pyridoxine, vit B6, (DICLEGIS) 10-10 mg per tablet 2016-07 00:00: 00 08-12 00:00 :00 No [id number] 2{tbl} Take 2 tablets by mouth at bedtime. [facility] PNV 67-iron ps-folate no.1-dha (VITAFOL ULTRA) 29 mg iron- 1 mg-200 mg Cap 2017- 0-18 00:00: 00 08-12 00:00 :00 No [id number] 1{each} Take 1 Each by mouth daily. [facility] Vital Signs Vital Name Observation Time Observation Value Comments S ource Systolic blood pressure 2022-10-06 13:30:00 113 mm[Hg] [facility] Diastolic blood pressure 2022-10-06 13:30:00 73 mm[Hg] [facility] Heart rate 2022-10-06 13:30:00 77 /min [facility] Body temperature 2022-10-06 13:30:00 36.17 Isa [facility] Respiratory rate 2022-10-06 13:30:00 18 /min [facility] Body height 2022-10-06 13:30:00 162.6 cm [facility] Body weight 2022-10-06 13:30:00 106.051 kg [facility] BMI 2022-10-06 13:30:00 40.13 kg/m2 [facility] Systolic blood pressure 2022-09-25 18:35:00 125 mm[Hg] [facility] Diastolic blood pressure 2022-09-25 18:35:00 84 mm[Hg] [facility] Heart rate 2022-09-25 18:35:00 110 /min [facility] Body temperature 2022-09-25 18:35:00 36.78 Isa [facility] Respiratory rate 2022-09-25 18:35:00 20 /min [facility] Body height 2022-09-25 18:35:00 162.6 cm [facility] Body weight 2022-09-25 18:35:00 103.964 kg [facility] BMI 2022-09-25 18:35:00 39.34 kg/m2 [facility] Systolic blood pressure 2020-02-20 18:45:00 109 mm[Hg] [facility] Diastolic blood pressure 2020-02-20 18:45:00 73 mm[Hg] [facility] Heart rate 2020-02-20 18:45:00 77 /min [facility] Body temperature 2020-02-20 18:45:00 36.89 Isa [facility] Respiratory rate 2020-02-20 18:45:00 16 /min [facility] Body height 2020-02-20 18:45:00 162.6 cm [facility] Body weight 2020-02-20 18:45:00 91.768 kg [facility] BMI 2020-02-20 18:45:00 34.73 kg/m2 [facility] Systolic blood pressure 2019-09-23 20:15:00 125 mm[Hg] [facility] Diastolic blood pressure 2019-09-23 20:15:00 77 mm[Hg] [facility] Heart rate 2019-09-23 20:15:00 78 /min [facility] Body temperature 2019-09-23 20:15:00 37.11 Isa [facility] Respiratory rate 2019-09-23 20:15:00 16 /min [facility] Body height 2019-09-23 20:15:00 162.6 cm [facility] Body weight 2019-09-23 20:15:00 85.475 kg [facility] BMI 2019-09-23 20:15:00 32.35 kg/m2 [facility] Systolic blood pressure 2019-09-01 16:15:00 114 mm[Hg] [facility] Diastolic blood pressure 2019-09-01 16:15:00 68 mm[Hg] [facility] Heart rate 2019-09-01 16:15:00 74 /min [facility] Body temperature 2019-09-01 16:15:00 36.72 Isa [facility] Respiratory rate 2019-09-01 16:15:00 16 /min [facility] Body height 2019-09-01 16:15:00 162.6 cm [facility] Body weight 2019-09-01 16:15:00 85.333 kg [facility] BMI 2019-09-01 16:15:00 32.29 kg/m2 [facility] Systolic blood pressure 2019-08-18 21:56:00 124 mm[Hg] [facility] Diastolic blood pressure 2019-08-18 21:56:00 80 mm[Hg] [facility] Heart rate 2019-08-18 21:56:00 92 /min [facility] Body temperature 2019-08-18 21:56:00 37.22 Isa [facility] Respiratory rate 2019-08-18 21:56:00 16 /min [facility] Body height 2019-08-18 21:56:00 160 cm [facility] Body weight 2019-08-18 21:56:00 86.592 kg [facility] BMI 2019-08-18 21:56:00 33.82 kg/m2 [facility] Systolic blood pressure 2019-08-13 14:00:00 119 mm[Hg] [facility] Diastolic blood pressure 2019-08-13 14:00:00 76 mm[Hg] [facility] Heart rate 2019-08-13 14:00:00 74 /min [facility] Body temperature 2019-08-13 14:00:00 37 Isa [facility] Respiratory rate 2019-08-13 14:00:00 18 /min [facility] Oxygen saturation in Arterial blood by Pulse oximetry 2019-08-13 14:00:00 99 /min [facility] Body height 2019-08-11 02:00:00 162 cm [facility] Body weight 2019-08-11 02:00:00 94.348 kg [facility] BMI 2019-08-11 02:00:00 35.95 kg/m2 [facility] Systolic blood pressure 2019-08-03 19:39:00 116 mm[Hg] [facility] Diastolic blood pressure 2019-08-03 19:39:00 75 mm[Hg] [facility] Heart rate 2019-08-03 19:39:00 116 /min [facility] Body temperature 2019-08-03 19:39:00 37 Isa [facility] Respiratory rate 2019-08-03 19:39:00 16 /min [facility] Body height 2019-08-03 19:39:00 165.1 cm [facility] Body weight 2019-08-03 19:39:00 95.369 kg [facility] BMI 2019-08-03 19:39:00 34.99 kg/m2 [facility] Systolic blood pressure 2019-07-26 21:14:00 134 mm[Hg] [facility] Diastolic blood pressure 2019-07-26 21:14:00 87 mm[Hg] [facility] Heart rate 2019-07-26 21:14:00 92 /min [facility] Body temperature 2019-07-26 21:14:00 37.72 Isa [facility] Respiratory rate 2019-07-26 21:14:00 16 /min [facility] Body height 2019-07-26 21:14:00 165.1 cm [facility] Body weight 2019-07-26 21:14:00 96.389 kg [facility] BMI 2019-07-26 21:14:00 35.36 kg/m2 [facility] Systolic blood pressure 2019-03-22 19:25:00 113 mm[Hg] [facility] Diastolic blood pressure 2019-03-22 19:25:00 72 mm[Hg] [facility] Heart rate 2019-03-22 19:25:00 93 /min [facility] Body temperature 2019-03-22 19:25:00 36.94 Isa [facility] Respiratory rate 2019-03-22 19:25:00 16 /min [facility] Body height 2019-03-22 19:25:00 160 cm [facility] Body weight 2019-03-22 19:25:00 93.441 kg [facility] BMI 2019-03-22 19:25:00 36.49 kg/m2 [facility] Systolic blood pressure 2019-02-21 19:44:00 134 mm[Hg] [facility] Diastolic blood pressure 2019-02-21 19:44:00 77 mm[Hg] [facility] o [facility] Heart rate 2019-02-21 19:44:00 101 /min [facility] Body temperature 2019-02-21 19:44:00 37 Isa [facility] Respiratory rate 2019-02-21 19:44:00 16 /min [facility] Body height 2019-02-21 19:44:00 160 cm [facility] Body weight 2019-02-21 19:44:00 94.121 kg [facility] BMI 2019-02-21 19:44:00 36.76 kg/m2 [facility] Procedures Procedure Date / Time Performed Performing Clinician Source DISCLOSURE AND CONSENT, MEDICAL AND SURGICAL PROCEDURES 2022-10-06 05:01:00 Doctor Unassigned, [place] [facility] GARDASIL 9 (HPV 9V) VACCINE 2022-09-25 18:54:20 Theresa Lord [facility] ASSIGNMENT OF BENEFITS 2022-09-25 18:15:42 Docto ludivina Unassigned, [place] [facility] GARDASIL 9 (HPV 9V) VACCINE 2020-02-20 19:16:37 Theresa Lord [facility] ASSIGNMENT OF BENEFITS 2020-02-20 18:38:40 Docsang r Unassigned, [place] [facility] GARDASIL 9 (HPV 9V) VACCINE 2019-09-23 21:08:55 Theresa Lord [facility] POCT TEST 2019-09-23 20:16:00 Jeet Lord [facility] CONSENT FOR CONTRACEPTION 2019-09-23 05:01:00 Doctor Unassigned, [place] [facility] CBC WITH DIFFERENTIAL 2019-08-12 09:42:00 Tian Alberto [facility] VENOUS CORD GAS 2019-08-11 23:27:00 Artem Carranza [facility] URINALYSIS 2019-08-11 12:19:00 Pauly Hill [facility] PROTEIN CREAT RATIO URINE RANDOM 2019-08-11 12:19:00 Pauly Hill [facility] LACTATE DEHYDROGENASE 2019-08-11 07:31:00 Nell Hill [facility] CBC WITH DIFFERENTIAL 2019-08-11 07:31:00 Nell Hill [facility] SGOT (ASPARTATE AMINO TRANSFER) 2019-08-11 04:05:00 Sergio Pauly [facility] CREATININE 2019-08-11 04:05:00 Pauly Hill [facility] ALANINE AMINO TRANSFERASE(SGPT 2019-08-11 04:05:00 Sergio [facility] URIC ACID 2019-08-11 04:05:00 Sergio Pauly [facility] HEPATITIS B SURFACE ANTIGEN 2019-08-11 04:05:00 Pedro Carranza [facility] GALV ONLY - SYPHILIS IGG/IGM 2019-08-11 04:05:00 Pedro Carranza [facility] HB ABO GROUPING 2019-08-11 04:04:00 Artem Carranza [facility] RHO (D) IMMUNE GLOBULIN 2019-08-11 04:04:00 Nell Alberto [facility] POCT URINALYSIS 2019-08-03 19:42:00 Theresa Lord [facility] POCT URINALYSIS 2019-07-26 21:46:00 Theresa Lord [facility] POCT URINALYSIS 2019-03-22 19:31:00 Theresa Lord [facility] POCT URINALYSIS 2019-02-21 19:44:00 Theresa Lord [facility] Encounters Start Date/Time End Date/Time Encounter Type Admission Type Attending Clinicians Care Facility Care Department Encounter ID Source 2024-06-14 14:00:00 2024-06-14 14:00:00 Outpatient CUAUHTEMOC POWER VIVIAN [facility] [id number] [facility] 2023-05-02 00:00:00 2023-05-02 00:00:00 Outpatient GC_GCBZW_Ka henny_Alexa [facility] [id number] [facility] 2022-10-06 08:30:00 2022-10-06 08:59:30 Outpatient R JOSIE ERAZO [facility] [id number] [facility] 2022-10-06 08:30:00 2022-10-06 08:59:30 Office Visit Josie Erazo [facility] 1.840.114 350.1.13.10 4.2.7.2.686 [id number] [facility] 2022-10-06 00:00:00 2022-10-06 00:00:00 Orders Only Doctor Unassigned, [place] [facility] 1.840.114 350.1.13.10 4.2.7.2.686 [id number] [facility] 2022-09-25 13:15:00 2022-09-25 14:35:28 Outpatient R THERESA LORD [facility] [id number] [facility] 2022-09-25 13:15:00 2022-09-25 14:35:28 Office Visit Theresa Lord [facility] 1.840.114 350.1.13.10 4.2.7.2.686 [id number] [facility] 2022-09-25 00:00:00 2022-09-25 00:00:00 Orders Only Doctor Unassigned, [place] [facility] 1..114 350.1.13.10 4.2.7.2.686 [id number] [facility] 2020-05-23 14:00:00 2020-05-23 14:00:00 Outpatient R [facility] [id number] [facility] 2020-02-20 13:40:12 2020-02-20 14:05:43 [facility] 1.84.114 350.1.13.10 4.2.7.2.686 [id number] [facility] 2020-02-20 13:30:00 2020-02-20 13:30:00 Outpatient R THERESA LORD [facility] [id number] [facility] 2020-02-20 00:00:00 2020-02-20 00:00:00 Orders Only Doctor Unassigned, [place] [facility] 1..114 350.1.13.10 4.2.7.2.686 [id number] [facility] 2019-11-23 13:00:00 2019-11-23 13:00:00 Outpatient R [facility] [id number] [facility] 2019-11-09 14:15:00 2019-11-09 14:15:00 Outpatient R THERESA LORD [facility] [id number] [facility] 2019-11-09 12:42:08 2019-11-09 12:57:08 Telemedici ne Visit Theresa Lord [facility] 1.84.114 350.1.13.10 4.2.7.2.686 [id number] [facility] 2019-10-07 13:30:00 2019-10-07 13:30:00 Outpatient R THERESA LORD [facility] [id number] [facility] 2019-10-06 08:45:00 2019-10-06 08:45:00 Outpatient R THERESA LORD [facility] [id number] [facility] 2019-10-06 00:00:00 2019-10-06 00:00:00 Telephone Theresa Lord [facility] 1.2.114 350.1.13.10 4.2.7.2.686 [id number] [facility] 2019-09-23 15:04:55 2019-09-23 16:09:38 Office Visit Theresa Lord [facility] 1.840.114 350.1.13.10 4.2.7.2.686 [id number] [facility] 2019-09-23 15:00:00 2019-09-23 15:00:00 Outpatient R THERESA LORD [facility] [id number] [facility] 2019-09-23 00:00:00 2019-09-23 00:00:00 Orders Only Doctor Unassigned, [place] [facility] 1.840.114 350.1.13.10 4.2.7.2.686 [id number] [facility] 2019-09-01 10:02:22 2019-09-01 10:17:22 Routine Visit Theresa Lord [facility] 1.0.114 350.1.13.10 4.2.7.2.686 [id number] [facility] 2019-09-01 09:30:00 2019-09-01 09:30:00 Outpatient R THERESA LORD [facility] [id number] [facility] 2019-08-18 09:28:08 2019-08-18 09:52:41 Nurse Visit Visit, [facility] Nurse Theresa Lord [facility] 1..114 350.1.13.10 4.2.7.2.686 [id number] [facility] 2019-08-10 18:34:00 2019-08-13 14:36:00 Hospital Encounter Sabirna Vickers [facility] 1.2.840.114 350.1.13.10 4.2.7.2.686 [id number] [facility] 2019-08-03 13:13:09 2019-08-03 13:53:30 Routine Visit Theresa Lord [facility] 1.2.840.114 350.1.13.10 [id number] [id number] [facility] 2019-07-26 14:51:29 2019-07-26 15:37:05 Routine Visit Theresa Lord [facility] 1.2.840.114 350.1.13.10 4.2.7.2.686 [id number] [facility] 2019-03-22 14:01:38 2019-03-22 14:51:32 Routine Visit Theresa Lord Emily N [facility] & CHILD [facility] 1.2.840.114 350.1.13.10 4.2.7.2.686 [id number] [facility] 2019-03-22 00:00:00 2019-03-22 00:00:00 Telephone Theresa Lord [facility] 1.2.840.114 350.1.13.10 4.2.7.2.686 [id number] [facility] 2019-02-23 11:21:38 2019-02-23 11:46:18 Emergency Man Visit Ultrasound, Sabrina Prabhakar [facility] & CHILD [facility] 1.2.840.114 350.1.13.10 4.2.7.2.686 [id number] [facility] 2019-02-23 00:00:00 2019-02-23 00:00:00 Abstract Radha Arboleda [facility] 1.2.840.114 350.1.13.10 4.2.7.2.686 [id number] [facility] 2019-02-21 14:37:15 2019-02-21 15:06:20 Routine Visit Radha Arboleda [facility]ILD [facility] 1.2.840.114 350.1.13.10 4.2.7.2.686 [id number] [facility] Results Test Description Test Time Test Comments Results Result Co mments Source [facility] [id number] 20:17:00* Test Item Value Reference Range Interpretation Comme nts POCT PREG (test code = 1605) Negative On board controls acceptable with C Line (test code = 3574) Yes POCT PREG LOT # (test code = 3575) POCT PREG TEST DATE ( test code = 3576) [facility]GAL[facility] - SYPHILIS [id number] 14:54:00* Test Item Value Reference Range Interpretation Comme nts Syphilis IgG/IgM (test code = 19777-6) Non-reactive Non-reactive FARHAD (test code = FARHAD) Non-reactive - No serologic evidence of T. pallidum infection. Cannot exclude incubating or early syphilis. Submit a second specimen in 2-4 weeks if syphilis is clinically suspected. Equivocal - Further testing to follow. Reactive - Further testing to follow. Lab Interpretation (test code = 32505-1) Normal [facility] CenterCBC WITH [id number] 10:19:00* Test Item Value Reference Range Interpretation [...] g/dL 31.6-35.1 L RDW-SD (test code = 98441-4) 44.3 fL 39-49.9 RDW-CV (test code = 788-0) 16.9 % 12-15.5 H PLT (test code = 777-3) See_Comment [Automated message] The system which generated this result transmitted reference range: 166 - 358 10*3/?L. The reference range was not used to interpret this result as normal/abnormal. MPV (test code = 56297-0) 12.1 fL 9.5-12.9 NRBC/100 WBC (test code = 7463445872) See_Comment [Automated message] The system which generated this result transmitted reference range: 0.0 - 10.0 /100 WBCs. The reference range was not used to interpret this result as normal/abnormal. NRBC x10^3 (test code = 2673202202) <0.01 See_Comment [Automated message] The system which generated this result transmitted reference range: 10*3/?L. The reference range was not used to interpret this result as normal/abnormal. GRAN MAT (NEUT) % (test code = 770-8) 70.9 % IMM GRAN % (test code = 3345211152) 0.50 % LYMPH % (test code = 736-9) 21.0 % MONO % (test code = 5905-5) 7.2 % EOS % (test code = 713-8) 0.2 % BASO % (test code = 706-2) 0.2 % GRAN MAT x10^3(ANC) (test code = 8475461030) 10.09 10*3/uL 1.88-7.09 H IMM GRAN x10^3 (test code = 1318825509) 0.07 10*3/uL 0-0.06 H LYMPH x10^3 (test code = 731-0) 2.98 10*3/uL 1.32-3.29 MONO x10^3 (test code = 742-7) 1.02 10*3/uL 0.33-0.92 H EOS x10^3 (test code = 711-2) 0.03 10*3/uL 0.03-0.39 BASO x10^3 (test code = 704-7) 0.03 10*3/uL 0.01-0.07 Lab Interpretation (test code = 27373-7) Abnormal [facility]HO (D) IMMUNE [id number] 02:49:21* Test Item Value Reference Range Interpretation Comme nts RHIG CANDIDATE? (test code = 5055) No- see comment Patient is not a candidate for RhIg- Patient is Rh Positive.Performed at [facility] Laboratory Services - [facility] Blood [address] [address] Free: [phone] No. [id number] [facility] CenterVENOUS CORD [id number] 23:39:00* Test Item Value Reference Range Interpretation Comme [facility] VENOUS BASE EXCESS, CORD (test code = 2875503502) mEq/L VENOUS PH, CORD (test code = 2161156873) 7.25-7.45 VENOUS PC02, CORD (test code = 4674091599) See_Comment [Automated messa ge] The system which generated this result transmitted reference range: 27 - 49 mmHg. The reference range was not used to interpret this result as normal/abnormal. VENOUS PO2, CORD (test code = 3105519911) See_Comment [Automated me ssage] The system which generated this result transmitted reference range: 17 - 41 mmHg. The reference range was not used to interpret this result as normal/abnormal. VENOUS BICARBONATE, CORD (test code = 3501128474) See_Comment [Automated messa ge] The system which generated this result transmitted reference range: 12 - 29 mEq/L. The reference range was not used to interpret this result as normal/abnormal. [facility] CenterARTERIAL CORD [id number] 23:39:00* Test Item Value Reference Range Interpretation Comme nts BASE EXCESS, CORD (test code = 8217895576) mEq/L AC PH, CORD (BEAKER) (test code = 6269800981) 7.18-7.38 PC02, CORD (test code = 0184366041) See_Comment [Automated messa ge] The system which generated this result transmitted reference range: 32 - 66 mmHg. The reference range was not used to interpret this result as normal/abnormal. PO2, CORD (test code = 0518482184) See_Comment [Automated messa ge] The system which generated this result transmitted reference range: 10 - 30 mmHg. The reference range was not used to interpret this result as normal/abnormal. BICARBONATE, CORD (test code = 9681406196) See_Comment [Automated messa ge] The system which generated this result transmitted reference range: 17 - 27 mEq/L. The reference range was not used to interpret this result as normal/abnormal. [facility] CenterProtein CREAT Ratio Urine [id number] 13:03:00* Test Item Value Reference Range Interpretation Comme nts T. PROT U (test code = 2888-6) 12 mg/dL CREAT U (test code = 1377194217) 215.7 mg/dL Protein/Creatinine Ratio Uri ne (test code = 7839146183) 0.0-2.0 [facility] CenterUrinalysis2020-02-06 12:45:00* Test Item Value Reference Range Interpretation Comme nts APPEARANCE (test code = 9987701885) Hazy Clear A COLOR (test code = 4827701321) Yellow Yellow PH (test code = 1860737444) 4.8-8.0 SP GRAVITY (test code = 6717046858) 1.003-1.030 GLU U QUAL (test code = 3281565509) Normal Normal BLOOD (test code = 1118639239) Negative Negative INTERFERENCE FRO M ASCORBIC ACID MAY CAUSE FALSE NEGATIVE RESULT KETONES (test code = 8940273804) 5 mg/dL Negative A PROTEIN (test code = 2887-8) 30 mg/dL Negative A UROBILIN (test code = 8135341585) 4.0 mg/dL Normal A BILIRUBIN (test code = 7892439919) Negative Negative NITRITE (test code = 9251570734) Negative Negative LEUK REFUGIO (test code = 7620958549) 25/uL Negative A RBC/HPF (test code = 4073885602) See_Comment [Automated messa ge] The system which generated this result transmitted reference range: 0 - 3 HPF. The reference range was not used to interpret this result as normal/abnormal. WBC/HPF (test code = 7173574848) See_Comment H [Automated messa ge] The system which generated this result transmitted reference range: 0 - 5 HPF. The reference range was not used to interpret this result as normal/abnormal. BACTERIA (test code = 4053192396) Moderate Negative A MUCOUS (test code = 6354999907) Marked Negative LPF A SQ EPITH (test code = 6477571779) See_Comment H [Automated messa ge] The system which generated this result transmitted reference range: <=2 HPF. The reference range was not used to interpret this result as normal/abnormal. Lab Interpretation (test code = 46687-9) Abnormal [facility] CenterHepatitis B Surface [id number] 09:09:00 * Test Item Value Reference Range Interpretation Comme nts HBsAg Semi-Quantitative (darryl t code = 5195-3) Negative Negative [facility] CenterLactate [id number] 08:41:00* Test Item Value Reference Range Interpretation Comme [facility] LDH (test code = 7383013009) 433 U/L 300-600 Lab Interpretation (test cod e = 23069-2) Normal [facility] CenterUric Acid [id number] 08:11:00* Test Item Value Reference Range Interpretation Comme [facility] URIC ACID (test code = 5735685128) 4.1 mg/dL 2.9-6 Lab Interpretation (test cod e = 70001-5) Normal [facility] [id number] 08:11:00* Test Item Value Reference Range Interpretation Comme [facility] CREATININE (test code = 5769731344) 0.50 mg/dL 0.5-1.04 eGFR Calculation (Non-) (test code = 5346306290) mL/min/1.73m2 eGFR Calculation () (test code = 8529776062) mL/min/1.73m2 FARHAD (test code = FARHAD) Association [...] or urine or abnormalities in imaging tests). [facility] CenterSGOT (Asparate Amino Transfer)2019-08-11 08:11:00* Test Item Value Reference Range Interpretation Comme [facility] AST(SGOT) (test code = 1168981752) 22 U/L 13-40 Lab Interpretation (test cod e = 76114-6) Normal [facility] CenterAlanine Amino Transferase (SGPT)2019-08-11 08:11:00* Test Item Value Reference Range Interpretation Comme nts ALTv (test code = 1742-6) 10 U/L 5-35 Lab Interpretation (test cod e = 26188-9) Normal [facility] CenterCB WITH [id number] 07:44:00* Test Item Value Reference Range Interpretation Comme nts WBC (test code = 6690-2) See_Comment [Automated [email or web address]] The system which generated this result transmitted reference range: 4.30 - 11.10 10*3/?L. The reference range was not used to interpret this result as normal/abnormal. RBC (test code = 789-8) See_Comment [Automated [employer]] The system which generated this result [...] g/dL 31.6-35.1 L RDW-SD (test code = 89783-4) 43.4 fL 39-49.9 RDW-CV (test code = 788-0) 17.0 % 12-15.5 H PLT (test code = 777-3) See_Comment [Automated [employer]] The system which generated this result transmitted reference range: 166 - 358 10*3/?L. The reference range was not used to interpret this result as normal/abnormal. MPV (test code = 09015-8) 11.5 fL 9.5-12.9 NRBC/100 WBC (test code = 6773076742) See_Comment [Automated [employer] ssage] The system which generated this result transmitted reference range: 0.0 - 10.0 /100 WBCs. The reference range was not used to interpret this result as normal/abnormal. NRBC x10^3 (test code = 5938052347) <0.01 See_Comment [Automated [employer]] The system which generated this result transmitted reference range: 10*3/?L. The reference range was not used to interpret this result as normal/abnormal. GRAN MAT (NEUT) % (test code = 770-8) 50.4 % IMM GRAN % (test code = 4059966862) 0.30 % LYMPH % (test code = 736-9) 39.9 % MONO % (test code = 5905-5) 8.3 % EOS % (test code = 713-8) 0.8 % BASO % (test code = 706-2) 0.3 % GRAN MAT x10^3(ANC) (test code = 1829103586) 3.84 10*3/uL 1.88-7.09 IMM GRAN x10^3 (test code = 9410074071) <0.03 0-0.06 LYMPH x10^3 (test code = 731-0) 3.04 10*3/uL 1.32-3.29 MONO x10^3 (test code = 742-7) 0.63 10*3/uL 0.33-0.92 EOS x10^3 (test code = 711-2) 0.06 10*3/uL 0.03-0.39 BASO x10^3 (test code = 704-7) <0.03 0.01-0.07 Lab Interpretation (test code = 27612-9) Abnormal [facility] CenterType and Screen - ONCE [id number] 04:44:04 * Test Item Value Reference Range Interpretation Comme nts ABO & RH (test code = 20) O POSITIVE Performed at [facility] Laboratory Services - [facility] Blood [address] Free: [phone] No. [id number] IAT (test code = 1185) Negative Performed at [facility] Laboratory Services - [facility] Blood [address] Free: [phone] No. [id number] [facility] CenterPOCT URINALYSIS W SPECIFIC [id number] 19:42:00* Test Item Value Reference Range Interpretation [...] POCT U APPEAR (test code = 3267) [facility] URINALYSIS W SPECIFIC [id number] 19:42:00* Test Item Value Reference Range Interpretation [...] POCT U APPEAR (test code = 3267) [facility] URINALYSIS W SPECIFIC [id number] 21:46:00* Test Item Value Reference Range Interpretation [...] POCT U APPEAR (test code = 3267) [facility] URINALYSIS W SPECIFIC [id number] 19:31:00* Test Item Value Reference Range Interpretation [...] POCT U APPEAR (test code = 3267) [facility] URINALYSIS W SPECIFIC [id number] 19:45:00* Test Item Value Reference Range Interpretation [...] 3267) Lab Interpretation (test cod e = 09614-6) Abnormal [facility] CenterPOCT URINALYSIS W SPECIFIC [id number] 19:45:00* Test Item Value Reference Range Interpretation [...] 3267) Lab Interpretation (test cod e = 73851-3) Abnormal [facility]"
[2024-09-20] MEDS ORDERED: IBUPROFEN 400 MG TAB ONE (23:26)
[2024-09-21 00:26] LABS: Specific Gravity > 1.030 (1.005-1.030)
[2024-09-21 00:29] LABS: Specific Gravity > 1.030 (1.005-1.030); Urine Bacteria >50 /HPF (<20); Urine Bilirubin NEGATIVE (Negative); Urine Blood Negative (Negative); Urine Clarity Extremely Turbid (Clear); Urine Color Yellow (Yellow); Urine Culture Reflex Order REFLEXED; Urine Glucose NEGATIVE (Negative); Urine Ketones NEGATIVE (Negative); Urine Micro Reflex YN NO BILL MICROSCOPIC; Urine Mucus 4+ /HPF (None Seen); Urine Nitrite NEGATIVE (Negative); Urine Protein TRACE (Negative); Urine Urobilinogen 1+ (Normal)
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
[2024-09-21 09:52] VITALS: TEMP 98.9
[2024-09-21 09:53] VITALS: BP 120/76; O2SAT 99
== END 2024-09-21 01:32 | disposition home or self-care (01) ==
LOC: ER 21:08
DX: M54.50 Low back pain, unspecified (principal); M25.532 Pain in left wrist; R51.9 Headache, unspecified; V49.40XA Driver injured in collision with unspecified motor vehicles in traffic accident, initial encounter
CPT/HCPCS: 70450; 71250; 72125; 74176; 81001; 81025; 87086; 87088

== ENCOUNTER 2025-04-16 18:02 | Emergency (ER) | payer OTHER ==
[2025-04-16] MEDS ORDERED: ACETAMINOPHEN 160 MG/5 ML UCUP ONE (18:08)
--- NOTE | 2025-04-16 18:25 | ER ---
Nurse's Notes [facility] Name: Emily Rahman Age: 25 yrs Sex: Female : 2000 Arrival Date: 04/16/2025 Time: 18:02 Bed 12 Private MD: Diagnosis: Torticollis Presentation: 04/16 18:08 Chief complaint: Patient states: lt sided neck pain since Thursday. reports pain when dd2 trying to look to the lt. Coronavirus screen: At this time, the client does not indicate any symptoms associated with coronavirus-19. Ebola Screen: No symptoms or risks identified at this time. Risk Assessment: Do you want to hurt yourself or someone else? Patient reports no desire to harm self or others. Onset of symptoms was April 14, 2025. 18:08 Method Of Arrival: Ambulatory dd2 18:08 Acuity: CUCA 4 dd2 18:10 Initial Sepsis Screen: Does the patient meet any 2 criteria? No. Patient's initial dd2 sepsis screen is negative. Does the patient have a suspected source of infection? No. Patient's initial sepsis screen is negative. Triage Assessment: 18:09 General: Appears in no apparent distress. uncomfortable, Behavior is calm, cooperative, dd2 appropriate for age. Pain: Complains of pain in left posterior aspect of neck and left lateral aspect of neck. Musculoskeletal: Reports pain in left posterior aspect of neck and left lateral aspect of neck. 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 - Infectious Disease History:: Denies. - Social history:: Smoking status: Patient denies any tobacco usage or history of. Screenin:21 [facility] ED Fall Risk Assessment (Adult) History of falling in the last 3 months, jb4 including since admission No falls in past 3 months (0 pts) Confusion or Disorientation No (0 pts) Intoxicated or Sedated No (0 pts) Impaired Gait No (0 pts) Mobility Assist Device Used No (0 pt) Altered Elimination No (0 pt) Score/Fall Risk Level 0 - 2 = Low Risk Oriented to surroundings, Maintained a safe environment. Abuse screen: Denies threats or abuse. Nutritional screening: No deficits noted. Tuberculosis screening: No symptoms or risk factors identified. Assessment: 18:21 General: Appears in no apparent distress. comfortable, Behavior is calm, cooperative, jb4 appropriate for age. Pain: Complains of pain in neck. Neuro: Level of Consciousness is awake, alert, obeys commands, Oriented to person, place, time, situation. Cardiovascular: Patient's skin is warm and dry. Respiratory: Airway is patent Respiratory effort is even, unlabored, Respiratory pattern is regular, symmetrical. Derm: Skin is intact, Skin is dry, Skin is normal, Skin temperature is warm. Musculoskeletal: Circulation, motion, and sensation intact. Vital Signs: 18:10 BP 132 / 82; Pulse 88; Resp 16; Temp 98.4; Pulse Ox 100% ; Pain 10/10; dd2 18:10 Pain Scale: Adult dd2 ED Course: 18:04 Patient arrived in ED. im 18:06 Peyton Westbrook FNP-C is [facility]. kb 18:06 Vijay Fowler MD is Attending Physician. kb 18:09 Triage completed. dd2 18:09 Arm band placed on right wrist. dd2 18:15 Angelo Amador, RN is Primary Nurse. jb4 18:21 Patient has correct armband on for positive identification. Bed in low position. Call jb4 light in reach. Side rails up X 1. Provided Education on: plan of care. 18:21 No provider procedures requiring assistance completed. Patient did not have IV access jb4 during this emergency room visit. Administered Medications: 18:16 Drug: Acetaminophen PO 650 mg PO once Route: PO; jb4 18:30 Follow up: Response: No adverse reaction jb4 Medication: 18:21 VIS not applicable for this client. jb4 Outcome: 18:24 Discharge ordered by . kb 18:35 Discharged to home ambulatory, jb4 18:35 Condition: stable 18:35 Discharge instructions given to patient, Instructed on discharge instructions, follow up and referral plans. Demonstrated understanding of instructions, follow-up care, 18:36 Patient left the ED. jb4 Signatures: Peyton Westbrook FNP-C FNP-Angelo Chen, RN RN jb4 Yuly Wick JOHNATHAN CHAUDHRY RN RN dd2
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
--- OUTSIDE RECORDS SUMMARY | 2025-04-16 18:32 | XMS REPORT | Continuity of Care Document ---
Author Name Unknown Address [address] [facility] [address] [place] [address] [facility] Address [address] [facility]. [address] [place] [address] Care Team Providers Care Snuff Box Finisher Name Role Phone THERESA LORD Primary Care Physician Unav ailable CUAUHTEMOC JEONG Attending Clinician Unavailable CUAUHTEMOC JEONG Attending Clinician Unavailable JOSIE ERAZO Attending Clinician UnavailJosie Andrade CNM Attending Clinician [phone] Doctor Unassigned, Zeba Attending Clinician U navailTHERESA Mcdowell Attending Clinician Unavail able Risa WHTheresa GRUBBS Attending Clinician + Visit, Ang-Rmchp Nurse Attending Clinician Sabrina Caballero MD Attending Clinician [phone] Ami Paige Attending Clinician [phone] Ultrasound, Zane-Mfm Attending Clinician UnavailaRdha Hodges Attending Clinician + [phone] Sabrina Vickers MD Admitting Clinician [phone] Payers Payer Name Policy Type Policy Number Effective Date Expirati on Date Source [employer] [id number] 2022 00:00:00 [place] [id number] 2022 00:00:00 [facility] [id number] 00:00:00 Problems Condition Name Condition Details Condition Category Status Onset Date Resolution Date Last Treatment Date Treating Clinician Comments Source Nexplanon in place Nexplanon in place Disease Active 5 00:00: 00 [facility] Other general counseling and advice for contracept margie management Other general counseling and advice for contracept margie management Disease Active 5- 00:00: 00 [facility] Routine follow-up Routine follow-up Disease Active 09-01 00:00: 00 [facility] (spontaneo us vaginal delivery) (spontaneo us vaginal delivery) Disease Active 2-07 00:00: 00 [facility] Single live Single live Disease Active 2- 00:00: 00 [facility] History of asthma History of asthma Disease Active 2-07 00:00: 00 [facility] Gestationa l hypertensi on Gestationa l hypertensi on Disease Active 206 00:00: 00 [facility] Gestationa l hypertensi on Gestationa l hypertensi on Disease Active 206 00:00: 00 [facility] Obesity (BMI 30-39.9) Obesity (BMI 30-39.9) Disease Active 2-05 00:00: 00 [facility] 39 weeks gestation of 39 weeks gestation of Disease Active 205 00:00: 00 [facility] Susceptibl e to varicella (non-immun e), currently Susceptibl e to varicella (non-immun e), currently Disease Active 12-20 00:00: 00 Overview: Formattin g of this note might be different from the original. Address pp [facility] Multiparit y Multiparit y Disease Active 12-17 00:00: 00 [facility] Obesity affecting Obesity affecting Disease Active 2016-07 00:00: 00 [facility] Supervisio n of high risk , antepartum Supervisio n of high risk , antepartum Disease Active 2017-1 0-18 00:00: 00 [facility] Allergies, Adverse Reactions, Alerts Allergy Name Allergy Type Status Severity Reaction(s) Onset Date Inactive Date Treating Clinician Comments Source NO KNOWN ALLERGIE S Drug Class Active [facility] Social History Social Habit Start Date Stop Date Quantity Comments Source ASSERTION 2018-11-24 00:00:00 [facility] Exposure to SARS-CoV-2 (event) 2022-09-26 00:00:00 2022-10-06 08:16:[address] [facility] Tobacco use and exposure 2022-10-06 00:00:00 2022-10-06 00:00:00 Smokeless tobacco non-user [facility] Alcohol intake 2022-10-06 00:00:00 2022-10-06 00:00:00 Current non-drinker of alcohol (finding) [facility] Alcohol Comment 2018-12-17 00:00:00 2018-12-17 00:00:00 last sexual intercourse 12/09/2018 [facility] Sex Assigned At 1998 00:00:00 1998 00:00:00 [facility] Smoking Status Start Date Stop Date Source Never smoked tobacco [facility] Medications Ordered Medication Name Filled Medication Name Start Date Stop Date Current Medication? Ordering Clinician Indication Dosage Frequency Signature (SIG) Comments Components Source etonogestre l (NEXPLANON) implant 68 mg 09-22 21:45: 00 09-22 20:45 :00 No [id number] 68mg [facility] varicella virus vaccine live (VARIVAX (PF)) injection 0.5 mL 08-13 13:26: 45 Yes .5mL 0.5 mL, Subcutaneo us, ONCE-PRIOR TO DISCHARGE, 1 dose, Starting 08/13/19 at 0726, Until Discontinu ed, Routine, Give vaccine prior to discharge [facility] ferrous sulfate tablet 325 mg 08-12 15:00: 00 Yes 325mg 325 mg, Oral, DAILY, First dose on 08/12/19 at 0900, Until Discontinu ed, Routine [facility] ibuprofen (IBU) tablet 600 mg 08-12 02:45: 55 Yes 600mg 600 mg, Oral, Q6HPRN, Starting Zeina 08/11/19 at 2044, Until Discontinu ed, Routine, Pain (scale 4-6) [facility] acetaminoph en (TYLENOL) tablet 650 mg 08-12 02:45: 55 Yes 650mg 650 mg, Oral, Q6HPRN, Starting Zeina 08/11/19 at 2044, Until Discontinu ed, Routine, Pain (scale 1-3) [facility] diphenhydrA MINE (BENADRYL) tablet 25 mg 08-12 02:45: 55 Yes 25mg 25 mg, Oral, Q6HPRN, Starting Zeina 08/11/19 at 2044, Until Discontinu ed, Routine, Sleep, Itching [facility] ondansetron (ZOFRAN (PF)) injection 4 mg 08-12 02:45: 55 Yes 4mg 4 mg, Slow IV Push, Q8HPRN, Starting Zeina 08/11/19 at 2044, Until Discontinu ed, Routine, Nausea and Vomiting (N/V) [facility] simethicone (GAS RELIEF (SIMETHICON E)) chewable tablet 160 mg 08-12 02:45: 55 Yes 160mg 160 mg, Oral, PC+HSPRN, Starting Zeina 08/11/19 at 2044, Until Discontinu ed, Routine, Gas [facility] docusate calcium (SURFAK) capsule 240 mg 08-12 02:45: 55 Yes 240mg 240 mg, Oral, QDAILYPRN, Starting Zeina 08/11/19 at 2044, Until Discontinu ed, Routine, Constipati on [facility] magnesium hydroxide (MILK OF MAGNESIA) 400 mg/5 mL suspension 30 mL 08-12 02:45: 55 Yes 30mL 30 mL, Oral, QDAILYPRN, Starting Zeina 08/11/19 at 2044, Until Discontinu ed, Routine, Constipati on [facility] benzocaine- menthol (DERMOPLAST ) 20-0.5 % topical spray 08-12 02:45: 55 Yes Topical, PRN, Starting Zeina 08/11/19 at 2045, Until Discontinu ed, Routine, Perineum discomfort [facility] docusate calcium 240 mg capsule 08-12 00:00: 00 09-25 00:00 :00 No [id number] 240mg Take 1 capsule by mouth once daily as needed for Constipati on. [facility] ibuprofen 600 mg tablet 08-12 00:00: 09-25 00:00 :00 No [id number] 600mg Take 1 tablet by mouth every 6 (six) hours as needed (Pain). Take with food or milk. [facility] Iron Fum & P-FA-Vit B & C No.9 (INTEGRA PLUS) 125 mg iron- 1 mg Cap 08-12 00:00: 00 09-25 00:00 :00 No [id number] 1{capsu le} Take 1 capsule by mouth daily. [facility] amnioinfusi on IV infusion via [...] until the liter is complete.& nbsp;&nbsp ;Notify Editorial Intern if uterine resting tone exceeds 25 mmHg at any time during the amnioinfus ion. Obst etrics (KARINA) Aminoinfus ion Orders
[facility] lactated ringers IV infusion 500 mL 08-11 17:45: 00 08-11 16:45 :00 No 500mL at 999 mL/hr, 500 mL, IV Infusion, ONCE, 1 dose, Zeina 08/11/19 at 1145, Routine [facility] ondansetron (ZOFRAN (PF)) injection 4 mg 08-11 08:15: 00 08-11 07:12 :00 No 4mg 4 mg, Slow IV Push, ONCE, 1 dose, Zeina 08/11/19 at 0215, Routine [facility] D5W-LR IV infusion 1,000 mL 08-11 04:00: 00 08-12 02:46 :09 No 1000mL at 125 mL/hr, IV Infusion, CONTINUOUS , Starting 08/10/19 at 2200, Until Zeina 08/11/19 at 2046, Routine [facility] LR 1000 mL + oxytocin 20 units IV Solution 08-11 03:55: 08 08-12 02:46 :09 No 2mU/min 2 julio-unit s/min (6 mL/hr), at 6 mL/hr, IV Infusion, TITRATE, Starting 08/10/19 at 2155, Until Zeina 08/11/19 at 2045, RADHA, Oxytocin Induction / Augmentati on of Labor. [facility] sodium citrate-cit jaycee acid (BICITRA) 500-334 mg/5 mL solution 30 mL 08-11 03:51: 29 08-11 16:38 :00 No 30mL 30 mL, Oral, PRE-PROCED URE ONCE, 1 dose, Starting Thu08/10/19 at 2151, Until Discontinu ed, Routine, Surgery/Pr ocedure [facility] ferrous sulfate 325 mg (65 mg iron) tablet 12-10 00:00: 00 08-12 00:00 :00 No [id number] 325mg Take 1 tablet by mouth 2 (two) times daily. [facility] ascorbic acid, vitamin C, 500 mg tablet 12-10 00:00: 00 08-12 00:00 :00 No [id number] 500mg Take 1 tablet by mouth 3 (three) times daily. [facility] doxylamine- pyridoxine, vit B6, (DICLEGIS) 10-10 mg per tablet 2016-07 00:00: 00 08-12 00:00 :00 No [id number] 2{tbl} Take 2 tablets by mouth at bedtime. [facility] PNV 67-iron ps-folate no.1-dha (VITAFOL ULTRA) 29 mg iron- 1 mg-200 mg Cap 2017-1 0-18 00:00: 00 08-12 00:00 :00 No [id number] 1{each} Take 1 Each by mouth daily. [facility] Vital Signs Vital Name Observation Time Observation Value Comments S salvatore Systolic blood pressure 2022-10-06 13:30:00 113 mm[Hg] [facility] Diastolic blood pressure 2022-10-06 13:30:00 73 mm[Hg] [facility] Heart rate 2022-10-06 13:30:00 77 /min Un[facility] Body temperature 2022-10-06 13:30:[address] [facility] Respiratory rate 2022-10-06 13:30:00 18 /min [facility] Body height 2022-10-06 13:30:00 162.6 cm [facility] Body weight 2022-10-06 13:30:00 106.051 kg [facility] BMI 2022-10-06 13:30:00 40.13 kg/m2 [facility] Systolic blood pressure 2022-09-25 18:35:00 125 mm[Hg] [facility] Diastolic blood pressure 2022-09-25 18:35:00 84 mm[Hg] [facility] Heart rate 2022-09-25 18:35:00 110 /min Unive [facility] Body temperature 2022-09-25 18:35:[address] [facility] Respiratory rate 2022-09-25 18:35:00 20 /min [facility] Body height 2022-09-25 18:35:00 162.6 cm [facility] Body weight 2022-09-25 18:35:00 103.964 kg [facility] BMI 2022-09-25 18:35:00 39.34 kg/m2 [facility] Systolic blood pressure 2020-02-20 18:45:00 109 mm[Hg] [facility] Diastolic blood pressure 2020-02-20 18:45:00 73 mm[Hg] [facility] Heart rate 2020-02-20 18:45:00 77 /[facility] 2020-02-20 18:45:[address] [facility] Respiratory rate 2020-02-20 18:45:00 16 /min [facility] Body height 2020-02-20 18:45:00 162.6 [facility] 2020-02-20 18:45:00 91.768 [facility] BMI 2020-02-20 18:45:00 34.73 kg/m2 [facility] Systolic blood pressure 2019-09-23 20:15:00 125 mm[Hg] [facility] Diastolic blood pressure 2019-09-23 20:15:00 77 mm[Hg] [facility] Heart rate 2019-09-23 20:15:00 78 /min [facility] 2019-09-23 20:15:[address] [facility] Respiratory rate 2019-09-23 20:15:00 16 /min [facility] Body height 2019-09-23 20:15:00 162.6 cm [facility] 2019-09-23 20:15:00 85.475 [facility] BMI 2019-09-23 20:15:00 32.35 kg/m2 [facility] Systolic blood pressure 2019-09-01 16:15:00 114 mm[Hg] [facility] Diastolic blood pressure 2019-09-01 16:15:00 68 mm[Hg] [facility] Heart rate 2019-09-01 16:15:00 74 /min [facility] Body temperature 2019-09-01 16:15:[address] [facility] Respiratory rate 2019-09-01 16:15:00 16 /min [facility] Body height 2019-09-01 16:15:00 162.6 cm [facility] weight 2019-09-01 16:15:00 85.333 kg Univ ers[facility] BMI 2019-09-01 16:15:00 32.29 kg/m2 [facility] Systolic blood pressure 2019-08-18 21:56:00 124 mm[Hg] [facility] Diastolic blood pressure 2019-08-18 21:56:00 80 mm[Hg] [facility] Heart rate 2019-08-18 21:56:00 92 /min Unive [facility] Body temperature 2019-08-18 21:56:[address] [facility] Respiratory rate 2019-08-18 21:56:00 16 /min [facility] Body height 2019-08-18 21:56:00 160 cm [facility] Body weight 2019-08-18 21:56:00 86.592 kg [facility] BMI 2019-08-18 21:56:00 33.82 kg/m2 [facility] Systolic blood pressure 2019-08-13 14:00:00 119 mm[Hg] [facility] Diastolic blood pressure 2019-08-13 14:00:00 76 mm[Hg] [facility] Heart rate 2019-08-13 14:00:00 74 /min Un[facility] Body temperature 2019-08-13 14:00:[address] [facility] Respiratory rate 2019-08-13 14:00:00 18 /min [facility] Oxygen saturation in Arterial blood by Pulse oximetry 2019-08-13 14:00:00 99 /min [facility] Body height 2019-08-11 02:00:00 162 cm [facility] Body weight 2019-08-11 02:00:00 94.348 kg [facility] BMI 2019-08-11 02:00:00 35.95 kg/m2 [facility] Systolic blood pressure 2019-08-03 19:39:00 116 mm[Hg] [facility] Diastolic blood pressure 2019-08-03 19:39:00 75 mm[Hg] [facility] Heart rate 2019-08-03 19:39:00 116 /min Un[facility] Body temperature 2019-08-03 19:39:[address] [facility] Respiratory rate 2019-08-03 19:39:00 16 /min [facility] Body height 2019-08-03 19:39:00 165.1 cm [facility] Body weight 2019-08-03 19:39:00 95.369 kg [facility] BMI 2019-08-03 19:39:00 34.99 kg/m2 [facility] Systolic blood pressure 2019-07-26 21:14:00 134 mm[Hg] [facility] Diastolic blood pressure 2019-07-26 21:14:00 87 mm[Hg] [facility] Heart rate 2019-07-26 21:14:00 92 /min Un[facility] Body temperature 2019-07-26 21:14:[address] [facility] Respiratory rate 2019-07-26 21:14:00 16 /min [facility] Body height 2019-07-26 21:14:00 165.1 cm [facility] Body weight 2019-07-26 21:14:00 96.389 kg [facility] BMI 2019-07-26 21:14:00 35.36 kg/m2 [facility] Systolic blood pressure 2019-03-22 19:25:00 113 mm[Hg] [facility] Diastolic blood pressure 2019-03-22 19:25:00 72 mm[Hg] [facility] Heart rate 2019-03-22 19:25:00 93 /min Un[facility] Body temperature 2019-03-22 19:25:[address] [facility] Respiratory rate 2019-03-22 19:25:00 16 /min [facility] Body height 2019-03-22 19:25:00 160 cm [facility] Body weight 2019-03-22 19:25:00 93.441 kg [facility] BMI 2019-03-22 19:25:00 36.49 kg/m2 [facility] Systolic blood pressure 2019-02-21 19:44:00 134 mm[Hg] [facility] Diastolic blood pressure 2019-02-21 19:44:00 77 mm[Hg] [facility] Heart rate 2019-02-21 19:44:00 101 /min [facility] Body temperature 2019-02-21 19:44:[address] [facility] Respiratory rate 2019-02-21 19:44:00 16 /min [facility] Body height 2019-02-21 19:44:00 160 cm [facility] Body weight 2019-02-21 19:44:00 94.121 kg [facility] BMI 2019-02-21 19:44:00 36.76 kg/m2 [facility] Procedures Procedure Date / Time Performed Performing Clinician Source DISCLOSURE AND CONSENT, MEDICAL AND SURGICAL PROCEDURES 2022-10-06 05:01:00 Doctor Unassigned, Zeba [facility] GARDASIL 9 (HPV 9V) VACCINE 2022-09-25 18:54:[address] [facility] ASSIGNMENT OF BENEFITS 2022-09-25 18:15:42 Jose Cruz florence Unassigned, Zeba [facility] GARDASIL 9 (HPV 9V) VACCINE 2020-02-20 19:16:[address] [facility] ASSIGNMENT OF BENEFITS 2020-02-20 18:38:40 Jose Cruz florence Unassigned, Zeba [facility] GARDASIL 9 (HPV 9V) VACCINE 2019-09-23 21:08:[address] [facility] POCT TEST 2019-09-23 20:16:[address] [facility] CONSENT FOR CONTRACEPTION 2019-09-23 05:01:00 Doctor Unassigned, Zeba [facility] CBC WITH DIFFERENTIAL 2019-08-12 09:42:[address] [facility] VENOUS CORD GAS 2019-08-11 23:27:[address] [facility] URINALYSIS 2019-08-11 12:19:00 P[facility]ly [facility] PROTEIN CREAT RATIO URINE RANDOM 2019-08-11 12:19:[address] [facility] LACTATE DEHYDROGENASE 2019-08-11 07:31:[address] [facility] CBC WITH DIFFERENTIAL 2019-08-11 07:31:[address] [facility] SGOT (ASPARTATE AMINO TRANSFER) 2019-08-11 04:05:[address] [facility] CREATININE 2019-08-11 04:05:00 [place] [facility] ALANINE AMINO TRANSFERASE(SGPT 2019-08-11 04:05:[address] [facility] URIC ACID 2019-08-11 04:05:00 P[place] [facility] HEPATITIS B SURFACE ANTIGEN 2019-08-11 04:05:[address] [facility] GALV ONLY - SYPHILIS IGG/IGM 2019-08-11 04:05:[address] [facility] HB ABO GROUPING 2019-08-11 04:04:[address] [facility] RHO (D) IMMUNE GLOBULIN 2019-08-11 04:04:[address] [facility] POCT URINALYSIS 2019-08-03 19:42:[address] [facility] POCT URINALYSIS 2019-07-26 21:46:[address] [facility] POCT URINALYSIS 2019-03-22 19:31:[address] [facility] POCT URINALYSIS 2019-02-21 19:44:[address] [facility] Encounters Start Date/Time End Date/Time Encounter Type Admission Type Attending Clinicians Care Facility Care Department Encounter ID Source 2024-06-14 14:00:00 2024-06-14 14:00:00 Outpatient CUAUHTEMOC POWER VIVIAN [facility] [id number] [facility] 2022-10-06 08:30:00 2022-10-06 08:59:30 Outpatient JOSIE BABCOCK [facility] [id number] [facility] 2022-10-06 08:30:00 2022-10-06 08:59:30 Office Visit Josie Erazo [facility] 1..114 350.1.13.10 4.2.7.2.686 [id number] [facility] 2022-10-06 00:00:00 2022-10-06 00:00:00 Orders Only Doctor Unassigned, Zeba [facility] [id number] 350.1.13.10 4.2.7.2.686 [id number] [facility] 2022-09-25 13:15:00 2022-09-25 14:35:28 Outpatient R THERESA LORD [facility] [id number] [facility] 2022-09-25 13:15:00 2022-09-25 14:35:28 Office Visit Theresa Lord [facility] 1.84.114 350.1.13.10 4.2.7.2.686 [id number] [facility] 2022-09-25 00:00:00 2022-09-25 00:00:00 Orders Only Doctor Unassigned, Zeba [facility] 1.2.114 350.1.13.10 4.2.7.2.686 [id number] [facility] 2020-05-23 14:00:00 2020-05-23 14:00:00 Outpatient R [facility] [id number] [facility] 2020-02-20 13:40:12 2020-02-20 14:05:43 Nurse Visit Visit, Zane-Rmchp Nurse [facility] 1.84.114 350.1.13.10 4.2.7.2.686 [id number] [facility] 2020-02-20 13:30:00 2020-02-20 13:30:00 Outpatient R THERESA LORD [facility] [id number] [facility] 2020-02-20 00:00:00 2020-02-20 00:00:00 Orders Only Doctor Unassigned, Zeba [facility] 1.114 350.1.13.10 4.2.7.2.686 [id number] [facility] 2019-11-23 13:00:00 2019-11-23 13:00:00 Outpatient R [facility] [id number] [facility] 2019-11-09 14:15:00 2019-11-09 14:15:00 Outpatient R THERESA LORD [facility] [id number] [facility] 2019-11-09 12:42:08 2019-11-09 12:57:08 Telemedici ne Visit Theresa Lord [facility] 1..114 350.1.13.10 4.2.7.2.686 [id number] [facility] 2019-10-07 13:30:00 2019-10-07 13:30:00 Outpatient R THERESA LORD [facility] [id number] [facility] 2019-10-06 08:45:00 2019-10-06 08:45:00 Outpatient R THERESA LORD [facility] [id number] [facility] 2019-10-06 00:00:00 2019-10-06 00:00:00 Telephone Theresa Lord [employer] [facility]ILD [facility] 1..114 350.1.13.10 4.2.7.2.686 [id number] [facility] 2019-09-23 15:04:55 2019-09-23 16:09:38 Office Visit Theresa Lord [employer]ILD [facility] 1..114 350.1.13.10 4.2.7.2.686 [id number] [facility] 2019-09-23 15:00:00 2019-09-23 15:00:00 Outpatient R THERESA LORD [facility] [id number] [facility] 2019-09-23 00:00:00 2019-09-23 00:00:00 Orders Only Doctor Unassigned, Zeba [facility] 1.2.840.114 350.1.13.10 4.2.7.2.686 [id number] [facility] 2019-09-01 10:02:22 2019-09-01 10:17:22 Routine Visit Theresa Lord [employer] 1.2840.114 350.1.13.10 4.2.7.2.686 [id number] [facility] 2019-09-01 09:30:00 2019-09-01 09:30:00 Outpatient R THERESA LORD [facility] [id number] [facility] 2019-08-18 09:28:08 2019-08-18 09:52:41 Nurse Visit Visit, Ang-Rmchp Nurse Theresa Lord [employer] [facility] 1.840.114 350.1.13.10 4.2.7.2.686 [id number] [facility] 2019-08-10 18:34:00 2019-08-13 14:36:00 Hospital Encounter Sabrina Vickers [facility] 1.2840.114 350.1.13.10 4.2.7.2.686 [id number] [facility] 2019-08-03 13:13:09 2019-08-03 13:53:30 Routine Visit Theresa Lord [employer] [facility] 1.2840.114 350.1.13.10 4.2.7.2.686 [id number] [facility] 2019-07-26 14:51:29 2019-07-26 15:37:05 Routine Visit Theresa Lord [facility]ILD [facility] 1.2.840.114 350.1.13.10 4.2.7.2.686 [id number] [facility] 2019-03-22 14:01:38 2019-03-22 14:51:32 Routine Visit Theresa Lord Emily N [facility] MAT[facility]NAL & CHILD [facility] 1.2.840.114 350.1.13.10 4.2.7.2.686 [id number] [facility] 2019-03-22 00:00:00 2019-03-22 00:00:00 Telephone Theresa Lord [facility] & CHILD [facility] [id number] 350.1.13.10 4.2.7.2.686 [id number] [facility] 2019-02-23 11:21:38 2019-02-23 11:46:18 Children'S Literature Professor Visit Ultrasound, Sabrina Prabhakar [facility] & CHILD [facility] [id number] 350.1.13.10 4.2.7.2.686 [id number] [facility] 2019-02-23 00:00:00 2019-02-23 00:00:00 Abstract Radha Arboleda [facility] & CHILD [facility] 1.2.840.114 350.1.13.10 4.2.7.2.686 [id number] [facility] 2019-02-21 14:37:15 2019-02-21 15:06:20 Routine Visit Radha Arboleda [facility] [id number] [facility] Results Test Description Test Time Test Comments Results Result Co mments Source [facility]PO[facility] [id number] 20:17:00* Test Item Value Reference Range Interpretation Comme nts POCT PREG (test code = 1605) Negative On board controls acceptable with C Line (test code = 3574) Yes POCT PREG LOT # (test code = 3575) POCT PREG TEST DATE ( test code = 3576) [facility]GAL[facility] ONLY - SYPHILIS IGG/[id number] 14:54:00* Test Item Value Reference Range Interpretation Comme nts Syphilis IgG/IgM (test code = 21096-4) Non-reactive Non-reactive FARHAD (test code = FARHAD) Non-reactive - No serologic evidence of T. pallidum infection. Cannot exclude incubating or early syphilis. Submit a second specimen in 2-4 weeks if syphilis is clinically suspected. Equivocal - Further testing to follow. Reactive - Further testing to follow. Lab Interpretation (test code = 02882-5) Normal [facility] CenterCBC WITH [id number] 10:19:00* Test Item Value Reference Range Interpretation [...] g/dL 31.6-35.1 L RDW-SD (test code = 62216-7) 44.3 fL 39-49.9 RDW-CV (test code = 788-0) 16.9 % 12-15.5 H PLT (test code = 777-3) See_Comment [Automated message] The system which generated this result transmitted reference range: 166 - 358 10*3/?L. The reference range was not used to interpret this result as normal/abnormal. MPV (test code = 95738-8) 12.1 fL 9.5-12.9 NRBC/100 WBC (test code = 7402843540) See_Comment [Automated message] The system which generated this result transmitted reference range: 0.0 - 10.0 /100 WBCs. The reference range was not used to interpret this result as normal/abnormal. NRBC x10^3 (test code = 6874064899) <0.01 See_Comment [Automated message] The system which generated this result transmitted reference range: 10*3/?L. The reference range was not used to interpret this result as normal/abnormal. GRAN MAT (NEUT) % (test code = 770-8) 70.9 % IMM GRAN % (test code = 9223581910) 0.50 % LYMPH % (test code = 736-9) 21.0 % MONO % (test code = 5905-5) 7.2 % EOS % (test code = 713-8) 0.2 % BASO % (test code = 706-2) 0.2 % GRAN MAT x10^3(ANC) (test code = 5961362106) 10.09 10*3/uL 1.88-7.09 H IMM GRAN x10^3 (test code = 2720781101) 0.07 10*3/uL 0-0.06 H LYMPH x10^3 (test code = 731-0) 2.98 10*3/uL 1.32-3.29 MONO x10^3 (test code = 742-7) 1.02 10*3/uL 0.33-0.92 H EOS x10^3 (test code = 711-2) 0.03 10*3/uL 0.03-0.39 BASO x10^3 (test code = 704-7) 0.03 10*3/uL 0.01-0.07 Lab Interpretation (test code = 26770-2) Abnormal [facility] CenterRHO (D) IMMUNE [id number] 02:49:21* Test Item Value Reference Range Interpretation Comme nts RHIG CANDIDATE? (test code = 5055) No- see comment Patient is not a candidate for RhIg- Patient is Rh Positive.Performed at [facility] Blood [address] [address]Etef Free: [phone] No. [id number] [facility] CenterVENOUS CORD [id number] 23:39:00* Test Item Value Reference Range Interpretation Comme nts VENOUS BASE EXCESS, CORD (test code = 7756822969) mEq/L VENOUS PH, CORD (test code = 9629775883) 7.25-7.45 VENOUS PC02, CORD (test code = 8950938251) See_Comment [Automated messa ge] The system which generated this result transmitted reference range: 27 - 49 mmHg. The reference range was not used to interpret this result as normal/abnormal. VENOUS PO2, CORD (test code = 9199687329) See_Comment [Automated me ssage] The system which generated this result transmitted reference range: 17 - 41 mmHg. The reference range was not used to interpret this result as normal/abnormal. VENOUS BICARBONATE, CORD (test code = 5859161490) See_Comment [Automated messa ge] The system which generated this result transmitted reference range: 12 - 29 mEq/L. The reference range was not used to interpret this result as normal/abnormal. [facility] CenterARTERIAL CORD [id number] 23:39:00* Test Item Value Reference Range Interpretation Comme nts BASE EXCESS, CORD (test code = 5236510163) mEq/L AC PH, CORD (BEAKER) (test code = 0688325089) 7.18-7.38 PC02, CORD (test code = 3397799721) See_Comment [Automated messa ge] The system which generated this result transmitted reference range: 32 - 66 mmHg. The reference range was not used to interpret this result as normal/abnormal. PO2, CORD (test code = 8891595228) See_Comment [Automated messa ge] The system which generated this result transmitted reference range: 10 - 30 mmHg. The reference range was not used to interpret this result as normal/abnormal. BICARBONATE, CORD (test code = 7046786458) See_Comment [Automated messa ge] The system which generated this result transmitted reference range: 17 - 27 mEq/L. The reference range was not used to interpret this result as normal/abnormal. [facility] CenterProtein CREAT Ratio Urine [id number] 13:03:00* Test Item Value Reference Range Interpretation Comme nts T. PROT U (test code = 2888-6) 12 mg/dL CREAT U (test code = 8279131192) 215.7 mg/dL Protein/Creatinine Ratio Uri ne (test code = 3400979517) 0.0-2.0 [facility] CenterUrinalysis2020-02-06 12:45:00* Test Item Value Reference Range Interpretation Comme nts APPEARANCE (test code = 7155457524) Hazy Clear A COLOR (test code = 7703617485) Yellow Yellow PH (test code = 5770448470) 4.8-8.0 SP GRAVITY (test code = 5284894337) 1.003-1.030 GLU U QUAL (test code = 2937063612) Normal Normal BLOOD (test code = 0285287775) Negative Negative INTERFERENCE FRO M ASCORBIC ACID MAY CAUSE FALSE NEGATIVE RESULT KETONES (test code = 3107227948) 5 mg/dL Negative A PROTEIN (test code = 2887-8) 30 mg/dL Negative A UROBILIN (test code = 9664605306) 4.0 mg/dL Normal A BILIRUBIN (test code = 3542069549) Negative Negative NITRITE (test code = 6661024605) Negative Negative LEUK REFUGIO (test code = 6366445518) 25/uL Negative A RBC/HPF (test code = 4771686838) See_Comment [Automated messa ge] The system which generated this result transmitted reference range: 0 - 3 HPF. The reference range was not used to interpret this result as normal/abnormal. WBC/HPF (test code = 4907908578) See_Comment H [Automated messa ge] The system which generated this result transmitted reference range: 0 - 5 HPF. The reference range was not used to interpret this result as normal/abnormal. BACTERIA (test code = 4356602766) Moderate Negative A MUCOUS (test code = 2168938565) Marked Negative LPF A SQ EPITH (test code = 0797920143) See_Comment H [Automated messa ge] The system which generated this result transmitted reference range: <=2 HPF. The reference range was not used to interpret this result as normal/abnormal. Lab Interpretation (test code = 70478-6) Abnormal [facility] CenterHepatitis B Surface [id number] 09:09:00 * Test Item Value Reference Range Interpretation Comme nts HBsAg Semi-Quantitative (darryl t code = 5195-3) Negative Negative [facility] CenterLactate Ujaegvvdpoyqf3829-79-31 08:41:00* Test Item Value Reference Range Interpretation Comme nts LDH (test code = 8339523021) 433 U/L 300-600 Lab Interpretation (test cod e = 36286-1) Normal [facility] CenterUric Acid Uwlft1420-48-42 08:11:00* Test Item Value Reference Range Interpretation Comme nts URIC ACID (test code = 7399257911) 4.1 mg/dL 2.9-6 Lab Interpretation (test cod e = 35910-6) Normal [facility] Jxmarandly1004-79-87 08:11:00* Test Item Value Reference Range Interpretation Comme nts CREATININE (test code = 0588127196) 0.50 mg/dL 0.5-1.04 eGFR Calculation (Non-) (test code = 5662453992) mL/min/1.73m2 eGFR Calculation () (test code = 3987418277) mL/min/1.73m2 FARHAD (test code = FARHAD) Association [...] or urine or abnormalities in imaging tests). [facility] CenterSGOT (Asparate Amino Transfer)2019-08-11 08:11:00* Test Item Value Reference Range Interpretation Comme [facility] AST(SGOT) (test code = 6243941747) 22 U/L 13-40 Lab Interpretation (test cod e = 67194-9) Normal [facility] CenterAlanine Amino Transferase (SGPT)2019-08-11 08:11:00* Test Item Value Reference Range Interpretation Comme nts ALTv (test code = 1742-6) 10 U/L 5-35 Lab Interpretation (test cod e = 53287-5) Normal [facility] CenterCB WITH [id number] 07:44:00* Test Item Value Reference Range Interpretation Comme nts WBC (test code = 6690-2) See_Comment [Automated [employer] Trump[employer] Search] The system which generated this result transmitted reference range: 4.30 - 11.10 10*3/?L. The reference range was not used to interpret this result as normal/abnormal. RBC (test code = 789-8) See_Comment [Automated [employer] Trump[employer] Search] The system which generated this result transmitted [...] g/dL 31.6-35.1 L RDW-SD (test code = 64680-0) 43.4 fL 39-49.9 RDW-CV (test code = 788-0) 17.0 % 12-15.5 H PLT (test code = 777-3) See_Comment [Automated [employer] ge] The system which generated this result transmitted reference range: 166 - 358 10*3/?L. The reference range was not used to interpret this result as normal/abnormal. MPV (test code = 29625-9) 11.5 fL 9.5-12.9 NRBC/100 WBC (test code = 3178358511) See_Comment [Automated Vetiary ssage] The system which generated this result transmitted reference range: 0.0 - 10.0 /100 WBCs. The reference range was not used to interpret this result as normal/abnormal. NRBC x10^3 (test code = 6465327586) <0.01 See_Comment [Automated [employer] ge] The system which generated this result transmitted reference range: 10*3/?L. The reference range was not used to interpret this result as normal/abnormal. GRAN MAT (NEUT) % (test code = 770-8) 50.4 % IMM GRAN % (test code = 9293877739) 0.30 % LYMPH % (test code = 736-9) 39.9 % MONO % (test code = 5905-5) 8.3 % EOS % (test code = 713-8) 0.8 % BASO % (test code = 706-2) 0.3 % GRAN MAT x10^3(ANC) (test code = 0015963392) 3.84 10*3/uL 1.88-7.09 IMM GRAN x10^3 (test code = 9086977346) <0.03 0-0.06 LYMPH x10^3 (test code = 731-0) 3.04 10*3/uL 1.32-3.29 MONO x10^3 (test code = 742-7) 0.63 10*3/uL 0.33-0.92 EOS x10^3 (test code = 711-2) 0.06 10*3/uL 0.03-0.39 BASO x10^3 (test code = 704-7) <0.03 0.01-0.07 Lab Interpretation (test code = 62555-0) Abnormal [facility] CenterType and Screen - ONCE [id number] 04:44:04 * Test Item Value Reference Range Interpretation Comme nts ABO & RH (test code = 20) O POSITIVE Performed at [facility] Services - [facility] Blood [place] [address]Toll Free: [phone] No. [id number] IAT (test code = 1185) Negative Performed at [facility] Laboratory Services [facility] Blood [address] Free: [phone] No. [id number] [facility] CenterPOCT URINALYSIS W SPECIFIC ESTETEA5639-98-00 19:42:00* Test Item Value Reference Range Interpretation [...] POCT U APPEAR (test code = 3267) [facility] URINALYSIS W SPECIFIC MYJJRYO4960-02-30 19:42:00* Test Item Value Reference Range Interpretation [...] POCT U APPEAR (test code = 3267) [facility] URINALYSIS W SPECIFIC NFVMTLM5628-07-03 21:46:00* Test Item Value Reference Range Interpretation [...] POCT U APPEAR (test code = 3267) [facility] URINALYSIS W SPECIFIC NRQUEIC2615-32-22 19:31:00* Test Item Value Reference Range Interpretation [...] POCT U APPEAR (test code = 3267) [facility] URINALYSIS W SPECIFIC KGMVRYV0905-08-65 19:45:00* Test Item Value Reference Range Interpretation [...] 3267) Lab Interpretation (test cod e = 90498-8) Abnormal [facility] URINALYSIS W SPECIFIC [id number] 19:45:00* Test Item Value Reference Range Interpretation [...] 3267) Lab Interpretation (test cod e = 22912-7) Abnormal [facility]"
[2025-04-17 00:40] VITALS: BP 132/82; TEMP 98.4; O2SAT 100
== END 2025-04-16 18:36 | disposition home or self-care (01) ==
LOC: ER 18:02
DX: M43.6 Torticollis (principal)
CPT/HCPCS: 99283